=== PATIENT | male | born 1945 | race Two or more races ===

== ENCOUNTER 2025-04-23 00:31 | Inpatient (IN) | payer MEDICAID ==
[~2025-04-23] VITALS: Ht 160 cm; Wt 56.4 kg
[2025-04-23] VITALS (38 sets, daily range): BP systolic 63–147; BP diastolic 12–105; PULSE 129–146; RESP 14–31; TEMP 97.4–97.8; O2SAT 89–100
--- NOTE | 2025-04-23 01:09 | ECG ---
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
[2025-04-23] MEDS: LABETALOL HCL 20 MG/4 ML VL IV ONE ×2 (01:34→05:01)
--- NOTE | 2025-04-23 01:47 | ED.PDOC ---
History of Present Illness HPI Comments 79 y /o M presents with c/c bilateral leg swelling. Patient reports on history of chronic leg swelling and taking a medication, that he is unable to recollect the name of, from [place] to manage symptoms. Patient is a poor historian. He reports a history of DM, HTN, and unspecified 'heart issue.' He endorses on not taking said medication for awhile. Upon triage assessment, patient has a blood pressure of 180/116 and a pulse of 140. Patient denies having any chest pain, shortness of breath, and dizziness. Chief Complaint: Extremity Swelling Time Seen by MD: 01:00 Reviewed Notes: Nurses Notes, Medications, Allergies Allergies: Coded Allergies: NO KNOWN ALLERGIES (Unverified , 04/23/25) Information Source: Patient Mode of Arrival: Ambulatory Severity: Moderate Timing: Days Duration: Since onset Prehospital treatment: None Past Medical History PAST MEDICAL HISTORY: DM, HTN Past Medical History (Other): unspecified 'heart issue' Surgical History: Denies all surgeries Family History Family History: Unknown Social History Smoker: Non-Smoker Alcohol: Denies ETOH Use Drugs: Denies Drug Use Lives In: Home All Other Systems: Reviewed and Negative (Comprehensive review of systems are negative unless otherwise stated above or in HPI) Physical Exam General Appearance: No Apparent Distress, Normal HEENT: Normal ENT Inspection, Pharynx Normal, TMs Normal Neck: Full Range of Motion, Non-Tender, Normal, Normal Inspection Respiratory: Chest Non-Tender, Lungs Clear, No Accessory Muscle Use, No Respiratory Distress, Normal Breath Sounds Cardiovascular: No Edema, No JVD, No Murmur, No Gallop, Normal Peripheral Pulses, Regular Rate/Rhythm Breast Exam: Deferred Gastrointestinal: No Organomegaly, Non Tender, No Pulsatile Mass, Normal Bowel Sounds, Soft Genitalia: Deferred Pelvic: Deferred Rectal: Deferred Extremities: Leg edema (bilateral pitting edema to mid edgar ), No calf tenderness, Normal capillary refill, Normal range of motion, Non-tender, No pedal edema Musculoskeletal : Apperance: Normal Neurologic: Alert, lawyer II-XII nml as Tested, No Motor Deficits, Normal Affect, Normal Mood, No Sensory Deficits Cerebellar Function: Normal Reflexes: Normal Skin: Dry, Normal Color, Warm Lymphatic: No Adenopathy Was a procedure done? Was a procedure done?: Yes Sedation Sedation?: Yes Informed consent obtained: No Sedation start time: 00:00 Sedation end time: 00:00 Sedation total time: Patient was on going prior to and after the procedure was performed. Patient was intubated in ICU and on continuous sedation prior to my performing the procedure. Central Line Recorder of insertion practice: Thrill Performer Occupation of separator inserter: Attending Physician Indication: Hypotension, Relpace: line malfunction Room prepared for procedure: Yes Thrill Performer performed hand hygien: Yes Maximal sterile barrier precau: Mask/Eye shield, Sterile gown, Sterlie gloves, Large sterlie drape Skin Preparation: Chlorhexidine gluconate Skin preparation completely dr: Yes Insertion site: Right, Femoral Central line catheter type: [id number] dialysis Number of lumens: 3 Central line exchanged over a: Yes Antiseptic ointment applied to: No Post Assessment: Proper placement Informed consent obtained: No Risks/benefits/alt described: No UTO Consent Procedure was emergent, patient had already been intubated and sedated, no family was available at the time of the procedure to provide consent. Note: This procedure was performed by me after the patient had already been admitted and was in ICU. EKG EKG : Pulse Rate (adult): 145 [place]: Normal Cardiac Rhythm: Afib Block: None Hypertrophy: None ST: Normal Differential Dx Considerations may include: fluid retention, medication noncompliance, electrolyte imbalance, renal insufficiency, among others X-Ray, Labs, Meds, VS Vital Signs Date Time Temp Pulse Resp B/P (MAP) Pulse Ox O2 Delivery O2 Flow Rate FiO2 04/23/25 04:32 134 04/23/25 04:00 134 17 131/94 (106) 94 04/23/25 03:00 136 23 131/97 (108) 97 04/23/25 02:34 137 131/94 04/23/25 01:47 145 04/23/25 01:40 138 27 121/83 (96) 97 04/23/25 01:34 144 202/121 04/23/25 01:11 98.0 147 18 177/125 (142) 83 98.0 04/23/25 01:10 98.4 146 15 202/121 (148) 97 98.4 04/23/25 01:10 146 15 91 Room Air* 0 21 04/23/25 00:59 145 Lab Test 04/23/25 04:28 04/23/25 02:46 04/23/25 02:26 04/23/25 02:00 Range/Units Troponin I High Sensitivity 36 36 </=54 ng/L Lactic Acid Level 1.3 0.4-2.0 mmol/L Urine Color Light-yellow Yellow Urine Clarity Clear Clear Urine pH 6.0 5.0-9.0 Urine Specific [place] 1.011 1.001-1.035 Urine Protein 1+ H Negative Urine Ketones Negative Negative Urine Blood Negative Negative /uL Urine Nitrite Negative Negative Urine Bilirubin Negative Negative Urine Urobilinogen Normal Negative mg/dL Urine Leukocyte Esterase Negative Negative /uL Urine RBC <1 0 - 3 /hpf Urine Microscopic WBC < 1 0-3 /HPF Urine Squamous Epithelial Cells None seen <5 /hpf Urine Bacteria None seen None Seen /hpf Urine Glucose Normal Normal mg/dL Test 04/23/25 01:57 04/23/25 01:29 04/23/25 01:26 Range/Units POC Glucose 109 H 70-106 mg/dl Hemoglobin A1c 6.7 H <5.7 % A1C White Blood Count 6.9 4.4-10.8 10^3/uL Red Blood Count 5.68 4.5-5.90 10^6/uL Hemoglobin 17.2 13.5-17.5 g/dL Hematocrit 52.2 41.0-53.0 % Mean Corpuscular Volume 91.8 80.0-100.0 fL Mean Corpuscular Hemoglobin 30.3 28.0-32.0 pg Mean Corpuscular Hemoglobin Concent 33.0 32.0-36.0 g/dL Red Cell Distribution Width 14.6 H 11.8-14.3 % Platelet Count 213 140-450 10^3/uL Mean Platelet Volume 8.4 6.9-10.8 fL Neutrophils (%) (Auto) 69.6 37.0-80.0 % Lymphocytes (%) (Auto) 16.2 10.0-50.0 % Monocytes (%) (Auto) 11.9 0.0-12.0 % Eosinophils (%) (Auto) 1.3 0.0-7.0 % Basophils (%) (Auto) 1.0 0.0-2.0 % Neutrophils # (Auto) 4.8 1.6-8.6 10 ^3/uL Lymphocytes # (Auto) 1.1 0.4-5.4 10 ^3/uL Monocytes # (Auto) 0.8 0-1.3 10 ^3/uL Eosinophils # (Auto) 0.1 0-0.8 10 ^3/uL Basophils # (Auto) 0.1 0-0.2 10 ^3/uL Nucleated Red Blood Cells 0.0 % Sodium Level 135 L 136-145 mmol/L Potassium Level 4.3 3.5-5.1 mmol/L Chloride Level 95 L 98-107 mmol/L Carbon Dioxide Level 34 H 20-31 mmol/L Anion Gap 6 5-15 Blood Urea Nitrogen 16 9-23 mg/dL Creatinine 0.93 0.700-1.30 mg/dL Glomerular Filtration Rate Calc 84 >90 mL/min BUN/Creatinine Ratio 17.2 10.0-20.0 Serum Glucose 106 74-106 mg/dL Calcium Level 8.6 L 8.7-10.4 mg/dL Troponin I High Sensitivity 33 </=54 ng/L B-Type Natriuretic Peptide 276.13 0-100 pg/mL Time of 1ST Reevaluation: 01:30 Reevaluation 1ST: Unchanged Patient Education/Counseling: Diagnosis, Treatment Family Education/Counseling: No Family Present Assigned to Dr. Parsons Change of Shift?: Yes Additional Information Previous encounters reviewed: N/A Labs and imaging studies ordered: troponin, CXR, UA, BNP, BMP, CBC, EKG Additional historians interviewed: N/A SEPSIS Sepsis Screen Date sepsis recognized/suspect: Apr 23, 2025 Time Sepsis recognized/suspect: 004 Recent Procedure: No On Antibiotic Therapy: No Respiratory Rate >20: No Heart Rate >90: No Temp<36 C (96.8 F) or >38.3 C: No SBP <90 or MAP <65 mmHG: No New Acute Mental Status Change: No Is the patient on CPAP, BIPAP,: No Physician Orders Electrocardigram (04/23/25 01:07) Chest Xray 1 View (04/23/25 01:14) Solutions Specialist (04/23/25 ) Vital Signs Date Time Temp Pulse Resp B/P (MAP) Pulse Ox O2 Delivery O2 Flow Rate FiO2 04/23/25 04:32 134 04/23/25 04:00 134 17 131/94 (106) 94 04/23/25 03:00 136 23 131/97 (108) 97 04/23/25 02:34 137 131/94 04/23/25 01:47 145 04/23/25 01:40 138 27 121/83 (96) 97 04/23/25 01:34 144 202/121 04/23/25 01:11 98.0 147 18 177/125 (142) 83 98.0 04/23/25 01:10 98.4 146 15 202/121 (148) 97 98.4 04/23/25 01:10 146 15 91 Room Air* 0 21 04/23/25 00:59 145 Laboratory Tests Test 04/23/25 01:26 04/23/25 02:46 White Blood Count 6.9 10^3/uL (4.4-10.8) Lactic Acid Level 1.3 mmol/L (0.4-2.0) Departure 1 Departure Time of Disposition: 06:00 Disposition: 09 ADMITTED INPATIENT Condition: Guarded Critical Care Note Critical Care Time?: No Stability Stability form required: No Heart Score Heart Score: Heart Score Response (Comments) Value History N/A 0 EKG N/A 0 Age N/A 0 Risk Factors N/A 0 Troponin N/A 0 Total 0 I personally scribed for DARIUS CASTAÑEDA ([email or web address]) on 04/23/25 at 01:47. Electronically submitted by Pedro Maza ([email or web address]). DARIUS CASTAÑEDA Apr 23, 2025 01:47 DANG FINK MD Apr 27, 2025 05:36
--- NOTE | 2025-04-23 02:00 | DVH ---
CHEST RADIOGRAPH Indication: sob Technique: Single frontal view of the chest was obtained COMPARISON: None FINDINGS: Lines and Tubes: None Lungs: Moderate left and small right pleural effusions. Moderate left basilar pulmonary airspace dise ase and right basilar atelectasis. No pneumothorax. Cardiomediastinal contours: Cardiomegaly. Bones: Unremarkable IMPRESSION: 1. Moderate left and small right pleural effusions and left basilar pulmonary airspace disease. 2. Cardiomegaly.
[2025-04-23 02:08] LABS: Hematocrit 52.2 % (41.0-53.0); Hemoglobin 17.2 g/dL (13.5-17.5); Mean Corpuscular Hemoglobin 30.3 pg (28.0-32.0); Mean Corpuscular Volume 91.8 fL (80.0-100.0); Nucleated Red Blood Cells % 0.0 %
[2025-04-23 02:16] LABS: Potassium 4.3 mmol/L (3.5-5.1)
[2025-04-23 02:17] LABS: Anion Gap 6 (5-15)
[2025-04-23 02:19] LABS: Calcium 8.6 mg/dL (8.7-10.4); Carbon Dioxide 34 mmol/L (20-31); Chloride 95 mmol/L (98-107); Sodium 135 mmol/L (136-145)
[2025-04-23 02:22] LABS: BUN/Creatinine Ratio 17.2 (10.0-20.0); Blood Urea Nitrogen 16 mg/dL (9-23); Glucose 106 mg/dL (74-106)
[2025-04-23 03:04] LABS: Urine Protein, UAD 1+ (Negative)
[2025-04-23] MEDS ORDERED: ONDANSETRON HCL 4 MG/2 ML VIAL IV PRN (05:00)
[2025-04-23] MEDS ORDERED: DOCUSATE SOD 100 MG CAP PO PRN (05:00)
[2025-04-23] MEDS ORDERED: NITROGLYCERIN 0.4 MG SL TAB SL PRN (05:00)
[2025-04-23] MEDS ORDERED: MORPHINE SULFATE INJ 2 MG/ml SYRG IV PRN ×2 (05:00)
[2025-04-23] MEDS ORDERED: IPRATROPIUM BROM 0.5 MG/2.5ML INH SOL NEB PRN (05:15)
[2025-04-23] MEDS ORDERED: LEVALBUTEROL HCL 1.25 MG/3 ML NEB NEB PRN (05:15)
[2025-04-23] MEDS: FUROSEMIDE 40 MG/4 ML VIAL IV ONE ×2 (05:49→18:45)
--- NOTE | 2025-04-23 05:51 | DVHHPRES ---
History of Present Illness Resident Creating Document: MICHAEL GOMEZ RESIDENT History of Present Illness Mr. Farley is a 79-year-old male who presents with a chief complaint of bilateral leg swelling. He reports a chronic history of leg swelling, previously managed with a medication obtained from [place], the name of which he cannot recall. He admits to not taking this medication for some time. The patient is a poor historian but endorses a past medical history of diabetes mellitus (DM), hypertension (HTN), and an unspecified "heart issue." He denies any recent chest pain, shortness of breath, or dizziness. On triage, his blood pressure was markedly elevated at 180/116 mmHg with a pulse of 140 bpm. Given his history and current presentation, differential diagnoses include fluid retention possibly due to cardiac or renal insufficiency, medication noncompliance, electrolyte imbalance, and other systemic causes. Past Medical History diabetes mellitus (DM), hypertension (HTN), and an unspecified "heart issue." Past Surgical History none Family History: None (Noncontributory) Smoke: No ALCOHOL: none Drugs: None Lives: with Family Domestic Violence: Neg Review of Systems Constitutional: No: Fever, Chills, Sweats, Weakness, Malaise, Other Eyes: No: Pain, Vision change, Conjunctivae inflammation, Eyelid inflammation, Other, Redness ENT: No: Ear pain, Ear discharge, Nose pain, Nose discharge, Nose congestion, Mouth pain, Mouth swelling, Throat pain, Throat swelling, Other Respiratory: Cough, Dry, Shortness of breath, SOB with excertion Cardiovascular: Palpitations, Paroxysmal Noc. Dyspnea, Edema; No: Chest Pain, Lt Headedness, Other Gastrointestinal: No: Nausea, Vomiting, Abdominal Pain, Diarrhea, Constipation, Melena, Hematochezia, Other Genitourinary: No Dysuria, No Frequency, No Incontinence, No Hematuria, No Retention, No Other Musculoskeletal: other (Bilateral leg swelling); No: neck pain, shoulder pain, arm pain, back pain, hand pain, leg pain, foot pain Skin: No: Rash, Lesions, Jaundice, Bruising, Other Neurological: No: Weakness, Numbness, Incoordination, Change in speech, Confusion, Seizures, Other Allergies: Coded Allergies: NO KNOWN ALLERGIES (Unverified , 04/23/25) Medications Current Medications Medications Dose Ordered Sig/Jose Alfredo Route Start Time Stop Time Status Last Admin Dose Admin Docusate Sodium 100 mg BIDPRN PRN PO 04/23/25 05:00 Acetaminophen 650 mg Q6HP PRN PO 04/23/25 05:00 Morphine Sulfate 2 mg Q4HPRN PRN IV 04/23/25 05:00 Nitroglycerin 0.4 mg Q5MINP PRN SL 04/23/25 05:00 Morphine Sulfate 2 mg Q30M PRN IV 04/23/25 05:00 Exam Vital Signs Vital Signs Date Time Temp Pulse Resp B/P (MAP) Pulse Ox O2 Delivery O2 Flow Rate FiO2 04/23/25 05:01 133 138/96 04/23/25 04:00 17 94 04/23/25 01:11 98.0 98.0 General Appearance: Alert, Oriented X3, Cooperative, No acute distress HEENT: Atraumatic, PERRLA, EOMI, Mucous membr. moist/pink, Other (On N/C ) Respiratory: Clear to auscultation, Normal air movement, Other (Bilateral basal crackles, 4 L of nasal cannula oxygen,) Cardiovascular: Regular rate, Normal S1, Normal S2, No murmurs, Other (Tachycardic, no adventitious sounds.) Abdominal: Normal bowel sounds, Soft, No tenderness, No hepatospenomegaly, No masses Extremities: Other (Edema, painless, we will ruled out DVT.) Skin: No rashes, No breakdown, No significant lesion Neuro: Normal gait, Normal speech, Strength at 5/5 X4 ext, Normal tone, Sensation intact, Cranial nerves 3-12 NL, Reflexes 2+ Psych/Mental Status: Mental status NL, Mood NL Labs/Xrays Labs Test 04/23/25 02:46 04/23/25 02:26 04/23/25 02:00 04/23/25 01:57 Range/Units Lactic Acid Level 1.3 0.4-2.0 mmol/L Troponin I High Sensitivity 36 </=54 ng/L Urine Color Light-yellow Yellow Urine Clarity Clear Clear Urine pH 6.0 5.0-9.0 Urine Specific [place] 1.011 1.001-1.035 Urine Protein 1+ H Negative Urine Ketones Negative Negative Urine Blood Negative Negative /uL Urine Nitrite Negative Negative Urine Bilirubin Negative Negative Urine Urobilinogen Normal Negative mg/dL Urine Leukocyte Esterase Negative Negative /uL Urine RBC <1 0 - 3 /hpf Urine Microscopic WBC < 1 0-3 /HPF Urine Squamous Epithelial Cells None seen <5 /hpf Urine Bacteria None seen None Seen /hpf Urine Glucose Normal Normal mg/dL POC Glucose 109 H 70-106 mg/dl Test 04/23/25 01:26 Range/Units White Blood Count 6.9 4.4-10.8 10^3/uL Red Blood Count 5.68 4.5-5.90 10^6/uL Hemoglobin 17.2 13.5-17.5 g/dL Hematocrit 52.2 41.0-53.0 % Mean Corpuscular Volume 91.8 80.0-100.0 fL Mean Corpuscular Hemoglobin 30.3 28.0-32.0 pg Mean Corpuscular Hemoglobin Concent 33.0 32.0-36.0 g/dL Red Cell Distribution Width 14.6 H 11.8-14.3 % Platelet Count 213 140-450 10^3/uL Mean Platelet Volume 8.4 6.9-10.8 fL Neutrophils (%) (Auto) 69.6 37.0-80.0 % Lymphocytes (%) (Auto) 16.2 10.0-50.0 % Monocytes (%) (Auto) 11.9 0.0-12.0 % Eosinophils (%) (Auto) 1.3 0.0-7.0 % Basophils (%) (Auto) 1.0 0.0-2.0 % Neutrophils # (Auto) 4.8 1.6-8.6 10 ^3/uL Lymphocytes # (Auto) 1.1 0.4-5.4 10 ^3/uL Monocytes # (Auto) 0.8 0-1.3 10 ^3/uL Eosinophils # (Auto) 0.1 0-0.8 10 ^3/uL Basophils # (Auto) 0.1 0-0.2 10 ^3/uL Nucleated Red Blood Cells 0.0 % Sodium Level 135 L 136-145 mmol/L Potassium Level 4.3 3.5-5.1 mmol/L Chloride Level 95 L 98-107 mmol/L Carbon Dioxide Level 34 H 20-31 mmol/L Anion Gap 6 5-15 Blood Urea Nitrogen 16 9-23 mg/dL Creatinine 0.93 0.700-1.30 mg/dL Glomerular Filtration Rate Calc 84 >90 mL/min BUN/Creatinine Ratio 17.2 10.0-20.0 Serum Glucose 106 74-106 mg/dL Calcium Level 8.6 L 8.7-10.4 mg/dL B-Type Natriuretic Peptide 276.13 0-100 pg/mL Assessment/Plan Assessment/Plan #hypertensive emergency/urgency: Elevated BNP might be pointing towards end- organ injury , troponin unremarkable, repeat EKG to be done, if needed we will consider slowing down the heart. Slow titration of blood pressure over 24-48 hours. Avoid sudden drop of blood pressure. #essential hypertension, likely uncontrolled: No known baseline ideally should be 130/80 or below, as per AHA/ACC guidelines for adult diabetic, we will Check for TSH, ESR CRP, orthostatic vitals and bilateral differential blood pressure in the arms. #cardiomegaly dt possible underlying cardiomyopathy: Possible LVH, no known LVEF check TTE , Initial workup for structural disease/ ruled out possible pericardial effusion/ tamponade. #likely CHF exacerbation: IV Lasix to continue check for magnesium and potassium corrected electrolytes as needed. #Acute hypoxic respiratory failure: likely due to CHF exacerbation. on 4 L of nasal cannula oxygen, wean as tolerated. 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 0 weight loss. #Prolonged QTC 539: we will do bazette correction, avoid medications affecting QTC and correct Mg. #supraventricular tachycardia: Check telemetry, hemodynamically stable, if hemodynamically unstable we will consider ACLS protocol. One time IV labetalol given. Tachycardia heart rate in 145 / check for EKG, keep the patient on telemetry. Differentials include decompensated heart failure, beta-patricia withdrawal, PE/ DVT, were checking D-dimer and bilateral lower leg ultrasound. AFib versus flutter, limited data, with labs back we will check for CHADSVasc score we will more than 5, ideal for anticoagulation, after checking DVT we will consider therapeutic versus prophylactic anticoagulation. #diaphragmatic flattening, inflated lung possible underlying COPD: As needed levalbuterol and ipratropium, close monitoring, we will keep SpO2 acceptable and titrate down oxygen as possible. #bilateral pleural effusion: Left-sided pleural effusion> Left-sided, could be due to CHF exacerbation original fluid, with IV Lasix, interval chest x-ray can be done, increased broncho vascular marking likely underlying viral disease/ CHF related #Possible underlying left lower lobe pneumonia: Gram-positive/Gram-negative Based on CXR and physical exam not entirely ruled out: We will keep the patient on antibiotic coverage as an older patient might not be able to mount appropriate immune response. will avoid fluids as overloaded state. #Poor medical adherence: Can not recall medications , does not have a establish PCP or coconut jelly roller. #history of diabetes mellitus: BG on the lower side 109, at this point we will not start SSI but we will check HbA1c, lenient BG control gentleman high-risk of hypoglycemia with in-hospital BG 140-180, with target HbA1c between 7-8. #Mild bilateral atelectasis: Out of bed, IV diuresis, if not improved incentive spirometry can be tried later. #medication reconciliation to be done carefully #IV PPI for GI prophylaxis, and SCD for DVT prophylaxis, ruled out DVT, if needed we will consider anticoagulation. PCP: Specialist Relevant To Admission: Cardiology, advanced age, close follow up for GDM T up titration, rule out underlying cardiomyopathy and check for LVEF percentage. No previous record, poor historian. Case discussed with Dr. Toro. Code Status: Full code. Goals of care and care planning discussion needed total 35 minutes bedside. patient is agreeable to the plan and hospital admission. Plan discussed with: Patient My Orders Orders - MICHAEL GOMEZ RESIDENT Procedure Category Date Status Time Admit ADMIT 04/23/25 Transmitted 04:58 Code Status CODE 04/23/25 Transmitted 04:58 Oxygen Per Hour RT 04/23/25 Transmitted 04:58 Docusate Sodium PHA 04/23/25 In Process Capsule (Colace 05:00 Fall Risk Precautions AV 04/23/[address] 04:58 Complete Blood Count LAB 04/24/25 Verified 04:00 Comprehensive LAB 04/24/25 Verified Metabolic Panel 04:00 Cardiac DIET 04/23/25 Transmitted Diet-2gna,Lofat,Lochol Breakfast Pt Request For Service PT 04/23/25 Logged 04:58 Echo 2d Mode Cardiac US 04/23/25 Logged DOP 04:58 Condition: Serious AV 04/23/25 In Process 04:58 Acetaminophen Tablet PHA 04/23/25 In Process (Tylenol Tablet) 05:00 Morphine Sulfate PHA 04/23/25 In Process Injection 05:00 Sequential AV 04/23/25 In Process Compression Device Nitroglycerin PHA 04/23/25 In Process Sublingual (Ntrostat 05:00 Morphine Sulfate PHA 04/23/25 In Process Injection 05:00 Oxygen By Nasal RT 04/23/25 Transmitted Cannula 04:58 Stat Ekg For Chest AV 04/23/25 In Process Pain 04:58 Notify Of Changes AV 04/23/25 In Process From Base 04:58 Farm Implement Engine Mechanic For [facility] 04/23/25 In Process 24 Hours 04:58 Emergency Dysrhythmia AV 04/23/25 In Process Protocol 04:58 Rhythm Strips Once AV 04/23/25 In Process Every Shift 04:58 Hepatic Panel LAB 04/23/25 Logged 05:04 Thyroid Stimulating LAB 04/23/25 Logged Hormone 05:04 Erythrocyte LAB 04/23/25 Logged Sedimentation Rate 05:04 C-Reactive Protein LAB 04/23/25 Logged 05:04 Orthostatic Vital ORDERS 04/23/25 Verified Signs 05:11 Communication Order ORDERS 04/23/25 Verified 05:11 Get List Of Home ORDERS 04/23/25 Verified Medications 05:11 Magnesium LAB 04/23/25 Verified 05:11 Levalbuterol Hcl PHA 04/23/25 Verified (Xopenex Medneb) 05:15 Ipratropium Medneb PHA 04/23/25 Verified (Atrovent Medneb) 05:15 Med Neb Initial RT 04/23/25 Verified Treatment 05:11 Med Vic Sub Treatment RT 04/23/25 Verified 05:11 Obtain Daily Weight [facility] 04/23/25 Verified 05:11 Covid19 Antigen [place] [facility] 04/23/25 Verified Rapid Influenza A&B LAB 04/23/25 Verified 05:11 Date of Service: Apr 23, 2025 Billing Provider: NIEVES TORO MD Common Visit Codes: 86295-TFBRSFI INP/OBS CARE (HIGH) Secondary Visit Codes: [id number] CARE PLAN 30 MINUTES MICHAEL GOMEZ RESIDENT Apr 23, 2025 05:51
--- NOTE | 2025-04-23 07:06 | DVH ---
Bilateral lower extremity venous duplex Clinical History: Leg swelling with persistant tachycardia and hypoxia. Comparison: None Findings: Duplex Doppler evaluation of the deep venous systems of both lower extremities from the common femora l veins to the popliteal veins including color Doppler and spectral/pulsed waveform analysis was perf ormed. RIGHT SIDE: The common femoral vein demonstrates appropriate compressibility and waveform variability. There is compressibility/patency of the great saphenous vein at the proximal thigh. The femoral vein demonstrates appropriate compressibility and waveform variability. The deep femoral vein demonstrates appropriate compressibility and waveform variability. The popliteal vein demonstrates appropriate compressibility and waveform variability. There is normal compressibility at the tibioperoneal trunk. LEFT SIDE: The common femoral vein demonstrates appropriate compressibility and waveform variability. There is compressibility/patency of the great saphenous vein at the proximal thigh. The femoral vein demonstrates appropriate compressibility and waveform variability. The deep femoral vein demonstrates appropriate compressibility and waveform variability. The popliteal vein demonstrates appropriate compressibility and waveform variability. There is normal compressibility at the tibioperoneal trunk. IMPRESSION: 1. No right or left femoropopliteal venous thrombosis. 2. If clinical concern/symptoms persist or worsen, short-interval follow-up study is suggested. 3. END IMPRESSION:
[2025-04-23 07:56] LABS: Alanine Aminotransferase 13.0 U/L (7-40); Albumin 4.1 g/dL (3.2-4.8); Alkaline Phosphatase 70.0 U/L (46-116); Bilirubin, Direct 0.4 mg/dL (<0.3); Bilirubin, Total 0.9 mg/dL (0.2-1.0); Total Protein 7.1 g/dL (5.7-8.2)
[2025-04-23 08:19] LABS: COVID19 ANTIGEN SOFIA FIA NEGATIVE (NEGATIVE)
[2025-04-23 08:26] LABS: Hemoglobin 17.5 g/dL (13.5-17.5)
[2025-04-23 08:28] LABS: Hematocrit 54.2 % (41.0-53.0); Mean Corpuscular Hemoglobin 29.9 pg (28.0-32.0); Mean Corpuscular Volume 92.4 fL (80.0-100.0); Nucleated Red Blood Cells % 0.3 %
[2025-04-23 08:36] LABS: Alanine Aminotransferase 15 U/L (7-40); Albumin 4.2 g/dL (3.2-4.8); Alkaline Phosphatase 72 U/L (46-116); Anion Gap 10 (5-15); BUN/Creatinine Ratio 20.6 (10.0-20.0); Bilirubin, Total 0.9 mg/dL (0.2-1.0); Blood Urea Nitrogen 20 mg/dL (9-23); Calcium 9.1 mg/dL (8.7-10.4); Carbon Dioxide 28 mmol/L (20-31); Chloride 97 mmol/L (98-107); Glucose 146 mg/dL (74-106); Potassium 5.4 mmol/L (3.5-5.1); Sodium 135 mmol/L (136-145); Total Protein 7.0 g/dL (5.7-8.2)
[2025-04-23 10:07] LABS: Base Excess 1.9 mmol/L (-2.0-3.0)
--- NOTE | 2025-04-23 10:39 | DVHINCON2 ---
Date Seen: Apr 23, 2025 Referring Physician MD Erica resident Reason for Consultation CHF exacerbation History of Present Illness This is a pleasant Yi-speaking 79-year-old male who presents to emergency room with chief complaint of bilateral lower extremity edema for approximately 1 5 days. The patient and his , who was at bedside, report that they are visiting their daughter from [place]. The patient's states that she noticed that the patient's legs have been progressively worsening so they decided to come to the emergency room for further evaluation. He denies any chest pain at time of assessment. Initial twelve lead electrocardiogram reveals sup raventricular tachycardia. The patient was given labetalol 20 mg IV x1 in the emergency room by attending physician. At the time of assessment, the patient remains in sinus tachycardia. Initial troponin level of 33ng/L with flat trend thereafter. Initial BNP level of 276.13pg/mL. Significant past medical history includes congestive heart failure, hypertension, dyslipidemia, type 2 diabetes mellitus, and history of tobacco use. The patient and his confirmed that he sees a wash tank tender in [place]. Past Medical History Past medical history reviewed. No other significant than mentioned above. Past Surgical History Denies any previous surgeries Family History Family history reviewed. Social History Patient has a 80 pack-year history, quit smoking approximately 20 years ago Denies illicit drug use Denies any alcohol use Allergies: Coded Allergies: NO KNOWN ALLERGIES (Unverified , 04/23/25) Home Meds Home medications reviewed. Current Medications Current Medications Medications (Trade) Dose Ordered Sig/Jose Alfredo Route PRN Reason Start Time Stop Time Status Last Admin Ondansetron HCl (Zofran) 4 mg Q4HP PRN IV NAUSEA / VOMITING 04/23/25 05:00 04/23/25 05:14 DC Docusate Sodium (Colace Capsule) 100 mg BIDPRN PRN PO FOR CONSTIPATION 04/23/25 05:00 Acetaminophen (Tylenol Tablet) 650 mg Q6HP PRN PO PAIN SCALE 1-3 OR TEMP>100.4 04/23/25 05:00 Morphine Sulfate 2 mg Q4HPRN PRN IV SEVERE PAIN (7-10 PAIN SCALE) 04/23/25 05:00 04/23/25 09:49 DC Nitroglycerin (Ntrostat Sublingual) 0.4 mg Q5MINP PRN SL FOR CHEST PAIN 04/23/25 05:00 Morphine Sulfate 2 mg Q30M PRN IV FOR CHEST PAIN 04/23/25 05:00 04/23/25 09:49 DC Levalbuterol HCl (Xopenex Medneb) 0.625 mg Q6HR PRN NEB SHORTNESS OF BREATH 04/23/25 05:15 04/23/25 09:49 DC Ipratropium [place] (Atrovent Medneb) 0.5 mg Q6HP PRN NEB SHORTNESS OF BREATH 04/23/25 05:15 04/23/25 09:49 DC Furosemide (Lasix Injection) 40 mg DAILY IV 04/23/25 10:00 UNV Carvedilol (Coreg Tablet) 3.125 mg Q12HR PO 04/23/25 10:00 Review of Systems Constitutional: No symptom reported Ears, Nose, & Throat: No symptom reported Eyes: No symptom reported Neurological: No symptoms reported Pulmonary/Respiratory: No symptoms reported Cardiovascular: Bilateral lower extremity edema Gastrointestinal: No symptom reported Genitourinary: No symptom reported Musculoskeletal: No symptom reported Skin: No symptom reported Psychiatric: No symptom reported Endocrine: No symptom reported Hematologic/Lymphatic: No symptom reported Vital Signs Vital Signs Date Time Temp Pulse Resp B/P (MAP) Pulse Ox O2 Delivery O2 Flow Rate FiO2 04/23/25 09:30 138 20 147/99 (115) 97 04/23/25 08:00 Nasal Cannula* 2 28 04/23/25 07:30 98.7 98.7 Physical Exam General Appearance: Cooperative. Well-developed. Well-nourished. No acute distress. Pulmonary/Respiratory: Diminished throughout Cardiovascular/Chest: Regular rate and rhythm. Peripheral Pulses: 2+ Radial (R). 2+ Radial (L). 1+ Pedal (R). 1+ Pedal (L) Abdominal Exam: Normal bowel sounds. Ankle Exam: 3+ pitting edema Lower extremities: 3+ pitting edema Neuro/Mental Status: A/OX4, coherent. Thoughts/Psych: Normal thought pattern. Appropriate mood and affect. Good judgment and insight. Appearance: No acute distress. Skin Exam: Normal inspection. Normal color. Warm and dry. Labs/Diagnostic Data Labs Test 04/23/25 10:02 04/23/25 07:20 04/23/25 07:04 04/23/25 04:28 Range/Units Blood Gas Specimen Type Arterial Blood Gas Sample Site Right radial Blood Gas Patient Temperature 37.0 Arterial Blood Date Drawn [id number] Arterial Blood pH 7.170 *L 7.350-7.450 Arterial Blood Partial Pressure CO2 99.3 *H 35.0-48.0 mmHg Arterial Blood Partial Pressure O2 104.2 83.0-108.0 mmHg Arterial Blood HCO3 35.4 H 21.0-28.0 mmol/L Arterial Blood Oxygen Saturation 96.8 94.0-98.0 % Arterial Blood Base Excess 1.9 -2.0-3.0 mmol/L Arterial Blood Oxyhemoglobin 95.3 94.0-98.0 % Arterial Blood Carboxyhemoglobin 0.9 0.5-1.5 % Arterial Blood Methemoglobin 0.7 0.0-1.5 % Darrius Test Yes Blood Gas Total Hemoglobin 18.90 *H 13.5-17.5 g/dL Blood Gas Modality Nasal cannula FiO2 % 32.0 Blood Gas Critical Value Read Back Yes Blood Gas Notified Whom Leila fung md Blood Gas Notified Time [id number] Blood Gas Notified By Rogelio cabrera Influenza Type A Antigen Negative Negative Influenza Type B Antigen Negative Negative SARS-CoV-2 Antigen (Rapid) Negative NEGATIVE White Blood Count 5.8 4.4-10.8 10^3/uL Red Blood Count 5.87 4.5-5.90 10^6/uL Hemoglobin 17.5 13.5-17.5 g/dL Hematocrit 54.2 H 41.0-53.0 % Mean Corpuscular Volume 92.4 80.0-100.0 fL Mean Corpuscular Hemoglobin 29.9 28.0-32.0 pg Mean Corpuscular Hemoglobin Concent 32.4 32.0-36.0 g/dL Red Cell Distribution Width 14.6 H 11.8-14.3 % Platelet Count 212 140-450 10^3/uL Mean Platelet Volume 8.8 6.9-10.8 fL Neutrophils (%) (Auto) 74.9 37.0-80.0 % Lymphocytes (%) (Auto) 12.8 10.0-50.0 % Monocytes (%) (Auto) 10.3 0.0-12.0 % Eosinophils (%) (Auto) 1.1 0.0-7.0 % Basophils (%) (Auto) 0.9 0.0-2.0 % Neutrophils # (Auto) 4.3 1.6-8.6 10 ^3/uL Lymphocytes # (Auto) 0.7 0.4-5.4 10 ^3/uL Monocytes # (Auto) 0.6 0-1.3 10 ^3/uL Eosinophils # (Auto) 0.1 0-0.8 10 ^3/uL Basophils # (Auto) 0.1 0-0.2 10 ^3/uL Nucleated Red Blood Cells 0.3 % Erythrocyte Sedimentation Rate 1 0-20 mm/hr D-Dimer, Quantitative 1.97 H 0.0-0.49 mg/L FEU Sodium Level 135 L 136-145 mmol/L Potassium Level 5.4 H 3.5-5.1 mmol/L Chloride Level 97 L 98-107 mmol/L Carbon Dioxide Level 28 20-31 mmol/L Anion Gap 10 5-15 Blood Urea Nitrogen 20 9-23 mg/dL Creatinine 0.97 0.700-1.30 mg/dL Glomerular Filtration Rate Calc 80 >90 mL/min BUN/Creatinine Ratio 20.6 H 10.0-20.0 Serum Glucose 146 H 74-106 mg/dL Calcium Level 9.1 8.7-10.4 mg/dL Magnesium Level 1.7 1.6-2.6 mg/dL Total Bilirubin 0.9 0.2-1.0 mg/dL Direct Bilirubin 0.4 H <0.3 mg/dL Aspartate Amino Transferase (AST) 31 <34 U/L Alanine Aminotransferase (ALT) 15 7-40 U/L Alkaline Phosphatase 72 46-116 U/L C-Reactive Protein High Sensitivity 0.38 <1.0 mg/dL Total Protein 7.0 5.7-8.2 g/dL Albumin 4.2 3.2-4.8 g/dL Thyroid Stimulating Hormone (TSH) 0.85 0.55-4.78 uIU/mL Troponin I High Sensitivity 36 </=54 ng/L Test 04/23/25 02:46 04/23/25 02:00 04/23/25 01:57 04/23/25 01:29 Range/Units Lactic Acid Level 1.3 0.4-2.0 mmol/L Urine Color Light-yellow Yellow Urine Clarity Clear Clear Urine pH 6.0 5.0-9.0 Urine Specific [place] 1.011 1.001-1.035 Urine Protein 1+ H Negative Urine Ketones Negative Negative Urine Blood Negative Negative /uL Urine Nitrite Negative Negative Urine Bilirubin Negative Negative Urine Urobilinogen Normal Negative mg/dL Urine Leukocyte Esterase Negative Negative /uL Urine RBC <1 0 - 3 /hpf Urine Microscopic WBC < 1 0-3 /HPF Urine Squamous Epithelial Cells None seen <5 /hpf Urine Bacteria None seen None Seen /hpf Urine Glucose Normal Normal mg/dL POC Glucose 109 H 70-106 mg/dl Hemoglobin A1c 6.7 H <5.7 % A1C Test 04/23/25 01:26 Range/Units B-Type Natriuretic Peptide 276.13 0-100 pg/mL Assessment Rule out structural heart disease Hypertensive urgency Supraventricular tachycardia, now sinus tachycardia Prolonged QTc interval Acute hypoxic respiratory failure Bilateral pleural effusions Type 2 diabetes mellitus Hyperkalemia Obesity Plan/Recommendation We will continue with the following plan/recommendations (Dr. Mercado): * Transthoracic echocardiogram to evaluate cardiac function * Initiate guideline directed medical therapy for CHF as tolerated * Avoid ACEi/ARB/ARNI, and MRA (spironolactone) at this time given borderline hyperkalemia * Strict intake and output, daily weights, maintain fluid restriction * Diuresis as tolerated * Avoid medications that prolong QTc interval * Cardiac surveillance Thank you for allowing us to care for this patient. Please call with any questions or concerns. Critical care time spent: 44 minutes This medical document was created using an electronic medical record system with voice recognition software and computerized dictation system. Although this document has been carefully reviewed, there might still be some phonetic and typographical errors. Occasional wrong-word or ``sound-alike substitutions may have occurred due to the inherent limitations of voice recognition software. These areas are purely typographical due to imperfections of the software programs and do not reflect any compromise in the patient's medical care. Please read the chart carefully and recognize, using context, where these substitutions have occurred. Plan discussed with: Patient NYHA Physical activity limitations: NA Date of Service: Apr 23, 2025 Billing Provider: BREE DEVLIN Cardiology Common Codes: 17527-[id number] INP/OBS CARE (High) Cardiology Consultation Codes: 30611-[id number] CONSULT <45MIN BREE DEVLIN Apr 23, 2025 10:39
[2025-04-23] MEDS: CARVEDILOL 3.125 MG TAB PO SCH (11:30)
[2025-04-23] MEDS: methylPREDNISolone SOD SUCC 40 MG/ML VL IV SCH (11:42)
[2025-04-23] MEDS: cefTRIAXone 1GM/50ML D5W 50 ML IV SCH (11:44)
[2025-04-23] MEDS: FUROSEMIDE 40 MG/4 ML VIAL IV SCH (11:44)
[2025-04-23] MEDS: ENOXAPARIN SOD 40 MG/0.4 ML SYRINGE SC SCH (11:45)
[2025-04-23] MEDS: DOXYCYCLINE 100MG/100ML 100 ML IV SCH (12:09)
[2025-04-23] MEDS: DEXTROSE (50%) 50ML SYRG IV ONE (12:37)
[2025-04-23] MEDS: InsuLIN REG 1unit/0.01ml Soln (100units/ml) IV ONE (12:37)
[2025-04-23 12:42] LABS: Base Excess 5.3 mmol/L (-2.0-3.0)
--- NOTE | 2025-04-23 15:28 | DVHPNRES ---
Progress Note Date Seen: Apr 23, 2025 Resident Creating Document: MIS REYEZ RESIDENT Has the PT tested + for MRSA If YES, has PT been informed?: No Medical Necessity Reason Pt with a Central, PICC or Fol: No Subjective Review of Systems Mr. Farley is a 79-year-old male who presents with a chief complaint of bilateral leg swelling. He reports a chronic history of leg swelling, previously managed with a medication obtained from [place], the name of which he cannot recall. He admits to not taking this medication for some time. The patient is a poor historian but endorses a past medical history of diabetes mellitus (DM), hypertension (HTN), and an unspecified "heart issue." He denies any recent chest pain, shortness of breath, or dizziness. On triage, his blood pressure was markedly elevated at 180/116 mmHg with a pulse of 140 bpm. Given his history and current presentation, differential diagnoses include fluid retention possibly due to cardiac or renal insufficiency, medication noncompliance, electrolyte imbalance, and other systemic causes. Past Medical History diabetes mellitus (DM), hypertension (HTN), and an unspecified "heart issue." Past Surgical History none Family History: None (Noncontributory) Smoke: No ALCOHOL: none Drugs: None Lives: with Family Domestic Violence: Neg 04/23/25: patient was found with high oxygen requirements, respiratory acidosis, BIPAP was placed, POCUS at bedside possible reduced ejection fraction and hypokinesis, patient is having acute respiratory failure due to acute exacerbation of heart failure and COPD, antibiotics and solumedrol were started, mild hypokalemia was resolved with IV insulin 10 ui and furosemide, patient still has HR above 130, carvedilol is added, patient is MARIELENA status Objective vital signs Vital Sign Date Time Temp Pulse Resp B/P (MAP) Pulse Ox O2 Delivery O2 Flow Rate FiO2 04/23/25 15:00 135 17 104/71 (82) 92 04/23/25 12:44 Facial BiPAP Mask 30 04/23/25 12:00 98.8 98.8 04/23/25 08:00 2 medications Current Medications Medications Dose Ordered Sig/Jose Alfredo Route Start Time Stop Time Status Last Admin Dose Admin Acetaminophen 650 mg Q6HP PRN PO 04/23/25 05:00 Nitroglycerin 0.4 mg Q5MINP PRN SL 04/23/25 05:00 Furosemide 40 mg DAILY IV 04/23/25 10:00 04/23/25 11:44 40 MG Carvedilol 3.125 mg Q12HR PO 04/23/25 10:00 04/23/25 11:30 3.125 MG Methylprednisolone Sodium Succinate 40 mg BID IV 04/23/25 11:00 04/23/25 11:42 40 MG Ceftriaxone Sodium 50 ml @ 100 mls/hr DAILY@09 IV 04/23/25 11:00 04/23/25 11:44 100 MLS/HR Doxycycline Hyclate 100 ml @ 50 mls/hr Q12H IV 04/23/25 11:00 04/23/25 12:09 50 MLS/HR Enoxaparin Sodium 40 mg DAILY SC 04/23/25 11:00 04/23/25 11:45 40 MG Examination General Appearance: Alert, Oriented X3, Cooperative,acute respiratory distress HEENT: Atraumatic, PERRLA, EOMI, Mucous membr. moist/pink, jugular ingurgitation Respiratory: Bilateral basal crackles, 4 L of nasal cannula oxygen Cardiovascular: Regular rate, Normal S1, Normal S2, No murmurs, Tachycardic Abdominal: Normal bowel sounds, Soft, No tenderness, No hepatospenomegaly, No masses Extremities: Edema 2+ Skin: No rashes, No breakdown, No significant lesion Neuro: Normal gait, Normal speech, Strength at 5/5 X4 ext, Normal tone, Sensation intact, Cranial nerves 3-12 NL, Reflexes 2+ Psych/Mental Status: Mental status NL, Mood NL laboratory and microbiology Laboratory Tests 04/23/25 14:12 04/23/25 07:04 Test 04/23/25 07:04 Range/Units Serum Glucose 146 H 74-106 mg/dL Problem List/Assessment/Plan Problem List/Assessment/Plan Neurologic #Acute metabolic encephalopathy due to sever acidosis due to hypercapnia Patient is on BIPAP Drowsy No need on ETT Cardiology #Acute exacerbation of heart failure with possible reduced ejection fraction BIPAP Furosemide iv 40 mg daily Pending ECHO Hold on GDMT due to hyperkalemia: will be started after stabilization #Sinus tachycardia #QT prolongation Carvedilol #Hypertensive emergency resolved Carvedilol, BPs are now normal Labetalol IV given at admission Respiratory #Sepsis? #Acute respiratory failure due to COPD exacerbation and heart failure #Bilateral pleural effusions #Possible pneumonia gram+/ gram - #Severe respiratory acidosis BIPAP stared at 11 am: control ABG, showed improvement in ph and CO2, next ABG at 5 pm, continue on BIPAP Doxycycline Ceftriaxone Solumedrol BID xray: Moderate left and small right pleural effusions and left basilar pulmonary airspace disease Endocrinology #DM type 2, hba1c 6.7 ISS, mild Renal #Hyperkalemia, resolved IV insulin and furosemide given DVT prophylaxis: Enoxaparin SC Case discussed with Dr Jones Plan discussed with: Patient, Other (rn) My Orders My Orders Orders - MIS REYEZ RESIDENT Procedure Category Date Status Time Furosemide Injection PHA 04/23/25 In Process (Lasix Injection) 10:00 Abg W/ Co-Ox RT 04/23/25 Logged 09:52 Carvedilol Tablet PHA 04/23/25 In Process (Coreg Tablet) 10:00 BIPAP RT 04/23/25 Logged 10:17 Methylprednisolone PHA 04/23/25 In Process Sod Succ (Solu Medrol 11:00 Ceftriaxone 1gm/50ml PHA 04/23/25 In Process D5w (Rocephin) 11:00 Doxycycline PHA 04/23/25 In Process 100mg/100ml 11:00 Transfer Orders XFER 04/23/25 Transmitted 10:56 * [facility] CONS 04/23/25 Transmitted Consult Abg W/ Co-Ox RT 04/23/25 Logged 13:00 Enoxaparin Sodium PHA 04/23/25 In Process (Lovenox) 11:00 Abg W/ Co-Ox RT 04/23/25 Logged 17:00 Npo (Nothing By DIET 04/23/25 Verified Mouth) Diet Dinner Glucose Blood PHA 04/23/25 Verified (Accu-Chek Comfort 18:00 Mild Sliding Scale PHA 04/23/25 Verified Npo - Q6hr 18:00 Dextrose 50% Syringe PHA 04/23/25 Verified 15:30 Date of Service: Apr 23, 2025 Billing Provider: BELLA JONES MD Common Visit Codes: [id number] INP/OBS CARE(HIGH) MIS REYEZ RESIDENT Apr 23, 2025 15:28 BELLA JONES MD Apr 27, 2025 22:02
[2025-04-23] MEDS ORDERED: DEXTROSE (50%) 50ML SYRG IV PRN (15:30)
[2025-04-23 16:50] LABS: Base Excess 3.7 mmol/L (-2.0-3.0)
[2025-04-23] MEDS: ACCU-CHEK COMFORT CURVE STRIP VI SCH (17:34)
[2025-04-23] MEDS: InsuLIN REG 1unit/0.01ml Soln (100units/ml) SC SCH (17:34)
[2025-04-23] MEDS: NOREPINEPHRINE 8 MG/250ML KIT 250 ML IV ONE (19:24)
[2025-04-23] MEDS: NOREPINEPHRINE 8 MG/250ML KIT 250 ML IV SCH (19:27)
[2025-04-23] MEDS: VASOPRESSIN 20 UNITS in SODIUM CHL 0.9% 99 ML IV SCH (19:30)
[2025-04-23 19:36] LABS: Base Excess 4.2 mmol/L (-2.0-3.0)
[2025-04-23 19:46] LABS: INR 1.39 (0.9-1.15); Partial Thromboplastin Time 35.8 SEC (24.5-34.5); Prothrombin Time 14.3 sec (9.3-11.8)
[2025-04-23 20:01] LABS: Urine Protein, UAD Negative (Negative)
[2025-04-23 20:15] LABS: Base Excess 3.4 mmol/L (-2.0-3.0)
[2025-04-23] MEDS: ROCURONIUM 10MG/ML 10ML VIAL IV ONE ×3 (20:26→20:57)
[2025-04-23] MEDS: ETOMIDATE (2MG/ML) 20ML VIAL IV ONE ×3 (20:27→20:57)
[2025-04-23] MEDS: PROPOFOL 100 ML IV ONE (20:38)
--- NOTE | 2025-04-23 20:50 | DVH ---
EXAM: XY CHEST XRAY 1 VIEW TECHNIQUE: Single frontal chest radiograph CLINICAL HISTORY: CENTRAL LINE PLACEMENT COMPARISON: XY CHEST XRAY 1 VIEW on DOS: 04/23/25 Findings/Impression: Frontal chest radiograph demonstrates no acute osseous or superficial soft tissue abnormalities. Right-sided IJ catheter terminates to the left of the midthoracic spine. Correlate with ultrasound to assess for proper venous placement versus CT chest for more accurate localization. The trachea is midline. The cardiac silhouette and mediastinum are within normal limits. [id number] left pleural effusion with compressive atelectasis, slightly worse from prior. A moore perimposed infectious process is not excluded. No pneumothorax.
[2025-04-23] MEDS: fentaNYL Drip 2500mCg/250mlNS 250 ML IV ONE (21:00)
[2025-04-23] MEDS: PROPOFOL 100 ML IV SCH (21:00)
[2025-04-23] MEDS: fentaNYL Drip 2500mCg/250mlNS 250 ML IV SCH (21:00)
--- NOTE | 2025-04-23 21:32 | DVH ---
CHEST RADIOGRAPH Indication: INTUBATION Technique: Single frontal view of the chest was obtained Comparison: XY CHEST XRAY 1 VIEW on DOS: 04/23/25, XY CHEST XRAY 1 VIEW on DOS: 04/23/25 FINDINGS: Lines and Tubes: Endotracheal tube is in satisfactory position. Unchanged right IJ approach central v ascular catheter extending across the midline to the left of the mid mediastinum Lungs: Opacification of the left lower lung zone with obscuration of the left hemidiaphragm. Mild int erstitial prominence. Right medial lower lung zone opacity. No pneumothorax. Cardiomediastinal contours: Mild cardiomegaly Bones: No acute osseous abnormality. IMPRESSION: Unchanged right IJ approach central venous catheter extending across the midline to the left of the m id mediastinum. Recommend CT for further evaluation of tip position. Endotracheal tube is in satisfactory position. Pulmonary vascular congestion with small to moderate left-sided pleural effusion with associated atel ectasis /pneumonia; slightly improved from prior imaging. Right medial lower lung zone pneumonia/atelectasis.
[2025-04-23] MEDS: IOHEXOL 350 MG/ML 100ML IJ ONE (21:37)
--- NOTE | 2025-04-23 22:41 | DVH ---
Procedure: CT CT ANGIO CHEST CONTRAST Reason for study/Clinical History: position of the cvc Comparison Study: None Exam Date: 04/23/2025 09:56 PM Radiation Dose Information: CT Dose: CTDI volume is 21.46 mGy. Dose-length product is 820.67 mGy*cm Contrast: Type of contrast: Omnipaque 350 Contrast inject: 75 mL Contrast wasted:0 TECHNIQUE: After the uneventful administration of intravenous contrast intravenously, CT imaging was performed through the chest. Coronal and sagittal reformations were performed by the technologist. FINDINGS: Lower Neck: Visualized portions of the thyroid gland are unremarkable. Endotracheal tube in place Aorta and Vasculature: Normal caliber of thoracic aorta. There is no enlargement of the pulmonary art bonnie to suggest pulmonary artery hypertension. There are no filling defects in the right or left pulmo nary arteries or findings of a saddle embolus. Lymph Nodes: No enlarged intrathoracic lymph nodes. Mediastinum: Heart size is normal. There is no pericardial effusion. The esophagus is unremarkable. Lungs: No focal consolidation, or significant pneumothorax. Moderately large left pleural effusion w ith atelectasis in the left lung. Small right pleural effusion with atelectasis in the right base No suspicious pulmonary nodule or mass. Musculoskeletal: No acute osseous abnormality. Upper abdomen: Limited portions of the upper abdomen are unremarkable. IMPRESSION: 1. No pulmonary emboli or pulmonary artery hypertension. 2. Small right pleural effusion with atelectasis in the right lung moderately large left pleural effu harinder with atelectasis in the left mid and lower lung field. 3. Endotracheal tube in place 1.1 cm above the kate. All CT scans at this medical facility are performed using dose modulation techniques as appropriate t o a performed exam including the following: Automated exposure control was utilized; adjustment of th e MA and/or KV according to patient size; and use of iterative reconstruction technique.
[2025-04-23 22:44] LABS: Base Excess 3.9 mmol/L (-2.0-3.0)
--- NOTE | 2025-04-23 22:56 | DVH ---
EXAM: CT CT ANGIO NECK CONTRAST CLINICAL HISTORY: Position cvc TECHNIQUE: CT angiogram of the neck was performed without and with intravenous contrast. 3D MIP rec onstructed images were created and archived on the PACS system. This exam was performed according to our departmental dose optimization program. Up-to-date CT equipment and radiation dose reduction tech niques are utilized as appropriate. COMPARISON: None FINDINGS: CTA neck: Right-sided central venous catheter coursing through the right neck and enters into the right brachio cephalic artery and courses into the aortic arch. There is moderate soft tissue edema and intermediat e density soft tissue in the deep right supraclavicular neck The aortic arch vessel origins are widely patent. Mild calcified plaque in the aortic arch. Mild mixe d atherosclerotic plaque in the bilateral carotid bifurcations. and The common carotid and cervical p ortions of the internal carotid and vertebral arteries are patent without focal narrowing according t o NASCET criteria. Dominant left vertebral artery. No aneurysm, AVM, or dissection is identified. The mastoid air cells are well-aerated. There is moderate paranasal sinus mucosal thickening. There is fluid layering in the nasopharynx likely due to the presence of endotracheal tube.. Mild parasepta l emphysema. There is a large left pleural effusion. There is an endotracheal tube in place. There is multilevel cervical spondylosis. The patient is edentulous. There is moderate multilevel degenerativ e neural foraminal stenosis. IMPRESSION: 1. Mild positioned Right-sided central venous catheter coursing through the right neck entering into the right brachiocephalic artery and coursing into the aortic arch. Vascular surgery consult recommen ded. 2. Moderate soft tissue edema and intermediate density soft tissue in the deep right supraclavicular neck which could reflect blood products likely related to the malpositioned right central venous cath eter. 3. Widely patent and normal caliber carotid and vertebral arteries in the neck.
[2025-04-23] MEDS: MIDAZOLAM DRIP 50 mg/50mL 50 ML IV SCH (23:54)
[2025-04-23] MEDS: MIDAZOLAM DRIP 50 mg/50mL 50 ML IV ONE (23:55)
[2025-04-24] VITALS (113 sets, daily range): BP systolic 69–175; BP diastolic 7–128; PULSE 131–139; RESP 14–27; TEMP 96.6–98.2; O2SAT 91–100
[2025-04-24 00:20] LABS: Lactic Acid w/Reflex 2.7 mmol/L (0.4-2.0)
[2025-04-24] MEDS ORDERED: VANCOMYCIN PER PHARMACY 0 MG IV SCH (00:45)
[2025-04-24 00:56] LABS: Hemoglobin 17.9 g/dL (13.5-17.5)
[2025-04-24 00:57] LABS: Hematocrit 54.2 % (41.0-53.0); Mean Corpuscular Hemoglobin 30.2 pg (28.0-32.0); Mean Corpuscular Volume 91.4 fL (80.0-100.0); Nucleated Red Blood Cells % 0.3 %
[2025-04-24] MEDS: VANCOMYCIN 1.5GM/300ML 300 ML IV ONE ×2 (01:51→03:07)
[2025-04-24] MEDS: PIPERACILLIN-TAZO 4.5GM 100 ML IV ONE ×2 (01:53→01:56)
[2025-04-24] MEDS: NOREPINEPHRINE 8 MG/250ML KIT 250 ML IV SCH (03:53)
[2025-04-24 04:36] LABS: Hematocrit 53.2 % (41.0-53.0); Hemoglobin 17.3 g/dL (13.5-17.5); Mean Corpuscular Hemoglobin 29.8 pg (28.0-32.0); Mean Corpuscular Volume 91.8 fL (80.0-100.0); Nucleated Red Blood Cells % 0.2 %
[2025-04-24 04:56] LABS: Alkaline Phosphatase 57 U/L (46-116); Anion Gap 13 (5-15); BUN/Creatinine Ratio 17.5 (10.0-20.0); Blood Urea Nitrogen 22 mg/dL (9-23); Carbon Dioxide 28 mmol/L (20-31); Potassium 4.4 mmol/L (3.5-5.1)
[2025-04-24] MEDS: PIPERACILLIN-TAZOB 3.375GM 100 ML IV SCH (05:12)
[2025-04-24 05:14] LABS: Alanine Aminotransferase < 9 U/L (7-40); Albumin 3.1 g/dL (3.2-4.8); Bilirubin, Total 1.7 mg/dL (0.2-1.0); Calcium 8.5 mg/dL (8.7-10.4); Chloride 94 mmol/L (98-107); Glucose 171 mg/dL (74-106); Sodium 135 mmol/L (136-145); Total Protein 5.5 g/dL (5.7-8.2)
[2025-04-24 06:43] LABS: Base Excess 5.8 mmol/L (-2.0-3.0)
--- NOTE | 2025-04-24 08:14 | DVHINCON2 ---
Date of service: Apr 24, 2025 Allergies: Coded Allergies: NO KNOWN ALLERGIES (Unverified , 04/23/25) Current Medications Current Medications Medications (Trade) Dose Ordered Sig/Jose Alfredo Route PRN Reason Start Time Stop Time Status Last Admin Furosemide (Lasix Injection) 40 mg DAILY IV 04/23/25 10:00 04/23/25 11:44 Carvedilol (Coreg Tablet) 3.125 mg Q12HR PO 04/23/25 10:00 Hold 04/23/25 11:30 Methylprednisolone Sodium Succinate (Solu Medrol) 40 mg BID IV 04/23/25 11:00 04/23/25 23:19 Ceftriaxone Sodium 50 ml @ 100 mls/hr DAILY@09 IV 04/23/25 11:00 04/24/25 00:45 DC 04/23/25 11:44 Doxycycline Hyclate 100 ml @ 50 mls/hr Q12H IV 04/23/25 11:00 04/24/25 00:45 DC 04/23/25 23:19 Enoxaparin Sodium (Lovenox) 40 mg DAILY SC 04/23/25 11:00 04/23/25 11:45 Diagnostic Test (Pha) (Accu-Chek Comfort Curve T) 1 strip Q6HR 04/23/25 18:00 04/24/25 05:22 Insulin Human Regular (InsuLIN R) Q6HR SC 04/23/25 18:00 04/24/25 05:21 Dextrose 50 ml UD PRN IV Blood Sugar LESS THAN 60 04/23/25 15:30 Vasopressin 20 units/Sodium Chloride 100 ml @ 9 mls/hr Q11H7M IV 04/23/25 18:30 Norepinephrine Bitartrate 250 ml @ 3.75 mls/hr Q24H IV 04/23/25 18:30 04/24/25 03:36 DC 04/23/25 19:27 Propofol 100 ml @ 2.268 mls/ hr Q24H IV 04/23/25 20:45 04/23/25 21:00 Fentanyl Citrate 250 ml @ 2.5 mls/hr Q24H IV 04/23/25 20:45 04/23/25 21:00 Midazolam HCl 50 ml @ 1 mls/hr Q24H IV 04/23/25 23:15 04/24/25 05:15 Piperacillin Sod/ Tazobactam Sod 100 ml @ 25 mls/hr Q8HR IV 04/24/25 06:00 04/24/25 05:12 Vancomycin HCl 0 ml @ 0 mls/hr UD IV 04/24/25 00:45 UNV Norepinephrine Bitartrate 250 ml @ 1.875 mls/ hr Q24H IV 04/24/25 03:45 04/24/25 03:53 Vital Signs Vital Signs Date Time Temp Pulse Resp B/P (MAP) Pulse Ox O2 Delivery O2 Flow Rate FiO2 04/24/25 07:12 136 20 95/67 (76) 98 40 04/24/25 06:45 97.7 207.9 04/24/25 05:37 Mechanical Ventilator+ 0 Labs/Diagnostic Data Labs Test 04/24/25 06:36 04/24/25 05:18 04/24/25 03:45 04/24/25 01:45 Range/Units Blood Gas Specimen Type Arterial Blood Gas Sample Site Left radial Blood Gas Patient Temperature 37.0 Arterial Blood Date Drawn [id number] Arterial Blood pH 7.554 *H 7.350-7.450 Arterial Blood Partial Pressure CO2 31.7 L 35.0-48.0 mmHg Arterial Blood Partial Pressure O2 55.8 L 83.0-108.0 mmHg Arterial Blood HCO3 27.4 21.0-28.0 mmol/L Arterial Blood Oxygen Saturation 91.6 L 94.0-98.0 % Arterial Blood Base Excess 5.8 H -2.0-3.0 mmol/L Arterial Blood Oxyhemoglobin 90.8 L 94.0-98.0 % Arterial Blood Carboxyhemoglobin 0.7 0.5-1.5 % Arterial Blood Methemoglobin 0.2 0.0-1.5 % Darrius Test Modified Blood Gas Total Hemoglobin 18.30 *H 13.5-17.5 g/dL Blood Gas Set Respiration Rate 24.0 Blood Gas Modality Vent - ac FiO2 % 30.0 Blood Gas Tidal Volume 500.0 Blood Gas PEEP or CPAP 8.0 Blood Gas Critical Value Read Back yes Blood Gas Notified Whom junior reid md Blood Gas Notified Time [id number] Blood Gas Notified By soniya cabrera POC Glucose 202 H 70-106 mg/dl White Blood Count 10.6 4.4-10.8 10^3/uL Red Blood Count 5.80 4.5-5.90 10^6/uL Hemoglobin 17.3 13.5-17.5 g/dL Hematocrit 53.2 H 41.0-53.0 % Mean Corpuscular Volume 91.8 80.0-100.0 fL Mean Corpuscular Hemoglobin 29.8 28.0-32.0 pg Mean Corpuscular Hemoglobin Concent 32.4 32.0-36.0 g/dL Red Cell Distribution Width 14.4 H 11.8-14.3 % Platelet Count 200 140-450 10^3/uL Mean Platelet Volume 8.7 6.9-10.8 fL Neutrophils (%) (Auto) 89.8 H 37.0-80.0 % Lymphocytes (%) (Auto) 5.2 L 10.0-50.0 % Monocytes (%) (Auto) 4.9 0.0-12.0 % Eosinophils (%) (Auto) 0.0 0.0-7.0 % Basophils (%) (Auto) 0.1 0.0-2.0 % Neutrophils # (Auto) 9.5 H 1.6-8.6 10 ^3/uL Lymphocytes # (Auto) 0.5 0.4-5.4 10 ^3/uL Monocytes # (Auto) 0.5 0-1.3 10 ^3/uL Eosinophils # (Auto) 0 0-0.8 10 ^3/uL Basophils # (Auto) 0 0-0.2 10 ^3/uL Nucleated Red Blood Cells 0.2 % Sodium Level 135 L 136-145 mmol/L Potassium Level 4.4 3.5-5.1 mmol/L Chloride Level 94 L 98-107 mmol/L Carbon Dioxide Level 28 20-31 mmol/L Anion Gap 13 5-15 Blood Urea Nitrogen 22 9-23 mg/dL Creatinine 1.26 0.700-1.30 mg/dL Glomerular Filtration Rate Calc 58 >90 mL/min BUN/Creatinine Ratio 17.5 10.0-20.0 Serum Glucose 171 H 74-106 mg/dL Calcium Level 8.5 L 8.7-10.4 mg/dL Total Bilirubin 1.7 H 0.2-1.0 mg/dL Aspartate Amino Transferase (AST) 20 <34 U/L Alanine Aminotransferase (ALT) < 9 7-40 U/L Alkaline Phosphatase 57 46-116 U/L Total Protein 5.5 L 5.7-8.2 g/dL Albumin 3.1 L 3.2-4.8 g/dL Lactic Acid Level 3.8 *H 0.4-2.0 mmol/L Test 04/23/25 19:49 04/23/25 19:00 04/23/25 18:49 04/23/25 18:42 Range/Units Blood Gas EPAP 7 Blood Gas IPAP 22 Urine Color Light-yellow Yellow Urine Clarity Turbid H Clear Urine pH 5.0 5.0-9.0 Urine Specific [place] 1.006 1.001-1.035 Urine Protein Negative Negative Urine Ketones Negative Negative Urine Blood 2+ H Negative /uL Urine Nitrite Negative Negative Urine Bilirubin Negative Negative Urine Urobilinogen Normal Negative mg/dL Urine Leukocyte Esterase Negative Negative /uL Urine RBC 10 0 - 3 /hpf Urine Microscopic WBC 1 0-3 /HPF Urine Squamous Epithelial Cells Few <5 /hpf Urine Bacteria Few H None Seen /hpf Urine Mucus Few None Seen Urine Glucose Normal Normal mg/dL Prothrombin Time 14.3 H 9.3-11.8 sec Prothrombin Time INR 1.39 H 0.9-1.15 Activated Partial Thromboplast Time 35.8 H 24.5-34.5 SEC Blood Gas Spontaneous Rate 13 Test 04/23/25 07:20 04/23/25 07:04 04/23/25 04:28 04/23/25 01:29 Range/Units Influenza Type A Antigen Negative Negative Influenza Type B Antigen Negative Negative SARS-CoV-2 Antigen (Rapid) Negative NEGATIVE Erythrocyte Sedimentation Rate 1 0-20 mm/hr D-Dimer, Quantitative 1.97 H 0.0-0.49 mg/L FEU Magnesium Level 1.7 1.6-2.6 mg/dL Direct Bilirubin 0.4 H <0.3 mg/dL C-Reactive Protein High Sensitivity 0.38 <1.0 mg/dL Thyroid Stimulating Hormone (TSH) 0.85 0.55-4.78 uIU/mL Troponin I High Sensitivity 36 </=54 ng/L Hemoglobin A1c 6.7 H <5.7 % A1C Test 04/23/25 01:26 Range/Units B-Type Natriuretic Peptide 276.13 0-100 pg/mL Assessment 79 year old male intubated and sedated, last night had a central venous pressure catheter inserted at bedside, the catheter is found to be entering through the brachiocephalic (innominate) artery with its tip residing in the Aortic arch. There is mediastinal hematoma associated with this iatrogenic injury , The surgical intervention to correct this problem can not safely be accomplished through a cervical incision as distal control of the innominate artery wound be out of reach. As such there are two options for repair. One is an endovascular stent placement to span the defect in the artery by means of transfemoral arteriography done by Interventional Radiologist, the other, if IR is not available or not successful would require a median sternotomy which is not done by a vascular surgeon and usually requires a cardiac surgeon with occasional (rarely) use of cardiopulmonary bypass. The patient is currently hemodynamically stable but intervention should not be needlessly postponed as thrombosis around the tip of the catheter could result in ischemic CVA and pressure of the catheter against the wall of the Aorta could cause a dissection or erosion of the wall with catastrophic result. Plan discussed with: VANESA Womack MD Apr 24, 2025 08:14
--- NOTE | 2025-04-24 08:18 | ECG ---
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
[2025-04-24 09:09] LABS: Base Excess 7.1 mmol/L (-2.0-3.0)
[2025-04-24] MEDS: IODIXANOL 320MG/ML 100ML BTL IV ONE ×4 (10:10→11:05)
[2025-04-24] MEDS: LIDOCAINE 2%HCL (LOCAL ANESTH.) INJ 20ML MDV ONE (10:14)
--- NOTE | 2025-04-24 11:09 | DVH ---
CHEST RADIOGRAPH Indication: copd exacrebation Technique: Single frontal view of the chest was obtained Comparison: XY CHEST PORTABLE on DOS: 04/23/25, XY CHEST XRAY 1 VIEW on DOS: 04/23/25, XY CHEST XRAY 1 VIEW on DOS: 04/23/25, XY CHEST PORTABLE on DOS: 04/23/25 FINDINGS: Lines and Tubes: Endotracheal tube is in satisfactory position. Unchanged right IJ approach central v ascular catheter extending across the midline to the left of the mid mediastinum Lungs: Opacification of the left lower lung zone with obscuration of the left hemidiaphragm. Mild int erstitial prominence. Right medial lower lung zone opacity. No pneumothorax. Cardiomediastinal contours: Mild cardiomegaly Bones: No acute osseous abnormality. IMPRESSION: No interval change.
[2025-04-24 13:13] LABS: Base Excess 4.1 mmol/L (-2.0-3.0)
--- NOTE | 2025-04-24 15:43 | DVHPNRES ---
Progress Note Date Seen: Apr 24, 2025 Resident Creating Document: MIS REYEZ RESIDENT Has the PT tested + for MRSA If YES, has PT been informed?: No Medical Necessity Reason Pt with a Central, PICC or Fol: No Subjective Review of Systems Mr. Farley is a 79-year-old male who presents with a chief complaint of bilateral leg swelling. He reports a chronic history of leg swelling, previously managed with a medication obtained from [facility], the name of which he cannot recall. He admits to not taking this medication for some time. The patient is a poor historian but endorses a past medical history of diabetes mellitus (DM), hypertension (HTN), and an unspecified "heart issue." He denies any recent chest pain, shortness of breath, or dizziness. On triage, his blood pressure was markedly elevated at 180/116 mmHg with a pulse of 140 bpm. Given his history and current presentation, differential diagnoses include fluid retention possibly due to cardiac or renal insufficiency, medication noncompliance, electrolyte imbalance, and other systemic causes. Past Medical History diabetes mellitus (DM), hypertension (HTN), and an unspecified "heart issue." Past Surgical History none Family History: None (Noncontributory) Smoke: No ALCOHOL: none Drugs: None Lives: with Family Domestic Violence: Neg 04/23/25: patient was found with high oxygen requirements, respiratory acidosis, BIPAP was placed, POCUS at bedside possible reduced ejection fraction and hypokinesis, patient is having acute respiratory failure due to acute exacerbation of heart failure and COPD, antibiotics and solumedrol were started, mild hypokalemia was resolved with IV insulin 10 ui and furosemide, patient still has HR above 130, carvedilol is added, patient is MARIELENA status 04/24/25: during the night of 04/23/25, patient started to be more hypercapnic and drowsy, not responding to BIPAP, so talking with bhavani family the decision was to intubate, also patient started to be hypotensive with the need of vasopressors, central line was attempted to be placed on right yugular vein but the catheter is found to be entering through the brachiocephalic (innominate) artery with its tip residing in the Aortic arch, AngioCT scan STAT confirmed the findings, general surgery was consulted who advice endovascular stent placement to span the defect in the artery by means of transfemoral arteriography done by Interventional Radiologist, the removal of the catheter was done successfully by Dr José ARZOLA (formal radiological report pending) , right now we are going to f/u hb and bed rest, family was informed about the interventions, consent forms were signed, at the moment on fentanyl and versed drip, levophed 7 mcg, ABG after procedure ph 7.47 pco2 38 po2 69.6 hco3 27.8 ,continue monitor Objective vital signs Vital Sign Date Time Temp Pulse Resp B/P (MAP) Pulse Ox O2 Delivery O2 Flow Rate FiO2 04/24/25 14:17 134 20 104/78 (87) 100 40 04/24/25 09:45 97.7 207.9 04/24/25 08:00 Mechanical Ventilator+ 0 Total Intake and Output 04/23/25 04/23/25 04/24/25 15:00 23:00 07:00 Intake Total 100 ml 77.216 ml 800.983 ml Output Total 1900 ml 550 ml Balance -1800 ml 77.216 ml 250.983 ml medications Current Medications Medications Dose Ordered Sig/Jose Alfredo Route Start Time Stop Time Status Last Admin Dose Admin Acetaminophen 650 mg Q6HP PRN PO 04/23/25 05:00 Nitroglycerin 0.4 mg Q5MINP PRN SL 04/23/25 05:00 Furosemide 40 mg DAILY IV 04/23/25 10:00 04/24/25 12:53 40 MG Carvedilol 3.125 mg Q12HR PO 04/23/25 10:00 Hold 04/23/25 11:30 3.125 MG Methylprednisolone Sodium Succinate 40 mg BID IV 04/23/25 11:00 04/24/25 12:54 40 MG Enoxaparin Sodium 40 mg DAILY SC 04/23/25 11:00 04/23/25 11:45 40 MG Diagnostic Test (Pha) 1 strip Q6HR 04/23/25 18:00 04/24/25 12:40 1 STRIP Insulin Human Regular Q6HR SC 04/23/25 18:00 04/24/25 12:51 3 UNITS Dextrose 50 ml UD PRN IV 04/23/25 15:30 Vasopressin 20 units/Sodium Chloride 100 ml @ 9 mls/hr Q11H7M IV 04/23/25 18:30 Propofol 100 ml @ 2.268 mls/ hr Q24H IV 04/23/25 20:45 6/26/25 21:00 2.268 MLS/HR Fentanyl Citrate 250 ml @ 2.5 mls/hr Q24H IV 04/23/25 20:45 04/23/25 21:00 2.5 MLS/HR Midazolam HCl 50 ml @ 1 mls/hr Q24H IV 04/23/25 23:15 04/24/25 12:44 6 MLS/HR Piperacillin Sod/ Tazobactam Sod 100 ml @ 25 mls/hr Q8HR IV 04/24/25 06:00 04/24/25 14:18 25 MLS/HR Vancomycin HCl 0 ml @ 0 mls/hr UD IV 04/24/25 00:45 Norepinephrine Bitartrate 250 ml @ 1.875 mls/ hr Q24H IV 04/24/25 03:45 04/24/25 09:29 13.125 MLS/HR Examination General Appearance: intubated, RR 20 TV 464 PEEP 8 FIO2 40 HEENT: Atraumatic, PERRLA, EOMI, Mucous membr. moist/pink, jugular ingurgitation, AM, right catheter on the neck, mild subcutaneous edema, no pulstile hematoma, after procedure, no hematoma no bleeding Respiratory: Bilateral basal crackles Cardiovascular: Tachycardic Abdominal: Normal bowel sounds, Soft, No tenderness, No hepatospenomegaly, No masses Extremities: Edema 2+, femoral catheter with no bleeding Skin: No rashes, No breakdown, No significant lesion laboratory and microbiology Laboratory Tests 04/24/25 03:45 Test 04/24/25 03:45 Range/Units Serum Glucose 171 H 74-106 mg/dL Microbiology Date/Time Source Procedure Growth Status 04/23/25 19:00 Voided Urine Urine Culture - Preliminary Resulted Problem List/Assessment/Plan Problem List/Assessment/Plan Neurologic #Acute metabolic encephalopathy due to severe acidosis due to hypercapnia Patient is on the ventilator Cardiovascular #sp CVC removal (formal radiological report pending) Dr José ARZOLA did procedure, stated: strict bed rest, fu hb For now no aggregation or anticoagulation #Acute exacerbation of heart failure with possible reduced ejection fraction #Septic shock Furosemide iv 40 mg daily Pending ECHO Hold on GDMT due to shock will be started after stabilization #Atrial flutter? Due to recent procedure and shock, we are going to hold on amiodarone, it will started with HR more than 150 #QT prolongation #Hypertensive emergency resolved Respiratory #Septic shock #Acute respiratory failure due to COPD exacerbation and heart failure #s/p mechanical ventilation intubated, RR 20 TV 464 PEEP 8 FIO2 40 ph 7.47 pco2 38 po2 69.6 hco3 27.8 #Bilateral pleural effusions L>R at admission #Possible pneumonia gram+/ gram - #Severe respiratory acidosis Vancomycin + Zosyn Solumedrol BID xray: Moderate left and small right pleural effusions and left basilar pulmonary airspace disease Endocrinology #DM type 2, hba1c 6.7 ISS, mild Renal #Hyperkalemia, resolved IV insulin and furosemide given GI Hold on feedings for now Mild Hyperbillirubinemia Case discussed with Dr Grimm Full code Plan discussed with: Spouse, Daughter (rn), Other My Orders My Orders Orders - MIS REYEZ Procedure Category Date Status Time Npo (Nothing By DIET 04/23/25 Transmitted Mouth) Diet Dinner Glucose Blood PHA 04/23/25 In Process (Accu-Chek Comfort 18:00 Insulin R (Human) PHA 04/23/25 In Process (Insulin R) 18:00 Dextrose 50% Syringe PHA 04/23/25 In Process 15:30 * Picc Line Consult CONS 04/23/25 Transmitted 18:14 Insert Roman Catheter AV 04/23/25 In Process 18:16 Sodium Chl 0.9% PHA 04/23/25 In Process (So... W/Vasopressin 18:30 Abg W/ Co-Ox RT 04/23/25 Logged 18:40 Urine Bacterial BETSY 04/23/25 In Process Culture 19:24 Respiratory Culture BETSY 04/24/25 In Process W/ Gs 00:46 Abg W/ Co-Ox RT 04/23/25 Logged 20:00 Mrsa Screen BETSY 04/23/25 In Process 17:00 Central Line Insertion BD 04/23/25 Transmitted 19:53 Chest Xray 1 View XY 04/23/25 Resulted 20:[address] 04/23/25 Transmitted Contrast 21:15 [address] Neck Contrast CT 04/23/25 Transmitted 21:[address] 04/23/25 Resulted Contrast 21:16 Ct Angio Neck Contrast CT 04/23/25 Resulted 21:16 Respiratory Misc. RT 04/23/25 Transmitted Order 21:17 Transfer Orders XFER 04/23/25 Transmitted 22:40 Complete Blood Count LAB 04/25/25 Verified 04:00 Comprehensive LAB 04/25/25 Verified Metabolic Panel 04:00 Lactic Acid W/ Reflex LAB 04/25/25 Verified Order 04:00 Abg W/ Co-Ox RT 04/25/25 Logged 04:00 Abg W/ Co-Ox RT 04/24/25 Logged 06:00 Chest Xray 1 View XY 04/24/25 Resulted 09:40 C Arm Fluoroscopy Up XY 04/24/25 Taken To 60min 12:12 Abg W/ Co-Ox RT 04/24/25 Logged 12:56 Date of Service: Apr 24, 2025 Billing Provider: BELLA GRIMM MD Common Visit Codes: [id number] INP/OBS CARE(HIGH) MIS REYEZ RESIDENT Apr 24, 2025 15:43 BELLA GRIMM MD Apr 27, 2025 22:15
--- NOTE | 2025-04-24 15:48 | DVHPN2 ---
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 Objective vital signs Vital Sign Date Time Temp Pulse Resp B/P (MAP) Pulse Ox O2 Delivery O2 Flow Rate FiO2 04/24/25 15:35 134 20 104/7 (39) 100 40 04/24/25 09:45 97.7 207.9 04/24/25 08:00 Mechanical Ventilator+ 0 Total Intake and Output 04/23/25 04/23/25 04/24/25 15:00 23:00 07:00 Intake Total 100 ml 77.216 ml 800.983 ml Output Total 1900 ml 550 ml Balance -1800 ml 77.216 ml 250.983 ml medications Current Medications Medications Dose Ordered Sig/Jose Alfredo Route Start Time Stop Time Status Last Admin Dose Admin Acetaminophen 650 mg Q6HP PRN PO 04/23/25 05:00 Nitroglycerin 0.4 mg Q5MINP PRN SL 04/23/25 05:00 Furosemide 40 mg DAILY IV 04/23/25 10:00 04/24/25 12:53 40 MG Carvedilol 3.125 mg Q12HR PO 04/23/25 10:00 Hold 04/23/25 11:30 3.125 MG Methylprednisolone Sodium Succinate 40 mg BID IV 04/23/25 11:00 04/24/25 12:54 40 MG Diagnostic Test (Pha) 1 strip Q6HR 04/23/25 18:00 04/24/25 12:40 1 STRIP Insulin Human Regular Q6HR SC 04/23/25 18:00 04/24/25 12:51 3 UNITS Dextrose 50 ml UD PRN IV 04/23/25 15:30 Vasopressin 20 units/Sodium Chloride 100 ml @ 9 mls/hr Q11H7M IV 04/23/25 18:30 Propofol 100 ml @ 2.268 mls/ hr Q24H IV 04/23/25 20:45 04/23/25 21:00 2.268 MLS/HR Fentanyl Citrate 250 ml @ 2.5 mls/hr Q24H IV 04/23/25 20:45 04/23/25 21:00 2.5 MLS/HR Midazolam HCl 50 ml @ 1 mls/hr Q24H IV 04/23/25 23:15 04/24/25 12:44 6 MLS/HR Piperacillin Sod/ Tazobactam Sod 100 ml @ 25 mls/hr Q8HR IV 04/24/25 06:00 04/24/25 14:18 25 MLS/HR Vancomycin HCl 0 ml @ 0 mls/hr UD IV 04/24/25 00:45 Norepinephrine Bitartrate 250 ml @ 1.875 mls/ hr Q24H IV 04/24/25 03:45 04/24/25 09:29 13.125 MLS/HR Examination: GENERAL:Abnormal, LUNGS:Abnormal (Mechanically ventilated, Fio2 40%, PEEP 8.0), CVS:Abnormal (Sinus tachycardia), NEURO:Abnormal (Chemically sedated) laboratory and microbiology Laboratory Tests 04/24/25 03:45 Test 04/24/25 03:45 Range/Units Serum Glucose 171 H 74-106 mg/dL Problem List/Assessment/Plan Problem List/Assessment/Plan Rule out structural heart disease Hypertensive urgency Supraventricular tachycardia, now sinus tachycardia Prolonged QTc interval Acute hypoxic respiratory failure Bilateral pleural effusions Malpositioned central line, status post balloon angioplasty with assisted removal of right subclavian artery catheter Type 2 diabetes mellitus Hyperkalemia Obesity Plan/Recommendation (Dr. Mercado): * Transthoracic echocardiogram to evaluate cardiac function * Vasopressors for hemodynamic support * Unable to continue guideline directed medical therapy for CHF given vasopressor support * Strict intake and output, daily weights, maintain fluid restriction * Diuresis as tolerated * Avoid medications that prolong QTc interval * Cardiac surveillance * Repeat EKG in AM 04/25/25 Thank you for allowing us to care for this patient. Please call with any questions or concerns. Critical care time spent: 35 minutes. This medical document was created using an electronic medical record system with voice recognition software and computerized dictation system. Although this document has been carefully reviewed, there might still be some phonetic and typographical errors. Occasional wrong-word or ``sound-alike substitutions may have occurred due to the inherent limitations of voice recognition software. These areas are purely typographical due to imperfections of the software programs and do not reflect any compromise in the patient's medical care. Please read the chart carefully and recognize, using context, where these substitutions have occurred. Plan discussed with: Spouse, Other (Bedside RN) Date of Service: Apr 24, 2025 Billing Provider: BREE DEVLIN Common Visit Codes: [id number] CARE 30-74 MIN BREE DEVLIN [facility] Apr 24, 2025 15:48
[2025-04-24 16:59] LABS: Hematocrit 52.8 % (41.0-53.0); Hemoglobin 17.5 g/dL (13.5-17.5)
[2025-04-24] MEDS: MAGNESIUM SULFATE 1GM/100ML 100 ML IV SCH (18:34)
--- NOTE | 2025-04-24 19:31 | DVHSR ---
APPROVED REPORT EXAM: Two-dimensional and M-mode echocardiogram with Doppler and color Doppler. Blood Pressure: 124/85 mmHg INDICATION Structural heart disease, LVEF DIMENSIONS LVDd3.9 (3.8-5.7cm)LA (2D)3.7 (1.9-4.0cm)Aortic Root3.1 (2.0-3.7cm) LVDs3.5 (2.5-4.0cm)LA (MM) (1.9-4.0cm)Aortic Cusp Exc1.6 (1.5-2.0cm) EF (%) 25.0 (55-70%)Rt. Atrium4.2 (1.9-4.0cm)Asc. Aorta cm IVSd1.2 (0.7-1.1cm)RV (D) (1.8-2.4cm) PWd1.3 (0.7-1.1cm) Mitral Valve MitralMitral Stenosis E wave0.92m/sMV Mean GR.mmHg E/A ratio0.02D MVAcm2 Aortic Valve Aortic ValveAortic Stenosis V10.46m/Puneet Mean GR.mmHg V20.75m/Puneet Peak GR.2mmHg LVOT Diameter2.0 (1.8-2.4cm)Doppler AVA1.93cm2 Other Information Quality : Technically LimitedRhythm : Technically limited study due to body habitus and on vent Conclusion DILATED ALL CARDIAC CHAMBERS LV EF IS 25% SEVERE LV AND RV GLOBAL HYPOKINESIS NORMAL VALVES NO EFFUSION
--- NOTE | 2025-04-24 19:52 | DVHNC2 ---
TATO SIMEON RESIDENT 04/24/251951: Procedure - Endotracheal Intubation Procedure Note INDICATION: ACUTE HYPERCAPNIC RESPIRATORY FAILURE DATE: 04/23/2025 PROCEDURE POCKET AND PULLEY MACHINE OPERATOR: BLANCO HERRMANN ATTENDING PHYSICIAN: DANG FINK MD CONSENT: During the informed consent discussion regarding the procedure, I explained the following to the patients : Nature of the procedure and who will perform the procedure Necessity for procedure and the possible benefits. Risks and complications (most common and serious). Problems that might occur during the recuperation. PROCEDURE SUMMARY: A time out was performed. My hands were washed immediately prior to the procedure. I wore a surgical cap, mask with protective eyewear, gown and gloves throughout the procedure. The patient was placed on a teletypesetter monitor including continuous pulse oximetry. Rapid Sequence Intubation was conducted. The patient received 25 mg mg of etomidate for induction and 75 mg of rocuronium for adequate paralysis. Cricoid pressure was maintained from time induction agent was given to time of cuff balloon inflation. Using a GlideScope and a size 8 endotracheal tube with stylet, the patient was intubated on the first attempt. The stylet was removed and cuff balloon was inflated. Appropriate endotracheal tube position was confirmed by direct visualization of vocal cord passage, fogging of the tube, CO2 colormetric indicator and symmetric breath sounds. The tube was secured at 24 cm at the lips. Post intubation chest x-ray shows proper position of ETT and no obvious complication. DANG FINK MD 04/27/2531: Procedure - Addendum by Dr. Anahi Haines: I was present in a supervisory role for this procedure. TATO SIMEON Apr 24, 2025 19:52 DANG FINK MD Apr 27, 2025 05:31
--- NOTE | 2025-04-24 20:02 | DVHNC2 ---
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 Indication: Hypotension Room prepared for procedure: Yes [employer] performed hand hygien: Yes Maximal sterile barrier precau: Mask/Eye shield, Sterile gown, Cap, Sterlie gloves, Large sterlie drape Skin Preparation: Chlorhexidine gluconate Skin preparation completely dr: Yes Insertion site: Right, Internal jugular Central line catheter type: Dyx-[id number] dialysis Number of lumens: 3 Central line exchanged over a: Yes Antiseptic ointment applied to: Yes Post Assessment: Chest X-Ray Informed consent obtained: Yes Risks/benefits/alt described: Yes Notes Procedure done 7: 30 pm 04/23/25 My hands were washed immediately prior to the procedure. I wore a surgical cap, mask with protective eyewear, full gown and sterile gloves throughout the procedure. The patient was placed in Trendelenburg position. The Right neck was prepped using chlorhexidine scrub and draped in sterile fashion using a three quarter sheet drape and sterile towels. Skin preparation was allowed to dry prior to skin puncture. Anatomic landmarks were identified. Anesthesia was achieved over the vein using 1% lidocaine. Using real-time ultrasound, with sterile probe cover and sterile gel, the introducer needle was inserted into the vein under direct ultrasound visualization. Venous blood was withdrawn. The syringe was removed and a guidewire was advanced into the introducer needle. A small incision was made at the skin surface with a scalpel and the introducer needle was exchanged for a dilator over the guidewire. After appropriate dilation was obtained, the dilator was exchanged over the wire for a central venous catheter. The wire was removed and the catheter was sutured in place. A biopatch was placed at the insertion site. A sterile op-site was placed over the catheter and biopatch. The patient tolerated the procedure without any hemodynamic compromise. At time of procedure completion, all ports aspirated and flushed properly. Post-procedure chest x-ray : Right-sided IJ catheter terminates to the left of the midthoracic spine, ABG from the port was withdrawn, showing po2 84, Angio CT scan neck and chest was ordered STAT: showing malpositioned Right-sided central venous catheter coursing through the right neck entering into the right brachiocephalic artery and coursing into the aortic arch. Moderate soft tissue edema and intermediate density soft tissue in the deep right supraclavicular neck which could reflect blood products likely related to the malpositioned right central venous catheter. Findings were discussed with the surgeon inspector precision. Addendum by Gail Haines MD, ED attending: I was present in a supervisory role for this procedure. Dr. Serra advised me of the post procedure Xray and ABG results, which I reviewed. I requested STAT CTA neck and chest, which Dr. Serra ordered. We reviewed the images and radiology report. Dr. Serra discussed the findings with the radiologist. Vascular surgery was not available inspector precision at that time. I contacted Dr. Coronel, who recommended we keep the malpositioned line in place until he was able to personally evaluate the patient. I re-evaluated the patient who appeared stable with regard to the malpositioned line, but would require another central venous catheter, which I inserted. Please see my procedure note for details. Date of Service: Apr 23, 2025 Billing Provider: DANG FINK MD Common Visit Codes: PROCEDURE ONLY Procedure Codes: [id number] NON-TUNNEL CV CATH MIS REYEZ RESIDENT Apr 24, 2025 20:02 DANG FINK MD Apr 25, 2025 18:54
[2025-04-24 22:50] LABS: Hematocrit 52.4 % (41.0-53.0); Hemoglobin 17.3 g/dL (13.5-17.5)
[2025-04-25] VITALS (157 sets, daily range): BP systolic 70–188; BP diastolic 41–141; PULSE 65–139; RESP 17–21; TEMP 97–98.6; O2SAT 98–100
[2025-04-25 04:37] LABS: Hematocrit 52.0 % (41.0-53.0); Hemoglobin 17.4 g/dL (13.5-17.5); Mean Corpuscular Hemoglobin 30.2 pg (28.0-32.0); Mean Corpuscular Volume 90.2 fL (80.0-100.0); Nucleated Red Blood Cells % 0.2 %
[2025-04-25 04:44] LABS: INR 1.44 (0.9-1.15); Partial Thromboplastin Time 32.0 SEC (24.5-34.5); Prothrombin Time 14.7 sec (9.3-11.8)
[2025-04-25 04:51] LABS: Alkaline Phosphatase 54 U/L (46-116); Anion Gap 11 (5-15); BUN/Creatinine Ratio 20.0 (10.0-20.0); Bilirubin, Total 1.1 mg/dL (0.2-1.0); Carbon Dioxide 30 mmol/L (20-31); Magnesium 2.5 mg/dL (1.6-2.6); Potassium 4.2 mmol/L (3.5-5.1); Sodium 138 mmol/L (136-145); Total Protein 5.7 g/dL (5.7-8.2)
[2025-04-25 04:52] LABS: Alanine Aminotransferase < 9 U/L (7-40); Albumin 3.2 g/dL (3.2-4.8); Blood Urea Nitrogen 29 mg/dL (9-23); Calcium 8.5 mg/dL (8.7-10.4); Chloride 97 mmol/L (98-107); Glucose 157 mg/dL (74-106)
[2025-04-25 04:59] LABS: Lactic Acid w/Reflex 2.6 mmol/L (0.4-2.0)
--- NOTE | 2025-04-25 05:50 | DVH ---
C-ARM FLUOROSCOPY: PROCEDURE: Angiogram FLUOROSCOPY TIME: 1 DAP: 1 mgy FINDINGS: Spot intraoperative C arm radiographs demonstrating angiogram , catheter removal and stent placement. IMPRESSION: Please refer to surgical report for detailed findings.
--- NOTE | 2025-04-25 05:52 | DVH ---
CHEST RADIOGRAPH Indication: EVALUATION POST CVC REMOVAL INNOMINATE ARTERY Technique: Single frontal view of the chest was obtained COMPARISON: XY CHEST XRAY 1 VIEW on DOS: 04/24/25, XY CHEST PORTABLE on DOS: 04/23/25, XY CHEST XRAY 1 VIEW on DOS: 04/23/25, XY CHEST XRAY 1 VIEW on DOS: 04/23/25 FINDINGS: Lines and Tubes: Endotracheal tube in satisfactory position. Lungs: Bilateral airspace disease. Pleura: No effusion. No pneumothorax. Cardiomediastinal contours: Unremarkable Bones: Unremarkable IMPRESSION: Endotracheal tube in satisfactory position. Mild pulmonary vascular congestion Interval removal of right sided catheter.
[2025-04-25 06:25] LABS: Base Excess 4.2 mmol/L (-2.0-3.0)
--- NOTE | 2025-04-25 07:24 | DVHPNRES ---
Progress Note Has the PT tested + for MRSA If YES, has PT been informed?: No Medical Necessity Reason Pt with a Central, PICC or Fol: No Objective vital signs Vital Sign Date Time Temp Pulse Resp B/P (MAP) Pulse Ox O2 Delivery O2 Flow Rate FiO2 04/25/25 07:00 98.1 137 20 106/72 (83) 100 208.6 04/25/25 05:35 40 04/25/25 05:35 Mechanical Ventilator+ 0 Total Intake and Output 04/24/25 04/24/25 04/25/25 15:00 23:00 07:00 Intake Total 236.73 ml 294.75 ml 269.00 ml Output Total 900 ml 400 ml Balance 236.73 ml -605.25 ml -131.00 ml medications Current Medications Medications Dose Ordered Sig/Jose Alfredo Route Start Time Stop Time Status Last Admin Dose Admin Acetaminophen 650 mg Q6HP PRN PO 04/23/25 05:00 Nitroglycerin 0.4 mg Q5MINP PRN SL 04/23/25 05:00 Furosemide 40 mg DAILY IV 04/23/25 10:00 04/24/25 12:53 40 MG Carvedilol 3.125 mg Q12HR PO 04/23/25 10:00 Hold 04/23/25 11:30 3.125 MG Methylprednisolone Sodium Succinate 40 mg BID IV 04/23/25 11:00 04/24/25 21:21 40 MG Diagnostic Test (Pha) 1 strip Q6HR 04/23/25 18:00 04/25/25 06:00 1 STRIP Insulin Human Regular Q6HR SC 04/23/25 18:00 04/25/25 06:00 2 UNITS Dextrose 50 ml UD PRN IV 04/23/25 15:30 Vasopressin 20 units/Sodium Chloride 100 ml @ 9 mls/hr Q11H7M IV 04/23/25 18:30 Propofol 100 ml @ 2.268 mls/ hr Q24H IV 04/23/25 20:45 04/23/25 21:00 2.268 MLS/HR Fentanyl Citrate 250 ml @ 2.5 mls/hr Q24H IV 04/23/25 20:45 04/24/25 18:21 10 MLS/HR Midazolam HCl 50 ml @ 1 mls/hr Q24H IV 04/23/25 23:15 04/25/25 03:20 7 MLS/HR Piperacillin Sod/ Tazobactam Sod 100 ml @ 25 mls/hr Q8HR IV 04/24/25 06:00 04/25/25 05:09 25 MLS/HR Vancomycin HCl 0 ml @ 0 mls/hr UD IV 04/24/25 00:45 Norepinephrine Bitartrate 250 ml @ 1.875 mls/ hr Q24H IV 04/24/25 03:45 04/25/25 05:14 9.375 MLS/HR laboratory and microbiology Laboratory Tests 04/25/25 03:15 Test 04/25/25 03:15 Range/Units Serum Glucose 157 H 74-106 mg/dL Microbiology Date/Time Source Procedure Growth Status 04/24/25 01:45 Blood Blood Culture - Preliminary NO GROWTH AFTER 24 HOURS OF INCUBATION. Resulted 04/23/25 19:00 Voided Urine Urine Culture - Preliminary Resulted 04/23/25 17:00 Nose MRSA Screen - Final Complete Problem List/Assessment/Plan Problem List/Assessment/Plan Neurologic #Acute metabolic encephalopathy due to severe acidosis due to hypercapnia Patient is on the ventilator Cardiovascular #sp CVC removal and braquicephalic stent Dr Kumar IR did procedure, stated: strict bed rest, fu hb For now no aggregation or anticoagulation #Acute exacerbation of heart failure with possible reduced ejection fraction #Septic shock Furosemide iv 40 mg daily Pending ECHO Hold on GDMT due to shock will be started after stabilization #Atrial flutter? Due to recent procedure and shock, we are going to hold on amiodarone, it will started with HR more than 150 #QT prolongation #Hypertensive emergency resolved Respiratory #Septic shock #Acute respiratory failure due to COPD exacerbation and heart failure #s/p mechanical ventilation intubated, RR 20 TV 464 PEEP 8 FIO2 40 ph 7.47 pco2 38 po2 69.6 hco3 27.8 #Bilateral pleural effusions L>R at admission #Possible pneumonia gram+/ gram - #Severe respiratory acidosis Vancomycin + Zosyn Solumedrol BID xray: Moderate left and small right pleural effusions and left basilar pulmonary airspace disease Endocrinology #DM type 2, hba1c 6.7 ISS, mild Renal #Hyperkalemia, resolved IV insulin and furosemide given GI Hold on feedings for now Mild Hyperbillirubinemia Case discussed with Dr Grimm Full code My Orders My Orders Orders - MARTINEZ R,MIS RESIDENT Procedure Category Date Status Time C Arm Fluoroscopy Up XY 04/24/25 Resulted To 60min 12:12 Abg W/ Co-Ox RT 04/24/25 Logged 12:56 MIS REYEZ RESIDENT Apr 25, 2025 07:24
[2025-04-25] MEDS: DIGOXIN (250MCG/ML) 2 ML AMPULE IV ONE (10:22)
[2025-04-25] MEDS: PHENYLEPHRINE IV 250 ML IV SCH ×2 (10:30→19:30)
--- NOTE | 2025-04-25 11:07 | ECG ---
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
--- NOTE | 2025-04-25 11:44 | DVHPN2 ---
Consult Progress Note Subjective Patient reports: Other (Intubated and sedated) Objective vital signs Vital Sign Date Time Temp Pulse Resp B/P (MAP) Pulse Ox O2 Delivery O2 Flow Rate FiO2 04/25/25 11:13 132 20 148/124 (132) 100 30 04/25/25 07:00 98.1 208.6 04/25/25 05:35 Mechanical Ventilator+ 0 Total Intake and Output 04/24/25 04/24/25 04/25/25 15:00 23:00 07:00 Intake Total 236.73 ml 294.75 ml 318.50 ml Output Total 900 ml 400 ml Balance 236.73 ml -605.25 ml -81.50 ml medications Current Medications Medications Dose Ordered Sig/Jose Alfredo Route Start Time Stop Time Status Last Admin Dose Admin Acetaminophen 650 mg Q6HP PRN PO 04/23/25 05:00 Nitroglycerin 0.4 mg Q5MINP PRN SL 04/23/25 05:00 Furosemide 40 mg DAILY IV 04/23/25 10:00 04/25/25 09:45 40 MG Carvedilol 3.125 mg Q12HR PO 04/23/25 10:00 Hold 04/23/25 11:30 3.125 MG Methylprednisolone Sodium Succinate 40 mg BID IV 04/23/25 11:00 04/25/25 09:44 40 MG Diagnostic Test (Pha) 1 strip Q6HR 04/23/25 18:00 04/25/25 06:00 1 STRIP Insulin Human Regular Q6HR SC 04/23/25 18:00 04/25/25 06:00 2 UNITS Dextrose 50 ml UD PRN IV 04/23/25 15:30 Vasopressin 20 units/Sodium Chloride 100 ml @ 9 mls/hr Q11H7M IV 04/23/25 18:30 Propofol 100 ml @ 2.268 mls/ hr Q24H IV 04/23/25 20:45 04/23/25 21:00 2.268 MLS/HR Fentanyl Citrate 250 ml @ 2.5 mls/hr Q24H IV 04/23/25 20:45 04/24/25 18:21 10 MLS/HR Midazolam HCl 50 ml @ 1 mls/hr Q24H IV 04/23/25 23:15 04/25/25 10:58 7 MLS/HR Piperacillin Sod/ Tazobactam Sod 100 ml @ 25 mls/hr Q8HR IV 04/24/25 06:00 04/25/25 05:09 25 MLS/HR Vancomycin HCl 0 ml @ 0 mls/hr UD IV 04/24/25 00:45 Norepinephrine Bitartrate 250 ml @ 1.875 mls/ hr Q24H IV 04/24/25 03:45 04/25/25 05:14 9.375 MLS/HR Phenylephrine HCl 250 ml @ 30 mls/hr Q8H20M IV 04/25/25 09:45 04/25/25 10:40 30 MLS/HR Digoxin 0.125 mg DAILY PO 04/26/25 10:00 Examination: LUNGS:Abnormal (Intubated, FiO2 30%.), CVS:Abnormal (Telemetry reviewed consistent with two-to-one atrial flutter with RVR at 136 beats per minute.), NEURO:Abnormal (sedated) laboratory and microbiology Laboratory Tests 04/25/25 03:15 Test 04/25/25 03:15 Range/Units Serum Glucose 157 H 74-106 mg/dL Problem List/Assessment/Plan Problem List/Assessment/Plan Problem List/Assessment/Plan Rule out structural heart disease Hypertensive urgency Supraventricular tachycardia, now sinus tachycardia Prolonged QTc interval Acute hypoxic respiratory failure Bilateral pleural effusions Malpositioned central line, status post balloon angioplasty with assisted removal of right subclavian artery catheter Type 2 diabetes mellitus Hyperkalemia Obesity. New onset atrial flutter 2-1 AV conduction with RVR Dilated cardiomyopathy (EF 25%) Shock, cardiogenic versus septic Plan/Recommendation (Dr. Mercado): * Transthoracic echocardiogram with EF 25%, dilated cardiomyopathy * Vasopressors for hemodynamic support * Unable to continue guideline directed medical therapy for CHF given vasopressor support * Strict intake and output, daily weights, maintain fluid restriction * Diuresis as tolerated * Avoid medications that prolong QTc interval * Cardiac surveillance * Repeat EKG in AM 04/25/25 * Digoxin 500 mcg IV x1 repeat in 1 hour. Continue daily. * Sinus switch norepinephrine to Claude-Synephrine due to elevated heart rate. * Plan to initiate on anticoagulation therapy with heparin per low-dose protocol for stroke prophylaxis, CHADS2 Vasc score 5. Currently intubated in ICU, echo reviewed showing dilated cardiomyopathy EF 25%. Bedside telemetry and EKG reviewed showing patient to be in two-to-one atrial flutter with RVR. Initiated on digoxin. Spoke with Interventional radiology due to recent line removal with arterial angioplasty, low risk for bleeding, greater than 24 hours , Hemoglobin stable, okay to initiate on anticoagulation therapy. Continue close monitoring for bleeding. Thank you for allowing us to care for this patient. Please call with any questions or concerns. Critical care time spent: 39 minutes. This medical document was created using an electronic medical record system with voice recognition software and computerized dictation system. Although this document has been carefully reviewed, there might still be some phonetic and typographical errors. Occasional wrong-word or ``sound-alike substitutions may have occurred due to the inherent limitations of voice recognition software. These areas are purely typographical due to imperfections of the software programs and do not reflect any compromise in the patient's medical care. Please read the chart carefully and recognize, using context, where these substitutions have occurred. Plan discussed with: Other (Bedside RN Vicenta) Dietary Evaluation Review Comments: Nutrition Recommendation: 1. TF Vital AF 1.2 Luis Enrique @ 60 ml/hr. start @ 20ml/hr, increase 10ml/hr Q4H until goal is reached. TF at goal volume provides 100% energy & protein needs - 1728 kcal, 108 gm protein, 1168 ml free water 2. Water flush 140ml Q6H if allowed 3. TPN if NPO> 7 days Expected Outcomes/Goals: To meet >75% estimated needs Fu 2-3 days Date of Service: Apr 25, 2025 Billing Provider: DINORAH CHU Common Visit Codes: [id number] INP/OBS CARE(HIGH), [id number] CARE 30-74 MIN DINORAH CHU Apr 25, 2025 11:44
[2025-04-25] MEDS: VANCOMYCIN 500mg/100mL 100 ML IV ONE (12:28)
--- NOTE | 2025-04-25 12:41 | CONS ---
Pharmacy Clinical Information: NEW HEPARIN DRIP BASELINE aPTT OBTAINED. NO BOLUS. START RATE 9 ML/HR NEXT aPTT SCHEDULED FOR 04/25 @1900 COMMUNICATED WITH JOHNNY GATICA PHARMACIST Apr 25, 2025 12:41
[2025-04-25] MEDS: HEPARIN DRIP/D5W 100UNITS/ML 250 ML IV SCH ×2 (13:01→21:00)
[2025-04-25 19:52] LABS: INR 1.47 (0.9-1.15); Prothrombin Time 15.0 sec (9.3-11.8)
[2025-04-25 19:57] LABS: Partial Thromboplastin Time 114.8 SEC (24.5-34.5)
--- NOTE | 2025-04-25 23:53 | DVHINCON2 ---
Date of service: Apr 25, [address] Fung Reason for Consultation Acute hypoxic respiratory failure, COPD exacerbation and pleural effusions History of Present Illness A 79-year-old man with past medical history of diabetes mellitus, hypertension, and an unspecified "heart issue" who presented to ED on 04/23/25 with a chief complaint of bilateral leg swelling. He reported chronic history of leg swelling, previously managed with a medication obtained from [place] - admitted to not taking this medication for some time. Patient denied any recent chest pain, shortness of breath, or dizziness. On triage, his blood pressure was markedly elevated at 180/116 mmHg with a pulse of 140 bpm. Patient was admitted for further care, and pulmonary consultation is requested for evaluation and management of acute hypoxic respiratory failure, COPD exacerbation and pleural effusions. Review of Systems: Unable to obtain d/t intubated status. Past Medical History: Diabetes mellitus, hypertension, and an unspecified "heart issue." Past Surgical History: None Medications: Reviewed. Allergies: No known drug allergies. Family History: No family history of premature CAD. No family history of lung disorders. Social History: Nonsmoker. No alcohol or illicit drug use. Allergies: Coded Allergies: NO KNOWN ALLERGIES (Unverified , 04/23/25) Current Medications Current Medications Medications (Trade) Dose Ordered Sig/Jose Alfredo Route PRN Reason Start Time Stop Time Status Last Admin Phenylephrine HCl 250 ml @ 30 mls/hr Q8H20M IV 04/25/25 09:45 04/25/25 19:19 DC 04/25/25 10:40 Digoxin (Lanoxin Tablet) 0.125 mg DAILY PO 04/26/25 10:00 Heparin Sodium/ Dextrose 250 ml @ 9 mls/hr Q24H IV 04/25/25 13:00 04/25/25 20:03 DC 04/25/25 13:01 Phenylephrine HCl 250 ml @ 30 mls/hr Q8H20M IV 04/25/25 19:30 04/25/25 23:35 Heparin Sodium/ Dextrose 250 ml @ 6 mls/hr Q24H IV 04/25/25 21:00 Vital Signs Vital Signs Date Time Temp Pulse Resp B/P (MAP) Pulse Ox O2 Delivery O2 Flow Rate FiO2 04/25/25 23:35 142/77 04/25/25 22:00 30 04/25/25 22:00 82 20 100 04/25/25 22:00 Mechanical Ventilator+ 0 04/25/25 21:15 97.5 207.5 Physical Exam Gen.: Patient lying in bed in medical ICU. Sedated, intubated on mechanical ventilator. Head: Normocephalic, atraumatic. Eyes: PERRLA. Ears: Normal external anatomy. Throat: Endotracheal tube and orogastric tube in place. Neck: Supple, trachea midline. Chest: Transmitted breath sounds bilaterally. Decreased air entry bilaterally. No wheezing. Bibasilar crackles. Cardiovascular: Positive S1, positive S2. Regular rate and rhythm. Abdomen: Positive bowel sounds in all 4 quadrants. Soft, nontender, nondistended. : Roman in place. Normal external genitalia. Rectal: Deferred. Skin: Warm, dry. Intact. Extremities: 2+ radial pulses bilaterally. No lower extremity edema. Neuro: Sedated. Labs/Diagnostic Data Labs Test 04/25/25 23:39 04/25/25 19:00 04/25/25 08:15 04/25/25 06:05 Range/Units POC Glucose 156 H 70-106 mg/dl Prothrombin Time 15.0 H 9.3-11.8 sec Prothrombin Time INR 1.47 H 0.9-1.15 Activated Partial Thromboplast Time 114.8 *H 24.5-34.5 SEC Lactic Acid Level 3.0 *H 0.4-2.0 mmol/L Blood Gas Specimen Type Arterial Blood Gas Sample Site Left radial Blood Gas Patient Temperature 37.0 Arterial Blood Date Drawn [id number] Arterial Blood pH 7.491 H 7.350-7.450 Arterial Blood Partial Pressure CO2 36.7 35.0-48.0 mmHg Arterial Blood Partial Pressure O2 72.9 L 83.0-108.0 mmHg Arterial Blood HCO3 27.4 21.0-28.0 mmol/L Arterial Blood Oxygen Saturation 94.2 94.0-98.0 % Arterial Blood Base Excess 4.2 H -2.0-3.0 mmol/L Arterial Blood Oxyhemoglobin 93.7 L 94.0-98.0 % Arterial Blood Carboxyhemoglobin 0.3 L 0.5-1.5 % Arterial Blood Methemoglobin 0.2 0.0-1.5 % Darrius Test Modified Blood Gas Total Hemoglobin 18.20 *H 13.5-17.5 g/dL Blood Gas Set Respiration Rate 20.0 Blood Gas Modality Vent - ac FiO2 % 30.0 Blood Gas Tidal Volume 450.0 Blood Gas PEEP or CPAP 8.0 Blood Gas Critical Value Read Back yes Blood Gas Notified Whom kb fung md Blood Gas Notified Time [id number] Blood Gas Notified By director medicaid t deborah Test 04/25/25 03:15 04/23/25 19:49 04/23/25 19:00 04/23/25 18:42 Range/Units White Blood Count 10.9 H 4.4-10.8 10^3/uL Red Blood Count 5.77 4.5-5.90 10^6/uL Hemoglobin 17.4 13.5-17.5 g/dL Hematocrit 52.0 41.0-53.0 % Mean Corpuscular Volume 90.2 80.0-100.0 fL Mean Corpuscular Hemoglobin 30.2 28.0-32.0 pg Mean Corpuscular Hemoglobin Concent 33.5 32.0-36.0 g/dL Red Cell Distribution Width 14.5 H 11.8-14.3 % Platelet Count 188 140-450 10^3/uL Mean Platelet Volume 8.7 6.9-10.8 fL Neutrophils (%) (Auto) 89.0 H 37.0-80.0 % Lymphocytes (%) (Auto) 5.3 L 10.0-50.0 % Monocytes (%) (Auto) 5.7 0.0-12.0 % Eosinophils (%) (Auto) 0.0 0.0-7.0 % Basophils (%) (Auto) 0.0 0.0-2.0 % Neutrophils # (Auto) 9.7 H 1.6-8.6 10 ^3/uL Lymphocytes # (Auto) 0.6 0.4-5.4 10 ^3/uL Monocytes # (Auto) 0.6 0-1.3 10 ^3/uL Eosinophils # (Auto) 0 0-0.8 10 ^3/uL Basophils # (Auto) 0 0-0.2 10 ^3/uL Nucleated Red Blood Cells 0.2 % Sodium Level 138 136-145 mmol/L Potassium Level 4.2 3.5-5.1 mmol/L Chloride Level 97 L 98-107 mmol/L Carbon Dioxide Level 30 20-31 mmol/L Anion Gap 11 5-15 Blood Urea Nitrogen 29 H 9-23 mg/dL Creatinine 1.45 H 0.700-1.30 mg/dL Glomerular Filtration Rate Calc 49 >90 mL/min BUN/Creatinine Ratio 20.0 10.0-20.0 Serum Glucose 157 H 74-106 mg/dL Calcium Level 8.5 L 8.7-10.4 mg/dL Magnesium Level 2.5 1.6-2.6 mg/dL Total Bilirubin 1.1 H 0.2-1.0 mg/dL Aspartate Amino Transferase (AST) 19 <34 U/L Alanine Aminotransferase (ALT) < 9 7-40 U/L Alkaline Phosphatase 54 46-116 U/L Total Protein 5.7 5.7-8.2 g/dL Albumin 3.2 3.2-4.8 g/dL Random Vancomycin Level 10.8 H 5-10 ug/mL Blood Gas EPAP 7 Blood Gas IPAP 22 Urine Color Light-yellow Yellow Urine Clarity Turbid H Clear Urine pH 5.0 5.0-9.0 Urine Specific [place] 1.006 1.001-1.035 Urine Protein Negative Negative Urine Ketones Negative Negative Urine Blood 2+ H Negative /uL Urine Nitrite Negative Negative Urine Bilirubin Negative Negative Urine Urobilinogen Normal Negative mg/dL Urine Leukocyte Esterase Negative Negative /uL Urine RBC 10 0 - 3 /hpf Urine Microscopic WBC 1 0-3 /HPF Urine Squamous Epithelial Cells Few <5 /hpf Urine Bacteria Few H None Seen /hpf Urine Mucus Few None Seen Urine Glucose Normal Normal mg/dL Blood Gas Spontaneous Rate 13 Test 04/23/25 07:20 04/23/25 07:04 04/23/25 04:28 04/23/25 01:29 Range/Units Influenza Type A Antigen Negative Negative Influenza Type B Antigen Negative Negative SARS-CoV-2 Antigen (Rapid) Negative NEGATIVE Erythrocyte Sedimentation Rate 1 0-20 mm/hr D-Dimer, Quantitative 1.97 H 0.0-0.49 mg/L FEU Direct Bilirubin 0.4 H <0.3 mg/dL C-Reactive Protein High Sensitivity 0.38 <1.0 mg/dL Thyroid Stimulating Hormone (TSH) 0.85 0.55-4.78 uIU/mL Troponin I High Sensitivity 36 </=54 ng/L Hemoglobin A1c 6.7 H <5.7 % A1C Test 04/23/25 01:26 Range/Units B-Type Natriuretic Peptide 276.13 0-100 pg/mL Microbiology Date/Time Source Procedure Growth Status 04/24/25 01:45 Blood Blood Culture - Preliminary NO GROWTH AFTER 24 HOURS OF INCUBATION. Resulted 04/23/25 21:00 Sputum Expectorated Sputum Gram Stain Pending Resulted 04/23/25 21:00 Sputum Expectorated Sputum Respiratory Culture - Preliminary Resulted 04/23/25 19:00 Voided Urine Urine Culture - Preliminary Resulted 04/23/25 17:00 Nose MRSA Screen - Final Complete Assessment Impression: Acute hypoxic respiratory failure 2/2 COPD exacerbation On mechanical ventilator Acute COPD exacerbation Acute CHF exacerbation Acute metabolic encephalopathy Septic shock Lactic acidosis Pleural effusions Atelectasis Obesity Plan: s/p intubation on mechanical ventilator. CXR image and report reviewed. Devices in place. Mild pulmonary vascular congestion. ABG reviewed, notable for alkalemia d/t metabolic alkalosis. On AC mode; RR 20, VT 450, PEEP 8, FiO2 30% Titrate FIO2 to keep O2 saturation above 90%. VAP bundle. Daily ABG and CXR while intubated Sedate for ventilator synchrony - On Versed/Fentanyl Continue bronchodilators. Continue antibiotics. IV steroids On heparin drip Elevated lactic acid - monitor On pressors for hemodynamic support On Claude-Synephrine 20 mcg/min Titrate to keep mean arterial pressure greater than 65 mmHg. Diurese with Lasix Monitor renal function Monitor electrolytes. Supplement as necessary. Monitor ins and outs. Maintain euvolemia. Obesity complicates all care. GI prophylaxis. DVT prophylaxis - Lovenox. Prognosis: Poor given patient's multiple co-morbidities. Condition: Critical Rest of plan per hospitalist and other consultants. A total of 35 minutes of critical care time was spent reviewing the patient record, examining the patient, making a diagnostic and therapeutic plan, discussing this plan with the medical personnel, following up on diagnostic studies and following the patient for clinical stability excluding any and all procedures. At least 50% of this time was spent in direct, [id number] contact. Thank you, Dr. Fung, for allowing me to participate in this patient's care. Further recommendations will depend on the patient's clinical course. Please do not hesitate to contact me if you have any questions or concerns. This medical document was created using an electronic medical record system with [employer]ation system. Although these documentations are being carefully reviewed, there may still be some phonetic and typographical changes. The errors are purely typographical, due to imperfection on the software program, and do not reflect any compromise in the patient's medical care. Plan discussed with: Other (RN/Dr. Fung) VITO REDMOND MD Apr 25, 2025 23:53
[2025-04-26] VITALS (97 sets, daily range): BP systolic 81–147; BP diastolic 45–93; PULSE 70–102; RESP 19–36; TEMP 97.2–99.5; O2SAT 96–100
[2025-04-26 03:47] LABS: Hematocrit 49.1 % (41.0-53.0); Hemoglobin 16.4 g/dL (13.5-17.5); Mean Corpuscular Hemoglobin 29.9 pg (28.0-32.0); Mean Corpuscular Volume 89.8 fL (80.0-100.0); Nucleated Red Blood Cells % 0.1 %
[2025-04-26 04:05] LABS: INR 1.39 (0.9-1.15); Partial Thromboplastin Time 65.9 SEC (24.5-34.5); Prothrombin Time 14.3 sec (9.3-11.8)
[2025-04-26 04:14] LABS: Alanine Aminotransferase 10 U/L (7-40); Alkaline Phosphatase 47 U/L (46-116); Anion Gap 10 (5-15); BUN/Creatinine Ratio 22.5 (10.0-20.0); Carbon Dioxide 31 mmol/L (20-31); Chloride 100 mmol/L (98-107); Potassium 3.7 mmol/L (3.5-5.1); Sodium 141 mmol/L (136-145)
[2025-04-26 04:15] LABS: Bilirubin, Total 1.0 mg/dL (0.2-1.0)
[2025-04-26 04:20] LABS: Albumin 2.8 g/dL (3.2-4.8); Blood Urea Nitrogen 29 mg/dL (9-23); Calcium 8.1 mg/dL (8.7-10.4); Glucose 138 mg/dL (74-106); Total Protein 5.1 g/dL (5.7-8.2)
--- NOTE | 2025-04-26 04:51 | CONS ---
Pharmacy Clinical Information: PTT=65.9, THERAPEUTIC X 1, CONTINUE WITH NO CHANGES AT 600 UNITS/HR= 6 ML/HR. NEXT PTT @ 0339. BOBO ELIZONDO Apr 26, 2025 04:51
--- NOTE | 2025-04-26 06:39 | DVH ---
CHEST RADIOGRAPH Indication: Respiratory failure Technique: Single frontal view of the chest was obtained Comparison: XY CHEST PORTABLE on DOS: 04/25/25, XY CHEST XRAY 1 VIEW on DOS: 04/24/25, XY CHEST PORTABL E on DOS: 04/23/25, XY CHEST XRAY 1 VIEW on DOS: 04/23/25, XY CHEST XRAY 1 VIEW on DOS: 04/23/25, XY RANDEE ST PORTABLE on DOS: 04/25/25 FINDINGS: Lines and Tubes: Endotracheal tube in satisfactory position. Lungs: Bilateral airspace disease. Pleura: No effusion. No pneumothorax. Cardiomediastinal contours: Unremarkable Bones: Unremarkable IMPRESSION: 1. Endotracheal tube in satisfactory position. 2. Mild pulmonary vascular congestion 3. Interval removal of right sided catheter.
[2025-04-26 06:43] LABS: Base Excess 6.0 mmol/L (-2.0-3.0)
[2025-04-26] MEDS: DIGOXIN 0.125 MG TAB PO SCH (10:00)
--- NOTE | 2025-04-26 10:25 | DVHPN2 ---
Consult Progress Note Subjective Review of Systems: Deferred (Intubated and sedated) Objective vital signs Vital Sign Date Time Temp Pulse Resp B/P (MAP) Pulse Ox O2 Delivery O2 Flow Rate FiO2 04/26/25 09:30 97.7 74 20 102/61 (75) 99 207.9 04/26/25 09:16 30 04/26/25 06:00 Mechanical Ventilator+ 0 Total Intake and Output 04/25/25 04/25/25 04/26/25 15:00 23:00 07:00 Intake Total 515.99 ml 469.75 ml 543.50 ml Output Total 1600 ml 550 ml Balance 515.99 ml -1130.25 ml -6.50 ml medications Current Medications Medications Dose Ordered Sig/Jose Alfredo Route Start Time Stop Time Status Last Admin Dose Admin Acetaminophen 650 mg Q6HP PRN PO 04/23/25 05:00 Nitroglycerin 0.4 mg Q5MINP PRN SL 04/23/25 05:00 Furosemide 40 mg DAILY IV 04/23/25 10:00 04/25/25 09:45 40 MG Carvedilol 3.125 mg Q12HR PO 04/23/25 10:00 Hold 04/23/25 11:30 3.125 MG Methylprednisolone Sodium Succinate 40 mg BID IV 04/23/25 11:00 04/25/25 21:36 40 MG Diagnostic Test (Pha) 1 strip Q6HR 04/23/25 18:00 04/26/25 05:44 1 STRIP Insulin Human Regular Q6HR SC 04/23/25 18:00 04/26/25 05:55 2 UNITS Dextrose 50 ml UD PRN IV 04/23/25 15:30 Vasopressin 20 units/Sodium Chloride 100 ml @ 9 mls/hr Q11H7M IV 04/23/25 18:30 Propofol 100 ml @ 2.268 mls/ hr Q24H IV 04/23/25 20:45 04/23/25 21:00 2.268 MLS/HR Fentanyl Citrate 250 ml @ 2.5 mls/hr Q24H IV 04/23/25 20:45 04/25/25 18:18 10 MLS/HR Midazolam HCl 50 ml @ 1 mls/hr Q24H IV 04/23/25 23:15 04/26/25 06:34 7 MLS/HR Piperacillin Sod/ Tazobactam Sod 100 ml @ 25 mls/hr Q8HR IV 04/24/25 06:00 04/26/25 05:44 25 MLS/HR Vancomycin HCl 0 ml @ 0 mls/hr UD IV 04/24/25 00:45 Norepinephrine Bitartrate 250 ml @ 1.875 mls/ hr Q24H IV 04/24/25 03:45 04/25/25 05:14 9.375 MLS/HR Digoxin 0.125 mg DAILY PO 04/26/25 10:00 Phenylephrine HCl 250 ml @ 30 mls/hr Q8H20M IV 04/25/25 19:30 04/25/25 23:35 11.25 MLS/HR Heparin Sodium/ Dextrose 250 ml @ 6 mls/hr Q24H IV 04/25/25 21:00 Examination: LUNGS:Abnormal (Vent, FiO2 30%), CVS:Abnormal (Telemetry consistent with atrial fibrillation controlled rate at 84 beats per minute), NEURO:Abnormal (Sedated) laboratory and microbiology Laboratory Tests 04/26/25 03:21 Test 04/26/25 03:21 Range/Units Serum Glucose 138 H 74-106 mg/dL Problem List/Assessment/Plan Problem List/Assessment/Plan Problem List/Assessment/Plan Rule out structural heart disease Hypertensive urgency Supraventricular tachycardia, now sinus tachycardia Prolonged QTc interval Acute hypoxic respiratory failure Bilateral pleural effusions Malpositioned central line, status post balloon angioplasty with assisted removal of right subclavian artery catheter Type 2 diabetes mellitus Hyperkalemia Obesity. New onset atrial flutter 2-1 AV conduction with RVR Dilated cardiomyopathy (EF 25%) Shock, septic Plan/Recommendation (Dr. Mercado): * Transthoracic echocardiogram with EF 25%, dilated cardiomyopathy * Vasopressors for hemodynamic support * Unable to continue guideline directed medical therapy for CHF given vasopressor support * Strict intake and output, daily weights, maintain fluid restriction * Diuresis as tolerated * Avoid medications that prolong QTc interval * Cardiac surveillance * Repeat EKG in AM 04/25/25 * Continue digoxin 0.125 mg daily. * Sinus switch norepinephrine to Claude-Synephrine due to elevated heart rate. Titrate to keep mean greater than 65 mmHg * Plan to initiate on anticoagulation therapy with heparin per low-dose protocol for stroke prophylaxis, CHADS2 Vasc score 5. Currently intubated in ICU, echo reviewed showing dilated cardiomyopathy EF 25%. Bedside telemetry and EKG reviewed showing patient to be in two-to-one atrial flutter with RVR. Initiated on digoxin. Converted to atrial fibrillation controlled rate in the 70s. Continue digoxin. Spoke with Interventional radiology due to recent line removal with arterial angioplasty, low risk for bleeding, greater than 24 hours , Hemoglobin stable, okay to initiate on anticoagulation therapy. Continue anticoagulation therapy for stroke prophylaxis. Continue close monitoring for bleeding. Thank you for allowing us to care for this patient. Please call with any questions or concerns. Critical care time spent: 40 minutes. This medical document was created using an electronic medical record system with voice recognition software and computerized dictation system. Although this document has been carefully reviewed, there might still be some phonetic and typographical errors. Occasional wrong-word or ``sound-alike substitutions may have occurred due to the inherent limitations of voice recognition software. These areas are purely typographical due to imperfections of the software programs and do not reflect any compromise in the patient's medical care. Please read the chart carefully and recognize, using context, where these substitutions have occurred. Plan discussed with: Other (Bedside RN) Dietary Evaluation Review Comments: Nutrition Recommendation: 1. TF Vital AF 1.2 Luis Enrique @ 60 ml/hr. start @ 20ml/hr, increase 10ml/hr Q4H until goal is reached. TF at goal volume provides 100% energy & protein needs - 1728 kcal, 108 gm protein, 1168 ml free water 2. Water flush 140ml Q6H if allowed 3. TPN if NPO> 7 days Expected Outcomes/Goals: To meet >75% estimated needs Fu 2-3 days Date of Service: Apr 26, 2025 Billing Provider: DINORAH CHU Common Visit Codes: [id number] INP/OBS CARE(HIGH), [id number] CARE 30-74 MIN DINORAH CHU Apr 26, 2025 10:25
[2025-04-26] MEDS: DIGOXIN 0.125 MG TAB PO ONE (10:30)
[2025-04-26 15:35] LABS: INR 1.34 (0.9-1.15); Prothrombin Time 13.8 sec (9.3-11.8)
[2025-04-26 15:40] LABS: Partial Thromboplastin Time 78.0 SEC (24.5-34.5)
--- NOTE | 2025-04-26 16:45 | CONS ---
Pharmacy Clinical Information: HEPARIN DRIP aPTT 79 OLD RATE 600 UNITS/HR (6 ML/HR) NEW RATE 400 UNITS/HR (4 ML/HR) NEXT aPTT 04/26 @2300 COMMUNICATED WITH RN JOHNNY LOTT PHARMACIST Apr 26, 2025 16:45
--- NOTE | 2025-04-26 16:47 | DVH ---
CHEST RADIOGRAPH Indication: OGT PLACEMENT Technique: Single frontal view of the chest was obtained Comparison: XY CHEST PORTABLE on DOS: 04/26/25, XY CHEST PORTABLE on DOS: 04/25/25, XY CHEST XRAY 1 VIE W on DOS: 04/24/25 FINDINGS: Lines and Tubes: Endotracheal tube 2.7 cm above the kate. Orogastric tube below the left diaphragm tip not visualized. Orogastric tube below the left diaphragm tip not visualized. Lungs: No focal consolidation. Pleura: No effusion. No pneumothorax. Cardiomediastinal contours: Unremarkable Bones: No acute osseous abnormality. IMPRESSION: Endotracheal tube 2.7 cm above the kate. Orogastric tube below the left diaphragm tip not visualized. No significant change from 04/26/2025 5:13 a.m.
[2025-04-26] MEDS ORDERED: VANCOMYCIN 1GM/200ML PM 200 ML IV SCH (18:00)
[2025-04-26] MEDS: HEPARIN DRIP/D5W 100UNITS/ML 250 ML IV SCH (18:50)
[2025-04-26] MEDS: VANCOMYCIN 1GM/200ML PM 200 ML IV ONE (20:04)
[2025-04-26] MEDS: VANCOMYCIN 1GM/250ML KIT 250 ML IV SCH (20:06)
[2025-04-26 23:15] LABS: INR 1.3 (0.9-1.15); Partial Thromboplastin Time 44.4 SEC (24.5-34.5); Prothrombin Time 13.4 sec (9.3-11.8)
--- NOTE | 2025-04-26 23:50 | DVHPN2 ---
Progress Note - Dictate Date Seen: Apr 26, 2025 Has the PT tested + for MRSA If YES, has PT been informed?: No Medical Necessity Reason Pt with a Central, PICC or Fol: Yes The following are medically ne: Kenney Catheter Reason for kenney catheter: Strict I&O Subjective Patient seen and examined at bedside. Sedated, intubated on mechanical ventilator. Overnight events reviewed. vital signs Vital Sign Date Time Temp Pulse Resp B/P (MAP) Pulse Ox O2 Delivery O2 Flow Rate FiO2 04/26/25 23:00 98.6 87 20 137/83 (101) 100 209.5 04/26/25 22:14 30 04/26/25 22:00 Mechanical Ventilator+ 0 Total Intake and Output 04/25/25 04/25/25 04/26/25 15:00 23:00 07:00 Intake Total 515.99 ml 469.75 ml 543.50 ml Output Total 1600 ml 550 ml Balance 515.99 ml -1130.25 ml -6.50 ml medications Current Medications Medications Dose Ordered Sig/Jose Alfredo Route Start Time Stop Time Status Last Admin Dose Admin Acetaminophen 650 mg Q6HP PRN PO 04/23/25 05:00 Nitroglycerin 0.4 mg Q5MINP PRN SL 04/23/25 05:00 Furosemide 40 mg DAILY IV 04/23/25 10:00 04/26/25 10:43 40 MG Carvedilol 3.125 mg Q12HR PO 04/23/25 10:00 Hold 04/23/25 11:30 3.125 MG Methylprednisolone Sodium Succinate 40 mg BID IV 04/23/25 11:00 04/26/25 21:30 40 MG Diagnostic Test (Pha) 1 strip Q6HR 04/23/25 18:00 04/26/25 23:46 1 STRIP Insulin Human Regular Q6HR SC 04/23/25 18:00 04/26/25 18:30 3 UNITS Dextrose 50 ml UD PRN IV 04/23/25 15:30 Vasopressin 20 units/Sodium Chloride 100 ml @ 9 mls/hr Q11H7M IV 04/23/25 18:30 Propofol 100 ml @ 2.268 mls/ hr Q24H IV 04/23/25 20:45 04/23/25 21:00 2.268 MLS/HR Fentanyl Citrate 250 ml @ 2.5 mls/hr Q24H IV 04/23/25 20:45 04/26/25 18:52 12.5 MLS/HR Midazolam HCl 50 ml @ 1 mls/hr Q24H IV 04/23/25 23:15 04/26/25 06:34 7 MLS/HR Piperacillin Sod/ Tazobactam Sod 100 ml @ 25 mls/hr Q8HR IV 04/24/25 06:00 04/26/25 21:30 25 MLS/HR Vancomycin HCl 0 ml @ 0 mls/hr UD IV 04/24/25 00:45 Norepinephrine Bitartrate 250 ml @ 1.875 mls/ hr Q24H IV 04/24/25 03:45 04/25/25 05:14 9.375 MLS/HR Digoxin 0.125 mg DAILY PO 04/26/25 10:00 Phenylephrine HCl 250 ml @ 30 mls/hr Q8H20M IV 04/25/25 19:30 04/25/25 23:35 11.25 MLS/HR Digoxin 0.125 mg DAILY PO 04/27/25 10:00 Heparin Sodium/ Dextrose 250 ml @ 4 mls/hr Q24H IV 04/26/25 16:45 04/26/25 18:50 4 MLS/HR Vancomycin HCl 250 ml @ 250 mls/hr DAILY@1800 IV 04/26/25 18:15 04/26/25 20:06 250 MLS/HR objective Gen.: Patient lying in bed in medical ICU. Sedated, intubated on mechanical ventilator. Head: Normocephalic, atraumatic. Eyes: PERRLA. Ears: Normal external anatomy. Throat: Endotracheal tube and orogastric tube in place. Neck: Supple, trachea midline. Chest: Transmitted breath sounds bilaterally. Decreased air entry bilaterally. No wheezing. Bibasilar crackles. Cardiovascular: Positive S1, positive S2. Regular rate and rhythm. Abdomen: Positive bowel sounds in all 4 quadrants. Soft, nontender, nondistended. : Kenney in place. Normal external genitalia. Rectal: Deferred. Skin: Warm, dry. Intact. Extremities: 2+ radial pulses bilaterally. No lower extremity edema. Neuro: Sedated. laboratory and microbiology Laboratory Tests 04/26/25 03:21 Test 04/26/25 03:21 Range/Units Serum Glucose 138 H 74-106 mg/dL Assessment/Plan Impression: Acute hypoxic respiratory failure 2/2 COPD exacerbation On mechanical ventilator Acute COPD exacerbation Acute CHF exacerbation Acute metabolic encephalopathy Septic shock Lactic acidosis Pleural effusions Atelectasis Obesity Events: Remains on vent support On AC mode; RR 20, VT 450, PEEP 8, FiO2 30% Sedated on Versed, Fentanyl ABG reviewed, notable for alkalemia d/t metabolic alkalosis. CXR reviewed, demonstrates mild pulmonary vascular congestion. Devices in place. Remains on Claude-Synephrine for hemodynamic support Titrate to keep mean arterial pressure greater than 65 mmHg. Continue antibiotics On heparin drip Taper PEEP to 5 cm H2O. Labs and imaging reviewed. Rest of plan as noted below. Plan: s/p intubation on mechanical ventilator. Vent settings: AC mode; RR 20, VT 450, PEEP 5, FiO2 30% Titrate FIO2 to keep O2 saturation above 90%. VAP bundle. Daily ABG and CXR while intubated Sedate for ventilator synchrony - On Versed/Fentanyl Continue bronchodilators. Continue antibiotics. IV steroids On heparin drip Elevated lactic acid - monitor On pressors for hemodynamic support Titrate to keep mean arterial pressure greater than 65 mmHg. Diurese with Lasix Monitor renal function Monitor electrolytes. Supplement as necessary. Monitor ins and outs. Maintain euvolemia. Obesity complicates all care. GI prophylaxis. DVT prophylaxis - Lovenox. Prognosis: Poor given patient's multiple co-morbidities. Condition: Critical Rest of plan per hospitalist and other consultants. A total of 35 minutes of critical care time was spent reviewing the patient record, examining the patient, making a diagnostic and therapeutic plan, discussing this plan with the medical personnel, following up on diagnostic studies and following the patient for clinical stability excluding any and all procedures. At least 50% of this time was spent in direct, [id number] contact. Thank you, Dr. Serra, for allowing me to participate in this patient's care. Further recommendations will depend on the patient's clinical course. Please do not hesitate to contact me if you have any questions or concerns. This medical document was created using an electronic medical record system with [employer] system. Although these documentations are being carefully reviewed, there may still be some phonetic and typographical changes. The errors are purely typographical, due to imperfection on the software program, and do not reflect any compromise in the patient's medical care. Dietary Evaluation Review Comments: Nutrition Recommendation: 1. TF Vital AF 1.2 Luis Enrique @ 60 ml/hr. start @ 20ml/hr, increase 10ml/hr Q4H until goal is reached. TF at goal volume provides 100% energy & protein needs - 1728 kcal, 108 gm protein, 1168 ml free water 2. Water flush 140ml Q6H if allowed 3. TPN if NPO> 7 days Expected Outcomes/Goals: To meet >75% estimated needs Fu 2-3 days Plan discussed with: Other (DUDLEY Ch) Critical Care Time(min): 35 VITO REDMOND MD Apr 26, 2025 23:50
[2025-04-27] VITALS (107 sets, daily range): BP systolic 82–170; BP diastolic 49–101; PULSE 44–100; RESP 19–26; TEMP 97.7–99; O2SAT 97–100
[2025-04-27] MEDS: HEPARIN DRIP/D5W 100UNITS/ML 250 ML IV SCH
[2025-04-27 04:11] LABS: Anion Gap 11 (5-15); Carbon Dioxide 31 mmol/L (20-31); Chloride 101 mmol/L (98-107); Sodium 143 mmol/L (136-145)
[2025-04-27 04:18] LABS: BUN/Creatinine Ratio 25.9 (10.0-20.0)
[2025-04-27 04:20] LABS: Hematocrit 48.0 % (41.0-53.0); Hemoglobin 16.1 g/dL (13.5-17.5); Mean Corpuscular Hemoglobin 30.3 pg (28.0-32.0); Mean Corpuscular Volume 90.4 fL (80.0-100.0); Nucleated Red Blood Cells % 0.1 %
[2025-04-27 04:36] LABS: Blood Urea Nitrogen 29 mg/dL (9-23); Calcium 7.3 mg/dL (8.7-10.4); Glucose 157 mg/dL (74-106); Potassium 3.5 mmol/L (3.5-5.1)
--- NOTE | 2025-04-27 05:10 | DVH ---
EXAM: XR Chest, 1 View CLINICAL INDICATION: Pain TECHNIQUE: Frontal view of the chest. COMPARISON: XR Chest dated 04/26/2025 FINDINGS: LUNGS AND PLEURAL SPACES: Pulmonary congestion and edema. Pneumonia cannot be excluded. Left pleura l effusion. No pneumothorax. HEART: Unremarkable. No cardiomegaly. MEDIASTINUM: Unremarkable. Normal mediastinal contour. BONES/JOINTS: Unremarkable. No acute fracture. TUBES, LINES AND DEVICES: The endotracheal tube (ETT) is in satisfactory position. Enteric tube tip cannot be seen but is below the diaphragm. IMPRESSION: 1. Pulmonary congestion and edema. Pneumonia cannot be excluded. 2. Left pleural effusion.
[2025-04-27 07:07] LABS: Base Excess 5.8 mmol/L (-2.0-3.0)
[2025-04-27 08:03] LABS: INR 1.31 (0.9-1.15); Partial Thromboplastin Time 69.2 SEC (24.5-34.5); Prothrombin Time 13.5 sec (9.3-11.8)
[2025-04-27] MEDS ORDERED: DIGOXIN 0.125 MG TAB PO SCH (10:00)
--- NOTE | 2025-04-27 10:25 | DVHPNRES ---
Progress Note Date Seen: Apr 27, 2025 Resident Creating Document: MIS REYEZ RESIDENT Has the PT tested + for MRSA If YES, has PT been informed?: No Medical Necessity Reason Pt with a Central, PICC or Fol: Yes The following are medically ne: Kenney Catheter Reason for kenney catheter: Strict I&O Subjective Review of Systems Mr. Farley is a 79-year-old male who presents with a chief complaint of bilateral leg swelling. He reports a chronic history of leg swelling, previously managed with a medication obtained from [place], the name of which he cannot recall. He admits to not taking this medication for some time. The patient is a poor historian but endorses a past medical history of diabetes mellitus (DM), hypertension (HTN), and an unspecified "heart issue." He denies any recent chest pain, shortness of breath, or dizziness. On triage, his blood pressure was markedly elevated at 180/116 mmHg with a pulse of 140 bpm. Given his history and current presentation, differential diagnoses include fluid retention possibly due to cardiac or renal insufficiency, medication noncompliance, electrolyte imbalance, and other systemic causes. Past Medical History diabetes mellitus (DM), hypertension (HTN), and an unspecified "heart issue." Past Surgical History none Family History: None (Noncontributory) Smoke: No ALCOHOL: none Drugs: None Lives: with Family Domestic Violence: Neg 04/23/25: patient was found with high oxygen requirements, respiratory acidosis, BIPAP was placed, POCUS at bedside possible reduced ejection fraction and hypokinesis, patient is having acute respiratory failure due to acute exacerbation of heart failure and COPD, antibiotics and solumedrol were started, mild hypokalemia was resolved with IV insulin 10 ui and furosemide, patient still has HR above 130, carvedilol is added, patient is MARIELENA status 04/24/25: during the night of 04/23/25, patient started to be more hypercapnic and drowsy, not responding to BIPAP, so talking with bhavani family the decision was to intubate, also patient started to be hypotensive with the need of vasopressors, central line was attempted to be placed on right yugular vein but the catheter is found to be entering through the brachiocephalic (innominate) artery with its tip residing in the Aortic arch, AngioCT scan STAT confirmed the findings, general surgery was consulted who advice endovascular stent placement to span the defect in the artery by means of transfemoral arteriography done by Interventional Radiologist, the removal of the catheter was done successfully by Dr José ARZOLA (formal radiological report pending) , right now we are going to f/u hb and bed rest, family was informed about the interventions, consent forms were signed, at the moment on fentanyl and versed drip, levophed 7 mcg, ABG after procedure ph 7.47 pco2 38 po2 69.6 hco3 27.8 ,continue monitor 04/27/25: During the weekend, no bleeding from the puncture site, patient is being on afib, levophed was wean off and phenylephrine was started, also digoxin was on, low dose heparin was started due to high chadvasc. Also sedation vacation was done, but today at 4 am patient started to be agitated. His platelets are 129. Cardiology today, they changed digoxin to amiodarone. Anticoagulation was DC, he will benefit for cath due to EF 25% , possible on sunday, Lipid panel normal. Objective vital signs Vital Sign Date Time Temp Pulse Resp B/P (MAP) Pulse Ox O2 Delivery O2 Flow Rate FiO2 04/27/25 09:08 89 20 109/66 (80) 100 30 04/27/25 08:15 99.0 210.2 04/27/25 08:00 Mechanical Ventilator+ 0 Total Intake and Output 04/26/25 04/26/25 04/27/25 15:00 23:00 07:00 Intake Total 208.00 ml 451.25 ml 287.00 ml Output Total 1650 ml 650 ml Balance 208.00 ml -1198.75 ml -363.00 ml medications Current Medications Medications Dose Ordered Sig/Jose Alfredo Route Start Time Stop Time Status Last Admin Dose Admin Acetaminophen 650 mg Q6HP PRN PO 04/23/25 05:00 Nitroglycerin 0.4 mg Q5MINP PRN SL 04/23/25 05:00 Furosemide 40 mg DAILY IV 04/23/25 10:00 04/27/25 10:10 40 MG Carvedilol 3.125 mg Q12HR PO 04/23/25 10:00 Hold 04/23/25 11:30 3.125 MG Methylprednisolone Sodium Succinate 40 mg BID IV 04/23/25 11:00 04/27/25 10:10 40 MG Diagnostic Test (Pha) 1 strip Q6HR 04/23/25 18:00 04/27/25 05:33 1 STRIP Insulin Human Regular Q6HR SC 04/23/25 18:00 04/27/25 05:54 2 UNITS Dextrose 50 ml UD PRN IV 04/23/25 15:30 Vasopressin 20 units/Sodium Chloride 100 ml @ 9 mls/hr Q11H7M IV 04/23/25 18:30 Propofol 100 ml @ 2.268 mls/ hr Q24H IV 04/23/25 20:45 04/23/25 21:00 2.268 MLS/HR Fentanyl Citrate 250 ml @ 2.5 mls/hr Q24H IV 04/23/25 20:45 04/26/25 18:52 12.5 MLS/HR Midazolam HCl 50 ml @ 1 mls/hr Q24H IV 04/23/25 23:15 04/26/25 06:34 7 MLS/HR Piperacillin Sod/ Tazobactam Sod 100 ml @ 25 mls/hr Q8HR IV 04/24/25 06:00 04/27/25 05:32 25 MLS/HR Vancomycin HCl 0 ml @ 0 mls/hr UD IV 04/24/25 00:45 Norepinephrine Bitartrate 250 ml @ 1.875 mls/ hr Q24H IV 04/24/25 03:45 04/25/25 05:14 9.375 MLS/HR Phenylephrine HCl 250 ml @ 30 mls/hr Q8H20M IV 04/25/25 19:30 04/27/25 05:14 15 MLS/HR Vancomycin HCl 250 ml @ 250 mls/hr DAILY@1800 IV 04/26/25 18:15 04/26/25 20:06 250 MLS/HR Heparin Sodium/ Dextrose 250 ml @ 6 mls/hr Q24H IV 04/27/25 00:00 Potassium Chloride 100 ml @ 50 mls/hr Q2H IV 04/27/25 10:15 04/27/25 14:14 UNV Examination General Appearance: intubated, RR 20 TV 400 PEEP 5 FIO2 30 HEENT: Atraumatic, PERRLA, EOMI, Mucous membr. moist/pink, jugular distention, bruise, no hematoma no bleeding Respiratory: Bilateral basal crackles Cardiovascular: Tachycardic Abdominal: Normal bowel sounds, Soft, No tenderness, No hepatospenomegaly, No masses Extremities: Edema 2+, femoral catheter with no bleeding Skin: No rashes, No breakdown, No significant lesion laboratory and microbiology Laboratory Tests 04/27/25 03:00 Test 04/27/25 03:00 Range/Units Serum Glucose 157 H 74-106 mg/dL Microbiology Date/Time Source Procedure Growth Status 04/24/25 01:45 Blood Blood Culture - Preliminary NO GROWTH AFTER 72 HOURS OF INCUBATION. Resulted 04/23/25 21:00 Sputum Expectorated Sputum Gram Stain Pending Resulted 04/23/25 21:00 Sputum Expectorated Sputum Respiratory Culture - Preliminary Resulted 04/23/25 19:00 Voided Urine Urine Culture - Final Complete 04/23/25 17:00 Nose MRSA Screen - Final Complete Problem List/Assessment/Plan Problem List/Assessment/Plan Neurologic #Acute metabolic encephalopathy due to hypercapnic resp failure Patient is on the ventilator RASS -3 Fentanyl and versed infusion on Cardiovascular #Acute exacerbation of heart failure with possible reduced ejection fraction #Septic shock Furosemide iv 40 mg daily ECHO EF 25%: severe dilated cavities, patient will benefit from cath Cardiology on board Hold on GDMT due to shock will be started after stabilization Levophed 1.5 mcg #New onset atrial flutter 2-1 AV conduction with RVR Previously on digoxin, transition to amiodarone per cardiology: loading dose 150, then 1 mg infusion and then 0.5 mg DC anticoagulation #Hypertensive emergency resolved #sp CVC removal from right brachiocephalic/subclavian artery hb stable, patient is having a bruise, no hematoma Respiratory #Septic shock #Acute respiratory failure due to COPD exacerbation and heart failure #s/p mechanical ventilation #Respiratory alkalosis #Bilateral pleural effusions L>R at admission #pneumonia gram+/ gram - due to klebsiella pneumoniae #Severe respiratory acidosis resolved intubated, RR 20 TV 400 PEEP 5 FIO2 30 ph 7.52 pco2 35 po2 64 hco3 28.5 no cpap trial for now Vancomycin + Zosyn Solumedrol BID xray: left pleural effusion, thoracentesis ordered Endocrinology #DM type 2, hba1c 6.7 ISS, mild Renal #Hyperkalemia, resolved IV insulin and furosemide given # harish ?vasomotor nephropathy: resolved GI tube feedings Mild Hyperbillirubinemia- resolved Hem/onc thrombocytopenia: monitor, dc heparin Case discussed with Dr Corrales Full code Time spent on critical care 82 min excluding procedures and including dw family No DVT prophylaxis for now PUD prophylaxis: protonix IV Plan discussed with: Spouse, Daughter, Other (rn) Dietary Evaluation Review Comments: Nutrition Recommendation: 1. TF Vital AF 1.2 Luis Enrique @ 60 ml/hr. start @ 20ml/hr, increase 10ml/hr Q4H until goal is reached. TF at goal volume provides 100% energy & protein needs - 1728 kcal, 108 gm protein, 1168 ml free water 2. Water flush 140ml Q6H if allowed 3. TPN if NPO> 7 days Expected Outcomes/Goals: To meet >75% estimated needs Fu 2-3 days Date of Service: Apr 27, 2025 Billing Provider: PAMELA CORRALES MD Common Visit Codes: 61150-[id number] CARE 30-74 MIN, 65107-[id number] CARE-EACH +30MIN MIS REYEZ RESIDENT Apr 27, 2025 10:25 PAMELA CORRALES MD Apr 28, 2025 14:59
[2025-04-27 10:38] LABS: Triglycerides 92 mg/dL (< 150)
[2025-04-27 10:40] LABS: Cholesterol 135 mg/dL (< 200)
[2025-04-27 10:42] LABS: HDL Cholesterol 33 mg/dL (40-59)
--- NOTE | 2025-04-27 10:47 | DVG ---
CL CENTRAL VENOUS CATH, CVAD, HISTORY: Central line placed into the right brachiocephalic/subclavian artery here for removal PROCEDURE: Informed consent was obtained. The patient was placed on the fluoroscopic table in supine position. The right groin was prepped with chlorhexidine which was allowed to dry and draped in the usual sterile fashion. Time out was performed. Contrast was injected into the right central line for an aortogram. Following administration of 1% local lidocaine, the common femoral artery was accessed with a micropuncture set under ultrasound guidance, and an image documenting patency sent to PACS. An angiogram was performed of the groin. A 7 English sheath was placed into the left iliac artery. A diagnostic catheter was placed into the right brachiocephalic artery and an angiogram was done in multiple projections. A wire was placed into the right subclavian artery. A 8 mm x 4 cm balloon was used to place at the entrance site of the right central line. The central line was removed, balloon inflated, and manual pressure held to 8 minutes. The balloon was deflated. Manual compression released. A diagnostic catheter placed into the right brachiocephalic artery and an angiogram was performed. No contrast extravasation was seen. The wire and catheter and sheath removed, and angioseal deployed for groin hemostasis. Manual pressure held. No immediate complication was identified. DAP 1781 FLUOROSCOPY TIME: 12.2 minutes. CONTRAST USED: 85 mL. SEDATION: Dr. Chikis Kumar was personally responsible for the administration of moderate sedation during the procedure performed, including the use of an independent trained observer who had no other duties during the procedure. The drugs utilized were IV fentanyl and versed (see nursing log for details). The total time of supervision by the attending physician was approximately 75 minutes. FINDINGS: Central line tip visualized in the aortic arch. Entrance site of the right central line is at the proximal subclavian artery adjacent to the vertebral artery. Removal of right central catheter from the artery shows no extravasation after balloon angioplasty and manual pressure. Completion angiogram shows patency of the right brachiocephalic, carotid, subclavian, and vertebral artery. IMPRESSION: Entrance site of the right central line is at the proximal subclavian artery adjacent to the vertebral artery. Removal of right central catheter from the artery shows no extravasation after 8 mm balloon angioplasty and manual pressure. Completion angiogram shows patency of the right brachiocephalic, carotid, subclavian, and vertebral artery. PLAN: Right leg straight for 2 hours. Obtain chest x ray. GENCY MEDICINE MEDICAL DIRECTOR RUPAL
--- NOTE | 2025-04-27 11:43 | DVHPN2 ---
Consult Progress Note Date Seen: Apr 27, 2025 Subjective Other Systems: No overnight events reported Objective vital signs Vital Sign Date Time Temp Pulse Resp B/P (MAP) Pulse Ox O2 Delivery O2 Flow Rate FiO2 04/27/25 11:04 92 20 109/60 (76) 98 30 04/27/25 10:45 98.2 208.8 04/27/25 10:00 Mechanical Ventilator+ 0 Total Intake and Output 04/26/25 04/26/25 04/27/25 14:59 22:59 06:59 Intake Total 347.50 ml 412.00 ml 288.25 ml Output Total 1650 ml 650 ml Balance 347.50 ml -1238.00 ml -361.75 ml medications Current Medications Medications Dose Ordered Sig/Jose Alfredo Route Start Time Stop Time Status Last Admin Dose Admin Acetaminophen 650 mg Q6HP PRN PO 04/23/25 05:00 Furosemide 40 mg DAILY IV 04/23/25 10:00 04/27/25 10:10 40 MG Carvedilol 3.125 mg Q12HR PO 04/23/25 10:00 Hold 04/23/25 11:30 3.125 MG Methylprednisolone Sodium Succinate 40 mg BID IV 04/23/25 11:00 04/27/25 10:10 40 MG Diagnostic Test (Pha) 1 strip Q6HR 04/23/25 18:00 04/27/25 05:33 1 STRIP Insulin Human Regular Q6HR SC 04/23/25 18:00 04/27/25 05:54 2 UNITS Dextrose 50 ml UD PRN IV 04/23/25 15:30 Vasopressin 20 units/Sodium Chloride 100 ml @ 9 mls/hr Q11H7M IV 04/23/25 18:30 Propofol 100 ml @ 2.268 mls/ hr Q24H IV 04/23/25 20:45 04/23/25 21:00 2.268 MLS/HR Fentanyl Citrate 250 ml @ 2.5 mls/hr Q24H IV 04/23/25 20:45 04/26/25 18:52 12.5 MLS/HR Midazolam HCl 50 ml @ 1 mls/hr Q24H IV 04/23/25 23:15 04/26/25 06:34 7 MLS/HR Piperacillin Sod/ Tazobactam Sod 100 ml @ 25 mls/hr Q8HR IV 04/24/25 06:00 04/27/25 05:32 25 MLS/HR Vancomycin HCl 0 ml @ 0 mls/hr UD IV 04/24/25 00:45 Norepinephrine Bitartrate 250 ml @ 1.875 mls/ hr Q24H IV 04/24/25 03:45 04/25/25 05:14 9.375 MLS/HR Phenylephrine HCl 250 ml @ 30 mls/hr Q8H20M IV 04/25/25 19:30 04/27/25 05:14 15 MLS/HR Vancomycin HCl 250 ml @ 250 mls/hr DAILY@1800 IV 04/26/25 18:15 04/26/25 20:06 250 MLS/HR Heparin Sodium/ Dextrose 250 ml @ 6 mls/hr Q24H IV 04/27/25 00:00 Potassium Chloride 100 ml @ 50 mls/hr Q2H IV 04/27/25 10:15 04/27/25 14:14 UNV Examination: GENERAL:Abnormal, LUNGS:Abnormal (Endotracheally intubated with 30% FiO2), CVS:Abnormal (A-fib controlled rate. Off vasopressors), NEURO:Abnormal (On light sedation, responds to stimuli) laboratory and microbiology Laboratory Tests 04/27/25 03:00 Test 04/27/25 03:00 Range/Units Serum Glucose 157 H 74-106 mg/dL Problem List/Assessment/Plan Problem List/Assessment/Plan Acute on chronic decompensated HFrEF LVEF of 25%, ?ischemic Atrial fibrillation/atrial flutter with intermittent RVR, newly diagnosed, now controlled rate Transient supraventricular tachycardia Acute hypoxic respiratory failure Bilateral pleural effusions, L>R Borderline thrombocytopenia, ?HIT Type 2 diabetes mellitus Obesity Plan/Recommendation (Dr. Mercado) * Transthoracic echocardiogram with EF 25%, dilated cardiomyopathy * Preload reduction * Strict intake and output, daily weights, maintain fluid restriction * Initiate antiarrhythmic therapy, amiodarone drip per pharmacy protocol * QTc interval WNL * Therapeutic Lovenox BID. Transition to DOAC when appropriate * [id number]-Vpes Score 5 points. HAS-BLED Score 1 point * Rate control, discontinue digoxin therapy * Monitor ECG changes closely and notify * Replete electrolytes as necessary The patient may be a candidate for a cardiac catheterization and coronary angiogram. We will continue to follow up closely. Thank you for allowing us to care for this patient. Please call with any questions or concerns. Critical care time spent: 40 minutes. This medical document was created using an electronic medical record system with voice recognition software and computerized dictation system. Although this document has been carefully reviewed, there might still be some phonetic and typographical errors. Occasional wrong-word or ``sound-alike substitutions may have occurred due to the inherent limitations of voice recognition software. These areas are purely typographical due to imperfections of the software programs and do not reflect any compromise in the patient's medical care. Please read the chart carefully and recognize, using context, where these substitutions have occurred. Plan discussed with: Other Dietary Evaluation Review Comments: Nutrition Recommendation: 1. TF Vital AF 1.2 Luis Enrique @ 60 ml/hr. start @ 20ml/hr, increase 10ml/hr Q4H until goal is reached. TF at goal volume provides 100% energy & protein needs - 1728 kcal, 108 gm protein, 1168 ml free water 2. Water flush 140ml Q6H if allowed 3. TPN if NPO> 7 days Expected Outcomes/Goals: To meet >75% estimated needs Fu 2-3 days Date of Service: Apr 27, 2025 Billing Provider: FRANCOIS NOLASCO Cardiology Common Codes: 20416-[id number] CARE 30-74 MIN FRANCOIS NOLASCO Apr 27, 2025 11:43
[2025-04-27] MEDS: POTASSIUM CHL 20MEQ/100ML 100 ML IV SCH (11:50)
[2025-04-27] MEDS: ENOXAPARIN SOD 100 MG/1 ML SYRINGE SC ONE (11:50)
[2025-04-27] MEDS: AMIODARONE BOLUS KIT 100 ML IV ONE (11:50)
[2025-04-27] MEDS: AMIODARONE 360mg/200mL PREMIX 200 ML IV ONE (11:59)
[2025-04-27] MEDS: NOREPINEPHRINE BITARTRATE 32 MG in SODIUM CHL 0.9% 218 ML IV SCH ×2 (13:09→15:00)
[2025-04-27] MEDS: Vital AF 1.2 Cal 1 liter bottle GT SCH (14:34)
[2025-04-27] MEDS: PANTOPRAZOLE 40 MG/10 ML VIAL INJ IV ONE (18:01)
[2025-04-27] MEDS: AMIODARONE 360mg/200mL PREMIX 200 ML IV SCH (18:04)
--- NOTE | 2025-04-27 19:36 | DVH ---
Bilateral Chest Sonogram Date: 04/27/2025 04:01 PM Clinical history: LT SIDED PLEURAL EFFUSION Images submitted: 2 Technique: Grayscale images obtained of the bilateral chest. Comparison: Chest radiograph from 04/27/2025 Findings/IMPRESSION: Moderate left and small right pleural effusions.
[2025-04-27] MEDS ORDERED: ENOXAPARIN SOD 100 MG/1 ML SYRINGE SC SCH (22:00)
[2025-04-28] VITALS (103 sets, daily range): BP systolic 70–162; BP diastolic 32–95; PULSE 51–111; RESP 19–23; TEMP 62.4–99; O2SAT 95–100
[2025-04-28 04:04] LABS: Hematocrit 49.2 % (41.0-53.0); Hemoglobin 16.3 g/dL (13.5-17.5); Mean Corpuscular Hemoglobin 29.9 pg (28.0-32.0); Mean Corpuscular Volume 90.3 fL (80.0-100.0); Nucleated Red Blood Cells % 0.0 %
[2025-04-28 04:20] LABS: Alanine Aminotransferase 15 U/L (7-40); Alkaline Phosphatase 47 U/L (46-116); Anion Gap 8 (5-15); BUN/Creatinine Ratio 26.6 (10.0-20.0); Carbon Dioxide 31 mmol/L (20-31); Chloride 103 mmol/L (98-107); Potassium 3.6 mmol/L (3.5-5.1); Sodium 142 mmol/L (136-145)
[2025-04-28 04:21] LABS: Bilirubin, Total 0.9 mg/dL (0.2-1.0)
[2025-04-28 04:36] LABS: Albumin 2.9 g/dL (3.2-4.8); Blood Urea Nitrogen 29 mg/dL (9-23); Calcium 7.5 mg/dL (8.7-10.4); Glucose 205 mg/dL (74-106); Total Protein 5.3 g/dL (5.7-8.2)
--- NOTE | 2025-04-28 05:10 | DVH ---
CHEST RADIOGRAPH Indication: mechanical intubation Technique: Frontal view of the chest. Comparison: XY CHEST PORTABLE on DOS: 04/27/25, XY CHEST PORTABLE on DOS: 04/26/25, XY CHEST PORTABLE o n DOS: 04/26/25, XY CHEST PORTABLE on DOS: 04/25/25, XY CHEST XRAY 1 VIEW on DOS: 04/24/25, XY CHEST POR TABLE on DOS: 04/27/25 FINDINGS: LUNGS AND PLEURAL SPACES: Pulmonary congestion and edema. Pneumonia cannot be excluded. Left pleura l effusion. No pneumothorax. HEART: Unremarkable. No cardiomegaly. MEDIASTINUM: Unremarkable. Normal mediastinal contour. BONES/JOINTS: Unremarkable. No acute fracture. TUBES, LINES AND DEVICES: The endotracheal tube (ETT) is in satisfactory position. Enteric tube tip cannot be seen but is below the diaphragm. IMPRESSION: 1. Pulmonary congestion and edema. Pneumonia cannot be excluded. 2. Left pleural effusion.
[2025-04-28 06:51] LABS: Base Excess 4.2 mmol/L (-2.0-3.0)
--- NOTE | 2025-04-28 07:29 | ECG ---
[facility] Test Date: 2025-04-25 Test Time: 11:35:21 Pat Name: PAMELA NAIDU Department: ICU Room: [address] [place] [address] A Gender: M Ese Teacher: SHANI : 1945 Requested By: MOHIT HENDERSON Order Number: [id number] Reading MD: Armin Mercado Measurements Intervals [place] Rate: 79 P: 0 CA: 0 QRS: 95 QRSD: 100 T: 260 QT: 411 QTc: 472 Interpretive Statements Atrial fibrillation Right axis deviation Abnormal lateral Q waves Abnormal T, consider ischemia, diffuse leads Electronically Signed On 05-01-2025 9:30:51 PDT by Armin Mercado Please click the below link to view image of tracing.
[2025-04-28] MEDS: PANTOPRAZOLE 40 MG/10 ML VIAL INJ IV SCH (09:39)
[2025-04-28] MEDS: LACTULOSE 20Gm/30ML SOLN PO SCH (09:40)
--- NOTE | 2025-04-28 10:57 | DVHPN2 ---
Consult Progress Note Date Seen: Apr 28, 2025 Subjective Other Systems: Reported slow ventrciular rate with pauses < 3 sec on cardiac rehab nurse, underlined a-fib rhythm Objective vital signs Vital Sign Date Time Temp Pulse Resp B/P (MAP) Pulse Ox O2 Delivery O2 Flow Rate FiO2 04/28/25 09:57 70 20 111/69 (83) 100 30 04/28/25 08:15 97.9 208.2 04/28/25 08:00 Mechanical Ventilator+ 0 Total Intake and Output 04/27/25 04/27/25 04/28/25 15:00 23:00 07:00 Intake Total 531.178 ml 734.739 ml 735.686 ml Output Total 1325 ml 1100 ml Balance 531.178 ml -590.261 ml -364.314 ml medications Current Medications Medications Dose Ordered Sig/Jose Alfredo Route Start Time Stop Time Status Last Admin Dose Admin Acetaminophen 650 mg Q6HP PRN PO 04/23/25 05:00 Furosemide 40 mg DAILY IV 04/23/25 10:00 04/27/25 10:10 40 MG Carvedilol 3.125 mg Q12HR PO 04/23/25 10:00 Hold 04/23/25 11:30 3.125 MG Methylprednisolone Sodium Succinate 40 mg BID IV 04/23/25 11:00 04/27/25 21:55 40 MG Diagnostic Test (Pha) 1 strip Q6HR 04/23/25 18:00 04/28/25 05:34 1 STRIP Insulin Human Regular Q6HR SC 04/23/25 18:00 04/28/25 05:43 4 UNITS Dextrose 50 ml UD PRN IV 04/23/25 15:30 Propofol 100 ml @ 2.268 mls/ hr Q24H IV 04/23/25 20:45 04/23/25 21:00 2.268 MLS/HR Fentanyl Citrate 250 ml @ 2.5 mls/hr Q24H IV 04/23/25 20:45 04/28/25 02:02 17.5 MLS/HR Midazolam HCl 50 ml @ 1 mls/hr Q24H IV 04/23/25 23:15 04/27/25 22:06 2 MLS/HR Piperacillin Sod/ Tazobactam Sod 100 ml @ 25 mls/hr Q8HR IV 04/24/25 06:00 04/28/25 05:33 25 MLS/HR Vancomycin HCl 0 ml @ 0 mls/hr UD IV 04/24/25 00:45 Vancomycin HCl 250 ml @ 250 mls/hr DAILY@1800 IV 04/26/25 18:15 04/27/25 18:03 250 MLS/HR Enteral Nutritional Formula 1,000 ml 60ML/HR GT 04/27/25 13:00 04/27/25 14:34 1,000 ML Norepinephrine Bitartrate 32 mg/ Sodium Chloride 250 ml @ 0.938 mls/ hr Q24H IV 04/27/25 15:15 04/27/25 15:00 0.938 MLS/HR Pantoprazole Sodium 40 mg DAILY IV 04/28/25 10:00 Lactulose 30 ml BID PO 04/28/25 10:00 Examination: GENERAL:Abnormal, LUNGS:Abnormal (Endotrecheally intubated 30% FiO2), CVS:Abnormal (A-fib controlled rate), NEURO:Abnormal (On chemical sedation) laboratory and microbiology Laboratory Tests 04/28/25 03:19 Test 04/28/25 03:19 Range/Units Serum Glucose 205 H 74-106 mg/dL Problem List/Assessment/Plan Problem List/Assessment/Plan Acute on chronic decompensated HFrEF LVEF of 25%, ?ischemic Atrial fibrillation/atrial flutter with intermittent RVR, newly diagnosed, now controlled rate Transient supraventricular tachycardia Acute hypoxic respiratory failure Bilateral pleural effusions, L>R Borderline thrombocytopenia, ?HIT Type 2 diabetes mellitus Obesity Plan/Recommendation (Dr. Mercado) * Transthoracic echocardiogram with EF 25%, dilated cardiomyopathy * Preload reduction. Initiate GDMT for HFrEF with stable BP * Strict intake and output, daily weights, maintain fluid restriction * Hold antiarrhythmic therapy, amiodarone drip. Slow ventricular rate/pauses * Therapeutic Lovenox held. Transition to DOAC therapy when appropriate * [id number] Score 5 points. HAS-BLED Score 1 point * Replete electrolytes as necessary, K>4 and Mg>2 * Monitor ECG changes closely and notify Scheduled for a cardiac catheterization and coronary angiogram with Dr. Mercado on 04/29/2025. We will continue to follow up closely. Thank you for allowing us to care for this patient. Please call with any questions or concerns. Critical care time spent: 30 minutes. This medical document was created using an electronic medical record system with voice recognition software and computerized dictation system. Although this document has been carefully reviewed, there might still be some phonetic and typographical errors. Occasional wrong-word or ``sound-alike substitutions may have occurred due to the inherent limitations of voice recognition software. These areas are purely typographical due to imperfections of the software programs and do not reflect any compromise in the patient's medical care. Please read the chart carefully and recognize, using context, where these substitutions have occurred. Plan discussed with: Other Dietary Evaluation Review Comments: Nutrition Recommendation: 1. TF Vital AF 1.2 Luis Enrique @ 60 ml/hr. start @ 20ml/hr, increase 10ml/hr Q4H until goal is reached. TF at goal volume provides 100% energy & protein needs - 1728 kcal, 108 gm protein, 1168 ml free water 2. Water flush 140ml Q6H if allowed 3. TPN if NPO> 7 days Expected Outcomes/Goals: To meet >75% estimated needs Fu 2-3 days Date of Service: Apr 28, 2025 Billing Provider: FRANCOIS NOLASCO Cardiology Common Codes: [id number] CARE 30-74 MIN FRANCOIS NOLASCO Apr 28, 2025 10:57
[2025-04-28] MEDS: POTASSIUM CHL 20MEQ/100ML 100 ML IV SCH (12:44)
--- NOTE | 2025-04-28 13:42 | DVH ---
EXAM: XY CHEST XRAY 1 VIEW Indication: post thoracentesis Technique: Single frontal view of the chest was obtained Comparison: XY CHEST XRAY 1 VIEW on DOS: 04/28/25, XY CHEST PORTABLE on DOS: 04/27/25, XY CHEST PORTABLE on DOS: 04/26/25, XY CHEST PORTABLE on DOS: 04/26/25, XY CHEST PORTABLE on DOS: 04/25/25 FINDINGS: Lines and Tubes: Endotracheal tube projects 4 cm above the kate. Enteric tube tip projects over the expected region of the stomach. Lungs: Right basilar opacity. Small right pleural effusion. Pleura: No effusion. No pneumothorax. Cardiomediastinal contours: Unremarkable Bones: No acute osseous abnormality. IMPRESSION: Right basilar opacity. Small right pleural effusion.
--- NOTE | 2025-04-28 14:11 | MEDREC ---
[facility] Intervention Section I [facility] Intervention: Deescalate AB based on CS (NARES SCREENING FOR MRSA HAS A HIGH SPECIFICITY AND NEGATIVE PREDICTIVE VALUE FOR RULING OUT MRSA PNEUMONIA, PARTICULARLY IN CASES OF CAP/HCAP. BASED ON THE NEGATIVE PREDICITVE VALUE, THE MRSA NARES NEGATIVE, THE SPUTUM CULTURE RESULTS GROWING KLEBSIELLA PNUMONIAE PLEASE CONSIDER D/C VANCOMYCIN AND DE-ESCALATION OF ZOSYN) MINH AVILA PHARMACIST Apr 28, 2025 14:11
--- NOTE | 2025-04-28 15:09 | DVH ---
PROCEDURE: ULTRASOUND GUIDED THORACENTESIS USING TEMPORARY CATHETER HISTORY: 79 Male with requiring thoracentesis. DOCUMENTATION: Informed consent was obtained and a procedural time out was performed. TECHNIQUE: Ultrasound was used to locate the left pleural fluid collection with an image archived in the PACS. The skin over the left posterior hemithorax was sterilely prepped, draped, and infiltrated with 1% lidocaine. Under real time ultrasound guidance, the left pleural space was accessed with a 19 -gauge Yueh needle and connected to Vacutainers. The Yueh catheter was advanced, the needle was remov ed and the temporary catheter was advanced and connected to the Vacutainer. Approximately 1.35 liters of serous fluid was removed. The temporary catheter was removed and sterile dressings were applied. FINDINGS: Ultrasound demonstrates a left pleural effusion. Imaging confirms the needle tip within the fluid. IMPRESSION: SUCCESSFUL ULTRASOUND GUIDED THORACENTESIS. Performed by Dr. Kumar.
--- NOTE | 2025-04-28 18:13 | DVHPNRES ---
Progress Note Date Seen: Apr 28, 2025 Resident Creating Document: MIS REYEZ RESIDENT Has the PT tested + for MRSA If YES, has PT been informed?: No Medical Necessity Reason Pt with a Central, PICC or Fol: Yes The following are medically ne: Kenney Catheter Reason for kenney catheter: Strict I&O Subjective Review of Systems Mr. Farley is a 79-year-old male who presents with a chief complaint of bilateral leg swelling. He reports a chronic history of leg swelling, previously managed with a medication obtained from [place], the name of which he cannot recall. He admits to not taking this medication for some time. The patient is a poor historian but endorses a past medical history of diabetes mellitus (DM), hypertension (HTN), and an unspecified "heart issue." He denies any recent chest pain, shortness of breath, or dizziness. On triage, his blood pressure was markedly elevated at 180/116 mmHg with a pulse of 140 bpm. Given his history and current presentation, differential diagnoses include fluid retention possibly due to cardiac or renal insufficiency, medication noncompliance, electrolyte imbalance, and other systemic causes. Past Medical History diabetes mellitus (DM), hypertension (HTN), and an unspecified "heart issue." Past Surgical History none Family History: None (Noncontributory) Smoke: No ALCOHOL: none Drugs: None Lives: with Family Domestic Violence: Neg 04/23/25: patient was found with high oxygen requirements, respiratory acidosis, BIPAP was placed, POCUS at bedside possible reduced ejection fraction and hypokinesis, patient is having acute respiratory failure due to acute exacerbation of heart failure and COPD, antibiotics and solumedrol were started, mild hypokalemia was resolved with IV insulin 10 ui and furosemide, patient still has HR above 130, carvedilol is added, patient is MARIELENA status 04/24/25: during the night of 04/23/25, patient started to be more hypercapnic and drowsy, not responding to BIPAP, so talking with bhavani family the decision was to intubate, also patient started to be hypotensive with the need of vasopressors, central line was attempted to be placed on right yugular vein but the catheter is found to be entering through the brachiocephalic (innominate) artery with its tip residing in the Aortic arch, AngioCT scan STAT confirmed the findings, general surgery was consulted who advice endovascular stent placement to span the defect in the artery by means of transfemoral arteriography done by Interventional Radiologist, the removal of the catheter was done successfully by Dr José ARZOLA (formal radiological report pending) , right now we are going to f/u hb and bed rest, family was informed about the interventions, consent forms were signed, at the moment on fentanyl and versed drip, levophed 7 mcg, ABG after procedure ph 7.47 pco2 38 po2 69.6 hco3 27.8 ,continue monitor 04/27/25: During the weekend, no bleeding from the puncture site, patient is being on afib, levophed was wean off and phenylephrine was started, also digoxin was on, low dose heparin was started due to high chadvasc. Also sedation vacation was done, but today at 4 am patient started to be agitated. His platelets are 129. Cardiology today, they changed digoxin to amiodarone. Anticoagulation was DC, he will benefit for cath due to EF 25% , possible on sunday, Lipid panel normal. 04/28/25: amiodarone dc by cardiology, off pressors, thoracentesis done, 1.3 LT drained, klebsiella positive in sputum, C tomorrow Objective vital signs Vital Sign Date Time Temp Pulse Resp B/P (MAP) Pulse Ox O2 Delivery O2 Flow Rate FiO2 04/28/25 16:30 97.9 69 20 99/58 (72) 100 97.9 04/28/25 16:00 Mechanical Ventilator+ 0 30 30 Total Intake and Output 04/27/25 04/27/25 04/28/25 15:00 23:00 07:00 Intake Total 531.178 ml 734.739 ml 735.686 ml Output Total 1325 ml 1100 ml Balance 531.178 ml -590.261 ml -364.314 ml medications Current Medications Medications Dose Ordered Sig/Jose Alfredo Route Start Time Stop Time Status Last Admin Dose Admin Acetaminophen 650 mg Q6HP PRN PO 04/23/25 05:00 Furosemide 40 mg DAILY IV 04/23/25 10:00 04/28/25 09:39 40 MG Carvedilol 3.125 mg Q12HR PO 04/23/25 10:00 Hold 04/23/25 11:30 3.125 MG Methylprednisolone Sodium Succinate 40 mg BID IV 04/23/25 11:00 04/28/25 09:39 40 MG Diagnostic Test (Pha) 1 strip Q6HR 04/23/25 18:00 04/28/25 11:52 1 STRIP Insulin Human Regular Q6HR SC 04/23/25 18:00 04/28/25 11:57 6 UNITS Dextrose 50 ml UD PRN IV 04/23/25 15:30 Propofol 100 ml @ 2.268 mls/ hr Q24H IV 04/23/25 20:45 04/23/25 21:00 2.268 MLS/HR Fentanyl Citrate 250 ml @ 2.5 mls/hr Q24H IV 04/23/25 20:45 04/28/25 14:15 20 MLS/HR Midazolam HCl 50 ml @ 1 mls/hr Q24H IV 04/23/25 23:15 04/27/25 22:06 2 MLS/HR Piperacillin Sod/ Tazobactam Sod 100 ml @ 25 mls/hr Q8HR IV 04/24/25 06:00 04/28/25 14:10 25 MLS/HR Vancomycin HCl 0 ml @ 0 mls/hr UD IV 04/24/25 00:45 Vancomycin HCl 250 ml @ 250 mls/hr DAILY@1800 IV 04/26/25 18:15 04/27/25 18:03 250 MLS/HR Enteral Nutritional Formula 1,000 ml 60ML/HR GT 04/27/25 13:00 04/27/25 14:34 1,000 ML Norepinephrine Bitartrate 32 mg/ Sodium Chloride 250 ml @ 0.938 mls/ hr Q24H IV 04/27/25 15:15 04/27/25 15:00 0.938 MLS/HR Pantoprazole Sodium 40 mg DAILY IV 04/28/25 10:00 04/28/25 09:39 40 MG Lactulose 30 ml BID PO 04/28/25 10:00 04/28/25 09:40 30 ML Examination General Appearance: intubated, RR 20 TV 400 PEEP 5 FIO2 30 HEENT: Atraumatic, PERRLA, EOMI, Mucous membr. moist/pink, jugular distention, bruise, no hematoma no bleeding Respiratory: Bilateral basal crackles Cardiovascular: Tachycardic Abdominal: Normal bowel sounds, Soft, No tenderness, No hepatospenomegaly, No masses Extremities: Edema 2+, femoral catheter with no bleeding Skin: No rashes, No breakdown, No significant lesion laboratory and microbiology Laboratory Tests 04/28/25 03:19 Test 04/28/25 03:19 Range/Units Serum Glucose 205 H 74-106 mg/dL Microbiology Date/Time Source Procedure Growth Status 04/24/25 01:45 Blood Blood Culture - Preliminary NO GROWTH AFTER 72 HOURS OF INCUBATION. Resulted 04/23/25 21:00 Sputum Expectorated Sputum Gram Stain - Final Complete 04/23/25 21:00 Respiratory Culture - Final Klebsiella pneumoniae Complete 04/23/25 19:00 Voided Urine Urine Culture - Final Complete 04/23/25 17:00 Nose MRSA Screen - Final Complete Problem List/Assessment/Plan Problem List/Assessment/Plan Neurologic #Acute metabolic encephalopathy due to hypercapnic respiratory failure Patient is on the ventilator RASS -3 Fentanyl and versed infusion on Cardiovascular #Acute exacerbation of heart failure with possible reduced ejection fraction #Septic shock Furosemide iv 40 mg daily ECHO EF 25%: severe dilated cavities, patient will have C tomorrow Cardiology on board Hold on GDMT due to shock will be started after stabilization off presors #New onset atrial flutter 2-1 AV conduction with RVR resolved Previously on digoxin, dc by cardiology due to low HR DC anticoagulation #Hypertensive emergency resolved #sp CVC removal from right brachiocephalic/subclavian artery hb stable, patient is having a bruise, no hematoma Respiratory #Septic shock #Acute respiratory failure due to COPD exacerbation and heart failure #s/p mechanical ventilation #Respiratory alkalosis #Bilateral pleural effusions L>R at admission Thoracentesis done 1.3 LT drained #pneumonia gram+/ gram - due to klebsiella pneumoniae #Severe respiratory acidosis resolved intubated, RR 20 TV 400 PEEP 5 FIO2 30 ph 7.52 pco2 35 po2 64 hco3 28.5 no cpap trial for now Vancomycin + Zosyn Solumedrol BID xray: left pleural effusion, thoracentesis ordered Endocrinology #DM type 2, hba1c 6.7 ISS, mild Renal #Hyperkalemia, resolved #BAO due to VMN resolved IV insulin and furosemide given GI tube feedings: NPO after midnight #Mild Hyperbillirubinemia, resolved #Constipation resolved lactulose due to constipation Hem/onc #Thrombocytopenia: monitor, dc heparin yesterday Lines: right femoral placed 04/23/25 intubation 04/23/25 kenney catheter 04/23/[address] Corrales Full code Time spent on critical care 66 min excluding procedures and including discussion with family No DVT prophylaxis for now PUD prophylaxis: protonix IV Plan discussed with: Spouse, Other (rn) My Orders My Orders Orders - MIS REYEZ RESIDENT Procedure Category Date Status Time Chest Xray 1 View XY 04/28/25 Resulted 04:00 Abg W/ Co-Ox RT 04/28/25 Logged 04:00 Lactulose Oral PHA 04/28/25 In Process 10:00 Chest Xray 1 View XY 04/28/25 Resulted 12:45 Abg W/ Co-Ox RT 04/29/25 Logged 04:00 Chest Xray 1 View XY 04/29/25 Logged 04:00 Comprehensive LAB 04/29/25 Verified Metabolic Panel 04:00 Npo After Midnight AV 04/28/25 Verified 18:03 Npo (Nothing By DIET 04/29/25 Verified Mouth) Diet Breakfast Dietary Evaluation Review Comments: Nutrition Recommendation: 1. TF Vital AF 1.2 Luis Enrique @ 60 ml/hr. start @ 20ml/hr, increase 10ml/hr Q4H until goal is reached. TF at goal volume provides 100% energy & protein needs - 1728 kcal, 108 gm protein, 1168 ml free water 2. Water flush 140ml Q6H if allowed 3. TPN if NPO> 7 days Expected Outcomes/Goals: To meet >75% estimated needs Fu 2-3 days Date of Service: Apr 28, 2025 Billing Provider: PAMELA CORRALES MD Common Visit Codes: [id number] CARE 30-74 MIN MIS REYEZ RESIDENT Apr 28, 2025 18:13 PAMELA CORRALES MD Apr 29, 2025 15:25
[2025-04-29] VITALS (103 sets, daily range): BP systolic 95–143; BP diastolic 57–93; PULSE 61–94; RESP 18–25; TEMP 96.5–98.8; O2SAT 100
[2025-04-29 04:24] LABS: Hematocrit 50.3 % (41.0-53.0); Hemoglobin 16.4 g/dL (13.5-17.5); Mean Corpuscular Hemoglobin 29.6 pg (28.0-32.0); Mean Corpuscular Volume 90.7 fL (80.0-100.0); Nucleated Red Blood Cells % 0.1 %
--- NOTE | 2025-04-29 04:24 | DVH ---
CHEST RADIOGRAPH Indication: mechanical vent Technique: Single frontal view of the chest was obtained COMPARISON: XY CHEST XRAY 1 VIEW on DOS: 04/28/25, XY CHEST XRAY 1 VIEW on DOS: 04/28/25, XY CHEST PORTAB LE on DOS: 04/27/25, XY CHEST PORTABLE on DOS: 04/26/25, XY CHEST PORTABLE on DOS: 04/26/25 FINDINGS: Lines and Tubes: Unchanged. Lungs: Interval decrease in right basilar pulmonary airspace disease with small residual right pleura l effusion. No pneumothorax. Cardiomediastinal contours: Unremarkable Bones: Unremarkable IMPRESSION: 1. Interval decrease in right basilar pulmonary airspace disease. Small residual right pleural effus ion. 2. Lines and tubes unchanged.
[2025-04-29 04:33] LABS: Alanine Aminotransferase 30 U/L (7-40); Alkaline Phosphatase 47 U/L (46-116); Anion Gap 10 (5-15); BUN/Creatinine Ratio 27.2 (10.0-20.0); Carbon Dioxide 30 mmol/L (20-31); Chloride 104 mmol/L (98-107); Magnesium 2.4 mg/dL (1.6-2.6); Potassium 3.9 mmol/L (3.5-5.1); Sodium 144 mmol/L (136-145)
[2025-04-29 04:34] LABS: Bilirubin, Total 1.1 mg/dL (0.2-1.0)
[2025-04-29 04:42] LABS: Albumin 3.0 g/dL (3.2-4.8); Blood Urea Nitrogen 28 mg/dL (9-23); Calcium 7.6 mg/dL (8.7-10.4); Glucose 162 mg/dL (74-106); Total Protein 5.3 g/dL (5.7-8.2)
[2025-04-29 04:47] LABS: INR 1.25 (0.9-1.15); Partial Thromboplastin Time 32.2 SEC (24.5-34.5); Prothrombin Time 13.0 sec (9.3-11.8)
[2025-04-29 08:05] LABS: Base Excess 3.6 mmol/L (-2.0-3.0)
[2025-04-29 13:07] LABS: Glucose, Body Fluid 213.0 mg/dL (.); LD, Body Fluid 179.0 IU/L (.)
[2025-04-29] MEDS: IODIXANOL 320MG/ML 100ML BTL IV ONE ×2 (14:14→15:19)
[2025-04-29] MEDS: HEPARIN IN NS 1000Units/500mL 0 ML ONE (14:15)
[2025-04-29] MEDS: VERAPAMIL 2.5MG/ML INJ 2ML VIAL IV ONE (15:37)
[2025-04-29] MEDS: HEPARIN SODIUM (PORCINE) 5000 UNITS/ML 1ML VIAL ONE (15:37)
[2025-04-29] MEDS: LIDOCAINE 2%HCL (LOCAL ANESTH.) INJ 20ML MDV ONE (16:07)
--- NOTE | 2025-04-29 16:18 | DVHOP2 ---
Operative Report - 2 Report Details Date: 04/29/25 Preop Diagnosis: Coronary artery disease Postop Diagnosis: Cardiomyopathy Surgeon: Holly Mercado MD Anesthesiologist: Conscious sedation Anesthesia: Mac, Local Consent: The patient was informed of the risks and benefits of the procedure. These include but are not limited to complications of anesthesia, postoperative infection, incomplete relief of symptoms, recurrence of symptoms, damage to blood vessels, nerves and tendons, deep venous thrombosis, pulmonary embolism and possible need for repeat surgery in the future. Complications: No complications Findings: Cardiomyopathy Indications for Surgery: Cardiomyopathy Name of Procedure Performed Bilateral cine coronary angiography. Procedure Details Procedure Details: Prior local anesthesia with 2% lidocaine to the left groin and full informed consent obtained the patient was prepped and draped in usual fashion followed by placement of a six Omani sheath. Six O[place]i [place] catheter was used to cannulate both right and left coronary ostia. A pigtail catheter evaluation of the left ventricle was not performed. Hemodynamics aortic blood pressure was 130/70. End-diastolic pressure was not measured. Coronary anatomy: The RCA is a large vessel it is normal in its proximal mid and distal segments. The PDA and posterolateral branches are normal. Left main is large and normal. Left anterior descending is large and normal. Two diagonals free of significant disease. The circumflex is large with two marginals free of significant disease. Ventriculography not performed. Impression: Normal coronary arteries. No significant CAD. Recommendations: Continue risk factor modifications. Initiate therapy for CHF and guideline medical therapy for cardiomyopathy. Condition Guarded Disposition Still a Patient Date of Service: Apr 29, 2025 Billing Provider: HOLLY MERCADO Sr., MD Cardiology Common Codes: [id number] INP/OBS CARE (High) Cardiology Procedure Codes: 44329-[id number] ADD COR ART/BRNCH/GRFT HOLLY MERCADO Sr., MD Apr 29, 2025 16:18
--- NOTE | 2025-04-29 23:55 | DVHPNRES ---
Progress Note Date Seen: Apr 29, 2025 Resident Creating Document: MIS REYEZ RESIDENT Has the PT tested + for MRSA If YES, has PT been informed?: No Medical Necessity Reason Pt with a Central, PICC or Fol: Yes The following are medically ne: Kenney Catheter Reason for kenney catheter: Strict I&O Subjective Review of Systems Mr. Farley is a 79-year-old male who presents with a chief complaint of bilateral leg swelling. He reports a chronic history of leg swelling, previously managed with a medication obtained from [place], the name of which he cannot recall. He admits to not taking this medication for some time. The patient is a poor historian but endorses a past medical history of diabetes mellitus (DM), hypertension (HTN), and an unspecified "heart issue." He denies any recent chest pain, shortness of breath, or dizziness. On triage, his blood pressure was markedly elevated at 180/116 mmHg with a pulse of 140 bpm. Given his history and current presentation, differential diagnoses include fluid retention possibly due to cardiac or renal insufficiency, medication noncompliance, electrolyte imbalance, and other systemic causes. Past Medical History diabetes mellitus (DM), hypertension (HTN), and an unspecified "heart issue." Past Surgical History none Family History: None (Noncontributory) Smoke: No ALCOHOL: none Drugs: None Lives: with Family Domestic Violence: Neg 04/23/25: patient was found with high oxygen requirements, respiratory acidosis, BIPAP was placed, POCUS at bedside possible reduced ejection fraction and hypokinesis, patient is having acute respiratory failure due to acute exacerbation of heart failure and COPD, antibiotics and solumedrol were started, mild hypokalemia was resolved with IV insulin 10 ui and furosemide, patient still has HR above 130, carvedilol is added, patient is MARIELENA status 04/24/25: during the night of 04/23/25, patient started to be more hypercapnic and drowsy, not responding to BIPAP, so talking with bhavani family the decision was to intubate, also patient started to be hypotensive with the need of vasopressors, central line was attempted to be placed on right yugular vein but the catheter is found to be entering through the brachiocephalic (innominate) artery with its tip residing in the Aortic arch, AngioCT scan STAT confirmed the findings, general surgery was consulted who advice endovascular stent placement to span the defect in the artery by means of transfemoral arteriography done by Interventional Radiologist, the removal of the catheter was done successfully by Dr José ARZOLA (formal radiological report pending) , right now we are going to f/u hb and bed rest, family was informed about the interventions, consent forms were signed, at the moment on fentanyl and versed drip, levophed 7 mcg, ABG after procedure ph 7.47 pco2 38 po2 69.6 hco3 27.8 ,continue monitor 04/27/25: During the weekend, no bleeding from the puncture site, patient is being on afib, levophed was wean off and phenylephrine was started, also digoxin was on, low dose heparin was started due to high chadvasc. Also sedation vacation was done, but today at 4 am patient started to be agitated. His platelets are 129. Cardiology today, they changed digoxin to amiodarone. Anticoagulation was DC, he will benefit for cath due to EF 25% , possible on sunday, Lipid panel normal. 04/28/25: amiodarone dc by cardiology, off pressors, thoracentesis done, 1.3 LT drained, klebsiella positive in sputum, LHC tomorrow 04/29/25: off pressors, HR in the 70s, patient was slightly agitated, sedation was increased, vanco dc, [facility] with normal coronaries Objective vital signs Vital Sign Date Time Temp Pulse Resp B/P (MAP) Pulse Ox O2 Delivery O2 Flow Rate FiO2 04/29/25 23:49 73 20 111/66 (81) 100 30 04/29/25 22:00 Mechanical Ventilator+ 0 04/29/25 20:00 97.5 97.5 Total Intake and Output 04/28/25 04/28/25 04/29/25 15:00 23:00 07:00 Intake Total 300.98 ml 770 ml 334 ml Output Total 450 ml 550 ml Balance 300.98 ml 320 ml -216 ml medications Current Medications Medications Dose Ordered Sig/Jose Alfredo Route Start Time Stop Time Status Last Admin Dose Admin Acetaminophen 650 mg Q6HP PRN PO 04/23/25 05:00 Furosemide 40 mg DAILY IV 04/23/25 10:00 04/29/25 09:53 40 MG Methylprednisolone Sodium Succinate 40 mg BID IV 04/23/25 11:00 04/29/25 21:42 40 MG Diagnostic Test (Pha) 1 strip Q6HR 04/23/25 18:00 04/29/25 18:19 1 STRIP Insulin Human Regular Q6HR SC 04/23/25 18:00 04/29/25 18:20 3 UNITS Dextrose 50 ml UD PRN IV 04/23/25 15:30 Propofol 100 ml @ 2.268 mls/ hr Q24H IV 04/23/25 20:45 04/23/25 21:00 2.268 MLS/HR Fentanyl Citrate 250 ml @ 2.5 mls/hr Q24H IV 04/23/25 20:45 04/29/25 15:00 20 MLS/HR Midazolam HCl 50 ml @ 1 mls/hr Q24H IV 04/23/25 23:15 04/29/25 18:29 5 MLS/HR Piperacillin Sod/ Tazobactam Sod 100 ml @ 25 mls/hr Q8HR IV 04/24/25 06:00 04/29/25 21:42 25 MLS/HR Enteral Nutritional Formula 1,000 ml 60ML/HR GT 04/27/25 13:00 04/27/25 14:34 1,000 ML Norepinephrine Bitartrate 32 mg/ Sodium Chloride 250 ml @ 0.938 mls/ hr Q24H IV 04/27/25 15:15 04/27/25 15:00 0.938 MLS/HR Pantoprazole Sodium 40 mg DAILY IV 04/28/25 10:00 04/29/25 09:52 40 MG Lactulose 30 ml BID PO 04/28/25 10:00 04/28/25 21:44 30 ML Examination General Appearance: intubated, RR 20 TV 450 PEEP 5 FIO2 30 HEENT: Atraumatic, PERRLA, EOMI, Mucous membr. moist/pink, improving jugular distention, bruise, no hematoma no bleeding Respiratory: Bilateral basal crackles Cardiovascular: arrhythmic Abdominal: Normal bowel sounds, Soft, No tenderness, No hepatospenomegaly, No masses Extremities: Edema 2+, femoral catheter with no bleeding Skin: No rashes, No breakdown, No significant lesion laboratory and microbiology Laboratory Tests 04/29/25 17:08 04/29/25 03:38 Test 04/29/25 03:38 Range/Units Serum Glucose 162 H 74-106 mg/dL Microbiology Date/Time Source Procedure Growth Status 04/28/25 12:55 Pleural Fluid Gram Stain - Final Resulted 04/28/25 12:55 Pleural Fluid Aerobic Culture - Preliminary Resulted 04/24/25 01:45 Blood Blood Culture - Final NO GROWTH AFTER 5 DAYS OF INCUBATION. Complete 04/23/25 21:00 Sputum Expectorated Sputum Gram Stain - Final Complete 04/23/25 21:00 Respiratory Culture - Final Klebsiella pneumoniae Complete 04/23/25 19:00 Voided Urine Urine Culture - Final Complete 04/23/25 17:00 Nose MRSA Screen - Final Complete Problem List/Assessment/Plan Problem List/Assessment/Plan Neurologic #Acute metabolic encephalopathy due to hypercapnic respiratory failure Patient is on the ventilator RASS -3 Fentanyl and versed infusion on, mild agitation in the morning Cardiovascular #Acute exacerbation of heart failure with possible reduced ejection fraction #Septic shock Furosemide iv 40 mg daily ECHO EF 25%: severe dilated cavities, LHC no significant CAD Cardiology on board Hold on GDMT due to shock will be started after stabilization off presors #New onset atrial flutter 2-1 AV conduction with RVR resolved Previously on digoxin, dc by cardiology due to low HR DC anticoagulation #Hypertensive emergency resolved #sp CVC removal from right brachiocephalic/subclavian artery hb stable, patient is having a bruise, no hematoma Respiratory #Septic shock #Acute respiratory failure due to COPD exacerbation and heart failure #s/p mechanical ventilation #Respiratory alkalosis #Bilateral pleural effusions L>R at admission: likely parapneumonic Thoracentesis done 1.3 LT drained: exudate #pneumonia gram+/ gram - due to klebsiella pneumoniae #Severe respiratory acidosis resolved intubated, RR 20 TV 460 PEEP 5 FIO2 30 ph 7.47 pco2 38 po2 79 hco3 27.2 no cpap trial for now Zosyn Solumedrol BID xray: left pleural effusion, thoracentesis ordered Endocrinology #DM type 2, hba1c 6.7 ISS, mild Renal #Hyperkalemia, resolved #BAO due to VMN resolved IV insulin and furosemide given GI tube feedings: resume feedings #Mild Hyperbillirubinemia, resolved #Constipation resolved lactulose due to constipation Hem/onc #Thrombocytopenia: monitor, 129 --> 102 Lines: right femoral placed 04/23/25 intubation 04/23/25 kenney catheter 04/23/[address] Corrales Full code Time spent on critical care 81 min excluding procedures and including discussion with family No DVT prophylaxis for now PUD prophylaxis: protonix IV Plan discussed with: Spouse, Daughter, Other (rn) My Orders My Orders Orders - MIS REYEZ RESIDENT Procedure Category Date Status Time Lactate Dehydrogenase LAB 04/29/25 In Process 08:59 Complete Blood Count LAB 04/30/25 Verified 04:00 Chest Xray 1 View XY 04/29/25 Logged 23:46 Abg W/ Co-Ox RT 04/30/25 Logged 04:00 Dietary Evaluation Review Comments: Nutrition Recommendation: 1. TF Vital AF 1.2 Luis Enrique @ 60 ml/hr. start @ 20ml/hr, increase 10ml/hr Q4H until goal is reached. TF at goal volume provides 100% energy & protein needs - 1728 kcal, 108 gm protein, 1168 ml free water 2. Water flush 140ml Q6H if allowed 3. TPN if NPO> 7 days Expected Outcomes/Goals: To meet >75% estimated needs Fu 2-3 days Date of Service: Apr 29, 2025 Billing Provider: PAMELA CORRALES MD Common Visit Codes: [id number] CARE 30-74 MIN, [id number] CARE-EACH +30MIN MIS REYEZ Apr 29, 2025 23:55 PAMELA CORRALES MD May 04, 2025 16:22
[2025-04-30] VITALS (104 sets, daily range): BP systolic 89–136; BP diastolic 56–88; PULSE 64–95; RESP 8–21; TEMP 97.5–98.2; O2SAT 96–100
[2025-04-30 04:00] LABS: Hematocrit 50.4 % (41.0-53.0); Hemoglobin 16.7 g/dL (13.5-17.5); Mean Corpuscular Hemoglobin 29.8 pg (28.0-32.0); Mean Corpuscular Volume 90.1 fL (80.0-100.0); Nucleated Red Blood Cells % 0.3 %
[2025-04-30 04:12] LABS: Alanine Aminotransferase 28 U/L (7-40); Alkaline Phosphatase 48 U/L (46-116); Anion Gap 10 (5-15); BUN/Creatinine Ratio 28.9 (10.0-20.0); Carbon Dioxide 30 mmol/L (20-31); Chloride 103 mmol/L (98-107); Potassium 3.9 mmol/L (3.5-5.1); Sodium 143 mmol/L (136-145)
[2025-04-30 04:26] LABS: Albumin 3.0 g/dL (3.2-4.8); Bilirubin, Total 1.8 mg/dL (0.2-1.0); Blood Urea Nitrogen 28 mg/dL (9-23); Calcium 7.5 mg/dL (8.7-10.4); Glucose 160 mg/dL (74-106); Total Protein 5.2 g/dL (5.7-8.2)
--- NOTE | 2025-04-30 05:33 | DVH ---
CHEST RADIOGRAPH Indication: pneumonia Technique: Single frontal view of the chest was obtained COMPARISON: XY CHEST XRAY 1 VIEW on DOS: 04/29/25, XY CHEST XRAY 1 VIEW on DOS: 04/28/25, XY CHEST XRAY 1 VIEW on DOS: 04/28/25, XY CHEST PORTABLE on DOS: 04/27/25, XY CHEST PORTABLE on DOS: 04/26/25 FINDINGS: Lines and Tubes: Endotracheal tube and enteric catheter in satisfactory position. Lungs: Right lower lobe airspace disease Pleura: No effusion. No pneumothorax. Cardiomediastinal contours: Unremarkable Bones: Unremarkable IMPRESSION: Lines and tubes in satisfactory position. No significant interval change.
[2025-04-30 09:23] LABS: Base Excess 3.8 mmol/L (-2.0-3.0)
--- NOTE | 2025-04-30 17:46 | DVHPN2 ---
Consult Progress Note Subjective Other Systems: Patient in atrial fibrillation with controlled rate at time of assessment Episodes of A-flutter seen on cardiac event monitor Objective vital signs Vital Sign Date Time Temp Pulse Resp B/P (MAP) Pulse Ox O2 Delivery O2 Flow Rate FiO2 04/30/25 16:20 80 20 130/81 (97) 100 04/30/25 16:00 97.5 97.5 04/30/25 16:00 30 04/30/25 16:00 Mechanical Ventilator+ 0 Total Intake and Output 04/29/25 04/29/25 04/30/25 15:00 23:00 07:00 Intake Total 321 ml 218.0 ml 351.0 ml Output Total 2650 ml 450 ml Balance 321 ml -2432.0 ml -99.0 ml medications Current Medications Medications Dose Ordered Sig/Jose Alfredo Route Start Time Stop Time Status Last Admin Dose Admin Acetaminophen 650 mg Q6HP PRN PO 04/23/25 05:00 Furosemide 40 mg DAILY IV 04/23/25 10:00 04/30/25 09:35 40 MG Methylprednisolone Sodium Succinate 40 mg BID IV 04/23/25 11:00 04/30/25 09:35 40 MG Diagnostic Test (Pha) 1 strip Q6HR 04/23/25 18:00 04/30/25 11:52 1 STRIP Insulin Human Regular Q6HR SC 04/23/25 18:00 04/30/25 11:53 2 UNITS Dextrose 50 ml UD PRN IV 04/23/25 15:30 Propofol 100 ml @ 2.268 mls/ hr Q24H IV 04/23/25 20:45 04/23/25 21:00 2.268 MLS/HR Fentanyl Citrate 250 ml @ 2.5 mls/hr Q24H IV 04/23/25 20:45 04/30/25 16:33 17.5 MLS/HR Midazolam HCl 50 ml @ 1 mls/hr Q24H IV 04/23/25 23:15 04/30/25 07:23 4 MLS/HR Piperacillin Sod/ Tazobactam Sod 100 ml @ 25 mls/hr Q8HR IV 04/24/25 06:00 04/30/25 13:52 25 MLS/HR Enteral Nutritional Formula 1,000 ml 60ML/HR GT 04/27/25 13:00 04/30/25 16:17 1,000 ML Norepinephrine Bitartrate 32 mg/ Sodium Chloride 250 ml @ 0.938 mls/ hr Q24H IV 04/27/25 15:15 04/27/25 15:00 0.938 MLS/HR Pantoprazole Sodium 40 mg DAILY IV 04/28/25 10:00 04/30/25 09:35 40 MG Lactulose 30 ml BID PO 04/28/25 10:00 04/30/25 09:35 30 ML Examination: GENERAL:Abnormal, LUNGS:Abnormal (Mechanically ventilated), CVS:Normal, NEURO:Abnormal (Chemically sedated) laboratory and microbiology Laboratory Tests 04/30/25 03:26 Test 04/30/25 03:26 Range/Units Serum Glucose 160 H 74-106 mg/dL Problem List/Assessment/Plan Problem List/Assessment/Plan 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 Mercado) * Transthoracic echocardiogram with EF 25%, dilated cardiomyopathy * Preload reduction. Initiate GDMT for HFrEF with stable BP * Strict intake and output, daily weights, maintain fluid restriction * Therapeutic Lovenox held due to borderline thrombocytopenia. SCDs in the meantime. Transition to DOAC therapy when appropriate * [id number] Score 5 points. HAS-BLED Score 1 point * Replete electrolytes as necessary, K>4 and Mg>2 * Monitor ECG changes closely and notify The patient underwent a cardiac catheterization and coronary angiogram with Dr. Mercado on 04/29/2025 which revealed no significant coronary artery disease. The patient is now off of vasopressor therapy. We will recommend to slowly initiate guideline directed medical therapy for CHF as tolerated. The patient may qualify for ICD implantation if no improvement in EF within 3-6 months on full (uninterrupted) guideline directed medical therapy for CHF. There is no further inpatient cardiac workup indicated at this time. Please feel free to reconsult if needed. Thank you for allowing us to care for this patient. Please call with any questions or concerns. Critical care time spent: 30 minutes. This medical document was created using an electronic medical record system with voice recognition software and computerized dictation system. Although this document has been carefully reviewed, there might still be some phonetic and typographical errors. Occasional wrong-word or ``sound-alike substitutions may have occurred due to the inherent limitations of voice recognition software. These areas are purely typographical due to imperfections of the software programs and do not reflect any compromise in the patient's medical care. Please read the chart carefully and recognize, using context, where these substitutions have occurred. Plan discussed with: Other Dietary Evaluation Review Comments: Nutrition Recommendation: 1. TF Vital AF 1.2 Luis Enrique @ 60 ml/hr. start @ 20ml/hr, increase 10ml/hr Q4H until goal is reached. TF at goal volume provides 100% energy & protein needs - 1728 kcal, 108 gm protein, 1168 ml free water 2. Water flush 140ml Q6H if allowed 3. TPN if NPO> 7 days Expected Outcomes/Goals: To meet >75% estimated needs Fu 2-3 days Date of Service: Apr 30, 2025 Billing Provider: HOLLY MERCADO Sr., MD Common Visit Codes: [id number] CARE 30-74 MIN BREE DEVLIN Apr 30, 2025 17:46
[2025-04-30] MEDS: DEXMEDETOMIDINE HCL IN D5W 100 ML IV SCH (18:15)
--- NOTE | 2025-04-30 18:30 | DVHPNRES ---
Progress Note Date Seen: Apr 30, 2025 Resident Creating Document: MIS REYEZ RESIDENT Has the PT tested + for MRSA If YES, has PT been informed?: No Medical Necessity Reason Pt with a Central, PICC or Fol: Yes The following are medically ne: Kenney Catheter Reason for kenney catheter: Strict I&O Subjective Review of Systems Mr. Farley is a 79-year-old male who presents with a chief complaint of bilateral leg swelling. He reports a chronic history of leg swelling, previously managed with a medication obtained from [place], the name of which he cannot recall. He admits to not taking this medication for some time. The patient is a poor historian but endorses a past medical history of diabetes mellitus (DM), hypertension (HTN), and an unspecified "heart issue." He denies any recent chest pain, shortness of breath, or dizziness. On triage, his blood pressure was markedly elevated at 180/116 mmHg with a pulse of 140 bpm. Given his history and current presentation, differential diagnoses include fluid retention possibly due to cardiac or renal insufficiency, medication noncompliance, electrolyte imbalance, and other systemic causes. Past Medical History diabetes mellitus (DM), hypertension (HTN), and an unspecified "heart issue." Past Surgical History none Family History: None (Noncontributory) Smoke: No ALCOHOL: none Drugs: None Lives: with Family Domestic Violence: Neg 04/23/25: patient was found with high oxygen requirements, respiratory acidosis, BIPAP was placed, POCUS at bedside possible reduced ejection fraction and hypokinesis, patient is having acute respiratory failure due to acute exacerbation of heart failure and COPD, antibiotics and solumedrol were started, mild hypokalemia was resolved with IV insulin 10 ui and furosemide, patient still has HR above 130, carvedilol is added, patient is MARIELENA status 04/24/25: during the night of 04/23/25, patient started to be more hypercapnic and drowsy, not responding to BIPAP, so talking with bhavani family the decision was to intubate, also patient started to be hypotensive with the need of vasopressors, central line was attempted to be placed on right yugular vein but the catheter is found to be entering through the brachiocephalic (innominate) artery with its tip residing in the Aortic arch, AngioCT scan STAT confirmed the findings, general surgery was consulted who advice endovascular stent placement to span the defect in the artery by means of transfemoral arteriography done by Interventional Radiologist, the removal of the catheter was done successfully by Dr José ARZOLA (formal radiological report pending) , right now we are going to f/u hb and bed rest, family was informed about the interventions, consent forms were signed, at the moment on fentanyl and versed drip, levophed 7 mcg, ABG after procedure ph 7.47 pco2 38 po2 69.6 hco3 27.8 ,continue monitor 04/27/25: During the weekend, no bleeding from the puncture site, patient is being on afib, levophed was wean off and phenylephrine was started, also digoxin was on, low dose heparin was started due to high chadvasc. Also sedation vacation was done, but today at 4 am patient started to be agitated. His platelets are 129. Cardiology today, they changed digoxin to amiodarone. Anticoagulation was DC, he will benefit for cath due to EF 25% , possible on sunday, Lipid panel normal. 04/28/25: amiodarone dc by cardiology, off pressors, thoracentesis done, 1.3 LT drained, klebsiella positive in sputum, [facility] tomorrow 04/29/25: off pressors, HR in the 70s, patient was slightly agitated, sedation was increased, vanco dc, [facility] with normal coronaries 04/30/25: off pressors, patient will benefit from cpap trial, precedex am, dc TLC, PICC line consult, cardiology started jardiance and metoprolol Objective vital signs Vital Sign Date Time Temp Pulse Resp B/P (MAP) Pulse Ox O2 Delivery O2 Flow Rate FiO2 04/30/25 18:20 84 20 120/74 (89) 100 30 04/30/25 18:00 Mechanical Ventilator+ 0 04/30/25 16:00 97.5 97.5 Total Intake and Output 04/29/25 04/29/25 04/30/25 15:00 23:00 07:00 Intake Total 321 ml 218.0 ml 351.0 ml Output Total 2650 ml 450 ml Balance 321 ml -2432.0 ml -99.0 ml medications Current Medications Medications Dose Ordered Sig/Jose Alfredo Route Start Time Stop Time Status Last Admin Dose Admin Acetaminophen 650 mg Q6HP PRN PO 04/23/25 05:00 Furosemide 40 mg DAILY IV 04/23/25 10:00 04/30/25 09:35 40 MG Methylprednisolone Sodium Succinate 40 mg BID IV 04/23/25 11:00 04/30/25 09:35 40 MG Diagnostic Test (Pha) 1 strip Q6HR 04/23/25 18:00 04/30/25 18:20 1 STRIP Insulin Human Regular Q6HR SC 04/23/25 18:00 04/30/25 18:19 3 UNITS Dextrose 50 ml UD PRN IV 04/23/25 15:30 Propofol 100 ml @ 2.268 mls/ hr Q24H IV 04/23/25 20:45 04/23/25 21:00 2.268 MLS/HR Fentanyl Citrate 250 ml @ 2.5 mls/hr Q24H IV 04/23/25 20:45 04/30/25 16:33 17.5 MLS/HR Midazolam HCl 50 ml @ 1 mls/hr Q24H IV 04/23/25 23:15 04/30/25 18:01 4 MLS/HR Piperacillin Sod/ Tazobactam Sod 100 ml @ 25 mls/hr Q8HR IV 04/24/25 06:00 04/30/25 13:52 25 MLS/HR Enteral Nutritional Formula 1,000 ml 60ML/HR GT 04/27/25 13:00 04/30/25 16:17 1,000 ML Norepinephrine Bitartrate 32 mg/ Sodium Chloride 250 ml @ 0.938 mls/ hr Q24H IV 04/27/25 15:15 04/27/25 15:00 0.938 MLS/HR Pantoprazole Sodium 40 mg DAILY IV 04/28/25 10:00 04/30/25 09:35 40 MG Lactulose 30 ml BID PO 04/28/25 10:00 04/30/25 09:35 30 ML Empaglifozin 10 mg DAILY PO 05/01/25 10:00 Metoprolol Succinate 25 mg DAILY PO 05/01/25 10:00 Examination General Appearance: intubated, RR 20 TV 450 PEEP 5 FIO2 30 HEENT: Atraumatic, PERRLA, EOMI, Mucous membr. moist/pink, improving jugular distention, bruise, no hematoma no bleeding Respiratory: Bilateral basal crackles Cardiovascular: arrhythmic Abdominal: Normal bowel sounds, Soft, No tenderness, No hepatospenomegaly, No masses Extremities: Edema 2+, femoral catheter with no bleeding Skin: No rashes, No breakdown, No significant lesion laboratory and microbiology Laboratory Tests 04/30/25 03:26 Test 04/30/25 03:26 Range/Units Serum Glucose 160 H 74-106 mg/dL Microbiology Date/Time Source Procedure Growth Status 04/28/25 12:55 Pleural Fluid Gram Stain - Final Resulted 04/28/25 12:55 Pleural Fluid Aerobic Culture - Preliminary Resulted 04/24/25 01:45 Blood Blood Culture - Final NO GROWTH AFTER 5 DAYS OF INCUBATION. Complete 04/23/25 21:00 Sputum Expectorated Sputum Gram Stain - Final Complete 04/23/25 21:00 Respiratory Culture - Final Klebsiella pneumoniae Complete 04/23/25 19:00 Voided Urine Urine Culture - Final Complete 04/23/25 17:00 Nose MRSA Screen - Final Complete Problem List/Assessment/Plan Problem List/Assessment/Plan Neurologic #Acute metabolic encephalopathy due to hypercapnic respiratory failure Patient is on the ventilator RASS -3 Fentanyl and versed infusion on, titrate down, start precedex am Cardiovascular #Acute exacerbation of heart failure with possible reduced ejection fraction #Septic shock Furosemide iv 40 mg daily ECHO EF 25%: severe dilated cavities, LHC no significant CAD Cardiology on board GDMT: jardiance 10 mg metoprolol 25 mg PO off presors #New onset atrial flutter 2-1 AV conduction with RVR resolved Previously on digoxin, dc by cardiology due to low HR DC anticoagulation #Hypertensive emergency resolved #sp CVC removal from right brachiocephalic/subclavian artery hb stable, patient is having a bruise, no hematoma Respiratory #Septic shock #Acute respiratory failure due to COPD exacerbation and heart failure #s/p mechanical ventilation #Respiratory alkalosis #Bilateral pleural effusions L>R at admission: likely parapneumonic Thoracentesis done 1.3 LT drained: exudate #pneumonia gram+/ gram - due to klebsiella pneumoniae #Severe respiratory acidosis resolved intubated, RR 20 TV 460 PEEP 5 FIO2 30 ph 7.47 pco2 38 po2 79 hco3 27.2 cpap trial tomorrow Zosyn Solumedrol daily xray: right basal opacities Endocrinology #DM type 2, hba1c 6.7 ISS, mild Renal #Hyperkalemia, resolved #BAO due to VMN resolved IV insulin and furosemide given GI tube feedings: resume feedings #Mild Hyperbillirubinemia, resolved #Constipation resolved lactulose due to constipation Hem/onc #Thrombocytopenia: monitor, 129 --> 102 --> 107 improving Lines: right femoral placed 04/23/25, dc intubation 04/23/25 kenney catheter 04/23/[address] Corrales Full code Time spent on critical care 66 min excluding procedures and including discussion with family No DVT prophylaxis for now PUD prophylaxis: protonix IV Plan discussed with: Spouse, Daughter, Other (rn) My Orders My Orders Orders - MIS REYEZ RESIDENT Procedure Category Date Status Time Chest Xray 1 View XY 04/29/25 Resulted 23:46 Abg W/ Co-Ox RT 04/30/25 Logged 04:00 Communication Order ORDERS 04/30/25 Transmitted 08:58 Communication Order ORDERS 04/30/25 Transmitted 18:07 Dexmedetomidine Hcl PHA 04/30/25 In Process In D5w (Precedex) 18:15 D/C Tlc AV 04/30/25 In Process 18:07 Complete Blood Count LAB 05/01/25 Verified 04:00 Comprehensive LAB 05/01/25 Verified Metabolic Panel 04:00 Chest Xray 1 View XY 05/01/25 Logged 04:00 Abg W/ Co-Ox RT 05/01/25 Logged 04:00 Dietary Evaluation Review Comments: Nutrition Recommendation: 1. TF Vital AF 1.2 Luis Enrique @ 60 ml/hr. start @ 20ml/hr, increase 10ml/hr Q4H until goal is reached. TF at goal volume provides 100% energy & protein needs - 1728 kcal, 108 gm protein, 1168 ml free water 2. Water flush 140ml Q6H if allowed 3. TPN if NPO> 7 days Expected Outcomes/Goals: To meet >75% estimated needs Fu 2-3 days Date of Service: Apr 30, 2025 Billing Provider: PAMELA CORRALES MD Common Visit Codes: [id number] CARE 30-74 MIN MIS REYEZ RESIDENT Apr 30, 2025 18:30 PAMELA CORRALES MD May 04, 2025 16:26
[2025-05-01] VITALS (86 sets, daily range): BP systolic 84–172; BP diastolic 45–123; PULSE 56–186; RESP 9–40; TEMP 98.2–99.5; O2SAT 82–100
[2025-05-01 03:35] LABS: Hematocrit 49.1 % (41.0-53.0); Hemoglobin 16.2 g/dL (13.5-17.5); Mean Corpuscular Hemoglobin 29.8 pg (28.0-32.0); Mean Corpuscular Volume 90.4 fL (80.0-100.0); Nucleated Red Blood Cells % 0.1 %
[2025-05-01 03:55] LABS: Alanine Aminotransferase 26 U/L (7-40); Alkaline Phosphatase 47 U/L (46-116); Anion Gap 10 (5-15); BUN/Creatinine Ratio 31.7 (10.0-20.0); Carbon Dioxide 29 mmol/L (20-31); Chloride 105 mmol/L (98-107); Potassium 3.6 mmol/L (3.5-5.1); Sodium 144 mmol/L (136-145)
[2025-05-01 04:07] LABS: Albumin 2.7 g/dL (3.2-4.8); Bilirubin, Total 1.6 mg/dL (0.2-1.0); Blood Urea Nitrogen 33 mg/dL (9-23); Calcium 7.5 mg/dL (8.7-10.4); Glucose 192 mg/dL (74-106); Total Protein 4.9 g/dL (5.7-8.2)
--- NOTE | 2025-05-01 05:01 | DVH ---
CHEST RADIOGRAPH Indication: pneumonia Technique: Single frontal view of the chest was obtained Comparison: XY CHEST XRAY 1 VIEW on DOS: 04/30/25, XY CHEST XRAY 1 VIEW on DOS: 04/29/25, XY CHEST XRAY 1 VIEW on DOS: 04/28/25, XY CHEST XRAY 1 VIEW on DOS: 04/28/25, XY CHEST PORTABLE on DOS: 04/27/25, XY CHES T XRAY 1 VIEW on DOS: 04/30/25 FINDINGS: Lines and Tubes: Endotracheal tube and enteric catheter in satisfactory position. Lungs: Right lower lobe airspace disease Pleura: No effusion. No pneumothorax. Cardiomediastinal contours: Unremarkable Bones: Unremarkable IMPRESSION: Lines and tubes in satisfactory position. No significant interval change.
--- NOTE | 2025-05-01 05:33 | DVH ---
CHEST RADIOGRAPH Indication: ADVANCED THE ET TUBE FROM 24 TO 26CM AT THE LIP BY RT Technique: Single frontal view of the chest was obtained Comparison: XY CHEST XRAY 1 VIEW on DOS: 04/30/25, XY CHEST XRAY 1 VIEW on DOS: 04/30/25, XY CHEST XRAY 1 VIEW on DOS: 04/29/25, XY CHEST XRAY 1 VIEW on DOS: 04/28/25, XY CHEST XRAY 1 VIEW on DOS: 04/28/25, XY CH EST XRAY 1 VIEW on DOS: 04/30/25 FINDINGS: Lines and Tubes: Endotracheal tube and enteric catheter in satisfactory position. Lungs: Right lower lobe airspace disease Pleura: No effusion. No pneumothorax. Cardiomediastinal contours: Unremarkable Bones: Unremarkable IMPRESSION: Lines and tubes in satisfactory position. No significant interval change.
[2025-05-01 06:19] LABS: Base Excess 2.6 mmol/L (-2.0-3.0)
[2025-05-01] MEDS: LIDOCAINE 1% (LOCAL ANESTH.) PF 5ml SDV ID ONE (07:30)
--- NOTE | 2025-05-01 08:03 | DVH ---
EXAM: XY CHEST PORTABLE HISTORY: S/P PICC LINE PLACEMENT. COMPARISON: XY CHEST PORTABLE on DOS: 05/01/25, XY CHEST XRAY 1 VIEW on DOS: 04/30/25, XY CHEST XRAY 1 EW on DOS: 04/30/25, XY CHEST XRAY 1 VIEW on DOS: 04/29/25, XY CHEST XRAY 1 VIEW on DOS: 04/28/25, CT scan of the chest dated 04/23/2025 TECHNIQUE: Portable upright AP view of the chest was performed. FINDINGS: Endotracheal tube is re-identified with its tip 4.3 cm above the kate. OG tube is re-identified wit h its tip at least 8 cm distal to the GE junction. There is a new right upper extremity PICC line wi th its tip in the lower SVC. Emphysematous changes are better characterized on prior CT scan. No pneu mothorax or pulmonary edema. Right basilar infiltrate and small pleural effusion re-identified. There is minimal residual left basilar infiltrate. The heart is enlarged. IMPRESSION: 1. Mechanical ventilation with tubes and lines as above. PICC line in good position. 2. Right basilar infiltrate and effusion, stable. 3. Minimal residual left basilar infiltrate. 4. Emphysema. 5. Cardiomegaly.
[2025-05-01] MEDS: SACUBITRIL-VALSARTAN 24mg/26mg TAB PO SCH (09:24)
[2025-05-01] MEDS: ENOXAPARIN SOD 80 MG/0.8ML SYRINGE SC SCH (09:25)
[2025-05-01] MEDS: methylPREDNISolone SOD SUCC 40 MG/ML VL IV SCH (09:25)
[2025-05-01] MEDS: METOPROLOL SUCCINATE XL 50 MG TAB PO SCH (09:26)
[2025-05-01] MEDS: EMPAGLIFLOZIN 10 MG TAB PO SCH (09:26)
[2025-05-01] MEDS: SODIUM CHLOR 0.9% PF (SALINE LOCK) 10ML VIAL/SYR IV SCH (09:27)
[2025-05-01 13:40] LABS: Base Excess 2.9 mmol/L (-2.0-3.0)
--- NOTE | 2025-05-01 14:06 | DVHPNRES ---
Progress Note Date Seen: May 01, 2025 Resident Creating Document: MIS REYEZ RESIDENT Has the PT tested + for MRSA If YES, has PT been informed?: No Medical Necessity Reason Pt with a Central, PICC or Fol: Yes The following are medically ne: Kenney Catheter Reason for kenney catheter: Strict I&O Subjective Review of Systems Mr. Farley is a 79-year-old male who presents with a chief complaint of bilateral leg swelling. He reports a chronic history of leg swelling, previously managed with a medication obtained from [facility], the name of which he cannot recall. He admits to not taking this medication for some time. The patient is a poor historian but endorses a past medical history of diabetes mellitus (DM), hypertension (HTN), and an unspecified "heart issue." He denies any recent chest pain, shortness of breath, or dizziness. On triage, his blood pressure was markedly elevated at 180/116 mmHg with a pulse of 140 bpm. Given his history and current presentation, differential diagnoses include fluid retention possibly due to cardiac or renal insufficiency, medication noncompliance, electrolyte imbalance, and other systemic causes. Past Medical History diabetes mellitus (DM), hypertension (HTN), and an unspecified "heart issue." Past Surgical History none Family History: None (Noncontributory) Smoke: No ALCOHOL: none Drugs: None Lives: with Family Domestic Violence: Neg 04/23/25: patient was found with high oxygen requirements, respiratory acidosis, BIPAP was placed, POCUS at bedside possible reduced ejection fraction and hypokinesis, patient is having acute respiratory failure due to acute exacerbation of heart failure and COPD, antibiotics and solumedrol were started, mild hypokalemia was resolved with IV insulin 10 ui and furosemide, patient still has HR above 130, carvedilol is added, patient is MARIELENA status 04/24/25: during the night of 04/23/25, patient started to be more hypercapnic and drowsy, not responding to BIPAP, so talking with bhavani family the decision was to intubate, also patient started to be hypotensive with the need of vasopressors, central line was attempted to be placed on right yugular vein but the catheter is found to be entering through the brachiocephalic (innominate) artery with its tip residing in the Aortic arch, AngioCT scan STAT confirmed the findings, general surgery was consulted who advice endovascular stent placement to span the defect in the artery by means of transfemoral arteriography done by Interventional Radiologist, the removal of the catheter was done successfully by Dr José ARZOLA (formal radiological report pending) , right now we are going to f/u hb and bed rest, family was informed about the interventions, consent forms were signed, at the moment on fentanyl and versed drip, levophed 7 mcg, ABG after procedure ph 7.47 pco2 38 po2 69.6 hco3 27.8 ,continue monitor 04/27/25: During the weekend, no bleeding from the puncture site, patient is being on afib, levophed was wean off and phenylephrine was started, also digoxin was on, low dose heparin was started due to high chadvasc. Also sedation vacation was done, but today at 4 am patient started to be agitated. His platelets are 129. Cardiology today, they changed digoxin to amiodarone. Anticoagulation was DC, he will benefit for cath due to EF 25% , possible on sunday, Lipid panel normal. 04/28/25: amiodarone dc by cardiology, off pressors, thoracentesis done, 1.3 LT drained, klebsiella positive in sputum, [facility] tomorrow 04/29/25: off pressors, HR in the 70s, patient was slightly agitated, sedation was increased, vanco dc, [facility] with normal coronaries 04/30/25: off pressors, patient will benefit from cpap trial, precedex am, dc TLC, PICC line consult, cardiology started jardiance and metoprolol 05/01/25: PICC line placed at 7 am, on precedex infusion cpap started at 12: 30 pm ABG: PaFiO2 271, patient had an episode of agitation HR went up to 170s, afib with RVR, amiodarone drip was ordered, but after the agitation episode resolves, HR went down, right now patient is calm, extubated at 2 pm. Objective vital signs Vital Sign Date Time Temp Pulse Resp B/P (MAP) Pulse Ox O2 Delivery O2 Flow Rate FiO2 05/01/25 12:30 110 20 158/92 (114) 100 30 05/01/25 11:15 98.6 98.6 05/01/25 10:00 Mechanical Ventilator+ 0 Total Intake and Output 04/30/25 04/30/2525 15:00 23:00 07:00 Intake Total 228.0 ml 278.0 ml 582.197 ml Output Total 950 ml 450 ml Balance 228.0 ml -672.0 ml 132.197 ml medications Current Medications Medications Dose Ordered Sig/Jose Alfredo Route Start Time Stop Time Status Last Admin Dose Admin Acetaminophen 650 mg Q6HP PRN PO 04/23/25 05:00 Furosemide 40 mg DAILY IV 04/23/25 10:00 05/01/25 09:25 40 MG Diagnostic Test (Pha) 1 strip Q6HR 04/23/25 18:00 05/01/25 05:09 1 STRIP Insulin Human Regular Q6HR SC 04/23/25 18:00 05/01/25 05:13 3 UNITS Dextrose 50 ml UD PRN IV 04/23/25 15:30 Propofol 100 ml @ 2.268 mls/ hr Q24H IV 04/23/25 20:45 05/01/25 04:51 2.268 MLS/HR Fentanyl Citrate 250 ml @ 2.5 mls/hr Q24H IV 04/23/25 20:45 04/30/25 16:33 17.5 MLS/HR Midazolam HCl 50 ml @ 1 mls/hr Q24H IV 04/23/25 23:15 04/30/25 18:01 4 MLS/HR Piperacillin Sod/ Tazobactam Sod 100 ml @ 25 mls/hr Q8HR IV 04/24/25 06:00 05/01/25 04:32 25 MLS/HR Enteral Nutritional Formula 1,000 ml 60ML/HR GT 04/27/25 13:00 04/30/25 16:17 1,000 ML Norepinephrine Bitartrate 32 mg/ Sodium Chloride 250 ml @ 0.938 mls/ hr Q24H IV 04/27/25 15:15 04/27/25 15:00 0.938 MLS/HR Pantoprazole Sodium 40 mg DAILY IV 04/28/25 10:00 05/01/25 09:25 40 MG Lactulose 30 ml BID PO 04/28/25 10:00 05/01/25 09:26 30 ML Empaglifozin 10 mg DAILY PO 05/01/25 10:00 05/01/25 09:26 10 MG Metoprolol Succinate 25 mg DAILY PO 05/01/25 10:00 05/01/25 09:26 25 MG Methylprednisolone Sodium Succinate 40 mg DAILY IV 05/01/25 10:00 05/01/25 09:25 40 MG Sodium Chloride 10 ml QSHIFT@10,22 IV 05/01/25 10:00 05/01/25 09:27 10 ML Sacubitril/ Valsartan 1 tab BID PO 05/01/25 08:00 05/01/25 09:24 1 TAB Enoxaparin Sodium 70 mg Q12HR SC 05/01/25 10:00 05/01/25 09:25 70 MG Examination General Appearance: cpap trial, pressure support 8, peep 5, TV 380 RR 12 RSBI 40 HEENT: Atraumatic, PERRLA, EOMI, Mucous membr. moist/pink, improving jugular distention, bruise, no hematoma no bleeding Respiratory: Bilateral basal crackles Cardiovascular: arrhythmic Abdominal: Normal bowel sounds, Soft, No tenderness, No hepatospenomegaly, No masses Extremities: Edema 2+, PICC line right arm Skin: No rashes, No breakdown, No significant lesion laboratory and microbiology Laboratory Tests 05/01/25 03:00 Test 05/01/25 03:00 Range/Units Serum Glucose 192 H 74-106 mg/dL Microbiology Date/Time Source Procedure Growth Status 04/28/25 12:55 Pleural Fluid Gram Stain - Final Resulted 04/28/25 12:55 Pleural Fluid Aerobic Culture - Preliminary Resulted 04/24/25 01:45 Blood Blood Culture - Final NO GROWTH AFTER 5 DAYS OF INCUBATION. Complete 04/23/25 21:00 Sputum Expectorated Sputum Gram Stain - Final Complete 04/23/25 21:00 Respiratory Culture - Final Klebsiella pneumoniae Complete 04/23/25 19:00 Voided Urine Urine Culture - Final Complete 04/23/25 17:00 Nose MRSA Screen - Final Complete Problem List/Assessment/Plan Problem List/Assessment/Plan Neurologic #Acute metabolic encephalopathy due to hypercapnic respiratory failure Patient is on the ventilator, cpap trial started episode of agitation Cardiovascular #Acute exacerbation of heart failure with possible reduced ejection fraction #Septic shock Furosemide iv 40 mg daily ECHO EF 25%: severe dilated cavities, LHC no significant CAD Cardiology on board GDMT: jardiance 10 mg metoprolol 25 mg PO, entresto 50 BID off presors #New onset atrial flutter 2-1 AV conduction with RVR resolved Previously on digoxin, dc by cardiology due to low HR Enoxaparin #Hypertensive emergency resolved #Hypertensive heart disease with systolic dysfunction entresto 50 BID #sp CVC removal from right brachiocephalic/subclavian artery hb stable, patient is having a bruise, no hematoma Respiratory #Septic shock #Acute respiratory failure due to COPD exacerbation and heart failure #s/p mechanical ventilation #Respiratory alkalosis #Bilateral pleural effusions L>R at admission: likely parapneumonic Thoracentesis done 1.3 LT drained: exudate #pneumonia gram+/ gram - due to klebsiella pneumoniae #Severe respiratory acidosis resolved cpap trial successful, extubated 2 pm ph 7.42 pco2 41.9 po2 81 hco3 27.5 Zosyn Solumedrol daily xray: right basal opacities Endocrinology #DM type 2, hba1c 6.7 ISS, mild Renal #Hyperkalemia, resolved #BAO due to VMN resolved IV insulin and furosemide given GI tube feedings: resume feedings #Mild Hyperbillirubinemia #Constipation resolved lactulose due to constipation Hem/onc #Thrombocytopenia: monitor, 129 --> 102 --> 107 --> 110 improving Lines: PICC line right upper arm 05/01/25 intubation 04/23/25 extubated 05/01/25 kenney catheter 04/23/[address] Tenorio Full code Time spent on critical care 76 min excluding procedures and including discussion with family Enoxaparin 70 mg BID PUD prophylaxis: protonix IV Plan discussed with: Spouse, Daughter, Other My Orders My Orders Orders - MIS REYEZ RESIDENT Procedure Category Date Status Time Communication Order ORDERS 04/30/25 Transmitted 18:07 Dexmedetomidine Hcl PHA 04/30/25 In Process In D5w (Precedex) 18:15 D/C Tlc AV 04/30/25 In Process 18:07 Chest Xray 1 View XY 05/01/25 Resulted 04:00 Abg W/ Co-Ox RT 05/01/25 Logged 04:00 Methylprednisolone PHA 05/01/25 In Process Sod Succ (Solu Medrol 10:00 Chest Portable XY 04/30/25 Resulted 22:08 Nursing Protocol Picc AV 05/01/25 In Process 07:23 Change Dressing Prn AV 05/01/25 In Process 07:23 PICC BD 05/01/25 Transmitted 07:23 Sodium Chloride Lock PHA 05/01/25 In Process (Saline Lock Ns) 10:00 Do Not Use Picc For AV 05/01/25 In Process Blood Cult 07:23 May Draw Blood From AV 05/01/25 In Process Picc 07:23 Chest Portable XY 05/01/25 Resulted 07:23 Ok To Use Picc AV 05/01/25 In Process 07:23 Change Picc Dressing AV 05/01/25 In Process Q7 Days 07:23 Us Guided Vascular US 05/01/25 Logged Access 07:23 Sacubitril-Valsartan PHA 05/01/25 In Process (Entresto 24-26 Mg 08:00 Enoxaparin Sodium PHA 05/01/25 In Process (Lovenox) 10:00 Amiodarone PHA 05/01/25 In Process 360mg/200ml Premix 13:23 Abg W/ Co-Ox RT 05/01/25 Logged 13:35 Dietary Evaluation Review Comments: Nutrition Recommendation: 1. TF Vital AF 1.2 Luis Enrique @ 60 ml/hr. start @ 20ml/hr, increase 10ml/hr Q4H until goal is reached. TF at goal volume provides 100% energy & protein needs - 1728 kcal, 108 gm protein, 1168 ml free water 2. Water flush 140ml Q6H if allowed 3. TPN if NPO> 7 days Expected Outcomes/Goals: To meet >75% estimated needs Fu 2-3 days MIS REYEZ RESIDENT May 01, 2025 14:06
[2025-05-01] MEDS: AMIODARONE 360mg/200mL PREMIX 200 ML IV SCH ×2 (14:24→17:40)
[2025-05-01] MEDS: AMIODARONE 360mg/200mL PREMIX 200 ML IV ONE (15:01)
[2025-05-01] MEDS: AMIODARONE BOLUS KIT 100 ML IV ONE (15:05)
[2025-05-02] VITALS (67 sets, daily range): BP systolic 94–217; BP diastolic 33–99; PULSE 64–131; RESP 12–41; TEMP 98–100.2; O2SAT 89–100
[2025-05-02] MEDS: AMIODARONE HCL 200 MG TAB PO SCH (01:48)
[2025-05-02] MEDS: hydrOXYzine HCL 10 MG TAB PO ONE (02:01)
[2025-05-02 04:17] LABS: Alkaline Phosphatase 64 U/L (46-116); Anion Gap 10 (5-15); BUN/Creatinine Ratio 33.7 (10.0-20.0); Carbon Dioxide 30 mmol/L (20-31); Chloride 105 mmol/L (98-107)
[2025-05-02 04:30] LABS: Alanine Aminotransferase 80 U/L (7-40); Bilirubin, Total 1.7 mg/dL (0.2-1.0); Blood Urea Nitrogen 34 mg/dL (9-23); Calcium 7.8 mg/dL (8.7-10.4); Glucose 150 mg/dL (74-106); Potassium 3.3 mmol/L (3.5-5.1); Sodium 145 mmol/L (136-145); Total Protein 5.5 g/dL (5.7-8.2)
[2025-05-02 04:31] LABS: Albumin 3.1 g/dL (3.2-4.8)
[2025-05-02 04:35] LABS: Hematocrit 48.3 % (41.0-53.0); Hemoglobin 15.6 g/dL (13.5-17.5); Mean Corpuscular Hemoglobin 29.4 pg (28.0-32.0); Mean Corpuscular Volume 91.4 fL (80.0-100.0); Nucleated Red Blood Cells % 0.1 %
[2025-05-02] MEDS: HALOPERIDOL LACTATE 5 MG/ML INJ VIAL IM ONE (05:19)
[2025-05-02] MEDS: HALOPERIDOL LACTATE 5 MG/ML INJ VIAL ONE (05:20)
[2025-05-02] MEDS: ACETAMINOPHEN 325 MG TAB PO PRN (05:49)
--- NOTE | 2025-05-02 06:06 | DVH ---
Exam: US US GUIDED VASCULAR ACCESS Date: 05/01/2025 06:36 AM Clinical History: PICC LINE PLACEMENT Comparison: None Findings: Targeted sonographic evaluation of the basilic vein was obtained utilizing grayscale and color Dopple r imaging. IMPRESSION: Sonographic assistance for central line placement. Please refer to procedural report for detailed fin dings.
--- NOTE | 2025-05-02 06:11 | DVH ---
CHEST RADIOGRAPH Indication: extubation Technique: Single frontal view of the chest was obtained Comparison: XY CHEST PORTABLE on DOS: 05/01/25, XY CHEST PORTABLE on DOS: 05/01/25, XY CHEST XRAY 1 VIEW on DOS: 04/30/25, XY CHEST XRAY 1 VIEW on DOS: 04/30/25, XY CHEST XRAY 1 VIEW on DOS: 04/29/25 FINDINGS: Lines and Tubes: Endotracheal tube removed. Right PICC is unchanged. Nasogastric tube tip in the st omach. Lungs: No focal consolidation. Pleura: No effusion. No pneumothorax. Cardiomediastinal contours: Cardiomegaly. Bones: Unremarkable. IMPRESSION: Cardiomegaly with CHF.
--- NOTE | 2025-05-02 10:30 | DVHPN2 ---
Assessment/Plan Assessment/Plan ICU note 79 M with DM HTN admitted for COPD and HF exacerbation, intubated and placed on mechanical vent, started on pressors, empiric abx and diuretics. now off pressors and extubated. seen today, replete K, agitated, adding Seroquel. pending bedside swallow. physical exam aox2 PERLLA MMM clear breath sounds, however gargling on occasion s1 s2 rrr no murmur abdomen soft no le edema labs ekg imaging reviewed assessment and plan acute metabolic encephalopathy acute systolic heart failure septic shock acute hypoxic hypercapnic RF req mechanical ventilator aflutter HTN emergency s/p CVC removal from r brachiocephalic artery COPD group E with exacerbation HFrEF 25% with exacerbation b/l PLEF klebsiella pneumonia NIDDM BAO resolved slow transit constipation thrombocytopenic c/w NC maintain spo2 90-94% c/w GDMT c/w amio c/w diuresis, goal net neg c/w Zosyn and solumedrol c/w bowel reg c/w lovenox for AC switch IV to po protonix diet cardiac dvt ppx AC full code condition critical prognosis poor 35 minutes critical care time rendered Plan discussed with: Patient My Orders Orders - BLELA JONES MD Procedure Category Date Status Time Potassium Chl Kyle PHA 05/02/25 Transmitted KCL 10:30 Quetiapine Fumarate PHA 05/02/25 Transmitted Tablet (Seroquel Tab 22:00 Basic Metabolic Panel LAB 05/03/25 Verified 04:00 Complete Blood Count LAB 05/03/25 Verified 04:00 Date of Service: May 02, 2025 Billing Provider: BELLA JONES MD Common Visit Codes: [id number] CARE 30-74 MIN BELLA JONES MD May 02, 2025 10:30
[2025-05-02] MEDS: POTASSIUM CHL 20MEQ/100ML 100 ML IV SCH (10:44)
--- NOTE | 2025-05-02 22:40 | DVHPN2 ---
Progress Note - Dictate Date Seen: May 02, 2025 Has the PT tested + for MRSA If YES, has PT been informed?: No Medical Necessity Reason Pt with a Central, PICC or Fol: Yes The following are medically ne: Kenney Catheter Reason for kenney catheter: Strict I&O Subjective Patient seen and examined at bedside. S/p extubation, on supplemental oxygen Overnight events reviewed. vital signs Vital Sign Date Time Temp Pulse Resp B/P (MAP) Pulse Ox O2 Delivery O2 Flow Rate FiO2 05/02/25 21:33 100.2 05/02/25 18:00 83 28 157/69 (98) 93 05/02/25 17:40 Nasal Cannula* 2 28 Total Intake and Output 05/01/25 05/01/25 05/02/25 15:00 23:00 07:00 Intake Total 92.961 ml 2041.606 ml 750 ml Output Total 2500 ml 1102 ml Balance 92.961 ml -458.394 ml -352 ml medications Current Medications Medications Dose Ordered Sig/Jose Alfredo Route Start Time Stop Time Status Last Admin Dose Admin Acetaminophen 650 mg Q6HP PRN PO 04/23/25 05:00 05/02/25 21:33 650 MG Furosemide 40 mg DAILY IV 04/23/25 10:00 05/02/25 07:38 40 MG Diagnostic Test (Pha) 1 strip Q6HR 04/23/25 18:00 05/02/25 17:27 1 STRIP Insulin Human Regular Q6HR SC 04/23/25 18:00 05/02/25 17:33 2 UNITS Dextrose 50 ml UD PRN IV 04/23/25 15:30 Propofol 100 ml @ 2.268 mls/ hr Q24H IV 04/23/25 20:45 05/01/25 04:51 2.268 MLS/HR Fentanyl Citrate 250 ml @ 2.5 mls/hr Q24H IV 04/23/25 20:45 04/30/25 16:33 17.5 MLS/HR Midazolam HCl 50 ml @ 1 mls/hr Q24H IV 04/23/25 23:15 04/30/25 18:01 4 MLS/HR Piperacillin Sod/ Tazobactam Sod 100 ml @ 25 mls/hr Q8HR IV 04/24/25 06:00 05/02/25 21:01 25 MLS/HR Enteral Nutritional Formula 1,000 ml 60ML/HR GT 04/27/25 13:00 04/30/25 16:17 1,000 ML Norepinephrine Bitartrate 32 mg/ Sodium Chloride 250 ml @ 0.938 mls/ hr Q24H IV 04/27/25 15:15 04/27/25 15:00 0.938 MLS/HR Pantoprazole Sodium 40 mg DAILY IV 04/28/25 10:00 05/02/25 07:38 40 MG Lactulose 30 ml BID PO 04/28/25 10:00 05/02/25 21:01 30 ML Empaglifozin 10 mg DAILY PO 05/01/25 10:00 05/02/25 07:36 10 MG Metoprolol Succinate 25 mg DAILY PO 05/01/25 10:00 05/02/25 07:35 25 MG Methylprednisolone Sodium Succinate 40 mg DAILY IV 05/01/25 10:00 05/02/25 07:38 40 MG Sodium Chloride 10 ml QSHIFT@10,22 IV 05/01/25 10:00 05/02/25 21:33 10 ML Sacubitril/ Valsartan 1 tab BID PO 05/01/25 08:00 05/02/25 21:00 1 TAB Enoxaparin Sodium 70 mg Q12HR SC 05/01/25 10:00 05/02/25 21:31 70 MG Amiodarone HCl 200 mg Q12HR PO 05/02/25 02:00 05/02/25 21:01 200 MG Quetiapine Fumarate 50 mg BID PO 05/02/25 22:00 05/02/25 21:01 50 MG objective Gen.: Patient lying in bed in no apparent distress. On supplemental oxygen. Head: Normocephalic, atraumatic. Eyes: EOMI/PERRLA. Ears: Normal hearing. Normal anatomy. Neck/trachea: Trachea midline, supple. Nose: Normal external anatomy. Mouth: Moist mucous membranes. Chest: Decreased air entry bilaterally. No wheezing or rhonchi. Cardiovascular: Positive S1, positive S2. Regular rate and rhythm. Abdomen: Positive bowel sounds in all 4 quadrants. Soft, non-tender, non- distended. : Deferred. Rectal: Deferred. Skin: Warm, dry. Intact. Extremities: 2+ radial pulses bilaterally. No lower extremity edema. Neuro: Awake, alert, altered. No gross motor or sensory deficits. Cranial nerves II through XII intact. Gait not assessed. laboratory and microbiology Laboratory Tests 05/02/25 03:00 Test 05/02/25 03:00 Range/Units Serum Glucose 150 H 74-106 mg/dL Assessment/Plan Impression: Acute hypoxic respiratory failure 2/2 COPD exacerbation Mechanical ventilator, s/p extubation Acute COPD exacerbation Acute CHF exacerbation Acute metabolic encephalopathy Septic shock Lactic acidosis Pleural effusions Atelectasis Obesity Events: Patient tolerated CPAP and was extubated uneventfully yesterday Currently on supplemental oxygen On 2 LPM NC Taper O2 as tolerated CXR reviewed, demonstrates cardiomegaly with CHF. Patient is altered, started Seroquel. Head of bed elevation Aspiration precautions Pending swallow Accu-Cheks, ISS Lovenox SC for DT ppx Diurese with Lasix Monitor renal function Monitor electrolytes. Supplement as necessary. Potassium supplementation Labs and imaging reviewed. Rest of plan as noted below. Plan: S/p extubation on 05/01/25 Supplemental oxygen Titrate to keep O2 sats above 92%. Continue antibiotics. IV steroids Pressors as necessary for hemodynamic support Titrate to keep mean arterial pressure greater than 65 mmHg. Diurese with Lasix Monitor renal function Monitor electrolytes. Supplement as necessary. Monitor ins and outs. Maintain euvolemia. Obesity complicates all care. GI prophylaxis - Protonix DVT prophylaxis - Lovenox SC. Prognosis: Poor given patient's multiple co-morbidities. Rest of plan per hospitalist and other consultants. Thank you, Dr. Serra, for allowing me to participate in this patient's care. Further recommendations will depend on the patient's clinical course. Please do not hesitate to contact me if you have any questions or concerns. This medical document was created using an electronic medical record system with [employer] dictation system. Although these documentations are being carefully reviewed, there may still be some phonetic and typographical changes. The errors are purely typographical, due to imperfection on the software program, and do not reflect any compromise in the patient's medical care. Dietary Evaluation Review Comments: Nutrition Recommendation: 1. TF Vital AF 1.2 Luis Enrique @ 60 ml/hr. start @ 20ml/hr, increase 10ml/hr Q4H until goal is reached. TF at goal volume provides 100% energy & protein needs - 1728 kcal, 108 gm protein, 1168 ml free water 2. Water flush 140ml Q6H if allowed 3. TPN if NPO> 7 days Expected Outcomes/Goals: To meet >75% estimated needs Fu 2-3 days Plan discussed with: Patient, Other (DUDLEY Sena) VITO REDMOND MD May 02, 2025 22:40
[2025-05-03] VITALS (53 sets, daily range): BP systolic 79–161; BP diastolic 18–88; PULSE 57–101; RESP 12–35; TEMP 95.4–100.2; O2SAT 92–100
[2025-05-03] MEDS: CARVEDILOL 12.5 MG TAB PO SCH (00:03)
[2025-05-03 03:34] LABS: Hematocrit 37.9 % (41.0-53.0); Hemoglobin 12.2 g/dL (13.5-17.5); Mean Corpuscular Hemoglobin 29.1 pg (28.0-32.0); Mean Corpuscular Volume 90.4 fL (80.0-100.0); Nucleated Red Blood Cells % 0.0 %
[2025-05-03 03:36] LABS: Potassium 3.7 mmol/L (3.5-5.1)
[2025-05-03 03:37] LABS: Anion Gap 9 (5-15)
[2025-05-03 03:42] LABS: BUN/Creatinine Ratio 34.0 (10.0-20.0)
[2025-05-03 03:45] LABS: Blood Urea Nitrogen 32 mg/dL (9-23); Calcium 7.7 mg/dL (8.7-10.4); Carbon Dioxide 33 mmol/L (20-31); Chloride 109 mmol/L (98-107); Glucose 117 mg/dL (74-106); Sodium 151 mmol/L (136-145)
--- NOTE | 2025-05-03 10:28 | DVHPN2 ---
Assessment/Plan Assessment/Plan ICU note 79 M with DM HTN admitted for COPD and HF exacerbation, intubated and placed on mechanical vent, started on pressors, empiric abx and diuretics. now off pressors and extubated. seen today, bruise on neck expanding, hb drop. sending for CT, start oral feeding, holding lasix for now, increasing GDMT. avoid CCB. CT showed active bleeding, decision to transfer HL for CT/vasc. ss consult placed. trend HH. repeat CT in 48 hr if not yet transfered physical exam aox2 PERLLA MMM clear breath sounds, however gargling on occasion s1 s2 rrr no murmur abdomen soft no le edema labs ekg imaging reviewed assessment and plan acute metabolic encephalopathy acute systolic heart failure septic shock acute hypoxic hypercapnic RF req mechanical ventilator aflutter HTN emergency s/p CVC removal from r brachiocephalic artery COPD group E with exacerbation HFrEF 25% with exacerbation b/l PLEF klebsiella pneumonia NIDDM BAO resolved slow transit constipation thrombocytopenic c/w NC maintain spo2 90-94% c/w GDMT c/w amio c/w diuresis, goal net neg c/w Zosyn and solumedrol c/w bowel reg c/w lovenox for AC switch IV to po protonix diet cardiac dvt ppx AC full code condition critical prognosis poor 90 minutes critical care time rendered Plan discussed with: Patient, Spouse My Orders Orders - BELLA JONES MD Procedure Category Date Status Time Quetiapine Fumarate PHA 05/02/25 In Process Tablet (Seroquel Tab 22:00 Date of Service: May 03, 2025 Billing Provider: BELLA JONES MD Common Visit Codes: [id number] CARE 30-74 MIN, [id number] CARE-EACH +30MIN BELLA JONES MD May 03, 2025 10:28
[2025-05-03] MEDS: IOHEXOL 300 MG/ML 100ML BOTTLE IJ ONE (12:25)
[2025-05-03 13:41] LABS: Base Excess 7.7 mmol/L (-2.0-3.0)
--- NOTE | 2025-05-03 13:52 | DVH ---
CLINICAL INFORMATION: 79 years old, Male; change in mental status. TECHNIQUE: Axial imaging was obtained through the brain without contrast. Coronal and sagittal reform atted images were obtained, reviewed, and stored. Images were reviewed in brain and bone windows. Al l CT scans at this medical facility are performed using dose modulation techniques as appropriate to a performed exam including the following: Automated exposure control was utilized; adjustment of the MA and/or KV according to patient size; and use of iterative reconstruction technique. CTDIvol = 52.9 6 mGy DLP = 849.04 mGy-cm COMPARISON: None FINDINGS: Motion artifact limits evaluation. Given this limitation, no acute intracranial hemorrhage visualized. Scattered areas of hypoattenuation are seen in the periventricular and subcortical white matter, which are nonspecific but most likely sequelae of small vessel ischemic disease. Atrophic dereje nges with dilation of the ventricles and widening of the sulci. Basal cisterns are patent. Mucosal th ickening of the paranasal sinuses with fluid levels in the maxillary sinuses. Paranasal sinuses and m astoid air cells are clear. IMPRESSION: 1. Motion limited study. 2. No acute intracranial hemorrhage visualized given the limitations of the examination.
--- NOTE | 2025-05-03 14:57 | DVH ---
EXAM: CT NECK WITH CONTRAST SOFT INDICATION: large bruise on R neck, s/p tlc removal from r brachioceph a Exam Date: 05/03/2025 12:31 PM COMPARISON: None TECHNIQUE: CT of the neck with intravenous contrast. RADIATION DOSE: CTDIvol: 19.7 mGy, DLP: 602.84 mGy*cm FINDINGS: There is no evidence of cervical mass lesion, pathologically enlarged lymph nodes or fluid collection . The fat planes of the neck appear intact. The airway and larynx are unremarkable. The parotid, submandibular and thyroid glands are unremarkable. There is a large hematoma in the right neck and upper chest. Active extravasation is present in the r ight supraclavicular soft-tissue which may be related to a small branch from the right common carotid artery. The visualized lung apices are clear. The limited visualized portions of the brain are unremarkable. The osseous structures are unremarkable. IMPRESSION: Large hematoma in the right neck and upper chest. Active extravasation is present in the right supra clavicular soft-tissue possibly related to a small arterial branch from the right common carotid jonh ry. Area of injury appears to correspond to course of prior arterial catheter which was removed on . Critical Result: Active Bleeding Findings discussed with Brandi BUCKNER ICU at 05/03/2025 02:54 PM, and acknowledged receipt and understa nding of the findings.
[2025-05-03 15:32] LABS: Hematocrit 37.3 % (41.0-53.0); Hemoglobin 12.3 g/dL (13.5-17.5)
[2025-05-03] MEDS: phytonadione 5 MG in SODIUM CHL 0.9% 50 ML IV ONE (16:00)
[2025-05-03] MEDS: NOREPINEPHRINE 8 MG/250ML KIT 250 ML IV SCH (18:30)
[2025-05-03] MEDS: ETOMIDATE (2MG/ML) 20ML VIAL IV ONE ×2 (20:12→20:18)
[2025-05-03] MEDS: SUCCINYLCHOLINE CHLORIDE 20 MG/ML 10ML VIAL IV ONE ×2 (20:12→20:18)
--- NOTE | 2025-05-03 21:22 | DVH ---
INDICATION: intubation TECHNIQUE: Frontal view of the chest. COMPARISON: XY CHEST XRAY 1 VIEW on DOS: 05/02/25, XY CHEST PORTABLE on DOS: 05/01/25, XY CHEST PORTABLE on DOS: 05/01/25, XY CHEST XRAY 1 VIEW on DOS: 04/30/25, XY CHEST XRAY 1 VIEW on DOS: 04/30/25 FINDINGS: The endotracheal tube terminates 3 cm from the kate. Right PICC terminates at the distal superior v home cava. Enteric 2 courses below the diaphragm. Small bilateral pleural effusions with bibasilar atelectasis. IMPRESSION: Interval placement of an endotracheal tube which terminates 3 cm from the kate Small bilateral pleural effusions with bilateral lower lobe atelectasis versus aspiration
[2025-05-03 21:40] LABS: Base Excess 3.7 mmol/L (-2.0-3.0)
--- NOTE | 2025-05-03 23:57 | DVHPN2 ---
Progress Note - Dictate Date Seen: May 03, 2025 Has the PT tested + for MRSA If YES, has PT been informed?: No Medical Necessity Reason Pt with a Central, PICC or Fol: Yes The following are medically ne: Kenney Catheter Reason for kenney catheter: Strict I&O Subjective Patient seen and examined at bedside. Remains on supplemental oxygen Overnight events reviewed. vital signs Vital Sign Date Time Temp Pulse Resp B/P (MAP) Pulse Ox O2 Delivery O2 Flow Rate FiO2 05/03/25 23:45 98.6 57 20 96/46 (63) 100 209.5 05/03/25 22:31 60 05/03/25 22:00 Mechanical Ventilator+ 05/03/25 20:00 4 Total Intake and Output 05/02/25 05/02/25 05/03/25 15:00 23:00 07:00 Intake Total 200 ml 790 ml Output Total 1475 ml 1000 ml Balance -1275 ml -210 ml medications Current Medications Medications Dose Ordered Sig/Jose Alfredo Route Start Time Stop Time Status Last Admin Dose Admin Acetaminophen 650 mg Q6HP PRN PO 04/23/25 05:00 05/02/25 21:33 650 MG Diagnostic Test (Pha) 1 strip Q6HR 04/23/25 18:00 05/03/25 17:54 1 STRIP Insulin Human Regular Q6HR SC 04/23/25 18:00 05/03/25 17:54 2 UNITS Dextrose 50 ml UD PRN IV 04/23/25 15:30 Propofol 100 ml @ 2.268 mls/ hr Q24H IV 04/23/25 20:45 05/01/25 04:51 2.268 MLS/HR Fentanyl Citrate 250 ml @ 2.5 mls/hr Q24H IV 04/23/25 20:45 05/03/25 20:25 2.5 MLS/HR Midazolam HCl 50 ml @ 1 mls/hr Q24H IV 04/23/25 23:15 05/03/25 20:25 1 MLS/HR Piperacillin Sod/ Tazobactam Sod 100 ml @ 25 mls/hr Q8HR IV 04/24/25 06:00 05/03/25 22:16 25 MLS/HR Enteral Nutritional Formula 1,000 ml 60ML/HR GT 04/27/25 13:00 04/30/25 16:17 1,000 ML Pantoprazole Sodium 40 mg DAILY IV 04/28/25 10:00 05/03/25 08:18 40 MG Lactulose 30 ml BID PO 04/28/25 10:00 05/03/25 08:18 30 ML Empaglifozin 10 mg DAILY PO 05/01/25 10:00 05/03/25 08:19 10 MG Methylprednisolone Sodium Succinate 40 mg DAILY IV 05/01/25 10:00 05/03/25 08:18 40 MG Sodium Chloride 10 ml QSHIFT@10,22 IV 05/01/25 10:00 05/03/25 22:17 10 ML Sacubitril/ Valsartan 1 tab BID PO 05/01/25 08:00 05/03/25 08:19 1 TAB Amiodarone HCl 200 mg Q12HR PO 05/02/25 02:00 05/03/25 22:17 200 MG Quetiapine Fumarate 50 mg BID PO 05/02/25 22:00 05/03/25 08:20 50 MG Metoprolol Succinate 50 mg DAILY PO 05/04/25 10:00 Norepinephrine Bitartrate 250 ml @ 3.75 mls/hr Q24H IV 05/03/25 18:30 05/03/25 22:11 3.75 MLS/HR objective Gen.: Patient lying in bed in no apparent distress. On supplemental oxygen. Head: Normocephalic, atraumatic. Eyes: EOMI/PERRLA. Ears: Normal hearing. Normal anatomy. Neck/trachea: Trachea midline, supple. Nose: Normal external anatomy. Mouth: Moist mucous membranes. Chest: Decreased air entry bilaterally. No wheezing or rhonchi. Cardiovascular: Positive S1, positive S2. Regular rate and rhythm. Abdomen: Positive bowel sounds in all 4 quadrants. Soft, non-tender, non- distended. : Deferred. Rectal: Deferred. Skin: Warm, dry. Intact. Extremities: 2+ radial pulses bilaterally. No lower extremity edema. Neuro: Awake, alert, altered. No gross motor or sensory deficits. Cranial nerves II through XII intact. Gait not assessed. laboratory and microbiology Laboratory Tests 05/03/25 15:15 05/03/25 03:00 Test 05/03/25 03:00 Range/Units Serum Glucose 117 H 74-106 mg/dL Assessment/Plan Impression: Acute hypoxic respiratory failure 2/2 COPD exacerbation Acute COPD exacerbation Acute CHF exacerbation Acute metabolic encephalopathy Septic shock Lactic acidosis Pleural effusions Atelectasis Obesity Events: Remains on supplemental oxygen On 2 LPM NC Obtain STAT ABG. Awaiting report of head CT. Swallow eval passed - recommended mechanical soft diet. Head of bed elevation Aspiration precautions Continue antibiotics - Zosyn Follow up with IR for re-evaluation Accu-Cheks, ISS Held Lovenox for DVT ppx Pt with acute drop in hemoglobin Monitor hemoglobin closely Bruising growing around puncture site. Diurese with Lasix Monitor renal function Monitor electrolytes. Supplement as necessary. Labs and imaging reviewed. Rest of plan as noted below. Plan: S/p extubation on 05/01/25 Supplemental oxygen Titrate to keep O2 sats above 92%. Continue antibiotics. IV steroids Amiodarone PO Accu-Cheks, ISS Monitor hemoglobin Diurese with Lasix Monitor renal function Monitor electrolytes. Supplement as necessary. Monitor ins and outs. Maintain euvolemia. Obesity complicates all care. GI prophylaxis - Protonix DVT prophylaxis - Lovenox SC (on hold) Prognosis: Poor given patient's multiple co-morbidities. Rest of plan per hospitalist and other consultants. Thank you, Dr. Serra, for allowing me to participate in this patient's care. Further recommendations will depend on the patient's clinical course. Please do not hesitate to contact me if you have any questions or concerns. This medical document was created using an electronic medical record system with [employer] dictation system. Although these documentations are being carefully reviewed, there may still be some phonetic and typographical changes. The errors are purely typographical, due to imperfection on the software program, and do not reflect any compromise in the patient's medical care. Dietary Evaluation Review Comments: Nutrition Recommendation: 1. TF Vital AF 1.2 Luis Enrique @ 60 ml/hr. start @ 20ml/hr, increase 10ml/hr Q4H until goal is reached. TF at goal volume provides 100% energy & protein needs - 1728 kcal, 108 gm protein, 1168 ml free water 2. Water flush 140ml Q6H if allowed 3. TPN if NPO> 7 days Expected Outcomes/Goals: To meet >75% estimated needs Fu 2-3 days Plan discussed with: Patient, Other (DUDLEY Sena) VITO REDMOND MD May 03, 2025 23:57
[2025-05-04] VITALS (103 sets, daily range): BP systolic 75–156; BP diastolic 36–58; PULSE 48–63; RESP 15–20; TEMP 84.4–99.9; O2SAT 100
[2025-05-04 04:05] LABS: Hematocrit 35.6 % (41.0-53.0); Hemoglobin 11.5 g/dL (13.5-17.5); Mean Corpuscular Hemoglobin 29.2 pg (28.0-32.0); Mean Corpuscular Volume 90.5 fL (80.0-100.0); Nucleated Red Blood Cells % 0.1 %
[2025-05-04 04:11] LABS: Anion Gap 9 (5-15); Chloride 106 mmol/L (98-107)
[2025-05-04 04:17] LABS: BUN/Creatinine Ratio 45.2 (10.0-20.0); Magnesium 2.5 mg/dL (1.6-2.6)
[2025-05-04 04:27] LABS: INR 1.17 (0.9-1.15); Partial Thromboplastin Time 33.1 SEC (24.5-34.5); Prothrombin Time 12.2 sec (9.3-11.8)
--- NOTE | 2025-05-04 04:37 | DVHNC2 ---
Intubation Indication: Airway Protection Pretreated with: Analgesia, Sedation Medicated with: Succinylcholine Intubation size: cm (7.5) Informed consent obtained: Yes Risks/benefits/alt described: Yes Notes A time out was performed. My hands were washed immediately prior to the procedure. mask with protective eyewear, gown and gloves throughout the procedure. The patient was placed on a radiographer cardiac catheterization including continuous pulse oximetry. Rapid Sequence Intubation was conducted. The patient received 15 mg of etomidate for induction and 60mg of succinylcholine for adequate paralysis. Cricoid pressure was maintained from time induction agent was given to time of cuff balloon inflation. Using a MAC four laryngoscope and a size 7.5 endotracheal tube with stylet, the patient was intubated on the 1st attempt. The stylet was removed and cuff balloon was inflated. Appropriate endotracheal tube position was confirmed by direct visualization of vocal cord passage, fogging of the tube, CO2 colormetric indicator and symmetric breath sounds. The tube was secured at 22 cm at the lips. Post intubation chest x-ray is pending at this time. Date of Service: May 03, 2025 Billing Provider: PAMELA TREVIZO Common Visit Codes: PROCEDURE ONLY Procedure Codes: [id number] PAMELA TREVIZO May 04, 2025 04:37
[2025-05-04 04:40] LABS: Blood Urea Nitrogen 33 mg/dL (9-23); Calcium 7.6 mg/dL (8.7-10.4); Carbon Dioxide 33 mmol/L (20-31); Glucose 134 mg/dL (74-106); Potassium 3.3 mmol/L (3.5-5.1); Sodium 148 mmol/L (136-145)
--- NOTE | 2025-05-04 04:57 | DVH ---
CHEST RADIOGRAPH Indication: intvl Technique: Single frontal view of the chest was obtained Comparison: XY CHEST PORTABLE on DOS: 05/03/25 FINDINGS: Lines and Tubes: The endotracheal tube terminates 3.3 cm above the kate. Right PICC terminates in t he superior vena cava. The enteric tube courses below the left hemidiaphragm and the tip extends outs dari the field of view. Endotracheal tube terminates 3.2 cm above the kate. Lungs: Bibasilar airspace disease. Pleura: Small bilateral pleural effusions. No pneumothorax. Cardiomediastinal contours: Unremarkable Bones: No acute osseous abnormality. IMPRESSION: 1. Stable position of the support lines and tubes. 2. Small bilateral pleural effusions and bibasilar airspace disease.
[2025-05-04] MEDS: POTASSIUM CHL 20MEQ/100ML 100 ML IV SCH (06:42)
[2025-05-04 06:43] LABS: Base Excess 5.4 mmol/L (-2.0-3.0)
[2025-05-04] MEDS: METOPROLOL SUCCINATE XL 50 MG TAB PO SCH (07:03)
[2025-05-04] MEDS: IODIXANOL 320MG/ML 100ML BTL IV ONE (08:51)
[2025-05-04] MEDS: LIDOCAINE 2%HCL (LOCAL ANESTH.) INJ 20ML MDV ONE (09:05)
[2025-05-04 11:28] LABS: Hematocrit 34.7 % (41.0-53.0); Hemoglobin 11.2 g/dL (13.5-17.5)
[2025-05-04 14:55] LABS: Hematocrit 32.1 % (41.0-53.0); Hemoglobin 10.4 g/dL (13.5-17.5)
--- NOTE | 2025-05-04 15:58 | DVHPN2 ---
Assessment/Plan Assessment/Plan ICU note 79 M with DM HTN admitted for COPD and HF exacerbation, intubated and placed on mechanical vent, started on pressors, empiric abx and diuretics. now off pressors and extubated. rebleeding from prior insertion site, patient was ellectively intubated for airway protection. seen today, patient was seen by IR, neck angiogram done with active bleeding stopped. patient was intubated for airway protection yesterday. pressor low dose likely sedation related. c/w to trend h/h. plt >100, given vit k. physical exam intubated sedated on mechanical vent R neck bruise mechanical breath sounds s1 s2 rrr abdomen soft no le edema labs ekg imaging reviewed assessment and plan acute metabolic encephalopathy acute systolic heart failure septic shock acute hypoxic hypercapnic RF req mechanical ventilator aflutter HTN emergency s/p CVC removal from r brachiocephalic artery COPD group E with exacerbation HFrEF 25% with exacerbation b/l PLEF klebsiella pneumonia NIDDM BAO resolved slow transit constipation thrombocytopenic c/w NC maintain spo2 90-94% c/w GDMT c/w amio c/w diuresis, goal net neg c/w Zosyn and solumedrol c/w bowel reg hold all AC and antiplatelets trend h/h diet cardiac dvt ppx AC gi ppx protonix full code condition critical prognosis poor 40 minutes critical care time rendered Plan discussed with: Spouse, Daughter My Orders Orders - BELLA JONES MD Procedure Category Date Status Time * Radiologist Consult CONS 05/03/25 Transmitted 18:26 Hemoglobin & LAB 05/04/25 Logged Hematocrit 22:00 Norepinephrine 8 PHA 05/03/25 In Process Mg/250ml Kit 18:30 Chest Portable XY 05/04/25 Resulted 04:00 Date of Service: May 04, 2025 Billing Provider: BELLA JONES MD Common Visit Codes: 94503-[id number] CARE 30-74 MIN BELLA JONES MD May 04, 2025 15:58
[2025-05-04] MEDS: POTASSIUM CHL 20MEQ/100ML 100 ML IV ONE (16:12)
[2025-05-04 22:22] LABS: Hematocrit 34.4 % (41.0-53.0); Hemoglobin 11.4 g/dL (13.5-17.5)
--- NOTE | 2025-05-04 23:37 | DVHPN2 ---
Progress Note - Dictate Date Seen: May 04, 2025 Has the PT tested + for MRSA If YES, has PT been informed?: No Medical Necessity Reason Pt with a Central, PICC or Fol: Yes The following are medically ne: Kenney Catheter Reason for kenney catheter: Strict I&O Subjective Patient seen and examined at bedside. Sedated, intubated on mechanical ventilator. Overnight events reviewed. vital signs Vital Sign Date Time Temp Pulse Resp B/P (MAP) Pulse Ox O2 Delivery O2 Flow Rate FiO2 05/04/25 23:00 99.7 63 16 105/46 (65) 100 211.5 05/04/25 22:14 30 05/04/25 22:00 Mechanical Ventilator+ 05/03/25 20:00 4 Total Intake and Output 05/03/25 05/03/25 05/04/25 15:00 23:00 07:00 Intake Total 525.50 ml 246.25 ml Output Total 1850 ml 575 ml Balance -1324.50 ml -328.75 ml medications Current Medications Medications Dose Ordered Sig/Jose Alfredo Route Start Time Stop Time Status Last Admin Dose Admin Acetaminophen 650 mg Q6HP PRN PO 04/23/25 05:00 05/02/25 21:33 650 MG Diagnostic Test (Pha) 1 strip Q6HR 04/23/25 18:00 05/04/25 17:14 1 STRIP Insulin Human Regular Q6HR SC 04/23/25 18:00 05/04/25 00:59 2 UNITS Dextrose 50 ml UD PRN IV 04/23/25 15:30 Propofol 100 ml @ 2.268 mls/ hr Q24H IV 04/23/25 20:45 05/01/25 04:51 2.268 MLS/HR Fentanyl Citrate 250 ml @ 2.5 mls/hr Q24H IV 04/23/25 20:45 05/04/25 15:34 10 MLS/HR Midazolam HCl 50 ml @ 1 mls/hr Q24H IV 04/23/25 23:15 05/04/25 02:11 5 MLS/HR Piperacillin Sod/ Tazobactam Sod 100 ml @ 25 mls/hr Q8HR IV 04/24/25 06:00 05/04/25 22:40 25 MLS/HR Enteral Nutritional Formula 1,000 ml 60ML/HR GT 04/27/25 13:00 04/30/25 16:17 1,000 ML Pantoprazole Sodium 40 mg DAILY IV 04/28/25 10:00 05/03/25 08:18 40 MG Lactulose 30 ml BID PO 04/28/25 10:00 05/03/25 08:18 30 ML Empaglifozin 10 mg DAILY PO 05/01/25 10:00 05/03/25 08:19 10 MG Methylprednisolone Sodium Succinate 40 mg DAILY IV 05/01/25 10:00 05/03/25 08:18 40 MG Sodium Chloride 10 ml QSHIFT@10,22 IV 05/01/25 10:00 05/04/25 22:42 10 ML Amiodarone HCl 200 mg Q12HR PO 05/02/25 02:00 05/03/25 22:17 200 MG Norepinephrine Bitartrate 250 ml @ 3.75 mls/hr Q24H IV 05/03/25 18:30 05/03/25 22:11 3.75 MLS/HR objective Gen.: Patient lying in bed in medical ICU. Sedated, intubated on mechanical ventilator. Head: Normocephalic, atraumatic. Eyes: PERRLA. Ears: Normal external anatomy. Throat: Endotracheal tube and orogastric tube in place. Neck: Supple, trachea midline. Chest: Transmitted breath sounds bilaterally. Decreased air entry bilaterally. No wheezing. Bibasilar crackles. Cardiovascular: Positive S1, positive S2. Regular rate and rhythm. Abdomen: Positive bowel sounds in all 4 quadrants. Soft, nontender, nondistended. : Kenney in place. Normal external genitalia. Rectal: Deferred. Skin: Warm, dry. Intact. Extremities: 2+ radial pulses bilaterally. No lower extremity edema. Neuro: Sedated. laboratory and microbiology Laboratory Tests 05/04/25 21:49 05/04/25 03:00 Test 05/04/25 03:00 Range/Units Serum Glucose 134 H 74-106 mg/dL Assessment/Plan Impression: Acute hypoxic respiratory failure 2/2 COPD exacerbation Acute COPD exacerbation Acute CHF exacerbation Acute metabolic encephalopathy Septic shock Lactic acidosis Pleural effusions Atelectasis Obesity Events: Note, patient was reintubated yesterday. Currently on vent support On AC mode with RR 16, VT 450, PEEP 5, FiO2 30% Sedated on Versed, Fentanyl. On pressors for hemodynamic support Levophed 2 mcg/min Titrate to keep mean arterial pressure greater than 65 mmHg IR recommendations appreciated. Monitor hemoglobin Monitor platelet count Head CT revealed no ICH. CXR reviewed, demonstrates small bilateral pleural effusions and bibasilar airspace disease. Head of bed elevation Aspiration precautions Continue antibiotics Accu-Cheks, ISS Lovenox for DVT ppx - on hold Monitor hemoglobin closely Patient was seen by IR, neck angiogram done with active bleeding stopped. Labs and imaging reviewed. Rest of plan as noted below. Plan: S/p extubation on 05/01/25 - reintubated Patient is intubated, on mechanical ventilator. On AC mode with RR 16, VT 450, PEEP 5, FiO2 30% Titrate FIO2 to keep O2 saturation above 90%. VAP bundle. Daily ABG and CXR while intubated Sedate for ventilator synchrony Pressors as necessary for hemodynamic support. Titrate to keep MAP greater than 65 mmHg. Continue antibiotics. IV steroids Amiodarone PO Accu-Cheks, ISS Monitor hemoglobin Monitor renal function Monitor electrolytes. Supplement as necessary. Monitor ins and outs. Maintain euvolemia. Obesity complicates all care. GI prophylaxis - Protonix DVT prophylaxis - Lovenox SC (on hold) Prognosis: Poor given patient's multiple co-morbidities. Rest of plan per hospitalist and other consultants. Thank you, Dr. Serra, for allowing me to participate in this patient's care. Further recommendations will depend on the patient's clinical course. Please do not hesitate to contact me if you have any questions or concerns. This medical document was created using an electronic medical record system with [employer] dictation system. Although these documentations are being carefully reviewed, there may still be some phonetic and typographical changes. The errors are purely typographical, due to imperfection on the software program, and do not reflect any compromise in the patient's medical care. Dietary Evaluation Review Comments: Nutrition Recommendation: 1. TF Vital AF 1.2 Luis Enrique @ 60 ml/hr. start @ 20ml/hr, increase 10ml/hr Q4H until goal is reached. TF at goal volume provides 100% energy & protein needs - 1728 kcal, 108 gm protein, 1168 ml free water 2. Water flush 140ml Q6H if allowed 3. TPN if NPO> 7 days Expected Outcomes/Goals: To meet >75% estimated needs Fu 2-3 days Plan discussed with: Other (DUDLEY Sena) Critical Care Time(min): 35 VITO REDMOND MD May 04, 2025 23:37
[2025-05-05] VITALS (104 sets, daily range): BP systolic 81–156; BP diastolic 35–118; PULSE 47–67; RESP 11–18; TEMP 44.8; O2SAT 97–100
[2025-05-05 03:35] LABS: Hematocrit 33.5 % (41.0-53.0); Hemoglobin 10.9 g/dL (13.5-17.5); Mean Corpuscular Hemoglobin 29.7 pg (28.0-32.0); Mean Corpuscular Volume 90.9 fL (80.0-100.0); Nucleated Red Blood Cells % 0.2 %
[2025-05-05 03:45] LABS: Potassium 3.6 mmol/L (3.5-5.1)
[2025-05-05 03:46] LABS: Anion Gap 9 (5-15)
[2025-05-05 03:52] LABS: BUN/Creatinine Ratio 38.7 (10.0-20.0)
[2025-05-05 04:15] LABS: Blood Urea Nitrogen 41 mg/dL (9-23); Calcium 7.6 mg/dL (8.7-10.4); Carbon Dioxide 32 mmol/L (20-31); Chloride 108 mmol/L (98-107); Glucose 132 mg/dL (74-106); Sodium 149 mmol/L (136-145)
--- NOTE | 2025-05-05 04:34 | DVH ---
CHEST RADIOGRAPH Indication: Intubated Technique: Single frontal view of the chest was obtained COMPARISON: XY CHEST PORTABLE on DOS: 05/04/25, XY CHEST PORTABLE on DOS: 05/03/25, XY CHEST XRAY 1 VIEW on DOS: 05/02/25, XY CHEST PORTABLE on DOS: 05/01/25, XY CHEST PORTABLE on DOS: 05/01/25 FINDINGS: Lines and Tubes: Slight interval retraction of endotracheal tube such that the tip now projects appro ximately 4.4 cm above the level of the kate. Right PICC and enteric catheter are stable in position with the tip of the enteric catheter projecting over the expected location of the gastric lumen. Lungs: Slight interval decrease in small left pleural effusion with persistent small right pleural ef fusion and right basilar pulmonary airspace disease. No pneumothorax. Cardiomediastinal contours: Unremarkable Bones: Unremarkable IMPRESSION: 1. Slight interval decrease in small left pleural effusion. Persistent small right pleural effusion and basilar pulmonary airspace disease noted. 2. Slight interval retraction of endotracheal tube such that the tip now projects approximately 4.4 c m above the level of the kate. Remaining lines and tubes unchanged.
[2025-05-05 07:11] LABS: Base Excess 5.2 mmol/L (-2.0-3.0)
--- NOTE | 2025-05-05 09:09 | DI ---
CL ANGIO BRACHIAL RETRO S I, HISTORY: Central line placed into the right brachiocephalic/subclavian artery previously removed, active extravasation seen on yesterday CTA neck. PROCEDURE: Informed consent was obtained. the patient was placed on the fluoroscopic table in supine position. The right groin was prepped with chlorhexadine which was allowed to dry and draped in sterile fashion. Time out was performed. IV sedation and 1% Lidocaine were administered. the right common femoral artery was accessed using a micropuncture set and over a guide wire, a 7 Fr vascular sheath was placed into the iliac artery. A 6 Fr diagnostic catheter was positioned into the right brachiocephalic artery. An angiogram of the right brachiocephalic artery was performed. The catheter was repositioned over a wire into the right subclavian artery. Diagnostic angiogram was then performed in multiple projections of the subclavian artery. the catheter was removed and Angioseal device was used for hemostasis. No immediate complication was identified. Air Kerma 75 mGy FLUOROSCOPY TIME: 6.7 minutes. CONTRAST USED: 50 mL SEDATION: Dr. Chikis Kumar was personally responsible for the administration of moderate sedation during the procedure performed, including the use of an independent trained observer who had no other duties during the procedure. the drugs utilized were IV (see nursing log for details). the total time of supervision by the attending physician was approximately 45 minutes. FINDINGS: The right brachiocephalic, subclavian, and carotid arteries are patent and unremarkable. The right vertebral artery, internal mammary, thyrocervical arteries appear patent. No contrast extravasation was visualized. No clear abnormality / contrast extravasation seen at the location of the prior central venous catheter insertion site on the proximal right subclavian artery. IMPRESSION: No clear abnormality / contrast extravasation seen at the location of the prior central venous catheter insertion site on the proximal right subclavian artery. A covered stent was not placed at this time. Possibly, discontinuation of anticoagulation stopped the bleeding as no active contrast extravasation was seen. Plan: Discontinue anticoagulation. Follow up hgb and hematoma. Follow up CTA neck if there is growth of hematoma or drop in hgb and can then consider a definitive treatment with a covered stent at the proximal right subclavian artery. [employer]
--- NOTE | 2025-05-05 19:15 | DVHPNRES ---
Progress Note Date Seen: May 05, 2025 Resident Creating Document: MIS REYEZ RESIDENT Has the PT tested + for MRSA If YES, has PT been informed?: No Medical Necessity Reason Pt with a Central, PICC or Fol: Yes The following are medically ne: Kenney Catheter Reason for kenney catheter: Strict I&O Subjective Review of Systems Mr. Farley is a 79-year-old male who presents with a chief complaint of bilateral leg swelling. He reports a chronic history of leg swelling, previously managed with a medication obtained from [place], the name of which he cannot recall. He admits to not taking this medication for some time. The patient is a poor historian but endorses a past medical history of diabetes mellitus (DM), hypertension (HTN), and an unspecified "heart issue." He denies any recent chest pain, shortness of breath, or dizziness. On triage, his blood pressure was markedly elevated at 180/116 mmHg with a pulse of 140 bpm. Given his history and current presentation, differential diagnoses include fluid retention possibly due to cardiac or renal insufficiency, medication noncompliance, electrolyte imbalance, and other systemic causes. Past Medical History diabetes mellitus (DM), hypertension (HTN), and an unspecified "heart issue." Past Surgical History none Family History: None (Noncontributory) Smoke: No ALCOHOL: none Drugs: None Lives: with Family Domestic Violence: Neg 04/23/25: patient was found with high oxygen requirements, respiratory acidosis, BIPAP was placed, POCUS at bedside possible reduced ejection fraction and hypokinesis, patient is having acute respiratory failure due to acute exacerbation of heart failure and COPD, antibiotics and solumedrol were started, mild hypokalemia was resolved with IV insulin 10 ui and furosemide, patient still has HR above 130, carvedilol is added, patient is MARIELENA status 04/24/25: during the night of 04/23/25, patient started to be more hypercapnic and drowsy, not responding to BIPAP, so talking with bhavani family the decision was to intubate, also patient started to be hypotensive with the need of vasopressors, central line was attempted to be placed on right yugular vein but the catheter is found to be entering through the brachiocephalic (innominate) artery with its tip residing in the Aortic arch, AngioCT scan STAT confirmed the findings, general surgery was consulted who advice endovascular stent placement to span the defect in the artery by means of transfemoral arteriography done by Interventional Radiologist, the removal of the catheter was done successfully by Dr José ARZOLA (formal radiological report pending) , right now we are going to f/u hb and bed rest, family was informed about the interventions, consent forms were signed, at the moment on fentanyl and versed drip, levophed 7 mcg, ABG after procedure ph 7.47 pco2 38 po2 69.6 hco3 27.8 ,continue monitor 04/27/25: During the weekend, no bleeding from the puncture site, patient is being on afib, levophed was wean off and phenylephrine was started, also digoxin was on, low dose heparin was started due to high chadvasc. Also sedation vacation was done, but today at 4 am patient started to be agitated. His platelets are 129. Cardiology today, they changed digoxin to amiodarone. Anticoagulation was DC, he will benefit for cath due to EF 25% , possible on sunday, Lipid panel normal. 04/28/25: amiodarone dc by cardiology, off pressors, thoracentesis done, 1.3 LT drained, klebsiella positive in sputum, [facility] tomorrow 04/29/25: off pressors, HR in the 70s, patient was slightly agitated, sedation was increased, vanco dc, [facility] with normal coronaries 04/30/25: off pressors, patient will benefit from cpap trial, precedex am, dc TLC, PICC line consult, cardiology started jardiance and metoprolol 05/01/25: PICC line placed at 7 am, on precedex infusion cpap started at 12: 30 pm ABG: PaFiO2 271, patient had an episode of agitation HR went up to 170s, afib with RVR, amiodarone drip was ordered, but after the agitation episode resolves, HR went down, right now patient is calm, extubated at 2 pm. 05/02/25: extubated, repleted K, agitated, adding Seroquel. pending bedside swallow, off pressors 05/03/25: bruise on neck expanding, hb drop. sending for CT, start oral feeding, holding lasix for now, increasing GDMT. avoid CCB. CT showed active bleeding, decision to transfer [facility] for CT/vasc. ss consult placed. trend HH. patient was intubated for airway protection 05/04/25: patient was seen by IR, neck angiogram done with active bleeding stopped. pressor low dose likely sedation related. c/w to trend h/h. plt >100, given vit k. 05/05/25: extend discussion with the family today and Dr Kumar IR: positive pressure of the ventilator is helping to control the bleeding, we are going to wait until hematoma is decreasing to do another intervention, possibility of tracheostomy and stent placement were discussed with the family, risk of stroke were discussed, if hb and platelets are stable and if is not activing bleeding expectant management will be done, there is not expansible hematoma, pseudomonas is growing in new sputum culture, still sensible to zosyn, we are going to restart the feedings, amiodarone once daily, no anticoagulation, levophed 2 mcg Objective vital signs Vital Sign Date Time Temp Pulse Resp B/P (MAP) Pulse Ox O2 Delivery O2 Flow Rate FiO2 05/05/25 18:00 52 16 131/55 (80) 100 30 05/05/25 18:00 Mechanical Ventilator+ 05/05/25 16:30 99.0 210.2 05/03/25 20:00 4 Total Intake and Output 05/04/25 05/04/25 05/05/25 15:00 23:00 07:00 Intake Total 284.25 ml 125.50 ml 144.75 ml Output Total 300 ml 325 ml Balance 284.25 ml -174.50 ml -180.25 ml medications Current Medications Medications Dose Ordered Sig/Jose Alfredo Route Start Time Stop Time Status Last Admin Dose Admin Acetaminophen 650 mg Q6HP PRN PO 04/23/25 05:00 05/02/25 21:33 650 MG Diagnostic Test (Pha) 1 strip Q6HR 04/23/25 18:00 05/05/25 12:14 1 STRIP Insulin Human Regular Q6HR SC 04/23/25 18:00 05/05/25 01:23 2 UNITS Dextrose 50 ml UD PRN IV 04/23/25 15:30 Propofol 100 ml @ 2.268 mls/ hr Q24H IV 04/23/25 20:45 05/01/25 04:51 2.268 MLS/HR Fentanyl Citrate 250 ml @ 2.5 mls/hr Q24H IV 04/23/25 20:45 05/05/25 10:58 15 MLS/HR Midazolam HCl 50 ml @ 1 mls/hr Q24H IV 04/23/25 23:15 05/05/25 06:24 1 MLS/HR Piperacillin Sod/ Tazobactam Sod 100 ml @ 25 mls/hr Q8HR IV 04/24/25 06:00 05/05/25 13:50 25 MLS/HR Pantoprazole Sodium 40 mg DAILY IV 04/28/25 10:00 05/05/25 10:45 40 MG Lactulose 30 ml BID PO 04/28/25 10:00 05/05/25 10:45 30 ML Empaglifozin 10 mg DAILY PO 05/01/25 10:00 05/05/25 10:44 10 MG Sodium Chloride 10 ml QSHIFT@10,22 IV 05/01/25 10:00 05/05/25 10:44 10 ML Norepinephrine Bitartrate 250 ml @ 3.75 mls/hr Q24H IV 05/03/25 18:30 05/03/25 22:11 3.75 MLS/HR Amiodarone HCl 200 mg DAILY PO 05/06/25 10:00 Enteral Nutritional Formula 1,000 ml 60ML/HR GT 05/05/25 16:45 Examination General Appearance: TV 450 RR 16 FIO2 30 PEEP 8 HEENT: Atraumatic, PERRLA, EOMI, Mucous membr. moist/pink, the hematoma is no longer expanding and apperas to be undergoing resorption, is migrated along the subcutaneous to the back Respiratory: Bilateral basal crackles Cardiovascular: rhythmic HR 50 Abdominal: Normal bowel sounds, Soft, No tenderness, No hepatospenomegaly, No masses Extremities: Edema 2+, PICC line right arm Skin: No rashes, No breakdown, No significant lesion laboratory and microbiology Laboratory Tests 05/05/25 02:35 Test 05/05/25 02:35 Range/Units Serum Glucose 132 H 74-106 mg/dL Microbiology Date/Time Source Procedure Growth Status 05/03/25 20:20 Trachea Gram Stain - Final Complete 05/03/25 20:20 Respiratory Culture - Final Pseudomonas aeruginosa Complete 04/28/25 12:55 Pleural Fluid Gram Stain - Final Complete 04/28/25 12:55 Pleural Fluid Aerobic Culture - Final Complete 04/24/25 01:45 Blood Blood Culture - Final NO GROWTH AFTER 5 DAYS OF INCUBATION. Complete 04/23/25 21:00 Sputum Expectorated Sputum Gram Stain - Final Complete 04/23/25 21:00 Respiratory Culture - Final Klebsiella pneumoniae Complete 04/23/25 19:00 Voided Urine Urine Culture - Final Complete Problem List/Assessment/Plan Problem List/Assessment/Plan Neurologic #Acute metabolic encephalopathy due to hypercapnic respiratory failure sedation: fentanyl and midazolam Cardiovascular #Acute exacerbation of heart failure with possible reduced ejection fraction #Septic shock ECHO EF 25%: severe dilated cavities, LHC no significant CAD Cardiology on board GDMT: jardiance 10 mg levoped 2 mcg #New onset atrial flutter 2-1 AV conduction with RVR resolved amiodarone once PO #Hypertensive emergency resolved #Hypertensive heart disease with systolic failure #sp CVC removal from right brachiocephalic/subclavian artery #neck hematoma hb stable, patient is having a bruise, migrating to the back, no expansive hematoma at the moment 05/05/25: extend discussion with the family today and Dr Kumar IR: positive pressure of the ventilator is helping to control the bleeding, we are going to wait until hematoma is decreasing to do another intervention, possibility of tracheostomy and stent placement were discussed with the family, risk of stroke were discussed, if hb and platelets are stable and if is not active bleeding, expectant management will be carried, there is not expansible hematoma, pseudomonas is growing in new sputum culture, still sensible to zosyn, we are going to restart the feedings, amiodarone once daily, no anticoagulation, levophed 2 mcg Respiratory #Septic shock #Acute respiratory failure due to COPD exacerbation and heart failure #s/p mechanical ventilation #Respiratory alkalosis #Bilateral pleural effusions L>R at admission: likely parapneumonic Thoracentesis done 1.3 LT drained: exudate #pneumonia gram+/ gram - due to klebsiella pneumoniae and pseudomona aeruginosa #Severe respiratory acidosis resolved TV 450 RR 16 FIO2 30 PEEP 8 ph 7.469 pco2 41.3 po2 80.9 hco3 29.3 Zosyn DC Solumedrol Endocrinology #DM type 2, hba1c 6.7 ISS, mild Renal #Hyperkalemia, resolved #BAO due to VMN resolved IV insulin and furosemide given GI tube feedings: resume feedings #Mild Hyperbillirubinemia #Constipation resolved lactulose due to constipation Hem/onc #Thrombocytopenia: 128 monitor, improving Lines: PICC line right upper arm 05/01/25 intubation 04/23/25 extubated 05/01/25 reintubated 05/04/25 kenney catheter 04/23/[address] Corrales Full code Time spent on critical care 88 min excluding procedures and including discussion with family No anticoagulation, high risk of bleeding PUD prophylaxis: protonix IV Plan discussed with: Spouse, Daughter My Orders My Orders Orders - MIS REYEZ RESIDENT Procedure Category Date Status Time Amiodarone Tablet PHA 05/06/25 In Process (Cordarone Tablet) 10:00 Nutritional PHA 05/05/25 In Process Supplements (Vital Af 16:45 Ventilator Orders RT 05/05/25 Transmitted 16:36 Tube Feeding DIET 05/05/25 Transmitted Dinner Complete Blood Count LAB 05/06/25 Verified 04:00 Comprehensive LAB 05/06/25 Verified Metabolic Panel 04:00 PTPTT LAB 05/06/25 Verified 04:00 Chest Xray 1 View XY 05/06/25 Logged 04:00 Abg W/ Co-Ox RT 05/06/25 Logged 04:00 Dietary Evaluation Review Comments: Nutrition Recommendation: 1. TF Vital AF 1.2 Luis Enrique @ 60 ml/hr. start @ 20ml/hr, increase 10ml/hr Q4H until goal is reached. TF at goal volume provides 100% energy & protein needs - 1728 kcal, 108 gm protein, 1168 ml free water 2. Water flush 140ml Q6H if allowed 3. TPN if NPO> 7 days Expected Outcomes/Goals: To meet >75% estimated needs Fu 2-3 days Date of Service: May 05, 2025 Billing Provider: PAMELA CORRALES MD Common Visit Codes: 32437-[id number] CARE 30-74 MIN, 56458-[id number] CARE-EACH +30MIN MIS REYEZ RESIDENT May 05, 2025 19:15 PAMELA CORRALES MD May 06, 2025 15:51
[2025-05-06] VITALS (122 sets, daily range): BP systolic 69–178; BP diastolic 32–63; PULSE 41–66; RESP 15–18; TEMP 94.1–100; O2SAT 99–100
[2025-05-06 03:33] LABS: Hematocrit 31.9 % (41.0-53.0); Hemoglobin 10.5 g/dL (13.5-17.5); Mean Corpuscular Hemoglobin 29.8 pg (28.0-32.0); Mean Corpuscular Volume 90.8 fL (80.0-100.0); Nucleated Red Blood Cells % 0.1 %
[2025-05-06 03:42] LABS: INR 1.11 (0.9-1.15); Partial Thromboplastin Time 28.5 SEC (24.5-34.5); Prothrombin Time 11.6 sec (9.3-11.8)
[2025-05-06 03:48] LABS: Alanine Aminotransferase 32 U/L (7-40); Alkaline Phosphatase 53 U/L (46-116); Anion Gap 8 (5-15); BUN/Creatinine Ratio 42.7 (10.0-20.0); Potassium 4.0 mmol/L (3.5-5.1)
[2025-05-06 03:54] LABS: Albumin 2.9 g/dL (3.2-4.8); Bilirubin, Total 1.3 mg/dL (0.2-1.0); Blood Urea Nitrogen 41 mg/dL (9-23); Calcium 7.9 mg/dL (8.7-10.4); Carbon Dioxide 32 mmol/L (20-31); Chloride 111 mmol/L (98-107); Glucose 152 mg/dL (74-106); Sodium 151 mmol/L (136-145); Total Protein 4.9 g/dL (5.7-8.2)
--- NOTE | 2025-05-06 04:12 | DVH ---
CHEST RADIOGRAPH Indication: intubated Technique: Single frontal view of the chest was obtained COMPARISON: XY CHEST PORTABLE on DOS: 05/05/25, XY CHEST PORTABLE on DOS: 05/04/25, XY CHEST PORTABLE on DOS: 05/03/25, XY CHEST XRAY 1 VIEW on DOS: 05/02/25, XY CHEST PORTABLE on DOS: 05/01/25 FINDINGS: Lines and Tubes: Moderate interval advancement of endotracheal tube such that the tip now projects ap proximately 2.6 cm above the level of the kate. Remaining lines and tubes unchanged. Lungs: Small bilateral pleural effusions are stable in appearance and there is mild persistent bibasi lar pulmonary airspace disease. No pneumothorax. Cardiomediastinal contours: Unremarkable Bones: Unremarkable IMPRESSION: 1. Stable appearing mild bibasilar pulmonary airspace disease and small bilateral pleural effusions. 2. Interval advancement of endotracheal tube and remaining lines and tubes unchanged.
[2025-05-06 07:14] LABS: Base Excess 0.2 mmol/L (-2.0-3.0)
--- NOTE | 2025-05-06 07:45 | ECG ---
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
[2025-05-06] MEDS ORDERED: AMIODARONE HCL 200 MG TAB PO SCH (10:00)
[2025-05-06] MEDS: FREE WATER GT SCH (11:10)
[2025-05-06] MEDS: NOREPINEPHRINE 8 MG/250ML KIT 250 ML IV SCH (14:45)
[2025-05-06] MEDS: DOPamine 1600MCG/ML D5W 250 ML IV SCH (16:00)
[2025-05-06] MEDS: DOPamine 1600MCG/ML D5W 250 ML IV ONE (16:26)
[2025-05-06] MEDS ORDERED: VANCOMYCIN PER PHARMACY 0 MG IV SCH (18:15)
[2025-05-06] MEDS: VANCOMYCIN 1.5GM/300ML 300 ML IV ONE (18:50)
--- NOTE | 2025-05-06 22:01 | DVHPNRES ---
Progress Note Date Seen: May 06, 2025 Resident Creating Document: MIS REYEZ RESIDENT Has the PT tested + for MRSA If YES, has PT been informed?: No Medical Necessity Reason Pt with a Central, PICC or Fol: Yes The following are medically ne: PICC Line, Kenney Catheter Reason for kenney catheter: Strict I&O Subjective Review of Systems Mr. Farley is a 79-year-old male who presents with a chief complaint of bilateral leg swelling. He reports a chronic history of leg swelling, previously managed with a medication obtained from [place], the name of which he cannot recall. He admits to not taking this medication for some time. The patient is a poor historian but endorses a past medical history of diabetes mellitus (DM), hypertension (HTN), and an unspecified "heart issue." He denies any recent chest pain, shortness of breath, or dizziness. On triage, his blood pressure was markedly elevated at 180/116 mmHg with a pulse of 140 bpm. Given his history and current presentation, differential diagnoses include fluid retention possibly due to cardiac or renal insufficiency, medication noncompliance, electrolyte imbalance, and other systemic causes. Past Medical History diabetes mellitus (DM), hypertension (HTN), and an unspecified "heart issue." Past Surgical History none Family History: None (Noncontributory) Smoke: No ALCOHOL: none Drugs: None Lives: with Family Domestic Violence: Neg 04/23/25: patient was found with high oxygen requirements, respiratory acidosis, BIPAP was placed, POCUS at bedside possible reduced ejection fraction and hypokinesis, patient is having acute respiratory failure due to acute exacerbation of heart failure and COPD, antibiotics and solumedrol were started, mild hypokalemia was resolved with IV insulin 10 ui and furosemide, patient still has HR above 130, carvedilol is added, patient is MARIELENA status 04/24/25: during the night of 04/23/25, patient started to be more hypercapnic and drowsy, not responding to BIPAP, so talking with bhavani family the decision was to intubate, also patient started to be hypotensive with the need of vasopressors, central line was attempted to be placed on right yugular vein but the catheter is found to be entering through the brachiocephalic (innominate) artery with its tip residing in the Aortic arch, AngioCT scan STAT confirmed the findings, general surgery was consulted who advice endovascular stent placement to span the defect in the artery by means of transfemoral arteriography done by Interventional Radiologist, the removal of the catheter was done successfully by Dr José ARZOLA (formal radiological report pending) , right now we are going to f/u hb and bed rest, family was informed about the interventions, consent forms were signed, at the moment on fentanyl and versed drip, levophed 7 mcg, ABG after procedure ph 7.47 pco2 38 po2 69.6 hco3 27.8 ,continue monitor 04/27/25: During the weekend, no bleeding from the puncture site, patient is being on afib, levophed was wean off and phenylephrine was started, also digoxin was on, low dose heparin was started due to high chadvasc. Also sedation vacation was done, but today at 4 am patient started to be agitated. His platelets are 129. Cardiology today, they changed digoxin to amiodarone. Anticoagulation was DC, he will benefit for cath due to EF 25% , possible on sunday, Lipid panel normal. 04/28/25: amiodarone dc by cardiology, off pressors, thoracentesis done, 1.3 LT drained, klebsiella positive in sputum, [facility] tomorrow 04/29/25: off pressors, HR in the 70s, patient was slightly agitated, sedation was increased, vanco dc, [facility] with normal coronaries 04/30/25: off pressors, patient will benefit from cpap trial, precedex am, dc TLC, PICC line consult, cardiology started jardiance and metoprolol 05/01/25: PICC line placed at 7 am, on precedex infusion cpap started at 12: 30 pm ABG: PaFiO2 271, patient had an episode of agitation HR went up to 170s, afib with RVR, amiodarone drip was ordered, but after the agitation episode resolves, HR went down, right now patient is calm, extubated at 2 pm. 05/02/25: extubated, repleted K, agitated, adding Seroquel. pending bedside swallow, off pressors 05/03/25: bruise on neck expanding, hb drop. sending for CT, start oral feeding, holding lasix for now, increasing GDMT. avoid CCB. CT showed active bleeding, decision to transfer [facility] for CT/vasc. ss consult placed. trend HH. patient was intubated for airway protection 05/04/25: patient was seen by IR, neck angiogram done with active bleeding stopped. pressor low dose likely sedation related. c/w to trend h/h. plt >100, given vit k. 05/05/25: extend discussion with the family today and Dr Kumar IR: positive pressure of the ventilator is helping to control the bleeding, we are going to wait until hematoma is decreasing to do another intervention, possibility of tracheostomy and stent placement were discussed with the family, risk of stroke were discussed, if hb and platelets are stable and if is not active bleeding expectant management will be done, there is not expansible hematoma, pseudomonas is growing in new sputum culture, still sensible to zosyn, we are going to restart the feedings, amiodarone once daily, no anticoagulation, levophed 2 mcg 05/06/25: his HR has been into the 40s, possible sick sinus syndrome, amiodarone DC, dopamine fixed dose started, levophed titrate down, T max 100, vancomycin will be started, free water started due to hypernatremia, the ecchymosis is migrating to the lower body, his hb is stable, extensive discussion with the family about the plan Objective vital signs Vital Sign Date Time Temp Pulse Resp B/P (MAP) Pulse Ox O2 Delivery O2 Flow Rate FiO2 05/06/25 20:35 118/46 05/06/25 20:00 43 16 100 30 05/06/25 18:45 98.8 209.8 05/06/25 18:00 Mechanical Ventilator+ Total Intake and Output 05/05/25 05/05/25 05/06/25 15:00 23:00 07:00 Intake Total 219.25 ml 285.00 ml 556.50 ml Output Total 525 ml 550 ml Balance 219.25 ml -240.00 ml 6.50 ml medications Current Medications Medications Dose Ordered Sig/Jose Alfredo Route Start Time Stop Time Status Last Admin Dose Admin Acetaminophen 650 mg Q6HP PRN PO 04/23/25 05:00 05/02/25 21:33 650 MG Diagnostic Test (Pha) 1 strip Q6HR 04/23/25 18:00 05/06/25 17:25 1 STRIP Insulin Human Regular Q6HR SC 04/23/25 18:00 05/06/25 17:27 3 UNITS Dextrose 50 ml UD PRN IV 04/23/25 15:30 Propofol 100 ml @ 2.268 mls/ hr Q24H IV 04/23/25 20:45 05/01/25 04:51 2.268 MLS/HR Fentanyl Citrate 250 ml @ 2.5 mls/hr Q24H IV 04/23/25 20:45 05/06/25 16:01 15 MLS/HR Midazolam HCl 50 ml @ 1 mls/hr Q24H IV 04/23/25 23:15 05/06/25 15:54 3 MLS/HR Piperacillin Sod/ Tazobactam Sod 100 ml @ 25 mls/hr Q8HR IV 04/24/25 06:00 05/06/25 13:47 25 MLS/HR Pantoprazole Sodium 40 mg DAILY IV 04/28/25 10:00 05/06/25 09:15 40 MG Lactulose 30 ml BID PO 04/28/25 10:00 05/06/25 09:15 30 ML Empaglifozin 10 mg DAILY PO 05/01/25 10:00 05/06/25 09:15 10 MG Sodium Chloride 10 ml QSHIFT@10,22 IV 05/01/25 10:00 05/06/25 09:15 10 ML Enteral Nutritional Formula 1,000 ml 60ML/HR GT 05/05/25 16:45 Purified Water 200 ml Q6HR GT 05/06/25 12:00 05/06/25 17:25 200 ML Norepinephrine Bitartrate 250 ml @ 3.75 mls/hr Q24H IV 05/06/25 14:45 Dopamine HCl/ Dextrose 250 ml @ 4.995 mls/ hr Q24H IV 05/06/25 16:00 05/06/25 16:00 4.995 MLS/HR Vancomycin HCl 0 ml @ 0 mls/hr UD IV 05/06/25 18:15 Examination General Appearance: TV 450 RR 16 FIO2 30 PEEP 8 HEENT: Atraumatic, PERRLA, EOMI, Mucous membr. moist/pink, the hematoma is no longer expanding and appears to be undergoing resorption, is migrated along the subcutaneous to the back and flanks Respiratory: Bilateral basal crackles Cardiovascular: rhythmic HR 40 Abdominal: Normal bowel sounds, Soft, No tenderness, No hepatospenomegaly, No masses Extremities: Edema, PICC line right arm Skin: No rashes, No breakdown, No significant lesion laboratory and microbiology Laboratory Tests 05/06/25 03:00 Test 05/06/25 03:00 Range/Units Serum Glucose 152 H 74-106 mg/dL Microbiology Date/Time Source Procedure Growth Status 05/03/25 20:20 Trachea Gram Stain - Final Complete 05/03/25 20:20 Respiratory Culture - Final Pseudomonas aeruginosa Complete 04/28/25 12:55 Pleural Fluid Gram Stain - Final Complete 04/28/25 12:55 Pleural Fluid Aerobic Culture - Final Complete 04/24/25 01:45 Blood Blood Culture - Final NO GROWTH AFTER 5 DAYS OF INCUBATION. Complete 04/23/25 21:00 Sputum Expectorated Sputum Gram Stain - Final Complete 04/23/25 21:00 Respiratory Culture - Final Klebsiella pneumoniae Complete 04/23/25 19:00 Voided Urine Urine Culture - Final Complete Problem List/Assessment/Plan Problem List/Assessment/Plan Neurologic #Acute metabolic encephalopathy due to hypercapnic respiratory failure sedation: fentanyl and midazolam Cardiovascular #Acute exacerbation of heart failure with possible reduced ejection fraction #Septic shock ECHO EF 25%: severe dilated cavities, LHC no significant CAD Cardiology on board GDMT: jardiance 10 mg levoped 0.5 mcg #New onset atrial flutter 2-1 AV conduction with RVR resolved #Possible sick sinus syndrome #Hypertensive emergency resolved #Hypertensive heart disease with systolic failure #sp CVC removal from right brachiocephalic/subclavian artery #neck hematoma hb stable, patient is having a bruise, migrating to the back, no expansive hematoma at the moment 05/05/25: extend discussion with the family today and Dr Kumar IR: positive pressure of the ventilator is helping to control the bleeding, we are going to wait until hematoma is decreasing to do another intervention, possibility of tracheostomy and stent placement were discussed with the family, risk of stroke were discussed, if hb and platelets are stable and if is not active bleeding, expectant management will be carried, there is not expansible hematoma, pseudomonas is growing in new sputum culture, still sensible to zosyn, we are going to restart the feedings, amiodarone once daily, no anticoagulation, levophed 2 mcg 05/06/25: his HR has been into the 40s, possible sick sinus syndrome, amiodarone DC, dopamine fixed dose started, levophed titrate down, T max 100, vancomycin will be started, free water started due to hypernatremia, the ecchymosis is migrating to the lower body, his hb is stable, extensive discussion with the family about the plan Respiratory #Septic shock #Acute respiratory failure due to COPD exacerbation and heart failure #s/p mechanical ventilation #Respiratory alkalosis #Bilateral pleural effusions L>R at admission: likely parapneumonic Thoracentesis done 1.3 LT drained: exudate #pneumonia gram+/ gram - due to klebsiella pneumoniae and pseudomona aeruginosa #Severe respiratory acidosis resolved TV 450 RR 16 FIO2 30 PEEP 8 ph 7.416 pco2 39.3 po2 85.4 hco3 24.7 Zosyn and vancomycin Endocrinology #DM type 2, hba1c 6.7 ISS, mild Renal #Hyperkalemia, resolved #BAO due to VMN resolved IV insulin and furosemide given GI tube feedings: resume feedings #Mild Hyperbillirubinemia #Constipation resolved lactulose due to constipation Hem/onc #Anemia, normochromic, normocytic: 10.5 #Thrombocytopenia: 114 monitor, trending down slowly no need of transfusion Lines: PICC line right upper arm 05/01/25 intubation 04/23/25 extubated 05/01/25 reintubated 05/04/25 kenney catheter 04/23/[address] Corraels Full code Time spent on critical care 88 min excluding procedures and including discussion with family No anticoagulation, high risk of bleeding PUD prophylaxis: protonix IV Plan discussed with: Spouse, Daughter My Orders My Orders Orders - MIS REYEZ RESIDENT Procedure Category Date Status Time Free Water PHA 05/06/25 In Process 12:00 Norepinephrine 8 PHA 05/06/25 In Process Mg/250ml Kit 14:45 Communication Order ORDERS 05/06/25 Transmitted 14:34 Vancomycin Per PHA 05/06/25 In Process Pharmacy 18:15 Complete Blood Count LAB 05/07/25 Verified 04:00 Creatinine LAB 05/07/25 Verified 04:00 Vancomycin,Random LAB 05/07/25 Verified 04:00 Dietary Evaluation Review Comments: Nutrition Recommendation: 1. TF Vital AF 1.2 Luis Enrique @ 60 ml/hr. start @ 20ml/hr, increase 10ml/hr Q4H until goal is reached. TF at goal volume provides 100% energy & protein needs - 1728 kcal, 108 gm protein, 1168 ml free water 2. Water flush 140ml Q6H if allowed 3. TPN if NPO> 7 days Expected Outcomes/Goals: To meet >75% estimated needs Fu 2-3 days Date of Service: May 06, 2025 Billing Provider: PAMELA CORRALES MD Common Visit Codes: 20618-OFJTBCAB CARE 30-74 MIN, 09532-[id number] CARE-EACH +30MIN MIS REYEZ RESIDENT May 06, 2025 22:00 PAMELA CORRALES MD May 07, 2025 11:47
[2025-05-06] MEDS: Vital AF 1.2 Cal 1 liter bottle GT SCH (22:26)
[2025-05-07] VITALS (120 sets, daily range): BP systolic 79–204; BP diastolic 36–84; PULSE 46–81; RESP 11–20; TEMP 97–100.4; O2SAT 98–100
[2025-05-07] MEDS ORDERED: ATROPINE SULF 1 MG/10ml SYR IV PRN (02:00)
[2025-05-07 04:10] LABS: Hematocrit 30.6 % (41.0-53.0); Hemoglobin 9.9 g/dL (13.5-17.5); Mean Corpuscular Hemoglobin 29.7 pg (28.0-32.0); Mean Corpuscular Volume 91.4 fL (80.0-100.0); Nucleated Red Blood Cells % 0.1 %
[2025-05-07 04:21] LABS: Alanine Aminotransferase 29 U/L (7-40); Alkaline Phosphatase 52 U/L (46-116); Anion Gap 9 (5-15); BUN/Creatinine Ratio 36.4 (10.0-20.0); Carbon Dioxide 29 mmol/L (20-31); Potassium 3.7 mmol/L (3.5-5.1)
[2025-05-07 04:22] LABS: Bilirubin, Total 0.9 mg/dL (0.2-1.0)
[2025-05-07 04:31] LABS: Albumin 2.7 g/dL (3.2-4.8); Blood Urea Nitrogen 36 mg/dL (9-23); Calcium 8.3 mg/dL (8.7-10.4); Chloride 113 mmol/L (98-107); Glucose 196 mg/dL (74-106); Sodium 151 mmol/L (136-145); Total Protein 4.7 g/dL (5.7-8.2)
[2025-05-07 04:34] LABS: INR 1.08 (0.9-1.15); Partial Thromboplastin Time 30.3 SEC (24.5-34.5); Prothrombin Time 11.4 sec (9.3-11.8)
--- NOTE | 2025-05-07 05:46 | DVH ---
CHEST RADIOGRAPH Indication: intubated Technique: Single frontal view of the chest was obtained COMPARISON: XY CHEST XRAY 1 VIEW on DOS: 05/06/25, XY CHEST PORTABLE on DOS: 05/05/25, XY CHEST PORTABLE on DOS: 05/04/25, XY CHEST PORTABLE on DOS: 05/03/25, XY CHEST XRAY 1 VIEW on DOS: 05/02/25 FINDINGS: Lines and Tubes: Slight interval retraction of endotracheal tube such that the tip now projects appro ximately 3.5 cm above the level of the kate. Remaining lines and tubes unchanged. Lungs: Stable moderate diffuse increased prominence of the pulmonary vasculature. Mild interval clear ing of right basilar pulmonary infiltrate and slight interval decrease in bilateral pleural effusions . No pneumothorax. Cardiomediastinal contours: Unremarkable Bones: Unremarkable IMPRESSION: 1. Mild interval clearing of right basilar pulmonary infiltrate and slight interval decrease in bilat eral pleural effusions. 2. Stable diffuse increased prominence of the pulmonary vasculature. 3. Slight interval retraction of endotracheal tube such that the tip now projects approximately 3.5 c m above the level of the kate. Remaining lines and tubes unchanged.
[2025-05-07 06:35] LABS: Base Excess 0.9 mmol/L (-2.0-3.0)
--- NOTE | 2025-05-07 07:57 | ECG ---
[facility] Test Date: 2025-05-05 Test Time: 12:50:05 Pat Name: PAMELA NAIDU Department: icu Room: [address] [place] [address] A Gender: M [employer]: DUDLEY : 1945 Requested By: BELLA JONES Order Number: [id number] Reading MD: Armin Mercado Measurements Intervals [place] Rate: 51 P: 75 DE: 117 QRS: 70 QRSD: 104 T: 54 QT: 520 QTc: 480 Interpretive Statements Sinus rhythm Borderline short DE interval Abnormal T, consider ischemia, anterior leads Electronically Signed On 05-07-2025 19:17:32 PDT by Armin Mercado Please click the below link to view image of tracing.
[2025-05-07] MEDS: IOHEXOL 350 MG/ML 100ML IJ ONE (10:30)
--- NOTE | 2025-05-07 11:12 | DVH ---
Exam: CT CT ANGIO NECK CONTRAST INDICATION: neck hematoma EXAM DATE: 05/07/2025 10:33 AM COMPARISON: CT CT ANGIO NECK CONTRAST on DOS: 04/23/25 TECHNIQUE: CTA neck with intravenous contrast. 3D image postprocessing was performed on a dedicated workstation and images were used for interpretation and reporting. RADIATION DOSE: Angio: CTDIvol: 26.17 mGy, DLP: 811.77 mGy*cm FINDINGS: CTA neck: Large heterogeneous hematoma is seen in the right lower neck which measures 9.9 x 5.9 cm. No evidence of acute arterial extravasation or injury Endotracheal tube is noted. Enteric tube is noted. The visualized thoracic aortic arch and proximal great vessels are unremarkable. The left common, in ternal and external carotid arteries are within normal limits. The right common, internal and fire [employer] al carotid arteries are within normal limits. The cervical segments of the right and left vertebral arteries are within normal limits. The limited visualized lung apices are clear. The surrounding so ft tissues and osseous structures are otherwise unremarkable. IMPRESSION: 1. Large heterogeneous hematoma is seen in the right lower neck which measures 9.9 x 5.9 cm. 2. No evidence of acute arterial extravasation or injury.
[2025-05-07] MEDS: VANCOMYCIN 750MG KIT 100 ML IV SCH (11:35)
[2025-05-07] MEDS: DOPamine 1600MCG/ML D5W 250 ML IV SCH ×2 (13:45→16:03)
[2025-05-07] MEDS: D5W 5% 1,000 ML IV SCH (17:05)
[2025-05-07] MEDS: ACCU-CHEK COMFORT CURVE STRIP VI SCH (17:37)
[2025-05-07] MEDS ORDERED: DEXTROSE (50%) 50ML SYRG IV PRN (18:00)
[2025-05-07] MEDS: InsuLIN REG 1unit/0.01ml Soln (100units/ml) SC SCH (18:00)
--- NOTE | 2025-05-07 21:42 | DVHPNRES ---
Progress Note Date Seen: May 07, 2025 Resident Creating Document: MIS REYEZ RESIDENT Has the PT tested + for MRSA If YES, has PT been informed?: No Medical Necessity Reason Pt with a Central, PICC or Fol: Yes The following are medically ne: PICC Line, Kenney Catheter Reason for kenney catheter: Strict I&O Subjective Review of Systems Mr. Farley is a 79-year-old male who presents with a chief complaint of bilateral leg swelling. He reports a chronic history of leg swelling, previously managed with a medication obtained from [facility], the name of which he cannot recall. He admits to not taking this medication for some time. The patient is a poor historian but endorses a past medical history of diabetes mellitus (DM), hypertension (HTN), and an unspecified "heart issue." He denies any recent chest pain, shortness of breath, or dizziness. On triage, his blood pressure was markedly elevated at 180/116 mmHg with a pulse of 140 bpm. Given his history and current presentation, differential diagnoses include fluid retention possibly due to cardiac or renal insufficiency, medication noncompliance, electrolyte imbalance, and other systemic causes. Past Medical History diabetes mellitus (DM), hypertension (HTN), and an unspecified "heart issue." Past Surgical History none Family History: None (Noncontributory) Smoke: No ALCOHOL: none Drugs: None Lives: with Family Domestic Violence: Neg 04/23/25: patient was found with high oxygen requirements, respiratory acidosis, BIPAP was placed, POCUS at bedside possible reduced ejection fraction and hypokinesis, patient is having acute respiratory failure due to acute exacerbation of heart failure and COPD, antibiotics and solumedrol were started, mild hypokalemia was resolved with IV insulin 10 ui and furosemide, patient still has HR above 130, carvedilol is added, patient is MARIELENA status 04/24/25: during the night of 04/23/25, patient started to be more hypercapnic and drowsy, not responding to BIPAP, so talking with bhavani family the decision was to intubate, also patient started to be hypotensive with the need of vasopressors, central line was attempted to be placed on right yugular vein but the catheter is found to be entering through the brachiocephalic (innominate) artery with its tip residing in the Aortic arch, AngioCT scan STAT confirmed the findings, general surgery was consulted who advice endovascular stent placement to span the defect in the artery by means of transfemoral arteriography done by Interventional Radiologist, the removal of the catheter was done successfully by Dr José ARZOLA (formal radiological report pending) , right now we are going to f/u hb and bed rest, family was informed about the interventions, consent forms were signed, at the moment on fentanyl and versed drip, levophed 7 mcg, ABG after procedure ph 7.47 pco2 38 po2 69.6 hco3 27.8 ,continue monitor 04/27/25: During the weekend, no bleeding from the puncture site, patient is being on afib, levophed was wean off and phenylephrine was started, also digoxin was on, low dose heparin was started due to high chadvasc. Also sedation vacation was done, but today at 4 am patient started to be agitated. His platelets are 129. Cardiology today, they changed digoxin to amiodarone. Anticoagulation was DC, he will benefit for cath due to EF 25% , possible on sunday, Lipid panel normal. 04/28/25: amiodarone dc by cardiology, off pressors, thoracentesis done, 1.3 LT drained, klebsiella positive in sputum, [facility] tomorrow 04/29/25: off pressors, HR in the 70s, patient was slightly agitated, sedation was increased, vanco dc, [facility] with normal coronaries 04/30/25: off pressors, patient will benefit from cpap trial, precedex am, dc TLC, PICC line consult, cardiology started jardiance and metoprolol 05/01/25: PICC line placed at 7 am, on precedex infusion cpap started at 12: 30 pm ABG: PaFiO2 271, patient had an episode of agitation HR went up to 170s, afib with RVR, amiodarone drip was ordered, but after the agitation episode resolves, HR went down, right now patient is calm, extubated at 2 pm. 05/02/25: extubated, repleted K, agitated, adding Seroquel. pending bedside swallow, off pressors 05/03/25: bruise on neck expanding, hb drop. sending for CT, start oral feeding, holding lasix for now, increasing GDMT. avoid CCB. CT showed active bleeding, decision to transfer [facility] for CT/vasc. ss consult placed. trend HH. patient was intubated for airway protection 05/04/25: patient was seen by IR, neck angiogram done with active bleeding stopped. pressor low dose likely sedation related. c/w to trend h/h. plt >100, given vit k. 05/05/25: extend discussion with the family today and Dr Kumar IR: positive pressure of the ventilator is helping to control the bleeding, we are going to wait until hematoma is decreasing to do another intervention, possibility of tracheostomy and stent placement were discussed with the family, risk of stroke were discussed, if hb and platelets are stable and if is not active bleeding expectant management will be done, there is not expansible hematoma, pseudomonas is growing in new sputum culture, still sensible to zosyn, we are going to restart the feedings, amiodarone once daily, no anticoagulation, levophed 2 mcg 05/06/25: his HR has been into the 40s, possible sick sinus syndrome, amiodarone DC, dopamine fixed dose started, levophed titrate down, T max 100, vancomycin will be started, free water started due to hypernatremia, the ecchymosis is migrating to the lower body, his hb is stable, extensive discussion with the family about the plan, 05/07/25: HB 9,.9 plt 98, hematoma at the neck looks bigger, STAT angioct scan was done: showing Large heterogeneous hematoma is seen in the right lower neck which measures 9.9 x 5.9 cm and No evidence of acute arterial extravasation or injury. platelets were given. Case discussed with Dr Fernandez, who stated no need of stent at the moment Na 151 d5w 50cc/h, vancomycin was added Objective vital signs Vital Sign Date Time Temp Pulse Resp B/P (MAP) Pulse Ox O2 Delivery O2 Flow Rate FiO2 05/07/25 21:00 99.0 49 16 119/50 (73) 100 210.2 05/07/25 20:12 30 05/07/25 20:00 Mechanical Ventilator+ Total Intake and Output 05/06/25 05/06/25 05/07/25 15:00 23:00 07:00 Intake Total 338.438 ml 1076.781 ml 645.930 ml Output Total 700 ml 1050 ml Balance 338.438 ml 376.781 ml -404.070 ml medications Current Medications Medications Dose Ordered Sig/Jose Alfredo Route Start Time Stop Time Status Last Admin Dose Admin Acetaminophen 650 mg Q6HP PRN PO 04/23/25 05:00 05/02/25 21:33 650 MG Propofol 100 ml @ 2.268 mls/ hr Q24H IV 04/23/25 20:45 05/01/25 04:51 2.268 MLS/HR Fentanyl Citrate 250 ml @ 2.5 mls/hr Q24H IV 04/23/25 20:45 05/07/25 18:27 17.5 MLS/HR Midazolam HCl 50 ml @ 1 mls/hr Q24H IV 04/23/25 23:15 05/07/25 16:35 5 MLS/HR Piperacillin Sod/ Tazobactam Sod 100 ml @ 25 mls/hr Q8HR IV 04/24/25 06:00 05/07/25 13:58 25 MLS/HR Pantoprazole Sodium 40 mg DAILY IV 04/28/25 10:00 05/07/25 09:11 40 MG Lactulose 30 ml BID PO 04/28/25 10:00 05/07/25 09:11 30 ML Empaglifozin 10 mg DAILY PO 05/01/25 10:00 05/07/25 09:11 10 MG Sodium Chloride 10 ml QSHIFT@ IV 05/01/25 10:00 05/07/25 09:12 10 ML Enteral Nutritional Formula 1,000 ml 60ML/HR GT 05/05/25 16:45 05/06/25 22:26 1,000 ML Purified Water 200 ml Q6HR GT 05/06/25 12:00 05/07/25 17:38 200 ML Norepinephrine Bitartrate 250 ml @ 3.75 mls/hr Q24H IV 05/06/25 14:45 05/06/25 22:08 0.938 MLS/HR Vancomycin HCl 0 ml @ 0 mls/hr UD IV 05/06/25 18:15 Atropine Sulfate 1 mg UD PRN IV 05/07/25 02:00 Dextrose 1,000 ml @ 50 mls/hr Q20H IV 05/07/25 13:00 05/07/25 17:05 50 MLS/HR Vancomycin HCl 150 ml @ 100 mls/hr Q12H IV 05/07/25 22:00 Dopamine HCl/ Dextrose 250 ml @ 4.59 mls/hr Q24H IV 05/07/25 16:15 05/07/25 16:03 4.59 MLS/HR Diagnostic Test (Pha) 1 strip Q6HR 05/07/25 18:00 Insulin Human Regular Q6HR SC 05/07/25 18:00 Dextrose 50 ml UD PRN IV 05/07/25 18:00 Examination General Appearance: TV 450 RR 16 FIO2 30 PEEP 8 HEENT: Atraumatic, PERRLA, EOMI, Mucous membr. moist/pink, the hematoma looks bigger but appears to be undergoing resorption, is migrated along the subcutaneous to the back and flanks Respiratory: Bilateral basal crackles Cardiovascular: rhythmic HR 50 Abdominal: Normal bowel sounds, Soft, No tenderness, No hepatospenomegaly, No masses Extremities: Edema, PICC line right arm Skin: No rashes, No breakdown, No significant lesion laboratory and microbiology Laboratory Tests 05/07/25 19:12 05/07/25 03:00 Test 05/07/25 03:00 Range/Units Serum Glucose 196 H 74-106 mg/dL Microbiology Date/Time Source Procedure Growth Status 05/03/25 20:20 Trachea Gram Stain - Final Complete 05/03/25 20:20 Respiratory Culture - Final Pseudomonas aeruginosa Complete 04/28/25 12:55 Pleural Fluid Gram Stain - Final Complete 04/28/25 12:55 Pleural Fluid Aerobic Culture - Final Complete 04/24/25 01:45 Blood Blood Culture - Final NO GROWTH AFTER 5 DAYS OF INCUBATION. Complete 04/23/25 21:00 Sputum Expectorated Sputum Gram Stain - Final Complete 04/23/25 21:00 Respiratory Culture - Final Klebsiella pneumoniae Complete 04/23/25 19:00 Voided Urine Urine Culture - Final Complete Problem List/Assessment/Plan Problem List/Assessment/Plan Neurologic #Acute metabolic encephalopathy due to hypercapnic respiratory failure sedation: fentanyl and midazolam Cardiovascular #Acute exacerbation of heart failure with possible reduced ejection fraction #Septic shock ECHO EF 25%: severe dilated cavities, LHC no significant CAD Cardiology on board GDMT: jardiance 10 mg levoped 0.5 mcg #New onset atrial flutter 2-1 AV conduction with RVR resolved #Possible sick sinus syndrome #Hypertensive emergency resolved #Hypertensive heart disease with systolic failure #sp CVC removal from right brachiocephalic/subclavian artery #neck hematoma hb stable, patient is having a bruise, migrating to the back, no expansive hematoma at the moment 05/05/25: extend discussion with the family today and Dr Kumar IR: positive pressure of the ventilator is helping to control the bleeding, we are going to wait until hematoma is decreasing to do another intervention, possibility of tracheostomy and stent placement were discussed with the family, risk of stroke were discussed, if hb and platelets are stable and if is not active bleeding, expectant management will be carried, there is not expansible hematoma, pseudomonas is growing in new sputum culture, still sensible to zosyn, we are going to restart the feedings, amiodarone once daily, no anticoagulation, levophed 2 mcg 05/06/25: his HR has been into the 40s, possible sick sinus syndrome, amiodarone DC, dopamine fixed dose started, levophed titrate down, T max 100, vancomycin will be started, free water started due to hypernatremia, the ecchymosis is migrating to the lower body, his hb is stable, extensive discussion with the family about the plan 05/07/25: HB 9,.9 plt 98, hematoma at the neck looks bigger, STAT angioct scan was done: showing Large heterogeneous hematoma is seen in the right lower neck which measures 9.9 x 5.9 cm and No evidence of acute arterial extravasation or injury. platelets were given. Case discussed with Dr Fernandez, who stated no need of stent at the moment Na 151 d5w 50cc/h, vancomycin was added Respiratory #Septic shock #Acute respiratory failure due to COPD exacerbation and heart failure #s/p mechanical ventilation #Respiratory alkalosis #Bilateral pleural effusions L>R at admission: likely parapneumonic Thoracentesis done 1.3 LT drained: exudate #pneumonia gram+/ gram - due to klebsiella pneumoniae and pseudomona aeruginosa #Severe respiratory acidosis resolved TV 450 RR 16 FIO2 30 PEEP 8 ph 7.400 pco2 42 po2 89.6 hco3 28.6 Zosyn and vancomycin Endocrinology #DM type 2, hba1c 6.7 ISS, moderate #Hypernatremia d5w% 50 cc/h Renal #Hyperkalemia, resolved #BAO due to VMN resolved IV insulin and furosemide given GI tube feedings: resume feedings #Mild Hyperbillirubinemia #Constipation resolved lactulose due to constipation Hem/onc #Anemia, normochromic, normocytic: 9.9 #Thrombocytopenia: 98 monitor, transfusion of 1 apheresis of platelets Lines: PICC line right upper arm 05/01/25 intubation 04/23/25 extubated 05/01/25 reintubated 05/04/25 kenney catheter 04/23/[address] Corrales Full code Time spent on critical care 114 min excluding procedures and including discussion with family and radiology No anticoagulation, high risk of bleeding PUD prophylaxis: protonix IV Plan discussed with: Spouse, Daughter, Other (rn) My Orders My Orders Orders - MIS REYEZ RESIDENT Procedure Category Date Status Time Chest Xray 1 View XY 05/06/25 Resulted 22:01 Abg W/ Co-Ox RT 05/07/25 Logged 04:00 Frozen Plasma BBK 05/07/25 Logged 09:00 Communication Order ORDERS 05/07/25 Transmitted 09:00 Vancomycin Per AV 05/08/25 In Process Pharmacy Protoc 21:00 Vancomycin,Trough LAB 05/08/25 Verified 21:00 Complete Blood Count LAB 05/08/25 Verified 04:00 Creatinine LAB 05/08/25 Verified 04:00 Communication Order ORDERS 05/07/25 Transmitted 09:25 [address] Ang[address]ck [address] 05/07/25 Resulted 09:28 D5w 5% (Dextrose 5%) PHA 05/07/25 In Process 13:00 Vancomycin PHA 05/07/25 In Process 750mg/150ml 22:00 Glucose Blood PHA 05/07/25 In Process (Accu-Chek Comfort 18:00 Insulin R (Human) PHA 05/07/25 In Process (Insulin R) 18:00 Dextrose 50% Syringe PHA 05/07/25 In Process 18:00 Comprehensive LAB 05/08/25 Verified Metabolic Panel 04:00 PTPTT LAB 05/08/25 Verified 04:00 Chest Xray 1 View XY 05/08/25 Logged 04:00 Abg W/ Co-Ox RT 05/08/25 Logged 04:00 Dietary Evaluation Review Comments: Nutrition Recommendation: 1. TF Vital AF 1.2 Luis Enrique @ 60 ml/hr. start @ 20ml/hr, increase 10ml/hr Q4H until goal is reached. TF at goal volume provides 100% energy & protein needs - 1728 kcal, 108 gm protein, 1168 ml free water 2. Water flush 140ml Q6H if allowed 3. TPN if NPO> 7 days Expected Outcomes/Goals: To meet >75% estimated needs Fu 2-3 days Date of Service: May 07, 2025 Billing Provider: PAMELA CORRALES MD Common Visit Codes: [id number] CARE 30-74 MIN, [id number] CARE-EACH +30MIN (x2) MIS REYEZ RESIDENT May 07, 2025 21:42 PAMELA CORRALES MD May 10, 2025 11:16
[2025-05-07] MEDS: VANCOMYCIN 750mg/150ml 150 ML IV SCH (22:21)
[2025-05-08] VITALS (109 sets, daily range): BP systolic 89–146; BP diastolic 37–60; PULSE 48–86; RESP 16–17; TEMP 98.4–99.5; O2SAT 99–100
[2025-05-08 03:01] LABS: Hematocrit 31.3 % (41.0-53.0); Hemoglobin 10.0 g/dL (13.5-17.5); Mean Corpuscular Hemoglobin 29.5 pg (28.0-32.0); Mean Corpuscular Volume 92.2 fL (80.0-100.0); Nucleated Red Blood Cells % 0.1 %
[2025-05-08 03:05] LABS: Alanine Aminotransferase 26 U/L (7-40); Alkaline Phosphatase 53 U/L (46-116); Anion Gap 8 (5-15); BUN/Creatinine Ratio 38.0 (10.0-20.0); Carbon Dioxide 30 mmol/L (20-31); INR 1.06 (0.9-1.15); Partial Thromboplastin Time 30.0 SEC (24.5-34.5); Prothrombin Time 11.2 sec (9.3-11.8)
[2025-05-08 03:06] LABS: Bilirubin, Total 0.8 mg/dL (0.2-1.0)
[2025-05-08 03:22] LABS: Albumin 2.8 g/dL (3.2-4.8); Blood Urea Nitrogen 30 mg/dL (9-23); Calcium 7.7 mg/dL (8.7-10.4); Chloride 111 mmol/L (98-107); Glucose 153 mg/dL (74-106); Potassium 3.4 mmol/L (3.5-5.1); Sodium 149 mmol/L (136-145); Total Protein 4.8 g/dL (5.7-8.2)
--- NOTE | 2025-05-08 05:50 | DVH ---
CHEST RADIOGRAPH Indication: intubated Technique: Single frontal view of the chest was obtained Comparison: XY CHEST XRAY 1 VIEW on DOS: 05/07/25 FINDINGS: Lines and Tubes: Right PICC terminates in the superior vena cava. Enteric tube terminates below the left hemidiaphragm and outside the field of view. The endotracheal tube terminates 2.3 cm above the c akil. Lungs: No focal consolidation. Pleura: Bilateral pleural effusions. No pneumothorax. Cardiomediastinal contours: Unremarkable Bones: No acute osseous abnormality. IMPRESSION: 1. Stable position of the support lines and tubes. 2. Bilateral pleural effusions.
[2025-05-08 06:24] LABS: Base Excess 3.4 mmol/L (-2.0-3.0)
[2025-05-08] MEDS: POTASSIUM EFFERVESENT TAB 25 MEQ GT ONE (08:04)
[2025-05-08] MEDS: MAGNESIUM SULFATE 1GM/100ML 100 ML IV ONE (08:04)
[2025-05-08 12:13] LABS: Potassium 3.7 mmol/L (3.5-5.1)
[2025-05-08 12:14] LABS: Anion Gap 6 (5-15); Carbon Dioxide 27 mmol/L (20-31)
[2025-05-08 12:19] LABS: BUN/Creatinine Ratio 30.1 (10.0-20.0)
[2025-05-08 12:20] LABS: Blood Urea Nitrogen 25 mg/dL (9-23); Calcium 8.1 mg/dL (8.7-10.4); Chloride 112 mmol/L (98-107); Glucose 220 mg/dL (74-106); Sodium 145 mmol/L (136-145)
--- NOTE | 2025-05-08 14:44 | DVHPNRES ---
Progress Note Date Seen: May 08, 2025 Resident Creating Document: MIS REYEZ RESIDENT Has the PT tested + for MRSA If YES, has PT been informed?: No Medical Necessity Reason Pt with a Central, PICC or Fol: Yes The following are medically ne: PICC Line, Kenney Catheter Reason for kenney catheter: Strict I&O Subjective Review of Systems Mr. Farley is a 79-year-old male who presents with a chief complaint of bilateral leg swelling. He reports a chronic history of leg swelling, previously managed with a medication obtained from [place], the name of which he cannot recall. He admits to not taking this medication for some time. The patient is a poor historian but endorses a past medical history of diabetes mellitus (DM), hypertension (HTN), and an unspecified "heart issue." He denies any recent chest pain, shortness of breath, or dizziness. On triage, his blood pressure was markedly elevated at 180/116 mmHg with a pulse of 140 bpm. Given his history and current presentation, differential diagnoses include fluid retention possibly due to cardiac or renal insufficiency, medication noncompliance, electrolyte imbalance, and other systemic causes. Past Medical History diabetes mellitus (DM), hypertension (HTN), and an unspecified "heart issue." Past Surgical History none Family History: None (Noncontributory) Smoke: No ALCOHOL: none Drugs: None Lives: with Family Domestic Violence: Neg 04/23/25: patient was found with high oxygen requirements, respiratory acidosis, BIPAP was placed, POCUS at bedside possible reduced ejection fraction and hypokinesis, patient is having acute respiratory failure due to acute exacerbation of heart failure and COPD, antibiotics and solumedrol were started, mild hypokalemia was resolved with IV insulin 10 ui and furosemide, patient still has HR above 130, carvedilol is added, patient is MARIELENA status 04/24/25: during the night of 04/23/25, patient started to be more hypercapnic and drowsy, not responding to BIPAP, so talking with bhavani family the decision was to intubate, also patient started to be hypotensive with the need of vasopressors, central line was attempted to be placed on right yugular vein but the catheter is found to be entering through the brachiocephalic (innominate) artery with its tip residing in the Aortic arch, AngioCT scan STAT confirmed the findings, general surgery was consulted who advice endovascular stent placement to span the defect in the artery by means of transfemoral arteriography done by Interventional Radiologist, the removal of the catheter was done successfully by Dr José ARZOLA (formal radiological report pending) , right now we are going to f/u hb and bed rest, family was informed about the interventions, consent forms were signed, at the moment on fentanyl and versed drip, levophed 7 mcg, ABG after procedure ph 7.47 pco2 38 po2 69.6 hco3 27.8 ,continue monitor 04/27/25: During the weekend, no bleeding from the puncture site, patient is being on afib, levophed was wean off and phenylephrine was started, also digoxin was on, low dose heparin was started due to high chadvasc. Also sedation vacation was done, but today at 4 am patient started to be agitated. His platelets are 129. Cardiology today, they changed digoxin to amiodarone. Anticoagulation was DC, he will benefit for cath due to EF 25% , possible on sunday, Lipid panel normal. 04/28/25: amiodarone dc by cardiology, off pressors, thoracentesis done, 1.3 LT drained, klebsiella positive in sputum, [facility] tomorrow 04/29/25: off pressors, HR in the 70s, patient was slightly agitated, sedation was increased, vanco dc, [facility] with normal coronaries 04/30/25: off pressors, patient will benefit from cpap trial, precedex am, dc TLC, PICC line consult, cardiology started jardiance and metoprolol 05/01/25: PICC line placed at 7 am, on precedex infusion cpap started at 12: 30 pm ABG: PaFiO2 271, patient had an episode of agitation HR went up to 170s, afib with RVR, amiodarone drip was ordered, but after the agitation episode resolves, HR went down, right now patient is calm, extubated at 2 pm. 05/02/25: extubated, repleted K, agitated, adding Seroquel. pending bedside swallow, off pressors 05/03/25: bruise on neck expanding, hb drop. sending for CT, start oral feeding, holding lasix for now, increasing GDMT. avoid CCB. CT showed active bleeding, decision to transfer [facility] for CT/vasc. ss consult placed. trend HH. patient was intubated for airway protection 05/04/25: patient was seen by IR, neck angiogram done with active bleeding stopped. pressor low dose likely sedation related. c/w to trend h/h. plt >100, given vit k. 05/05/25: extend discussion with the family today and Dr Kumar IR: positive pressure of the ventilator is helping to control the bleeding, we are going to wait until hematoma is decreasing to do another intervention, possibility of tracheostomy and stent placement were discussed with the family, risk of stroke were discussed, if hb and platelets are stable and if is not active bleeding expectant management will be done, there is not expansible hematoma, pseudomonas is growing in new sputum culture, still sensible to zosyn, we are going to restart the feedings, amiodarone once daily, no anticoagulation, levophed 2 mcg 05/06/25: his HR has been into the 40s, possible sick sinus syndrome, amiodarone DC, dopamine fixed dose started, levophed titrate down, T max 100, vancomycin will be started, free water started due to hypernatremia, the ecchymosis is migrating to the lower body, his hb is stable, extensive discussion with the family about the plan, 05/07/25: HB 9,.9 plt 98, hematoma at the neck looks bigger, STAT angioct scan was done: showing Large heterogeneous hematoma is seen in the right lower neck which measures 9.9 x 5.9 cm and No evidence of acute arterial extravasation or injury. platelets were given. Case discussed with Dr Fernandez, who stated no need of stent at the moment Na 151 d5w 50cc/h, vancomycin was added 05/08/25: hb 10 plat 109 --> 98, new apheresis of platelets given, Na 145, dc d5w, HR is trending slowly higher, we are going to continue dopamine fixed dose, but the risk of going back to afib exist, levophed 1 mcg, IR, Dr Fernandez, came at bedside, explained to the family that in case of active bleeding stent will be placed and the risk of adverse events is about 15-20% (stroke, stent thrombosis), also the possibility of tracheostomy is on the table if hematoma is not subsiding. Bag of 5 pounds is on the hematoma to help with resorption Objective vital signs Vital Sign Date Time Temp Pulse Resp B/P (MAP) Pulse Ox O2 Delivery O2 Flow Rate FiO2 05/08/25 14:02 100/49 05/08/25 14:00 30 05/08/25 14:00 99.1 58 16 100 210.4 05/08/25 14:00 Mechanical Ventilator+ Total Intake and Output 05/07/25 05/07/25 05/08/25 15:00 23:00 07:00 Intake Total 490.100 ml 1831.009 ml 1902.720 ml Output Total 800 ml 1200 ml Balance 490.100 ml 1031.009 ml 702.720 ml medications Current Medications Medications Dose Ordered Sig/Jose Alfredo Route Start Time Stop Time Status Last Admin Dose Admin Acetaminophen 650 mg Q6HP PRN PO 04/23/25 05:00 05/02/25 21:33 650 MG Propofol 100 ml @ 2.268 mls/ hr Q24H IV 04/23/25 20:45 05/01/25 04:51 2.268 MLS/HR Fentanyl Citrate 250 ml @ 2.5 mls/hr Q24H IV 04/23/25 20:45 05/08/25 08:19 20 MLS/HR Midazolam HCl 50 ml @ 1 mls/hr Q24H IV 04/23/25 23:15 05/08/25 14:02 5 MLS/HR Piperacillin Sod/ Tazobactam Sod 100 ml @ 25 mls/hr Q8HR IV 04/24/25 06:00 05/08/25 13:13 25 MLS/HR Pantoprazole Sodium 40 mg DAILY IV 04/28/25 10:00 05/08/25 09:28 40 MG Lactulose 30 ml BID PO 04/28/25 10:00 05/08/25 09:28 30 ML Empaglifozin 10 mg DAILY PO 05/01/25 10:00 05/08/25 09:30 10 MG Sodium Chloride 10 ml QSHIFT@10,22 IV 05/01/25 10:00 05/08/25 09:30 10 ML Enteral Nutritional Formula 1,000 ml 60ML/HR GT 05/05/25 16:45 05/06/25 22:26 1,000 ML Purified Water 200 ml Q6HR GT 05/06/25 12:00 05/08/25 11:23 200 ML Norepinephrine Bitartrate 250 ml @ 3.75 mls/hr Q24H IV 05/06/25 14:45 05/08/25 08:05 1.875 MLS/HR Vancomycin HCl 0 ml @ 0 mls/hr UD IV 05/06/25 18:15 Atropine Sulfate 1 mg UD PRN IV 05/07/25 02:00 Vancomycin HCl 150 ml @ 100 mls/hr Q12H IV 05/07/25 22:00 05/08/25 10:56 100 MLS/HR Dopamine HCl/ Dextrose 250 ml @ 4.59 mls/hr Q24H IV 05/07/25 16:15 05/07/25 16:03 4.59 MLS/HR Diagnostic Test (Pha) 1 strip Q6HR 05/07/25 18:00 05/08/25 11:21 1 STRIP Insulin Human Regular Q6HR SC 05/07/25 18:00 05/08/25 11:27 6 UNITS Dextrose 50 ml UD PRN IV 05/07/25 18:00 Examination General Appearance: TV 450 RR 16 FIO2 30 PEEP 8 HEENT: Atraumatic, PERRLA, EOMI, Mucous membr. moist/pink, the hematoma is stable but appears to be undergoing resorption, is migrated along the subcutaneous to the back and flanks, weight of 5 pound is helping on the resorption Respiratory: Bilateral basal crackles Cardiovascular: rhythmic HR 50 Abdominal: Normal bowel sounds, Soft, No tenderness, No hepatospenomegaly, No masses Extremities: Edema, PICC line right arm Skin: No rashes, No breakdown, No significant lesion laboratory and microbiology Laboratory Tests 05/08/25 11:52 05/08/25 02:26 Test 05/08/25 11:52 Range/Units Serum Glucose 220 H 74-106 mg/dL Microbiology Date/Time Source Procedure Growth Status 05/03/25 20:20 Trachea Gram Stain - Final Complete 05/03/25 20:20 Respiratory Culture - Final Pseudomonas aeruginosa Complete 04/28/25 12:55 Pleural Fluid Gram Stain - Final Complete 04/28/25 12:55 Pleural Fluid Aerobic Culture - Final Complete 04/24/25 01:45 Blood Blood Culture - Final NO GROWTH AFTER 5 DAYS OF INCUBATION. Complete 04/23/25 21:00 Sputum Expectorated Sputum Gram Stain - Final Complete 04/23/25 21:00 Respiratory Culture - Final Klebsiella pneumoniae Complete 04/23/25 19:00 Voided Urine Urine Culture - Final Complete Problem List/Assessment/Plan Problem List/Assessment/Plan Neurologic #Acute metabolic encephalopathy due to hypercapnic respiratory failure sedation: fentanyl and midazolam Cardiovascular #Acute exacerbation of heart failure with possible reduced ejection fraction #Septic shock ECHO EF 25%: severe dilated cavities, LHC no significant CAD Cardiology on board GDMT: jardiance 10 mg levoped 0.5 mcg #New onset atrial flutter 2-1 AV conduction with RVR resolved #Possible sick sinus syndrome #Hypertensive emergency resolved #Hypertensive heart disease with systolic failure #sp CVC removal from right brachiocephalic/subclavian artery #neck hematoma hb stable, patient is having a bruise, migrating to the back, no expansive hematoma at the moment 05/05/25: extend discussion with the family today and Dr Kumar IR: positive pressure of the ventilator is helping to control the bleeding, we are going to wait until hematoma is decreasing to do another intervention, possibility of tracheostomy and stent placement were discussed with the family, risk of stroke were discussed, if hb and platelets are stable and if is not active bleeding, expectant management will be carried, there is not expansible hematoma, pseudomonas is growing in new sputum culture, still sensible to zosyn, we are going to restart the feedings, amiodarone once daily, no anticoagulation, levophed 2 mcg 05/06/25: his HR has been into the 40s, possible sick sinus syndrome, amiodarone DC, dopamine fixed dose started, levophed titrate down, T max 100, vancomycin will be started, free water started due to hypernatremia, the ecchymosis is migrating to the lower body, his hb is stable, extensive discussion with the family about the plan 05/07/25: HB 9,.9 plt 98, hematoma at the neck looks bigger, STAT angioct scan was done: showing Large heterogeneous hematoma is seen in the right lower neck which measures 9.9 x 5.9 cm and No evidence of acute arterial extravasation or injury. platelets were given. Case discussed with Dr Fernandez, who stated no need of stent at the moment Na 151 d5w 50cc/h, vancomycin was added 05/08/25: hb 10 plat 109 --> 98, new apheresis of platelets ordered, Na 145, dc d5w, HR is trending slowly higher, we are going to continue dopamine fixed dose, but the risk of going back to afib exist, levophed 1 mcg, IR, Dr Fernandez, came at bedside, explained to the family that in case of active bleeding stent will be placed and the risk of adverse events is about 15-20% (stroke, stent thrombosis), also the possibility of tracheostomy is on the table if hematoma is not subsiding. Bag of 5 pounds is on the hematoma to help with resorption Respiratory #Septic shock #Acute respiratory failure due to COPD exacerbation and heart failure #s/p mechanical ventilation #Respiratory alkalosis #Bilateral pleural effusions L>R at admission: likely parapneumonic Thoracentesis done 1.3 LT drained: exudate #pneumonia gram+/ gram - due to klebsiella pneumoniae and pseudomona aeruginosa #Severe respiratory acidosis resolved TV 450 RR 16 FIO2 30 PEEP 8 ph 7.407 pco2 46.5 po2 89.6 hco3 28.6 Zosyn and vancomycin Endocrinology #DM type 2, hba1c 6.7 ISS, mild #Hypernatremia resolved dc d5w% 50 cc/h Renal #Hyperkalemia, resolved #BAO due to VMN resolved IV insulin and furosemide given GI tube feedings: resume feedings #Mild Hyperbillirubinemia #Constipation resolved lactulose due to constipation Hem/onc #Anemia, normochromic, normocytic: 10 #Thrombocytopenia: 98 monitor, transfusion of 2 apheresis of platelets Lines: PICC line right upper arm 05/01/25 intubation 04/23/25 extubated 05/01/25 reintubated 05/04/25 kenney catheter 04/23/[address] Tenorio Full code Time spent on critical care 114 min excluding procedures and including discussion with family No anticoagulation, high risk of bleeding PUD prophylaxis: protonix IV Plan discussed with: Spouse, Daughter My Orders My Orders Orders - IMS REYEZ Procedure Category Date Status Time Glucose Blood PHA 05/07/25 In Process (Accu-Chek Comfort 18:00 Insulin R (Human) PHA 05/07/25 In Process (Insulin R) 18:00 Dextrose 50% Syringe PHA 05/07/25 In Process 18:00 Chest Xray 1 View XY 05/08/25 Resulted 04:00 Abg W/ Co-Ox RT 05/08/25 Logged 04:00 Pheresis Platelets BBK 05/08/25 Logged 12:53 Magnesium LAB 05/09/25 Verified 04:00 Potassium LAB 05/09/25 Verified 04:00 Dietary Evaluation Review Comments: Nutrition Recommendation: 1. TF Vital AF 1.2 Luis Enrique @ 60 ml/hr. start @ 20ml/hr, increase 10ml/hr Q4H until goal is reached. TF at goal volume provides 100% energy & protein needs - 1728 kcal, 108 gm protein, 1168 ml free water 2. Water flush 140ml Q6H if allowed 3. TPN if NPO> 7 days Expected Outcomes/Goals: To meet >75% estimated needs Fu 2-3 days MIS REYEZ RESIDENT May 08, 2025 14:44
[2025-05-08] MEDS: ACCU-CHEK COMFORT CURVE STRIP VI SCH (17:24)
[2025-05-08] MEDS: InsuLIN REG 1unit/0.01ml Soln (100units/ml) SC SCH (17:26)
[2025-05-09] VITALS (106 sets, daily range): BP systolic 79–142; BP diastolic 39–89; PULSE 55–168; RESP 12–30; TEMP 98.2–100.7; O2SAT 97–100
[2025-05-09 03:48] LABS: Hematocrit 29.2 % (41.0-53.0); Hemoglobin 9.6 g/dL (13.5-17.5); Mean Corpuscular Hemoglobin 30.0 pg (28.0-32.0); Mean Corpuscular Volume 91.4 fL (80.0-100.0); Nucleated Red Blood Cells % 0.2 %
[2025-05-09 04:04] LABS: Alanine Aminotransferase 21 U/L (7-40); Alkaline Phosphatase 51 U/L (46-116); Anion Gap 7 (5-15); BUN/Creatinine Ratio 36.1 (10.0-20.0); Bilirubin, Total 0.7 mg/dL (0.2-1.0); Carbon Dioxide 30 mmol/L (20-31); Magnesium 2.0 mg/dL (1.6-2.6); Potassium 3.9 mmol/L (3.5-5.1)
[2025-05-09 04:06] LABS: Albumin 2.6 g/dL (3.2-4.8); Blood Urea Nitrogen 30 mg/dL (9-23); Calcium 8.5 mg/dL (8.7-10.4); Chloride 110 mmol/L (98-107); Glucose 140 mg/dL (74-106); Sodium 147 mmol/L (136-145); Total Protein 4.6 g/dL (5.7-8.2)
[2025-05-09 04:14] LABS: INR 1.03 (0.9-1.15); Partial Thromboplastin Time 32.2 SEC (24.5-34.5); Prothrombin Time 10.9 sec (9.3-11.8)
--- NOTE | 2025-05-09 06:21 | DVH ---
CHEST RADIOGRAPH Indication: intubated Technique: Single frontal view of the chest was obtained COMPARISON: XY CHEST XRAY 1 VIEW on DOS: 05/08/25, XY CHEST XRAY 1 VIEW on DOS: 05/07/25, XY CHEST XRAY 1 VIEW on DOS: 05/06/25, XY CHEST PORTABLE on DOS: 05/05/25, XY CHEST PORTABLE on DOS: 05/04/25 FINDINGS: Lines and Tubes: Unchanged. Lungs: Stable appearing small bilateral pleural effusions. No evidence of focal consolidation. No pneumothorax. Cardiomediastinal contours: Unremarkable Bones: Unremarkable IMPRESSION: 1. Stable small bilateral pleural effusions. 2. Lines and tubes unchanged.
[2025-05-09 07:24] LABS: Base Excess -0.1 mmol/L (-2.0-3.0)
--- NOTE | 2025-05-09 09:36 | DVHPN2 ---
Subjective Review of Systems Mr. Farley is a 79-year-old male who presents with a chief complaint of bilateral leg swelling. He reports a chronic history of leg swelling, previously managed with a medication obtained from [place], the name of which he cannot recall. He admits to not taking this medication for some time. The patient is a poor historian but endorses a past medical history of diabetes mellitus (DM), hypertension (HTN), and an unspecified "heart issue." He denies any recent chest pain, shortness of breath, or dizziness. On triage, his blood pressure was markedly elevated at 180/116 mmHg with a pulse of 140 bpm. Given his history and current presentation, differential diagnoses include fluid retention possibly due to cardiac or renal insufficiency, medication noncompliance, electrolyte imbalance, and other systemic causes. Past Medical History diabetes mellitus (DM), hypertension (HTN), and an unspecified "heart issue." Past Surgical History none Family History: None (Noncontributory) Smoke: No ALCOHOL: none Drugs: None Lives: with Family Domestic Violence: Neg 04/23/25: patient was found with high oxygen requirements, respiratory acidosis, BIPAP was placed, POCUS at bedside possible reduced ejection fraction and hypokinesis, patient is having acute respiratory failure due to acute exacerbation of heart failure and COPD, antibiotics and solumedrol were started, mild hypokalemia was resolved with IV insulin 10 ui and furosemide, patient still has HR above 130, carvedilol is added, patient is MARIELENA status 04/24/25: during the night of 04/23/25, patient started to be more hypercapnic and drowsy, not responding to BIPAP, so talking with bhavani family the decision was to intubate, also patient started to be hypotensive with the need of vasopressors, central line was attempted to be placed on right yugular vein but the catheter is found to be entering through the brachiocephalic (innominate) artery with its tip residing in the Aortic arch, AngioCT scan STAT confirmed the findings, general surgery was consulted who advice endovascular stent placement to span the defect in the artery by means of transfemoral arteriography done by Interventional Radiologist, the removal of the catheter was done successfully by Dr José ARZOLA (formal radiological report pending) , right now we are going to f/u hb and bed rest, family was informed about the interventions, consent forms were signed, at the moment on fentanyl and versed drip, levophed 7 mcg, ABG after procedure ph 7.47 pco2 38 po2 69.6 hco3 27.8 ,continue monitor 04/27/25: During the weekend, no bleeding from the puncture site, patient is being on afib, levophed was wean off and phenylephrine was started, also digoxin was on, low dose heparin was started due to high chadvasc. Also sedation vacation was done, but today at 4 am patient started to be agitated. His platelets are 129. Cardiology today, they changed digoxin to amiodarone. Anticoagulation was DC, he will benefit for cath due to EF 25% , possible on sunday, Lipid panel normal. 04/28/25: amiodarone dc by cardiology, off pressors, thoracentesis done, 1.3 LT drained, klebsiella positive in sputum, [facility] tomorrow 04/29/25: off pressors, HR in the 70s, patient was slightly agitated, sedation was increased, vanco dc, [facility] with normal coronaries 04/30/25: off pressors, patient will benefit from cpap trial, precedex am, dc TLC, PICC line consult, cardiology started jardiance and metoprolol 05/01/25: PICC line placed at 7 am, on precedex infusion cpap started at 12: 30 pm ABG: PaFiO2 271, patient had an episode of agitation HR went up to 170s, afib with RVR, amiodarone drip was ordered, but after the agitation episode resolves, HR went down, right now patient is calm, extubated at 2 pm. 05/02/25: extubated, repleted K, agitated, adding Seroquel. pending bedside swallow, off pressors 05/03/25: bruise on neck expanding, hb drop. sending for CT, start oral feeding, holding lasix for now, increasing GDMT. avoid CCB. CT showed active bleeding, decision to transfer [facility] for CT/vasc. ss consult placed. trend HH. patient was intubated for airway protection 05/04/25: patient was seen by IR, neck angiogram done with active bleeding stopped. pressor low dose likely sedation related. c/w to trend h/h. plt >100, given vit k. 05/05/25: extend discussion with the family today and Dr Kumar IR: positive pressure of the ventilator is helping to control the bleeding, we are going to wait until hematoma is decreasing to do another intervention, possibility of tracheostomy and stent placement were discussed with the family, risk of stroke were discussed, if hb and platelets are stable and if is not active bleeding expectant management will be done, there is not expansible hematoma, pseudomonas is growing in new sputum culture, still sensible to zosyn, we are going to restart the feedings, amiodarone once daily, no anticoagulation, levophed 2 mcg 05/06/25: his HR has been into the 40s, possible sick sinus syndrome, amiodarone DC, dopamine fixed dose started, levophed titrate down, T max 100, vancomycin will be started, free water started due to hypernatremia, the ecchymosis is migrating to the lower body, his hb is stable, extensive discussion with the family about the plan, 05/07/25: HB 9,.9 plt 98, hematoma at the neck looks bigger, STAT angioct scan was done: showing Large heterogeneous hematoma is seen in the right lower neck which measures 9.9 x 5.9 cm and No evidence of acute arterial extravasation or injury. platelets were given. Case discussed with Dr Fernandez, who stated no need of stent at the moment Na 151 d5w 50cc/h, vancomycin was added 05/08/25: hb 10 plat 109 --> 98, new apheresis of platelets given, Na 145, dc d5w, HR is trending slowly higher, we are going to continue dopamine fixed dose, but the risk of going back to afib exist, levophed 1 mcg, IR, Dr Fernandez, came at bedside, explained to the family that in case of active bleeding stent will be placed and the risk of adverse events is about 15-20% (stroke, stent thrombosis), also the possibility of tracheostomy is on the table if hematoma is not subsiding. Bag of 5 pounds is on the hematoma to help with resorption 05/09-initially here for pneumonia. Central line was tried for Levophed which was inadvertently inserted into brachiocephalic CBC, which led to bleed evaluated by IR concluded as controlled bleed likely hematoma. Area is marked there is some mild increase in ecchymosis on right neck but not significant from marked area. Fecal not repeat imaging today. Also having thrombocytopenia stable today at 1:10 a.m.. We will transfuse if platelets below 100. We will continue primary team's plan no sedation vacations/CPAP trial over the weekend. Patient bradycardic currently on Levophed 0.5 dopamine drip to. Other drips include Versed, fentanyl, antibiotics Zosyn. Patient getting enteral feeds OG tube with free water flushes. Ventilated a.c. 16/450/30%/8.0. Breath sounds bilateral, bradycardic on exam, no edema, pulses present, hematoma right shoulder acknowledged. We will continue to monitor. Reviewed: H&P Changes from previous H/P or p: No Changes General: Per HPI Eyes: No Pain, No Vision change, No Conjunctivae inflammation, No Eyelid inflammation, No Other, No Redness ENT: No Ear pain, No Ear discharge, No Nose pain, No Nose discharge, No Nose congestion, No Mouth pain, No Mouth swelling, No Throat pain, No Throat swelling, No Other Cardiovascular: No Chest Pain; Palpitations, Paroxysmal Noc. Dyspnea, Edema; No Lt Headedness, No Other Respiratory: Cough, Dry, Shortness of breath, SOB with excertion Gastrointestinal: No Nausea, No Vomiting, No Abdominal Pain, No Diarrhea, No Constipation, No Melena, No Hematochezia, No Other Genitourinary: No Dysuria, No Frequency, No Incontinence, No Hematuria, No Retention, No Other Musculoskeletal: other (Bilateral leg swelling); No neck pain, No shoulder pain, No arm pain, No back pain, No hand pain, No leg pain, No foot pain Skin: No Rash, No Lesions, No Jaundice, No Bruising, No Other Objective Vitals Vital Signs Date Time Temp Pulse Resp B/P (MAP) Pulse Ox O2 Delivery O2 Flow Rate FiO2 05/09/25 09:15 99.1 60 13 109/47 (67) 100 210.4 05/09/25 07:30 Mechanical Ventilator+ 30 30 Intake/Output Intake and Output 05/09/25 07:00 Intake Total 3934.475 ml Output Total 1625 ml Balance 2309.475 ml Intake Oral 920 ml IV Total 1531.475 ml Tube Feeding 1225 ml Blood Product 258 ml Output Urine Total 1625 ml Exam General Appearance: sedated ventilated HEENT: Atraumatic, PERRLA, EOMI, Mucous membr. moist/pink, the hematoma is stable but appears to be undergoing resorption, is migrated along the subcutaneous to the back and flanks, weight of 5 pound is helping on the resorption Respiratory: Bilateral basal crackles Cardiovascular: rhythmic HR 50 Abdominal: Normal bowel sounds, Soft, No tenderness, No hepatospenomegaly, No masses Extremities: Edema, PICC line right arm Skin: No rashes, No breakdown, No significant lesion Medications Current Medications Medications Dose Ordered Sig/Jose Alfredo Route Start Time Stop Time Status Last Admin Dose Admin Acetaminophen 650 mg Q6HP PRN PO 04/23/25 05:00 05/02/25 21:33 650 MG Propofol 100 ml @ 2.268 mls/ hr Q24H IV 04/23/25 20:45 05/01/25 04:51 2.268 MLS/HR Fentanyl Citrate 250 ml @ 2.5 mls/hr Q24H IV 04/23/25 20:45 05/09/25 06:41 25 MLS/HR Midazolam HCl 50 ml @ 1 mls/hr Q24H IV 04/23/25 23:15 05/09/25 09:10 7 MLS/HR Piperacillin Sod/ Tazobactam Sod 100 ml @ 25 mls/hr Q8HR IV 04/24/25 06:00 05/09/25 05:41 25 MLS/HR Pantoprazole Sodium 40 mg DAILY IV 04/28/25 10:00 05/09/25 08:49 40 MG Lactulose 30 ml BID PO 04/28/25 10:00 05/09/25 08:49 30 ML Empaglifozin 10 mg DAILY PO 05/01/25 10:00 05/09/25 08:49 10 MG Sodium Chloride 10 ml QSHIFT@10,22 IV 05/01/25 10:00 05/09/25 08:49 10 ML Enteral Nutritional Formula 1,000 ml 60ML/HR GT 05/05/25 16:45 05/06/25 22:26 1,000 ML Purified Water 200 ml Q6HR GT 05/06/25 12:00 05/09/25 05:41 200 ML Norepinephrine Bitartrate 250 ml @ 3.75 mls/hr Q24H IV 05/06/25 14:45 05/08/25 08:05 1.875 MLS/HR Vancomycin HCl 0 ml @ 0 mls/hr UD IV 05/06/25 18:15 Atropine Sulfate 1 mg UD PRN IV 05/07/25 02:00 Vancomycin HCl 150 ml @ 100 mls/hr Q12H IV 05/07/25 22:00 05/09/25 08:49 100 MLS/HR Dopamine HCl/ Dextrose 250 ml @ 4.59 mls/hr Q24H IV 05/07/25 16:15 05/08/25 16:04 4.59 MLS/HR Dextrose 50 ml UD PRN IV 05/07/25 18:00 Insulin Human Regular ACHS SC 05/08/25 17:00 05/09/25 06:13 2 UNITS Diagnostic Test (Pha) 1 strip ACHS 05/08/25 17:00 05/09/25 06:12 1 STRIP Laboratory Results Laboratory Tests 05/09/25 03:29 Chemistry Test 05/08/25 11:52 05/09/25 03:29 Calcium Level 8.1 mg/dL (8.7-10.4) L 8.5 mg/dL (8.7-10.4) L Albumin 2.6 g/dL (3.2-4.8) L Magnesium Level 2.0 mg/dL (1.6-2.6) Total Protein 4.6 g/dL (5.7-8.2) L Coagulation Test 05/09/25 03:29 Prothrombin Time 10.9 sec (9.3-11.8) Prothrombin Time INR 1.03 (0.9-1.15) Activated Partial Thromboplast Time 32.2 SEC (24.5-34.5) LFT Test 05/09/25 03:29 Alanine Aminotransferase (ALT) 21 U/L (7-40) Alkaline Phosphatase 51 U/L (46-116) Aspartate Amino Transferase (AST) 27 U/L (13-40) Total Bilirubin 0.7 mg/dL (0.2-1.0) Urinalysis Test 04/23/25 19:00 Urine Color Light-yellow (Yellow) Urine Clarity Turbid (Clear) H Urine pH 5.0 (5.0-9.0) Urine Specific [place] 1.006 (1.001-1.035) Urine Protein Negative (Negative) Urine Ketones Negative (Negative) Urine Blood 2+ /uL (Negative) H Urine Nitrite Negative (Negative) Urine Bilirubin Negative (Negative) Urine Urobilinogen Normal mg/dL (Negative) Urine Leukocyte Esterase Negative /uL (Negative) Urine RBC 10 /hpf (0 - 3) Urine Microscopic WBC 1 /HPF (0-3) Urine Squamous Epithelial Cells Few /hpf (<5) Urine Bacteria Few /hpf (None Seen) H Urine Mucus Few (None Seen) Urine Glucose Normal mg/dL (Normal) Blood Gas Results Test 05/09/25 07:17 Arterial Blood pH 7.377 (7.350-7.450) FiO2 % 30.0 Microbiology Microbiology Date/Time Source Procedure Growth Status 05/03/25 20:20 Trachea Gram Stain - Final Complete 05/03/25 20:20 Respiratory Culture - Final Pseudomonas aeruginosa Complete 04/28/25 12:55 Pleural Fluid Gram Stain - Final Complete 04/28/25 12:55 Pleural Fluid Aerobic Culture - Final Complete 04/24/25 01:45 Blood Blood Culture - Final NO GROWTH AFTER 5 DAYS OF INCUBATION. Complete 04/23/25 21:00 Sputum Expectorated Sputum Gram Stain - Final Complete 04/23/25 21:00 Respiratory Culture - Final Klebsiella pneumoniae Complete 04/23/25 19:00 Voided Urine Urine Culture - Final Complete Labs and/or images reviewed: Labs reviewed by me, Image(s) reviewed by me Assessment/Plan Assessment/Plan Neurologic #Acute metabolic encephalopathy due to hypercapnic respiratory failure sedation: fentanyl and midazolam Cardiovascular #Acute exacerbation of heart failure with possible reduced ejection fraction #Septic shock ECHO EF 25%: severe dilated cavities, LHC no significant CAD Cardiology on board GDMT: jardiance 10 mg levoped 0.5 mcg #New onset atrial flutter 2-1 AV conduction with RVR resolved #Possible sick sinus syndrome #Hypertensive emergency resolved #Hypertensive heart disease with systolic failure #sp CVC removal from right brachiocephalic/subclavian artery #neck hematoma hb stable, patient is having a bruise, migrating to the back, no expansive hematoma at the moment 05/05/25: extend discussion with the family today and Dr Kumar IR: positive pressure of the ventilator is helping to control the bleeding, we are going to wait until hematoma is decreasing to do another intervention, possibility of tracheostomy and stent placement were discussed with the family, risk of stroke were discussed, if hb and platelets are stable and if is not active bleeding, expectant management will be carried, there is not expansible hematoma, pseudomonas is growing in new sputum culture, still sensible to zosyn, we are going to restart the feedings, amiodarone once daily, no anticoagulation, levophed 2 mcg 05/06/25: his HR has been into the 40s, possible sick sinus syndrome, amiodarone DC, dopamine fixed dose started, levophed titrate down, T max 100, vancomycin will be started, free water started due to hypernatremia, the ecchymosis is migrating to the lower body, his hb is stable, extensive discussion with the family about the plan 05/07/25: HB 9,.9 plt 98, hematoma at the neck looks bigger, STAT angioct scan was done: showing Large heterogeneous hematoma is seen in the right lower neck which measures 9.9 x 5.9 cm and No evidence of acute arterial extravasation or injury. platelets were given. Case discussed with Dr Fernandez, who stated no need of stent at the moment Na 151 d5w 50cc/h, vancomycin was added 05/08/25: hb 10 plat 109 --> 98, new apheresis of platelets ordered, Na 145, dc d5w, HR is trending slowly higher, we are going to continue dopamine fixed dose, but the risk of going back to afib exist, levophed 1 mcg, IR, Dr Fernandez, came at bedside, explained to the family that in case of active bleeding stent will be placed and the risk of adverse events is about 15-20% (stroke, stent thrombosis), also the possibility of tracheostomy is on the table if hematoma is not subsiding. Bag of 5 pounds is on the hematoma to help with resorption Respiratory #Septic shock #Acute respiratory failure due to COPD exacerbation and heart failure #s/p mechanical ventilation #Respiratory alkalosis #Bilateral pleural effusions L>R at admission: likely parapneumonic Thoracentesis done 1.3 LT drained: exudate #pneumonia gram+/ gram - due to klebsiella pneumoniae and pseudomona aeruginosa #Severe respiratory acidosis resolved TV 450 RR 16 FIO2 30 PEEP 8 ph 7.407 pco2 46.5 po2 89.6 hco3 28.6 Zosyn and vancomycin Endocrinology #DM type 2, hba1c 6.7 ISS, mild #Hypernatremia resolved dc d5w% 50 cc/h Renal #Hyperkalemia, resolved #BAO due to VMN resolved IV insulin and furosemide given GI tube feedings: resume feedings #Mild Hyperbillirubinemia #Constipation resolved lactulose due to constipation Hem/onc #Anemia, normochromic, normocytic: 10 #Thrombocytopenia: 98 monitor, transfusion of 2 apheresis of platelets Lines: PICC line right upper arm 05/01/25 intubation 04/23/25 extubated 05/01/25 reintubated 05/04/25 kenney catheter 04/23/25 Plan discussed with: Patient Date of Service: May 09, 2025 Billing Provider: MATI DAUGHERTY MD Common Visit Codes: [id number] CARE 30-74 MIN MATI DAUGHERTY MD May 09, 2025 09:36
[2025-05-09] MEDS: DEXMEDETOMIDINE HCL IN D5W 100 ML IV SCH (11:00)
--- NOTE | 2025-05-09 12:24 | DVHPN2 ---
Progress Note - Dictate Date Seen: May 09, 2025 Has the PT tested + for MRSA If YES, has PT been informed?: No Medical Necessity Reason Pt with a Central, PICC or Fol: Yes The following are medically ne: PICC Line, Kenney Catheter Reason for kenney catheter: Strict I&O vital signs Vital Sign Date Time Temp Pulse Resp B/P (MAP) Pulse Ox O2 Delivery O2 Flow Rate FiO2 05/09/25 12:05 57 18 128/54 (78) 100 30 05/09/25 11:15 99.3 210.7 05/09/25 10:30 Mechanical Ventilator+ Total Intake and Output 05/08/25 05/08/25 05/09/25 15:00 23:00 07:00 Intake Total 776.720 ml 1568.783 ml 1588.972 ml Output Total 550 ml 1075 ml Balance 776.720 ml 1018.783 ml 513.972 ml medications Current Medications Medications Dose Ordered Sig/Jose Alfredo Route Start Time Stop Time Status Last Admin Dose Admin Acetaminophen 650 mg Q6HP PRN PO 04/23/25 05:00 05/02/25 21:33 650 MG Propofol 100 ml @ 2.268 mls/ hr Q24H IV 04/23/25 20:45 05/01/25 04:51 2.268 MLS/HR Fentanyl Citrate 250 ml @ 2.5 mls/hr Q24H IV 04/23/25 20:45 05/09/25 06:41 25 MLS/HR Midazolam HCl 50 ml @ 1 mls/hr Q24H IV 04/23/25 23:15 05/09/25 09:10 7 MLS/HR Piperacillin Sod/ Tazobactam Sod 100 ml @ 25 mls/hr Q8HR IV 04/24/25 06:00 05/09/25 05:41 25 MLS/HR Pantoprazole Sodium 40 mg DAILY IV 04/28/25 10:00 05/09/25 08:49 40 MG Lactulose 30 ml BID PO 04/28/25 10:00 05/09/25 08:49 30 ML Empaglifozin 10 mg DAILY PO 05/01/25 10:00 05/09/25 08:49 10 MG Sodium Chloride 10 ml QSHIFT@10,22 IV 05/01/25 10:00 05/09/25 08:49 10 ML Enteral Nutritional Formula 1,000 ml 60ML/HR GT 05/05/25 16:45 05/06/25 22:26 1,000 ML Purified Water 200 ml Q6HR GT 05/06/25 12:00 05/09/25 11:45 200 ML Norepinephrine Bitartrate 250 ml @ 3.75 mls/hr Q24H IV 05/06/25 14:45 05/08/25 08:05 1.875 MLS/HR Vancomycin HCl 0 ml @ 0 mls/hr UD IV 05/06/25 18:15 Atropine Sulfate 1 mg UD PRN IV 05/07/25 02:00 Vancomycin HCl 150 ml @ 100 mls/hr Q12H IV 05/07/25 22:00 05/09/25 08:49 100 MLS/HR Dopamine HCl/ Dextrose 250 ml @ 4.59 mls/hr Q24H IV 05/07/25 16:15 05/08/25 16:04 4.59 MLS/HR Dextrose 50 ml UD PRN IV 05/07/25 18:00 Insulin Human Regular ACHS SC 05/08/25 17:00 05/09/25 06:13 2 UNITS Diagnostic Test (Pha) 1 strip ACHS 05/08/25 17:00 05/09/25 11:28 1 STRIP laboratory and microbiology Laboratory Tests 05/09/25 03:29 Test 05/09/25 03:29 Range/Units Serum Glucose 140 H 74-106 mg/dL 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 Acute hypoxemic respiratory failure Large neck hematoma Pleural effusions Septic shock Patient seen and examined in ICU Events On mechanical ventilation S/p intubation PEEP 8, FiO2 30% Patient delirious, not following commands Labs and imaging reviewed CT of the neck shows persistent hematoma Chest x-ray shows moderate right pleural effusions ABG reviewed- compensated Management Vent support Titrate to maintain sats 90% or above Sedation holiday to evaluate neurological status If patient follows commands, proceed to weaning trial Pressure support 05/02, extubate when ready Okay to use Precedex drip Continue antibiotics F/u cultures Bronchodilators Monitor renal function Monitor electrolytes Supplement as needed Diurese Lasix 20mg IV daily Pressors as needed for hemodynamic support To maintain a mean arterial pressure of 65 mmHg Avoid anticoagulants Mechanical DVT prophylaxis Critical care time 35 minutes Dietary Evaluation Review Comments: Nutrition Recommendation: 1. TF Vital AF 1.2 Luis Enrique @ 60 ml/hr. start @ 20ml/hr, increase 10ml/hr Q4H until goal is reached. TF at goal volume provides 100% energy & protein needs - 1728 kcal, 108 gm protein, 1168 ml free water 2. Water flush 140ml Q6H if allowed 3. TPN if NPO> 7 days Expected Outcomes/Goals: To meet >75% estimated needs Fu 2-3 days Plan discussed with: Other (Rn) VIRGINIA CREWS MD May 09, 2025 12:23
[2025-05-10] VITALS (106 sets, daily range): BP systolic 86–136; BP diastolic 35–105; PULSE 65–80; RESP 8–22; TEMP 96.6–100.4; O2SAT 95–100
[2025-05-10 04:06] LABS: Hematocrit 30.2 % (41.0-53.0); Hemoglobin 9.8 g/dL (13.5-17.5); Mean Corpuscular Hemoglobin 29.6 pg (28.0-32.0); Mean Corpuscular Volume 91.2 fL (80.0-100.0); Nucleated Red Blood Cells % 0.1 %
[2025-05-10 04:20] LABS: Alanine Aminotransferase 22 U/L (7-40); Alkaline Phosphatase 58 U/L (46-116); Anion Gap 6 (5-15); BUN/Creatinine Ratio 36.2 (10.0-20.0); Bilirubin, Total 0.9 mg/dL (0.2-1.0); Carbon Dioxide 30 mmol/L (20-31); Potassium 4.2 mmol/L (3.5-5.1)
[2025-05-10 04:25] LABS: Albumin 2.8 g/dL (3.2-4.8); Blood Urea Nitrogen 25 mg/dL (9-23); Calcium 8.5 mg/dL (8.7-10.4); Chloride 110 mmol/L (98-107); Glucose 108 mg/dL (74-106); Sodium 146 mmol/L (136-145); Total Protein 5.1 g/dL (5.7-8.2)
[2025-05-10 07:42] LABS: Base Excess 0.1 mmol/L (-2.0-3.0)
--- NOTE | 2025-05-10 09:06 | DVHPN2 ---
Subjective Review of Systems Mr. Farley is a 79-year-old male who presents with a chief complaint of bilateral leg swelling. He reports a chronic history of leg swelling, previously managed with a medication obtained from [place], the name of which he cannot recall. He admits to not taking this medication for some time. The patient is a poor historian but endorses a past medical history of diabetes mellitus (DM), hypertension (HTN), and an unspecified "heart issue." He denies any recent chest pain, shortness of breath, or dizziness. On triage, his blood pressure was markedly elevated at 180/116 mmHg with a pulse of 140 bpm. Given his history and current presentation, differential diagnoses include fluid retention possibly due to cardiac or renal insufficiency, medication noncompliance, electrolyte imbalance, and other systemic causes. Past Medical History diabetes mellitus (DM), hypertension (HTN), and an unspecified "heart issue." Past Surgical History none Family History: None (Noncontributory) Smoke: No ALCOHOL: none Drugs: None Lives: with Family Domestic Violence: Neg 04/23/25: patient was found with high oxygen requirements, respiratory acidosis, BIPAP was placed, POCUS at bedside possible reduced ejection fraction and hypokinesis, patient is having acute respiratory failure due to acute exacerbation of heart failure and COPD, antibiotics and solumedrol were started, mild hypokalemia was resolved with IV insulin 10 ui and furosemide, patient still has HR above 130, carvedilol is added, patient is MARIELENA status 04/24/25: during the night of 04/23/25, patient started to be more hypercapnic and drowsy, not responding to BIPAP, so talking with bhavani family the decision was to intubate, also patient started to be hypotensive with the need of vasopressors, central line was attempted to be placed on right yugular vein but the catheter is found to be entering through the brachiocephalic (innominate) artery with its tip residing in the Aortic arch, AngioCT scan STAT confirmed the findings, general surgery was consulted who advice endovascular stent placement to span the defect in the artery by means of transfemoral arteriography done by Interventional Radiologist, the removal of the catheter was done successfully by Dr José ARZOLA (formal radiological report pending) , right now we are going to f/u hb and bed rest, family was informed about the interventions, consent forms were signed, at the moment on fentanyl and versed drip, levophed 7 mcg, ABG after procedure ph 7.47 pco2 38 po2 69.6 hco3 27.8 ,continue monitor 04/27/25: During the weekend, no bleeding from the puncture site, patient is being on afib, levophed was wean off and phenylephrine was started, also digoxin was on, low dose heparin was started due to high chadvasc. Also sedation vacation was done, but today at 4 am patient started to be agitated. His platelets are 129. Cardiology today, they changed digoxin to amiodarone. Anticoagulation was DC, he will benefit for cath due to EF 25% , possible on sunday, Lipid panel normal. 04/28/25: amiodarone dc by cardiology, off pressors, thoracentesis done, 1.3 LT drained, klebsiella positive in sputum, [facility] tomorrow 04/29/25: off pressors, HR in the 70s, patient was slightly agitated, sedation was increased, vanco dc, [facility] with normal coronaries 04/30/25: off pressors, patient will benefit from cpap trial, precedex am, dc TLC, PICC line consult, cardiology started jardiance and metoprolol 05/01/25: PICC line placed at 7 am, on precedex infusion cpap started at 12: 30 pm ABG: PaFiO2 271, patient had an episode of agitation HR went up to 170s, afib with RVR, amiodarone drip was ordered, but after the agitation episode resolves, HR went down, right now patient is calm, extubated at 2 pm. 05/02/25: extubated, repleted K, agitated, adding Seroquel. pending bedside swallow, off pressors 05/03/25: bruise on neck expanding, hb drop. sending for CT, start oral feeding, holding lasix for now, increasing GDMT. avoid CCB. CT showed active bleeding, decision to transfer [facility] for CT/vasc. ss consult placed. trend HH. patient was intubated for airway protection 05/04/25: patient was seen by IR, neck angiogram done with active bleeding stopped. pressor low dose likely sedation related. c/w to trend h/h. plt >100, given vit k. 05/05/25: extend discussion with the family today and Dr Kumar IR: positive pressure of the ventilator is helping to control the bleeding, we are going to wait until hematoma is decreasing to do another intervention, possibility of tracheostomy and stent placement were discussed with the family, risk of stroke were discussed, if hb and platelets are stable and if is not active bleeding expectant management will be done, there is not expansible hematoma, pseudomonas is growing in new sputum culture, still sensible to zosyn, we are going to restart the feedings, amiodarone once daily, no anticoagulation, levophed 2 mcg 05/06/25: his HR has been into the 40s, possible sick sinus syndrome, amiodarone DC, dopamine fixed dose started, levophed titrate down, T max 100, vancomycin will be started, free water started due to hypernatremia, the ecchymosis is migrating to the lower body, his hb is stable, extensive discussion with the family about the plan, 05/07/25: HB 9,.9 plt 98, hematoma at the neck looks bigger, STAT angioct scan was done: showing Large heterogeneous hematoma is seen in the right lower neck which measures 9.9 x 5.9 cm and No evidence of acute arterial extravasation or injury. platelets were given. Case discussed with Dr Fernandez, who stated no need of stent at the moment Na 151 d5w 50cc/h, vancomycin was added 05/08/25: hb 10 plat 109 --> 98, new apheresis of platelets given, Na 145, dc d5w, HR is trending slowly higher, we are going to continue dopamine fixed dose, but the risk of going back to afib exist, levophed 1 mcg, IR, Dr Fernandez, came at bedside, explained to the family that in case of active bleeding stent will be placed and the risk of adverse events is about 15-20% (stroke, stent thrombosis), also the possibility of tracheostomy is on the table if hematoma is not subsiding. Bag of 5 pounds is on the hematoma to help with resorption 05/09-initially here for pneumonia. Central line was tried for Levophed which was inadvertently inserted into brachiocephalic CBC, which led to bleed evaluated by IR concluded as controlled bleed likely hematoma. Area is marked there is some mild increase in ecchymosis on right neck but not significant from marked area. Fecal not repeat imaging today. Also having thrombocytopenia stable today at 1:10 a.m.. We will transfuse if platelets below 100. We will continue primary team's plan no sedation vacations/CPAP trial over the weekend. Patient bradycardic currently on Levophed 0.5 dopamine drip to. Other drips include Versed, fentanyl, antibiotics Zosyn. Patient getting enteral feeds OG tube with free water flushes. Ventilated a.c. 16/450/30%/8.0. Breath sounds bilateral, bradycardic on exam, no edema, pulses present, hematoma right shoulder acknowledged. We will continue to monitor. 05/10/25---right shoulder hematoma/ecchymosis again a little increased in size but hemoglobin stable, platelets stable hemodynamics stable. We will defer imaging to tomorrow to primary. Vitals stable heart rate over 60. Labs more than 70,. Pulmonology wanted to try to wean, we will communicate to nurse to inform pulmonology primary team advised against weaning trials over the weekend. Drips include Versed 5, fentanyl 175, dopa to.. Vent a.c. 16/4 50/30%/8.0. Bowel movements 3 overnight, urine output adequate. We will continue primary team's management. Reviewed: H&P Changes from previous H/P or p: No Changes General: Per HPI Eyes: No Pain, No Vision change, No Conjunctivae inflammation, No Eyelid inflammation, No Other, No Redness ENT: No Ear pain, No Ear discharge, No Nose pain, No Nose discharge, No Nose congestion, No Mouth pain, No Mouth swelling, No Throat pain, No Throat swelling, No Other Cardiovascular: No Chest Pain; Palpitations, Paroxysmal Noc. Dyspnea, Edema; No Lt Headedness, No Other Respiratory: Cough, Dry, Shortness of breath, SOB with excertion Gastrointestinal: No Nausea, No Vomiting, No Abdominal Pain, No Diarrhea, No Constipation, No Melena, No Hematochezia, No Other Genitourinary: No Dysuria, No Frequency, No Incontinence, No Hematuria, No Retention, No Other Musculoskeletal: other (Bilateral leg swelling); No neck pain, No shoulder pain, No arm pain, No back pain, No hand pain, No leg pain, No foot pain Skin: No Rash, No Lesions, No Jaundice, No Bruising, No Other Objective Vitals Vital Signs Date Time Temp Pulse Resp B/P (MAP) Pulse Ox O2 Delivery O2 Flow Rate FiO2 05/10/25 08:45 99.3 71 12 123/49 (73) 100 210.7 05/10/25 07:56 30 05/10/25 07:30 Mechanical Ventilator+ Intake/Output Intake and Output 05/10/25 07:00 Intake Total 3306.164 ml Output Total 2000 ml Balance 1306.164 ml Intake Oral 400 ml IV Total 1478.164 ml Tube Feeding 928 ml Other 500 ml Output Urine Total 2000 ml # Bowel Movements 4 Exam General Appearance: sedated ventilated HEENT: Atraumatic, PERRLA, EOMI, Mucous membr. moist/pink, the hematoma is stable but appears to be undergoing resorption, is migrated along the subcutaneous to the back and flanks, weight of 5 pound is helping on the resorption Respiratory: Bilateral basal crackles Cardiovascular: rhythmic HR 50 Abdominal: Normal bowel sounds, Soft, No tenderness, No hepatospenomegaly, No masses Extremities: Edema, PICC line right arm Skin: No rashes, No breakdown, No significant lesion Medications Current Medications Medications Dose Ordered Sig/Jose Alfredo Route Start Time Stop Time Status Last Admin Dose Admin Acetaminophen 650 mg Q6HP PRN PO 04/23/25 05:00 05/02/25 21:33 650 MG Propofol 100 ml @ 2.268 mls/ hr Q24H IV 04/23/25 20:45 05/01/25 04:51 2.268 MLS/HR Fentanyl Citrate 250 ml @ 2.5 mls/hr Q24H IV 04/23/25 20:45 05/09/25 23:33 27.5 MLS/HR Midazolam HCl 50 ml @ 1 mls/hr Q24H IV 04/23/25 23:15 05/10/25 06:16 7 MLS/HR Piperacillin Sod/ Tazobactam Sod 100 ml @ 25 mls/hr Q8HR IV 04/24/25 06:00 05/10/25 05:10 25 MLS/HR Pantoprazole Sodium 40 mg DAILY IV 04/28/25 10:00 05/09/25 08:49 40 MG Lactulose 30 ml BID PO 04/28/25 10:00 05/09/25 08:49 30 ML Empaglifozin 10 mg DAILY PO 05/01/25 10:00 05/09/25 08:49 10 MG Sodium Chloride 10 ml QSHIFT@10,22 IV 05/01/25 10:00 05/09/25 22:03 10 ML Enteral Nutritional Formula 1,000 ml 60ML/HR GT 05/05/25 16:45 05/09/25 18:21 1,000 ML Purified Water 200 ml Q6HR GT 05/06/25 12:00 05/10/25 05:10 200 ML Norepinephrine Bitartrate 250 ml @ 3.75 mls/hr Q24H IV 05/06/25 14:45 05/08/25 08:05 1.875 MLS/HR Vancomycin HCl 0 ml @ 0 mls/hr UD IV 05/06/25 18:15 Atropine Sulfate 1 mg UD PRN IV 05/07/25 02:00 Vancomycin HCl 150 ml @ 100 mls/hr Q12H IV 05/07/25 22:00 05/09/25 22:37 100 MLS/HR Dopamine HCl/ Dextrose 250 ml @ 4.59 mls/hr Q24H IV 05/07/25 16:15 05/10/25 06:24 4.59 MLS/HR Dextrose 50 ml UD PRN IV 05/07/25 18:00 Insulin Human Regular ACHS SC 05/08/25 17:00 05/10/25 06:16 2 UNITS Diagnostic Test (Pha) 1 strip ACHS 05/08/25 17:00 05/10/25 06:12 1 STRIP Furosemide 20 mg DAILY IV 05/10/25 10:00 Laboratory Results Laboratory Tests 05/10/25 03:37 Chemistry Test 05/10/25 03:37 Albumin 2.8 g/dL (3.2-4.8) L Calcium Level 8.5 mg/dL (8.7-10.4) L Total Protein 5.1 g/dL (5.7-8.2) L LFT Test 05/10/25 03:37 Alanine Aminotransferase (ALT) 22 U/L (7-40) Alkaline Phosphatase 58 U/L (46-116) Aspartate Amino Transferase (AST) 34 U/L (13-40) Total Bilirubin 0.9 mg/dL (0.2-1.0) Urinalysis Test 04/23/25 19:00 Urine Color Light-yellow (Yellow) Urine Clarity Turbid (Clear) H Urine pH 5.0 (5.0-9.0) Urine Specific [place] 1.006 (1.001-1.035) Urine Protein Negative (Negative) Urine Ketones Negative (Negative) Urine Blood 2+ /uL (Negative) H Urine Nitrite Negative (Negative) Urine Bilirubin Negative (Negative) Urine Urobilinogen Normal mg/dL (Negative) Urine Leukocyte Esterase Negative /uL (Negative) Urine RBC 10 /hpf (0 - 3) Urine Microscopic WBC 1 /HPF (0-3) Urine Squamous Epithelial Cells Few /hpf (<5) Urine Bacteria Few /hpf (None Seen) H Urine Mucus Few (None Seen) Urine Glucose Normal mg/dL (Normal) Blood Gas Results Test 05/10/25 07:30 Arterial Blood pH 7.334 (7.350-7.450) FiO2 % 30.0 Microbiology Microbiology Date/Time Source Procedure Growth Status 05/03/25 20:20 Trachea Gram Stain - Final Complete 05/03/25 20:20 Respiratory Culture - Final Pseudomonas aeruginosa Complete 04/28/25 12:55 Pleural Fluid Gram Stain - Final Complete 04/28/25 12:55 Pleural Fluid Aerobic Culture - Final Complete 04/24/25 01:45 Blood Blood Culture - Final NO GROWTH AFTER 5 DAYS OF INCUBATION. Complete 04/23/25 21:00 Sputum Expectorated Sputum Gram Stain - Final Complete 04/23/25 21:00 Respiratory Culture - Final Klebsiella pneumoniae Complete 04/23/25 19:00 Voided Urine Urine Culture - Final Complete Labs and/or images reviewed: Labs reviewed by me, Image(s) reviewed by me Assessment/Plan Assessment/Plan Neurologic #Acute metabolic encephalopathy due to hypercapnic respiratory failure sedation: fentanyl and midazolam Cardiovascular #Acute exacerbation of heart failure with possible reduced ejection fraction #Septic shock ECHO EF 25%: severe dilated cavities, LHC no significant CAD Cardiology on board GDMT: jardiance 10 mg levoped 0.5 mcg #New onset atrial flutter 2-1 AV conduction with RVR resolved #Possible sick sinus syndrome #Hypertensive emergency resolved #Hypertensive heart disease with systolic failure #sp CVC removal from right brachiocephalic/subclavian artery #neck hematoma hb stable, patient is having a bruise, migrating to the back, no expansive hematoma at the moment 05/05/25: extend discussion with the family today and Dr Kumar IR: positive pressure of the ventilator is helping to control the bleeding, we are going to wait until hematoma is decreasing to do another intervention, possibility of tracheostomy and stent placement were discussed with the family, risk of stroke were discussed, if hb and platelets are stable and if is not active bleeding, expectant management will be carried, there is not expansible hematoma, pseudomonas is growing in new sputum culture, still sensible to zosyn, we are going to restart the feedings, amiodarone once daily, no anticoagulation, levophed 2 mcg 05/06/25: his HR has been into the 40s, possible sick sinus syndrome, amiodarone DC, dopamine fixed dose started, levophed titrate down, T max 100, vancomycin will be started, free water started due to hypernatremia, the ecchymosis is migrating to the lower body, his hb is stable, extensive discussion with the family about the plan 05/07/25: HB 9,.9 plt 98, hematoma at the neck looks bigger, STAT angioct scan was done: showing Large heterogeneous hematoma is seen in the right lower neck which measures 9.9 x 5.9 cm and No evidence of acute arterial extravasation or injury. platelets were given. Case discussed with Dr Fernandez, who stated no need of stent at the moment Na 151 d5w 50cc/h, vancomycin was added 05/08/25: hb 10 plat 109 --> 98, new apheresis of platelets ordered, Na 145, dc d5w, HR is trending slowly higher, we are going to continue dopamine fixed dose, but the risk of going back to afib exist, levophed 1 mcg, IR, Dr Fernandez, came at bedside, explained to the family that in case of active bleeding stent will be placed and the risk of adverse events is about 15-20% (stroke, stent thrombosis), also the possibility of tracheostomy is on the table if hematoma is not subsiding. Bag of 5 pounds is on the hematoma to help with resorption Respiratory #Septic shock #Acute respiratory failure due to COPD exacerbation and heart failure #s/p mechanical ventilation #Respiratory alkalosis #Bilateral pleural effusions L>R at admission: likely parapneumonic Thoracentesis done 1.3 LT drained: exudate #pneumonia gram+/ gram - due to klebsiella pneumoniae and pseudomona aeruginosa #Severe respiratory acidosis resolved TV 450 RR 16 FIO2 30 PEEP 8 ph 7.407 pco2 46.5 po2 89.6 hco3 28.6 Zosyn and vancomycin Endocrinology #DM type 2, hba1c 6.7 ISS, mild #Hypernatremia resolved dc d5w% 50 cc/h Renal #Hyperkalemia, resolved #BAO due to VMN resolved IV insulin and furosemide given GI tube feedings: resume feedings #Mild Hyperbillirubinemia #Constipation resolved lactulose due to constipation Hem/onc #Anemia, normochromic, normocytic: 10 #Thrombocytopenia: 98 monitor, transfusion of 2 apheresis of platelets Lines: PICC line right upper arm 05/01/25 intubation 04/23/25 extubated 05/01/25 reintubated 05/04/25 kenney catheter 04/23/25 Plan discussed with: Patient Date of Service: May 10, 2025 Billing Provider: MATI DAUGHERTY MD Common Visit Codes: [id number] CARE 30-74 MIN MATI DAUGHERTY MD May 10, 2025 09:06
--- NOTE | 2025-05-10 09:17 | DVH ---
XY CHEST PORTABLE, HISTORY: CHF EXACERBATION COMPARISON: XY CHEST XRAY 1 VIEW on DOS: 05/09/25, XY CHEST XRAY 1 VIEW on DOS: 05/08/25, XY CHEST XRAY 1 VIEW on DOS: 05/07/25 XY CHEST XRAY 1 VIEW on DOS: 05/09/25, XY CHEST XRAY 1 VIEW on DOS: 05/08/25, XY CHEST XRAY 1 VIEW on D OS: 05/07/25 TECHNICAL DATA: 1 view of the chest was obtained. FINDINGS: Lines and tubes: Similar position of the lines and tubes. Cardiomediastinal silhouette: Prominent Pulmonary vasculature: Prominent Lung expansion: normal Lung airspace: Patchy bibasalar opacities. Lung interstitium: normal Pleura: Small left pleural effusion. Pneumothorax: no Bones: Unremarkable Other: no IMPRESSION: Stable lines and tubes. Similar lung aeration. Small left pleural fusion.
[2025-05-10] MEDS: FUROSEMIDE 20 MG/2 ML VIAL IV SCH (09:53)
--- NOTE | 2025-05-10 13:15 | DVHPN2 ---
Progress Note - Dictate Date Seen: May 10, 2025 Has the PT tested + for MRSA If YES, has PT been informed?: No Medical Necessity Reason Pt with a Central, PICC or Fol: Yes The following are medically ne: PICC Line, Kenney Catheter Reason for kneney catheter: Strict I&O vital signs Vital Sign Date Time Temp Pulse Resp B/P (MAP) Pulse Ox O2 Delivery O2 Flow Rate FiO2 05/10/25 12:00 30 05/10/25 12:00 16 100 Mechanical Ventilator+ 05/10/25 12:00 99.1 77 103/35 (57) 210.4 Total Intake and Output 05/09/25 05/09/25 05/10/25 15:00 23:00 07:00 Intake Total 537.724 ml 1388.72 ml 1379.72 ml Output Total 1050 ml 950 ml Balance 537.724 ml 338.72 ml 429.72 ml medications Current Medications Medications Dose Ordered Sig/Jose Alfredo Route Start Time Stop Time Status Last Admin Dose Admin Acetaminophen 650 mg Q6HP PRN PO 04/23/25 05:00 05/02/25 21:33 650 MG Propofol 100 ml @ 2.268 mls/ hr Q24H IV 04/23/25 20:45 05/01/25 04:51 2.268 MLS/HR Fentanyl Citrate 250 ml @ 2.5 mls/hr Q24H IV 04/23/25 20:45 05/10/25 10:10 17.5 MLS/HR Midazolam HCl 50 ml @ 1 mls/hr Q24H IV 04/23/25 23:15 05/10/25 06:16 7 MLS/HR Piperacillin Sod/ Tazobactam Sod 100 ml @ 25 mls/hr Q8HR IV 04/24/25 06:00 05/10/25 05:10 25 MLS/HR Pantoprazole Sodium 40 mg DAILY IV 04/28/25 10:00 05/10/25 09:53 40 MG Lactulose 30 ml BID PO 04/28/25 10:00 05/09/25 08:49 30 ML Empaglifozin 10 mg DAILY PO 05/01/25 10:00 05/10/25 09:53 10 MG Sodium Chloride 10 ml QSHIFT@10,22 IV 05/01/25 10:00 05/10/25 09:53 10 ML Enteral Nutritional Formula 1,000 ml 60ML/HR GT 05/05/25 16:45 05/09/25 18:21 1,000 ML Purified Water 200 ml Q6HR GT 05/06/25 12:00 05/10/25 11:18 200 ML Norepinephrine Bitartrate 250 ml @ 3.75 mls/hr Q24H IV 05/06/25 14:45 05/08/25 08:05 1.875 MLS/HR Vancomycin HCl 0 ml @ 0 mls/hr UD IV 05/06/25 18:15 Atropine Sulfate 1 mg UD PRN IV 05/07/25 02:00 Vancomycin HCl 150 ml @ 100 mls/hr Q12H IV 05/07/25 22:00 05/10/25 09:53 100 MLS/HR Dopamine HCl/ Dextrose 250 ml @ 4.59 mls/hr Q24H IV 05/07/25 16:15 05/10/25 06:24 4.59 MLS/HR Dextrose 50 ml UD PRN IV 05/07/25 18:00 Insulin Human Regular ACHS SC 05/08/25 17:00 05/10/25 06:16 2 UNITS Diagnostic Test (Pha) 1 strip ACHS 05/08/25 17:00 05/10/25 11:18 1 STRIP Furosemide 20 mg DAILY IV 05/10/25 10:00 05/10/25 09:53 20 MG laboratory and microbiology Laboratory Tests 05/10/25 03:37 Test 05/10/25 03:37 Range/Units Serum Glucose 108 H 74-106 mg/dL Assessment/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 Acute hypoxemic respiratory failure Large neck hematoma Pleural effusions Septic shock Patient seen and examined in ICU Events On mechanical ventilation S/p intubation PEEP 8, FiO2 30% Requires sedation On Dopamine drip Fever of 101.2 reported yesterday Cultures obtained Labs and imaging reviewed CT of the neck shows persistent hematoma Chest x-ray shows moderate right pleural effusions ABG reviewed Management Vent support Titrate to maintain sats 90% or above Continue sedation Continue antibiotics F/u cultures Bronchodilators Monitor renal function Monitor electrolytes Supplement as needed Continue diuresis Pressors as needed for hemodynamic support To maintain a mean arterial pressure of 65 mmHg Avoid anticoagulants Mechanical DVT prophylaxis Critical care time 35 minutes Dietary Evaluation Review Comments: Nutrition Recommendation: 1. TF Vital AF 1.2 Luis Enrique @ 60 ml/hr. start @ 20ml/hr, increase 10ml/hr Q4H until goal is reached. TF at goal volume provides 100% energy & protein needs - 1728 kcal, 108 gm protein, 1168 ml free water 2. Water flush 140ml Q6H if allowed 3. TPN if NPO> 7 days Expected Outcomes/Goals: To meet >75% estimated needs Fu 2-3 days Plan discussed with: Other (Rn) VIRGINIA CREWS MD May 10, 2025 13:15
[2025-05-11] VITALS (106 sets, daily range): BP systolic 87–146; BP diastolic 44–64; PULSE 67–84; RESP 6–28; TEMP 98.4–100; O2SAT 97–100
[2025-05-11 04:23] LABS: Hematocrit 28.5 % (41.0-53.0); Hemoglobin 9.3 g/dL (13.5-17.5); Mean Corpuscular Hemoglobin 29.9 pg (28.0-32.0); Mean Corpuscular Volume 91.3 fL (80.0-100.0); Nucleated Red Blood Cells % 0.0 %
[2025-05-11 04:33] LABS: Alanine Aminotransferase 19 U/L (7-40); Alkaline Phosphatase 57 U/L (46-116); Anion Gap 5 (5-15); BUN/Creatinine Ratio 38.9 (10.0-20.0); Bilirubin, Total 0.7 mg/dL (0.2-1.0); Blood Urea Nitrogen 21 mg/dL (9-23); Carbon Dioxide 30 mmol/L (20-31); Potassium 3.9 mmol/L (3.5-5.1); Sodium 144 mmol/L (136-145)
--- NOTE | 2025-05-11 04:33 | DVH ---
CHEST RADIOGRAPH Indication: CHF EXACERBATION/ARF Technique: Single frontal view of the chest was obtained Comparison: XY CHEST PORTABLE on DOS: 05/10/25 FINDINGS: Lines and Tubes: The endotracheal tube terminates 2.8 cm above the kate. Right PICC terminates in t he superior vena cava. The enteric tube courses below the left hemidiaphragm and the tip extends outs dari the field of view. Lungs: Hazy bilateral airspace disease. Pleura: No effusion. No pneumothorax. Cardiomediastinal contours: Unremarkable Bones: No acute osseous abnormality. IMPRESSION: 1. Support lines and tubes in appropriate position. 2. Hazy bilateral airspace disease which may reflect pulmonary edema or pneumonia
[2025-05-11 04:40] LABS: Albumin 2.7 g/dL (3.2-4.8); Calcium 7.8 mg/dL (8.7-10.4); Chloride 109 mmol/L (98-107); Glucose 136 mg/dL (74-106); Total Protein 4.8 g/dL (5.7-8.2)
[2025-05-11 07:18] LABS: Base Excess 2.6 mmol/L (-2.0-3.0)
--- NOTE | 2025-05-11 17:17 | DVHPNRES ---
Progress Note Date Seen: May 11, 2025 Resident Creating Document: MIS REYEZ RESIDENT Has the PT tested + for MRSA If YES, has PT been informed?: No Medical Necessity Reason Pt with a Central, PICC or Fol: Yes The following are medically ne: PICC Line, Kenney Catheter Reason for kenney catheter: Strict I&O Subjective Review of Systems Mr. Farley is a 79-year-old male who presents with a chief complaint of bilateral leg swelling. He reports a chronic history of leg swelling, previously managed with a medication obtained from [place], the name of which he cannot recall. He admits to not taking this medication for some time. The patient is a poor historian but endorses a past medical history of diabetes mellitus (DM), hypertension (HTN), and an unspecified "heart issue." He denies any recent chest pain, shortness of breath, or dizziness. On triage, his blood pressure was markedly elevated at 180/116 mmHg with a pulse of 140 bpm. Given his history and current presentation, differential diagnoses include fluid retention possibly due to cardiac or renal insufficiency, medication noncompliance, electrolyte imbalance, and other systemic causes. Past Medical History diabetes mellitus (DM), hypertension (HTN), and an unspecified "heart issue." Past Surgical History none Family History: None (Noncontributory) Smoke: No ALCOHOL: none Drugs: None Lives: with Family Domestic Violence: Neg 04/23/25: patient was found with high oxygen requirements, respiratory acidosis, BIPAP was placed, POCUS at bedside possible reduced ejection fraction and hypokinesis, patient is having acute respiratory failure due to acute exacerbation of heart failure and COPD, antibiotics and solumedrol were started, mild hypokalemia was resolved with IV insulin 10 ui and furosemide, patient still has HR above 130, carvedilol is added, patient is MARIELENA status 04/24/25: during the night of 04/23/25, patient started to be more hypercapnic and drowsy, not responding to BIPAP, so talking with bhavani family the decision was to intubate, also patient started to be hypotensive with the need of vasopressors, central line was attempted to be placed on right yugular vein but the catheter is found to be entering through the brachiocephalic (innominate) artery with its tip residing in the Aortic arch, AngioCT scan STAT confirmed the findings, general surgery was consulted who advice endovascular stent placement to span the defect in the artery by means of transfemoral arteriography done by Interventional Radiologist, the removal of the catheter was done successfully by Dr José ARZOLA (formal radiological report pending) , right now we are going to f/u hb and bed rest, family was informed about the interventions, consent forms were signed, at the moment on fentanyl and versed drip, levophed 7 mcg, ABG after procedure ph 7.47 pco2 38 po2 69.6 hco3 27.8 ,continue monitor 04/27/25: During the weekend, no bleeding from the puncture site, patient is being on afib, levophed was wean off and phenylephrine was started, also digoxin was on, low dose heparin was started due to high chadvasc. Also sedation vacation was done, but today at 4 am patient started to be agitated. His platelets are 129. Cardiology today, they changed digoxin to amiodarone. Anticoagulation was DC, he will benefit for cath due to EF 25% , possible on sunday, Lipid panel normal. 04/28/25: amiodarone dc by cardiology, off pressors, thoracentesis done, 1.3 LT drained, klebsiella positive in sputum, [facility] tomorrow 04/29/25: off pressors, HR in the 70s, patient was slightly agitated, sedation was increased, vanco dc, [facility] with normal coronaries 04/30/25: off pressors, patient will benefit from cpap trial, precedex am, dc TLC, PICC line consult, cardiology started jardiance and metoprolol 05/01/25: PICC line placed at 7 am, on precedex infusion cpap started at 12: 30 pm ABG: PaFiO2 271, patient had an episode of agitation HR went up to 170s, afib with RVR, amiodarone drip was ordered, but after the agitation episode resolves, HR went down, right now patient is calm, extubated at 2 pm. 05/02/25: extubated, repleted K, agitated, adding Seroquel. pending bedside swallow, off pressors 05/03/25: bruise on neck expanding, hb drop. sending for CT, start oral feeding, holding lasix for now, increasing GDMT. avoid CCB. CT showed active bleeding, decision to transfer [facility] for CT/vasc. ss consult placed. trend HH. patient was intubated for airway protection 05/04/25: patient was seen by IR, neck angiogram done with active bleeding stopped. pressor low dose likely sedation related. c/w to trend h/h. plt >100, given vit k. 05/05/25: extend discussion with the family today and Dr Kumar IR: positive pressure of the ventilator is helping to control the bleeding, we are going to wait until hematoma is decreasing to do another intervention, possibility of tracheostomy and stent placement were discussed with the family, risk of stroke were discussed, if hb and platelets are stable and if is not active bleeding expectant management will be done, there is not expansible hematoma, pseudomonas is growing in new sputum culture, still sensible to zosyn, we are going to restart the feedings, amiodarone once daily, no anticoagulation, levophed 2 mcg 05/06/25: his HR has been into the 40s, possible sick sinus syndrome, amiodarone DC, dopamine fixed dose started, levophed titrate down, T max 100, vancomycin will be started, free water started due to hypernatremia, the ecchymosis is migrating to the lower body, his hb is stable, extensive discussion with the family about the plan, 05/07/25: HB 9,.9 plt 98, hematoma at the neck looks bigger, STAT angioct scan was done: showing Large heterogeneous hematoma is seen in the right lower neck which measures 9.9 x 5.9 cm and No evidence of acute arterial extravasation or injury. platelets were given. Case discussed with Dr Fernandez, who stated no need of stent at the moment Na 151 d5w 50cc/h, vancomycin was added 05/08/25: hb 10 plat 109 --> 98, new apheresis of platelets given, Na 145, dc d5w, HR is trending slowly higher, we are going to continue dopamine fixed dose, but the risk of going back to afib exist, levophed 1 mcg, IR, Dr Fernandez, came at bedside, explained to the family that in case of active bleeding stent will be placed and the risk of adverse events is about 15-20% (stroke, stent thrombosis), also the possibility of tracheostomy is on the table if hematoma is not subsiding. Bag of 5 pounds is on the hematoma to help with resorption 05/09-initially here for pneumonia. Central line was tried for Levophed which was inadvertently inserted into brachiocephalic CBC, which led to bleed evaluated by IR concluded as controlled bleed likely hematoma. Area is marked there is some mild increase in ecchymosis on right neck but not significant from marked area. Fecal not repeat imaging today. Also having thrombocytopenia stable today at 1:10 a.m.. We will transfuse if platelets below 100. We will continue primary team's plan no sedation vacations/CPAP trial over the weekend. Patient bradycardic currently on Levophed 0.5 dopamine drip to. Other drips include Versed, fentanyl, antibiotics Zosyn. Patient getting enteral feeds OG tube with free water flushes. Ventilated a.c. 16/450/30%/8.0. Breath sounds bilateral, bradycardic on exam, no edema, pulses present, hematoma right shoulder acknowledged. We will continue to monitor. 05/10/25---right shoulder hematoma/ecchymosis again a little increased in size but hemoglobin stable, platelets stable hemodynamics stable. We will defer imaging to tomorrow to primary. Vitals stable heart rate over 60. Labs more than 70,. Pulmonology wanted to try to wean, we will communicate to nurse to inform pulmonology primary team advised against weaning trials over the weekend. Drips include Versed 5, fentanyl 175, dopa to.. Vent a.c. 16/4 50/30%/8.0. Bowel movements 3 overnight, urine output adequate. We will continue primary team's management. 05/11/25: off dopamine, HR 70s, BPs elevated, hb is trending down, platelets normal, extensive discussion with the family held about the need of tracheostomy, surgery consult placed for tracheostomy, stop jardiance, free water, continue furosemide 20 mg daily Objective vital signs Vital Sign Date Time Temp Pulse Resp B/P (MAP) Pulse Ox O2 Delivery O2 Flow Rate FiO2 05/11/25 17:06 129/56 05/11/25 16:45 99.3 75 16 100 210.7 05/11/25 16:07 30 05/11/25 16:07 Mechanical Ventilator+ Total Intake and Output 05/10/25 05/10/25 05/11/25 14:59 22:59 06:59 Intake Total 481.72 ml 1172.72 ml 1492.72 ml Output Total 1700 ml 1450 ml Balance 481.72 ml -527.28 ml 42.72 ml medications Current Medications Medications Dose Ordered Sig/Jose Alfredo Route Start Time Stop Time Status Last Admin Dose Admin Acetaminophen 650 mg Q6HP PRN PO 04/23/25 05:00 05/02/25 21:33 650 MG Propofol 100 ml @ 2.268 mls/ hr Q24H IV 04/23/25 20:45 05/01/25 04:51 2.268 MLS/HR Fentanyl Citrate 250 ml @ 2.5 mls/hr Q24H IV 04/23/25 20:45 05/11/25 17:06 10 MLS/HR Midazolam HCl 50 ml @ 1 mls/hr Q24H IV 04/23/25 23:15 05/11/25 17:02 5 MLS/HR Piperacillin Sod/ Tazobactam Sod 100 ml @ 25 mls/hr Q8HR IV 04/24/25 06:00 05/11/25 14:39 25 MLS/HR Pantoprazole Sodium 40 mg DAILY IV 04/28/25 10:00 05/11/25 09:37 40 MG Lactulose 30 ml BID PO 04/28/25 10:00 05/11/25 09:37 30 ML Empaglifozin 10 mg DAILY PO 05/01/25 10:00 05/11/25 10:03 10 MG Sodium Chloride 10 ml QSHIFT@10,22 IV 05/01/25 10:00 05/11/25 09:37 10 ML Enteral Nutritional Formula 1,000 ml 60ML/HR GT 05/05/25 16:45 05/09/25 18:21 1,000 ML Purified Water 200 ml Q6HR GT 05/06/25 12:00 05/11/25 12:03 200 ML Norepinephrine Bitartrate 250 ml @ 3.75 mls/hr Q24H IV 05/06/25 14:45 05/08/25 08:05 1.875 MLS/HR Vancomycin HCl 0 ml @ 0 mls/hr UD IV 05/06/25 18:15 Atropine Sulfate 1 mg UD PRN IV 05/07/25 02:00 Vancomycin HCl 150 ml @ 100 mls/hr Q12H IV 05/07/25 22:00 05/11/25 09:37 100 MLS/HR Dopamine HCl/ Dextrose 250 ml @ 4.59 mls/hr Q24H IV 05/07/25 16:15 05/10/25 06:24 4.59 MLS/HR Dextrose 50 ml UD PRN IV 05/07/25 18:00 Insulin Human Regular ACHS SC 05/08/25 17:00 05/11/25 12:03 3 UNITS Diagnostic Test (Pha) 1 strip ACHS 05/08/25 17:00 05/11/25 17:02 1 STRIP Furosemide 20 mg DAILY IV 05/10/25 10:00 05/11/25 09:37 20 MG Examination General Appearance: TV 450 RR 16 FIO2 30 PEEP 5 HEENT: Atraumatic, PERRLA, EOMI, Mucous membr. moist/pink, the hematoma is stable but appears to be undergoing resorption, is migrated along the subcutaneous to the back and flanks, weight of 5 pound is helping on the resorption Respiratory: Bilateral basal crackles Cardiovascular: rhythmic HR 50 Abdominal: Normal bowel sounds, Soft, No tenderness, No hepatospenomegaly, No masses Extremities: Edema, PICC line right arm Skin: No rashes, No breakdown, No significant lesion laboratory and microbiology Laboratory Tests 05/11/25 03:00 Test 05/11/25 03:00 Range/Units Serum Glucose 136 H 74-106 mg/dL Microbiology Date/Time Source Procedure Growth Status 05/03/25 20:20 Trachea Gram Stain - Final Complete 05/03/25 20:20 Respiratory Culture - Final Pseudomonas aeruginosa Complete 04/28/25 12:55 Pleural Fluid Gram Stain - Final Complete 04/28/25 12:55 Pleural Fluid Aerobic Culture - Final Complete 04/24/25 01:45 Blood Blood Culture - Final NO GROWTH AFTER 5 DAYS OF INCUBATION. Complete 04/23/25 21:00 Sputum Expectorated Sputum Gram Stain - Final Complete 04/23/25 21:00 Respiratory Culture - Final Klebsiella pneumoniae Complete 04/23/25 19:00 Voided Urine Urine Culture - Final Complete Problem List/Assessment/Plan Problem List/Assessment/Plan Neurologic #Acute metabolic encephalopathy due to hypercapnic respiratory failure sedation: fentanyl and midazolam Cardiovascular #Acute exacerbation of heart failure with possible reduced ejection fraction #Septic shock ECHO EF 25%: severe dilated cavities, LHC no significant CAD Cardiology on board GDMT: jardiance 10 mg off levophed off dopamine #New onset atrial flutter 2-1 AV conduction with RVR resolved #Possible sick sinus syndrome #Hypertensive emergency resolved #Hypertensive heart disease with systolic failure #sp CVC removal from right brachiocephalic/subclavian artery #neck hematoma hb stable, patient is having a bruise, migrating to the back, no expansive hematoma at the moment 05/05/25: extend discussion with the family today and Dr Kumar IR: positive pressure of the ventilator is helping to control the bleeding, we are going to wait until hematoma is decreasing to do another intervention, possibility of tracheostomy and stent placement were discussed with the family, risk of stroke were discussed, if hb and platelets are stable and if is not active bleeding, expectant management will be carried, there is not expansible hematoma, pseudomonas is growing in new sputum culture, still sensible to zosyn, we are going to restart the feedings, amiodarone once daily, no anticoagulation, levophed 2 mcg 05/06/25: his HR has been into the 40s, possible sick sinus syndrome, amiodarone DC, dopamine fixed dose started, levophed titrate down, T max 100, vancomycin will be started, free water started due to hypernatremia, the ecchymosis is migrating to the lower body, his hb is stable, extensive discussion with the family about the plan 05/07/25: HB 9,.9 plt 98, hematoma at the neck looks bigger, STAT angioct scan was done: showing Large heterogeneous hematoma is seen in the right lower neck which measures 9.9 x 5.9 cm and No evidence of acute arterial extravasation or injury. platelets were given. Case discussed with Dr Fernandez, who stated no need of stent at the moment Na 151 d5w 50cc/h, vancomycin was added 05/11/25: off dopamine, HR 70s, BPs elevated, hb is trending down, platelets normal, extensive discussion with the family held about the need of tracheostomy, surgery consult placed for tracheostomy, stop jardiance, free water, continue furosemide 20 mg daily Respiratory #Septic shock #Acute respiratory failure due to COPD exacerbation and heart failure #s/p mechanical ventilation #Respiratory alkalosis #Bilateral pleural effusions L>R at admission: likely parapneumonic Thoracentesis done 1.3 LT drained: exudate #pneumonia gram+/ gram - due to klebsiella pneumoniae and pseudomona aeruginosa #Severe respiratory acidosis resolved TV 450 RR 16 FIO2 30 PEEP 5 Zosyn and vancomycin Endocrinology #DM type 2, hba1c 6.7 ISS, moderate #Hypernatremia resolved Renal #Hyperkalemia, resolved #BAO due to VMN resolved IV insulin and furosemide given GI tube feedings: resume feedings #Mild Hyperbillirubinemia #Constipation resolved lactulose due to constipation Hem/onc #Anemia, normochromic, normocytic: 9.3 #Thrombocytopenia: 137 monitor, transfusion of 2 apheresis of platelets previously Lines: PICC line right upper arm 05/01/25 intubation 04/23/25 extubated 05/01/25 reintubated 05/04/25 kenney catheter 04/23/[address] Corrales Full code Time spent on critical care 86 min excluding procedures and including discussion with family No anticoagulation, high risk of bleeding PUD prophylaxis: protonix IV Plan discussed with: Spouse, Daughter (rn), Other My Orders My Orders Orders - MIS REYEZ RESIDENT Procedure Category Date Status Time Abg W/ Co-Ox RT 05/11/25 Logged 04:00 Chest Portable XY 05/11/25 Resulted 04:00 Creatinine LAB 05/12/25 Verified 04:00 Dietary Evaluation Review Comments: Nutrition Recommendation: 1. TF Vital AF 1.2 Luis Enrique @ 60 ml/hr. start @ 20ml/hr, increase 10ml/hr Q4H until goal is reached. TF at goal volume provides 100% energy & protein needs - 1728 kcal, 108 gm protein, 1168 ml free water 2. Water flush 140ml Q6H if allowed 3. TPN if NPO> 7 days Expected Outcomes/Goals: To meet >75% estimated needs Fu 2-3 days Date of Service: May 11, 2025 Billing Provider: PAMELA CORRALES MD Common Visit Codes: 03257-SIXHBUYR CARE 30-74 MIN, 40497-[id number] CARE-EACH +30MIN MIS REYEZ RESIDENT May 11, 2025 17:16 PAMELA CORRALES MD May 12, 2025 15:15
[2025-05-11 19:15] LABS: INR 1.04 (0.9-1.15); Partial Thromboplastin Time 31.3 SEC (24.5-34.5); Prothrombin Time 11.0 sec (9.3-11.8)
[2025-05-12] VITALS (108 sets, daily range): BP systolic 89–123; BP diastolic 37–93; PULSE 63–79; RESP 8–30; TEMP 99–99.9; O2SAT 97–100
[2025-05-12 03:39] LABS: Alanine Aminotransferase 21 U/L (7-40); Alkaline Phosphatase 59 U/L (46-116); Anion Gap 5 (5-15); BUN/Creatinine Ratio 38.9 (10.0-20.0); Bilirubin, Total 0.7 mg/dL (0.2-1.0); Blood Urea Nitrogen 21 mg/dL (9-23); Carbon Dioxide 31 mmol/L (20-31); Potassium 3.8 mmol/L (3.5-5.1); Sodium 144 mmol/L (136-145)
[2025-05-12 03:42] LABS: Albumin 2.6 g/dL (3.2-4.8); Calcium 7.7 mg/dL (8.7-10.4); Chloride 108 mmol/L (98-107); Glucose 153 mg/dL (74-106); Total Protein 4.8 g/dL (5.7-8.2)
[2025-05-12 03:45] LABS: Hematocrit 26.8 % (41.0-53.0); Hemoglobin 8.8 g/dL (13.5-17.5); Mean Corpuscular Hemoglobin 30.2 pg (28.0-32.0); Mean Corpuscular Volume 91.4 fL (80.0-100.0); Nucleated Red Blood Cells % 0.0 %
[2025-05-12 03:54] LABS: INR 1.04 (0.9-1.15); Partial Thromboplastin Time 32.5 SEC (24.5-34.5); Prothrombin Time 11.0 sec (9.3-11.8)
[2025-05-12 06:32] LABS: Base Excess 2.5 mmol/L (-2.0-3.0)
--- NOTE | 2025-05-12 06:52 | DVH ---
CHEST RADIOGRAPH Indication: intubated Technique: Single frontal view of the chest was obtained COMPARISON: XY CHEST PORTABLE on DOS: 05/11/25, XY CHEST PORTABLE on DOS: 05/10/25, XY CHEST XRAY 1 VIE W on DOS: 05/09/25, XY CHEST XRAY 1 VIEW on DOS: 05/08/25, XY CHEST XRAY 1 VIEW on DOS: 05/07/25 FINDINGS: Lines and Tubes: Unchanged. Lungs: Overall stable appearing hazy bibasilar pulmonary airspace disease likely representing a compo nent of pulmonary edema with or without pneumonia. No pneumothorax. Cardiomediastinal contours: Unremarkable Bones: Unremarkable IMPRESSION: 1. Stable appearing bibasilar pulmonary airspace disease consistent with pulmonary edema with or with out pneumonia. 2. Lines and tubes unchanged.
[2025-05-12] MEDS: InsuLIN REG 1unit/0.01ml Soln (100units/ml) ONE (09:48)
--- NOTE | 2025-05-12 16:46 | DVHPNRES ---
Progress Note Date Seen: May 12, 2025 Resident Creating Document: MIS REYEZ RESIDENT Has the PT tested + for MRSA If YES, has PT been informed?: No Medical Necessity Reason Pt with a Central, PICC or Fol: Yes The following are medically ne: PICC Line, Kenney Catheter Reason for kenney catheter: Strict I&O Subjective Review of Systems Mr. Farley is a 79-year-old male who presents with a chief complaint of bilateral leg swelling. He reports a chronic history of leg swelling, previously managed with a medication obtained from [place], the name of which he cannot recall. He admits to not taking this medication for some time. The patient is a poor historian but endorses a past medical history of diabetes mellitus (DM), hypertension (HTN), and an unspecified "heart issue." He denies any recent chest pain, shortness of breath, or dizziness. On triage, his blood pressure was markedly elevated at 180/116 mmHg with a pulse of 140 bpm. Given his history and current presentation, differential diagnoses include fluid retention possibly due to cardiac or renal insufficiency, medication noncompliance, electrolyte imbalance, and other systemic causes. Past Medical History diabetes mellitus (DM), hypertension (HTN), and an unspecified "heart issue." Past Surgical History none Family History: None (Noncontributory) Smoke: No ALCOHOL: none Drugs: None Lives: with Family Domestic Violence: Neg 04/23/25: patient was found with high oxygen requirements, respiratory acidosis, BIPAP was placed, POCUS at bedside possible reduced ejection fraction and hypokinesis, patient is having acute respiratory failure due to acute exacerbation of heart failure and COPD, antibiotics and solumedrol were started, mild hypokalemia was resolved with IV insulin 10 ui and furosemide, patient still has HR above 130, carvedilol is added, patient is MARIELENA status 04/24/25: during the night of 04/23/25, patient started to be more hypercapnic and drowsy, not responding to BIPAP, so talking with bhavani family the decision was to intubate, also patient started to be hypotensive with the need of vasopressors, central line was attempted to be placed on right yugular vein but the catheter is found to be entering through the brachiocephalic (innominate) artery with its tip residing in the Aortic arch, AngioCT scan STAT confirmed the findings, general surgery was consulted who advice endovascular stent placement to span the defect in the artery by means of transfemoral arteriography done by Interventional Radiologist, the removal of the catheter was done successfully by Dr José ARZOLA (formal radiological report pending) , right now we are going to f/u hb and bed rest, family was informed about the interventions, consent forms were signed, at the moment on fentanyl and versed drip, levophed 7 mcg, ABG after procedure ph 7.47 pco2 38 po2 69.6 hco3 27.8 ,continue monitor 04/27/25: During the weekend, no bleeding from the puncture site, patient is being on afib, levophed was wean off and phenylephrine was started, also digoxin was on, low dose heparin was started due to high chadvasc. Also sedation vacation was done, but today at 4 am patient started to be agitated. His platelets are 129. Cardiology today, they changed digoxin to amiodarone. Anticoagulation was DC, he will benefit for cath due to EF 25% , possible on sunday, Lipid panel normal. 04/28/25: amiodarone dc by cardiology, off pressors, thoracentesis done, 1.3 LT drained, klebsiella positive in sputum, [facility] tomorrow 04/29/25: off pressors, HR in the 70s, patient was slightly agitated, sedation was increased, vanco dc, [facility] with normal coronaries 04/30/25: off pressors, patient will benefit from cpap trial, precedex am, dc TLC, PICC line consult, cardiology started jardiance and metoprolol 05/01/25: PICC line placed at 7 am, on precedex infusion cpap started at 12: 30 pm ABG: PaFiO2 271, patient had an episode of agitation HR went up to 170s, afib with RVR, amiodarone drip was ordered, but after the agitation episode resolves, HR went down, right now patient is calm, extubated at 2 pm. 05/02/25: extubated, repleted K, agitated, adding Seroquel. pending bedside swallow, off pressors 05/03/25: bruise on neck expanding, hb drop. sending for CT, start oral feeding, holding lasix for now, increasing GDMT. avoid CCB. CT showed active bleeding, decision to transfer [facility] for CT/vasc. ss consult placed. trend HH. patient was intubated for airway protection 05/04/25: patient was seen by IR, neck angiogram done with active bleeding stopped. pressor low dose likely sedation related. c/w to trend h/h. plt >100, given vit k. 05/05/25: extend discussion with the family today and Dr Kumar IR: positive pressure of the ventilator is helping to control the bleeding, we are going to wait until hematoma is decreasing to do another intervention, possibility of tracheostomy and stent placement were discussed with the family, risk of stroke were discussed, if hb and platelets are stable and if is not active bleeding expectant management will be done, there is not expansible hematoma, pseudomonas is growing in new sputum culture, still sensible to zosyn, we are going to restart the feedings, amiodarone once daily, no anticoagulation, levophed 2 mcg 05/06/25: his HR has been into the 40s, possible sick sinus syndrome, amiodarone DC, dopamine fixed dose started, levophed titrate down, T max 100, vancomycin will be started, free water started due to hypernatremia, the ecchymosis is migrating to the lower body, his hb is stable, extensive discussion with the family about the plan, 05/07/25: HB 9,.9 plt 98, hematoma at the neck looks bigger, STAT angioct scan was done: showing Large heterogeneous hematoma is seen in the right lower neck which measures 9.9 x 5.9 cm and No evidence of acute arterial extravasation or injury. platelets were given. Case discussed with Dr Fernandez, who stated no need of stent at the moment Na 151 d5w 50cc/h, vancomycin was added 05/08/25: hb 10 plat 109 --> 98, new apheresis of platelets given, Na 145, dc d5w, HR is trending slowly higher, we are going to continue dopamine fixed dose, but the risk of going back to afib exist, levophed 1 mcg, IR, Dr Fernandez, came at bedside, explained to the family that in case of active bleeding stent will be placed and the risk of adverse events is about 15-20% (stroke, stent thrombosis), also the possibility of tracheostomy is on the table if hematoma is not subsiding. Bag of 5 pounds is on the hematoma to help with resorption 05/09-initially here for pneumonia. Central line was tried for Levophed which was inadvertently inserted into brachiocephalic CBC, which led to bleed evaluated by IR concluded as controlled bleed likely hematoma. Area is marked there is some mild increase in ecchymosis on right neck but not significant from marked area. Fecal not repeat imaging today. Also having thrombocytopenia stable today at 1:10 a.m.. We will transfuse if platelets below 100. We will continue primary team's plan no sedation vacations/CPAP trial over the weekend. Patient bradycardic currently on Levophed 0.5 dopamine drip to. Other drips include Versed, fentanyl, antibiotics Zosyn. Patient getting enteral feeds OG tube with free water flushes. Ventilated a.c. 16/450/30%/8.0. Breath sounds bilateral, bradycardic on exam, no edema, pulses present, hematoma right shoulder acknowledged. We will continue to monitor. 05/10/25---right shoulder hematoma/ecchymosis again a little increased in size but hemoglobin stable, platelets stable hemodynamics stable. We will defer imaging to tomorrow to primary. Vitals stable heart rate over 60. Labs more than 70,. Pulmonology wanted to try to wean, we will communicate to nurse to inform pulmonology primary team advised against weaning trials over the weekend. Drips include Versed 5, fentanyl 175, dopa to.. Vent a.c. 16/4 50/30%/8.0. Bowel movements 3 overnight, urine output adequate. We will continue primary team's management. 05/11/25: off dopamine, HR 70s, BPs elevated, hb is trending down, platelets normal, extensive discussion with the family held about the need of tracheostomy, surgery consult placed for tracheostomy, stop jardiance, free water, continue furosemide 20 mg daily 05/12/25: off pressors, HR control, hb is trending down, platelets trending high, dr Dorsey stated tracheostomy tomorrow, due to persistent fevers, dc zosyn, add meropenem, new cultures ordered, extensive discussion with family about the need of tracheostomy Objective vital signs Vital Sign Date Time Temp Pulse Resp B/P (MAP) Pulse Ox O2 Delivery O2 Flow Rate FiO2 05/12/25 16:15 99.5 64 16 106/46 (25) 100 211.1 05/12/25 16:00 30 05/12/25 16:00 Mechanical Ventilator+ Total Intake and Output 05/11/25 05/11/25 05/12/25 15:00 23:00 07:00 Intake Total 367.5 ml 995.5 ml 800.5 ml Output Total 2000 ml 120 ml Balance 367.5 ml -1004.5 ml 680.5 ml medications Current Medications Medications Dose Ordered Sig/Jose Alfredo Route Start Time Stop Time Status Last Admin Dose Admin Acetaminophen 650 mg Q6HP PRN PO 04/23/25 05:00 05/02/25 21:33 650 MG Propofol 100 ml @ 2.268 mls/ hr Q24H IV 04/23/25 20:45 05/01/25 04:51 2.268 MLS/HR Fentanyl Citrate 250 ml @ 2.5 mls/hr Q24H IV 04/23/25 20:45 05/12/25 09:05 17.5 MLS/HR Midazolam HCl 50 ml @ 1 mls/hr Q24H IV 04/23/25 23:15 05/12/25 09:01 6 MLS/HR Piperacillin Sod/ Tazobactam Sod 100 ml @ 25 mls/hr Q8HR IV 04/24/25 06:00 05/12/25 14:32 25 MLS/HR Pantoprazole Sodium 40 mg DAILY IV 04/28/25 10:00 05/12/25 08:59 40 MG Lactulose 30 ml BID PO 04/28/25 10:00 05/11/25 22:06 30 ML Sodium Chloride 10 ml QSHIFT@10,22 IV 05/01/25 10:00 05/12/25 08:59 10 ML Enteral Nutritional Formula 1,000 ml 60ML/HR GT 05/05/25 16:45 05/09/25 18:21 1,000 ML Norepinephrine Bitartrate 250 ml @ 3.75 mls/hr Q24H IV 05/06/25 14:45 05/08/25 08:05 1.875 MLS/HR Vancomycin HCl 0 ml @ 0 mls/hr UD IV 05/06/25 18:15 Atropine Sulfate 1 mg UD PRN IV 05/07/25 02:00 Vancomycin HCl 150 ml @ 100 mls/hr Q12H IV 05/07/25 22:00 05/12/25 08:59 100 MLS/HR Dopamine HCl/ Dextrose 250 ml @ 4.59 mls/hr Q24H IV 05/07/25 16:15 05/10/25 06:24 4.59 MLS/HR Dextrose 50 ml UD PRN IV 05/07/25 18:00 Insulin Human Regular ACHS SC 05/08/25 17:00 05/12/25 16:00 2 UNITS Diagnostic Test (Pha) 1 strip ACHS 05/08/25 17:00 05/12/25 16:00 1 STRIP Furosemide 20 mg DAILY IV 05/10/25 10:00 05/12/25 08:59 20 MG Examination General Appearance: TV 450 RR 16 FIO2 30 PEEP 5 HEENT: Atraumatic, PERRLA, EOMI, Mucous membr. moist/pink, the hematoma is stable but appears to be undergoing resorption, is migrated along the subcutaneous to the back and flanks, weight of 5 pound is helping on the resorption Respiratory: Bilateral basal crackles Cardiovascular: rhythmic HR 50 Abdominal: Normal bowel sounds, Soft, No tenderness, No hepatospenomegaly, No masses Extremities: Edema, PICC line right arm Skin: No rashes, No breakdown, No significant lesion laboratory and microbiology Laboratory Tests 05/12/25 02:55 Test 05/12/25 02:55 Range/Units Serum Glucose 153 H 74-106 mg/dL Microbiology Date/Time Source Procedure Growth Status 05/03/25 20:20 Trachea Gram Stain - Final Complete 05/03/25 20:20 Respiratory Culture - Final Pseudomonas aeruginosa Complete 04/28/25 12:55 Pleural Fluid Gram Stain - Final Complete 04/28/25 12:55 Pleural Fluid Aerobic Culture - Final Complete 04/24/25 01:45 Blood Blood Culture - Final NO GROWTH AFTER 5 DAYS OF INCUBATION. Complete 04/23/25 21:00 Sputum Expectorated Sputum Gram Stain - Final Complete 04/23/25 21:00 Respiratory Culture - Final Klebsiella pneumoniae Complete 04/23/25 19:00 Voided Urine Urine Culture - Final Complete Problem List/Assessment/Plan Problem List/Assessment/Plan Neurologic #Acute metabolic encephalopathy due to hypercapnic respiratory failure sedation: fentanyl and midazolam Cardiovascular #Acute exacerbation of heart failure with possible reduced ejection fraction #Septic shock ECHO EF 25%: severe dilated cavities, LHC no significant CAD Cardiology on board dc jardiance 10 mg off levophed off dopamine #New onset atrial flutter 2-1 AV conduction with RVR resolved #Possible sick sinus syndrome #Hypertensive emergency resolved #Hypertensive heart disease with systolic failure #sp CVC removal from right brachiocephalic/subclavian artery #neck hematoma hb stable, patient is having a bruise, migrating to the back, no expansive hematoma at the moment 05/05/25: extend discussion with the family today and Dr Kumar IR: positive pressure of the ventilator is helping to control the bleeding, we are going to wait until hematoma is decreasing to do another intervention, possibility of tracheostomy and stent placement were discussed with the family, risk of stroke were discussed, if hb and platelets are stable and if is not active bleeding, expectant management will be carried, there is not expansible hematoma, pseudomonas is growing in new sputum culture, still sensible to zosyn, we are going to restart the feedings, amiodarone once daily, no anticoagulation, levophed 2 mcg 05/06/25: his HR has been into the 40s, possible sick sinus syndrome, amiodarone DC, dopamine fixed dose started, levophed titrate down, T max 100, vancomycin will be started, free water started due to hypernatremia, the ecchymosis is migrating to the lower body, his hb is stable, extensive discussion with the family about the plan 05/07/25: HB 9,.9 plt 98, hematoma at the neck looks bigger, STAT angioct scan was done: showing Large heterogeneous hematoma is seen in the right lower neck which measures 9.9 x 5.9 cm and No evidence of acute arterial extravasation or injury. platelets were given. Case discussed with Dr Fernandez, who stated no need of stent at the moment Na 151 d5w 50cc/h, vancomycin was added 05/11/25: off dopamine, HR 70s, BPs elevated, hb is trending down, platelets normal, extensive discussion with the family held about the need of tracheostomy, surgery consult placed for tracheostomy, stop jardiance, free water, continue furosemide 20 mg daily 05/12/25: off pressors, HR control, hb is trending down, platelets trending high, dr Dorsey stated tracheostomy tomorrow, due to persistent fevers, dc zosyn, add meropenem, new cultures ordered, extensive discussion with family about the need of tracheostomy Respiratory #Septic shock #Acute respiratory failure due to COPD exacerbation and heart failure #s/p mechanical ventilation #Respiratory alkalosis #Bilateral pleural effusions L>R at admission: likely parapneumonic Thoracentesis done 1.3 LT drained: exudate #pneumonia gram+/ gram - due to klebsiella pneumoniae and pseudomona aeruginosa #Severe respiratory acidosis resolved TV 450 RR 16 FIO2 30 PEEP 5 meropenem and vancomycin Endocrinology #DM type 2, hba1c 6.7 ISS, moderate #Hypernatremia resolved Renal #Hyperkalemia, resolved #BAO due to VMN resolved IV insulin and furosemide given GI tube feedings: resume feedings #Mild Hyperbillirubinemia #Constipation resolved lactulose due to constipation Hem/onc #Anemia, normochromic, normocytic: 8.8 #Thrombocytopenia: 137 monitor, transfusion of 2 apheresis of platelets previously Lines: PICC line right upper arm 05/01/25 intubation 04/23/25 extubated 05/01/25 reintubated 05/04/25 kenney catheter 04/23/[address] Corrales Full code Time spent on critical care 88 min excluding procedures and including discussion with family No anticoagulation, high risk of bleeding PUD prophylaxis: protonix IV Plan discussed with: Spouse, Daughter My Orders My Orders Orders - MIS REYEZ RESIDENT Procedure Category Date Status Time Chest Xray 1 View XY 05/12/25 Resulted 04:00 Abg W/ Co-Ox RT 05/12/25 Logged 04:00 Blood Culture BETSY 05/12/25 In Process 10:15 Respiratory Culture BETSY 05/12/25 Logged W/ Gs 10:15 Urine Bacterial BETSY 05/12/25 In Process Culture 10:15 Meropenem 1gm Ivpb X PHA 05/12/25 Transmitted ONE 16:45 Meropenem 1gm PHA 05/12/25 Transmitted Q8h(Gfr>50) 22:00 Dietary Evaluation Review Comments: Nutrition Recommendation: 1. TF Vital AF 1.2 Luis Enrique @ 60 ml/hr. start @ 20ml/hr, increase 10ml/hr Q4H until goal is reached. TF at goal volume provides 100% energy & protein needs - 1728 kcal, 108 gm protein, 1168 ml free water 2. Water flush 140ml Q6H if allowed 3. TPN if NPO> 7 days Expected Outcomes/Goals: To meet >75% estimated needs Fu 2-3 days Date of Service: May 12, 2025 Billing Provider: PAMELA CORRALES MD Common Visit Codes: 12245-IDUVMMRD CARE 30-74 MIN, 10520-XMURDCRZ CARE-EACH +30MIN MIS REYEZ RESIDENT May 12, 2025 16:46 PAMELA CORRALES MD May 13, 2025 14:20
[2025-05-12] MEDS: MEROPENEM 1GM IVPB 50 ML IV ONE (17:27)
[2025-05-12] MEDS ORDERED: MEROPENEM 1GM IVPB 50 ML IV SCH (22:00)
[2025-05-12] MEDS: MEROPENEM 1GM IVPB 50 ML IV SCH (23:32)
[2025-05-13] VITALS (96 sets, daily range): BP systolic 98–171; BP diastolic 38–77; PULSE 59–83; RESP 11–26; TEMP 96.4–100.6; O2SAT 99–100
--- NOTE | 2025-05-13 02:48 | DVH ---
CHEST RADIOGRAPH Indication: intubated Technique: Single frontal view of the chest was obtained COMPARISON: XY CHEST XRAY 1 VIEW on DOS: 05/12/25, XY CHEST PORTABLE on DOS: 05/11/25, XY CHEST PORTABL E on DOS: 05/10/25, XY CHEST XRAY 1 VIEW on DOS: 05/09/25, XY CHEST XRAY 1 VIEW on DOS: 05/08/25 FINDINGS: Lines and Tubes: Slight interval advancement of endotracheal tube such that the tip now projects appr oximately 2.2 cm above the level of the kate. Remaining lines and tubes unchanged. Lungs: Bibasilar pulmonary airspace disease is stable in appearance. The left costophrenic angle is e xcluded from the image. No pneumothorax. Cardiomediastinal contours: Unremarkable Bones: Unremarkable IMPRESSION: 1. Stable bibasilar pulmonary airspace disease. Left costophrenic angle excluded. 2. Interval advancement of endotracheal tube as above. Remaining lines and tubes unchanged.
[2025-05-13 04:04] LABS: Hematocrit 27.6 % (41.0-53.0); Hemoglobin 9.0 g/dL (13.5-17.5); Mean Corpuscular Hemoglobin 30.0 pg (28.0-32.0); Mean Corpuscular Volume 91.8 fL (80.0-100.0); Nucleated Red Blood Cells % 0.1 %
[2025-05-13 04:18] LABS: Alanine Aminotransferase 24 U/L (7-40); Alkaline Phosphatase 61 U/L (46-116); Anion Gap 4 (5-15); BUN/Creatinine Ratio 28.8 (10.0-20.0); Blood Urea Nitrogen 19 mg/dL (9-23); Potassium 3.8 mmol/L (3.5-5.1)
[2025-05-13 04:20] LABS: Albumin 2.8 g/dL (3.2-4.8); Bilirubin, Total 0.6 mg/dL (0.2-1.0); Calcium 7.8 mg/dL (8.7-10.4); Carbon Dioxide 32 mmol/L (20-31); Chloride 110 mmol/L (98-107); Glucose 152 mg/dL (74-106); Sodium 146 mmol/L (136-145); Total Protein 5.0 g/dL (5.7-8.2)
[2025-05-13 06:32] LABS: Base Excess 5.1 mmol/L (-2.0-3.0)
[2025-05-13] MEDS ORDERED: HYDROmorphone HCL 2 MG/ML VL/or syr ONE (12:53)
[2025-05-13] MEDS ORDERED: fentaNYL CITRATE 100 MCG/2 ML VL ONE (12:53)
[2025-05-13] MEDS ORDERED: MIDAZOLAM HCL 2MG/2ML 2ml VIAL (1mg/ml) ONE (12:53)
[2025-05-13] MEDS: BUPIVACAINE HCL 0.25% P/F 10 ML VIAL ONE (13:25)
[2025-05-13] MEDS: LIDOCAINE W/ EPINEPHRINE 1% 20ML VIAL ONE (13:25)
--- NOTE | 2025-05-13 14:24 | DVHOP ---
DATE OF SURGERY: 05/13/2025 PREOPERATIVE DIAGNOSIS: Ventilator-dependent respiratory failure. POSTOPERATIVE DIAGNOSES: Ventilator-dependent respiratory failure plus right cervical hematoma. HOSPITAL COURSE: The patient was admitted with worsening pulmonary condition and underwent an intubation following which he is remaining ventilator dependent. He had a catheter placed into the right jugular vein, which was misplaced into the innominate artery. The patient required an endovascular intervention to correct this problem and subsequently developed a hematoma in the right neck extending into the mediastinum. He is now referred for tracheostomy to facilitate extubation eventually. The patient is under general anesthesia administered by Dr. Layton. The neck and chest prepped and draped. An incision was made into the lower neck ____ the patient's soft tissues divided with electrocautery. The hematoma was entered and retracted laterally. There was some aspiration of old blood with no evidence of ongoing hemorrhage. The patient's thyroid had to be displaced inferiorly facilitating access to the trachea. The second space between the cartilaginous portion of the trachea was then incised with the patient on room air to facilitate the exchange of tubes without a fire danger. A size 8 cuffed non-fenestrated tracheostomy tube was then advanced into the tracheotomy as the anesthesiologist withdrew the endotracheal tube. Reaching the final position, the tracheostomy revealed immediate capture of CO2 and return of normal ventilation. The tube was secured with insufflation of the cuff with 7 mL of air, further secured with two interrupted Prolene sutures and a circumferential umbilical tape provided in the kit. The patient remained in unchanged condition at the termination of the procedure. Chest x-ray was ordered and is pending at the time of this dictation. The patient's daughter, Joslyn, was thoroughly informed at [phone]. MD SANTOSH Luna/SHAWANDA/HIEU TID: [id number] RECEIPT: [id number]
--- NOTE | 2025-05-13 14:53 | DVH ---
CHEST RADIOGRAPH Indication: s/p tracheostomy Technique: Single frontal view of the chest was obtained COMPARISON: XY CHEST XRAY 1 VIEW on DOS: 05/13/25, XY CHEST XRAY 1 VIEW on DOS: 05/12/25, XY CHEST PORT ABLE on DOS: 05/11/25, XY CHEST PORTABLE on DOS: 05/10/25, XY CHEST XRAY 1 VIEW on DOS: 05/09/25 FINDINGS: Lines and Tubes: Tracheostomy tube, enteric catheter and right PICC in satisfactory position Lungs: Multifocal airspace disease Pleura: No effusion. No pneumothorax. Cardiomediastinal contours: Unremarkable Bones: Unremarkable IMPRESSION: Lines and tubes in satisfactory position. No significant interval change.
--- NOTE | 2025-05-13 17:25 | DVHPNRES ---
Progress Note Date Seen: May 13, 2025 Resident Creating Document: MIS REYEZ RESIDENT Has the PT tested + for MRSA If YES, has PT been informed?: No Medical Necessity Reason Pt with a Central, PICC or Fol: Yes The following are medically ne: PICC Line, Kenney Catheter Reason for kenney catheter: Strict I&O Subjective Review of Systems Mr. Farley is a 79-year-old male who presents with a chief complaint of bilateral leg swelling. He reports a chronic history of leg swelling, previously managed with a medication obtained from [facility], the name of which he cannot recall. He admits to not taking this medication for some time. The patient is a poor historian but endorses a past medical history of diabetes mellitus (DM), hypertension (HTN), and an unspecified "heart issue." He denies any recent chest pain, shortness of breath, or dizziness. On triage, his blood pressure was markedly elevated at 180/116 mmHg with a pulse of 140 bpm. Given his history and current presentation, differential diagnoses include fluid retention possibly due to cardiac or renal insufficiency, medication noncompliance, electrolyte imbalance, and other systemic causes. Past Medical History diabetes mellitus (DM), hypertension (HTN), and an unspecified "heart issue." Past Surgical History none Family History: None (Noncontributory) Smoke: No ALCOHOL: none Drugs: None Lives: with Family Domestic Violence: Neg 04/23/25: patient was found with high oxygen requirements, respiratory acidosis, BIPAP was placed, POCUS at bedside possible reduced ejection fraction and hypokinesis, patient is having acute respiratory failure due to acute exacerbation of heart failure and COPD, antibiotics and solumedrol were started, mild hypokalemia was resolved with IV insulin 10 ui and furosemide, patient still has HR above 130, carvedilol is added, patient is MARIELENA status 04/24/25: during the night of 04/23/25, patient started to be more hypercapnic and drowsy, not responding to BIPAP, so talking with bhavani family the decision was to intubate, also patient started to be hypotensive with the need of vasopressors, central line was attempted to be placed on right yugular vein but the catheter is found to be entering through the brachiocephalic (innominate) artery with its tip residing in the Aortic arch, AngioCT scan STAT confirmed the findings, general surgery was consulted who advice endovascular stent placement to span the defect in the artery by means of transfemoral arteriography done by Interventional Radiologist, the removal of the catheter was done successfully by Dr José ARZOLA (formal radiological report pending) , right now we are going to f/u hb and bed rest, family was informed about the interventions, consent forms were signed, at the moment on fentanyl and versed drip, levophed 7 mcg, ABG after procedure ph 7.47 pco2 38 po2 69.6 hco3 27.8 ,continue monitor 04/27/25: During the weekend, no bleeding from the puncture site, patient is being on afib, levophed was wean off and phenylephrine was started, also digoxin was on, low dose heparin was started due to high chadvasc. Also sedation vacation was done, but today at 4 am patient started to be agitated. His platelets are 129. Cardiology today, they changed digoxin to amiodarone. Anticoagulation was DC, he will benefit for cath due to EF 25% , possible on sunday, Lipid panel normal. 04/28/25: amiodarone dc by cardiology, off pressors, thoracentesis done, 1.3 LT drained, klebsiella positive in sputum, [facility] tomorrow 04/29/25: off pressors, HR in the 70s, patient was slightly agitated, sedation was increased, vanco dc, [facility] with normal coronaries 04/30/25: off pressors, patient will benefit from cpap trial, precedex am, dc TLC, PICC line consult, cardiology started jardiance and metoprolol 05/01/25: PICC line placed at 7 am, on precedex infusion cpap started at 12: 30 pm ABG: PaFiO2 271, patient had an episode of agitation HR went up to 170s, afib with RVR, amiodarone drip was ordered, but after the agitation episode resolves, HR went down, right now patient is calm, extubated at 2 pm. 05/02/25: extubated, repleted K, agitated, adding Seroquel. pending bedside swallow, off pressors 05/03/25: bruise on neck expanding, hb drop. sending for CT, start oral feeding, holding lasix for now, increasing GDMT. avoid CCB. CT showed active bleeding, decision to transfer [facility] for CT/vasc. ss consult placed. trend HH. patient was intubated for airway protection 05/04/25: patient was seen by IR, neck angiogram done with active bleeding stopped. pressor low dose likely sedation related. c/w to trend h/h. plt >100, given vit k. 05/05/25: extend discussion with the family today and Dr Kumar IR: positive pressure of the ventilator is helping to control the bleeding, we are going to wait until hematoma is decreasing to do another intervention, possibility of tracheostomy and stent placement were discussed with the family, risk of stroke were discussed, if hb and platelets are stable and if is not active bleeding expectant management will be done, there is not expansible hematoma, pseudomonas is growing in new sputum culture, still sensible to zosyn, we are going to restart the feedings, amiodarone once daily, no anticoagulation, levophed 2 mcg 05/06/25: his HR has been into the 40s, possible sick sinus syndrome, amiodarone DC, dopamine fixed dose started, levophed titrate down, T max 100, vancomycin will be started, free water started due to hypernatremia, the ecchymosis is migrating to the lower body, his hb is stable, extensive discussion with the family about the plan, 05/07/25: HB 9,.9 plt 98, hematoma at the neck looks bigger, STAT angioct scan was done: showing Large heterogeneous hematoma is seen in the right lower neck which measures 9.9 x 5.9 cm and No evidence of acute arterial extravasation or injury. platelets were given. Case discussed with Dr Fernandez, who stated no need of stent at the moment Na 151 d5w 50cc/h, vancomycin was added 05/08/25: hb 10 plat 109 --> 98, new apheresis of platelets given, Na 145, dc d5w, HR is trending slowly higher, we are going to continue dopamine fixed dose, but the risk of going back to afib exist, levophed 1 mcg, IR, Dr Fernandez, came at bedside, explained to the family that in case of active bleeding stent will be placed and the risk of adverse events is about 15-20% (stroke, stent thrombosis), also the possibility of tracheostomy is on the table if hematoma is not subsiding. Bag of 5 pounds is on the hematoma to help with resorption 05/09-initially here for pneumonia. Central line was tried for Levophed which was inadvertently inserted into brachiocephalic CBC, which led to bleed evaluated by IR concluded as controlled bleed likely hematoma. Area is marked there is some mild increase in ecchymosis on right neck but not significant from marked area. Fecal not repeat imaging today. Also having thrombocytopenia stable today at 1:10 a.m.. We will transfuse if platelets below 100. We will continue primary team's plan no sedation vacations/CPAP trial over the weekend. Patient bradycardic currently on Levophed 0.5 dopamine drip to. Other drips include Versed, fentanyl, antibiotics Zosyn. Patient getting enteral feeds OG tube with free water flushes. Ventilated a.c. 16/450/30%/8.0. Breath sounds bilateral, bradycardic on exam, no edema, pulses present, hematoma right shoulder acknowledged. We will continue to monitor. 05/10/25---right shoulder hematoma/ecchymosis again a little increased in size but hemoglobin stable, platelets stable hemodynamics stable. We will defer imaging to tomorrow to primary. Vitals stable heart rate over 60. Labs more than 70,. Pulmonology wanted to try to wean, we will communicate to nurse to inform pulmonology primary team advised against weaning trials over the weekend. Drips include Versed 5, fentanyl 175, dopa to.. Vent a.c. 16/4 50/30%/8.0. Bowel movements 3 overnight, urine output adequate. We will continue primary team's management. 05/11/25: off dopamine, HR 70s, BPs elevated, hb is trending down, platelets normal, extensive discussion with the family held about the need of tracheostomy, surgery consult placed for tracheostomy, stop jardiance, free water, continue furosemide 20 mg daily 05/12/25: off pressors, HR control, hb is trending down, platelets trending high, dr Dorsey stated tracheostomy tomorrow, due to persistent fevers, dc zosyn, add meropenem, new cultures ordered, extensive discussion with family about the need of tracheostomy 05/13/25: tracheostomy was done: The hematoma was entered and retracted laterally. There was some aspiration of old blood with no evidence of ongoing hemorrhage. A size 8 cuffed non-fenestrated tracheostomy tube was placed, patient came back to the unit stable Objective vital signs Vital Sign Date Time Temp Pulse Resp B/P (MAP) Pulse Ox O2 Delivery O2 Flow Rate FiO2 05/13/25 17:00 97.7 72 16 133/59 (83) 100 207.9 05/13/25 16:21 70 05/13/25 16:00 Mechanical Ventilator+ Total Intake and Output 05/12/25 05/12/25 05/13/25 15:00 23:00 07:00 Intake Total 363.0 ml 763.0 ml 811.501 ml Output Total 1200 ml 800 ml Balance 363.0 ml -437.0 ml 11.501 ml medications Current Medications Medications Dose Ordered Sig/Jose Alfredo Route Start Time Stop Time Status Last Admin Dose Admin Acetaminophen 650 mg Q6HP PRN PO 04/23/25 05:00 05/13/25 01:12 650 MG Propofol 100 ml @ 2.268 mls/ hr Q24H IV 04/23/25 20:45 05/01/25 04:51 2.268 MLS/HR Fentanyl Citrate 250 ml @ 2.5 mls/hr Q24H IV 04/23/25 20:45 05/13/25 11:21 17.5 MLS/HR Midazolam HCl 50 ml @ 1 mls/hr Q24H IV 04/23/25 23:15 05/13/25 11:17 6 MLS/HR Pantoprazole Sodium 40 mg DAILY IV 04/28/25 10:00 05/13/25 09:02 40 MG Lactulose 30 ml BID PO 04/28/25 10:00 05/12/25 21:07 30 ML Sodium Chloride 10 ml QSHIFT@10,22 IV 05/01/25 10:00 05/13/25 09:02 10 ML Enteral Nutritional Formula 1,000 ml 60ML/HR GT 05/05/25 16:45 05/12/25 20:38 1,000 ML Norepinephrine Bitartrate 250 ml @ 3.75 mls/hr Q24H IV 05/06/25 14:45 05/13/25 04:08 3.75 MLS/HR Vancomycin HCl 0 ml @ 0 mls/hr UD IV 05/06/25 18:15 Atropine Sulfate 1 mg UD PRN IV 05/07/25 02:00 Dopamine HCl/ Dextrose 250 ml @ 4.59 mls/hr Q24H IV 05/07/25 16:15 05/10/25 06:24 4.59 MLS/HR Dextrose 50 ml UD PRN IV 05/07/25 18:00 Insulin Human Regular ACHS SC 05/08/25 17:00 05/13/25 06:09 3 UNITS Diagnostic Test (Pha) 1 strip ACHS 05/08/25 17:00 05/13/25 16:37 1 STRIP Furosemide 20 mg DAILY IV 05/10/25 10:00 05/13/25 09:02 20 MG Meropenem 50 ml @ 17 mls/hr Q8H IV 05/12/25 23:00 05/13/25 15:11 17 MLS/HR Vancomycin HCl 150 ml @ 100 mls/hr Q12H IV 05/13/25 21:00 Examination General Appearance: TV 450 RR 16 FIO2 30 PEEP 5 HEENT: Atraumatic, PERRLA, EOMI, Mucous membr. moist/pink, the hematoma looks stable but appears to be undergoing resorption, is migrated along the subcutaneous to the back and flanks, weight of 5 pound is helping on the resorption, tracheostomy functioning Respiratory: Bilateral basal crackles Cardiovascular: rhythmic HR 60-70 Abdominal: Normal bowel sounds, Soft, No tenderness, No hepatospenomegaly, No masses Extremities: PICC line right arm Skin: No rashes, No breakdown, No significant lesion laboratory and microbiology Laboratory Tests 05/13/25 03:35 Test 05/13/25 03:35 Range/Units Serum Glucose 152 H 74-106 mg/dL Microbiology Date/Time Source Procedure Growth Status 05/12/25 18:10 Sputum Gram Stain - Final Resulted 05/12/25 18:10 Sputum Respiratory Culture - Preliminary Resulted 05/12/25 12:44 Voided Urine Urine Culture - Preliminary Resulted 05/12/25 11:12 Blood Blood Culture - Preliminary NO GROWTH AFTER 24 HOURS OF INCUBATION. Resulted 05/03/25 20:20 Trachea Gram Stain - Final Complete 05/03/25 20:20 Respiratory Culture - Final Pseudomonas aeruginosa Complete 04/28/25 12:55 Pleural Fluid Gram Stain - Final Complete 04/28/25 12:55 Pleural Fluid Aerobic Culture - Final Complete Problem List/Assessment/Plan Problem List/Assessment/Plan Neurologic #Acute metabolic encephalopathy due to hypercapnic respiratory failure sedation: fentanyl and midazolam Cardiovascular #Acute exacerbation of heart failure with possible reduced ejection fraction #Septic shock ECHO EF 25%: severe dilated cavities, LHC no significant CAD Cardiology on board dc jardiance 10 mg levophed low dose off dopamine #New onset atrial flutter 2-1 AV conduction with RVR resolved #Possible sick sinus syndrome #Hypertensive emergency resolved #Hypertensive heart disease with systolic failure #sp CVC removal from right brachiocephalic/subclavian artery #neck hematoma hb stable, patient is having a bruise, migrating to the back, no expansive hematoma at the moment 05/05/25: extend discussion with the family today and Dr Kumar IR: positive pressure of the ventilator is helping to control the bleeding, we are going to wait until hematoma is decreasing to do another intervention, possibility of tracheostomy and stent placement were discussed with the family, risk of stroke were discussed, if hb and platelets are stable and if is not active bleeding, expectant management will be carried, there is not expansible hematoma, pseudomonas is growing in new sputum culture, still sensible to zosyn, we are going to restart the feedings, amiodarone once daily, no anticoagulation, levophed 2 mcg 05/06/25: his HR has been into the 40s, possible sick sinus syndrome, amiodarone DC, dopamine fixed dose started, levophed titrate down, T max 100, vancomycin will be started, free water started due to hypernatremia, the ecchymosis is migrating to the lower body, his hb is stable, extensive discussion with the family about the plan 05/07/25: HB 9,.9 plt 98, hematoma at the neck looks bigger, STAT angioct scan was done: showing Large heterogeneous hematoma is seen in the right lower neck which measures 9.9 x 5.9 cm and No evidence of acute arterial extravasation or injury. platelets were given. Case discussed with Dr Fernandez, who stated no need of stent at the moment Na 151 d5w 50cc/h, vancomycin was added 05/11/25: off dopamine, HR 70s, BPs elevated, hb is trending down, platelets normal, extensive discussion with the family held about the need of tracheostomy, surgery consult placed for tracheostomy, stop jardiance, free water, continue furosemide 20 mg daily 05/12/25: off pressors, HR control, hb is trending down, platelets trending high, dr Dorsey stated tracheostomy tomorrow, due to persistent fevers, dc zosyn, add meropenem, new cultures ordered, extensive discussion with family about the need of tracheostomy 05/13/25: tracheostomy was done: The hematoma was entered and retracted laterally. There was some aspiration of old blood with no evidence of ongoing hemorrhage. A size 8 cuffed non-fenestrated tracheostomy tube was placed, patient came back to the unit stable, low dose levophed Respiratory #Septic shock #Acute respiratory failure due to COPD exacerbation and heart failure #s/p mechanical ventilation #Respiratory alkalosis #Bilateral pleural effusions L>R at admission: likely parapneumonic Thoracentesis done 1.3 LT drained: exudate #pneumonia gram+/ gram - due to klebsiella pneumoniae and pseudomonas aeruginosa #Severe respiratory acidosis resolved TV 450 RR 16 FIO2 30 PEEP 5 meropenem and vancomycin #SP tracheostomy 05/13/25 Endocrinology #DM type 2, hba1c 6.7 ISS, moderate #Hypernatremia mild monitor Renal #Hyperkalemia, resolved #BAO due to VMN resolved IV insulin and furosemide given GI tube feedings: resume feedings #Mild Hyperbillirubinemia #Constipation resolved lactulose due to constipation Hem/onc #Anemia, normochromic, normocytic: 9.3 #Thrombocytopenia: 252 monitor, transfusion of 2 apheresis of platelets previously Lines: PICC line right upper arm 05/01/25 intubation 04/23/25 extubated 05/01/25 reintubated 05/04/25 removed 05/13/25 kenney catheter 04/23/25 tracheostomy tube 05/13/[address] Corrales Full code Time spent on critical care 82 min excluding procedures and including discussion with family No anticoagulation, high risk of bleeding PUD prophylaxis: protonix IV Plan discussed with: Spouse, Daughter My Orders My Orders Orders - MIS REYEZ RESIDENT Procedure Category Date Status Time Vancomycin,Trough LAB 05/14/25 Verified 08:00 Abg W/ Co-Ox RT 05/13/25 Logged 07:00 Vancomycin Per AV 05/14/25 In Process Pharmacy Protoc 09:00 Creatinine LAB 05/14/25 Verified 04:00 Vancomycin PHA 05/13/25 In Process 750mg/150ml 21:00 Complete Blood Count LAB 05/14/25 Verified 04:00 Comprehensive LAB 05/14/25 Verified Metabolic Panel 04:00 Chest Xray 1 View XY 05/14/25 Logged 04:00 Abg W/ Co-Ox RT 05/14/25 Logged 04:00 PTPTT LAB 05/14/25 Verified 04:00 Dietary Evaluation Review Comments: Nutrition Recommendation: 1. TF Vital AF 1.2 Luis Enrique @ 60 ml/hr. start @ 20ml/hr, increase 10ml/hr Q4H until goal is reached. TF at goal volume provides 100% energy & protein needs - 1728 kcal, 108 gm protein, 1168 ml free water 2. Water flush 140ml Q6H if allowed 3. TPN if NPO> 7 days Expected Outcomes/Goals: To meet >75% estimated needs Fu 2-3 days Date of Service: May 13, 2025 Billing Provider: PAMELA CORRALES MD Common Visit Codes: 22431-SCQBSUCJ CARE 30-74 MIN, 60222-[id number] CARE-EACH +30MIN MIS REYEZ RESIDENT May 13, 2025 17:25 PAMELA CORRALES MD May 14, 2025 10:35
[2025-05-13] MEDS: VANCOMYCIN 750mg/150ml 150 ML IV SCH (20:33)
[2025-05-14] VITALS (101 sets, daily range): BP systolic 91–161; BP diastolic 31–62; PULSE 58–95; RESP 12–70; TEMP 98.6–100.9; O2SAT 98–100
[2025-05-14] MEDS: NOREPINEPHRINE 8 MG/250ML KIT 250 ML IV SCH (03:54)
[2025-05-14 04:08] LABS: Hematocrit 28.7 % (41.0-53.0); Hemoglobin 9.3 g/dL (13.5-17.5); Mean Corpuscular Hemoglobin 29.6 pg (28.0-32.0); Mean Corpuscular Volume 91.6 fL (80.0-100.0); Nucleated Red Blood Cells % 0.1 %
[2025-05-14 04:16] LABS: Alanine Aminotransferase 26 U/L (7-40); Alkaline Phosphatase 65 U/L (46-116); Anion Gap 6 (5-15); BUN/Creatinine Ratio 30.4 (10.0-20.0); Bilirubin, Total 0.7 mg/dL (0.2-1.0); Blood Urea Nitrogen 17 mg/dL (9-23); Carbon Dioxide 29 mmol/L (20-31); INR 1.04 (0.9-1.15); Partial Thromboplastin Time 29.9 SEC (24.5-34.5); Potassium 3.9 mmol/L (3.5-5.1); Prothrombin Time 11.0 sec (9.3-11.8)
[2025-05-14 04:23] LABS: Albumin 2.8 g/dL (3.2-4.8); Calcium 8.2 mg/dL (8.7-10.4); Chloride 111 mmol/L (98-107); Glucose 129 mg/dL (74-106); Sodium 146 mmol/L (136-145); Total Protein 5.1 g/dL (5.7-8.2)
--- NOTE | 2025-05-14 05:39 | DVH ---
CHEST RADIOGRAPH Indication: on vent Technique: Single frontal view of the chest was obtained Comparison: XY CHEST PORTABLE on DOS: 05/13/25 FINDINGS: Lines and Tubes: Right PICC terminates in the superior vena cava. Enteric tube terminates in the sto mach. Tracheostomy tube is unchanged. Lungs: Hazy bilateral opacities. Pleura: No effusion. No pneumothorax. Cardiomediastinal contours: Unremarkable Bones: No acute osseous abnormality. IMPRESSION: 1. Hazy bilateral opacities reflecting edema or pneumonia.
[2025-05-14 06:21] LABS: Base Excess -0.3 mmol/L (-2.0-3.0)
--- NOTE | 2025-05-14 09:25 | DVHPN2 ---
Progress Note Date Seen: May 14, 2025 Has the PT tested + for MRSA If YES, has PT been informed?: No Medical Necessity Reason Pt with a Central, PICC or Fol: Yes The following are medically ne: PICC Line, Kenney Catheter Reason for kenney catheter: Strict I&O Objective vital signs Vital Sign Date Time Temp Pulse Resp B/P (MAP) Pulse Ox O2 Delivery O2 Flow Rate FiO2 05/14/25 09:00 98.6 59 15 115/43 (67) 100 209.5 05/14/25 08:00 30 05/14/25 08:00 Mechanical Ventilator+ Total Intake and Output 05/13/25 05/13/25 05/14/25 15:00 23:00 07:00 Intake Total 379.503 ml 552.0 ml 869.689 ml Output Total 900 ml 1000 ml Balance 379.503 ml -348.0 ml -130.311 ml medications Current Medications Medications Dose Ordered Sig/Jose Alfredo Route Start Time Stop Time Status Last Admin Dose Admin Acetaminophen 650 mg Q6HP PRN PO 04/23/25 05:00 05/14/25 03:38 650 MG Propofol 100 ml @ 2.268 mls/ hr Q24H IV 04/23/25 20:45 05/01/25 04:51 2.268 MLS/HR Fentanyl Citrate 250 ml @ 2.5 mls/hr Q24H IV 04/23/25 20:45 05/14/25 00:52 17.5 MLS/HR Midazolam HCl 50 ml @ 1 mls/hr Q24H IV 04/23/25 23:15 05/14/25 04:41 6 MLS/HR Pantoprazole Sodium 40 mg DAILY IV 04/28/25 10:00 05/13/25 09:02 40 MG Lactulose 30 ml BID PO 04/28/25 10:00 05/13/25 20:19 30 ML Sodium Chloride 10 ml QSHIFT@10,22 IV 05/01/25 10:00 05/13/25 20:18 10 ML Enteral Nutritional Formula 1,000 ml 60ML/HR GT 05/05/25 16:45 05/12/25 20:38 1,000 ML Vancomycin HCl 0 ml @ 0 mls/hr UD IV 05/06/25 18:15 Atropine Sulfate 1 mg UD PRN IV 05/07/25 02:00 Dopamine HCl/ Dextrose 250 ml @ 4.59 mls/hr Q24H IV 05/07/25 16:15 05/10/25 06:24 4.59 MLS/HR Dextrose 50 ml UD PRN IV 05/07/25 18:00 Insulin Human Regular ACHS SC 05/08/25 17:00 05/14/25 05:23 2 UNITS Diagnostic Test (Pha) 1 strip ACHS 05/08/25 17:00 05/14/25 05:15 1 STRIP Furosemide 20 mg DAILY IV 05/10/25 10:00 05/13/25 09:02 20 MG Meropenem 50 ml @ 17 mls/hr Q8H IV 05/12/25 23:00 05/14/25 05:15 17 MLS/HR Vancomycin HCl 150 ml @ 100 mls/hr Q12H IV 05/13/25 21:00 05/13/25 20:33 100 MLS/HR Norepinephrine Bitartrate 250 ml @ 0.938 mls/ hr Q24H IV 05/14/25 03:45 05/14/25 03:54 0.938 MLS/HR laboratory and microbiology Laboratory Tests 05/14/25 03:40 Test 05/14/25 03:40 Range/Units Serum Glucose 129 H 74-106 mg/dL Problem List/Assessment/Plan Problem List/Assessment/Plan 05/14/25 tracheostomy site clean and without bleeding, no problems reported with tracheostomy, cxr reviewed, tracheostomy above kate, no pneumothorax, will sign off, please recall if needed Plan discussed with: Spouse, Other Dietary Evaluation Review Comments: Nutrition Recommendation: 1. TF Vital AF 1.2 Luis Enrique @ 60 ml/hr. start @ 20ml/hr, increase 10ml/hr Q4H until goal is reached. TF at goal volume provides 100% energy & protein needs - 1728 kcal, 108 gm protein, 1168 ml free water 2. Water flush 140ml Q6H if allowed 3. TPN if NPO> 7 days Expected Outcomes/Goals: To meet >75% estimated needs Fu 2-3 days VANESA LEONARD MD May 14, 2025 09:25
--- NOTE | 2025-05-14 13:53 | DVHPNRES ---
Progress Note Date Seen: May 14, 2025 Resident Creating Document: MIS REYEZ RESIDENT Has the PT tested + for MRSA If YES, has PT been informed?: No Medical Necessity Reason Pt with a Central, PICC or Fol: Yes The following are medically ne: PICC Line, Kenney Catheter Reason for kenney catheter: Strict I&O Subjective Review of Systems Mr. Farley is a 79-year-old male who presents with a chief complaint of bilateral leg swelling. He reports a chronic history of leg swelling, previously managed with a medication obtained from [place], the name of which he cannot recall. He admits to not taking this medication for some time. The patient is a poor historian but endorses a past medical history of diabetes mellitus (DM), hypertension (HTN), and an unspecified "heart issue." He denies any recent chest pain, shortness of breath, or dizziness. On triage, his blood pressure was markedly elevated at 180/116 mmHg with a pulse of 140 bpm. Given his history and current presentation, differential diagnoses include fluid retention possibly due to cardiac or renal insufficiency, medication noncompliance, electrolyte imbalance, and other systemic causes. Past Medical History diabetes mellitus (DM), hypertension (HTN), and an unspecified "heart issue." Past Surgical History none Family History: None (Noncontributory) Smoke: No ALCOHOL: none Drugs: None Lives: with Family Domestic Violence: Neg 04/23/25: patient was found with high oxygen requirements, respiratory acidosis, BIPAP was placed, POCUS at bedside possible reduced ejection fraction and hypokinesis, patient is having acute respiratory failure due to acute exacerbation of heart failure and COPD, antibiotics and solumedrol were started, mild hypokalemia was resolved with IV insulin 10 ui and furosemide, patient still has HR above 130, carvedilol is added, patient is MARIELENA status 04/24/25: during the night of 04/23/25, patient started to be more hypercapnic and drowsy, not responding to BIPAP, so talking with bhavani family the decision was to intubate, also patient started to be hypotensive with the need of vasopressors, central line was attempted to be placed on right yugular vein but the catheter is found to be entering through the brachiocephalic (innominate) artery with its tip residing in the Aortic arch, AngioCT scan STAT confirmed the findings, general surgery was consulted who advice endovascular stent placement to span the defect in the artery by means of transfemoral arteriography done by Interventional Radiologist, the removal of the catheter was done successfully by Dr José ARZOLA (formal radiological report pending) , right now we are going to f/u hb and bed rest, family was informed about the interventions, consent forms were signed, at the moment on fentanyl and versed drip, levophed 7 mcg, ABG after procedure ph 7.47 pco2 38 po2 69.6 hco3 27.8 ,continue monitor 04/27/25: During the weekend, no bleeding from the puncture site, patient is being on afib, levophed was wean off and phenylephrine was started, also digoxin was on, low dose heparin was started due to high chadvasc. Also sedation vacation was done, but today at 4 am patient started to be agitated. His platelets are 129. Cardiology today, they changed digoxin to amiodarone. Anticoagulation was DC, he will benefit for cath due to EF 25% , possible on sunday, Lipid panel normal. 04/28/25: amiodarone dc by cardiology, off pressors, thoracentesis done, 1.3 LT drained, klebsiella positive in sputum, [facility] tomorrow 04/29/25: off pressors, HR in the 70s, patient was slightly agitated, sedation was increased, vanco dc, [facility] with normal coronaries 04/30/25: off pressors, patient will benefit from cpap trial, precedex am, dc TLC, PICC line consult, cardiology started jardiance and metoprolol 05/01/25: PICC line placed at 7 am, on precedex infusion cpap started at 12: 30 pm ABG: PaFiO2 271, patient had an episode of agitation HR went up to 170s, afib with RVR, amiodarone drip was ordered, but after the agitation episode resolves, HR went down, right now patient is calm, extubated at 2 pm. 05/02/25: extubated, repleted K, agitated, adding Seroquel. pending bedside swallow, off pressors 05/03/25: bruise on neck expanding, hb drop. sending for CT, start oral feeding, holding lasix for now, increasing GDMT. avoid CCB. CT showed active bleeding, decision to transfer [facility] for CT/vasc. ss consult placed. trend HH. patient was intubated for airway protection 05/04/25: patient was seen by IR, neck angiogram done with active bleeding stopped. pressor low dose likely sedation related. c/w to trend h/h. plt >100, given vit k. 05/05/25: extend discussion with the family today and Dr Kumar IR: positive pressure of the ventilator is helping to control the bleeding, we are going to wait until hematoma is decreasing to do another intervention, possibility of tracheostomy and stent placement were discussed with the family, risk of stroke were discussed, if hb and platelets are stable and if is not active bleeding expectant management will be done, there is not expansible hematoma, pseudomonas is growing in new sputum culture, still sensible to zosyn, we are going to restart the feedings, amiodarone once daily, no anticoagulation, levophed 2 mcg 05/06/25: his HR has been into the 40s, possible sick sinus syndrome, amiodarone DC, dopamine fixed dose started, levophed titrate down, T max 100, vancomycin will be started, free water started due to hypernatremia, the ecchymosis is migrating to the lower body, his hb is stable, extensive discussion with the family about the plan, 05/07/25: HB 9,.9 plt 98, hematoma at the neck looks bigger, STAT angioct scan was done: showing Large heterogeneous hematoma is seen in the right lower neck which measures 9.9 x 5.9 cm and No evidence of acute arterial extravasation or injury. platelets were given. Case discussed with Dr Fernandez, who stated no need of stent at the moment Na 151 d5w 50cc/h, vancomycin was added 05/08/25: hb 10 plat 109 --> 98, new apheresis of platelets given, Na 145, dc d5w, HR is trending slowly higher, we are going to continue dopamine fixed dose, but the risk of going back to afib exist, levophed 1 mcg, IR, Dr Fernandez, came at bedside, explained to the family that in case of active bleeding stent will be placed and the risk of adverse events is about 15-20% (stroke, stent thrombosis), also the possibility of tracheostomy is on the table if hematoma is not subsiding. Bag of 5 pounds is on the hematoma to help with resorption 05/09-initially here for pneumonia. Central line was tried for Levophed which was inadvertently inserted into brachiocephalic CBC, which led to bleed evaluated by IR concluded as controlled bleed likely hematoma. Area is marked there is some mild increase in ecchymosis on right neck but not significant from marked area. Fecal not repeat imaging today. Also having thrombocytopenia stable today at 1:10 a.m.. We will transfuse if platelets below 100. We will continue primary team's plan no sedation vacations/CPAP trial over the weekend. Patient bradycardic currently on Levophed 0.5 dopamine drip to. Other drips include Versed, fentanyl, antibiotics Zosyn. Patient getting enteral feeds OG tube with free water flushes. Ventilated a.c. 16/450/30%/8.0. Breath sounds bilateral, bradycardic on exam, no edema, pulses present, hematoma right shoulder acknowledged. We will continue to monitor. 05/10/25---right shoulder hematoma/ecchymosis again a little increased in size but hemoglobin stable, platelets stable hemodynamics stable. We will defer imaging to tomorrow to primary. Vitals stable heart rate over 60. Labs more than 70,. Pulmonology wanted to try to wean, we will communicate to nurse to inform pulmonology primary team advised against weaning trials over the weekend. Drips include Versed 5, fentanyl 175, dopa to.. Vent a.c. 16/4 50/30%/8.0. Bowel movements 3 overnight, urine output adequate. We will continue primary team's management. 05/11/25: off dopamine, HR 70s, BPs elevated, hb is trending down, platelets normal, extensive discussion with the family held about the need of tracheostomy, surgery consult placed for tracheostomy, stop jardiance, free water, continue furosemide 20 mg daily 05/12/25: off pressors, HR control, hb is trending down, platelets trending high, dr Dorsey stated tracheostomy tomorrow, due to persistent fevers, dc zosyn, add meropenem, new cultures ordered, extensive discussion with family about the need of tracheostomy 05/13/25: tracheostomy was done: The hematoma was entered and retracted laterally. There was some aspiration of old blood with no evidence of ongoing hemorrhage. A size 8 cuffed non-fenestrated tracheostomy tube was placed, patient came back to the unit stable 05/14/25: we are going to start reduce sedation, ct scan of neck and chest showed Right neck/scapular region hyperdense collection / lesion measuring 10.5 x 5.6 cm, similar to previous examination, likely corresponding to the provided history of hematoma. No definitive arterial extravasation seen. Moderate left and small right pleural effusions with compressive atelectasis, hb and platelets are trending high, patient is having fevers, we are going to continue high spectrum antibiotics, tracheostomy on place functioning properly Objective vital signs Vital Sign Date Time Temp Pulse Resp B/P (MAP) Pulse Ox O2 Delivery O2 Flow Rate FiO2 05/14/25 13:15 98.8 62 16 115/45 (68) 100 209.8 05/14/25 12:00 Mechanical Ventilator+ 30 30 Total Intake and Output 05/13/25 05/13/25 05/14/25 15:00 23:00 07:00 Intake Total 379.503 ml 552.0 ml 869.689 ml Output Total 900 ml 1000 ml Balance 379.503 ml -348.0 ml -130.311 ml medications Current Medications Medications Dose Ordered Sig/Jose Alfredo Route Start Time Stop Time Status Last Admin Dose Admin Acetaminophen 650 mg Q6HP PRN PO 04/23/25 05:00 05/14/25 03:38 650 MG Propofol 100 ml @ 2.268 mls/ hr Q24H IV 04/23/25 20:45 05/01/25 04:51 2.268 MLS/HR Fentanyl Citrate 250 ml @ 2.5 mls/hr Q24H IV 04/23/25 20:45 05/14/25 00:52 17.5 MLS/HR Midazolam HCl 50 ml @ 1 mls/hr Q24H IV 04/23/25 23:15 05/14/25 04:41 6 MLS/HR Pantoprazole Sodium 40 mg DAILY IV 04/28/25 10:00 05/14/25 09:44 40 MG Lactulose 30 ml BID PO 04/28/25 10:00 05/14/25 09:46 30 ML Sodium Chloride 10 ml QSHIFT@10,22 IV 05/01/25 10:00 05/14/25 09:45 10 ML Enteral Nutritional Formula 1,000 ml 60ML/HR GT 05/05/25 16:45 05/12/25 20:38 1,000 ML Vancomycin HCl 0 ml @ 0 mls/hr UD IV 05/06/25 18:15 Atropine Sulfate 1 mg UD PRN IV 05/07/25 02:00 Dopamine HCl/ Dextrose 250 ml @ 4.59 mls/hr Q24H IV 05/07/25 16:15 05/10/25 06:24 4.59 MLS/HR Dextrose 50 ml UD PRN IV 05/07/25 18:00 Insulin Human Regular ACHS SC 05/08/25 17:00 05/14/25 11:38 2 UNITS Diagnostic Test (Pha) 1 strip ACHS 05/08/25 17:00 05/14/25 11:37 1 STRIP Furosemide 20 mg DAILY IV 05/10/25 10:00 05/14/25 09:45 20 MG Meropenem 50 ml @ 17 mls/hr Q8H IV 05/12/25 23:00 05/14/25 05:15 17 MLS/HR Norepinephrine Bitartrate 250 ml @ 0.938 mls/ hr Q24H IV 05/14/25 03:45 05/14/25 03:54 0.938 MLS/HR Vancomycin HCl 150 ml @ 100 mls/hr Q12H IV 05/14/25 21:00 UNV Examination General Appearance: TV 450 RR 16 FIO2 30 PEEP 5 HEENT: Atraumatic, PERRLA, EOMI, Mucous membr. moist/pink, the hematoma looks stable but appears to be undergoing resorption, is migrated along the subcutaneous to the back and flanks, tracheostomy functioning Respiratory: Bilateral basal crackles Cardiovascular: rhythmic HR 60-70 Abdominal: Normal bowel sounds, Soft, No tenderness, No hepatospenomegaly, No masses Extremities: PICC line right arm Skin: No rashes, No breakdown, No significant lesion laboratory and microbiology Laboratory Tests 05/14/25 03:40 Test 05/14/25 03:40 Range/Units Serum Glucose 129 H 74-106 mg/dL Microbiology Date/Time Source Procedure Growth Status 05/12/25 18:10 Sputum Gram Stain - Final Resulted 05/12/25 18:10 Sputum Respiratory Culture - Preliminary Resulted 05/12/25 12:44 Voided Urine Urine Culture - Final Complete 05/12/25 11:12 Blood Blood Culture - Preliminary NO GROWTH AFTER 48 HOURS OF INCUBATION. Resulted 05/03/25 20:20 Trachea Gram Stain - Final Complete 05/03/25 20:20 Respiratory Culture - Final Pseudomonas aeruginosa Complete 04/28/25 12:55 Pleural Fluid Gram Stain - Final Complete 04/28/25 12:55 Pleural Fluid Aerobic Culture - Final Complete Problem List/Assessment/Plan Problem List/Assessment/Plan Neurologic #Acute metabolic encephalopathy due to hypercapnic respiratory failure sedation: fentanyl and midazolam: reduce versed Cardiovascular #Acute exacerbation of heart failure with possible reduced ejection fraction #Septic shock ECHO EF 25%: severe dilated cavities, LHC no significant CAD Cardiology on board dc jardiance 10 mg levophed low dose off dopamine #New onset atrial flutter 2-1 AV conduction with RVR resolved #Possible sick sinus syndrome #Hypertensive emergency resolved #Hypertensive heart disease with systolic failure #sp CVC removal from right brachiocephalic/subclavian artery #neck hematoma #Moderate left and small right pleural effusions with compressive atelectasis hb stable, patient is having a bruise, migrating to the back, no expansive hematoma at the moment 05/05/25: extend discussion with the family today and Dr Kumar IR: positive pressure of the ventilator is helping to control the bleeding, we are going to wait until hematoma is decreasing to do another intervention, possibility of tracheostomy and stent placement were discussed with the family, risk of stroke were discussed, if hb and platelets are stable and if is not active bleeding, expectant management will be carried, there is not expansible hematoma, pseudomonas is growing in new sputum culture, still sensible to zosyn, we are going to restart the feedings, amiodarone once daily, no anticoagulation, levophed 2 mcg 05/06/25: his HR has been into the 40s, possible sick sinus syndrome, amiodarone DC, dopamine fixed dose started, levophed titrate down, T max 100, vancomycin will be started, free water started due to hypernatremia, the ecchymosis is migrating to the lower body, his hb is stable, extensive discussion with the family about the plan 05/07/25: HB 9,.9 plt 98, hematoma at the neck looks bigger, STAT angioct scan was done: showing Large heterogeneous hematoma is seen in the right lower neck which measures 9.9 x 5.9 cm and No evidence of acute arterial extravasation or injury. platelets were given. Case discussed with Dr Fernandez, who stated no need of stent at the moment Na 151 d5w 50cc/h, vancomycin was added 05/11/25: off dopamine, HR 70s, BPs elevated, hb is trending down, platelets normal, extensive discussion with the family held about the need of tracheostomy, surgery consult placed for tracheostomy, stop jardiance, free water, continue furosemide 20 mg daily 05/12/25: off pressors, HR control, hb is trending down, platelets trending high, dr Dorsey stated tracheostomy tomorrow, due to persistent fevers, dc zosyn, add meropenem, new cultures ordered, extensive discussion with family about the need of tracheostomy 05/13/25: tracheostomy was done: The hematoma was entered and retracted laterally. There was some aspiration of old blood with no evidence of ongoing hemorrhage. A size 8 cuffed non-fenestrated tracheostomy tube was placed, patient came back to the unit stable, low dose levophed 05/14/25: we are going to start reduce sedation, ct scan of neck and chest showed Right neck/scapular region hyperdense collection / lesion measuring 10.5 x 5.6 cm, similar to previous examination, likely corresponding to the provided history of hematoma. No definitive arterial extravasation seen. Respiratory #Septic shock #Acute respiratory failure due to COPD exacerbation and heart failure #s/p mechanical ventilation #Respiratory alkalosis #Bilateral pleural effusions L>R at admission: likely parapneumonic Thoracentesis done 1.3 LT drained: exudate #pneumonia gram+/ gram - due to klebsiella pneumoniae and pseudomonas aeruginosa #Severe respiratory acidosis resolved TV 450 RR 16 FIO2 30 PEEP 5 meropenem and vancomycin #SP tracheostomy 05/13/25 05/14/25 Moderate left and small right pleural effusions with compressive atelectasis, hb and platelets are trending high, patient is having fevers, we are going to continue high spectrum antibiotics, tracheostomy on place functioning properly Endocrinology #DM type 2, hba1c 6.7 ISS, moderate #Hypernatremia mild monitor Renal #Hyperkalemia, resolved #BAO due to VMN resolved IV insulin and furosemide given GI tube feedings: resume feedings #Mild Hyperbillirubinemia #Constipation resolved lactulose due to constipation Hem/onc #Anemia, normochromic, normocytic: 9.5 #Thrombocytopenia: 308 monitor, transfusion of 2 apheresis of platelets previously Lines: PICC line right upper arm 05/01/25 intubation 04/23/25 extubated 05/01/25 reintubated 05/04/25 removed 05/13/25 kenney catheter 04/23/25 tracheostomy tube 05/13/[address] Corrales Full code Time spent on critical care 83 min excluding procedures and including discussion with family No anticoagulation, high risk of bleeding PUD prophylaxis: protonix IV Plan discussed with: Spouse, Daughter My Orders My Orders Orders - MIS REYEZ RESIDENT Procedure Category Date Status Time Chest Xray 1 View XY 05/14/25 Resulted 04:00 Abg W/ Co-Ox RT 05/14/25 Logged 04:00 Norepinephrine 8 PHA 05/14/25 In Process Mg/250ml Kit 03:45 Vancomycin PHA 05/14/25 Logged 750mg/150ml 21:00 Creatinine LAB 05/15/25 Verified 04:00 Vancomycin,Trough LAB 05/15/25 Verified 20:00 Vancomycin Per AV 05/14/25 In Process Pharmacy Protoc 21:00 Dietary Evaluation Review Comments: Nutrition Recommendation: 1. TF Vital AF 1.2 Luis Enrique @ 60 ml/hr. start @ 20ml/hr, increase 10ml/hr Q4H until goal is reached. TF at goal volume provides 100% energy & protein needs - 1728 kcal, 108 gm protein, 1168 ml free water 2. Water flush 140ml Q6H if allowed 3. TPN if NPO> 7 days Expected Outcomes/Goals: To meet >75% estimated needs Fu 2-3 days Date of Service: May 14, 2025 Billing Provider: PAMELA CORRALES MD Common Visit Codes: 95073-AAGILZEC CARE 30-74 MIN, 44270-ARBJHANQ CARE-EACH +30MIN MIS REYEZ RESIDENT May 14, 2025 13:53 PAMELA CORRALES MD May 16, 2025 10:59
[2025-05-14] MEDS: IOHEXOL 350 MG/ML 100ML IJ ONE (16:05)
--- NOTE | 2025-05-14 18:15 | DVH ---
EXAM: CT CHEST WITH CONTRAST History: PNEUMONIA Comparison Study: US CHEST ULTRASOUND on DOS: 04/27/25 TECHNIQUE: A digital finishing tunnel operator image was obtained. During the uneventful, intravenous administration of c ontrast material, multislice data acquisition was obtained through the chest. The data set was subseq uently reconstructed into axial, coronal, and sagittal images. Radiation Dose : CTDI vol 22.88 mGy, DLP 1477.34 mGy*cm. Findings: Lungs: The lungs are clear. Pleura: Moderate left and small right pleural effusions with compressive atelectasis. Heart/Great vessels: No cardiomegaly or pericardial effusion. Mediastinum: Slightly prominent mediastinal nodes. Soft tissues/Bones: Mild to moderate multilevel degenerative changes of the thoracic spine. Partially visualized 10.4 x 4.9 cm right supraclavicular soft tissue hematoma. Extends posteriorly to the leve l of the trapezius. Enteric tube terminates in the stomach. The partially visualized upper abdomen is within normal limit s. Impression: 1. Moderate left and small right pleural effusions with compressive atelectasis. 2. Partially visualized 10.4 x 4.9 cm right supraclavicular soft tissue hematoma.
--- NOTE | 2025-05-14 18:38 | DVH ---
EXAM: CT CT ANGIO NECK CONTRAST DATE OF SERVICE: 05/14/2025 04:11 PM ORDERING PHYSICIAN: MIS MERLOS REASON FOR EXAM: RIGHT NECK HEMATOMA TECHNIQUE: CTA of the neck was performed after the administration of contrast . Axial images of the neck are obtained. Coronal and sagittal images were then reformatted for review. MIP reformats were o btained and reviewed. COMPARISON: CT CT ANGIO NECK CONTRAST on DOS: 05/07/25, FINDINGS: FINDINGS: The right common carotid artery demonstrates no high-grade stenosis. Mild calcification of the right carotid bulb. Right internal carotid artery demonstrates no high-grade stenosis. The left common carotid artery demonstrates no high-grade stenosis. [id number] calcification of the left carotid bulb. Left internal carotid artery demonstrates mild, less than 50% stenosis of the left internal carotid a rtery proximally. The right vertebral artery demonstrates no high-grade stenosis. The left vertebral artery demonstrates no high-grade stenosis. Bilateral pleural effusions. Right paratracheal lymph nodes measuring up to 1.5 cm. There is right neck /scapular region hyperdense collection/ lesion measuring 10.5 x 5.6 cm grossly un changed from the previous examination. No definitive evidence for arterial extravasation seen. Bilateral maxillary sinus disease. Tracheostomy tube. Nasogastric tube. Extensive mucous / heterogene ous density within the pharyngeal, laryngeal region limiting evaluation. Moderate cervical degenerati ve disc disease. IMPRESSION: No large vessel high-grade stenosis. Right neck/scapular region hyperdense collection / lesion measuring 10.5 x 5.6 cm, similar to previou s examination, likely corresponding to the provided history of hematoma. No definitive arterial extra vasation seen.12
[2025-05-14] MEDS ORDERED: VANCOMYCIN 750mg/150ml 150 ML IV SCH (21:00)
[2025-05-14] MEDS: MEROPENEM 1GM IVPB 50 ML IV SCH (21:55)
[2025-05-15] VITALS (107 sets, daily range): BP systolic 81–181; BP diastolic 38–97; PULSE 56–94; RESP 10–31; TEMP 98.1–100; O2SAT 92–100
[2025-05-15 03:24] LABS: Hematocrit 29.0 % (41.0-53.0); Hemoglobin 9.5 g/dL (13.5-17.5); Mean Corpuscular Hemoglobin 29.8 pg (28.0-32.0); Mean Corpuscular Volume 91.6 fL (80.0-100.0); Nucleated Red Blood Cells % 0.2 %
[2025-05-15 03:34] LABS: Alanine Aminotransferase 23 U/L (7-40); Alkaline Phosphatase 67 U/L (46-116); Anion Gap 6 (5-15); BUN/Creatinine Ratio 29.1 (10.0-20.0); Blood Urea Nitrogen 16 mg/dL (9-23); Carbon Dioxide 28 mmol/L (20-31); Magnesium 1.9 mg/dL (1.6-2.6); Potassium 3.9 mmol/L (3.5-5.1)
[2025-05-15 03:35] LABS: Bilirubin, Total 0.7 mg/dL (0.2-1.0)
[2025-05-15 04:07] LABS: Albumin 2.7 g/dL (3.2-4.8); Calcium 7.6 mg/dL (8.7-10.4); Chloride 111 mmol/L (98-107); Glucose 155 mg/dL (74-106); Sodium 145 mmol/L (136-145); Total Protein 5.0 g/dL (5.7-8.2)
--- NOTE | 2025-05-15 05:27 | DVH ---
CHEST RADIOGRAPH Indication: pneumonia Technique: Single frontal view of the chest was obtained COMPARISON: XY CHEST XRAY 1 VIEW on DOS: 05/14/25, XY CHEST PORTABLE on DOS: 05/13/25, XY CHEST XRAY 1 VIEW on DOS: 05/13/25, XY CHEST XRAY 1 VIEW on DOS: 05/12/25, XY CHEST PORTABLE on DOS: 05/11/25 FINDINGS: Lines and Tubes: Tracheostomy and enteric catheter in satisfactory position. Right PICC in satisfact ory position. Lungs: Increased interstitial prominence Pleura: Small bilateral pleural effusions. No pneumothorax. Cardiomediastinal contours: Unremarkable Bones: Unremarkable IMPRESSION: Lines and tubes in satisfactory position. No significant interval change.
[2025-05-15 06:34] LABS: Base Excess -1.2 mmol/L (-2.0-3.0)
[2025-05-15] MEDS: VANCOMYCIN 750mg/150ml 150 ML IV SCH (08:46)
--- NOTE | 2025-05-15 09:27 | DVH ---
US CHEST ULTRASOUND, HISTORY: left pleural effusion, probable need of thoracentesis COMPARISON(S): None TECHNICAL DATA: Transverse and longitudinal images are obtained of the chest. FINDING: IMPRESSION(S): Trace right, moderate left pleural effusion.
[2025-05-15] MEDS: fentaNYL 25MCG/HR 25 MCG/HR PAT TD SCH (15:00)
[2025-05-15] MEDS ORDERED: ACETAMINOPHEN IV 1000 MG/100ML (10MG/ML) IV PRN (15:00)
--- NOTE | 2025-05-15 15:09 | DVHPNRES ---
Progress Note Date Seen: May 15, 2025 Resident Creating Document: MIS REYEZ RESIDENT Has the PT tested + for MRSA If YES, has PT been informed?: No Medical Necessity Reason Pt with a Central, PICC or Fol: Yes The following are medically ne: PICC Line, Kenney Catheter Reason for kenney catheter: Strict I&O Subjective Review of Systems Mr. Farley is a 79-year-old male who presents with a chief complaint of bilateral leg swelling. He reports a chronic history of leg swelling, previously managed with a medication obtained from [facility], the name of which he cannot recall. He admits to not taking this medication for some time. The patient is a poor historian but endorses a past medical history of diabetes mellitus (DM), hypertension (HTN), and an unspecified "heart issue." He denies any recent chest pain, shortness of breath, or dizziness. On triage, his blood pressure was markedly elevated at 180/116 mmHg with a pulse of 140 bpm. Given his history and current presentation, differential diagnoses include fluid retention possibly due to cardiac or renal insufficiency, medication noncompliance, electrolyte imbalance, and other systemic causes. Past Medical History diabetes mellitus (DM), hypertension (HTN), and an unspecified "heart issue." Past Surgical History none Family History: None (Noncontributory) Smoke: No ALCOHOL: none Drugs: None Lives: with Family Domestic Violence: Neg 04/23/25: patient was found with high oxygen requirements, respiratory acidosis, BIPAP was placed, POCUS at bedside possible reduced ejection fraction and hypokinesis, patient is having acute respiratory failure due to acute exacerbation of heart failure and COPD, antibiotics and solumedrol were started, mild hypokalemia was resolved with IV insulin 10 ui and furosemide, patient still has HR above 130, carvedilol is added, patient is MARIELENA status 04/24/25: during the night of 04/23/25, patient started to be more hypercapnic and drowsy, not responding to BIPAP, so talking with bhavani family the decision was to intubate, also patient started to be hypotensive with the need of vasopressors, central line was attempted to be placed on right yugular vein but the catheter is found to be entering through the brachiocephalic (innominate) artery with its tip residing in the Aortic arch, AngioCT scan STAT confirmed the findings, general surgery was consulted who advice endovascular stent placement to span the defect in the artery by means of transfemoral arteriography done by Interventional Radiologist, the removal of the catheter was done successfully by Dr José ARZOLA (formal radiological report pending) , right now we are going to f/u hb and bed rest, family was informed about the interventions, consent forms were signed, at the moment on fentanyl and versed drip, levophed 7 mcg, ABG after procedure ph 7.47 pco2 38 po2 69.6 hco3 27.8 ,continue monitor 04/27/25: During the weekend, no bleeding from the puncture site, patient is being on afib, levophed was wean off and phenylephrine was started, also digoxin was on, low dose heparin was started due to high chadvasc. Also sedation vacation was done, but today at 4 am patient started to be agitated. His platelets are 129. Cardiology today, they changed digoxin to amiodarone. Anticoagulation was DC, he will benefit for cath due to EF 25% , possible on sunday, Lipid panel normal. 04/28/25: amiodarone dc by cardiology, off pressors, thoracentesis done, 1.3 LT drained, klebsiella positive in sputum, [facility] tomorrow 04/29/25: off pressors, HR in the 70s, patient was slightly agitated, sedation was increased, vanco dc, [facility] with normal coronaries 04/30/25: off pressors, patient will benefit from cpap trial, precedex am, dc TLC, PICC line consult, cardiology started jardiance and metoprolol 05/01/25: PICC line placed at 7 am, on precedex infusion cpap started at 12: 30 pm ABG: PaFiO2 271, patient had an episode of agitation HR went up to 170s, afib with RVR, amiodarone drip was ordered, but after the agitation episode resolves, HR went down, right now patient is calm, extubated at 2 pm. 05/02/25: extubated, repleted K, agitated, adding Seroquel. pending bedside swallow, off pressors 05/03/25: bruise on neck expanding, hb drop. sending for CT, start oral feeding, holding lasix for now, increasing GDMT. avoid CCB. CT showed active bleeding, decision to transfer [facility] for CT/vasc. ss consult placed. trend HH. patient was intubated for airway protection 05/04/25: patient was seen by IR, neck angiogram done with active bleeding stopped. pressor low dose likely sedation related. c/w to trend h/h. plt >100, given vit k. 05/05/25: extend discussion with the family today and Dr Kumar IR: positive pressure of the ventilator is helping to control the bleeding, we are going to wait until hematoma is decreasing to do another intervention, possibility of tracheostomy and stent placement were discussed with the family, risk of stroke were discussed, if hb and platelets are stable and if is not active bleeding expectant management will be done, there is not expansible hematoma, pseudomonas is growing in new sputum culture, still sensible to zosyn, we are going to restart the feedings, amiodarone once daily, no anticoagulation, levophed 2 mcg 05/06/25: his HR has been into the 40s, possible sick sinus syndrome, amiodarone DC, dopamine fixed dose started, levophed titrate down, T max 100, vancomycin will be started, free water started due to hypernatremia, the ecchymosis is migrating to the lower body, his hb is stable, extensive discussion with the family about the plan, 05/07/25: HB 9,.9 plt 98, hematoma at the neck looks bigger, STAT angioct scan was done: showing Large heterogeneous hematoma is seen in the right lower neck which measures 9.9 x 5.9 cm and No evidence of acute arterial extravasation or injury. platelets were given. Case discussed with Dr Fernandez, who stated no need of stent at the moment Na 151 d5w 50cc/h, vancomycin was added 05/08/25: hb 10 plat 109 --> 98, new apheresis of platelets given, Na 145, dc d5w, HR is trending slowly higher, we are going to continue dopamine fixed dose, but the risk of going back to afib exist, levophed 1 mcg, IR, Dr Fernandez, came at bedside, explained to the family that in case of active bleeding stent will be placed and the risk of adverse events is about 15-20% (stroke, stent thrombosis), also the possibility of tracheostomy is on the table if hematoma is not subsiding. Bag of 5 pounds is on the hematoma to help with resorption 05/09-initially here for pneumonia. Central line was tried for Levophed which was inadvertently inserted into brachiocephalic CBC, which led to bleed evaluated by IR concluded as controlled bleed likely hematoma. Area is marked there is some mild increase in ecchymosis on right neck but not significant from marked area. Fecal not repeat imaging today. Also having thrombocytopenia stable today at 1:10 a.m.. We will transfuse if platelets below 100. We will continue primary team's plan no sedation vacations/CPAP trial over the weekend. Patient bradycardic currently on Levophed 0.5 dopamine drip to. Other drips include Versed, fentanyl, antibiotics Zosyn. Patient getting enteral feeds OG tube with free water flushes. Ventilated a.c. 16/450/30%/8.0. Breath sounds bilateral, bradycardic on exam, no edema, pulses present, hematoma right shoulder acknowledged. We will continue to monitor. 05/10/25---right shoulder hematoma/ecchymosis again a little increased in size but hemoglobin stable, platelets stable hemodynamics stable. We will defer imaging to tomorrow to primary. Vitals stable heart rate over 60. Labs more than 70,. Pulmonology wanted to try to wean, we will communicate to nurse to inform pulmonology primary team advised against weaning trials over the weekend. Drips include Versed 5, fentanyl 175, dopa to.. Vent a.c. 16/4 50/30%/8.0. Bowel movements 3 overnight, urine output adequate. We will continue primary team's management. 05/11/25: off dopamine, HR 70s, BPs elevated, hb is trending down, platelets normal, extensive discussion with the family held about the need of tracheostomy, surgery consult placed for tracheostomy, stop jardiance, free water, continue furosemide 20 mg daily 05/12/25: off pressors, HR control, hb is trending down, platelets trending high, dr Dorsey stated tracheostomy tomorrow, due to persistent fevers, dc zosyn, add meropenem, new cultures ordered, extensive discussion with family about the need of tracheostomy 05/13/25: tracheostomy was done: The hematoma was entered and retracted laterally. There was some aspiration of old blood with no evidence of ongoing hemorrhage. A size 8 cuffed non-fenestrated tracheostomy tube was placed, patient came back to the unit stable 05/14/25: we are going to start reduce sedation, ct scan of neck and chest showed Right neck/scapular region hyperdense collection / lesion measuring 10.5 x 5.6 cm, similar to previous examination, likely corresponding to the provided history of hematoma. No definitive arterial extravasation seen. Moderate left and small right pleural effusions with compressive atelectasis, hb and platelets are trending high, patient is having fevers, we are going to continue high spectrum antibiotics, tracheostomy on place functioning properly 05/15/25: patient is off versed, now on precedex, the idea is to continue decrease sedation, we are going to titrate down precedex drip, start fentanyl patch, tylenol IV and xanax, no need of thoracentesis for now, we are going to increase diuresis, klebsiella and pseudomona in sputum, sensible to meropenem, hb and platelets trending high Objective vital signs Vital Sign Date Time Temp Pulse Resp B/P (MAP) Pulse Ox O2 Delivery O2 Flow Rate FiO2 05/15/25 13:52 64 16 108/48 (68) 100 30 05/15/25 12:00 Mechanical Ventilator+ 05/15/25 12:00 99.1 210.4 Total Intake and Output 05/14/25 05/14/25 05/15/25 15:00 23:00 07:00 Intake Total 195.752 ml 777.5 ml 614.5 ml Output Total 1100 ml 800 ml Balance 195.752 ml -322.5 ml -185.5 ml medications Current Medications Medications Dose Ordered Sig/Jose Alfredo Route Start Time Stop Time Status Last Admin Dose Admin Propofol 100 ml @ 2.268 mls/ hr Q24H IV 04/23/25 20:45 05/01/25 04:51 2.268 MLS/HR Fentanyl Citrate 250 ml @ 2.5 mls/hr Q24H IV 04/23/25 20:45 05/15/25 12:27 15 MLS/HR Midazolam HCl 50 ml @ 1 mls/hr Q24H IV 04/23/25 23:15 05/14/25 23:18 1 MLS/HR Pantoprazole Sodium 40 mg DAILY IV 04/28/25 10:00 05/15/25 09:32 40 MG Lactulose 30 ml BID PO 04/28/25 10:00 05/14/25 21:55 30 ML Sodium Chloride 10 ml QSHIFT@10,22 IV 05/01/25 10:00 05/15/25 10:00 10 ML Enteral Nutritional Formula 1,000 ml 60ML/HR GT 05/05/25 16:45 05/12/25 20:38 1,000 ML Vancomycin HCl 0 ml @ 0 mls/hr UD IV 05/06/25 18:15 Atropine Sulfate 1 mg UD PRN IV 05/07/25 02:00 Dopamine HCl/ Dextrose 250 ml @ 4.59 mls/hr Q24H IV 05/07/25 16:15 05/10/25 06:24 4.59 MLS/HR Dextrose 50 ml UD PRN IV 05/07/25 18:00 Insulin Human Regular ACHS SC 05/08/25 17:00 05/15/25 11:18 3 UNITS Diagnostic Test (Pha) 1 strip ACHS 05/08/25 17:00 05/15/25 11:19 1 STRIP Norepinephrine Bitartrate 250 ml @ 0.938 mls/ hr Q24H IV 05/14/25 03:45 05/14/25 03:54 0.938 MLS/HR Vancomycin HCl 150 ml @ 100 mls/hr Q12H IV 05/14/25 21:00 UNV Meropenem 50 ml @ 17 mls/hr Q8HR IV 05/14/25 22:00 05/15/25 13:52 17 MLS/HR Vancomycin HCl 150 ml @ 100 mls/hr Q12H IV 05/15/25 09:00 05/15/25 08:46 100 MLS/HR Furosemide 40 mg DAILY IV 05/16/25 10:00 UNV Alprazolam 0.25 mg Q8HP PRN NG 05/15/25 14:45 UNV Fentanyl 25 mcg Q72H TD 05/15/25 15:00 UNV Acetaminophen 1,000 mg [id number] PRN IV 05/15/25 15:00 05/15/25 15:01 UNV Examination General Appearance: TV 450 RR 16 decrease to 14 FIO2 30 PEEP 5 HEENT: Atraumatic, PERRLA, EOMI, Mucous membr. moist/pink, the hematoma looks stable but appears to be undergoing resorption, is migrated along the subcutaneous to the back and flanks, tracheostomy functioning Respiratory: Bilateral basal crackles Cardiovascular: rhythmic HR 60-70 Abdominal: Normal bowel sounds, Soft, No tenderness, No hepatospenomegaly, No masses Extremities: PICC line right arm Skin: No rashes, No breakdown, No significant lesion laboratory and microbiology Laboratory Tests 05/15/25 02:30 Test 05/15/25 02:30 Range/Units Serum Glucose 155 H 74-106 mg/dL Microbiology Date/Time Source Procedure Growth Status 05/12/25 18:10 Sputum Gram Stain - Final Complete 05/12/25 18:10 Respiratory Culture - Final Klebsiella pneumoniae Pseudomonas aeruginosa Complete 05/12/25 12:44 Voided Urine Urine Culture - Final Complete 05/12/25 11:12 Blood Blood Culture - Preliminary NO GROWTH AFTER 72 HOURS OF INCUBATION. Resulted 05/03/25 20:20 Trachea Gram Stain - Final Complete 05/03/25 20:20 Respiratory Culture - Final Pseudomonas aeruginosa Complete 04/28/25 12:55 Pleural Fluid Gram Stain - Final Complete 04/28/25 12:55 Pleural Fluid Aerobic Culture - Final Complete Problem List/Assessment/Plan Problem List/Assessment/Plan Neurologic #Acute metabolic encephalopathy due to hypercapnic respiratory failure sedation: fentanyl and precedex, please titrate down precedex xanax po tylenol iv fentanyl patch Cardiovascular #Acute exacerbation of heart failure with possible reduced ejection fraction #Septic shock ECHO EF 25%: severe dilated cavities, LHC no significant CAD Cardiology on board dc jardiance 10 mg levophed off off dopamine furosemide 40 mg IV #New onset atrial flutter 2-1 AV conduction with RVR resolved #Possible sick sinus syndrome #Hypertensive emergency resolved #Hypertensive heart disease with systolic failure #sp CVC removal from right brachiocephalic/subclavian artery #neck hematoma #Moderate left and small right pleural effusions with compressive atelectasis hb stable, patient is having a bruise, migrating to the back, no expansive hematoma at the moment 05/05/25: extend discussion with the family today and Dr Kumar IR: positive pressure of the ventilator is helping to control the bleeding, we are going to wait until hematoma is decreasing to do another intervention, possibility of tracheostomy and stent placement were discussed with the family, risk of stroke were discussed, if hb and platelets are stable and if is not active bleeding, expectant management will be carried, there is not expansible hematoma, pseudomonas is growing in new sputum culture, still sensible to zosyn, we are going to restart the feedings, amiodarone once daily, no anticoagulation, levophed 2 mcg 05/06/25: his HR has been into the 40s, possible sick sinus syndrome, amiodarone DC, dopamine fixed dose started, levophed titrate down, T max 100, vancomycin will be started, free water started due to hypernatremia, the ecchymosis is migrating to the lower body, his hb is stable, extensive discussion with the family about the plan 05/07/25: HB 9,.9 plt 98, hematoma at the neck looks bigger, STAT angioct scan was done: showing Large heterogeneous hematoma is seen in the right lower neck which measures 9.9 x 5.9 cm and No evidence of acute arterial extravasation or injury. platelets were given. Case discussed with Dr Fernandez, who stated no need of stent at the moment Na 151 d5w 50cc/h, vancomycin was added 05/11/25: off dopamine, HR 70s, BPs elevated, hb is trending down, platelets normal, extensive discussion with the family held about the need of tracheostomy, surgery consult placed for tracheostomy, stop jardiance, free water, continue furosemide 20 mg daily 05/12/25: off pressors, HR control, hb is trending down, platelets trending high, dr Dorsey stated tracheostomy tomorrow, due to persistent fevers, dc zosyn, add meropenem, new cultures ordered, extensive discussion with family about the need of tracheostomy 05/13/25: tracheostomy was done: The hematoma was entered and retracted laterally. There was some aspiration of old blood with no evidence of ongoing hemorrhage. A size 8 cuffed non-fenestrated tracheostomy tube was placed, patient came back to the unit stable, low dose levophed 05/14/25: we are going to start reduce sedation, ct scan of neck and chest showed Right neck/scapular region hyperdense collection / lesion measuring 10.5 x 5.6 cm, similar to previous examination, likely corresponding to the provided history of hematoma. No definitive arterial extravasation seen. Respiratory #Septic shock #Acute respiratory failure due to COPD exacerbation and heart failure #s/p mechanical ventilation #Respiratory alkalosis #Bilateral pleural effusions L>R at admission: likely parapneumonic Thoracentesis done 1.3 LT drained: exudate #pneumonia gram+/ gram - due to klebsiella pneumoniae and pseudomonas aeruginosa #Severe respiratory acidosis resolved TV 450 RR 16 FIO2 30 PEEP 5 meropenem and vancomycin #SP tracheostomy 05/13/25 05/14/25 Moderate left and small right pleural effusions with compressive atelectasis, hb and platelets are trending high, patient is having fevers, we are going to continue high spectrum antibiotics, tracheostomy on place functioning properly 05/15/25: patient is off versed, now on precedex, the idea is to continue decrease sedation, we are going to titrate down precedex drip, start fentanyl patch, tylenol IV and xanax, no need of thoracentesis for now, we are going to increase diuresis, klebsiella and pseudomonas in sputum, sensible to meropenem, hb and platelets trending high Endocrinology #DM type 2, hba1c 6.7 ISS, moderate #Hypernatremia mild monitor Renal #Hyperkalemia, resolved #BAO due to VMN resolved IV insulin and furosemide given GI tube feedings: continue feedings #Mild Hyperbillirubinemia #Constipation resolved lactulose due to constipation Hem/onc #Anemia, normochromic, normocytic: 9.9 #Thrombocytopenia: 308 monitor, transfusion of 2 apheresis of platelets previously Lines: PICC line right upper arm 05/01/25 intubation 04/23/25 extubated 05/01/25 reintubated 05/04/25 removed 05/13/25 kenney catheter 04/23/25 tracheostomy tube 05/13/[address] Tenorio Full code Time spent on critical care 83 min excluding procedures and including discussion with family No anticoagulation, high risk of bleeding PUD prophylaxis: protonix IV Plan discussed with: Spouse, Daughter My Orders My Orders Orders - MIS REYEZ RESIDENT Procedure Category Date Status Time Meropenem 1gm Ivpb PHA 05/14/25 In Process (Merrem 1gm/ Ns) 22:00 Chest Xray 1 View XY 05/15/25 Resulted 04:00 Abg W/ Co-Ox RT 05/15/25 Logged 04:00 Vancomycin PHA 05/15/25 In Process 750mg/150ml 09:00 Chest Ultrasound US 05/15/25 Resulted 08:43 Furosemide Injection PHA 05/16/25 Logged (Lasix Injection) 10:00 Alprazolam Tablet PHA 05/15/25 Logged (Xanax Tablet) 14:45 Communication Order ORDERS 05/15/25 Transmitted 14:38 Fentanyl 25mcg/Hr PHA 05/15/25 Logged (Duragesic 25mcg/Hr) 15:00 Communication Order ORDERS 05/15/25 Transmitted 14:53 Acetaminophen Iv PHA 05/15/25 Logged (Ofirmev) 15:00 Ventilator Orders RT 05/15/25 Transmitted 14:57 Dietary Evaluation Review Comments: Nutrition Recommendation: 1. TF Vital AF 1.2 Luis Enrique @ 60 ml/hr. start @ 20ml/hr, increase 10ml/hr Q4H until goal is reached. TF at goal volume provides 100% energy & protein needs - 1728 kcal, 108 gm protein, 1168 ml free water 2. Water flush 140ml Q6H if allowed 3. TPN if NPO> 7 days Expected Outcomes/Goals: To meet >75% estimated needs Fu 2-3 days MIS REYEZ RESIDENT May 15, 2025 15:09
[2025-05-15] MEDS: ALPRAZolam 0.25 MG TAB NG PRN (15:58)
[2025-05-16] VITALS (116 sets, daily range): BP systolic 45–180; BP diastolic 36–93; PULSE 55–118; RESP 10–25; TEMP 98.4–99.5; O2SAT 97–100
[2025-05-16 03:34] LABS: Hematocrit 27.1 % (41.0-53.0); Hemoglobin 9.0 g/dL (13.5-17.5); Mean Corpuscular Hemoglobin 30.5 pg (28.0-32.0); Mean Corpuscular Volume 92.0 fL (80.0-100.0); Nucleated Red Blood Cells % 0.1 %
[2025-05-16 03:47] LABS: Alanine Aminotransferase 27 U/L (7-40); Alkaline Phosphatase 71 U/L (46-116); Anion Gap 8 (5-15); BUN/Creatinine Ratio 33.9 (10.0-20.0); Blood Urea Nitrogen 20 mg/dL (9-23); Carbon Dioxide 27 mmol/L (20-31); Magnesium 2.0 mg/dL (1.6-2.6)
[2025-05-16 03:49] LABS: Bilirubin, Total 0.9 mg/dL (0.2-1.0)
[2025-05-16 03:54] LABS: Albumin 2.9 g/dL (3.2-4.8); Calcium 8.4 mg/dL (8.7-10.4); Chloride 110 mmol/L (98-107); Glucose 138 mg/dL (74-106); Potassium 3.4 mmol/L (3.5-5.1); Sodium 145 mmol/L (136-145); Total Protein 5.4 g/dL (5.7-8.2)
[2025-05-16] MEDS: POTASSIUM CHL 20MEQ/100ML 100 ML IV ONE (04:45)
[2025-05-16 06:13] LABS: Base Excess 0.4 mmol/L (-2.0-3.0)
--- NOTE | 2025-05-16 06:22 | DVH ---
CHEST RADIOGRAPH Indication: pneumonia Technique: Single frontal view of the chest was obtained COMPARISON: XY CHEST XRAY 1 VIEW on DOS: 05/15/25, XY CHEST XRAY 1 VIEW on DOS: 05/14/25, XY CHEST PORT ABLE on DOS: 05/13/25, XY CHEST XRAY 1 VIEW on DOS: 05/13/25, XY CHEST XRAY 1 VIEW on DOS: 05/12/25 FINDINGS: The patient's arm and hand are obscuring the lower lung linares and inferior margin of the cardiac mayra houette. Lines and Tubes: Lines and tubes unchanged. Lungs: Grossly stable appearing bibasilar pulmonary airspace disease and bilateral pleural effusions. No pneumothorax. Cardiomediastinal contours: Unremarkable Bones: Unremarkable IMPRESSION: 1. Limited exams secondary to the patient's arm obscuring the lower lung zones and inferior cardiac m argin. 2. Grossly stable appearing bibasilar pulmonary airspace disease and bilateral pleural effusions. 3. Lines and tubes unchanged.
[2025-05-16] MEDS: FUROSEMIDE 20 MG/2 ML VIAL IV SCH (09:45)
--- NOTE | 2025-05-16 13:10 | DVHPN2 ---
Progress Note - Dictate Date Seen: May 16, 2025 Has the PT tested + for MRSA If YES, has PT been informed?: No Medical Necessity Reason Pt with a Central, PICC or Fol: Yes The following are medically ne: PICC Line, Kenney Catheter Reason for kenney catheter: Strict I&O vital signs Vital Sign Date Time Temp Pulse Resp B/P (MAP) Pulse Ox O2 Delivery O2 Flow Rate FiO2 05/16/25 13:01 99.0 76 15 126/51 (76) 99 210.2 05/16/25 12:00 30 05/16/25 12:00 Mechanical Ventilator+ Total Intake and Output 05/15/25 05/15/25 05/16/25 15:00 23:00 07:00 Intake Total 333.140 ml 671.690 ml 608.5 ml Output Total 1000 ml 500 ml Balance 333.140 ml -328.310 ml 108.5 ml medications Current Medications Medications Dose Ordered Sig/Jose Alfredo Route Start Time Stop Time Status Last Admin Dose Admin Propofol 100 ml @ 2.268 mls/ hr Q24H IV 04/23/25 20:45 05/01/25 04:51 2.268 MLS/HR Fentanyl Citrate 250 ml @ 2.5 mls/hr Q24H IV 04/23/25 20:45 05/16/25 03:33 17.5 MLS/HR Midazolam HCl 50 ml @ 1 mls/hr Q24H IV 04/23/25 23:15 05/16/25 09:46 7 MLS/HR Pantoprazole Sodium 40 mg DAILY IV 04/28/25 10:00 05/16/25 09:44 40 MG Lactulose 30 ml BID PO 04/28/25 10:00 05/16/25 09:45 30 ML Sodium Chloride 10 ml QSHIFT@10,22 IV 05/01/25 10:00 05/16/25 09:45 10 ML Enteral Nutritional Formula 1,000 ml 60ML/HR GT 05/05/25 16:45 05/12/25 20:38 1,000 ML Vancomycin HCl 0 ml @ 0 mls/hr UD IV 05/06/25 18:15 Atropine Sulfate 1 mg UD PRN IV 05/07/25 02:00 Dopamine HCl/ Dextrose 250 ml @ 4.59 mls/hr Q24H IV 05/07/25 16:15 05/10/25 06:24 4.59 MLS/HR Dextrose 50 ml UD PRN IV 05/07/25 18:00 Insulin Human Regular ACHS SC 05/08/25 17:00 05/15/25 22:35 2 UNITS Diagnostic Test (Pha) 1 strip ACHS 05/08/25 17:00 05/16/25 11:31 1 STRIP Norepinephrine Bitartrate 250 ml @ 0.938 mls/ hr Q24H IV 05/14/25 03:45 05/16/25 00:20 0.938 MLS/HR Vancomycin HCl 150 ml @ 100 mls/hr Q12H IV 05/14/25 21:00 UNV Meropenem 50 ml @ 17 mls/hr Q8HR IV 05/14/25 22:00 05/16/25 05:45 17 MLS/HR Vancomycin HCl 150 ml @ 100 mls/hr Q12H IV 05/15/25 09:00 05/15/25 21:03 100 MLS/HR Furosemide 40 mg DAILY IV 05/16/25 10:00 05/16/25 09:45 40 MG Alprazolam 0.25 mg Q8HP PRN NG 05/15/25 14:45 05/15/25 15:58 0.25 MG Fentanyl 25 mcg Q72H TD 05/15/25 15:00 Quetiapine Fumarate 25 mg BID PO 05/16/25 10:00 05/16/25 09:45 25 MG laboratory and microbiology Laboratory Tests 05/16/25 02:40 Test 05/16/25 02:40 Range/Units Serum Glucose 138 H 74-106 mg/dL Assessment/Plan Treatment Supervisor rounds Impression Acute hypoxemic respiratory failure Large neck hematoma Pleural effusions Septic shock Patient seen and examined in ICU Events On mechanical ventilation S/p tracheostomy PEEP 5, FiO2 30% Labs and imaging reviewed ABG reviewed Management Vent support Titrate to maintain sats 90% or above Trache care per RT protocols Continue antibiotics F/u cultures Bronchodilators Monitor renal function Monitor electrolytes Supplement as needed Continue diuresis Pressors as needed for hemodynamic support To maintain a mean arterial pressure of 65 mmHg Will proceed to bronchoscopy for airway management Mechanical DVT prophylaxis Critical care time 35 minutes Dietary Evaluation Review Comments: Nutrition Recommendation: 1. TF Vital AF 1.2 Luis Enrique @ 60 ml/hr. start @ 20ml/hr, increase 10ml/hr Q4H until goal is reached. TF at goal volume provides 100% energy & protein needs - 1728 kcal, 108 gm protein, 1168 ml free water 2. Water flush 140ml Q6H if allowed 3. TPN if NPO> 7 days Expected Outcomes/Goals: To meet >75% estimated needs Fu 2-3 days Plan discussed with: Other (Rn) VIRGINIA CREWS MD May 16, 2025 13:10
--- NOTE | 2025-05-16 13:40 | DVHPN2 ---
Subjective The patient is seen and examined at bedside. Remained intubated. Blood pressure still low today. On vasopressor. Reviewed: H&P Changes from previous H/P or p: No Changes General: Per HPI Eyes: No Pain, No Vision change, No Conjunctivae inflammation, No Eyelid inflammation, No Other, No Redness ENT: No Ear pain, No Ear discharge, No Nose pain, No Nose discharge, No Nose congestion, No Mouth pain, No Mouth swelling, No Throat pain, No Throat swelling, No Other Cardiovascular: No Chest Pain; Palpitations, Paroxysmal Noc. Dyspnea, Edema; No Lt Headedness, No Other Respiratory: Cough, Dry, Shortness of breath, SOB with excertion Gastrointestinal: No Nausea, No Vomiting, No Abdominal Pain, No Diarrhea, No Constipation, No Melena, No Hematochezia, No Other Genitourinary: No Dysuria, No Frequency, No Incontinence, No Hematuria, No Retention, No Other Musculoskeletal: other (Bilateral leg swelling); No neck pain, No shoulder pain, No arm pain, No back pain, No hand pain, No leg pain, No foot pain Skin: No Rash, No Lesions, No Jaundice, No Bruising, No Other Objective Vitals Vital Signs Date Time Temp Pulse Resp B/P (MAP) Pulse Ox O2 Delivery O2 Flow Rate FiO2 05/16/25 13:15 99.1 76 14 121/54 (76) 100 210.4 05/16/25 12:00 30 05/16/25 12:00 Mechanical Ventilator+ Intake/Output Intake and Output 05/16/25 07:00 Intake Total 1613.330 ml Output Total 1500 ml Balance 113.330 ml Intake Oral 70 ml IV Total 548.330 ml Tube Feeding 995 ml Output Urine Total 1500 ml General Appearance: Other (Intubated, on vent, unable to exam) HEENT: Atraumatic, Mucous membr. moist/pink, Other (ETT tube intact) Neck: Supple Lungs: Clear to auscultation, Normal air movement Cardiovascular: Regular rate, Normal S1, Normal S2, No murmurs, Gallops, Rubs Abdomen: Normal bowel sounds, Soft Extremities: Normal pulses Medications Current Medications Medications Dose Ordered Sig/Jose Alfredo Route Start Time Stop Time Status Last Admin Dose Admin Propofol 100 ml @ 2.268 mls/ hr Q24H IV 04/23/25 20:45 05/01/25 04:51 2.268 MLS/HR Fentanyl Citrate 250 ml @ 2.5 mls/hr Q24H IV 04/23/25 20:45 05/16/25 03:33 17.5 MLS/HR Midazolam HCl 50 ml @ 1 mls/hr Q24H IV 04/23/25 23:15 05/16/25 09:46 7 MLS/HR Pantoprazole Sodium 40 mg DAILY IV 04/28/25 10:00 05/16/25 09:44 40 MG Lactulose 30 ml BID PO 04/28/25 10:00 05/16/25 09:45 30 ML Sodium Chloride 10 ml QSHIFT@10,22 IV 05/01/25 10:00 05/16/25 09:45 10 ML Enteral Nutritional Formula 1,000 ml 60ML/HR GT 05/05/25 16:45 05/12/25 20:38 1,000 ML Vancomycin HCl 0 ml @ 0 mls/hr UD IV 05/06/25 18:15 Atropine Sulfate 1 mg UD PRN IV 05/07/25 02:00 Dopamine HCl/ Dextrose 250 ml @ 4.59 mls/hr Q24H IV 05/07/25 16:15 05/10/25 06:24 4.59 MLS/HR Dextrose 50 ml UD PRN IV 05/07/25 18:00 Insulin Human Regular ACHS SC 05/08/25 17:00 05/15/25 22:35 2 UNITS Diagnostic Test (Pha) 1 strip ACHS 05/08/25 17:00 05/16/25 11:31 1 STRIP Norepinephrine Bitartrate 250 ml @ 0.938 mls/ hr Q24H IV 05/14/25 03:45 05/16/25 00:20 0.938 MLS/HR Vancomycin HCl 150 ml @ 100 mls/hr Q12H IV 05/14/25 21:00 UNV Meropenem 50 ml @ 17 mls/hr Q8HR IV 05/14/25 22:00 05/16/25 05:45 17 MLS/HR Vancomycin HCl 150 ml @ 100 mls/hr Q12H IV 05/15/25 09:00 05/15/25 21:03 100 MLS/HR Furosemide 40 mg DAILY IV 05/16/25 10:00 05/16/25 09:45 40 MG Alprazolam 0.25 mg Q8HP PRN NG 05/15/25 14:45 05/15/25 15:58 0.25 MG Fentanyl 25 mcg Q72H TD 05/15/25 15:00 Quetiapine Fumarate 25 mg BID PO 05/16/25 10:00 05/16/25 09:45 25 MG Laboratory Results Laboratory Tests 05/16/25 02:40 Chemistry Test 05/16/25 02:40 Albumin 2.9 g/dL (3.2-4.8) L Calcium Level 8.4 mg/dL (8.7-10.4) L Magnesium Level 2.0 mg/dL (1.6-2.6) Total Protein 5.4 g/dL (5.7-8.2) L LFT Test 05/16/25 02:40 Alanine Aminotransferase (ALT) 27 U/L (7-40) Alkaline Phosphatase 71 U/L (46-116) Aspartate Amino Transferase (AST) 43 U/L (13-40) H Total Bilirubin 0.9 mg/dL (0.2-1.0) Urinalysis Test 04/23/25 19:00 Urine Color Light-yellow (Yellow) Urine Clarity Turbid (Clear) H Urine pH 5.0 (5.0-9.0) Urine Specific [place] 1.006 (1.001-1.035) Urine Protein Negative (Negative) Urine Ketones Negative (Negative) Urine Blood 2+ /uL (Negative) H Urine Nitrite Negative (Negative) Urine Bilirubin Negative (Negative) Urine Urobilinogen Normal mg/dL (Negative) Urine Leukocyte Esterase Negative /uL (Negative) Urine RBC 10 /hpf (0 - 3) Urine Microscopic WBC 1 /HPF (0-3) Urine Squamous Epithelial Cells Few /hpf (<5) Urine Bacteria Few /hpf (None Seen) H Urine Mucus Few (None Seen) Urine Glucose Normal mg/dL (Normal) Blood Gas Results Test 05/16/25 05:58 Arterial Blood pH 7.408 (7.350-7.450) FiO2 % 30.0 Microbiology Microbiology Date/Time Source Procedure Growth Status 05/12/25 18:10 Sputum Gram Stain - Final Complete 05/12/25 18:10 Respiratory Culture - Final Klebsiella pneumoniae Pseudomonas aeruginosa Complete 05/12/25 12:44 Voided Urine Urine Culture - Final Complete 05/12/25 11:12 Blood Blood Culture - Preliminary NO GROWTH AFTER 72 HOURS OF INCUBATION. Resulted 05/03/25 20:20 Trachea Gram Stain - Final Complete 05/03/25 20:20 Respiratory Culture - Final Pseudomonas aeruginosa Complete 04/28/25 12:55 Pleural Fluid Gram Stain - Final Complete 04/28/25 12:55 Pleural Fluid Aerobic Culture - Final Complete Labs and/or images reviewed: Labs reviewed by me Assessment/Plan Assessment/Plan Neurologic #Acute metabolic encephalopathy due to hypercapnic respiratory failure sedation: fentanyl and precedex, please titrate down precedex xanax po tylenol iv fentanyl patch Cardiovascular #Acute exacerbation of heart failure with possible reduced ejection fraction #Septic shock ECHO EF 25%: severe dilated cavities, LHC no significant CAD Cardiology on board dc jardiance 10 mg levophed off off dopamine furosemide 40 mg IV #New onset atrial flutter 2-1 AV conduction with RVR resolved #Possible sick sinus syndrome #Hypertensive emergency resolved #Hypertensive heart disease with systolic failure #sp CVC removal from right brachiocephalic/subclavian artery #neck hematoma #Moderate left and small right pleural effusions with compressive atelectasis hb stable, patient is having a bruise, migrating to the back, no expansive hematoma at the moment 05/05/25: extend discussion with the family today and Dr Kumar IR: positive pressure of the ventilator is helping to control the bleeding, we are going to wait until hematoma is decreasing to do another intervention, possibility of tracheostomy and stent placement were discussed with the family, risk of stroke were discussed, if hb and platelets are stable and if is not active bleeding, expectant management will be carried, there is not expansible hematoma, pseudomonas is growing in new sputum culture, still sensible to zosyn, we are going to restart the feedings, amiodarone once daily, no anticoagulation, levophed 2 mcg 05/06/25: his HR has been into the 40s, possible sick sinus syndrome, amiodarone DC, dopamine fixed dose started, levophed titrate down, T max 100, vancomycin will be started, free water started due to hypernatremia, the ecchymosis is migrating to the lower body, his hb is stable, extensive discussion with the family about the plan 05/07/25: HB 9,.9 plt 98, hematoma at the neck looks bigger, STAT angioct scan was done: showing Large heterogeneous hematoma is seen in the right lower neck which measures 9.9 x 5.9 cm and No evidence of acute arterial extravasation or injury. platelets were given. Case discussed with Dr Fernandez, who stated no need of stent at the moment Na 151 d5w 50cc/h, vancomycin was added 05/11/25: off dopamine, HR 70s, BPs elevated, hb is trending down, platelets normal, extensive discussion with the family held about the need of tracheostomy, surgery consult placed for tracheostomy, stop jardiance, free water, continue furosemide 20 mg daily 05/12/25: off pressors, HR control, hb is trending down, platelets trending high, dr Dorsey stated tracheostomy tomorrow, due to persistent fevers, dc zosyn, add meropenem, new cultures ordered, extensive discussion with family about the need of tracheostomy 05/13/25: tracheostomy was done: The hematoma was entered and retracted laterally. There was some aspiration of old blood with no evidence of ongoing hemorrhage. A size 8 cuffed non-fenestrated tracheostomy tube was placed, patient came back to the unit stable, low dose levophed 05/14/25: we are going to start reduce sedation, ct scan of neck and chest showed Right neck/scapular region hyperdense collection / lesion measuring 10.5 x 5.6 cm, similar to previous examination, likely corresponding to the provided history of hematoma. No definitive arterial extravasation seen. Respiratory #Septic shock #Acute respiratory failure due to COPD exacerbation and heart failure #s/p mechanical ventilation #Respiratory alkalosis #Bilateral pleural effusions L>R at admission: likely parapneumonic Thoracentesis done 1.3 LT drained: exudate #pneumonia gram+/ gram - due to klebsiella pneumoniae and pseudomonas aeruginosa #Severe respiratory acidosis resolved TV 450 RR 16 FIO2 30 PEEP 5 meropenem and vancomycin #SP tracheostomy 05/13/25 05/14/25 Moderate left and small right pleural effusions with compressive atelectasis, hb and platelets are trending high, patient is having fevers, we are going to continue high spectrum antibiotics, tracheostomy on place functioning properly 05/15/25: patient is off versed, now on precedex, the idea is to continue decrease sedation, we are going to titrate down precedex drip, start fentanyl patch, tylenol IV and xanax, no need of thoracentesis for now, we are going to increase diuresis, klebsiella and pseudomonas in sputum, sensible to meropenem, hb and platelets trending high 05/16/25: Continuing Precedex Endocrinology #DM type 2, hba1c 6.7 ISS, moderate #Hypernatremia mild monitor Renal #Hyperkalemia, resolved #BAO due to VMN resolved IV insulin and furosemide given GI tube feedings: continue feedings #Mild Hyperbillirubinemia #Constipation resolved lactulose due to constipation Hem/onc #Anemia, normochromic, normocytic: 9.9 #Thrombocytopenia: 308 monitor, transfusion of 2 apheresis of platelets previously Lines: PICC line right upper arm 05/01/25 intubation 04/23/25 extubated 05/01/25 reintubated 05/04/25 removed 05/13/25 kenney catheter 04/23/25 tracheostomy tube 05/13/25 Critical care spent for this case today is 38 minutes This medical document was created using an electronic medical record system with [employer] direct computerized dictation system. Although this document has been carefully reviewed, there may still be some phonetic and typographical errors. These areas are purely typographical due to imperfections of the software programs, and do not reflect any compromise in the patient's medical care. Plan discussed with: Spouse, Daughter, Other (Rn) Date of Service: May 16, 2025 Billing Provider: EL DUBOIS MD Common Visit Codes: [id number] CARE 30-74 MIN EL DUBOIS MD May 16, 2025 13:40
--- NOTE | 2025-05-16 14:29 | DVHNC2 ---
Procedure - Procedure- Bronchoscopy and bronchial washings Indication- Secretions Procedure in detail Consent was obtained and timeout performed per protocol. The patient was placed on 100% FiO2. Olympus bronchoscope was used and passed through the tracheostomy tube, tracheobronchial tree was examined. There were copious semipurulent secretions in the airways bilaterally that were loosened up with approximately 50 cc of normal saline and thoroughly suctioned into a separate specimen container. There were no endobronchial lesions however, mucosa appeared inflamed and easily friable. After the procedure, the scope was removed. Patient tolerated the procedure well. VIRGINIA CREWS MD May 16, 2025 14:29
[2025-05-17] VITALS (110 sets, daily range): BP systolic 67–170; BP diastolic 37–75; PULSE 57–101; RESP 8–18; TEMP 97.9–100.4; O2SAT 97–100
[2025-05-17 03:18] LABS: Hematocrit 28.5 % (41.0-53.0); Hemoglobin 9.3 g/dL (13.5-17.5); Mean Corpuscular Hemoglobin 29.9 pg (28.0-32.0); Mean Corpuscular Volume 91.9 fL (80.0-100.0); Nucleated Red Blood Cells % 0.2 %
[2025-05-17 03:35] LABS: Alanine Aminotransferase 28 U/L (7-40); Alkaline Phosphatase 74 U/L (46-116); Anion Gap 8 (5-15); BUN/Creatinine Ratio 35.2 (10.0-20.0); Blood Urea Nitrogen 19 mg/dL (9-23); Carbon Dioxide 29 mmol/L (20-31)
[2025-05-17 03:37] LABS: Bilirubin, Total 0.7 mg/dL (0.2-1.0)
[2025-05-17 03:39] LABS: Albumin 2.8 g/dL (3.2-4.8); Calcium 7.8 mg/dL (8.7-10.4); Chloride 110 mmol/L (98-107); Glucose 144 mg/dL (74-106); Potassium 3.4 mmol/L (3.5-5.1); Sodium 147 mmol/L (136-145); Total Protein 5.2 g/dL (5.7-8.2)
--- NOTE | 2025-05-17 05:55 | DVH ---
EXAM: XY CHEST PORTABLE Indication: Pain; PNA Technique: Single frontal view of the chest was obtained Comparison: XY CHEST XRAY 1 VIEW on DOS: 05/16/25, XY CHEST XRAY 1 VIEW on DOS: 05/15/25, XY CHEST XRAY 1 VIEW on DOS: 05/14/25, XY CHEST PORTABLE on DOS: 05/13/25, XY CHEST XRAY 1 VIEW on DOS: 05/13/25, XY CHEST XRAY 1 VIEW on DOS: 05/16/25 FINDINGS: Lines and Tubes: Lines and tubes unchanged. Lungs: Grossly stable appearing bibasilar pulmonary airspace disease and bilateral pleural effusions. No pneumothorax. Cardiomediastinal contours: Unremarkable Bones: Unremarkable IMPRESSION: No significant change compared to prior exam.
[2025-05-17] MEDS: POTASSIUM CHL 20MEQ/100ML 100 ML IV ONE (06:17)
[2025-05-17 06:28] LABS: Base Excess 2.4 mmol/L (-2.0-3.0)
[2025-05-17] MEDS: ACETAMINOPHEN 325 MG TAB PO PRN (09:07)
--- NOTE | 2025-05-17 13:33 | DVHPN2 ---
Progress Note - Dictate Date Seen: May 17, 2025 Has the PT tested + for MRSA If YES, has PT been informed?: No Medical Necessity Reason Pt with a Central, PICC or Fol: Yes The following are medically ne: PICC Line, Kenney Catheter Reason for kenney catheter: Strict I&O vital signs Vital Sign Date Time Temp Pulse Resp B/P (MAP) Pulse Ox O2 Delivery O2 Flow Rate FiO2 05/17/25 12:14 81 14 133/49 (77) 99 30 05/17/25 10:27 99.7 05/17/25 10:00 Mechanical Ventilator+ Total Intake and Output 05/16/25 05/16/25 05/17/25 15:00 23:00 07:00 Intake Total 227.313 ml 674.875 ml 890.315 ml Output Total 1650 ml 625 ml Balance 227.313 ml -975.125 ml 265.315 ml medications Current Medications Medications Dose Ordered Sig/Jose Alfredo Route Start Time Stop Time Status Last Admin Dose Admin Propofol 100 ml @ 2.268 mls/ hr Q24H IV 04/23/25 20:45 05/01/25 04:51 2.268 MLS/HR Fentanyl Citrate 250 ml @ 2.5 mls/hr Q24H IV 04/23/25 20:45 05/17/25 12:09 20 MLS/HR Midazolam HCl 50 ml @ 1 mls/hr Q24H IV 04/23/25 23:15 05/16/25 23:03 4 MLS/HR Pantoprazole Sodium 40 mg DAILY IV 04/28/25 10:00 05/17/25 09:30 40 MG Lactulose 30 ml BID PO 04/28/25 10:00 05/16/25 20:23 30 ML Sodium Chloride 10 ml QSHIFT@10,22 IV 05/01/25 10:00 05/17/25 09:31 10 ML Enteral Nutritional Formula 1,000 ml 60ML/HR GT 05/05/25 16:45 05/12/25 20:38 1,000 ML Vancomycin HCl 0 ml @ 0 mls/hr UD IV 05/06/25 18:15 Atropine Sulfate 1 mg UD PRN IV 05/07/25 02:00 Dopamine HCl/ Dextrose 250 ml @ 4.59 mls/hr Q24H IV 05/07/25 16:15 05/10/25 06:24 4.59 MLS/HR Dextrose 50 ml UD PRN IV 05/07/25 18:00 Insulin Human Regular ACHS SC 05/08/25 17:00 05/17/25 11:13 2 UNITS Diagnostic Test (Pha) 1 strip ACHS 05/08/25 17:00 05/17/25 11:00 1 STRIP Norepinephrine Bitartrate 250 ml @ 0.938 mls/ hr Q24H IV 05/14/25 03:45 05/16/25 00:20 0.938 MLS/HR Vancomycin HCl 150 ml @ 100 mls/hr Q12H IV 05/14/25 21:00 UNV Meropenem 50 ml @ 17 mls/hr Q8HR IV 05/14/25 22:00 05/17/25 06:06 17 MLS/HR Vancomycin HCl 150 ml @ 100 mls/hr Q12H IV 05/15/25 09:00 05/17/25 09:06 100 MLS/HR Furosemide 40 mg DAILY IV 05/16/25 10:00 05/17/25 09:30 40 MG Alprazolam 0.25 mg Q8HP PRN NG 05/15/25 14:45 05/15/25 15:58 0.25 MG Fentanyl 25 mcg Q72H TD 05/15/25 15:00 Quetiapine Fumarate 25 mg BID PO 05/16/25 10:00 05/17/25 09:30 25 MG Acetaminophen 650 mg Q6HP PRN PO 05/16/25 19:15 05/17/25 09:07 650 MG laboratory and microbiology Laboratory Tests 05/17/25 02:36 Test 05/17/25 02:36 Range/Units Serum Glucose 144 H 74-106 mg/dL 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 Impression Acute hypoxemic respiratory failure Large neck hematoma Pleural effusions Septic shock Patient seen and examined in ICU Events On mechanical ventilation S/p tracheostomy PEEP 5, FiO2 30% S/p bronchoscopy yesterday Labs and imaging reviewed ABG reviewed Management Vent support Titrate to maintain sats 90% or above Sedation holiday daily Trache care per RT protocols Continue antibiotics F/u cultures Bronchodilators Monitor renal function Monitor electrolytes Supplement as needed Continue diuresis Pressors as needed for hemodynamic support To maintain a mean arterial pressure of 65 mmHg Mechanical DVT prophylaxis Critical care time 35 minutes Dietary Evaluation Review Comments: Nutrition Recommendation: 1. TF Vital AF 1.2 Luis Enrique @ 60 ml/hr. start @ 20ml/hr, increase 10ml/hr Q4H until goal is reached. TF at goal volume provides 100% energy & protein needs - 1728 kcal, 108 gm protein, 1168 ml free water 2. Water flush 140ml Q6H if allowed 3. TPN if NPO> 7 days Expected Outcomes/Goals: To meet >75% estimated needs Fu 2-3 days Plan discussed with: Other (Rn) VIRGINIA CREWS MD May 17, 2025 13:33
--- NOTE | 2025-05-17 14:52 | DVHPN2 ---
Subjective The patient is seen and examined at bedside. No change overnight. Remained intubated. Reviewed: Care Plan, H&P Changes from previous H/P or p: No Changes General: Per HPI Eyes: No Pain, No Vision change, No Conjunctivae inflammation, No Eyelid inflammation, No Other, No Redness ENT: No Ear pain, No Ear discharge, No Nose pain, No Nose discharge, No Nose congestion, No Mouth pain, No Mouth swelling, No Throat pain, No Throat swelling, No Other Cardiovascular: No Chest Pain; Palpitations, Paroxysmal Noc. Dyspnea, Edema; No Lt Headedness, No Other Respiratory: Cough, Dry, Shortness of breath, SOB with excertion Gastrointestinal: No Nausea, No Vomiting, No Abdominal Pain, No Diarrhea, No Constipation, No Melena, No Hematochezia, No Other Genitourinary: No Dysuria, No Frequency, No Incontinence, No Hematuria, No Retention, No Other Musculoskeletal: other (Bilateral leg swelling); No neck pain, No shoulder pain, No arm pain, No back pain, No hand pain, No leg pain, No foot pain Skin: No Rash, No Lesions, No Jaundice, No Bruising, No Other Objective Vitals Vital Signs Date Time Temp Pulse Resp B/P (MAP) Pulse Ox O2 Delivery O2 Flow Rate FiO2 05/17/25 14:33 64 14 109/50 (69) 100 30 05/17/25 14:15 98.2 208.8 05/17/25 14:00 Mechanical Ventilator+ Intake/Output Intake and Output 05/17/25 07:00 Intake Total 1792.503 ml Output Total 2275 ml Balance -482.497 ml Intake Oral 230 ml IV Total 976.503 ml Tube Feeding 586 ml Output Urine Total 2275 ml # Bowel Movements 1 General Appearance: Other (Intubated, on vent, unable to exam) HEENT: Atraumatic, Mucous membr. moist/pink Lungs: Clear to auscultation Cardiovascular: Regular rate, Normal S1, Normal S2, No murmurs, Gallops, Rubs Abdomen: Normal bowel sounds, Soft Extremities: Normal pulses Medications Current Medications Medications Dose Ordered Sig/Jose Alfredo Route Start Time Stop Time Status Last Admin Dose Admin Propofol 100 ml @ 2.268 mls/ hr Q24H IV 04/23/25 20:45 05/01/25 04:51 2.268 MLS/HR Fentanyl Citrate 250 ml @ 2.5 mls/hr Q24H IV 04/23/25 20:45 05/17/25 12:09 20 MLS/HR Midazolam HCl 50 ml @ 1 mls/hr Q24H IV 04/23/25 23:15 05/16/25 23:03 4 MLS/HR Pantoprazole Sodium 40 mg DAILY IV 04/28/25 10:00 05/17/25 09:30 40 MG Lactulose 30 ml BID PO 04/28/25 10:00 05/16/25 20:23 30 ML Sodium Chloride 10 ml QSHIFT@10,22 IV 05/01/25 10:00 05/17/25 09:31 10 ML Enteral Nutritional Formula 1,000 ml 60ML/HR GT 05/05/25 16:45 05/12/25 20:38 1,000 ML Vancomycin HCl 0 ml @ 0 mls/hr UD IV 05/06/25 18:15 Atropine Sulfate 1 mg UD PRN IV 05/07/25 02:00 Dopamine HCl/ Dextrose 250 ml @ 4.59 mls/hr Q24H IV 05/07/25 16:15 05/10/25 06:24 4.59 MLS/HR Dextrose 50 ml UD PRN IV 05/07/25 18:00 Insulin Human Regular ACHS SC 05/08/25 17:00 05/17/25 11:13 2 UNITS Diagnostic Test (Pha) 1 strip ACHS 05/08/25 17:00 05/17/25 11:00 1 STRIP Norepinephrine Bitartrate 250 ml @ 0.938 mls/ hr Q24H IV 05/14/25 03:45 05/16/25 00:20 0.938 MLS/HR Vancomycin HCl 150 ml @ 100 mls/hr Q12H IV 05/14/25 21:00 UNV Meropenem 50 ml @ 17 mls/hr Q8HR IV 05/14/25 22:00 05/17/25 06:06 17 MLS/HR Vancomycin HCl 150 ml @ 100 mls/hr Q12H IV 05/15/25 09:00 05/17/25 09:06 100 MLS/HR Furosemide 40 mg DAILY IV 05/16/25 10:00 05/17/25 09:30 40 MG Alprazolam 0.25 mg Q8HP PRN NG 05/15/25 14:45 05/15/25 15:58 0.25 MG Fentanyl 25 mcg Q72H TD 05/15/25 15:00 Quetiapine Fumarate 25 mg BID PO 05/16/25 10:00 05/17/25 09:30 25 MG Acetaminophen 650 mg Q6HP PRN PO 05/16/25 19:15 05/17/25 09:07 650 MG Laboratory Results Laboratory Tests 05/17/25 02:36 Chemistry Test 05/17/25 02:36 Albumin 2.8 g/dL (3.2-4.8) L Calcium Level 7.8 mg/dL (8.7-10.4) L Total Protein 5.2 g/dL (5.7-8.2) L LFT Test 05/17/25 02:36 Alanine Aminotransferase (ALT) 28 U/L (7-40) Alkaline Phosphatase 74 U/L (46-116) Aspartate Amino Transferase (AST) 42 U/L (13-40) H Total Bilirubin 0.7 mg/dL (0.2-1.0) Urinalysis Test 04/23/25 19:00 Urine Color Light-yellow (Yellow) Urine Clarity Turbid (Clear) H Urine pH 5.0 (5.0-9.0) Urine Specific Cassel 1.006 (1.001-1.035) Urine Protein Negative (Negative) Urine Ketones Negative (Negative) Urine Blood 2+ /uL (Negative) H Urine Nitrite Negative (Negative) Urine Bilirubin Negative (Negative) Urine Urobilinogen Normal mg/dL (Negative) Urine Leukocyte Esterase Negative /uL (Negative) Urine RBC 10 /hpf (0 - 3) Urine Microscopic WBC 1 /HPF (0-3) Urine Squamous Epithelial Cells Few /hpf (<5) Urine Bacteria Few /hpf (None Seen) H Urine Mucus Few (None Seen) Urine Glucose Normal mg/dL (Normal) Blood Gas Results Test 05/17/25 06:14 Arterial Blood pH 7.397 (7.350-7.450) FiO2 % 30.0 Microbiology Microbiology Date/Time Source Procedure Growth Status 05/16/25 10:50 Bronchial Washings Gram Stain - Final Resulted 05/16/25 10:50 Bronchial Washings Respiratory Culture - Preliminary Resulted 05/12/25 12:44 Voided Urine Urine Culture - Final Complete 05/12/25 11:12 Blood Blood Culture - Final NO GROWTH AFTER 5 DAYS OF INCUBATION. Complete 05/03/25 20:20 Trachea Gram Stain - Final Complete 05/03/25 20:20 Respiratory Culture - Final Pseudomonas aeruginosa Complete 04/28/25 12:55 Pleural Fluid Gram Stain - Final Complete 04/28/25 12:55 Pleural Fluid Aerobic Culture - Final Complete Labs and/or images reviewed: Labs reviewed by me Assessment/Plan Assessment/Plan Neurologic #Acute metabolic encephalopathy due to hypercapnic respiratory failure sedation: fentanyl and precedex, please titrate down precedex xanax po tylenol iv fentanyl patch Cardiovascular #Acute exacerbation of heart failure with possible reduced ejection fraction #Septic shock ECHO EF 25%: severe dilated cavities, LHC no significant CAD Cardiology on board dc jardiance 10 mg levophed off off dopamine furosemide 40 mg IV #New onset atrial flutter 2-1 AV conduction with RVR resolved #Possible sick sinus syndrome #Hypertensive emergency resolved #Hypertensive heart disease with systolic failure #sp CVC removal from right brachiocephalic/subclavian artery #neck hematoma #Moderate left and small right pleural effusions with compressive atelectasis hb stable, patient is having a bruise, migrating to the back, no expansive hematoma at the moment 05/05/25: extend discussion with the family today and Dr Kumar IR: positive pressure of the ventilator is helping to control the bleeding, we are going to wait until hematoma is decreasing to do another intervention, possibility of tracheostomy and stent placement were discussed with the family, risk of stroke were discussed, if hb and platelets are stable and if is not active bleeding, expectant management will be carried, there is not expansible hematoma, pseudomonas is growing in new sputum culture, still sensible to zosyn, we are going to restart the feedings, amiodarone once daily, no anticoagulation, levophed 2 mcg 05/06/25: his HR has been into the 40s, possible sick sinus syndrome, amiodarone DC, dopamine fixed dose started, levophed titrate down, T max 100, vancomycin will be started, free water started due to hypernatremia, the ecchymosis is migrating to the lower body, his hb is stable, extensive discussion with the family about the plan 05/07/25: HB 9,.9 plt 98, hematoma at the neck looks bigger, STAT angioct scan was done: showing Large heterogeneous hematoma is seen in the right lower neck which measures 9.9 x 5.9 cm and No evidence of acute arterial extravasation or injury. platelets were given. Case discussed with Dr Fernandez, who stated no need of stent at the moment Na 151 d5w 50cc/h, vancomycin was added 05/11/25: off dopamine, HR 70s, BPs elevated, hb is trending down, platelets normal, extensive discussion with the family held about the need of tracheostomy, surgery consult placed for tracheostomy, stop jardiance, free water, continue furosemide 20 mg daily 05/12/25: off pressors, HR control, hb is trending down, platelets trending high, dr Dorsey stated tracheostomy tomorrow, due to persistent fevers, dc zosyn, add meropenem, new cultures ordered, extensive discussion with family about the need of tracheostomy 05/13/25: tracheostomy was done: The hematoma was entered and retracted laterally. There was some aspiration of old blood with no evidence of ongoing hemorrhage. A size 8 cuffed non-fenestrated tracheostomy tube was placed, patient came back to the unit stable, low dose levophed 05/14/25: we are going to start reduce sedation, ct scan of neck and chest showed Right neck/scapular region hyperdense collection / lesion measuring 10.5 x 5.6 cm, similar to previous examination, likely corresponding to the provided history of hematoma. No definitive arterial extravasation seen. Respiratory #Septic shock #Acute respiratory failure due to COPD exacerbation and heart failure #s/p mechanical ventilation #Respiratory alkalosis #Bilateral pleural effusions L>R at admission: likely parapneumonic Thoracentesis done 1.3 LT drained: exudate #pneumonia gram+/ gram - due to klebsiella pneumoniae and pseudomonas aeruginosa #Severe respiratory acidosis resolved TV 450 RR 16 FIO2 30 PEEP 5 meropenem and vancomycin #SP tracheostomy 05/13/25 05/14/25 Moderate left and small right pleural effusions with compressive atelectasis, hb and platelets are trending high, patient is having fevers, we are going to continue high spectrum antibiotics, tracheostomy on place functioning properly 05/15/25: patient is off versed, now on precedex, the idea is to continue decrease sedation, we are going to titrate down precedex drip, start fentanyl patch, tylenol IV and xanax, no need of thoracentesis for now, we are going to increase diuresis, klebsiella and pseudomonas in sputum, sensible to meropenem, hb and platelets trending high Endocrinology #DM type 2, hba1c 6.7 ISS, moderate #Hypernatremia mild monitor Renal #Hyperkalemia, resolved #BAO due to VMN resolved IV insulin and furosemide given GI tube feedings: continue feedings #Mild Hyperbillirubinemia #Constipation resolved lactulose due to constipation Hem/onc #Anemia, normochromic, normocytic: 9.9 #Thrombocytopenia: 308 monitor, transfusion of 2 apheresis of platelets previously Lines: PICC line right upper arm 05/01/25 intubation 04/23/25 extubated 05/01/25 reintubated 05/04/25 removed 05/13/25 kenney catheter 04/23/25 tracheostomy tube 05/13/25 Critical care spent for this case is 39 minute This medical document was created using an electronic medical record system with [employer] direct computerized dictation system. Although this document has been carefully reviewed, there may still be some phonetic and typographical errors. These areas are purely typographical due to imperfections of the software programs, and do not reflect any compromise in the patient's medical care. Plan discussed with: Spouse, Daughter, Other (RN) Date of Service: May 17, 2025 Billing Provider: EL DUBOIS MD Common Visit Codes: [id number] CARE 30-74 MIN EL DUBOIS MD May 17, 2025 14:52
[2025-05-18] VITALS (106 sets, daily range): BP systolic 121–171; BP diastolic 11–99; PULSE 8–93; RESP 10–27; TEMP 98.2–100.8; O2SAT 80–100
[2025-05-18 03:45] LABS: Hematocrit 27.9 % (41.0-53.0); Hemoglobin 9.2 g/dL (13.5-17.5); Mean Corpuscular Hemoglobin 30.3 pg (28.0-32.0); Mean Corpuscular Volume 92.0 fL (80.0-100.0); Nucleated Red Blood Cells % 0.1 %; Potassium 3.7 mmol/L (3.5-5.1)
[2025-05-18 03:46] LABS: Anion Gap 6 (5-15); Carbon Dioxide 29 mmol/L (20-31)
[2025-05-18 03:50] LABS: Calcium 7.9 mg/dL (8.7-10.4); Chloride 110 mmol/L (98-107); Sodium 145 mmol/L (136-145)
[2025-05-18 03:51] LABS: BUN/Creatinine Ratio 36.0 (10.0-20.0); Blood Urea Nitrogen 18 mg/dL (9-23)
[2025-05-18 04:36] LABS: Glucose 169 mg/dL (74-106)
--- NOTE | 2025-05-18 05:35 | DVH ---
CHEST RADIOGRAPH Indication: ET Tube Placement Confirmation Technique: Single frontal view of the chest was obtained COMPARISON: XY CHEST PORTABLE on DOS: 05/17/25, XY CHEST XRAY 1 VIEW on DOS: 05/16/25, XY CHEST XRAY 1 VIEW on DOS: 05/15/25, XY CHEST XRAY 1 VIEW on DOS: 05/14/25, XY CHEST PORTABLE on DOS: 05/13/25 FINDINGS: Lines and Tubes: Unchanged. Lungs: Stable appearing bibasilar pulmonary airspace disease and bilateral pleural effusions. No pneumothorax. Cardiomediastinal contours: Cardiomegaly. Bones: Unremarkable IMPRESSION: 1. Stable bibasilar pulmonary airspace disease and bilateral pleural effusions. 2. Cardiomegaly. 3. Lines and tubes unchanged.
[2025-05-18 06:43] LABS: Base Excess 3.2 mmol/L (-2.0-3.0)
[2025-05-18 11:19] LABS: Base Excess 3.3 mmol/L (-2.0-3.0)
[2025-05-18] MEDS ORDERED: HYDROcodone-ACET 5/325MG TAB PO PRN (18:00)
--- NOTE | 2025-05-18 18:27 | DVHPNRES ---
Progress Note Date Seen: May 18, 2025 Resident Creating Document: MIS REYEZ RESIDENT Has the PT tested + for MRSA If YES, has PT been informed?: No Medical Necessity Reason Pt with a Central, PICC or Fol: Yes The following are medically ne: PICC Line, Kenney Catheter Reason for kenney catheter: Strict I&O Subjective Review of Systems Mr. Farley is a 79-year-old male who presents with a chief complaint of bilateral leg swelling. He reports a chronic history of leg swelling, previously managed with a medication obtained from [place], the name of which he cannot recall. He admits to not taking this medication for some time. The patient is a poor historian but endorses a past medical history of diabetes mellitus (DM), hypertension (HTN), and an unspecified "heart issue." He denies any recent chest pain, shortness of breath, or dizziness. On triage, his blood pressure was markedly elevated at 180/116 mmHg with a pulse of 140 bpm. Given his history and current presentation, differential diagnoses include fluid retention possibly due to cardiac or renal insufficiency, medication noncompliance, electrolyte imbalance, and other systemic causes. Past Medical History diabetes mellitus (DM), hypertension (HTN), and an unspecified "heart issue." Past Surgical History none Family History: None (Noncontributory) Smoke: No ALCOHOL: none Drugs: None Lives: with Family Domestic Violence: Neg 04/23/25: patient was found with high oxygen requirements, respiratory acidosis, BIPAP was placed, POCUS at bedside possible reduced ejection fraction and hypokinesis, patient is having acute respiratory failure due to acute exacerbation of heart failure and COPD, antibiotics and solumedrol were started, mild hypokalemia was resolved with IV insulin 10 ui and furosemide, patient still has HR above 130, carvedilol is added, patient is MARIELENA status 04/24/25: during the night of 04/23/25, patient started to be more hypercapnic and drowsy, not responding to BIPAP, so talking with bhavani family the decision was to intubate, also patient started to be hypotensive with the need of vasopressors, central line was attempted to be placed on right yugular vein but the catheter is found to be entering through the brachiocephalic (innominate) artery with its tip residing in the Aortic arch, AngioCT scan STAT confirmed the findings, general surgery was consulted who advice endovascular stent placement to span the defect in the artery by means of transfemoral arteriography done by Interventional Radiologist, the removal of the catheter was done successfully by Dr José ARZOLA (formal radiological report pending) , right now we are going to f/u hb and bed rest, family was informed about the interventions, consent forms were signed, at the moment on fentanyl and versed drip, levophed 7 mcg, ABG after procedure ph 7.47 pco2 38 po2 69.6 hco3 27.8 ,continue monitor 04/27/25: During the weekend, no bleeding from the puncture site, patient is being on afib, levophed was wean off and phenylephrine was started, also digoxin was on, low dose heparin was started due to high chadvasc. Also sedation vacation was done, but today at 4 am patient started to be agitated. His platelets are 129. Cardiology today, they changed digoxin to amiodarone. Anticoagulation was DC, he will benefit for cath due to EF 25% , possible on sunday, Lipid panel normal. 04/28/25: amiodarone dc by cardiology, off pressors, thoracentesis done, 1.3 LT drained, klebsiella positive in sputum, [facility] tomorrow 04/29/25: off pressors, HR in the 70s, patient was slightly agitated, sedation was increased, vanco dc, [facility] with normal coronaries 04/30/25: off pressors, patient will benefit from cpap trial, precedex am, dc TLC, PICC line consult, cardiology started jardiance and metoprolol 05/01/25: PICC line placed at 7 am, on precedex infusion cpap started at 12: 30 pm ABG: PaFiO2 271, patient had an episode of agitation HR went up to 170s, afib with RVR, amiodarone drip was ordered, but after the agitation episode resolves, HR went down, right now patient is calm, extubated at 2 pm. 05/02/25: extubated, repleted K, agitated, adding Seroquel. pending bedside swallow, off pressors 05/03/25: bruise on neck expanding, hb drop. sending for CT, start oral feeding, holding lasix for now, increasing GDMT. avoid CCB. CT showed active bleeding, decision to transfer [facility] for CT/vasc. ss consult placed. trend HH. patient was intubated for airway protection 05/04/25: patient was seen by IR, neck angiogram done with active bleeding stopped. pressor low dose likely sedation related. c/w to trend h/h. plt >100, given vit k. 05/05/25: extend discussion with the family today and Dr Kumar IR: positive pressure of the ventilator is helping to control the bleeding, we are going to wait until hematoma is decreasing to do another intervention, possibility of tracheostomy and stent placement were discussed with the family, risk of stroke were discussed, if hb and platelets are stable and if is not active bleeding expectant management will be done, there is not expansible hematoma, pseudomonas is growing in new sputum culture, still sensible to zosyn, we are going to restart the feedings, amiodarone once daily, no anticoagulation, levophed 2 mcg 05/06/25: his HR has been into the 40s, possible sick sinus syndrome, amiodarone DC, dopamine fixed dose started, levophed titrate down, T max 100, vancomycin will be started, free water started due to hypernatremia, the ecchymosis is migrating to the lower body, his hb is stable, extensive discussion with the family about the plan, 05/07/25: HB 9,.9 plt 98, hematoma at the neck looks bigger, STAT angioct scan was done: showing Large heterogeneous hematoma is seen in the right lower neck which measures 9.9 x 5.9 cm and No evidence of acute arterial extravasation or injury. platelets were given. Case discussed with Dr Fernandez, who stated no need of stent at the moment Na 151 d5w 50cc/h, vancomycin was added 05/08/25: hb 10 plat 109 --> 98, new apheresis of platelets given, Na 145, dc d5w, HR is trending slowly higher, we are going to continue dopamine fixed dose, but the risk of going back to afib exist, levophed 1 mcg, IR, Dr Fernandez, came at bedside, explained to the family that in case of active bleeding stent will be placed and the risk of adverse events is about 15-20% (stroke, stent thrombosis), also the possibility of tracheostomy is on the table if hematoma is not subsiding. Bag of 5 pounds is on the hematoma to help with resorption 05/09-initially here for pneumonia. Central line was tried for Levophed which was inadvertently inserted into brachiocephalic CBC, which led to bleed evaluated by IR concluded as controlled bleed likely hematoma. Area is marked there is some mild increase in ecchymosis on right neck but not significant from marked area. Fecal not repeat imaging today. Also having thrombocytopenia stable today at 1:10 a.m.. We will transfuse if platelets below 100. We will continue primary team's plan no sedation vacations/CPAP trial over the weekend. Patient bradycardic currently on Levophed 0.5 dopamine drip to. Other drips include Versed, fentanyl, antibiotics Zosyn. Patient getting enteral feeds OG tube with free water flushes. Ventilated a.c. 16/450/30%/8.0. Breath sounds bilateral, bradycardic on exam, no edema, pulses present, hematoma right shoulder acknowledged. We will continue to monitor. 05/10/25---right shoulder hematoma/ecchymosis again a little increased in size but hemoglobin stable, platelets stable hemodynamics stable. We will defer imaging to tomorrow to primary. Vitals stable heart rate over 60. Labs more than 70,. Pulmonology wanted to try to wean, we will communicate to nurse to inform pulmonology primary team advised against weaning trials over the weekend. Drips include Versed 5, fentanyl 175, dopa to.. Vent a.c. 16/4 50/30%/8.0. Bowel movements 3 overnight, urine output adequate. We will continue primary team's management. 05/11/25: off dopamine, HR 70s, BPs elevated, hb is trending down, platelets normal, extensive discussion with the family held about the need of tracheostomy, surgery consult placed for tracheostomy, stop jardiance, free water, continue furosemide 20 mg daily 05/12/25: off pressors, HR control, hb is trending down, platelets trending high, dr Dorsey stated tracheostomy tomorrow, due to persistent fevers, dc zosyn, add meropenem, new cultures ordered, extensive discussion with family about the need of tracheostomy 05/13/25: tracheostomy was done: The hematoma was entered and retracted laterally. There was some aspiration of old blood with no evidence of ongoing hemorrhage. A size 8 cuffed non-fenestrated tracheostomy tube was placed, patient came back to the unit stable 05/14/25: we are going to start reduce sedation, ct scan of neck and chest showed Right neck/scapular region hyperdense collection / lesion measuring 10.5 x 5.6 cm, similar to previous examination, likely corresponding to the provided history of hematoma. No definitive arterial extravasation seen. Moderate left and small right pleural effusions with compressive atelectasis, hb and platelets are trending high, patient is having fevers, we are going to continue high spectrum antibiotics, tracheostomy on place functioning properly 05/15/25: patient is off versed, now on precedex, the idea is to continue decrease sedation, we are going to titrate down precedex drip, start fentanyl patch, tylenol IV and xanax, no need of thoracentesis for now, we are going to increase diuresis, klebsiella and pseudomona in sputum, sensible to meropenem, hb and platelets trending high 05/18/25: during the weekend, patient had a bronchoscopy There were copious semipurulent secretions in the airways bilaterally that were loosened up with approximately 50 cc of normal saline and thoroughly suctioned into a separate specimen container. There were no endobronchial lesions however, mucosa appeared inflamed and easily friable, patient is on min sedation with precedex, cpap trial attempt and later trach collar for 6 min, later the patient was placed again on mechanical ventilation due to agitation and deconditioning, trach collar trial tomorrow again, hb and platelets stable Objective vital signs Vital Sign Date Time Temp Pulse Resp B/P (MAP) Pulse Ox O2 Delivery O2 Flow Rate FiO2 05/18/25 18:15 78 21 149/99 (116) 100 05/18/25 18:03 30 05/18/25 18:03 Mechanical Ventilator+ 05/18/25 17:15 100.6 213.1 Total Intake and Output 05/17/25 05/17/25 05/18/25 15:00 23:00 07:00 Intake Total 348.697 ml 821.653 ml 679.171 ml Output Total 1000 ml 650 ml Balance 348.697 ml -178.347 ml 29.171 ml medications Current Medications Medications Dose Ordered Sig/Jose Alfredo Route Start Time Stop Time Status Last Admin Dose Admin Propofol 100 ml @ 2.268 mls/ hr Q24H IV 04/23/25 20:45 05/01/25 04:51 2.268 MLS/HR Fentanyl Citrate 250 ml @ 2.5 mls/hr Q24H IV 04/23/25 20:45 05/17/25 12:09 20 MLS/HR Midazolam HCl 50 ml @ 1 mls/hr Q24H IV 04/23/25 23:15 05/16/25 23:03 4 MLS/HR Pantoprazole Sodium 40 mg DAILY IV 04/28/25 10:00 05/18/25 09:50 40 MG Lactulose 30 ml BID PO 04/28/25 10:00 05/16/25 20:23 30 ML Sodium Chloride 10 ml QSHIFT@ IV 05/01/25 10:00 05/18/25 09:53 10 ML Enteral Nutritional Formula 1,000 ml 60ML/HR GT 05/05/25 16:45 05/17/25 22:13 1,000 ML Vancomycin HCl 0 ml @ 0 mls/hr UD IV 05/06/25 18:15 Atropine Sulfate 1 mg UD PRN IV 05/07/25 02:00 Dopamine HCl/ Dextrose 250 ml @ 4.59 mls/hr Q24H IV 05/07/25 16:15 05/10/25 06:24 4.59 MLS/HR Dextrose 50 ml UD PRN IV 05/07/25 18:00 Insulin Human Regular ACHS SC 05/08/25 17:00 05/18/25 11:37 2 UNITS Diagnostic Test (Pha) 1 strip ACHS 05/08/25 17:00 05/18/25 17:35 1 STRIP Norepinephrine Bitartrate 250 ml @ 0.938 mls/ hr Q24H IV 05/14/25 03:45 05/16/25 00:20 0.938 MLS/HR Vancomycin HCl 150 ml @ 100 mls/hr Q12H IV 05/14/25 21:00 UNV Meropenem 50 ml @ 17 mls/hr Q8HR IV 05/14/25 22:00 05/18/25 14:00 17 MLS/HR Vancomycin HCl 150 ml @ 100 mls/hr Q12H IV 05/15/25 09:00 05/18/25 09:50 100 MLS/HR Furosemide 40 mg DAILY IV 05/16/25 10:00 05/18/25 09:51 40 MG Alprazolam 0.25 mg Q8HP PRN NG 05/15/25 14:45 05/15/25 15:58 0.25 MG Fentanyl 25 mcg Q72H TD 05/15/25 15:00 Acetaminophen 650 mg Q6HP PRN PO 05/16/25 19:15 05/18/25 16:01 650 MG Acetaminophen/ Hydrocodone Bitart 1 tab Q4HPRN PRN PO 05/18/25 18:00 Examination General Appearance: TV 450 RR 14 FIO2 30 PEEP 5 HEENT: Atraumatic, PERRLA, EOMI, Mucous membr. moist/pink, the hematoma looks stable but appears to be undergoing resorption, is migrated along the subcutaneous to the back and flanks, tracheostomy functioning Respiratory: Bilateral basal crackles Cardiovascular: rhythmic HR 60-70 Abdominal: Normal bowel sounds, Soft, No tenderness, No hepatospenomegaly, No masses Extremities: PICC line right arm Skin: No rashes, No breakdown, No significant lesion laboratory and microbiology Laboratory Tests 05/18/25 03:00 Test 05/18/25 03:00 Range/Units Serum Glucose 169 H 74-106 mg/dL Microbiology Date/Time Source Procedure Growth Status 05/16/25 10:50 Bronchial Washings Gram Stain - Final Resulted 05/16/25 10:50 Bronchial Washings Respiratory Culture - Preliminary Resulted 05/12/25 12:44 Voided Urine Urine Culture - Final Complete 05/12/25 11:12 Blood Blood Culture - Final NO GROWTH AFTER 5 DAYS OF INCUBATION. Complete 05/03/25 20:20 Trachea Gram Stain - Final Complete 05/03/25 20:20 Respiratory Culture - Final Pseudomonas aeruginosa Complete 04/28/25 12:55 Pleural Fluid Gram Stain - Final Complete 04/28/25 12:55 Pleural Fluid Aerobic Culture - Final Complete Problem List/Assessment/Plan Problem List/Assessment/Plan Neurologic #Acute metabolic encephalopathy due to hypercapnic respiratory failure sedation: fentanyl and precedex, please titrate down precedex xanax po tylenol iv fentanyl patch Cardiovascular #Acute exacerbation of heart failure with possible reduced ejection fraction #Septic shock ECHO EF 25%: severe dilated cavities, LHC no significant CAD Cardiology on board dc jardiance 10 mg levophed off off dopamine furosemide 40 mg IV #New onset atrial flutter 2-1 AV conduction with RVR resolved #Possible sick sinus syndrome #Hypertensive emergency resolved #Hypertensive heart disease with systolic failure #sp CVC removal from right brachiocephalic/subclavian artery #neck hematoma #Moderate left and small right pleural effusions with compressive atelectasis hb stable, patient is having a bruise, migrating to the back, no expansive hematoma at the moment 05/05/25: extend discussion with the family today and Dr Kumar IR: positive pressure of the ventilator is helping to control the bleeding, we are going to wait until hematoma is decreasing to do another intervention, possibility of tracheostomy and stent placement were discussed with the family, risk of stroke were discussed, if hb and platelets are stable and if is not active bleeding, expectant management will be carried, there is not expansible hematoma, pseudomonas is growing in new sputum culture, still sensible to zosyn, we are going to restart the feedings, amiodarone once daily, no anticoagulation, levophed 2 mcg 05/06/25: his HR has been into the 40s, possible sick sinus syndrome, amiodarone DC, dopamine fixed dose started, levophed titrate down, T max 100, vancomycin will be started, free water started due to hypernatremia, the ecchymosis is migrating to the lower body, his hb is stable, extensive discussion with the family about the plan 05/07/25: HB 9,.9 plt 98, hematoma at the neck looks bigger, STAT angioct scan was done: showing Large heterogeneous hematoma is seen in the right lower neck which measures 9.9 x 5.9 cm and No evidence of acute arterial extravasation or injury. platelets were given. Case discussed with Dr Fernandez, who stated no need of stent at the moment Na 151 d5w 50cc/h, vancomycin was added 05/11/25: off dopamine, HR 70s, BPs elevated, hb is trending down, platelets normal, extensive discussion with the family held about the need of tracheostomy, surgery consult placed for tracheostomy, stop jardiance, free water, continue furosemide 20 mg daily 05/12/25: off pressors, HR control, hb is trending down, platelets trending high, dr Dorsey stated tracheostomy tomorrow, due to persistent fevers, dc zosyn, add meropenem, new cultures ordered, extensive discussion with family about the need of tracheostomy 05/13/25: tracheostomy was done: The hematoma was entered and retracted laterally. There was some aspiration of old blood with no evidence of ongoing hemorrhage. A size 8 cuffed non-fenestrated tracheostomy tube was placed, patient came back to the unit stable, low dose levophed 05/14/25: we are going to start reduce sedation, ct scan of neck and chest showed Right neck/scapular region hyperdense collection / lesion measuring 10.5 x 5.6 cm, similar to previous examination, likely corresponding to the provided history of hematoma. No definitive arterial extravasation seen. Respiratory #Septic shock #Acute respiratory failure due to COPD exacerbation and heart failure #s/p mechanical ventilation #Respiratory alkalosis #Bilateral pleural effusions L>R at admission: likely parapneumonic Thoracentesis done 1.3 LT drained: exudate #pneumonia gram+/ gram - due to klebsiella pneumoniae and pseudomonas aeruginosa #Severe respiratory acidosis resolved TV 450 RR 16 FIO2 30 PEEP 5 meropenem and vancomycin #SP tracheostomy 05/13/25 #sp bronchoscopy 05/19/25 05/14/25 Moderate left and small right pleural effusions with compressive atelectasis, hb and platelets are trending high, patient is having fevers, we are going to continue high spectrum antibiotics, tracheostomy on place functioning properly 05/15/25: patient is off versed, now on precedex, the idea is to continue decrease sedation, we are going to titrate down precedex drip, start fentanyl patch, tylenol IV and xanax, no need of thoracentesis for now, we are going to increase diuresis, klebsiella and pseudomonas in sputum, sensible to meropenem, hb and platelets trending high 05/18/25: during the weekend, patient had a bronchoscopy There were copious semipurulent secretions in the airways bilaterally that were loosened up with approximately 50 cc of normal saline and thoroughly suctioned into a separate specimen container. There were no endobronchial lesions however, mucosa appeared inflamed and easily friable, patient is on min sedation with precedex, cpap trial attempt and later trach collar for 6 min, later the patient was placed again on mechanical ventilation due to agitation and deconditioning, trach collar trial tomorrow again, hb and platelets stable Endocrinology #DM type 2, hba1c 6.7 ISS, moderate #Hypernatremia mild monitor Renal #Hyperkalemia, resolved #BAO due to VMN resolved IV insulin and furosemide given GI tube feedings: continue feedings #Mild Hyperbillirubinemia #Constipation resolved lactulose due to constipation Hem/onc #Anemia, normochromic, normocytic: 9.9 #Thrombocytopenia: 308 monitor, transfusion of 2 apheresis of platelets previously Lines: PICC line right upper arm 05/01/25 intubation 04/23/25 extubated 05/01/25 reintubated 05/04/25 removed 05/13/25 kenney catheter 04/23/25 tracheostomy tube 05/13/[address] Corrales Full code Time spent on critical care 117 min, includin cpap trial, trach collar trial and discussion with family excluding procedures No anticoagulation, high risk of bleeding PUD prophylaxis: protonix IV Plan discussed with: Spouse, Daughter My Orders My Orders Orders - MIS REYEZ RESIDENT Procedure Category Date Status Time Chest Xray 1 View XY 05/18/25 Resulted 04:00 Abg W/ Co-Ox RT 05/18/25 Logged 06:00 Creatinine LAB 05/19/25 Verified 04:00 Vancomycin,Trough LAB 05/22/25 Verified 08:00 Vancomycin Per AV 05/18/25 In Process Pharmacy Protoc 10:06 Hydrocodone-Acet PHA 05/18/25 In Process 5/325mg Tab ([place] 18:00 Dietary Evaluation Review Comments: Nutrition Recommendation: 1. TF Vital AF 1.2 Luis Enrique @ 60 ml/hr. start @ 20ml/hr, increase 10ml/hr Q4H until goal is reached. TF at goal volume provides 100% energy & protein needs - 1728 kcal, 108 gm protein, 1168 ml free water 2. Water flush 140ml Q6H if allowed 3. TPN if NPO> 7 days Expected Outcomes/Goals: To meet >75% estimated needs Fu 2-3 days Date of Service: May 18, 2025 Billing Provider: PAMELA CORRALES MD Common Visit Codes: 09652-BJSMGLMC CARE 30-74 MIN, 26446-[id number] CARE-EACH +30MIN (X2) MIS REYEZ RESIDENT May 18, 2025 18:27 PAMELA CORRALES MD May 19, 2025 14:29
[2025-05-19] VITALS (103 sets, daily range): BP systolic 67–185; BP diastolic 52–129; PULSE 59–85; RESP 9–27; TEMP 98.4–100.6; O2SAT 94–100
[2025-05-19 03:35] LABS: Hematocrit 30.1 % (41.0-53.0); Hemoglobin 9.9 g/dL (13.5-17.5); Mean Corpuscular Hemoglobin 30.0 pg (28.0-32.0); Mean Corpuscular Volume 91.3 fL (80.0-100.0); Nucleated Red Blood Cells % 0.2 %
[2025-05-19 03:49] LABS: Alanine Aminotransferase 32 U/L (7-40); Alkaline Phosphatase 86 U/L (46-116); Anion Gap 9 (5-15); BUN/Creatinine Ratio 38.3 (10.0-20.0); Blood Urea Nitrogen 18 mg/dL (9-23); Carbon Dioxide 26 mmol/L (20-31); Potassium 3.7 mmol/L (3.5-5.1); Sodium 143 mmol/L (136-145); Total Protein 5.8 g/dL (5.7-8.2)
[2025-05-19 03:50] LABS: Bilirubin, Total 0.8 mg/dL (0.2-1.0)
[2025-05-19 03:54] LABS: Calcium 8.0 mg/dL (8.7-10.4); Chloride 108 mmol/L (98-107); Glucose 183 mg/dL (74-106)
[2025-05-19 03:56] LABS: Albumin 3.1 g/dL (3.2-4.8)
--- NOTE | 2025-05-19 04:29 | DVH ---
CHEST RADIOGRAPH Indication: pneumonia Technique: Single frontal view of the chest was obtained COMPARISON: XY CHEST XRAY 1 VIEW on DOS: 05/18/25, XY CHEST PORTABLE on DOS: 05/17/25, XY CHEST XRAY 1 VIEW on DOS: 05/16/25, XY CHEST XRAY 1 VIEW on DOS: 05/15/25, XY CHEST XRAY 1 VIEW on DOS: 05/14/25 FINDINGS: Lines and Tubes: Unchanged Lungs: Stable appearing small bilateral pleural effusions and bibasilar pulmonary airspace disease. No pneumothorax. Cardiomediastinal contours: Unremarkable Bones: Unremarkable IMPRESSION: 1. Stable bibasilar pulmonary airspace disease and small bilateral pleural effusions. 2. Lines and tubes unchanged.
[2025-05-19 07:00] LABS: Base Excess 2.4 mmol/L (-2.0-3.0)
[2025-05-19] MEDS: LOSARTAN POTASSIUM 50 MG TAB PO ONE (14:04)
[2025-05-19] MEDS: PSYLLIUM PWD 5.8GM PKG PO ONE (14:30)
[2025-05-19] MEDS: FUROSEMIDE 20 MG/2 ML VIAL IV ONE (15:00)
[2025-05-19 16:37] LABS: Urine Protein, UAD 1+ (Negative)
--- NOTE | 2025-05-19 17:49 | DVHPNRES ---
Progress Note Date Seen: May 19, 2025 Resident Creating Document: MIS REYEZ RESIDENT Has the PT tested + for MRSA If YES, has PT been informed?: No Medical Necessity Reason Pt with a Central, PICC or Fol: Yes The following are medically ne: PICC Line, Kenney Catheter Reason for kenney catheter: Strict I&O Subjective Review of Systems Mr. Farley is a 79-year-old male who presents with a chief complaint of bilateral leg swelling. He reports a chronic history of leg swelling, previously managed with a medication obtained from [place], the name of which he cannot recall. He admits to not taking this medication for some time. The patient is a poor historian but endorses a past medical history of diabetes mellitus (DM), hypertension (HTN), and an unspecified "heart issue." He denies any recent chest pain, shortness of breath, or dizziness. On triage, his blood pressure was markedly elevated at 180/116 mmHg with a pulse of 140 bpm. Given his history and current presentation, differential diagnoses include fluid retention possibly due to cardiac or renal insufficiency, medication noncompliance, electrolyte imbalance, and other systemic causes. Past Medical History diabetes mellitus (DM), hypertension (HTN), and an unspecified "heart issue." Past Surgical History none Family History: None (Noncontributory) Smoke: No ALCOHOL: none Drugs: None Lives: with Family Domestic Violence: Neg 04/23/25: patient was found with high oxygen requirements, respiratory acidosis, BIPAP was placed, POCUS at bedside possible reduced ejection fraction and hypokinesis, patient is having acute respiratory failure due to acute exacerbation of heart failure and COPD, antibiotics and solumedrol were started, mild hypokalemia was resolved with IV insulin 10 ui and furosemide, patient still has HR above 130, carvedilol is added, patient is MARIELENA status 04/24/25: during the night of 04/23/25, patient started to be more hypercapnic and drowsy, not responding to BIPAP, so talking with bhavani family the decision was to intubate, also patient started to be hypotensive with the need of vasopressors, central line was attempted to be placed on right yugular vein but the catheter is found to be entering through the brachiocephalic (innominate) artery with its tip residing in the Aortic arch, AngioCT scan STAT confirmed the findings, general surgery was consulted who advice endovascular stent placement to span the defect in the artery by means of transfemoral arteriography done by Interventional Radiologist, the removal of the catheter was done successfully by Dr José ARZOLA (formal radiological report pending) , right now we are going to f/u hb and bed rest, family was informed about the interventions, consent forms were signed, at the moment on fentanyl and versed drip, levophed 7 mcg, ABG after procedure ph 7.47 pco2 38 po2 69.6 hco3 27.8 ,continue monitor 04/27/25: During the weekend, no bleeding from the puncture site, patient is being on afib, levophed was wean off and phenylephrine was started, also digoxin was on, low dose heparin was started due to high chadvasc. Also sedation vacation was done, but today at 4 am patient started to be agitated. His platelets are 129. Cardiology today, they changed digoxin to amiodarone. Anticoagulation was DC, he will benefit for cath due to EF 25% , possible on sunday, Lipid panel normal. 04/28/25: amiodarone dc by cardiology, off pressors, thoracentesis done, 1.3 LT drained, klebsiella positive in sputum, [facility] tomorrow 04/29/25: off pressors, HR in the 70s, patient was slightly agitated, sedation was increased, vanco dc, [facility] with normal coronaries 04/30/25: off pressors, patient will benefit from cpap trial, precedex am, dc TLC, PICC line consult, cardiology started jardiance and metoprolol 05/01/25: PICC line placed at 7 am, on precedex infusion cpap started at 12: 30 pm ABG: PaFiO2 271, patient had an episode of agitation HR went up to 170s, afib with RVR, amiodarone drip was ordered, but after the agitation episode resolves, HR went down, right now patient is calm, extubated at 2 pm. 05/02/25: extubated, repleted K, agitated, adding Seroquel. pending bedside swallow, off pressors 05/03/25: bruise on neck expanding, hb drop. sending for CT, start oral feeding, holding lasix for now, increasing GDMT. avoid CCB. CT showed active bleeding, decision to transfer [facility] for CT/vasc. ss consult placed. trend HH. patient was intubated for airway protection 05/04/25: patient was seen by IR, neck angiogram done with active bleeding stopped. pressor low dose likely sedation related. c/w to trend h/h. plt >100, given vit k. 05/05/25: extend discussion with the family today and Dr Kumar IR: positive pressure of the ventilator is helping to control the bleeding, we are going to wait until hematoma is decreasing to do another intervention, possibility of tracheostomy and stent placement were discussed with the family, risk of stroke were discussed, if hb and platelets are stable and if is not active bleeding expectant management will be done, there is not expansible hematoma, pseudomonas is growing in new sputum culture, still sensible to zosyn, we are going to restart the feedings, amiodarone once daily, no anticoagulation, levophed 2 mcg 05/06/25: his HR has been into the 40s, possible sick sinus syndrome, amiodarone DC, dopamine fixed dose started, levophed titrate down, T max 100, vancomycin will be started, free water started due to hypernatremia, the ecchymosis is migrating to the lower body, his hb is stable, extensive discussion with the family about the plan, 05/07/25: HB 9,.9 plt 98, hematoma at the neck looks bigger, STAT angioct scan was done: showing Large heterogeneous hematoma is seen in the right lower neck which measures 9.9 x 5.9 cm and No evidence of acute arterial extravasation or injury. platelets were given. Case discussed with Dr Fernandez, who stated no need of stent at the moment Na 151 d5w 50cc/h, vancomycin was added 05/08/25: hb 10 plat 109 --> 98, new apheresis of platelets given, Na 145, dc d5w, HR is trending slowly higher, we are going to continue dopamine fixed dose, but the risk of going back to afib exist, levophed 1 mcg, IR, Dr Fernandez, came at bedside, explained to the family that in case of active bleeding stent will be placed and the risk of adverse events is about 15-20% (stroke, stent thrombosis), also the possibility of tracheostomy is on the table if hematoma is not subsiding. Bag of 5 pounds is on the hematoma to help with resorption 05/09-initially here for pneumonia. Central line was tried for Levophed which was inadvertently inserted into brachiocephalic CBC, which led to bleed evaluated by IR concluded as controlled bleed likely hematoma. Area is marked there is some mild increase in ecchymosis on right neck but not significant from marked area. Fecal not repeat imaging today. Also having thrombocytopenia stable today at 1:10 a.m.. We will transfuse if platelets below 100. We will continue primary team's plan no sedation vacations/CPAP trial over the weekend. Patient bradycardic currently on Levophed 0.5 dopamine drip to. Other drips include Versed, fentanyl, antibiotics Zosyn. Patient getting enteral feeds OG tube with free water flushes. Ventilated a.c. 16/450/30%/8.0. Breath sounds bilateral, bradycardic on exam, no edema, pulses present, hematoma right shoulder acknowledged. We will continue to monitor. 05/10/25---right shoulder hematoma/ecchymosis again a little increased in size but hemoglobin stable, platelets stable hemodynamics stable. We will defer imaging to tomorrow to primary. Vitals stable heart rate over 60. Labs more than 70,. Pulmonology wanted to try to wean, we will communicate to nurse to inform pulmonology primary team advised against weaning trials over the weekend. Drips include Versed 5, fentanyl 175, dopa to.. Vent a.c. 16/4 50/30%/8.0. Bowel movements 3 overnight, urine output adequate. We will continue primary team's management. 05/11/25: off dopamine, HR 70s, BPs elevated, hb is trending down, platelets normal, extensive discussion with the family held about the need of tracheostomy, surgery consult placed for tracheostomy, stop jardiance, free water, continue furosemide 20 mg daily 05/12/25: off pressors, HR control, hb is trending down, platelets trending high, dr Dorsey stated tracheostomy tomorrow, due to persistent fevers, dc zosyn, add meropenem, new cultures ordered, extensive discussion with family about the need of tracheostomy 05/13/25: tracheostomy was done: The hematoma was entered and retracted laterally. There was some aspiration of old blood with no evidence of ongoing hemorrhage. A size 8 cuffed non-fenestrated tracheostomy tube was placed, patient came back to the unit stable 05/14/25: we are going to start reduce sedation, ct scan of neck and chest showed Right neck/scapular region hyperdense collection / lesion measuring 10.5 x 5.6 cm, similar to previous examination, likely corresponding to the provided history of hematoma. No definitive arterial extravasation seen. Moderate left and small right pleural effusions with compressive atelectasis, hb and platelets are trending high, patient is having fevers, we are going to continue high spectrum antibiotics, tracheostomy on place functioning properly 05/15/25: patient is off versed, now on precedex, the idea is to continue decrease sedation, we are going to titrate down precedex drip, start fentanyl patch, tylenol IV and xanax, no need of thoracentesis for now, we are going to increase diuresis, klebsiella and pseudomona in sputum, sensible to meropenem, hb and platelets trending high 05/18/25: during the weekend, patient had a bronchoscopy There were copious semipurulent secretions in the airways bilaterally that were loosened up with approximately 50 cc of normal saline and thoroughly suctioned into a separate specimen container. There were no endobronchial lesions however, mucosa appeared inflamed and easily friable, patient is on min sedation with precedex, cpap trial attempt and later trach collar for 6 min, later the patient was placed again on mechanical ventilation due to agitation and deconditioning, trach collar trial tomorrow again, hb and platelets stable 05/19/25: trach collar trial pm 20 min, then trach collar trial am 6 min, patient was placed on SIMV for 5 min, started to have tachypnea, we will continue exercise, SIMV daily, change kenney, high BPs losartan daily, on extra dose of furosemide, loose stools, metamucil started Objective vital signs Vital Sign Date Time Temp Pulse Resp B/P (MAP) Pulse Ox O2 Delivery O2 Flow Rate FiO2 05/19/25 17:32 100.3 05/19/25 17:00 65 16 139/68 (91) 100 05/19/25 16:00 Mechanical Ventilator+ 30 30 Total Intake and Output 05/18/25 05/18/25 05/19/25 15:00 23:00 07:00 Intake Total 206.875 ml 262.33 ml 606.14 ml Output Total 1425 ml 625 ml Balance 206.875 ml -1162.67 ml -18.86 ml medications Current Medications Medications Dose Ordered Sig/Jose Alfredo Route Start Time Stop Time Status Last Admin Dose Admin Propofol 100 ml @ 2.268 mls/ hr Q24H IV 04/23/25 20:45 05/01/25 04:51 2.268 MLS/HR Fentanyl Citrate 250 ml @ 2.5 mls/hr Q24H IV 04/23/25 20:45 05/17/25 12:09 20 MLS/HR Midazolam HCl 50 ml @ 1 mls/hr Q24H IV 04/23/25 23:15 05/16/25 23:03 4 MLS/HR Pantoprazole Sodium 40 mg DAILY IV 04/28/25 10:00 05/19/25 10:39 40 MG Sodium Chloride 10 ml QSHIFT@10,22 IV 05/01/25 10:00 05/19/25 10:40 10 ML Enteral Nutritional Formula 1,000 ml 60ML/HR GT 05/05/25 16:45 05/17/25 22:13 1,000 ML Atropine Sulfate 1 mg UD PRN IV 05/07/25 02:00 Dextrose 50 ml UD PRN IV 05/07/25 18:00 Insulin Human Regular ACHS SC 05/08/25 17:00 05/19/25 12:24 2 UNITS Diagnostic Test (Pha) 1 strip ACHS 05/08/25 17:00 05/19/25 17:00 1 STRIP Norepinephrine Bitartrate 250 ml @ 0.938 mls/ hr Q24H IV 05/14/25 03:45 05/16/25 00:20 0.938 MLS/HR Vancomycin HCl 150 ml @ 100 mls/hr Q12H IV 05/14/25 21:00 UNV Meropenem 50 ml @ 17 mls/hr Q8HR IV 05/14/25 22:00 05/19/25 14:04 17 MLS/HR Furosemide 40 mg DAILY IV 05/16/25 10:00 05/19/25 10:39 40 MG Alprazolam 0.25 mg Q8HP PRN NG 05/15/25 14:45 05/15/25 15:58 0.25 MG Fentanyl 25 mcg Q72H TD 05/15/25 15:00 Acetaminophen 650 mg Q6HP PRN PO 05/16/25 19:15 05/19/25 15:46 650 MG Acetaminophen/ Hydrocodone Bitart 1 tab Q4HPRN PRN PO 05/18/25 18:00 Losartan Potassium 50 mg DAILY PO 05/20/25 10:00 Psyllium Hydrophilic Mucilloid 1 pkg DAILY PO 05/20/25 10:00 Examination General Appearance: TV 450 RR 14 FIO2 30 PEEP 5 HEENT: Atraumatic, PERRLA, EOMI, Mucous membr. moist/pink, the hematoma looks stable but appears to be undergoing resorption, is migrated along the subcutaneous to the back and flanks, tracheostomy functioning Respiratory: Bilateral basal crackles Cardiovascular: rhythmic HR 60-70 Abdominal: Normal bowel sounds, Soft, No tenderness, No hepatospenomegaly, No masses Extremities: PICC line right arm Skin: No rashes, No breakdown, No significant lesion Neurological: patient is alert, interacting with family no agitation laboratory and microbiology Laboratory Tests 05/19/25 02:52 Test 05/19/25 02:52 Range/Units Serum Glucose 183 H 74-106 mg/dL Microbiology Date/Time Source Procedure Growth Status 05/16/25 10:50 Bronchial Washings Gram Stain - Final Complete 05/16/25 10:50 Respiratory Culture - Final Yeast, not Reena albicans Complete 05/12/25 12:44 Voided Urine Urine Culture - Final Complete 05/12/25 11:12 Blood Blood Culture - Final NO GROWTH AFTER 5 DAYS OF INCUBATION. Complete 05/03/25 20:20 Trachea Gram Stain - Final Complete 05/03/25 20:20 Respiratory Culture - Final Pseudomonas aeruginosa Complete 04/28/25 12:55 Pleural Fluid Gram Stain - Final Complete 04/28/25 12:55 Pleural Fluid Aerobic Culture - Final Complete Problem List/Assessment/Plan Problem List/Assessment/Plan Neurologic #Acute metabolic encephalopathy due to hypercapnic respiratory failure sedation: low dose precedex xanax po Cardiovascular #Acute exacerbation of heart failure with possible reduced ejection fraction #Septic shock resolved? ECHO EF 25%: severe dilated cavities, LHC no significant CAD Cardiology on board levophed off off dopamine furosemide 40 mg IV + 1 extra dose #Hypertension Losartan 50 mg daily #New onset atrial flutter 2-1 AV conduction with RVR resolved #Possible sick sinus syndrome #Hypertensive emergency resolved #Hypertensive heart disease with systolic failure #sp CVC removal from right brachiocephalic/subclavian artery #neck hematoma #Moderate left and small right pleural effusions with compressive atelectasis hb stable, patient is having a bruise, migrating to the back, no expansive hematoma at the moment 05/05/25: extend discussion with the family today and Dr Kumar IR: positive pressure of the ventilator is helping to control the bleeding, we are going to wait until hematoma is decreasing to do another intervention, possibility of tracheostomy and stent placement were discussed with the family, risk of stroke were discussed, if hb and platelets are stable and if is not active bleeding, expectant management will be carried, there is not expansible hematoma, pseudomonas is growing in new sputum culture, still sensible to zosyn, we are going to restart the feedings, amiodarone once daily, no anticoagulation, levophed 2 mcg 05/06/25: his HR has been into the 40s, possible sick sinus syndrome, amiodarone DC, dopamine fixed dose started, levophed titrate down, T max 100, vancomycin will be started, free water started due to hypernatremia, the ecchymosis is migrating to the lower body, his hb is stable, extensive discussion with the family about the plan 05/07/25: HB 9,.9 plt 98, hematoma at the neck looks bigger, STAT angioct scan was done: showing Large heterogeneous hematoma is seen in the right lower neck which measures 9.9 x 5.9 cm and No evidence of acute arterial extravasation or injury. platelets were given. Case discussed with Dr Fernandez, who stated no need of stent at the moment Na 151 d5w 50cc/h, vancomycin was added 05/11/25: off dopamine, HR 70s, BPs elevated, hb is trending down, platelets normal, extensive discussion with the family held about the need of tracheostomy, surgery consult placed for tracheostomy, stop jardiance, free water, continue furosemide 20 mg daily 05/12/25: off pressors, HR control, hb is trending down, platelets trending high, dr Dorsey stated tracheostomy tomorrow, due to persistent fevers, dc zosyn, add meropenem, new cultures ordered, extensive discussion with family about the need of tracheostomy 05/13/25: tracheostomy was done: The hematoma was entered and retracted laterally. There was some aspiration of old blood with no evidence of ongoing hemorrhage. A size 8 cuffed non-fenestrated tracheostomy tube was placed, patient came back to the unit stable, low dose levophed 05/14/25: we are going to start reduce sedation, ct scan of neck and chest showed Right neck/scapular region hyperdense collection / lesion measuring 10.5 x 5.6 cm, similar to previous examination, likely corresponding to the provided history of hematoma. No definitive arterial extravasation seen. Respiratory #Septic shock #Acute respiratory failure due to COPD exacerbation and heart failure #s/p mechanical ventilation #Respiratory alkalosis #Bilateral pleural effusions L>R at admission: likely parapneumonic Thoracentesis done 1.3 LT drained: exudate #pneumonia gram+/ gram - due to klebsiella pneumoniae and pseudomonas aeruginosa #Severe respiratory acidosis resolved TV 450 RR 16 FIO2 30 PEEP 5 meropenem #SP tracheostomy 05/13/25 #sp bronchoscopy 05/19/25 05/14/25 Moderate left and small right pleural effusions with compressive atelectasis, hb and platelets are trending high, patient is having fevers, we are going to continue high spectrum antibiotics, tracheostomy on place functioning properly 05/15/25: patient is off versed, now on precedex, the idea is to continue decrease sedation, we are going to titrate down precedex drip, start fentanyl patch, tylenol IV and xanax, no need of thoracentesis for now, we are going to increase diuresis, klebsiella and pseudomonas in sputum, sensible to meropenem, hb and platelets trending high 05/18/25: during the weekend, patient had a bronchoscopy There were copious semipurulent secretions in the airways bilaterally that were loosened up with approximately 50 cc of normal saline and thoroughly suctioned into a separate specimen container. There were no endobronchial lesions however, mucosa appeared inflamed and easily friable, patient is on min sedation with precedex, cpap trial attempt and later trach collar for 6 min, later the patient was placed again on mechanical ventilation due to agitation and deconditioning, trach collar trial tomorrow again, hb and platelets stable 05/19/25: trach collar trial pm 20 min, then trach collar trial am 6 min, patient was placed on SIMV for 5 min, started to have tachypnea, we will continue exercise, SIMV daily, change kenney, high BPs losartan daily, on extra dose of furosemide, loose stools, metamucil started, dc vancomycin Endocrinology #DM type 2, hba1c 6.7 ISS, moderate #Hypernatremia mild monitor Renal #Hyperkalemia, resolved #BAO due to VMN resolved IV insulin and furosemide given GI tube feedings: continue feedings #Mild Hyperbillirubinemia resolved #Constipation resolved loose stools, metamucil started Hem/onc #Anemia, normochromic, normocytic: 10.4 #Thrombocytopenia resolved: 426 monitor, transfusion of 2 apheresis of platelets previously Lines: PICC line right upper arm 05/01/25 intubation 04/23/25 extubated 05/01/25 reintubated 05/04/25 removed 05/13/25 kenney catheter 04/23/25 tracheostomy tube 05/13/[address] Corrales Full code Time spent on critical care 96 min, including SIMV, trach collar trial and discussion with family excluding procedures No anticoagulation, high risk of bleeding PUD prophylaxis: protonix IV Plan discussed with: Spouse, Daughter My Orders My Orders Orders - MIS REYEZ RESIDENT Procedure Category Date Status Time Hydrocodone-Acet PHA 05/18/25 In Process 5/325mg Tab (Eph[facility] 18:00 Chest Xray 1 View XY 05/19/25 Resulted 04:00 Abg W/ Co-Ox RT 05/19/25 Logged 04:00 Stool Bacterial BETSY 05/19/25 Logged Culture 10:06 Stool Wbc LAB 05/19/25 Logged 10:06 Trach Collar Trial RT 05/19/25 Transmitted 14:39 Dietary Evaluation Review Comments: Nutrition Recommendation: 1. TF Vital AF 1.2 Luis Enrique @ 60 ml/hr. start @ 20ml/hr, increase 10ml/hr Q4H until goal is reached. TF at goal volume provides 100% energy & protein needs - 1728 kcal, 108 gm protein, 1168 ml free water 2. Water flush 140ml Q6H if allowed 3. TPN if NPO> 7 days Expected Outcomes/Goals: To meet >75% estimated needs Fu 2-3 days Date of Service: May 19, 2025 Billing Provider: PAMELA CORRALES MD Common Visit Codes: 16809-AMRMCUNP CARE 30-74 MIN, [id number] CARE-EACH +30MIN MIS REYEZ May 19, 2025 17:49 PAMELA CORRALES MD May 20, 2025 10:33
[2025-05-20] VITALS (98 sets, daily range): BP systolic 59–180; BP diastolic 39–137; PULSE 56–100; RESP 10–29; TEMP 99.1–100.7; O2SAT 82–100
[2025-05-20] MEDS: LABETALOL HCL 20 MG/4 ML VL IV ONE (01:37)
[2025-05-20 03:27] LABS: Hematocrit 30.7 % (41.0-53.0); Hemoglobin 10.4 g/dL (13.5-17.5); Mean Corpuscular Hemoglobin 30.8 pg (28.0-32.0); Mean Corpuscular Volume 91.3 fL (80.0-100.0); Nucleated Red Blood Cells % 0.1 %
[2025-05-20 03:52] LABS: Alanine Aminotransferase 31 U/L (7-40); Alkaline Phosphatase 85 U/L (46-116); Anion Gap 9 (5-15); BUN/Creatinine Ratio 35.6 (10.0-20.0); Blood Urea Nitrogen 16 mg/dL (9-23); Carbon Dioxide 28 mmol/L (20-31); Chloride 104 mmol/L (98-107); Sodium 141 mmol/L (136-145); Total Protein 5.9 g/dL (5.7-8.2)
[2025-05-20 03:53] LABS: Albumin 3.2 g/dL (3.2-4.8); Bilirubin, Total 1.0 mg/dL (0.2-1.0); Calcium 7.9 mg/dL (8.7-10.4); Glucose 112 mg/dL (74-106); Potassium 3.1 mmol/L (3.5-5.1)
--- NOTE | 2025-05-20 04:07 | DVH ---
CHEST RADIOGRAPH Indication: intubated Technique: Single frontal view of the chest was obtained COMPARISON: XY CHEST XRAY 1 VIEW on DOS: 05/19/25, XY CHEST XRAY 1 VIEW on DOS: 05/18/25, XY CHEST PORT ABLE on DOS: 05/17/25, XY CHEST XRAY 1 VIEW on DOS: 05/16/25, XY CHEST XRAY 1 VIEW on DOS: 05/15/25 FINDINGS: Lines and Tubes: Unchanged. Lungs: Stable appearing bibasilar pulmonary airspace disease and bilateral pleural effusions. No pneumothorax. Cardiomediastinal contours: Unremarkable Bones: Unremarkable IMPRESSION: 1. Stable bibasilar pulmonary airspace disease and bilateral pleural effusions. 2. Lines and tubes unchanged.
[2025-05-20] MEDS: POTASSIUM CHL 20MEQ/100ML 100 ML IV SCH (04:49)
[2025-05-20 06:48] LABS: Base Excess 1.0 mmol/L (-2.0-3.0)
[2025-05-20] MEDS ORDERED: LOSARTAN POTASSIUM 50 MG TAB PO SCH (10:00)
[2025-05-20] MEDS: MICAFUNGIN SODIUM 100 MG in SODIUM CHL 0.9% 100 ML IV ONE (10:30)
[2025-05-20] MEDS: SACUBITRIL-VALSARTAN 24mg/26mg TAB PO ONE ×2 (11:27→16:09)
--- NOTE | 2025-05-20 11:27 | DVH ---
EXAM: XY CHEST PORTABLE Indication: ng tube placement Technique: Single frontal view of the chest was obtained Comparison: XY CHEST XRAY 1 VIEW on DOS: 05/20/25, XY CHEST XRAY 1 VIEW on DOS: 05/19/25, XY CHEST XRAY 1 VIEW on DOS: 05/18/25, XY CHEST PORTABLE on DOS: 05/17/25, XY CHEST XRAY 1 VIEW on DOS: 05/16/25 FINDINGS: Lines and Tubes: Tracheostomy tube is visualized. Enteric tube tip projects over the expected region of the stomach. Right PICC tip projects over superior vena cava. Lungs: Multifocal interstitial opacities. Pleura: Small bilateral pleural effusions. No pneumothorax. Cardiomediastinal contours: Mild cardiomegaly. Bones: No acute osseous abnormality. IMPRESSION: No significant change compared to prior exam.
[2025-05-20] MEDS: PSYLLIUM PWD 5.8GM PKG PO SCH (11:31)
--- NOTE | 2025-05-20 12:05 | DVH ---
Bilateral Chest Sonogram Date: 05/20/2025 11:04 AM Clinical history: FLUID CHECK FOR POSSIBLE THORACENTESIS Findings: Limited sonographic evaluation of the right and left chest was performed to localize and megan fluid f or thoracentesis. Trace right pleural effusion. Moderate /large left pleural effusion IMPRESSION: Limited sonographic evaluation of the right and left chest was performed to localize and megan fluid f or thoracentesis. Trace right pleural effusion. Moderate /large left pleural effusion END IMPRESSION:
--- NOTE | 2025-05-20 12:23 | DVH ---
US THORACENTESIS, HISTORY: THORA PROCEDURE: Informed consent was obtained. The patient was decubitus on the bed. A limited localizatio n ultrasound of the left thorax was obtained, and the optimal approach was marked on the skin. The ar ea was prepped with chlorhexidine which was allowed to dry and draped in the usual sterile fashion. T neda out was performed. The skin and the soft tissues were infiltrated with 1% lidocaine. A 5.5 [place] centesis needle catheter was advanced into left pleural space. Following aspiration of fluid, the ca theter was advanced and the needle removed. About 950 cc of fluid was drained. Specimen/s was/were se nt for appropriate cultures/cytology/cultures and cytology. No immediate complication was identified. FINDINGS: Moderate left pleural effusion. Aspirated fluid is clear and serous. IMPRESSION: Left thoracentesis with 925 mL removed.
--- NOTE | 2025-05-20 12:56 | DVH ---
XY CHEST PORTABLE, HISTORY: POST THORACENTESIS COMPARISON: XY CHEST PORTABLE on DOS: 05/20/25, XY CHEST XRAY 1 VIEW on DOS: 05/20/25, XY CHEST XRAY 1 VIEW on DOS: 05/19/25 XY CHEST PORTABLE on DOS: 05/20/25, XY CHEST XRAY 1 VIEW on DOS: 05/20/25, XY CHEST XRAY 1 VIEW on DOS: 05/19/25 TECHNICAL DATA: 1 view of the chest was obtained. FINDINGS: Lines and tubes: Stable lines and tubes. Cardiomediastinal silhouette: normal Pulmonary vasculature: normal Lung expansion: normal Lung airspace: Bibasilar airspace opacities. Lung interstitium: normal Pleura: Small right pleural effusion. Pneumothorax: no Bones: Unremarkable Other: no IMPRESSION: Stable lines and tubes. No pneumothorax seen.
--- NOTE | 2025-05-20 15:11 | DVHPNRES ---
Progress Note Date Seen: May 20, 2025 Resident Creating Document: MIS REYEZ RESIDENT Has the PT tested + for MRSA If YES, has PT been informed?: No Medical Necessity Reason Pt with a Central, PICC or Fol: Yes The following are medically ne: PICC Line, Kenney Catheter Reason for kenney catheter: Strict I&O Subjective Review of Systems Mr. Farley is a 79-year-old male who presents with a chief complaint of bilateral leg swelling. He reports a chronic history of leg swelling, previously managed with a medication obtained from [facility], the name of which he cannot recall. He admits to not taking this medication for some time. The patient is a poor historian but endorses a past medical history of diabetes mellitus (DM), hypertension (HTN), and an unspecified "heart issue." He denies any recent chest pain, shortness of breath, or dizziness. On triage, his blood pressure was markedly elevated at 180/116 mmHg with a pulse of 140 bpm. Given his history and current presentation, differential diagnoses include fluid retention possibly due to cardiac or renal insufficiency, medication noncompliance, electrolyte imbalance, and other systemic causes. Past Medical History diabetes mellitus (DM), hypertension (HTN), and an unspecified "heart issue." Past Surgical History none Family History: None (Noncontributory) Smoke: No ALCOHOL: none Drugs: None Lives: with Family Domestic Violence: Neg 04/23/25: patient was found with high oxygen requirements, respiratory acidosis, BIPAP was placed, POCUS at bedside possible reduced ejection fraction and hypokinesis, patient is having acute respiratory failure due to acute exacerbation of heart failure and COPD, antibiotics and solumedrol were started, mild hypokalemia was resolved with IV insulin 10 ui and furosemide, patient still has HR above 130, carvedilol is added, patient is MARIELENA status 04/24/25: during the night of 04/23/25, patient started to be more hypercapnic and drowsy, not responding to BIPAP, so talking with bhavani family the decision was to intubate, also patient started to be hypotensive with the need of vasopressors, central line was attempted to be placed on right yugular vein but the catheter is found to be entering through the brachiocephalic (innominate) artery with its tip residing in the Aortic arch, AngioCT scan STAT confirmed the findings, general surgery was consulted who advice endovascular stent placement to span the defect in the artery by means of transfemoral arteriography done by Interventional Radiologist, the removal of the catheter was done successfully by Dr José ARZOLA (formal radiological report pending) , right now we are going to f/u hb and bed rest, family was informed about the interventions, consent forms were signed, at the moment on fentanyl and versed drip, levophed 7 mcg, ABG after procedure ph 7.47 pco2 38 po2 69.6 hco3 27.8 ,continue monitor 04/27/25: During the weekend, no bleeding from the puncture site, patient is being on afib, levophed was wean off and phenylephrine was started, also digoxin was on, low dose heparin was started due to high chadvasc. Also sedation vacation was done, but today at 4 am patient started to be agitated. His platelets are 129. Cardiology today, they changed digoxin to amiodarone. Anticoagulation was DC, he will benefit for cath due to EF 25% , possible on sunday, Lipid panel normal. 04/28/25: amiodarone dc by cardiology, off pressors, thoracentesis done, 1.3 LT drained, klebsiella positive in sputum, [facility] tomorrow 04/29/25: off pressors, HR in the 70s, patient was slightly agitated, sedation was increased, vanco dc, [facility] with normal coronaries 04/30/25: off pressors, patient will benefit from cpap trial, precedex am, dc TLC, PICC line consult, cardiology started jardiance and metoprolol 05/01/25: PICC line placed at 7 am, on precedex infusion cpap started at 12: 30 pm ABG: PaFiO2 271, patient had an episode of agitation HR went up to 170s, afib with RVR, amiodarone drip was ordered, but after the agitation episode resolves, HR went down, right now patient is calm, extubated at 2 pm. 05/02/25: extubated, repleted K, agitated, adding Seroquel. pending bedside swallow, off pressors 05/03/25: bruise on neck expanding, hb drop. sending for CT, start oral feeding, holding lasix for now, increasing GDMT. avoid CCB. CT showed active bleeding, decision to transfer [facility] for CT/vasc. ss consult placed. trend HH. patient was intubated for airway protection 05/04/25: patient was seen by IR, neck angiogram done with active bleeding stopped. pressor low dose likely sedation related. c/w to trend h/h. plt >100, given vit k. 05/05/25: extend discussion with the family today and Dr Kumar IR: positive pressure of the ventilator is helping to control the bleeding, we are going to wait until hematoma is decreasing to do another intervention, possibility of tracheostomy and stent placement were discussed with the family, risk of stroke were discussed, if hb and platelets are stable and if is not active bleeding expectant management will be done, there is not expansible hematoma, pseudomonas is growing in new sputum culture, still sensible to zosyn, we are going to restart the feedings, amiodarone once daily, no anticoagulation, levophed 2 mcg 05/06/25: his HR has been into the 40s, possible sick sinus syndrome, amiodarone DC, dopamine fixed dose started, levophed titrate down, T max 100, vancomycin will be started, free water started due to hypernatremia, the ecchymosis is migrating to the lower body, his hb is stable, extensive discussion with the family about the plan, 05/07/25: HB 9,.9 plt 98, hematoma at the neck looks bigger, STAT angioct scan was done: showing Large heterogeneous hematoma is seen in the right lower neck which measures 9.9 x 5.9 cm and No evidence of acute arterial extravasation or injury. platelets were given. Case discussed with Dr Fernandez, who stated no need of stent at the moment Na 151 d5w 50cc/h, vancomycin was added 05/08/25: hb 10 plat 109 --> 98, new apheresis of platelets given, Na 145, dc d5w, HR is trending slowly higher, we are going to continue dopamine fixed dose, but the risk of going back to afib exist, levophed 1 mcg, IR, Dr Fernandez, came at bedside, explained to the family that in case of active bleeding stent will be placed and the risk of adverse events is about 15-20% (stroke, stent thrombosis), also the possibility of tracheostomy is on the table if hematoma is not subsiding. Bag of 5 pounds is on the hematoma to help with resorption 05/09-initially here for pneumonia. Central line was tried for Levophed which was inadvertently inserted into brachiocephalic CBC, which led to bleed evaluated by IR concluded as controlled bleed likely hematoma. Area is marked there is some mild increase in ecchymosis on right neck but not significant from marked area. Fecal not repeat imaging today. Also having thrombocytopenia stable today at 1:10 a.m.. We will transfuse if platelets below 100. We will continue primary team's plan no sedation vacations/CPAP trial over the weekend. Patient bradycardic currently on Levophed 0.5 dopamine drip to. Other drips include Versed, fentanyl, antibiotics Zosyn. Patient getting enteral feeds OG tube with free water flushes. Ventilated a.c. 16/450/30%/8.0. Breath sounds bilateral, bradycardic on exam, no edema, pulses present, hematoma right shoulder acknowledged. We will continue to monitor. 05/10/25---right shoulder hematoma/ecchymosis again a little increased in size but hemoglobin stable, platelets stable hemodynamics stable. We will defer imaging to tomorrow to primary. Vitals stable heart rate over 60. Labs more than 70,. Pulmonology wanted to try to wean, we will communicate to nurse to inform pulmonology primary team advised against weaning trials over the weekend. Drips include Versed 5, fentanyl 175, dopa to.. Vent a.c. 16/4 50/30%/8.0. Bowel movements 3 overnight, urine output adequate. We will continue primary team's management. 05/11/25: off dopamine, HR 70s, BPs elevated, hb is trending down, platelets normal, extensive discussion with the family held about the need of tracheostomy, surgery consult placed for tracheostomy, stop jardiance, free water, continue furosemide 20 mg daily 05/12/25: off pressors, HR control, hb is trending down, platelets trending high, dr Dorsey stated tracheostomy tomorrow, due to persistent fevers, dc zosyn, add meropenem, new cultures ordered, extensive discussion with family about the need of tracheostomy 05/13/25: tracheostomy was done: The hematoma was entered and retracted laterally. There was some aspiration of old blood with no evidence of ongoing hemorrhage. A size 8 cuffed non-fenestrated tracheostomy tube was placed, patient came back to the unit stable 05/14/25: we are going to start reduce sedation, ct scan of neck and chest showed Right neck/scapular region hyperdense collection / lesion measuring 10.5 x 5.6 cm, similar to previous examination, likely corresponding to the provided history of hematoma. No definitive arterial extravasation seen. Moderate left and small right pleural effusions with compressive atelectasis, hb and platelets are trending high, patient is having fevers, we are going to continue high spectrum antibiotics, tracheostomy on place functioning properly 05/15/25: patient is off versed, now on precedex, the idea is to continue decrease sedation, we are going to titrate down precedex drip, start fentanyl patch, tylenol IV and xanax, no need of thoracentesis for now, we are going to increase diuresis, klebsiella and pseudomona in sputum, sensible to meropenem, hb and platelets trending high 05/18/25: during the weekend, patient had a bronchoscopy There were copious semipurulent secretions in the airways bilaterally that were loosened up with approximately 50 cc of normal saline and thoroughly suctioned into a separate specimen container. There were no endobronchial lesions however, mucosa appeared inflamed and easily friable, patient is on min sedation with precedex, cpap trial attempt and later trach collar for 6 min, later the patient was placed again on mechanical ventilation due to agitation and deconditioning, trach collar trial tomorrow again, hb and platelets stable 05/19/25: trach collar trial pm 20 min, then trach collar trial am 6 min, patient was placed on SIMV for 5 min, started to have tachypnea, we will continue exercise, SIMV daily, change kenney, high BPs losartan daily, on extra dose of furosemide, loose stools, metamucil started 05/20/25: patient is having high BPs, entresto and labetalol given, patient still having fevers, micafungin added, thoracentesis done in the left side 900 cc, large amount of respiratory secretions, no SIMV or trach collar trial today Objective vital signs Vital Sign Date Time Temp Pulse Resp B/P (MAP) Pulse Ox O2 Delivery O2 Flow Rate FiO2 05/20/25 15:00 78 18 160/63 (95) 98 05/20/25 14:00 30 05/20/25 14:00 Mechanical Ventilator+ 05/20/25 04:44 100.4 Total Intake and Output 05/19/25 05/19/25 05/20/25 15:00 23:00 07:00 Intake Total 223.925 ml 490 ml 252 ml Output Total 2150 ml 500 ml Balance 223.925 ml -1660 ml -248 ml medications Current Medications Medications Dose Ordered Sig/Jose Alfredo Route Start Time Stop Time Status Last Admin Dose Admin Fentanyl Citrate 250 ml @ 2.5 mls/hr Q24H IV 04/23/25 20:45 05/17/25 12:09 20 MLS/HR Midazolam HCl 50 ml @ 1 mls/hr Q24H IV 04/23/25 23:15 05/16/25 23:03 4 MLS/HR Pantoprazole Sodium 40 mg DAILY IV 04/28/25 10:00 05/20/25 11:26 40 MG Sodium Chloride 10 ml QSHIFT@10,22 IV 05/01/25 10:00 05/20/25 11:26 10 ML Enteral Nutritional Formula 1,000 ml 60ML/HR GT 05/05/25 16:45 05/17/25 22:13 1,000 ML Atropine Sulfate 1 mg UD PRN IV 05/07/25 02:00 Dextrose 50 ml UD PRN IV 05/07/25 18:00 Insulin Human Regular ACHS SC 05/08/25 17:00 05/20/25 06:35 2 UNITS Diagnostic Test (Pha) 1 strip ACHS 05/08/25 17:00 05/20/25 11:30 1 STRIP Norepinephrine Bitartrate 250 ml @ 0.938 mls/ hr Q24H IV 05/14/25 03:45 05/16/25 00:20 0.938 MLS/HR Vancomycin HCl 150 ml @ 100 mls/hr Q12H IV 05/14/25 21:00 UNV Meropenem 50 ml @ 17 mls/hr Q8HR IV 05/14/25 22:00 05/20/25 05:53 17 MLS/HR Furosemide 40 mg DAILY IV 05/16/25 10:00 05/20/25 11:29 40 MG Alprazolam 0.25 mg Q8HP PRN NG 05/15/25 14:45 05/15/25 15:58 0.25 MG Acetaminophen 650 mg Q6HP PRN PO 05/16/25 19:15 05/20/25 03:44 650 MG Psyllium Hydrophilic Mucilloid 1 pkg DAILY PO 05/20/25 10:00 05/20/25 11:31 1 PKG Micafungin Sodium 100 mg/Sodium Chloride 100 ml @ 100 mls/hr DAILY IV 05/21/25 10:00 Sacubitril/ Valsartan 0.5 tab BID PO 05/20/25 22:00 Empaglifozin 10 mg DAILY PO 05/21/25 10:00 Examination General Appearance: TV 450 RR 14 FIO2 30 PEEP 5 HEENT: Atraumatic, PERRLA, EOMI, Mucous membr. moist/pink, the hematoma looks stable but appears to be undergoing resorption, is migrated along the subcutaneous to the back and flanks, tracheostomy functioning Respiratory: Bilateral basal crackles Cardiovascular: rhythmic HR 60-70 Abdominal: Normal bowel sounds, Soft, No tenderness, No hepatospenomegaly, No masses Extremities: PICC line right arm Skin: No rashes, No breakdown, No significant lesion Neurological: patient is alert, interacting with family no agitation laboratory and microbiology Laboratory Tests 05/20/25 02:30 Test 05/20/25 02:30 Range/Units Serum Glucose 112 H 74-106 mg/dL Microbiology Date/Time Source Procedure Growth Status 05/19/25 09:00 Stool Stool Culture - Preliminary Resulted 05/19/25 09:00 Stool Shiga Toxin I & II Pending Resulted 05/16/25 10:50 Bronchial Washings Gram Stain - Final Complete 05/16/25 10:50 Respiratory Culture - Final Yeast, not Reena albicans Complete 05/12/25 12:44 Voided Urine Urine Culture - Final Complete 05/12/25 11:12 Blood Blood Culture - Final NO GROWTH AFTER 5 DAYS OF INCUBATION. Complete 05/03/25 20:20 Trachea Gram Stain - Final Complete 05/03/25 20:20 Respiratory Culture - Final Pseudomonas aeruginosa Complete 04/28/25 12:55 Pleural Fluid Gram Stain - Final Complete 04/28/25 12:55 Pleural Fluid Aerobic Culture - Final Complete Problem List/Assessment/Plan Problem List/Assessment/Plan Neurologic #Acute metabolic encephalopathy due to hypercapnic respiratory failure patient is alert, intercating with family and providers Cardiovascular #Acute exacerbation of heart failure with possible reduced ejection fraction #Septic shock resolved? ECHO EF 25%: severe dilated cavities, LHC no significant CAD Cardiology on board levophed off off dopamine furosemide 40 mg IV + 1 extra dose #Hypertension entresto 1 tab bid labetalol PRN #New onset atrial flutter 2-1 AV conduction with RVR resolved #Possible sick sinus syndrome #Hypertensive emergency resolved #Hypertensive heart disease with systolic failure #sp CVC removal from right brachiocephalic/subclavian artery #neck hematoma #Moderate left and small right pleural effusions with compressive atelectasis hb stable, patient is having a bruise, migrating to the back, no expansive hematoma at the moment 05/05/25: extend discussion with the family today and Dr Kumar IR: positive pressure of the ventilator is helping to control the bleeding, we are going to wait until hematoma is decreasing to do another intervention, possibility of tracheostomy and stent placement were discussed with the family, risk of stroke were discussed, if hb and platelets are stable and if is not active bleeding, expectant management will be carried, there is not expansible hematoma, pseudomonas is growing in new sputum culture, still sensible to zosyn, we are going to restart the feedings, amiodarone once daily, no anticoagulation, levophed 2 mcg 05/06/25: his HR has been into the 40s, possible sick sinus syndrome, amiodarone DC, dopamine fixed dose started, levophed titrate down, T max 100, vancomycin will be started, free water started due to hypernatremia, the ecchymosis is migrating to the lower body, his hb is stable, extensive discussion with the family about the plan 05/07/25: HB 9,.9 plt 98, hematoma at the neck looks bigger, STAT angioct scan was done: showing Large heterogeneous hematoma is seen in the right lower neck which measures 9.9 x 5.9 cm and No evidence of acute arterial extravasation or injury. platelets were given. Case discussed with Dr Fernandez, who stated no need of stent at the moment Na 151 d5w 50cc/h, vancomycin was added 05/11/25: off dopamine, HR 70s, BPs elevated, hb is trending down, platelets normal, extensive discussion with the family held about the need of tracheostomy, surgery consult placed for tracheostomy, stop jardiance, free water, continue furosemide 20 mg daily 05/12/25: off pressors, HR control, hb is trending down, platelets trending high, dr Dorsey stated tracheostomy tomorrow, due to persistent fevers, dc zosyn, add meropenem, new cultures ordered, extensive discussion with family about the need of tracheostomy 05/13/25: tracheostomy was done: The hematoma was entered and retracted laterally. There was some aspiration of old blood with no evidence of ongoing hemorrhage. A size 8 cuffed non-fenestrated tracheostomy tube was placed, patient came back to the unit stable, low dose levophed 05/14/25: we are going to start reduce sedation, ct scan of neck and chest showed Right neck/scapular region hyperdense collection / lesion measuring 10.5 x 5.6 cm, similar to previous examination, likely corresponding to the provided history of hematoma. No definitive arterial extravasation seen. Respiratory #Septic shock #Acute respiratory failure due to COPD exacerbation and heart failure #s/p mechanical ventilation #Respiratory alkalosis #Bilateral pleural effusions L>R at admission: likely parapneumonic Thoracentesis done 1.3 LT drained: exudate #pneumonia gram+/ gram - due to klebsiella pneumoniae and pseudomonas aeruginosa #Severe respiratory acidosis resolved TV 450 RR 16 FIO2 30 PEEP 5 meropenem #SP tracheostomy 05/13/25 #sp bronchoscopy 05/19/25 05/14/25 Moderate left and small right pleural effusions with compressive atelectasis, hb and platelets are trending high, patient is having fevers, we are going to continue high spectrum antibiotics, tracheostomy on place functioning properly 05/15/25: patient is off versed, now on precedex, the idea is to continue decrease sedation, we are going to titrate down precedex drip, start fentanyl patch, tylenol IV and xanax, no need of thoracentesis for now, we are going to increase diuresis, klebsiella and pseudomonas in sputum, sensible to meropenem, hb and platelets trending high 05/18/25: during the weekend, patient had a bronchoscopy There were copious semipurulent secretions in the airways bilaterally that were loosened up with approximately 50 cc of normal saline and thoroughly suctioned into a separate specimen container. There were no endobronchial lesions however, mucosa appeared inflamed and easily friable, patient is on min sedation with precedex, cpap trial attempt and later trach collar for 6 min, later the patient was placed again on mechanical ventilation due to agitation and deconditioning, trach collar trial tomorrow again, hb and platelets stable 05/19/25: trach collar trial pm 20 min, then trach collar trial am 6 min, patient was placed on SIMV for 5 min, started to have tachypnea, we will continue exercise, SIMV daily, change kenney, high BPs losartan daily, on extra dose of furosemide, loose stools, metamucil started, dc vancomycin 05/20/25: patient is having high BPs, entresto and labetalol given, patient still having fevers, micafungin added, thoracentesis done in the left side 900 cc, large amount of respiratory secretions, no SIMV or trach collar trial today Endocrinology #DM type 2, hba1c 6.7 ISS, moderate #Hypernatremia mild monitor Renal #Hyperkalemia, resolved #BAO due to VMN resolved GI tube feedings: continue feedings #Mild Hyperbillirubinemia resolved #Constipation resolved loose stools, metamucil started Hem/onc #Anemia, normochromic, normocytic: 10.4 #Thrombocytopenia resolved: 426 monitor, transfusion of 2 apheresis of platelets previously Lines: PICC line right upper arm 05/01/25 intubation 04/23/25 extubated 05/01/25 reintubated 05/04/25 removed 05/13/25 kenney catheter 04/23/25 tracheostomy tube 05/13/[address] Corrales Full code Time spent on critical care 87 min, including discussion with family excluding procedures No anticoagulation, high risk of bleeding PUD prophylaxis: protonix IV Plan discussed with: Spouse, Daughter My Orders My Orders Orders - MIS REYEZ RESIDENT Procedure Category Date Status Time Chest Xray 1 View XY 05/20/25 Resulted 04:00 Abg W/ Co-Ox RT 05/20/25 Logged 07:00 Chest Portable XY 05/20/25 Resulted 09:39 Thoracentesis US 05/20/25 Resulted Blood Culture BETSY 05/20/25 In Process 11:52 Routine Bacterial BETSY 05/20/25 Logged Culture 13:56 Dietary Evaluation Review Comments: Nutrition Recommendation: 1. TF Vital AF 1.2 Luis Enrique @ 60 ml/hr. start @ 20ml/hr, increase 10ml/hr Q4H until goal is reached. TF at goal volume provides 100% energy & protein needs - 1728 kcal, 108 gm protein, 1168 ml free water 2. Water flush 140ml Q6H if allowed 3. TPN if NPO> 7 days Expected Outcomes/Goals: To meet >75% estimated needs Fu 2-3 days Date of Service: May 20, 2025 Billing Provider: PAMELA CORRALES MD Common Visit Codes: 52394-[id number] CARE 30-74 MIN, [id number] CARE-EACH +30MIN MIS REYEZ May 20, 2025 15:11 PAMELA CORRALES MD May 21, 2025 11:22
[2025-05-20] MEDS: SACUBITRIL-VALSARTAN 24mg/26mg TAB PO SCH (21:14)
[2025-05-21] VITALS (62 sets, daily range): BP systolic 114–176; BP diastolic 50–78; PULSE 60–81; RESP 12–24; TEMP 97.8–99.4; O2SAT 95–100
[2025-05-21] MEDS: LABETALOL HCL 20 MG/4 ML VL IV PRN (00:11)
[2025-05-21 03:10] LABS: Hematocrit 33.8 % (41.0-53.0); Hemoglobin 11.2 g/dL (13.5-17.5); Mean Corpuscular Hemoglobin 30.1 pg (28.0-32.0); Mean Corpuscular Volume 90.9 fL (80.0-100.0); Nucleated Red Blood Cells % 0.0 %
[2025-05-21 03:31] LABS: Alanine Aminotransferase 30 U/L (7-40); Alkaline Phosphatase 87 U/L (46-116); Anion Gap 10 (5-15); BUN/Creatinine Ratio 35.9 (10.0-20.0); Bilirubin, Total 1.1 mg/dL (0.2-1.0); Blood Urea Nitrogen 14 mg/dL (9-23); Carbon Dioxide 27 mmol/L (20-31); Chloride 101 mmol/L (98-107); Magnesium 1.9 mg/dL (1.6-2.6); Sodium 138 mmol/L (136-145); Total Protein 5.8 g/dL (5.7-8.2)
[2025-05-21 03:32] LABS: Albumin 3.1 g/dL (3.2-4.8); Calcium 7.7 mg/dL (8.7-10.4); Glucose 115 mg/dL (74-106); Potassium 3.2 mmol/L (3.5-5.1)
--- NOTE | 2025-05-21 05:28 | DVH ---
CHEST RADIOGRAPH Indication: intubated Technique: Single frontal view of the chest was obtained COMPARISON: XY CHEST PORTABLE on DOS: 05/20/25, XY CHEST PORTABLE on DOS: 05/20/25, XY CHEST XRAY 1 VIE W on DOS: 05/20/25, XY CHEST XRAY 1 VIEW on DOS: 05/19/25, XY CHEST XRAY 1 VIEW on DOS: 05/18/25 FINDINGS: Lines and Tubes: Unchanged. Lungs: Stable appearing right basilar pulmonary airspace disease and small right pleural effusion. No pneumothorax. Cardiomediastinal contours: Unremarkable Bones: Unremarkable IMPRESSION: 1. Stable appearing right basilar pulmonary airspace disease and small right pleural effusion. 2. Lines and tubes unchanged.
[2025-05-21] MEDS: POTASSIUM CHL 20MEQ/100ML 100 ML IV SCH (06:14)
[2025-05-21 08:24] LABS: Base Excess 3.0 mmol/L (-2.0-3.0)
[2025-05-21] MEDS: EMPAGLIFLOZIN 10 MG TAB PO SCH (09:27)
[2025-05-21] MEDS: SACUBITRIL-VALSARTAN 24mg/26mg TAB PO SCH (09:28)
[2025-05-21] MEDS: MICAFUNGIN SODIUM 100 MG in SODIUM CHL 0.9% 100 ML IV SCH (09:30)
[2025-05-21] MEDS: CARVEDILOL 3.125 MG TAB PO ONE (12:01)
[2025-05-21 13:07] LABS: Glucose, Body Fluid 112.0 mg/dL (.); LD, Body Fluid 185.0 IU/L (.)
--- NOTE | 2025-05-21 18:14 | DVHPNRES ---
Progress Note Date Seen: May 21, 2025 Resident Creating Document: MIS REYEZ RESIDENT Has the PT tested + for MRSA If YES, has PT been informed?: No Medical Necessity Reason Pt with a Central, PICC or Fol: Yes The following are medically ne: PICC Line, Kenney Catheter Reason for kenney catheter: Strict I&O Subjective Review of Systems Mr. Farley is a 79-year-old male who presents with a chief complaint of bilateral leg swelling. He reports a chronic history of leg swelling, previously managed with a medication obtained from [place], the name of which he cannot recall. He admits to not taking this medication for some time. The patient is a poor historian but endorses a past medical history of diabetes mellitus (DM), hypertension (HTN), and an unspecified "heart issue." He denies any recent chest pain, shortness of breath, or dizziness. On triage, his blood pressure was markedly elevated at 180/116 mmHg with a pulse of 140 bpm. Given his history and current presentation, differential diagnoses include fluid retention possibly due to cardiac or renal insufficiency, medication noncompliance, electrolyte imbalance, and other systemic causes. Past Medical History diabetes mellitus (DM), hypertension (HTN), and an unspecified "heart issue." Past Surgical History none Family History: None (Noncontributory) Smoke: No ALCOHOL: none Drugs: None Lives: with Family Domestic Violence: Neg 04/23/25: patient was found with high oxygen requirements, respiratory acidosis, BIPAP was placed, POCUS at bedside possible reduced ejection fraction and hypokinesis, patient is having acute respiratory failure due to acute exacerbation of heart failure and COPD, antibiotics and solumedrol were started, mild hypokalemia was resolved with IV insulin 10 ui and furosemide, patient still has HR above 130, carvedilol is added, patient is MARIELENA status 04/24/25: during the night of 04/23/25, patient started to be more hypercapnic and drowsy, not responding to BIPAP, so talking with bhavani family the decision was to intubate, also patient started to be hypotensive with the need of vasopressors, central line was attempted to be placed on right yugular vein but the catheter is found to be entering through the brachiocephalic (innominate) artery with its tip residing in the Aortic arch, AngioCT scan STAT confirmed the findings, general surgery was consulted who advice endovascular stent placement to span the defect in the artery by means of transfemoral arteriography done by Interventional Radiologist, the removal of the catheter was done successfully by Dr José ARZOLA (formal radiological report pending) , right now we are going to f/u hb and bed rest, family was informed about the interventions, consent forms were signed, at the moment on fentanyl and versed drip, levophed 7 mcg, ABG after procedure ph 7.47 pco2 38 po2 69.6 hco3 27.8 ,continue monitor 04/27/25: During the weekend, no bleeding from the puncture site, patient is being on afib, levophed was wean off and phenylephrine was started, also digoxin was on, low dose heparin was started due to high chadvasc. Also sedation vacation was done, but today at 4 am patient started to be agitated. His platelets are 129. Cardiology today, they changed digoxin to amiodarone. Anticoagulation was DC, he will benefit for cath due to EF 25% , possible on sunday, Lipid panel normal. 04/28/25: amiodarone dc by cardiology, off pressors, thoracentesis done, 1.3 LT drained, klebsiella positive in sputum, [facility] tomorrow 04/29/25: off pressors, HR in the 70s, patient was slightly agitated, sedation was increased, vanco dc, [facility] with normal coronaries 04/30/25: off pressors, patient will benefit from cpap trial, precedex am, dc TLC, PICC line consult, cardiology started jardiance and metoprolol 05/01/25: PICC line placed at 7 am, on precedex infusion cpap started at 12: 30 pm ABG: PaFiO2 271, patient had an episode of agitation HR went up to 170s, afib with RVR, amiodarone drip was ordered, but after the agitation episode resolves, HR went down, right now patient is calm, extubated at 2 pm. 05/02/25: extubated, repleted K, agitated, adding Seroquel. pending bedside swallow, off pressors 05/03/25: bruise on neck expanding, hb drop. sending for CT, start oral feeding, holding lasix for now, increasing GDMT. avoid CCB. CT showed active bleeding, decision to transfer [facility] for CT/vasc. ss consult placed. trend HH. patient was intubated for airway protection 05/04/25: patient was seen by IR, neck angiogram done with active bleeding stopped. pressor low dose likely sedation related. c/w to trend h/h. plt >100, given vit k. 05/05/25: extend discussion with the family today and Dr Kumar IR: positive pressure of the ventilator is helping to control the bleeding, we are going to wait until hematoma is decreasing to do another intervention, possibility of tracheostomy and stent placement were discussed with the family, risk of stroke were discussed, if hb and platelets are stable and if is not active bleeding expectant management will be done, there is not expansible hematoma, pseudomonas is growing in new sputum culture, still sensible to zosyn, we are going to restart the feedings, amiodarone once daily, no anticoagulation, levophed 2 mcg 05/06/25: his HR has been into the 40s, possible sick sinus syndrome, amiodarone DC, dopamine fixed dose started, levophed titrate down, T max 100, vancomycin will be started, free water started due to hypernatremia, the ecchymosis is migrating to the lower body, his hb is stable, extensive discussion with the family about the plan, 05/07/25: HB 9,.9 plt 98, hematoma at the neck looks bigger, STAT angioct scan was done: showing Large heterogeneous hematoma is seen in the right lower neck which measures 9.9 x 5.9 cm and No evidence of acute arterial extravasation or injury. platelets were given. Case discussed with Dr Fernandez, who stated no need of stent at the moment Na 151 d5w 50cc/h, vancomycin was added 05/08/25: hb 10 plat 109 --> 98, new apheresis of platelets given, Na 145, dc d5w, HR is trending slowly higher, we are going to continue dopamine fixed dose, but the risk of going back to afib exist, levophed 1 mcg, IR, Dr Fernandez, came at bedside, explained to the family that in case of active bleeding stent will be placed and the risk of adverse events is about 15-20% (stroke, stent thrombosis), also the possibility of tracheostomy is on the table if hematoma is not subsiding. Bag of 5 pounds is on the hematoma to help with resorption 05/09-initially here for pneumonia. Central line was tried for Levophed which was inadvertently inserted into brachiocephalic CBC, which led to bleed evaluated by IR concluded as controlled bleed likely hematoma. Area is marked there is some mild increase in ecchymosis on right neck but not significant from marked area. Fecal not repeat imaging today. Also having thrombocytopenia stable today at 1:10 a.m.. We will transfuse if platelets below 100. We will continue primary team's plan no sedation vacations/CPAP trial over the weekend. Patient bradycardic currently on Levophed 0.5 dopamine drip to. Other drips include Versed, fentanyl, antibiotics Zosyn. Patient getting enteral feeds OG tube with free water flushes. Ventilated a.c. 16/450/30%/8.0. Breath sounds bilateral, bradycardic on exam, no edema, pulses present, hematoma right shoulder acknowledged. We will continue to monitor. 05/10/25---right shoulder hematoma/ecchymosis again a little increased in size but hemoglobin stable, platelets stable hemodynamics stable. We will defer imaging to tomorrow to primary. Vitals stable heart rate over 60. Labs more than 70,. Pulmonology wanted to try to wean, we will communicate to nurse to inform pulmonology primary team advised against weaning trials over the weekend. Drips include Versed 5, fentanyl 175, dopa to.. Vent a.c. 16/4 50/30%/8.0. Bowel movements 3 overnight, urine output adequate. We will continue primary team's management. 05/11/25: off dopamine, HR 70s, BPs elevated, hb is trending down, platelets normal, extensive discussion with the family held about the need of tracheostomy, surgery consult placed for tracheostomy, stop jardiance, free water, continue furosemide 20 mg daily 05/12/25: off pressors, HR control, hb is trending down, platelets trending high, dr Dorsey stated tracheostomy tomorrow, due to persistent fevers, dc zosyn, add meropenem, new cultures ordered, extensive discussion with family about the need of tracheostomy 05/13/25: tracheostomy was done: The hematoma was entered and retracted laterally. There was some aspiration of old blood with no evidence of ongoing hemorrhage. A size 8 cuffed non-fenestrated tracheostomy tube was placed, patient came back to the unit stable 05/14/25: we are going to start reduce sedation, ct scan of neck and chest showed Right neck/scapular region hyperdense collection / lesion measuring 10.5 x 5.6 cm, similar to previous examination, likely corresponding to the provided history of hematoma. No definitive arterial extravasation seen. Moderate left and small right pleural effusions with compressive atelectasis, hb and platelets are trending high, patient is having fevers, we are going to continue high spectrum antibiotics, tracheostomy on place functioning properly 05/15/25: patient is off versed, now on precedex, the idea is to continue decrease sedation, we are going to titrate down precedex drip, start fentanyl patch, tylenol IV and xanax, no need of thoracentesis for now, we are going to increase diuresis, klebsiella and pseudomona in sputum, sensible to meropenem, hb and platelets trending high 05/18/25: during the weekend, patient had a bronchoscopy There were copious semipurulent secretions in the airways bilaterally that were loosened up with approximately 50 cc of normal saline and thoroughly suctioned into a separate specimen container. There were no endobronchial lesions however, mucosa appeared inflamed and easily friable, patient is on min sedation with precedex, cpap trial attempt and later trach collar for 6 min, later the patient was placed again on mechanical ventilation due to agitation and deconditioning, trach collar trial tomorrow again, hb and platelets stable 05/19/25: trach collar trial pm 20 min, then trach collar trial am 6 min, patient was placed on SIMV for 5 min, started to have tachypnea, we will continue exercise, SIMV daily, change kenney, high BPs losartan daily, on extra dose of furosemide, loose stools, metamucil started 05/20/25: patient is having high BPs, entresto and labetalol given, patient still having fevers, micafungin added, thoracentesis done in the left side 900 cc, large amount of respiratory secretions, no SIMV or trach collar trial today 05/21/25: SIMV daily, patient tolerates sitting down for couple of minutes, no collar trial today, carvedilol low dose started, GDMT will be started slowly, no fevers Objective vital signs Vital Sign Date Time Temp Pulse Resp B/P (MAP) Pulse Ox O2 Delivery O2 Flow Rate FiO2 05/21/25 18:01 69 15 163/67 (99) 100 30 05/21/25 18:00 Mechanical Ventilator+ 05/21/25 16:00 97.8 97.8 Total Intake and Output 05/20/25 05/20/25 05/21/25 15:00 23:00 07:00 Intake Total 50 ml 161 ml 310 ml Output Total 1800 ml 400 ml Balance 50 ml -1639 ml -90 ml medications Current Medications Medications Dose Ordered Sig/Jose Alfredo Route Start Time Stop Time Status Last Admin Dose Admin Fentanyl Citrate 250 ml @ 2.5 mls/hr Q24H IV 04/23/25 20:45 05/17/25 12:09 20 MLS/HR Midazolam HCl 50 ml @ 1 mls/hr Q24H IV 04/23/25 23:15 05/16/25 23:03 4 MLS/HR Pantoprazole Sodium 40 mg DAILY IV 04/28/25 10:00 05/21/25 09:27 40 MG Sodium Chloride 10 ml QSHIFT@10,22 IV 05/01/25 10:00 05/21/25 09:27 10 ML Enteral Nutritional Formula 1,000 ml 60ML/HR GT 05/05/25 16:45 05/17/25 22:13 1,000 ML Atropine Sulfate 1 mg UD PRN IV 05/07/25 02:00 Dextrose 50 ml UD PRN IV 05/07/25 18:00 Insulin Human Regular ACHS SC 05/08/25 17:00 05/21/25 12:00 2 UNITS Diagnostic Test (Pha) 1 strip ACHS 05/08/25 17:00 05/21/25 16:31 1 STRIP Vancomycin HCl 150 ml @ 100 mls/hr Q12H IV 05/14/25 21:00 UNV Meropenem 50 ml @ 17 mls/hr Q8HR IV 05/14/25 22:00 05/21/25 13:36 17 MLS/HR Furosemide 40 mg DAILY IV 05/16/25 10:00 05/21/25 09:27 40 MG Alprazolam 0.25 mg Q8HP PRN NG 05/15/25 14:45 05/21/25 09:28 0.25 MG Acetaminophen 650 mg Q6HP PRN PO 05/16/25 19:15 05/21/25 17:52 650 MG Psyllium Hydrophilic Mucilloid 1 pkg DAILY PO 05/20/25 10:00 05/21/25 09:30 1 PKG Micafungin Sodium 100 mg/Sodium Chloride 100 ml @ 100 mls/hr DAILY IV 05/21/25 10:00 05/21/25 09:30 100 MLS/HR Empaglifozin 10 mg DAILY PO 05/21/25 10:00 05/21/25 09:27 10 MG Labetalol HCl 5 mg Q2HPRN PRN IV 05/20/25 16:45 05/21/25 16:25 5 MG Sacubitril/ Valsartan 1 tab BID PO 05/21/25 10:00 05/21/25 09:28 1 TAB Carvedilol 3.125 mg Q12HR PO 05/21/25 22:00 Examination General Appearance: TV 450 RR 14 FIO2 30 PEEP 5 - VC/AC HEENT: Atraumatic, PERRLA, EOMI, Mucous membr. moist/pink, the hematoma looks stable but appears to be undergoing resorption, is migrated along the subcutaneous to the back and flanks, tracheostomy functioning Respiratory: Bilateral basal crackles Cardiovascular: rhythmic HR 60-70 Abdominal: Normal bowel sounds, Soft, No tenderness, No hepatospenomegaly, No masses Extremities: PICC line right arm Skin: No rashes, No breakdown, No significant lesion Neurological: patient is alert, interacting with family no agitation laboratory and microbiology Laboratory Tests 05/21/25 02:30 Test 05/21/25 02:30 Range/Units Serum Glucose 115 H 74-106 mg/dL Microbiology Date/Time Source Procedure Growth Status 05/20/25 12:10 Blood Blood Culture - Preliminary NO GROWTH AFTER 24 HOURS OF INCUBATION. Resulted 05/20/25 12:05 Pleural Fluid Gram Stain - Final Resulted 05/20/25 12:05 Pleural Fluid Aerobic Culture - Preliminary Resulted 05/19/25 09:00 Stool Stool Culture - Preliminary Resulted 05/19/25 09:00 Stool Shiga Toxin I & II - Final Resulted 05/16/25 10:50 Bronchial Washings Gram Stain - Final Complete 05/16/25 10:50 Respiratory Culture - Final Yeast, not Reena albicans Complete 05/12/25 12:44 Voided Urine Urine Culture - Final Complete 05/03/25 20:20 Trachea Gram Stain - Final Complete 05/03/25 20:20 Respiratory Culture - Final Pseudomonas aeruginosa Complete Problem List/Assessment/Plan Problem List/Assessment/Plan Neurologic #Acute metabolic encephalopathy due to hypercapnic respiratory failure patient is alert, intercating with family and providers Cardiovascular #Acute exacerbation of heart failure with possible reduced ejection fraction #Septic shock resolved? #Hypertension ECHO EF 25%: severe dilated cavities, LHC no significant CAD Cardiology on board levophed off off dopamine furosemide 40 mg IV entresto 1 tab bid carvedilol 3.125 bid labetalol PRN #New onset atrial flutter 2-1 AV conduction with RVR resolved #Possible sick sinus syndrome #Hypertensive emergency resolved #Hypertensive heart disease with systolic failure #sp CVC removal from right brachiocephalic/subclavian artery #neck hematoma #Moderate left and small right pleural effusions with compressive atelectasis hb stable, patient is having a bruise, migrating to the back, no expansive hematoma at the moment 05/05/25: extend discussion with the family today and Dr Kumar IR: positive pressure of the ventilator is helping to control the bleeding, we are going to wait until hematoma is decreasing to do another intervention, possibility of tracheostomy and stent placement were discussed with the family, risk of stroke were discussed, if hb and platelets are stable and if is not active bleeding, expectant management will be carried, there is not expansible hematoma, pseudomonas is growing in new sputum culture, still sensible to zosyn, we are going to restart the feedings, amiodarone once daily, no anticoagulation, levophed 2 mcg 05/06/25: his HR has been into the 40s, possible sick sinus syndrome, amiodarone DC, dopamine fixed dose started, levophed titrate down, T max 100, vancomycin will be started, free water started due to hypernatremia, the ecchymosis is migrating to the lower body, his hb is stable, extensive discussion with the family about the plan 05/07/25: HB 9,.9 plt 98, hematoma at the neck looks bigger, STAT angioct scan was done: showing Large heterogeneous hematoma is seen in the right lower neck which measures 9.9 x 5.9 cm and No evidence of acute arterial extravasation or injury. platelets were given. Case discussed with Dr Fernandez, who stated no need of stent at the moment Na 151 d5w 50cc/h, vancomycin was added 05/11/25: off dopamine, HR 70s, BPs elevated, hb is trending down, platelets normal, extensive discussion with the family held about the need of tracheostomy, surgery consult placed for tracheostomy, stop jardiance, free water, continue furosemide 20 mg daily 05/12/25: off pressors, HR control, hb is trending down, platelets trending high, dr Dorsey stated tracheostomy tomorrow, due to persistent fevers, dc zosyn, add meropenem, new cultures ordered, extensive discussion with family about the need of tracheostomy 05/13/25: tracheostomy was done: The hematoma was entered and retracted laterally. There was some aspiration of old blood with no evidence of ongoing hemorrhage. A size 8 cuffed non-fenestrated tracheostomy tube was placed, patient came back to the unit stable, low dose levophed 05/14/25: we are going to start reduce sedation, ct scan of neck and chest showed Right neck/scapular region hyperdense collection / lesion measuring 10.5 x 5.6 cm, similar to previous examination, likely corresponding to the provided history of hematoma. No definitive arterial extravasation seen. Respiratory #Septic shock #Acute respiratory failure due to COPD exacerbation and heart failure #s/p mechanical ventilation #Respiratory alkalosis #Bilateral pleural effusions L>R at admission: likely parapneumonic Thoracentesis done 1.3 LT drained: exudate #pneumonia gram+/ gram - due to klebsiella pneumoniae and pseudomonas aeruginosa #Severe respiratory acidosis resolved TV 450 RR 16 FIO2 30 PEEP 5 meropenem #SP tracheostomy 05/13/25 #sp bronchoscopy 05/19/25 05/14/25 Moderate left and small right pleural effusions with compressive atelectasis, hb and platelets are trending high, patient is having fevers, we are going to continue high spectrum antibiotics, tracheostomy on place functioning properly 05/15/25: patient is off versed, now on precedex, the idea is to continue decrease sedation, we are going to titrate down precedex drip, start fentanyl patch, tylenol IV and xanax, no need of thoracentesis for now, we are going to increase diuresis, klebsiella and pseudomonas in sputum, sensible to meropenem, hb and platelets trending high 05/18/25: during the weekend, patient had a bronchoscopy There were copious semipurulent secretions in the airways bilaterally that were loosened up with approximately 50 cc of normal saline and thoroughly suctioned into a separate specimen container. There were no endobronchial lesions however, mucosa appeared inflamed and easily friable, patient is on min sedation with precedex, cpap trial attempt and later trach collar for 6 min, later the patient was placed again on mechanical ventilation due to agitation and deconditioning, trach collar trial tomorrow again, hb and platelets stable 05/19/25: trach collar trial pm 20 min, then trach collar trial am 6 min, patient was placed on SIMV for 5 min, started to have tachypnea, we will continue exercise, SIMV daily, change kenney, high BPs losartan daily, on extra dose of furosemide, loose stools, metamucil started, dc vancomycin 05/20/25: patient is having high BPs, entresto and labetalol given, patient still having fevers, micafungin added, thoracentesis done in the left side 900 cc, large amount of respiratory secretions, no SIMV or trach collar trial today 05/21/25: SIMV daily, patient tolerates sitting down for couple of minutes, no collar trial today, carvedilol low dose started, GDMT will be started slowly, no fevers Endocrinology #DM type 2, hba1c 6.7 ISS, moderate #Hypernatremia mild monitor Renal #Hyperkalemia, resolved #BAO due to VMN resolved GI tube feedings: continue feedings #Mild Hyperbillirubinemia resolved #Constipation resolved more solid stools Hem/onc #Anemia, normochromic, normocytic: 10.4 #Thrombocytopenia resolved: 426 monitor, transfusion of 2 apheresis of platelets previously Lines: PICC line right upper arm 05/01/25 intubation 04/23/25 extubated 05/01/25 reintubated 05/04/25 removed 05/13/25 kenney catheter 04/23/25 tracheostomy tube 05/13/[address] Corrales Full code Time spent on critical care 84 min, including discussion with family excluding procedures No anticoagulation, high risk of bleeding PUD prophylaxis: protonix IV Plan discussed with: Spouse, Daughter My Orders My Orders Orders - MIS REYEZ RESIDENT Procedure Category Date Status Time Sacubitril-Valsartan PHA 05/21/25 In Process (Entresto 24-26 Mg 10:00 Pt Request For Service PT 05/21/25 Logged 10:39 Complete Blood Count LAB 05/22/25 Verified 04:00 Comprehensive LAB 05/22/25 Verified Metabolic Panel 04:00 Chest Xray 1 View XY 05/22/25 Logged 04:00 Abg W/ Co-Ox RT 05/22/25 Logged 04:00 Dietary Evaluation Review Comments: Nutrition Recommendation: 1. TF Vital AF 1.2 Luis Enrique @ 60 ml/hr. start @ 20ml/hr, increase 10ml/hr Q4H until goal is reached. TF at goal volume provides 100% energy & protein needs - 1728 kcal, 108 gm protein, 1168 ml free water 2. Water flush 140ml Q6H if allowed 3. TPN if NPO> 7 days Expected Outcomes/Goals: To meet >75% estimated needs Fu 2-3 days Date of Service: May 21, 2025 Billing Provider: PAMELA CORRALES MD Common Visit Codes: 98404-[id number] CARE 30-74 MIN, 88262-[id number] CARE-EACH +30MIN MIS REYEZ RESIDENT May 21, 2025 18:14 PAMELA CORRALES MD May 23, 2025 12:51
[2025-05-21] MEDS: CARVEDILOL 3.125 MG TAB PO SCH (21:56)
[2025-05-22] VITALS (34 sets, daily range): BP systolic 96–169; BP diastolic 42–74; PULSE 60–79; RESP 10–24; TEMP 98.2–99.2; O2SAT 94–100
[2025-05-22 04:01] LABS: Hematocrit 33.1 % (41.0-53.0); Hemoglobin 11.1 g/dL (13.5-17.5); Mean Corpuscular Hemoglobin 30.6 pg (28.0-32.0); Mean Corpuscular Volume 91.4 fL (80.0-100.0); Nucleated Red Blood Cells % 0.2 %
[2025-05-22 04:13] LABS: Alanine Aminotransferase 28 U/L (7-40); Alkaline Phosphatase 83 U/L (46-116); Anion Gap 7 (5-15); BUN/Creatinine Ratio 43.5 (10.0-20.0); Bilirubin, Total 0.9 mg/dL (0.2-1.0); Blood Urea Nitrogen 20 mg/dL (9-23); Carbon Dioxide 29 mmol/L (20-31); Chloride 103 mmol/L (98-107); Potassium 3.6 mmol/L (3.5-5.1); Sodium 139 mmol/L (136-145); Total Protein 5.7 g/dL (5.7-8.2)
[2025-05-22 04:25] LABS: Albumin 3.1 g/dL (3.2-4.8); Calcium 7.8 mg/dL (8.7-10.4); Glucose 136 mg/dL (74-106)
--- NOTE | 2025-05-22 05:26 | DVH ---
CHEST RADIOGRAPH Indication: pneumonia Technique: Single frontal view of the chest was obtained COMPARISON: XY CHEST XRAY 1 VIEW on DOS: 05/21/25, XY CHEST PORTABLE on DOS: 05/20/25, XY CHEST PORTABL E on DOS: 05/20/25, XY CHEST XRAY 1 VIEW on DOS: 05/20/25, XY CHEST XRAY 1 VIEW on DOS: 05/19/25 FINDINGS: Lines and Tubes: Unchanged. Lungs: Stable mild right basilar pulmonary airspace disease and small right pleural effusion. No pneumothorax. Cardiomediastinal contours: Unremarkable Bones: Unremarkable IMPRESSION: 1. Stable appearing right basilar pulmonary airspace disease and small right pleural effusion. 2. Lines and tubes unchanged.
[2025-05-22 06:29] LABS: Base Excess 2.6 mmol/L (-2.0-3.0)
--- NOTE | 2025-05-22 12:54 | DVHPNRES ---
Progress Note Date Seen: May 22, 2025 Resident Creating Document: MIS REYEZ RESIDENT Has the PT tested + for MRSA If YES, has PT been informed?: No Medical Necessity Reason Pt with a Central, PICC or Fol: Yes The following are medically ne: PICC Line, Kenney Catheter Reason for kenney catheter: Strict I&O Subjective Review of Systems Mr. Farley is a 79-year-old male who presents with a chief complaint of bilateral leg swelling. He reports a chronic history of leg swelling, previously managed with a medication obtained from [facility], the name of which he cannot recall. He admits to not taking this medication for some time. The patient is a poor historian but endorses a past medical history of diabetes mellitus (DM), hypertension (HTN), and an unspecified "heart issue." He denies any recent chest pain, shortness of breath, or dizziness. On triage, his blood pressure was markedly elevated at 180/116 mmHg with a pulse of 140 bpm. Given his history and current presentation, differential diagnoses include fluid retention possibly due to cardiac or renal insufficiency, medication noncompliance, electrolyte imbalance, and other systemic causes. Past Medical History diabetes mellitus (DM), hypertension (HTN), and an unspecified "heart issue." Past Surgical History none Family History: None (Noncontributory) Smoke: No ALCOHOL: none Drugs: None Lives: with Family Domestic Violence: Neg 04/23/25: patient was found with high oxygen requirements, respiratory acidosis, BIPAP was placed, POCUS at bedside possible reduced ejection fraction and hypokinesis, patient is having acute respiratory failure due to acute exacerbation of heart failure and COPD, antibiotics and solumedrol were started, mild hypokalemia was resolved with IV insulin 10 ui and furosemide, patient still has HR above 130, carvedilol is added, patient is MARIELENA status 04/24/25: during the night of 04/23/25, patient started to be more hypercapnic and drowsy, not responding to BIPAP, so talking with bhavani family the decision was to intubate, also patient started to be hypotensive with the need of vasopressors, central line was attempted to be placed on right yugular vein but the catheter is found to be entering through the brachiocephalic (innominate) artery with its tip residing in the Aortic arch, AngioCT scan STAT confirmed the findings, general surgery was consulted who advice endovascular stent placement to span the defect in the artery by means of transfemoral arteriography done by Interventional Radiologist, the removal of the catheter was done successfully by Dr José ARZOLA (formal radiological report pending) , right now we are going to f/u hb and bed rest, family was informed about the interventions, consent forms were signed, at the moment on fentanyl and versed drip, levophed 7 mcg, ABG after procedure ph 7.47 pco2 38 po2 69.6 hco3 27.8 ,continue monitor 04/27/25: During the weekend, no bleeding from the puncture site, patient is being on afib, levophed was wean off and phenylephrine was started, also digoxin was on, low dose heparin was started due to high chadvasc. Also sedation vacation was done, but today at 4 am patient started to be agitated. His platelets are 129. Cardiology today, they changed digoxin to amiodarone. Anticoagulation was DC, he will benefit for cath due to EF 25% , possible on sunday, Lipid panel normal. 04/28/25: amiodarone dc by cardiology, off pressors, thoracentesis done, 1.3 LT drained, klebsiella positive in sputum, [facility] tomorrow 04/29/25: off pressors, HR in the 70s, patient was slightly agitated, sedation was increased, vanco dc, [facility] with normal coronaries 04/30/25: off pressors, patient will benefit from cpap trial, precedex am, dc TLC, PICC line consult, cardiology started jardiance and metoprolol 05/01/25: PICC line placed at 7 am, on precedex infusion cpap started at 12: 30 pm ABG: PaFiO2 271, patient had an episode of agitation HR went up to 170s, afib with RVR, amiodarone drip was ordered, but after the agitation episode resolves, HR went down, right now patient is calm, extubated at 2 pm. 05/02/25: extubated, repleted K, agitated, adding Seroquel. pending bedside swallow, off pressors 05/03/25: bruise on neck expanding, hb drop. sending for CT, start oral feeding, holding lasix for now, increasing GDMT. avoid CCB. CT showed active bleeding, decision to transfer [facility] for CT/vasc. ss consult placed. trend HH. patient was intubated for airway protection 05/04/25: patient was seen by IR, neck angiogram done with active bleeding stopped. pressor low dose likely sedation related. c/w to trend h/h. plt >100, given vit k. 05/05/25: extend discussion with the family today and Dr Kumar IR: positive pressure of the ventilator is helping to control the bleeding, we are going to wait until hematoma is decreasing to do another intervention, possibility of tracheostomy and stent placement were discussed with the family, risk of stroke were discussed, if hb and platelets are stable and if is not active bleeding expectant management will be done, there is not expansible hematoma, pseudomonas is growing in new sputum culture, still sensible to zosyn, we are going to restart the feedings, amiodarone once daily, no anticoagulation, levophed 2 mcg 05/06/25: his HR has been into the 40s, possible sick sinus syndrome, amiodarone DC, dopamine fixed dose started, levophed titrate down, T max 100, vancomycin will be started, free water started due to hypernatremia, the ecchymosis is migrating to the lower body, his hb is stable, extensive discussion with the family about the plan, 05/07/25: HB 9,.9 plt 98, hematoma at the neck looks bigger, STAT angioct scan was done: showing Large heterogeneous hematoma is seen in the right lower neck which measures 9.9 x 5.9 cm and No evidence of acute arterial extravasation or injury. platelets were given. Case discussed with Dr Fernandez, who stated no need of stent at the moment Na 151 d5w 50cc/h, vancomycin was added 05/08/25: hb 10 plat 109 --> 98, new apheresis of platelets given, Na 145, dc d5w, HR is trending slowly higher, we are going to continue dopamine fixed dose, but the risk of going back to afib exist, levophed 1 mcg, IR, Dr Fernandez, came at bedside, explained to the family that in case of active bleeding stent will be placed and the risk of adverse events is about 15-20% (stroke, stent thrombosis), also the possibility of tracheostomy is on the table if hematoma is not subsiding. Bag of 5 pounds is on the hematoma to help with resorption 05/09-initially here for pneumonia. Central line was tried for Levophed which was inadvertently inserted into brachiocephalic CBC, which led to bleed evaluated by IR concluded as controlled bleed likely hematoma. Area is marked there is some mild increase in ecchymosis on right neck but not significant from marked area. Fecal not repeat imaging today. Also having thrombocytopenia stable today at 1:10 a.m.. We will transfuse if platelets below 100. We will continue primary team's plan no sedation vacations/CPAP trial over the weekend. Patient bradycardic currently on Levophed 0.5 dopamine drip to. Other drips include Versed, fentanyl, antibiotics Zosyn. Patient getting enteral feeds OG tube with free water flushes. Ventilated a.c. 16/450/30%/8.0. Breath sounds bilateral, bradycardic on exam, no edema, pulses present, hematoma right shoulder acknowledged. We will continue to monitor. 05/10/25---right shoulder hematoma/ecchymosis again a little increased in size but hemoglobin stable, platelets stable hemodynamics stable. We will defer imaging to tomorrow to primary. Vitals stable heart rate over 60. Labs more than 70,. Pulmonology wanted to try to wean, we will communicate to nurse to inform pulmonology primary team advised against weaning trials over the weekend. Drips include Versed 5, fentanyl 175, dopa to.. Vent a.c. 16/4 50/30%/8.0. Bowel movements 3 overnight, urine output adequate. We will continue primary team's management. 05/11/25: off dopamine, HR 70s, BPs elevated, hb is trending down, platelets normal, extensive discussion with the family held about the need of tracheostomy, surgery consult placed for tracheostomy, stop jardiance, free water, continue furosemide 20 mg daily 05/12/25: off pressors, HR control, hb is trending down, platelets trending high, dr Dorsey stated tracheostomy tomorrow, due to persistent fevers, dc zosyn, add meropenem, new cultures ordered, extensive discussion with family about the need of tracheostomy 05/13/25: tracheostomy was done: The hematoma was entered and retracted laterally. There was some aspiration of old blood with no evidence of ongoing hemorrhage. A size 8 cuffed non-fenestrated tracheostomy tube was placed, patient came back to the unit stable 05/14/25: we are going to start reduce sedation, ct scan of neck and chest showed Right neck/scapular region hyperdense collection / lesion measuring 10.5 x 5.6 cm, similar to previous examination, likely corresponding to the provided history of hematoma. No definitive arterial extravasation seen. Moderate left and small right pleural effusions with compressive atelectasis, hb and platelets are trending high, patient is having fevers, we are going to continue high spectrum antibiotics, tracheostomy on place functioning properly 05/15/25: patient is off versed, now on precedex, the idea is to continue decrease sedation, we are going to titrate down precedex drip, start fentanyl patch, tylenol IV and xanax, no need of thoracentesis for now, we are going to increase diuresis, klebsiella and pseudomona in sputum, sensible to meropenem, hb and platelets trending high 05/18/25: during the weekend, patient had a bronchoscopy There were copious semipurulent secretions in the airways bilaterally that were loosened up with approximately 50 cc of normal saline and thoroughly suctioned into a separate specimen container. There were no endobronchial lesions however, mucosa appeared inflamed and easily friable, patient is on min sedation with precedex, cpap trial attempt and later trach collar for 6 min, later the patient was placed again on mechanical ventilation due to agitation and deconditioning, trach collar trial tomorrow again, hb and platelets stable 05/19/25: trach collar trial pm 20 min, then trach collar trial am 6 min, patient was placed on SIMV for 5 min, started to have tachypnea, we will continue exercise, SIMV daily, change kenney, high BPs losartan daily, on extra dose of furosemide, loose stools, metamucil started 05/20/25: patient is having high BPs, entresto and labetalol given, patient still having fevers, micafungin added, thoracentesis done in the left side 900 cc, large amount of respiratory secretions, no SIMV or trach collar trial today 05/21/25: SIMV daily, patient tolerates sitting down for couple of minutes, no collar trial today, carvedilol low dose started, GDMT will be started slowly, no fevers 05/22/25: SIMV mode, RR can be 8 tomorrow, PS 8 also, patient tolerate collar trial for 10 min, no fevers. Objective vital signs Vital Sign Date Time Temp Pulse Resp B/P (MAP) Pulse Ox O2 Delivery O2 Flow Rate FiO2 05/22/25 12:15 63 22 134/53 (80) 100 30 05/22/25 12:00 Mechanical Ventilator+ 05/22/25 10:50 12 05/22/25 09:00 98.2 98.2 Total Intake and Output 05/21/25 05/21/25 05/22/25 15:00 23:00 07:00 Intake Total 234 ml 306 ml 837 ml Output Total 1600 ml 850 ml Balance 234 ml -1294 ml -13 ml medications Current Medications Medications Dose Ordered Sig/Jose Alfredo Route Start Time Stop Time Status Last Admin Dose Admin Midazolam HCl 50 ml @ 1 mls/hr Q24H IV 04/23/25 23:15 05/16/25 23:03 4 MLS/HR Pantoprazole Sodium 40 mg DAILY IV 04/28/25 10:00 05/22/25 09:38 40 MG Sodium Chloride 10 ml QSHIFT@10,22 IV 05/01/25 10:00 05/22/25 09:39 10 ML Enteral Nutritional Formula 1,000 ml 60ML/HR GT 05/05/25 16:45 05/21/25 22:04 1,000 ML Atropine Sulfate 1 mg UD PRN IV 05/07/25 02:00 Dextrose 50 ml UD PRN IV 05/07/25 18:00 Insulin Human Regular ACHS SC 05/08/25 17:00 05/22/25 11:21 2 UNITS Diagnostic Test (Pha) 1 strip ACHS 05/08/25 17:00 05/22/25 11:16 1 STRIP Vancomycin HCl 150 ml @ 100 mls/hr Q12H IV 05/14/25 21:00 UNV Meropenem 50 ml @ 17 mls/hr Q8HR IV 05/14/25 22:00 05/22/25 06:11 17 MLS/HR Furosemide 40 mg DAILY IV 05/16/25 10:00 05/22/25 09:39 40 MG Alprazolam 0.25 mg Q8HP PRN NG 05/15/25 14:45 05/22/25 01:47 0.25 MG Acetaminophen 650 mg Q6HP PRN PO 05/16/25 19:15 05/21/25 17:52 650 MG Psyllium Hydrophilic Mucilloid 1 pkg DAILY PO 05/20/25 10:00 05/22/25 09:40 1 PKG Micafungin Sodium 100 mg/Sodium Chloride 100 ml @ 100 mls/hr DAILY IV 05/21/25 10:00 05/22/25 09:39 100 MLS/HR Empaglifozin 10 mg DAILY PO 05/21/25 10:00 05/22/25 09:39 10 MG Labetalol HCl 5 mg Q2HPRN PRN IV 05/20/25 16:45 05/21/25 16:25 5 MG Sacubitril/ Valsartan 1 tab BID PO 05/21/25 10:00 05/22/25 09:39 1 TAB Carvedilol 3.125 mg Q12HR PO 05/21/25 22:00 05/22/25 09:39 3.125 MG Examination General Appearance: HEENT: Atraumatic, PERRLA, EOMI, Mucous membr. moist/pink, the hematoma looks stable but appears to be undergoing resorption, is migrated along the subcutaneous to the back and flanks, tracheostomy functioning Respiratory: Bilateral basal crackles Cardiovascular: rhythmic HR 60-70 Abdominal: Normal bowel sounds, Soft, No tenderness, No hepatospenomegaly, No masses Extremities: PICC line right arm Skin: No rashes, No breakdown, No significant lesion Neurological: patient is alert, interacting with family no agitation laboratory and microbiology Laboratory Tests 05/22/25 03:00 Test 05/22/25 03:00 Range/Units Serum Glucose 136 H 74-106 mg/dL Microbiology Date/Time Source Procedure Growth Status 05/20/25 12:10 Blood Blood Culture - Preliminary NO GROWTH AFTER 48 HOURS OF INCUBATION. Resulted 05/20/25 12:05 Pleural Fluid Gram Stain - Final Resulted 05/20/25 12:05 Pleural Fluid Aerobic Culture - Preliminary Resulted 05/19/25 09:00 Stool Stool Culture - Preliminary Resulted 05/19/25 09:00 Stool Shiga Toxin I & II - Final Resulted 05/16/25 10:50 Bronchial Washings Gram Stain - Final Complete 05/16/25 10:50 Respiratory Culture - Final Yeast, not Reena albicans Complete 05/12/25 12:44 Voided Urine Urine Culture - Final Complete 05/03/25 20:20 Trachea Gram Stain - Final Complete 05/03/25 20:20 Respiratory Culture - Final Pseudomonas aeruginosa Complete Problem List/Assessment/Plan Problem List/Assessment/Plan Neurologic #Acute metabolic encephalopathy due to hypercapnic respiratory failure patient is alert, intercating with family and providers Cardiovascular #Acute exacerbation of heart failure with possible reduced ejection fraction #Septic shock resolved? #Hypertension ECHO EF 25%: severe dilated cavities, LHC no significant CAD Cardiology on board levophed off off dopamine furosemide 40 mg IV entresto 1 tab bid carvedilol 3.125 bid labetalol PRN #New onset atrial flutter 2-1 AV conduction with RVR resolved #Possible sick sinus syndrome #Hypertensive emergency resolved #Hypertensive heart disease with systolic failure #sp CVC removal from right brachiocephalic/subclavian artery #neck hematoma #Moderate left and small right pleural effusions with compressive atelectasis hb stable, patient is having a bruise, migrating to the back, no expansive hematoma at the moment 05/05/25: extend discussion with the family today and Dr Kumar IR: positive pressure of the ventilator is helping to control the bleeding, we are going to wait until hematoma is decreasing to do another intervention, possibility of tracheostomy and stent placement were discussed with the family, risk of stroke were discussed, if hb and platelets are stable and if is not active bleeding, expectant management will be carried, there is not expansible hematoma, pseudomonas is growing in new sputum culture, still sensible to zosyn, we are going to restart the feedings, amiodarone once daily, no anticoagulation, levophed 2 mcg 05/06/25: his HR has been into the 40s, possible sick sinus syndrome, amiodarone DC, dopamine fixed dose started, levophed titrate down, T max 100, vancomycin will be started, free water started due to hypernatremia, the ecchymosis is migrating to the lower body, his hb is stable, extensive discussion with the family about the plan 05/07/25: HB 9,.9 plt 98, hematoma at the neck looks bigger, STAT angioct scan was done: showing Large heterogeneous hematoma is seen in the right lower neck which measures 9.9 x 5.9 cm and No evidence of acute arterial extravasation or injury. platelets were given. Case discussed with Dr Fernandez, who stated no need of stent at the moment Na 151 d5w 50cc/h, vancomycin was added 05/11/25: off dopamine, HR 70s, BPs elevated, hb is trending down, platelets normal, extensive discussion with the family held about the need of tracheostomy, surgery consult placed for tracheostomy, stop jardiance, free water, continue furosemide 20 mg daily 05/12/25: off pressors, HR control, hb is trending down, platelets trending high, dr Dorsey stated tracheostomy tomorrow, due to persistent fevers, dc zosyn, add meropenem, new cultures ordered, extensive discussion with family about the need of tracheostomy 05/13/25: tracheostomy was done: The hematoma was entered and retracted laterally. There was some aspiration of old blood with no evidence of ongoing hemorrhage. A size 8 cuffed non-fenestrated tracheostomy tube was placed, patient came back to the unit stable, low dose levophed 05/14/25: we are going to start reduce sedation, ct scan of neck and chest showed Right neck/scapular region hyperdense collection / lesion measuring 10.5 x 5.6 cm, similar to previous examination, likely corresponding to the provided history of hematoma. No definitive arterial extravasation seen. Respiratory #Septic shock #Acute respiratory failure due to COPD exacerbation and heart failure #s/p mechanical ventilation #Respiratory alkalosis #Bilateral pleural effusions L>R at admission: likely parapneumonic Thoracentesis done 1.3 LT drained: exudate #pneumonia gram+/ gram - due to klebsiella pneumoniae and pseudomonas aeruginosa #Severe respiratory acidosis resolved TV 450 RR 16 FIO2 30 PEEP 5 meropenem #SP tracheostomy 05/13/25 #sp bronchoscopy 05/19/25 05/14/25 Moderate left and small right pleural effusions with compressive atelectasis, hb and platelets are trending high, patient is having fevers, we are going to continue high spectrum antibiotics, tracheostomy on place functioning properly 05/15/25: patient is off versed, now on precedex, the idea is to continue decrease sedation, we are going to titrate down precedex drip, start fentanyl patch, tylenol IV and xanax, no need of thoracentesis for now, we are going to increase diuresis, klebsiella and pseudomonas in sputum, sensible to meropenem, hb and platelets trending high 05/18/25: during the weekend, patient had a bronchoscopy There were copious semipurulent secretions in the airways bilaterally that were loosened up with approximately 50 cc of normal saline and thoroughly suctioned into a separate specimen container. There were no endobronchial lesions however, mucosa appeared inflamed and easily friable, patient is on min sedation with precedex, cpap trial attempt and later trach collar for 6 min, later the patient was placed again on mechanical ventilation due to agitation and deconditioning, trach collar trial tomorrow again, hb and platelets stable 05/19/25: trach collar trial pm 20 min, then trach collar trial am 6 min, patient was placed on SIMV for 5 min, started to have tachypnea, we will continue exercise, SIMV daily, change kenney, high BPs losartan daily, on extra dose of furosemide, loose stools, metamucil started, dc vancomycin 05/20/25: patient is having high BPs, entresto and labetalol given, patient still having fevers, micafungin added, thoracentesis done in the left side 900 cc, large amount of respiratory secretions, no SIMV or trach collar trial today 05/21/25: SIMV daily, patient tolerates sitting down for couple of minutes, no collar trial today, carvedilol low dose started, GDMT will be started slowly, no fevers 05/22/25: SIMV mode, RR can be 8 tomorrow, PS 8 also, patient tolerate collar trial for 10 min, no fevers. Endocrinology #DM type 2, hba1c 6.7 ISS, moderate #Hypernatremia mild monitor Renal #Hyperkalemia, resolved #BAO due to VMN resolved GI tube feedings: continue feedings #Mild Hyperbillirubinemia resolved #Constipation resolved more solid stools Hem/onc #Anemia, normochromic, normocytic: 10.4 #Thrombocytopenia resolved: 426 monitor, transfusion of 2 apheresis of platelets previously Lines: PICC line right upper arm 05/01/25 intubation 04/23/25 extubated 05/01/25 reintubated 05/04/25 removed 05/13/25 kenney catheter 04/23/25 tracheostomy tube 05/13/[address] Tenorio Full code Time spent on critical care 85 min, including discussion with family excluding procedures No anticoagulation, high risk of bleeding PUD prophylaxis: protonix IV Plan discussed with: Patient, Daughter, Other (rn) My Orders My Orders Orders - MIS REYEZ Procedure Category Date Status Time Chest Xray 1 View XY 05/22/25 Resulted 04:00 Abg W/ Co-Ox RT 05/22/25 Logged 04:00 Dietary Evaluation Review Comments: Nutrition Recommendation: 1. TF Vital AF 1.2 Luis Enrique @ 60 ml/hr. start @ 20ml/hr, increase 10ml/hr Q4H until goal is reached. TF at goal volume provides 100% energy & protein needs - 1728 kcal, 108 gm protein, 1168 ml free water 2. Water flush 140ml Q6H if allowed 3. TPN if NPO> 7 days Expected Outcomes/Goals: To meet >75% estimated needs Fu 2-3 days MIS REYEZ RESIDENT May 22, 2025 12:54
[2025-05-23] VITALS (38 sets, daily range): BP systolic 109–180; BP diastolic 44–78; PULSE 59–88; RESP 11–33; TEMP 97.5–99; O2SAT 92–100
[2025-05-23 03:45] LABS: Hematocrit 34.0 % (41.0-53.0); Hemoglobin 11.3 g/dL (13.5-17.5); Mean Corpuscular Hemoglobin 30.1 pg (28.0-32.0); Mean Corpuscular Volume 90.7 fL (80.0-100.0); Nucleated Red Blood Cells % 0.1 %
[2025-05-23 04:01] LABS: Alanine Aminotransferase 25 U/L (7-40); Alkaline Phosphatase 82 U/L (46-116); Anion Gap 9 (5-15); BUN/Creatinine Ratio 40.7 (10.0-20.0); Carbon Dioxide 30 mmol/L (20-31); Chloride 103 mmol/L (98-107); Sodium 142 mmol/L (136-145); Total Protein 5.9 g/dL (5.7-8.2)
[2025-05-23 04:02] LABS: Albumin 3.2 g/dL (3.2-4.8); Bilirubin, Total 0.9 mg/dL (0.2-1.0)
[2025-05-23 04:04] LABS: Blood Urea Nitrogen 24 mg/dL (9-23); Calcium 8.6 mg/dL (8.7-10.4); Glucose 140 mg/dL (74-106); Potassium 3.1 mmol/L (3.5-5.1)
--- NOTE | 2025-05-23 05:28 | DVH ---
CHEST RADIOGRAPH Indication: pneumonia Technique: Single frontal view of the chest was obtained COMPARISON: XY CHEST XRAY 1 VIEW on DOS: 05/22/25, XY CHEST XRAY 1 VIEW on DOS: 05/21/25, XY CHEST PORT ABLE on DOS: 05/20/25, XY CHEST PORTABLE on DOS: 05/20/25, XY CHEST XRAY 1 VIEW on DOS: 05/20/25 FINDINGS: Lines and Tubes: Tracheostomy in satisfactory position. Right PICC and enteric catheter in satisfacto ry position Lungs: Pulmonary vascular congestion Pleura: No effusion. No pneumothorax. Cardiomediastinal contours: Cardiomegaly Bones: Unremarkable IMPRESSION: Lines and tubes in satisfactory position. No significant interval change.
[2025-05-23] MEDS: POTASSIUM CHL 20MEQ/100ML 100 ML IV SCH (05:31)
[2025-05-23 06:55] LABS: Base Excess 4.8 mmol/L (-2.0-3.0)
--- NOTE | 2025-05-23 15:24 | DVHPN2 ---
Subjective The patient is seen and examined at bedside. No change overnight. Remained intubated. Reviewed: Care Plan, H&P Changes from previous H/P or p: No Changes General: Per HPI Eyes: No Pain, No Vision change, No Conjunctivae inflammation, No Eyelid inflammation, No Other, No Redness ENT: No Ear pain, No Ear discharge, No Nose pain, No Nose discharge, No Nose congestion, No Mouth pain, No Mouth swelling, No Throat pain, No Throat swelling, No Other Cardiovascular: No Chest Pain; Palpitations, Paroxysmal Noc. Dyspnea, Edema; No Lt Headedness, No Other Respiratory: Cough, Dry, Shortness of breath, SOB with excertion Gastrointestinal: No Nausea, No Vomiting, No Abdominal Pain, No Diarrhea, No Constipation, No Melena, No Hematochezia, No Other Genitourinary: No Dysuria, No Frequency, No Incontinence, No Hematuria, No Retention, No Other Musculoskeletal: other (Bilateral leg swelling); No neck pain, No shoulder pain, No arm pain, No back pain, No hand pain, No leg pain, No foot pain Skin: No Rash, No Lesions, No Jaundice, No Bruising, No Other Objective Vitals Vital Signs Date Time Temp Pulse Resp B/P (MAP) Pulse Ox O2 Delivery O2 Flow Rate FiO2 05/23/25 14:00 30 05/23/25 14:00 15 99 Mechanical Ventilator+ 05/23/25 14:00 69 127/60 (82) 05/23/25 12:00 98.9 98.9 05/22/25 18:07 12 Intake/Output Intake and Output 05/23/25 07:00 Intake Total 1690 ml Output Total 1750 ml Balance -60 ml Intake Oral 100 ml IV Total 350 ml Tube Feeding 1240 ml Output Urine Total 1750 ml # Bowel Movements 1 General Appearance: Other (Intubated, on vent, unable to exam) HEENT: Atraumatic, Mucous membr. moist/pink Neck: Supple Lungs: Clear to auscultation Cardiovascular: Regular rate, Normal S1, Normal S2, No murmurs, Gallops, Rubs Abdomen: Normal bowel sounds, Soft Extremities: Normal pulses Medications Current Medications Medications Dose Ordered Sig/Jose Alfredo Route Start Time Stop Time Status Last Admin Dose Admin Midazolam HCl 50 ml @ 1 mls/hr Q24H IV 04/23/25 23:15 05/16/25 23:03 4 MLS/HR Pantoprazole Sodium 40 mg DAILY IV 04/28/25 10:00 05/23/25 09:48 40 MG Sodium Chloride 10 ml QSHIFT@10,22 IV 05/01/25 10:00 05/23/25 11:19 10 ML Enteral Nutritional Formula 1,000 ml 60ML/HR GT 05/05/25 16:45 05/22/25 21:12 1,000 ML Atropine Sulfate 1 mg UD PRN IV 05/07/25 02:00 Dextrose 50 ml UD PRN IV 05/07/25 18:00 Insulin Human Regular ACHS SC 05/08/25 17:00 05/23/25 11:54 2 UNITS Diagnostic Test (Pha) 1 strip ACHS 05/08/25 17:00 05/23/25 11:42 1 STRIP Vancomycin HCl 150 ml @ 100 mls/hr Q12H IV 05/14/25 21:00 UNV Meropenem 50 ml @ 17 mls/hr Q8HR IV 05/14/25 22:00 05/23/25 14:28 17 MLS/HR Furosemide 40 mg DAILY IV 05/16/25 10:00 05/23/25 09:47 40 MG Alprazolam 0.25 mg Q8HP PRN NG 05/15/25 14:45 05/22/25 21:12 0.25 MG Acetaminophen 650 mg Q6HP PRN PO 05/16/25 19:15 05/22/25 21:12 650 MG Psyllium Hydrophilic Mucilloid 1 pkg DAILY PO 05/20/25 10:00 05/23/25 09:47 1 PKG Micafungin Sodium 100 mg/Sodium Chloride 100 ml @ 100 mls/hr DAILY IV 05/21/25 10:00 05/23/25 10:01 100 MLS/HR Empaglifozin 10 mg DAILY PO 05/21/25 10:00 05/23/25 09:48 10 MG Labetalol HCl 5 mg Q2HPRN PRN IV 05/20/25 16:45 05/21/25 16:25 5 MG Sacubitril/ Valsartan 1 tab BID PO 05/21/25 10:00 05/23/25 09:48 1 TAB Carvedilol 3.125 mg Q12HR PO 05/21/25 22:00 7/26/25 09:48 3.125 MG Laboratory Results Laboratory Tests 05/23/25 03:05 Chemistry Test 05/23/25 03:05 Albumin 3.2 g/dL (3.2-4.8) Calcium Level 8.6 mg/dL (8.7-10.4) L Magnesium Level 1.9 mg/dL (1.6-2.6) Total Protein 5.9 g/dL (5.7-8.2) LFT Test 05/23/25 03:05 Alanine Aminotransferase (ALT) 25 U/L (7-40) Alkaline Phosphatase 82 U/L (46-116) Aspartate Amino Transferase (AST) 29 U/L (13-40) Total Bilirubin 0.9 mg/dL (0.2-1.0) Urinalysis Test 05/19/25 15:00 Urine Color Colorless (Yellow) Urine Clarity Turbid (Clear) H Urine pH 6.0 (5.0-9.0) Urine Specific [place] 1.016 (1.001-1.035) Urine Protein 1+ (Negative) H Urine Ketones Negative (Negative) Urine Blood 3+ /uL (Negative) H Urine Nitrite Negative (Negative) Urine Bilirubin Negative (Negative) Urine Urobilinogen 2 mg/dL (Negative) H Urine Leukocyte Esterase 2+ /uL (Negative) Urine RBC 274 /hpf (0 - 3) Urine Microscopic WBC 16 /HPF (0-3) H Urine Squamous Epithelial Cells None seen /hpf (<5) Urine Bacteria None seen /hpf (None Seen) Urine Mucus Few (None Seen) Urine Glucose Normal mg/dL (Normal) Blood Gas Results Test 05/23/25 06:46 Arterial Blood pH 7.494 (7.350-7.450) FiO2 % 30.0 Microbiology Microbiology Date/Time Source Procedure Growth Status 05/20/25 12:10 Blood Blood Culture - Preliminary NO GROWTH AFTER 72 HOURS OF INCUBATION. Resulted 05/20/25 12:05 Pleural Fluid Gram Stain - Final Resulted 05/20/25 12:05 Pleural Fluid Aerobic Culture - Preliminary Resulted 05/19/25 09:00 Stool Stool Culture - Final Complete 05/19/25 09:00 Stool Shiga Toxin I & II - Final Complete 05/16/25 10:50 Bronchial Washings Gram Stain - Final Complete 05/16/25 10:50 Respiratory Culture - Final Yeast, not Reena albicans Complete 05/12/25 12:44 Voided Urine Urine Culture - Final Complete 05/03/25 20:20 Trachea Gram Stain - Final Complete 05/03/25 20:20 Respiratory Culture - Final Pseudomonas aeruginosa Complete Assessment/Plan Assessment/Plan Neurologic #Acute metabolic encephalopathy due to hypercapnic respiratory failure sedation: fentanyl and precedex, please titrate down precedex xanax po tylenol iv fentanyl patch Cardiovascular #Acute exacerbation of heart failure with possible reduced ejection fraction #Septic shock ECHO EF 25%: severe dilated cavities, LHC no significant CAD Cardiology on board dc jardiance 10 mg levophed off off dopamine furosemide 40 mg IV #New onset atrial flutter 2-1 AV conduction with RVR resolved #Possible sick sinus syndrome #Hypertensive emergency resolved #Hypertensive heart disease with systolic failure #sp CVC removal from right brachiocephalic/subclavian artery #neck hematoma #Moderate left and small right pleural effusions with compressive atelectasis hb stable, patient is having a bruise, migrating to the back, no expansive hematoma at the moment 05/05/25: extend discussion with the family today and Dr Kumar IR: positive pressure of the ventilator is helping to control the bleeding, we are going to wait until hematoma is decreasing to do another intervention, possibility of tracheostomy and stent placement were discussed with the family, risk of stroke were discussed, if hb and platelets are stable and if is not active bleeding, expectant management will be carried, there is not expansible hematoma, pseudomonas is growing in new sputum culture, still sensible to zosyn, we are going to restart the feedings, amiodarone once daily, no anticoagulation, levophed 2 mcg 05/06/25: his HR has been into the 40s, possible sick sinus syndrome, amiodarone DC, dopamine fixed dose started, levophed titrate down, T max 100, vancomycin will be started, free water started due to hypernatremia, the ecchymosis is migrating to the lower body, his hb is stable, extensive discussion with the family about the plan 05/07/25: HB 9,.9 plt 98, hematoma at the neck looks bigger, STAT angioct scan was done: showing Large heterogeneous hematoma is seen in the right lower neck which measures 9.9 x 5.9 cm and No evidence of acute arterial extravasation or injury. platelets were given. Case discussed with Dr Fernandez, who stated no need of stent at the moment Na 151 d5w 50cc/h, vancomycin was added 05/11/25: off dopamine, HR 70s, BPs elevated, hb is trending down, platelets normal, extensive discussion with the family held about the need of tracheostomy, surgery consult placed for tracheostomy, stop jardiance, free water, continue furosemide 20 mg daily 05/12/25: off pressors, HR control, hb is trending down, platelets trending high, dr Dorsey stated tracheostomy tomorrow, due to persistent fevers, dc zosyn, add meropenem, new cultures ordered, extensive discussion with family about the need of tracheostomy 05/13/25: tracheostomy was done: The hematoma was entered and retracted laterally. There was some aspiration of old blood with no evidence of ongoing hemorrhage. A size 8 cuffed non-fenestrated tracheostomy tube was placed, patient came back to the unit stable, low dose levophed 05/14/25: we are going to start reduce sedation, ct scan of neck and chest showed Right neck/scapular region hyperdense collection / lesion measuring 10.5 x 5.6 cm, similar to previous examination, likely corresponding to the provided history of hematoma. No definitive arterial extravasation seen. Respiratory #Septic shock #Acute respiratory failure due to COPD exacerbation and heart failure #s/p mechanical ventilation #Respiratory alkalosis #Bilateral pleural effusions L>R at admission: likely parapneumonic Thoracentesis done 1.3 LT drained: exudate #pneumonia gram+/ gram - due to klebsiella pneumoniae and pseudomonas aeruginosa #Severe respiratory acidosis resolved TV 450 RR 16 FIO2 30 PEEP 5 meropenem and vancomycin #SP tracheostomy 05/13/25 05/14/25 Moderate left and small right pleural effusions with compressive atelectasis, hb and platelets are trending high, patient is having fevers, we are going to continue high spectrum antibiotics, tracheostomy on place functioning properly 05/15/25: patient is off versed, now on precedex, the idea is to continue decrease sedation, we are going to titrate down precedex drip, start fentanyl patch, tylenol IV and xanax, no need of thoracentesis for now, we are going to increase diuresis, klebsiella and pseudomonas in sputum, sensible to meropenem, hb and platelets trending high Endocrinology #DM type 2, hba1c 6.7 ISS, moderate #Hypernatremia mild monitor Renal #Hyperkalemia, resolved #BAO due to VMN resolved IV insulin and furosemide given GI tube feedings: continue feedings #Mild Hyperbillirubinemia #Constipation resolved lactulose due to constipation Hem/onc #Anemia, normochromic, normocytic: 9.9 #Thrombocytopenia: 308 monitor, transfusion of 2 apheresis of platelets previously Lines: PICC line right upper arm 05/01/25 intubation 04/23/25 extubated 05/01/25 reintubated 05/04/25 removed 05/13/25 kenney catheter 04/23/25 tracheostomy tube 05/13/25 Critical care spent for this case is 39 minute This medical document was created using an electronic medical record system with [employer] direct computerized dictation system. Although this document has been carefully reviewed, there may still be some phonetic and typographical errors. These areas are purely typographical due to imperfections of the software programs, and do not reflect any compromise in the patient's medical care. Plan discussed with: Other (RN) Date of Service: May 23, 2025 Billing Provider: EL DUBOIS MD Common Visit Codes: [id number]-[id number] CARE 30-74 MIN EL DUBOIS MD May 23, 2025 15:24
--- NOTE | 2025-05-23 23:14 | DVHPN2 ---
Progress Note - Dictate Date Seen: May 23, 2025 Has the PT tested + for MRSA If YES, has PT been informed?: No Medical Necessity Reason Pt with a Central, PICC or Fol: Yes The following are medically ne: PICC Line, Kenney Catheter Reason for kenney catheter: Strict I&O Subjective Patient seen and examined at bedside. S/p trach, on mechanical ventilator. Overnight events reviewed. vital signs Vital Sign Date Time Temp Pulse Resp B/P (MAP) Pulse Ox O2 Delivery O2 Flow Rate FiO2 05/23/25 22:08 61 17 132/50 (77) 97 30 05/23/25 22:00 Mechanical Ventilator+ 05/23/25 20:00 98.0 98.0 05/22/25 18:07 12 Total Intake and Output 05/22/25 05/22/25 05/23/25 15:00 23:00 07:00 Intake Total 167 ml 406 ml 1117 ml Output Total 1250 ml 500 ml Balance 167 ml -844 ml 617 ml medications Current Medications Medications Dose Ordered Sig/Jose Alfredo Route Start Time Stop Time Status Last Admin Dose Admin Midazolam HCl 50 ml @ 1 mls/hr Q24H IV 04/23/25 23:15 05/16/25 23:03 4 MLS/HR Pantoprazole Sodium 40 mg DAILY IV 04/28/25 10:00 05/23/25 09:48 40 MG Sodium Chloride 10 ml QSHIFT@10,22 IV 05/01/25 10:00 05/23/25 20:59 10 ML Enteral Nutritional Formula 1,000 ml 60ML/HR GT 05/05/25 16:45 05/22/25 21:12 1,000 ML Atropine Sulfate 1 mg UD PRN IV 05/07/25 02:00 Dextrose 50 ml UD PRN IV 05/07/25 18:00 Insulin Human Regular ACHS SC 05/08/25 17:00 05/23/25 21:32 2 UNITS Diagnostic Test (Pha) 1 strip ACHS 05/08/25 17:00 05/23/25 21:32 1 STRIP Vancomycin HCl 150 ml @ 100 mls/hr Q12H IV 05/14/25 21:00 UNV Meropenem 50 ml @ 17 mls/hr Q8HR IV 05/14/25 22:00 05/23/25 20:59 17 MLS/HR Furosemide 40 mg DAILY IV 05/16/25 10:00 05/23/25 09:47 40 MG Alprazolam 0.25 mg Q8HP PRN NG 05/15/25 14:45 05/22/25 21:12 0.25 MG Acetaminophen 650 mg Q6HP PRN PO 05/16/25 19:15 05/22/25 21:12 650 MG Psyllium Hydrophilic Mucilloid 1 pkg DAILY PO 05/20/25 10:00 05/23/25 09:47 1 PKG Micafungin Sodium 100 mg/Sodium Chloride 100 ml @ 100 mls/hr DAILY IV 05/21/25 10:00 05/23/25 10:01 100 MLS/HR Empaglifozin 10 mg DAILY PO 05/21/25 10:00 05/23/25 09:48 10 MG Labetalol HCl 5 mg Q2HPRN PRN IV 05/20/25 16:45 05/21/25 16:25 5 MG Sacubitril/ Valsartan 1 tab BID PO 05/21/25 10:00 05/23/25 21:00 1 TAB Carvedilol 3.125 mg Q12HR PO 05/21/25 22:00 05/23/25 21:00 3.125 MG objective Gen.: Patient lying in bed in medical ICU. S/p trach, on mechanical ventilator. Head: Normocephalic, atraumatic. Eyes: PERRLA. Ears: Normal external anatomy. Throat: Endotracheal tube and orogastric tube in place. Neck: Trach in place. Chest: Transmitted breath sounds bilaterally. Decreased air entry bilaterally. No wheezing. Bibasilar crackles. Cardiovascular: Positive S1, positive S2. Regular rate and rhythm. Abdomen: Positive bowel sounds in all 4 quadrants. Soft, nontender, nondistended. : Kenney in place. Normal external genitalia. Rectal: Deferred. Skin: Warm, dry. Intact. Extremities: 2+ radial pulses bilaterally. No lower extremity edema. Neuro: Off sedation laboratory and microbiology Laboratory Tests 05/23/25 03:05 Test 05/23/25 03:05 Range/Units Serum Glucose 140 H 74-106 mg/dL Assessment/Plan Impression: Acute hypoxic respiratory failure 2/2 COPD exacerbation On mechanical ventilator S/p tracheostomy Acute COPD exacerbation Acute CHF exacerbation Acute metabolic encephalopathy Septic shock Lactic acidosis Pleural effusions Atelectasis Large neck hematoma Obesity Events: Remains on vent support S/p trach Tolerating trach collar 10 min daily Vent settings: SIMV mode with RR 14, VT 450, PS 10, PEEP 5, FiO2 50% Trach care per RT. Supportive care. Continue antibiotics/antifungal CXR reviewed, demonstrates pulmonary vascular congestion and cardiomegaly. Head of bed elevation Aspiration precautions Accu-Cheks, ISS Mechanical DVT prophylaxis Monitor hemoglobin closely Monitor platelet count Labs and imaging reviewed. Rest of plan as noted below. Plan: On mechanical ventilator. S/p tracheostomy Titrate FIO2 to keep O2 saturation above 90%. Trach care Pulmonary toileting Pressors as necessary for hemodynamic support. Titrate to keep MAP greater than 65 mmHg. Continue antibiotics. Accu-Cheks, ISS Monitor hemoglobin Protonix for GI ppx Diurese with Lasix Monitor renal function Monitor electrolytes. Supplement as necessary. Monitor ins and outs. Maintain euvolemia. Obesity complicates all care. GI prophylaxis - Protonix Mechanical DVT prophylaxis Prognosis: Poor given patient's multiple co-morbidities. Rest of plan per hospitalist and other consultants. Thank you, Dr. Serra, for allowing me to participate in this patient's care. Further recommendations will depend on the patient's clinical course. Please do not hesitate to contact me if you have any questions or concerns. This medical document was created using an electronic medical record system with [employer] dictation system. Although these documentations are being carefully reviewed, there may still be some phonetic and typographical changes. The errors are purely typographical, due to imperfection on the software program, and do not reflect any compromise in the patient's medical care. Dietary Evaluation Review Comments: Nutrition Recommendation: 1. TF Vital AF 1.2 Luis Enrique @ 60 ml/hr. start @ 20ml/hr, increase 10ml/hr Q4H until goal is reached. TF at goal volume provides 100% energy & protein needs - 1728 kcal, 108 gm protein, 1168 ml free water 2. Water flush 140ml Q6H if allowed 3. TPN if NPO> 7 days Expected Outcomes/Goals: To meet >75% estimated needs Fu 2-3 days Plan discussed with: Patient, Other (DUDLEY Moore) VITO REDMOND MD May 23, 2025 23:14
[2025-05-24] VITALS (41 sets, daily range): BP systolic 109–174; BP diastolic 54–123; PULSE 58–88; RESP 10–27; TEMP 97.8–99; O2SAT 94–99
[2025-05-24 03:36] LABS: Hematocrit 32.5 % (41.0-53.0); Hemoglobin 10.9 g/dL (13.5-17.5); Mean Corpuscular Hemoglobin 30.5 pg (28.0-32.0); Mean Corpuscular Volume 91.2 fL (80.0-100.0); Nucleated Red Blood Cells % 0.3 %
[2025-05-24 03:51] LABS: Anion Gap 9 (5-15); Carbon Dioxide 29 mmol/L (20-31); Chloride 103 mmol/L (98-107); Potassium 3.6 mmol/L (3.5-5.1); Sodium 141 mmol/L (136-145)
[2025-05-24 03:53] LABS: Calcium 8.8 mg/dL (8.7-10.4)
[2025-05-24 03:57] LABS: BUN/Creatinine Ratio 46.2 (10.0-20.0); Glucose 130 mg/dL (74-106)
[2025-05-24 03:58] LABS: Blood Urea Nitrogen 24 mg/dL (9-23)
--- NOTE | 2025-05-24 05:37 | DVH ---
CHEST RADIOGRAPH Indication: PATIENT ON TRACHEOSTOMY TO MECHANICAL VENTILATOR Technique: Single frontal view of the chest was obtained Comparison: XY CHEST XRAY 1 VIEW on DOS: 05/23/25, XY CHEST XRAY 1 VIEW on DOS: 05/22/25, XY CHEST XRAY 1 VIEW on DOS: 05/21/25 IMPRESSION: The heart is stable in size. Right PICC line tip in the region of the superior vena cava. Endotrache al tube tip unchanged,with tip likely in the gastric fundus, side hole at the gastroesophageal juncti on. Advancement of approximately 5-6 cm is recommended for ideal positioning. Patchy airspace opacity right lung base. Possible trace bilateral pleural effusions. No pneumothorax.
[2025-05-24 07:29] LABS: Base Excess 3.6 mmol/L (-2.0-3.0)
--- NOTE | 2025-05-24 12:33 | DVHPN2 ---
Subjective The patient is seen and examined at bedside. No change overnight. Remained intubated. Alert, awake. Reviewed: Care Plan, H&P Changes from previous H/P or p: No Changes General: Per HPI Eyes: No Pain, No Vision change, No Conjunctivae inflammation, No Eyelid inflammation, No Other, No Redness ENT: No Ear pain, No Ear discharge, No Nose pain, No Nose discharge, No Nose congestion, No Mouth pain, No Mouth swelling, No Throat pain, No Throat swelling, No Other Cardiovascular: No Chest Pain; Palpitations, Paroxysmal Noc. Dyspnea, Edema; No Lt Headedness, No Other Respiratory: Cough, Dry, Shortness of breath, SOB with excertion Gastrointestinal: No Nausea, No Vomiting, No Abdominal Pain, No Diarrhea, No Constipation, No Melena, No Hematochezia, No Other Genitourinary: No Dysuria, No Frequency, No Incontinence, No Hematuria, No Retention, No Other Musculoskeletal: other (Bilateral leg swelling); No neck pain, No shoulder pain, No arm pain, No back pain, No hand pain, No leg pain, No foot pain Skin: No Rash, No Lesions, No Jaundice, No Bruising, No Other Objective Vitals Vital Signs Date Time Temp Pulse Resp B/P (MAP) Pulse Ox O2 Delivery O2 Flow Rate FiO2 05/24/25 12:02 59 05/24/25 11:42 20 145/61 (89) 96 30 05/24/25 11:37 Mechanical Ventilator+ 05/24/25 08:00 97.8 97.8 05/22/25 18:07 12 Intake/Output Intake and Output 05/24/25 07:00 Intake Total 1437 ml Output Total 2100 ml Balance -663 ml Intake Oral 100 ml IV Total 217 ml Tube Feeding 920 ml Other 200 ml Output Urine Total 2100 ml General Appearance: Alert, Other (Intubate, on vent.) HEENT: Atraumatic, Mucous membr. moist/pink Neck: Supple Lungs: Clear to auscultation Cardiovascular: Regular rate, Normal S1, Normal S2, No murmurs, Gallops, Rubs Abdomen: Normal bowel sounds, Soft Extremities: Normal pulses Medications Current Medications Medications Dose Ordered Sig/Jose Alfredo Route Start Time Stop Time Status Last Admin Dose Admin Midazolam HCl 50 ml @ 1 mls/hr Q24H IV 04/23/25 23:15 05/16/25 23:03 4 MLS/HR Pantoprazole Sodium 40 mg DAILY IV 04/28/25 10:00 05/24/25 09:11 40 MG Sodium Chloride 10 ml QSHIFT@10,22 IV 05/01/25 10:00 05/24/25 09:12 10 ML Enteral Nutritional Formula 1,000 ml 60ML/HR GT 05/05/25 16:45 05/22/25 21:12 1,000 ML Atropine Sulfate 1 mg UD PRN IV 05/07/25 02:00 Dextrose 50 ml UD PRN IV 05/07/25 18:00 Insulin Human Regular ACHS SC 05/08/25 17:00 05/24/25 11:35 2 UNITS Diagnostic Test (Pha) 1 strip ACHS 05/08/25 17:00 05/24/25 11:35 1 STRIP Vancomycin HCl 150 ml @ 100 mls/hr Q12H IV 05/14/25 21:00 UNV Meropenem 50 ml @ 17 mls/hr Q8HR IV 05/14/25 22:00 05/24/25 06:14 17 MLS/HR Furosemide 40 mg DAILY IV 05/16/25 10:00 05/24/25 09:12 40 MG Alprazolam 0.25 mg Q8HP PRN NG 05/15/25 14:45 05/22/25 21:12 0.25 MG Acetaminophen 650 mg Q6HP PRN PO 05/16/25 19:15 05/22/25 21:12 650 MG Psyllium Hydrophilic Mucilloid 1 pkg DAILY PO 05/20/25 10:00 05/24/25 09:10 1 PKG Micafungin Sodium 100 mg/Sodium Chloride 100 ml @ 100 mls/hr DAILY IV 05/21/25 10:00 05/24/25 09:12 100 MLS/HR Empaglifozin 10 mg DAILY PO 05/21/25 10:00 05/24/25 09:11 10 MG Labetalol HCl 5 mg Q2HPRN PRN IV 05/20/25 16:45 05/21/25 16:25 5 MG Sacubitril/ Valsartan 1 tab BID PO 05/21/25 10:00 05/24/25 09:11 1 TAB Carvedilol 3.125 mg Q12HR PO 05/21/25 22:00 05/24/25 09:11 3.125 MG Laboratory Results Laboratory Tests 05/24/25 02:45 Chemistry Test 05/24/25 02:45 Calcium Level 8.8 mg/dL (8.7-10.4) Urinalysis Test 05/19/25 15:00 Urine Color Colorless (Yellow) Urine Clarity Turbid (Clear) H Urine pH 6.0 (5.0-9.0) Urine Specific Hermon 1.016 (1.001-1.035) Urine Protein 1+ (Negative) H Urine Ketones Negative (Negative) Urine Blood 3+ /uL (Negative) H Urine Nitrite Negative (Negative) Urine Bilirubin Negative (Negative) Urine Urobilinogen 2 mg/dL (Negative) H Urine Leukocyte Esterase 2+ /uL (Negative) Urine RBC 274 /hpf (0 - 3) Urine Microscopic WBC 16 /HPF (0-3) H Urine Squamous Epithelial Cells None seen /hpf (<5) Urine Bacteria None seen /hpf (None Seen) Urine Mucus Few (None Seen) Urine Glucose Normal mg/dL (Normal) Blood Gas Results Test 05/24/25 07:18 Arterial Blood pH 7.487 (7.350-7.450) FiO2 % 30.0 Microbiology Microbiology Date/Time Source Procedure Growth Status 05/20/25 12:10 Blood Blood Culture - Preliminary NO GROWTH AFTER 72 HOURS OF INCUBATION. Resulted 05/20/25 12:05 Pleural Fluid Gram Stain - Final Resulted 05/20/25 12:05 Pleural Fluid Aerobic Culture - Preliminary Resulted 05/19/25 09:00 Stool Stool Culture - Final Complete 05/19/25 09:00 Stool Shiga Toxin I & II - Final Complete 05/16/25 10:50 Bronchial Washings Gram Stain - Final Complete 05/16/25 10:50 Respiratory Culture - Final Yeast, not Reena albicans Complete 05/12/25 12:44 Voided Urine Urine Culture - Final Complete 05/03/25 20:20 Trachea Gram Stain - Final Complete 05/03/25 20:20 Respiratory Culture - Final Pseudomonas aeruginosa Complete Labs and/or images reviewed: Labs reviewed by me Assessment/Plan Assessment/Plan Neurologic #Acute metabolic encephalopathy due to hypercapnic respiratory failure sedation: fentanyl and precedex, please titrate down precedex xanax po tylenol iv fentanyl patch Cardiovascular #Acute exacerbation of heart failure with possible reduced ejection fraction #Septic shock ECHO EF 25%: severe dilated cavities, LHC no significant CAD Cardiology on board dc jardiance 10 mg levophed off off dopamine furosemide 40 mg IV #New onset atrial flutter 2-1 AV conduction with RVR resolved #Possible sick sinus syndrome #Hypertensive emergency resolved #Hypertensive heart disease with systolic failure #sp CVC removal from right brachiocephalic/subclavian artery #neck hematoma #Moderate left and small right pleural effusions with compressive atelectasis hb stable, patient is having a bruise, migrating to the back, no expansive hematoma at the moment 05/05/25: extend discussion with the family today and Dr Kumar IR: positive pressure of the ventilator is helping to control the bleeding, we are going to wait until hematoma is decreasing to do another intervention, possibility of tracheostomy and stent placement were discussed with the family, risk of stroke were discussed, if hb and platelets are stable and if is not active bleeding, expectant management will be carried, there is not expansible hematoma, pseudomonas is growing in new sputum culture, still sensible to zosyn, we are going to restart the feedings, amiodarone once daily, no anticoagulation, levophed 2 mcg 05/06/25: his HR has been into the 40s, possible sick sinus syndrome, amiodarone DC, dopamine fixed dose started, levophed titrate down, T max 100, vancomycin will be started, free water started due to hypernatremia, the ecchymosis is migrating to the lower body, his hb is stable, extensive discussion with the family about the plan 05/07/25: HB 9,.9 plt 98, hematoma at the neck looks bigger, STAT angioct scan was done: showing Large heterogeneous hematoma is seen in the right lower neck which measures 9.9 x 5.9 cm and No evidence of acute arterial extravasation or injury. platelets were given. Case discussed with Dr Fernanedz, who stated no need of stent at the moment Na 151 d5w 50cc/h, vancomycin was added 05/11/25: off dopamine, HR 70s, BPs elevated, hb is trending down, platelets normal, extensive discussion with the family held about the need of tracheostomy, surgery consult placed for tracheostomy, stop jardiance, free water, continue furosemide 20 mg daily 05/12/25: off pressors, HR control, hb is trending down, platelets trending high, dr Dorsey stated tracheostomy tomorrow, due to persistent fevers, dc zosyn, add meropenem, new cultures ordered, extensive discussion with family about the need of tracheostomy 05/13/25: tracheostomy was done: The hematoma was entered and retracted laterally. There was some aspiration of old blood with no evidence of ongoing hemorrhage. A size 8 cuffed non-fenestrated tracheostomy tube was placed, patient came back to the unit stable, low dose levophed 05/14/25: we are going to start reduce sedation, ct scan of neck and chest showed Right neck/scapular region hyperdense collection / lesion measuring 10.5 x 5.6 cm, similar to previous examination, likely corresponding to the provided history of hematoma. No definitive arterial extravasation seen. Respiratory #Septic shock #Acute respiratory failure due to COPD exacerbation and heart failure #s/p mechanical ventilation #Respiratory alkalosis #Bilateral pleural effusions L>R at admission: likely parapneumonic Thoracentesis done 1.3 LT drained: exudate #pneumonia gram+/ gram - due to klebsiella pneumoniae and pseudomonas aeruginosa #Severe respiratory acidosis resolved TV 450 RR 16 FIO2 30 PEEP 5 meropenem and vancomycin #SP tracheostomy 05/13/25 05/14/25 Moderate left and small right pleural effusions with compressive atelectasis, hb and platelets are trending high, patient is having fevers, we are going to continue high spectrum antibiotics, tracheostomy on place functioning properly 05/15/25: patient is off versed, now on precedex, the idea is to continue decrease sedation, we are going to titrate down precedex drip, start fentanyl patch, tylenol IV and xanax, no need of thoracentesis for now, we are going to increase diuresis, klebsiella and pseudomonas in sputum, sensible to meropenem, hb and platelets trending high Endocrinology #DM type 2, hba1c 6.7 ISS, moderate #Hypernatremia mild monitor Renal #Hyperkalemia, resolved #BAO due to VMN resolved IV insulin and furosemide given GI tube feedings: continue feedings #Mild Hyperbillirubinemia #Constipation resolved lactulose due to constipation Hem/onc #Anemia, normochromic, normocytic: 9.9 #Thrombocytopenia: 308 monitor, transfusion of 2 apheresis of platelets previously Lines: PICC line right upper arm 05/01/25 intubation 04/23/25 extubated 05/01/25 reintubated 05/04/25 removed 05/13/25 kenney catheter 04/23/25 tracheostomy tube 05/13/25 Critical care spent for this case is 39 minute This medical document was created using an electronic medical record system with [email or web address] direct computerized dictation system. Although this document has been carefully reviewed, there may still be some phonetic and typographical errors. These areas are purely typographical due to imperfections of the software programs, and do not reflect any compromise in the patient's medical care. Plan discussed with: Patient Date of Service: May 24, 2025 Billing Provider: EL DUBOIS MD Common Visit Codes: [id number] INP/OBS CARE(HIGH) EL DUBOIS MD May 24, 2025 12:33
--- NOTE | 2025-05-24 23:15 | DVHPN2 ---
Progress Note - Dictate Date Seen: May 24, 2025 Has the PT tested + for MRSA If YES, has PT been informed?: No Medical Necessity Reason Pt with a Central, PICC or Fol: Yes The following are medically ne: PICC Line, Kenney Catheter Reason for kenney catheter: Strict I&O Subjective Patient seen and examined at bedside. S/p trach, on mechanical ventilator. Overnight events reviewed. vital signs Vital Sign Date Time Temp Pulse Resp B/P (MAP) Pulse Ox O2 Delivery O2 Flow Rate FiO2 05/24/25 22:12 67 132/58 05/24/25 22:00 30 05/24/25 22:00 14 94 05/24/25 22:00 Mechanical Ventilator+ 05/24/25 20:00 99.0 99.0 05/22/25 18:07 12 Total Intake and Output 05/23/25 05/23/25 05/24/25 15:00 23:00 07:00 Intake Total 150 ml 517 ml 787 ml Output Total 1300 ml 800 ml Balance 150 ml -783 ml -13 ml medications Current Medications Medications Dose Ordered Sig/Jose Alfredo Route Start Time Stop Time Status Last Admin Dose Admin Midazolam HCl 50 ml @ 1 mls/hr Q24H IV 04/23/25 23:15 05/16/25 23:03 4 MLS/HR Pantoprazole Sodium 40 mg DAILY IV 04/28/25 10:00 05/24/25 09:11 40 MG Sodium Chloride 10 ml QSHIFT@10,22 IV 05/01/25 10:00 05/24/25 22:12 10 ML Enteral Nutritional Formula 1,000 ml 60ML/HR GT 05/05/25 16:45 05/22/25 21:12 1,000 ML Atropine Sulfate 1 mg UD PRN IV 05/07/25 02:00 Dextrose 50 ml UD PRN IV 05/07/25 18:00 Insulin Human Regular ACHS SC 05/08/25 17:00 05/24/25 22:19 2 UNITS Diagnostic Test (Pha) 1 strip ACHS 05/08/25 17:00 05/24/25 22:13 1 STRIP Vancomycin HCl 150 ml @ 100 mls/hr Q12H IV 05/14/25 21:00 UNV Meropenem 50 ml @ 17 mls/hr Q8HR IV 05/14/25 22:00 05/24/25 22:12 17 MLS/HR Furosemide 40 mg DAILY IV 05/16/25 10:00 05/24/25 09:12 40 MG Alprazolam 0.25 mg Q8HP PRN NG 05/15/25 14:45 05/22/25 21:12 0.25 MG Acetaminophen 650 mg Q6HP PRN PO 05/16/25 19:15 05/22/25 21:12 650 MG Psyllium Hydrophilic Mucilloid 1 pkg DAILY PO 05/20/25 10:00 05/24/25 09:10 1 PKG Micafungin Sodium 100 mg/Sodium Chloride 100 ml @ 100 mls/hr DAILY IV 05/21/25 10:00 05/24/25 09:12 100 MLS/HR Empaglifozin 10 mg DAILY PO 05/21/25 10:00 05/24/25 09:11 10 MG Labetalol HCl 5 mg Q2HPRN PRN IV 05/20/25 16:45 05/21/25 16:25 5 MG Sacubitril/ Valsartan 1 tab BID PO 05/21/25 10:00 05/24/25 22:12 1 TAB Carvedilol 3.125 mg Q12HR PO 05/21/25 22:00 05/24/25 22:12 3.125 MG objective Gen.: Patient lying in bed in medical ICU. S/p trach, on mechanical ventilator. Head: Normocephalic, atraumatic. Eyes: PERRLA. Ears: Normal external anatomy. Throat: Endotracheal tube and orogastric tube in place. Neck: Trach in place. Chest: Transmitted breath sounds bilaterally. Decreased air entry bilaterally. No wheezing. Bibasilar crackles. Cardiovascular: Positive S1, positive S2. Regular rate and rhythm. Abdomen: Positive bowel sounds in all 4 quadrants. Soft, nontender, nondistended. : Kenney in place. Normal external genitalia. Rectal: Deferred. Skin: Warm, dry. Intact. Extremities: 2+ radial pulses bilaterally. No lower extremity edema. Neuro: Off sedation laboratory and microbiology Laboratory Tests 05/24/25 02:45 Test 05/24/25 02:45 Range/Units Serum Glucose 130 H 74-106 mg/dL Assessment/Plan Impression: Acute hypoxic respiratory failure 2/2 COPD exacerbation On mechanical ventilator S/p tracheostomy Acute COPD exacerbation Acute CHF exacerbation Acute metabolic encephalopathy Septic shock Lactic acidosis Pleural effusions Atelectasis Large neck hematoma Obesity Events: Remains on vent support S/p trach Vent settings: SIMV mode with RR 10, VT 450, PS 10, PEEP 5, FiO2 30% Remained on AC overnight Only tolerated 30 minutes of trach collar yesterday, became tachypneic. Trach care per RT. Supportive care. Increased secretions via trach - continue pulmonary toileting. CXR reviewed, demonstrates patchy airspace opacity, right lung base. Possible trace bilateral pleural effusions. No pneumothorax. Continue antibiotics/antifungal Head of bed elevation Aspiration precautions Accu-Cheks, ISS Mechanical DVT prophylaxis Monitor hemoglobin closely Monitor platelet count Monitor renal function Monitor electrolytes. Supplement as necessary. Potassium supplementation Labs and imaging reviewed. Rest of plan as noted below. Plan: On mechanical ventilator. S/p tracheostomy Titrate FIO2 to keep O2 saturation above 90%. Trach care Pulmonary toileting Pressors as necessary for hemodynamic support. Titrate to keep MAP greater than 65 mmHg. Continue antibiotics. Accu-Cheks, ISS Monitor hemoglobin Protonix for GI ppx Diurese with Lasix Monitor renal function Monitor electrolytes. Supplement as necessary. Monitor ins and outs. Maintain euvolemia. Obesity complicates all care. GI prophylaxis - Protonix Mechanical DVT prophylaxis Prognosis: Poor given patient's multiple co-morbidities. Rest of plan per hospitalist and other consultants. Thank you, Dr. Serra, for allowing me to participate in this patient's care. Further recommendations will depend on the patient's clinical course. Please do not hesitate to contact me if you have any questions or concerns. This medical document was created using an electronic medical record system with [employer] dictation system. Although these documentations are being carefully reviewed, there may still be some phonetic and typographical changes. The errors are purely typographical, due to imperfection on the software program, and do not reflect any compromise in the patient's medical care. Dietary Evaluation Review Comments: Nutrition Recommendation: 1. TF Vital AF 1.2 Luis Enrique @ 60 ml/hr. start @ 20ml/hr, increase 10ml/hr Q4H until goal is reached. TF at goal volume provides 100% energy & protein needs - 1728 kcal, 108 gm protein, 1168 ml free water 2. Water flush 140ml Q6H if allowed 3. TPN if NPO> 7 days Expected Outcomes/Goals: To meet >75% estimated needs Fu 2-3 days Plan discussed with: Patient, Other (DUDLEY Moore) VITO REDMOND MD May 24, 2025 23:15
[2025-05-25] VITALS (38 sets, daily range): BP systolic 116–175; BP diastolic 54–98; PULSE 53–86; RESP 11–35; TEMP 98.5–99; O2SAT 94–100
[2025-05-25 04:03] LABS: Hematocrit 34.3 % (41.0-53.0); Hemoglobin 11.4 g/dL (13.5-17.5); Mean Corpuscular Hemoglobin 30.1 pg (28.0-32.0); Mean Corpuscular Volume 90.8 fL (80.0-100.0); Nucleated Red Blood Cells % 0.1 %
[2025-05-25 04:05] LABS: Chloride 104 mmol/L (98-107); Potassium 3.8 mmol/L (3.5-5.1); Sodium 143 mmol/L (136-145)
[2025-05-25 04:06] LABS: Anion Gap 10 (5-15); Carbon Dioxide 29 mmol/L (20-31)
[2025-05-25 04:11] LABS: BUN/Creatinine Ratio 55.6 (10.0-20.0); Glucose 96 mg/dL (74-106)
[2025-05-25 04:33] LABS: Blood Urea Nitrogen 25 mg/dL (9-23); Calcium 8.4 mg/dL (8.7-10.4)
--- NOTE | 2025-05-25 05:06 | DVH ---
CHEST RADIOGRAPH Indication: INTUBATED Technique: Single frontal view of the chest was obtained COMPARISON: XY CHEST PORTABLE on DOS: 05/24/25, XY CHEST XRAY 1 VIEW on DOS: 05/23/25, XY CHEST XRAY 1 VIEW on DOS: 05/22/25, XY CHEST XRAY 1 VIEW on DOS: 05/21/25, XY CHEST PORTABLE on DOS: 05/20/25 FINDINGS: Lines and Tubes: Tracheostomy, enteric catheter and right PICC in satisfactory position Lungs: Congestion Pleura: No effusion. No pneumothorax. Cardiomediastinal contours: Unremarkable Bones: Unremarkable IMPRESSION: Lines and tubes in satisfactory position. No significant interval change.
[2025-05-25 07:28] LABS: Base Excess 3.5 mmol/L (-2.0-3.0)
--- NOTE | 2025-05-25 13:49 | DVHPNRES ---
Progress Note Date Seen: May 25, 2025 Resident Creating Document: ANSHUL DAY RESIDENT Has the PT tested + for MRSA If YES, has PT been informed?: No Medical Necessity Reason Pt with a Central, PICC or Fol: Yes The following are medically ne: PICC Line, Kenney Catheter Reason for kenney catheter: Strict I&O Subjective Review of Systems Patient is a 79-year-old male who presents with a chief complaint of bilateral leg swelling. He reports a chronic history of leg swelling, previously managed with a medication obtained from [place], the name of which he cannot recall. He admits to not taking this medication for some time. The patient is a poor historian but endorses a past medical history of diabetes mellitus (DM), hypertension (HTN), and an unspecified "heart issue." On triage, his blood pressure was markedly elevated at 180/116 mmHg with a pulse of 140 bpm. Given his history and current presentation, differential diagnoses include fluid retention possibly due to cardiac or renal insufficiency, medication noncompliance, electrolyte imbalance, and other systemic causes. past medical history: diabetes mellitus (DM), hypertension (HTN), and an unspecified "heart issue., COPD surgical history: none social history: denied smoking, alcohol, drug use home medications: not known HPI Patient presented to the hospital with elevated blood pressure, had shortness of breath with ABG showing respiratory acidosis following which the patient was put on BiPAP with mild improvement in respiratory status but eventually as his PCO2 levels remained elevated above 85mmhg and continued to have respiratory distress following which he was intubated and put on mechanical ventilation on 04/23. A right IJV CVC was attempted to be placed but it was misplaced and on CT angio neck it was seen coursing through the right neck entering into the right brachiocephalic artery and coursing into the aortic arch and Moderate soft tissue edema and intermediate density soft tissue in the deep right supraclavicular neck which could reflect blood products likely related to the malpositioned right central venous catheter. IR were consulted to remove the CVC and they did an angiogram and found Central line tip visualized in the aortic arch. Entrance site of the right central line is at the proximal subclavian artery adjacent to the vertebral artery. Removal of right central catheter from the artery shows no extravasation after balloon angioplasty and manual pressure. Completion angiogram shows patency of the right brachiocephalic, carotid, subclavian, and vertebral artery. ECHO showed LVEF 25% with severe LV and RV global hypokinesis following which the patient underwent coronary angiography for ischemic workup but no obstructive coronary artery disease were found. Patient was noted to have new onset atrial fibrillation/atrial flutter with intermittant RVR following which the patient was started on amiodarone which was discontinued shortly after given slow ventricular rate/pauses and patient was started on therapeutic lovenox. Patient was extubated on 05/02. On 05/03, neck bruise was seen to be expanding following which neck CT angio was done which showed Large hematoma in the right neck and upper chest. Active extravasation is present in the right supraclavicular soft-tissue possibly related to a small arterial branch from the right common carotid artery. Area of injury appears to correspond to course of prior arterial catheter which was removed on 04/24/2025. Lovenox was stopped. Patient was intubated again for airway protection. Interventional Radiology were consulted and CL ANGIO BRACHIAL RETRO S I was done and they found right brachiocephalic, subclavian, and carotid arteries are patent and unremarkable. The right vertebral artery, internal mammary, thyrocervical arteries appear patent. No contrast extravasation was visualized. No clear abnormality / contrast extravasation seen at the location of the prior central venous catheter insertion site on the proximal right subclavian artery. Patient was seen to have heart rate going into the 40s likely due to sick sinus syndrome following which fixed dose dopamine started. On 05/07 patient's hematoma was looking bigger following which CT angio was done which showed large heterogeneous hematoma in the right lower neck which measures 9.9 into 5.9 cm without any evidence of acute arterial extravasation. On 05/10 right shoulder hematoma again look to be increase in size but the hemoglobin and platelets were stable and the patient was hemodynamically stable. Patient was eventually weaned off dopamine and vasopressors and after extensive discussion with the family patient underwent a tracheostomy on 05/13 with a size 8.5 coughed nonfenestrated tracheostomy tube was placed. We started due reduced sedation and repeat CT angio of the neck showed right neck/scapular region hypodense collection/lesion measuring 10.5-5.6 cm similar to previous examination, no definitive extravasation was seen. Sputum cultures from the patient's 0 growth of Klebsiella pneumoniae Pseudomonas aeruginosa and bronchial washings from bronchoscopy done on 05/16 showed growth of yeast. Patient has been on meropenem and micafungin. Since 05/19 patient was tried to put on trach collar but initially he tolerated only 26 minutes and was placed on SIMV for 5 minutes started to have tachypnea and continued on assist-control. 05/25 Patient is alert and oriented and is responding to voice commands. Working with physical therapy and is able to sit on the edge of the bed. Neck hematoma is decreasing in size. Patient is tolerating increasing time duration on trach collar. He tolerated trach collar for 2 hours yesterday on 05/24 and was on SIMV mode throughout the day and was put on assist-control for the night. Patient tolerated trach collar from the morning till the evening today and will be put on SIMV overnight. Since his blood pressure is stable we will increase the dose of Entresto and add spironolactone to the GDMT. Patient has good urine output, last bowel movement was 2 days ago, low gastric residual volume and continued on tube feedings. Increase physical therapy to twice daily Objective vital signs Vital Sign Date Time Temp Pulse Resp B/P (MAP) Pulse Ox O2 Delivery O2 Flow Rate FiO2 05/25/25 12:00 30 05/25/25 12:00 72 05/25/25 12:00 99 Mechanical Ventilator+ 05/25/25 11:00 28 157/68 (97) 05/25/25 09:30 9 05/25/25 08:00 98.9 98.9 Total Intake and Output 05/24/25 05/24/25 05/25/25 15:00 23:00 07:00 Intake Total 150 ml 633 ml 670 ml Output Total 1450 ml 550 ml Balance 150 ml -817 ml 120 ml medications Current Medications Medications Dose Ordered Sig/Jose Alfredo Route Start Time Stop Time Status Last Admin Dose Admin Midazolam HCl 50 ml @ 1 mls/hr Q24H IV 04/23/25 23:15 05/16/25 23:03 4 MLS/HR Pantoprazole Sodium 40 mg DAILY IV 04/28/25 10:00 05/25/25 09:00 40 MG Sodium Chloride 10 ml QSHIFT@10,22 IV 05/01/25 10:00 05/25/25 09:00 10 ML Enteral Nutritional Formula 1,000 ml 60ML/HR GT 05/05/25 16:45 05/22/25 21:12 1,000 ML Atropine Sulfate 1 mg UD PRN IV 05/07/25 02:00 Dextrose 50 ml UD PRN IV 05/07/25 18:00 Insulin Human Regular ACHS SC 05/08/25 17:00 05/25/25 11:42 3 UNITS Diagnostic Test (Pha) 1 strip ACHS 05/08/25 17:00 05/25/25 11:42 1 STRIP Vancomycin HCl 150 ml @ 100 mls/hr Q12H IV 05/14/25 21:00 UNV Meropenem 50 ml @ 17 mls/hr Q8HR IV 05/14/25 22:00 05/25/25 06:46 17 MLS/HR Furosemide 40 mg DAILY IV 05/16/25 10:00 05/25/25 09:00 40 MG Alprazolam 0.25 mg Q8HP PRN NG 05/15/25 14:45 05/22/25 21:12 0.25 MG Acetaminophen 650 mg Q6HP PRN PO 05/16/25 19:15 05/22/25 21:12 650 MG Psyllium Hydrophilic Mucilloid 1 pkg DAILY PO 05/20/25 10:00 05/25/25 09:00 1 PKG Micafungin Sodium 100 mg/Sodium Chloride 100 ml @ 100 mls/hr DAILY IV 05/21/25 10:00 05/25/25 11:09 100 MLS/HR Empaglifozin 10 mg DAILY PO 05/21/25 10:00 05/25/25 10:00 10 MG Labetalol HCl 5 mg Q2HPRN PRN IV 05/20/25 16:45 05/21/25 16:25 5 MG Sacubitril/ Valsartan 1 tab BID PO 05/21/25 10:00 05/25/25 09:00 1 TAB Carvedilol 3.125 mg Q12HR PO 05/21/25 22:00 05/25/25 09:04 3.125 MG Examination Constitutional: Patient is alert and oriented and follows voice commands, currently on tracheostomy and is not on sedation. Gen - no pallor, no icterus, no cyanosis, no clubbing, no LAD, no edema . Skin - Patients skin is warm and dry. HEENT - normocephalic, atraumatic, moist mucous membranes. Neck - full ROM, no LAD, no JVD Pulmonary - B/L equal breath sounds with coarse rales, minimal expiratory wheezing, no stridor. cardiovascular - regular S1,S2 heard, no added sounds, no murmurs heard. peripheral pulses normal radial 2+, pedal 2+. capillary refill normal <2 secs. GI - soft, nontender abdomen. no hepatospleenomegaly. Bowel sounds normoactive Neurological - Patient is A/O and is responding to voice commands. Bilateral upper extremity strength 3/5, bilateral lower extremity strength 3/5, no facial droop, nonverbal because of tracheostomy, no tremor, no sensory deficiets. laboratory and microbiology Laboratory Tests 05/25/25 02:54 Test 05/25/25 02:54 Range/Units Serum Glucose 96 74-106 mg/dL Microbiology Date/Time Source Procedure Growth Status 05/20/25 12:10 Blood Blood Culture - Final NO GROWTH AFTER 5 DAYS OF INCUBATION. Complete 05/20/25 12:05 Pleural Fluid Gram Stain - Final Complete 05/20/25 12:05 Pleural Fluid Aerobic Culture - Final Complete 05/19/25 09:00 Stool Stool Culture - Final Complete 05/19/25 09:00 Stool Shiga Toxin I & II - Final Complete 05/16/25 10:50 Bronchial Washings Gram Stain - Final Complete 05/16/25 10:50 Respiratory Culture - Final Yeast, not Reena albicans Complete 05/12/25 12:44 Voided Urine Urine Culture - Final Complete 05/03/25 20:20 Trachea Gram Stain - Final Complete 05/03/25 20:20 Respiratory Culture - Final Pseudomonas aeruginosa Complete Problem List/Assessment/Plan Problem List/Assessment/Plan Neurology acute metabolic encephalopathy likely due to hypercarbic respiratory failure, resolved - no sedation - patient is alert, interacting using a sign board and following voice commands Cardiovascular 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 Neck hematoma S/p CBC removal from right brachiocephalic/subclavian artery New onset atrial fibrillation/atrial flutter (2-1) with a RVR, resolved Possible sick sinus syndrome Hypertensive heart disease with systolic failure - echocardiogram showed LVEF 25% with severe LV and RV global hypokinesis - goal directed medical therapy with carvedilol, Jardiance, Entresto, spironolactone and Lasix - no arrhythmias noted - most recent CT angio neck showed hematoma of 10.5 X5.6 cm with no active arterial extravasation - chads Vasc 5, but anticoagulation held because of hematoma Respiratory Acute on chronic hypercapnic respiratory failure likely due to COPD exacerbation, resolved S/p mechanical ventilation Pneumonia likely due to Gram +/-bacteria/fungus Pleural effusion likely parapneumonic Mixed metabolic alkalosis with respiratory alkalosis S/p bronchoscopy S/p tracheostomy Status post thoracentesis X 2 - on SIMV at night collar tolerated for 7 hours in the day on 05/25 - decreased secretions - levalbuterol and acetylcysteine q.8 hours - micafungin and levofloxacin Hem/onc Anemia, normochromic, normocytic Thrombocytopenia, resolved - Hemoglobin improving, continue monitoring - transfusion of 2 apheresis of platelets previously Endocrinology/gastroenterology DM type 2, hba1c 6.7 - ISS, moderate - Tube feedings - lactulose b.i.d. Renal Hyperkalemia, resolved BAO due to VMN resolved Hypernatremia mild, resolved - continue monitoring electrolytes and kidney function - net-11 L balance since the patient has been in the hospital - about 1300 mL urine output every shift DVT prophylaxis: No anticoagulation as patient has high-risk of bleeding PUD prophylaxis: Protonix PICC line right upper arm 05/01/25 Tracheostomy 0 05/13 kenney catheter changed on 04/19/25 tracheostomy tube 05/13/25 Code status: full code Goals of care discussed with the patient's daughter at bedside for over 33 minutes. Critical care time spent excluding procedures: 81 minutes Plan discussed with Dr. Corrales Plan discussed with: Daughter, Other (DUDLEY Moore) Dietary Evaluation Review Comments: Nutrition Recommendation: 1. TF Vital AF 1.2 Luis Enrique @ 60 ml/hr. start @ 20ml/hr, increase 10ml/hr Q4H until goal is reached. TF at goal volume provides 100% energy & protein needs - 1728 kcal, 108 gm protein, 1168 ml free water 2. Water flush 140ml Q6H if allowed 3. TPN if NPO> 7 days Expected Outcomes/Goals: To meet >75% estimated needs Fu 2-3 days Date of Service: May 25, 2025 Billing Provider: PAMELA CORRALES MD Common Visit Codes: 89754-VLHAGPXJ CARE 30-74 MIN, 03293-BHEMMZIB CARE-EACH +30MIN ANSHUL DAY RESIDENT May 25, 2025 13:49 PAMELA CORRALES MD May 26, 2025 14:00
[2025-05-25] MEDS: SPIRONOLACTONE 25 MG TAB PO ONE (16:11)
[2025-05-25] MEDS: ACETYLCYSTEINE 20%(200MG/ML) SOL 4ML ONE (18:12)
[2025-05-25] MEDS: SACUBITRIL-VALSARTAN 24mg/26mg TAB PO SCH (22:02)
[2025-05-25] MEDS: ACETYLCYSTEINE 20%(200MG/ML) SOL 4ML NEB SCH (22:23)
[2025-05-25] MEDS: LEVALBUTEROL HCL 1.25 MG/3 ML NEB NEB SCH (22:23)
[2025-05-26] VITALS (41 sets, daily range): BP systolic 113–166; BP diastolic 45–114; PULSE 62–81; RESP 11–33; TEMP 97.8–99.9; O2SAT 93–100
[2025-05-26 03:49] LABS: Hematocrit 35.7 % (41.0-53.0); Hemoglobin 11.9 g/dL (13.5-17.5); Mean Corpuscular Hemoglobin 30.3 pg (28.0-32.0); Mean Corpuscular Volume 90.9 fL (80.0-100.0); Nucleated Red Blood Cells % 0.1 %
[2025-05-26 03:52] LABS: Chloride 104 mmol/L (98-107); Potassium 3.8 mmol/L (3.5-5.1); Sodium 142 mmol/L (136-145)
[2025-05-26 03:53] LABS: Anion Gap 7 (5-15); Calcium 8.8 mg/dL (8.7-10.4); Carbon Dioxide 31 mmol/L (20-31)
[2025-05-26 03:58] LABS: BUN/Creatinine Ratio 57.4 (10.0-20.0)
[2025-05-26 04:17] LABS: Blood Urea Nitrogen 27 mg/dL (9-23); Glucose 135 mg/dL (74-106)
--- NOTE | 2025-05-26 05:25 | DVH ---
CHEST RADIOGRAPH Indication: SOB Technique: Single frontal view of the chest was obtained COMPARISON: XY CHEST XRAY 1 VIEW on DOS: 05/25/25, XY CHEST PORTABLE on DOS: 05/24/25, XY CHEST XRAY 1 VIEW on DOS: 05/23/25, XY CHEST XRAY 1 VIEW on DOS: 05/22/25, XY CHEST XRAY 1 VIEW on DOS: 05/21/25 FINDINGS: Lines and Tubes: Tracheostomy and enteric catheter in satisfactory position. Right PICC in satisfact ory position. Lungs: Mild congestion Pleura: No effusion. No pneumothorax. Cardiomediastinal contours: Unremarkable Bones: Unremarkable IMPRESSION: Lines and tubes in satisfactory position. No significant interval change.
[2025-05-26 07:18] LABS: Base Excess 5.0 mmol/L (-2.0-3.0)
[2025-05-26] MEDS: SPIRONOLACTONE 25 MG TAB NG SCH (09:41)
[2025-05-26] MEDS ORDERED: SPIRONOLACTONE 25 MG TAB PO SCH (10:00)
--- NOTE | 2025-05-26 11:09 | DVHPNRES ---
Progress Note Date Seen: May 26, 2025 Resident Creating Document: ANSHUL DAY RESIDENT Has the PT tested + for MRSA If YES, has PT been informed?: No Medical Necessity Reason Pt with a Central, PICC or Fol: Yes The following are medically ne: PICC Line, Kenney Catheter Reason for kenney catheter: Strict I&O Subjective Review of Systems Patient is a 79-year-old male who presents with a chief complaint of bilateral leg swelling. He reports a chronic history of leg swelling, previously managed with a medication obtained from [place], the name of which he cannot recall. He admits to not taking this medication for some time. The patient is a poor historian but endorses a past medical history of diabetes mellitus (DM), hypertension (HTN), and an unspecified "heart issue." On triage, his blood pressure was markedly elevated at 180/116 mmHg with a pulse of 140 bpm. Given his history and current presentation, differential diagnoses include fluid retention possibly due to cardiac or renal insufficiency, medication noncompliance, electrolyte imbalance, and other systemic causes. past medical history: diabetes mellitus (DM), hypertension (HTN), and an unspecified "heart issue., COPD surgical history: none social history: denied smoking, alcohol, drug use home medications: not known Patient presented to the hospital with elevated blood pressure, had shortness of breath with ABG showing respiratory acidosis following which the patient was put on BiPAP with mild improvement in respiratory status but eventually as his PCO2 levels remained elevated above 85mmhg and continued to have respiratory distress following which he was intubated and put on mechanical ventilation on 04/23. A right IJV CVC was attempted to be placed but it was misplaced and on CT angio neck it was seen coursing through the right neck entering into the right brachiocephalic artery and coursing into the aortic arch and Moderate soft tissue edema and intermediate density soft tissue in the deep right supraclavicular neck which could reflect blood products likely related to the malpositioned right central venous catheter. IR were consulted to remove the CVC and they did an angiogram and found Central line tip visualized in the aortic arch. Entrance site of the right central line is at the proximal subclavian artery adjacent to the vertebral artery. Removal of right central catheter from the artery shows no extravasation after balloon angioplasty and manual pressure. Completion angiogram shows patency of the right brachiocephalic, carotid, subclavian, and vertebral artery. ECHO showed LVEF 25% with severe LV and RV global hypokinesis following which the patient underwent coronary angiography for ischemic workup but no obstructive coronary artery disease were found. Patient was noted to have new onset atrial fibrillation/atrial flutter with intermittant RVR following which the patient was started on amiodarone which was discontinued shortly after given slow ventricular rate/pauses and patient was started on therapeutic lovenox. Patient was extubated on 05/02. On 05/03, neck bruise was seen to be expanding following which neck CT angio was done which showed Large hematoma in the right neck and upper chest. Active extravasation is present in the right supraclavicular soft-tissue possibly related to a small arterial branch from the right common carotid artery. Area of injury appears to correspond to course of prior arterial catheter which was removed on 04/24/2025. Lovenox was stopped. Patient was intubated again for airway protection. Interventional Radiology were consulted and CL ANGIO BRACHIAL RETRO S I was done and they found right brachiocephalic, subclavian, and carotid arteries are patent and unremarkable. The right vertebral artery, internal mammary, thyrocervical arteries appear patent. No contrast extravasation was visualized. No clear abnormality / contrast extravasation seen at the location of the prior central venous catheter insertion site on the proximal right subclavian artery. Patient was seen to have heart rate going into the 40s likely due to sick sinus syndrome following which fixed dose dopamine started. On 05/07 patient's hematoma was looking bigger following which CT angio was done which showed large heterogeneous hematoma in the right lower neck which measures 9.9 into 5.9 cm without any evidence of acute arterial extravasation. On 05/10 right shoulder hematoma again look to be increase in size but the hemoglobin and platelets were stable and the patient was hemodynamically stable. Patient was eventually weaned off dopamine and vasopressors and after extensive discussion with the family patient underwent a tracheostomy on 05/13 with a size 8.5 coughed nonfenestrated tracheostomy tube was placed. We started due reduced sedation and repeat CT angio of the neck showed right neck/scapular region hypodense collection/lesion measuring 10.5-5.6 cm similar to previous examination, no definitive extravasation was seen. Sputum cultures from the patient's 0 growth of Klebsiella pneumoniae Pseudomonas aeruginosa and bronchial washings from bronchoscopy done on 05/16 showed growth of yeast. Patient has been on meropenem and micafungin. Since 05/19 patient was tried to put on trach collar but initially he tolerated only 26 minutes and was placed on SIMV for 5 minutes started to have tachypnea and continued on assist-control. Review of systems 05/26 Patient seen and examined at the bedside. Patient is alert and is responding to voice commands and does not report of any acute pain signals to be feeling better. Overnight patient had about 700 mL urine output, temperature noted to be at 99.6 F on 1 occasion and decreased secretions from the tracheostomy aspirated. Patient's BUN to creatinine ratio is elevated and on physical examination has decreased skin turgor. Physical therapy working with the patient twice daily and he is able to sit on the edge of the bed Lasix converted to p.o. and micafungin stopped Objective vital signs Vital Sign Date Time Temp Pulse Resp B/P (MAP) Pulse Ox O2 Delivery O2 Flow Rate FiO2 05/26/25 10:30 76 26 96 05/26/25 10:00 Mechanical Ventilator+ 30 30 05/26/25 08:28 8.0 05/26/25 08:00 98.8 98.8 Total Intake and Output 05/25/25 05/25/25 05/26/25 14:59 22:59 06:59 Intake Total 150 ml 700 ml 617 ml Output Total 1600 ml 675 ml Balance 150 ml -900 ml -58 ml medications Current Medications Medications Dose Ordered Sig/Jose Alfredo Route Start Time Stop Time Status Last Admin Dose Admin Midazolam HCl 50 ml @ 1 mls/hr Q24H IV 04/23/25 23:15 05/16/25 23:03 4 MLS/HR Pantoprazole Sodium 40 mg DAILY IV 04/28/25 10:00 05/26/25 09:31 40 MG Sodium Chloride 10 ml QSHIFT@10,22 IV 05/01/25 10:00 05/26/25 09:31 10 ML Enteral Nutritional Formula 1,000 ml 60ML/HR GT 05/05/25 16:45 05/22/25 21:12 1,000 ML Atropine Sulfate 1 mg UD PRN IV 05/07/25 02:00 Dextrose 50 ml UD PRN IV 05/07/25 18:00 Insulin Human Regular ACHS SC 05/08/25 17:00 05/26/25 05:57 3 UNITS Diagnostic Test (Pha) 1 strip ACHS 05/08/25 17:00 05/26/25 05:57 1 STRIP Vancomycin HCl 150 ml @ 100 mls/hr Q12H IV 05/14/25 21:00 UNV Furosemide 40 mg DAILY IV 05/16/25 10:00 05/25/25 09:00 40 MG Alprazolam 0.25 mg Q8HP PRN NG 05/15/25 14:45 05/22/25 21:12 0.25 MG Acetaminophen 650 mg Q6HP PRN PO 05/16/25 19:15 05/22/25 21:12 650 MG Psyllium Hydrophilic Mucilloid 1 pkg DAILY PO 05/20/25 10:00 05/25/25 09:00 1 PKG Micafungin Sodium 100 mg/Sodium Chloride 100 ml @ 100 mls/hr DAILY IV 05/21/25 10:00 05/26/25 09:34 100 MLS/HR Empaglifozin 10 mg DAILY PO 05/21/25 10:00 05/26/25 09:25 10 MG Labetalol HCl 5 mg Q2HPRN PRN IV 05/20/25 16:45 05/25/25 16:55 5 MG Carvedilol 3.125 mg Q12HR PO 05/21/25 22:00 05/26/25 09:24 3.125 MG Sacubitril/ Valsartan 1.5 tab BID PO 05/25/25 22:00 05/26/25 09:24 1.5 TAB Levofloxacin/ Dextrose 100 ml @ 100 mls/hr DAILY IV 05/26/25 10:00 05/26/25 09:31 100 MLS/HR Spironolactone 25 mg DAILY NG 05/26/25 10:00 05/26/25 09:41 25 MG Levalbuterol HCl 0.625 mg Q8HR NEB 05/25/25 22:00 05/26/25 06:07 0.625 MG Acetylcysteine 200 mg Q8HR NEB 05/25/25 22:00 05/26/25 06:07 200 MG Examination Constitutional: Patient is alert and oriented and follows voice commands, currently on tracheostomy and is not on sedation. Gen - no pallor, no icterus, no cyanosis, no clubbing, no LAD, no edema . Skin - Patients skin is warm and dry. HEENT - normocephalic, atraumatic, moist mucous membranes. Neck -right supraclavicular hematoma with a bluish discoloration, no LAD, no JVD Pulmonary - B/L equal breath sounds with coarse rales, minimal expiratory wheezing, no stridor. cardiovascular - regular S1,S2 heard, no added sounds, no murmurs heard. peripheral pulses normal radial 2+, pedal 2+. capillary refill normal <2 secs. GI - soft, nontender abdomen. no hepatospleenomegaly. Bowel sounds normoactive Neurological - Patient is A/O and is responding to voice commands. Bilateral upper extremity strength 3/5, bilateral lower extremity strength 3/5, no facial droop, nonverbal because of tracheostomy, no tremor, no sensory deficiets. laboratory and microbiology Laboratory Tests 05/26/25 02:54 Test 05/26/25 02:54 Range/Units Serum Glucose 135 H 74-106 mg/dL Microbiology Date/Time Source Procedure Growth Status 05/20/25 12:10 Blood Blood Culture - Final NO GROWTH AFTER 5 DAYS OF INCUBATION. Complete 05/20/25 12:05 Pleural Fluid Gram Stain - Final Complete 05/20/25 12:05 Pleural Fluid Aerobic Culture - Final Complete 05/19/25 09:00 Stool Stool Culture - Final Complete 05/19/25 09:00 Stool Shiga Toxin I & II - Final Complete 05/16/25 10:50 Bronchial Washings Gram Stain - Final Complete 05/16/25 10:50 Respiratory Culture - Final Yeast, not Reena albicans Complete 05/12/25 12:44 Voided Urine Urine Culture - Final Complete 05/03/25 20:20 Trachea Gram Stain - Final Complete 05/03/25 20:20 Respiratory Culture - Final Pseudomonas aeruginosa Complete Problem List/Assessment/Plan Problem List/Assessment/Plan Neurology acute metabolic encephalopathy likely due to hypercarbic respiratory failure, resolved - no sedation - patient is alert, interacting using a sign board and following voice commands Cardiovascular 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 Neck hematoma S/p CVC removal from right brachiocephalic/subclavian artery New onset atrial fibrillation/atrial flutter (2-1) with a RVR, resolved Possible sick sinus syndrome Hypertensive heart disease with systolic failure - echocardiogram showed LVEF 25% with severe LV and RV global hypokinesis - goal directed medical therapy with carvedilol, Jardiance, Entresto, spironolactone and Lasix - no arrhythmias noted - most recent CT angio neck showed hematoma of 10.5 X5.6 cm with no active arterial extravasation - chads Vasc 5, but anticoagulation held because of hematoma Respiratory Acute on chronic hypercapnic respiratory failure likely due to COPD exacerbation, resolved S/p mechanical ventilation Pneumonia likely due to Gram +/-bacteria/fungus Pleural effusion likely parapneumonic Mixed metabolic alkalosis with respiratory alkalosis S/p bronchoscopy S/p tracheostomy Status post thoracentesis X 2 - on SIMV at night, trach collar throughout the day on 05/26 - decreased secretions - levalbuterol and acetylcysteine q.8 hours - micafungin stopped and continued on levofloxacin Hem/onc Anemia, normochromic, normocytic Thrombocytopenia, resolved - Hemoglobin improving, continue monitoring - transfusion of 2 apheresis of platelets previously Endocrinology/gastroenterology DM type 2, hba1c 6.7 - ISS, moderate - Tube feedings - lactulose b.i.d. Renal Hyperkalemia, resolved BAO due to VMN resolved Hypernatremia mild, resolved - continue monitoring electrolytes and kidney function DVT prophylaxis: No anticoagulation as patient has high-risk of bleeding PUD prophylaxis: Protonix PICC line right upper arm 05/01/25 Tracheostomy 0 05/13 kenney catheter changed on 04/19/25 tracheostomy tube 05/13/25 Code status: full code Goals of care discussed with the patient's daughter at bedside Critical care time spent excluding procedures: 83 minutes Plan discussed with Dr. Corrales Plan discussed with: Daughter, Other (DUDLEY Abdullahi) My Orders My Orders Orders - ANSHUL DAY RESIDENT Procedure Category Date Status Time Sacubitril-Valsartan PHA 05/25/25 In Process (Entresto 24-26 Mg 22:00 Levofloxacin 500mg PHA 05/26/25 In Process (Levaquin 500mg/ 100m 10:00 Spironolactone PHA 05/26/25 In Process (Aldactone) 10:00 Levalbuterol Hcl PHA 05/25/25 In Process (Xopenex Medneb) 22:00 Acetylcysteine PHA 05/25/25 In Process Inhalation 20% 22:00 Chest Xray 1 View XY 05/26/25 Resulted 04:00 Abg W/ Co-Ox RT 05/26/25 Logged 04:00 Dietary Evaluation Review Comments: Nutrition Recommendation: 1. TF Vital AF 1.2 Luis Enrique @ 60 ml/hr. start @ 20ml/hr, increase 10ml/hr Q4H until goal is reached. TF at goal volume provides 100% energy & protein needs - 1728 kcal, 108 gm protein, 1168 ml free water 2. Water flush 140ml Q6H if allowed 3. TPN if NPO> 7 days Expected Outcomes/Goals: To meet >75% estimated needs Fu 2-3 days Date of Service: May 26, 2025 Billing Provider: PAMELA CORRALES MD Common Visit Codes: 17059-[id number] CARE 30-74 MIN, [id number] CARE-EACH +30MIN ANSHUL DAY RESIDENT May 26, 2025 11:09 PAMELA CORRALES MD May 27, 2025 14:27
[2025-05-26] MEDS: LACTULOSE 20Gm/30ML SOLN PO SCH (21:38)
[2025-05-26] MEDS: SACUBITRIL-VALSARTAN 24mg/26mg TAB PO SCH (21:39)
[2025-05-27] VITALS (34 sets, daily range): BP systolic 114–171; BP diastolic 50–104; PULSE 63–80; RESP 11–29; TEMP 98.2–99.4; O2SAT 92–99
[2025-05-27 04:11] LABS: Anion Gap 7 (5-15); Calcium 8.9 mg/dL (8.7-10.4); Carbon Dioxide 30 mmol/L (20-31); Chloride 106 mmol/L (98-107); Potassium 4.0 mmol/L (3.5-5.1); Sodium 143 mmol/L (136-145)
[2025-05-27 04:13] LABS: Hematocrit 35.0 % (41.0-53.0); Hemoglobin 11.7 g/dL (13.5-17.5); Mean Corpuscular Hemoglobin 30.8 pg (28.0-32.0); Mean Corpuscular Volume 91.7 fL (80.0-100.0); Nucleated Red Blood Cells % 0.0 %
[2025-05-27 04:17] LABS: BUN/Creatinine Ratio 54.0 (10.0-20.0)
[2025-05-27 04:32] LABS: Blood Urea Nitrogen 27 mg/dL (9-23); Glucose 163 mg/dL (74-106)
--- NOTE | 2025-05-27 04:48 | DVH ---
CHEST RADIOGRAPH Indication: On trach, hfref Technique: Single frontal view of the chest was obtained Comparison: XY CHEST XRAY 1 VIEW on DOS: 05/26/25 FINDINGS: Lines and Tubes: Right PICC, tracheostomy tube and enteric tube are unchanged. Lungs: Right basilar airspace disease, unchanged. Mild pulmonary venous congestion is unchanged. Pleura: No effusion. No pneumothorax. Cardiomediastinal contours: Unremarkable Bones: No acute osseous abnormality. IMPRESSION: 1. Stable lines and tubes. 2. Right basilar airspace disease, unchanged. Mild pulmonary venous congestion is unchanged.
[2025-05-27 07:39] LABS: Base Excess 2.6 mmol/L (-2.0-3.0)
[2025-05-27] MEDS: FUROSEMIDE 40 MG TAB PO SCH (10:01)
--- NOTE | 2025-05-27 10:25 | DVHPNRES ---
Progress Note Date Seen: May 27, 2025 Resident Creating Document: ANSHUL DAY RESIDENT Has the PT tested + for MRSA If YES, has PT been informed?: No Medical Necessity Reason Pt with a Central, PICC or Fol: Yes The following are medically ne: PICC Line, Kenney Catheter Reason for kenney catheter: Strict I&O Subjective Review of Systems Patient is a 79-year-old male who presents with a chief complaint of bilateral leg swelling. He reports a chronic history of leg swelling, previously managed with a medication obtained from [place], the name of which he cannot recall. He admits to not taking this medication for some time. The patient is a poor historian but endorses a past medical history of diabetes mellitus (DM), hypertension (HTN), and an unspecified "heart issue." On triage, his blood pressure was markedly elevated at 180/116 mmHg with a pulse of 140 bpm. Given his history and current presentation, differential diagnoses include fluid retention possibly due to cardiac or renal insufficiency, medication noncompliance, electrolyte imbalance, and other systemic causes. past medical history: diabetes mellitus (DM), hypertension (HTN), and an unspecified "heart issue., COPD surgical history: none social history: denied smoking, alcohol, drug use home medications: not known Patient presented to the hospital with elevated blood pressure, had shortness of breath with ABG showing respiratory acidosis following which the patient was put on BiPAP with mild improvement in respiratory status but eventually as his PCO2 levels remained elevated above 85mmhg and continued to have respiratory distress following which he was intubated and put on mechanical ventilation on 04/23. A right IJV CVC was attempted to be placed but it was misplaced and on CT angio neck it was seen coursing through the right neck entering into the right brachiocephalic artery and coursing into the aortic arch and Moderate soft tissue edema and intermediate density soft tissue in the deep right supraclavicular neck which could reflect blood products likely related to the malpositioned right central venous catheter. IR were consulted to remove the CVC and they did an angiogram and found Central line tip visualized in the aortic arch. Entrance site of the right central line is at the proximal subclavian artery adjacent to the vertebral artery. Removal of right central catheter from the artery shows no extravasation after balloon angioplasty and manual pressure. Completion angiogram shows patency of the right brachiocephalic, carotid, subclavian, and vertebral artery. ECHO showed LVEF 25% with severe LV and RV global hypokinesis following which the patient underwent coronary angiography for ischemic workup but no obstructive coronary artery disease were found. Patient was noted to have new onset atrial fibrillation/atrial flutter with intermittant RVR following which the patient was started on amiodarone which was discontinued shortly after given slow ventricular rate/pauses and patient was started on therapeutic lovenox. Patient was extubated on 05/02. On 05/03, neck bruise was seen to be expanding following which neck CT angio was done which showed Large hematoma in the right neck and upper chest. Active extravasation is present in the right supraclavicular soft-tissue possibly related to a small arterial branch from the right common carotid artery. Area of injury appears to correspond to course of prior arterial catheter which was removed on 04/24/2025. Lovenox was stopped. Patient was intubated again for airway protection. Interventional Radiology were consulted and CL ANGIO BRACHIAL RETRO S I was done and they found right brachiocephalic, subclavian, and carotid arteries are patent and unremarkable. The right vertebral artery, internal mammary, thyrocervical arteries appear patent. No contrast extravasation was visualized. No clear abnormality / contrast extravasation seen at the location of the prior central venous catheter insertion site on the proximal right subclavian artery. Patient was seen to have heart rate going into the 40s likely due to sick sinus syndrome following which fixed dose dopamine started. On 05/07 patient's hematoma was looking bigger following which CT angio was done which showed large heterogeneous hematoma in the right lower neck which measures 9.9 into 5.9 cm without any evidence of acute arterial extravasation. On 05/10 right shoulder hematoma again look to be increase in size but the hemoglobin and platelets were stable and the patient was hemodynamically stable. Patient was eventually weaned off dopamine and vasopressors and after extensive discussion with the family patient underwent a tracheostomy on 05/13 with a size 8.5 coughed nonfenestrated tracheostomy tube was placed. We started due reduced sedation and repeat CT angio of the neck showed right neck/scapular region hypodense collection/lesion measuring 10.5-5.6 cm similar to previous examination, no definitive extravasation was seen. Sputum cultures from the patient's 0 growth of Klebsiella pneumoniae Pseudomonas aeruginosa and bronchial washings from bronchoscopy done on 05/16 showed growth of yeast. Patient has been on meropenem and micafungin. Since 05/19 patient was tried to put on trach collar but initially he tolerated only 26 minutes and was placed on SIMV for 5 minutes started to have tachypnea and continued on assist-control. Review of systems 05/26 Patient seen and examined at the bedside. Patient is alert and is responding to voice commands and does not report of any acute pain signals to be feeling better. Overnight patient had about 750 mL urine output, temperature noted to be at 99.9 F on 1 occasion and decreased secretions from the tracheostomy aspirated. Physical therapy working with the patient twice daily and he is able to sit on the edge of the bed Patient tolerated trach collar followed the day yesterday and was on SIMV mode overnight. Today patient will be tried to put on the trach collar for 24 hours No bowel movement yet, normoactive bowel sounds Objective vital signs Vital Sign Date Time Temp Pulse Resp B/P (MAP) Pulse Ox O2 Delivery O2 Flow Rate FiO2 05/27/25 10:01 134/61 05/27/25 09:59 77 05/27/25 06:55 94 Trach Collar 8 30 05/27/25 06:00 11 05/27/25 04:00 99.2 99.2 Total Intake and Output 05/26/25 05/26/25 05/27/25 15:00 23:00 07:00 Intake Total 200 ml 670 ml 577 ml Output Total 800 ml 750 ml Balance 200 ml -130 ml -173 ml medications Current Medications Medications Dose Ordered Sig/Jose Alfredo Route Start Time Stop Time Status Last Admin Dose Admin Midazolam HCl 50 ml @ 1 mls/hr Q24H IV 04/23/25 23:15 05/16/25 23:03 4 MLS/HR Pantoprazole Sodium 40 mg DAILY IV 04/28/25 10:00 05/27/25 09:49 40 MG Sodium Chloride 10 ml QSHIFT@ IV 05/01/25 10:00 05/27/25 09:49 10 ML Enteral Nutritional Formula 1,000 ml 60ML/HR GT 05/05/25 16:45 05/26/25 21:40 1,000 ML Atropine Sulfate 1 mg UD PRN IV 05/07/25 02:00 Dextrose 50 ml UD PRN IV 05/07/25 18:00 Insulin Human Regular ACHS SC 05/08/25 17:00 05/27/25 06:30 3 UNITS Diagnostic Test (Pha) 1 strip ACHS 05/08/25 17:00 05/27/25 06:31 1 STRIP Vancomycin HCl 150 ml @ 100 mls/hr Q12H IV 05/14/25 21:00 UNV Alprazolam 0.25 mg Q8HP PRN NG 05/15/25 14:45 05/22/25 21:12 0.25 MG Acetaminophen 650 mg Q6HP PRN PO 05/16/25 19:15 05/22/25 21:12 650 MG Psyllium Hydrophilic Mucilloid 1 pkg DAILY PO 05/20/25 10:00 05/25/25 09:00 1 PKG Empaglifozin 10 mg DAILY PO 05/21/25 10:00 05/27/25 10:00 10 MG Labetalol HCl 5 mg Q2HPRN PRN IV 05/20/25 16:45 05/25/25 16:55 5 MG Carvedilol 3.125 mg Q12HR PO 05/21/25 22:00 05/27/25 09:59 3.125 MG Levofloxacin/ Dextrose 100 ml @ 100 mls/hr DAILY IV 05/26/25 10:00 05/27/25 09:48 100 MLS/HR Spironolactone 25 mg DAILY NG 05/26/25 10:00 05/26/25 09:41 25 MG Levalbuterol HCl 0.625 mg Q8HR NEB 05/25/25 22:00 05/27/25 06:35 0.625 MG Acetylcysteine 200 mg Q8HR NEB 05/25/25 22:00 05/27/25 06:35 200 MG Sacubitril/ Valsartan 2 tab BID PO 05/26/25 22:00 05/26/25 21:39 2 TAB Furosemide 40 mg DAILY PO 05/27/25 10:00 05/27/25 10:01 40 MG Lactulose 15 ml BID PO 05/26/25 22:00 05/27/25 09:59 15 ML Examination Constitutional: Patient is alert and oriented and follows voice commands, currently on tracheostomy and is not on sedation. Gen - no pallor, no icterus, no cyanosis, no clubbing, no LAD, no edema . Skin - Patients skin is warm and dry. HEENT - normocephalic, atraumatic, moist mucous membranes. Neck -right supraclavicular hematoma with a bluish discoloration decreasing in size, no LAD, no JVD Pulmonary - B/L equal breath sounds with coarse rales, minimal expiratory wheezing, no stridor. cardiovascular - regular S1,S2 heard, no added sounds, no murmurs heard. peripheral pulses normal radial 2+, pedal 2+. capillary refill normal <2 secs. GI - soft, nontender abdomen. no hepatospleenomegaly. Bowel sounds normoactive Neurological - Patient is A/O and is responding to voice commands. Bilateral upper extremity strength 4/5, bilateral lower extremity strength 4/5, no facial droop, nonverbal because of tracheostomy, no tremor, no sensory deficiets. laboratory and microbiology Laboratory Tests 05/27/25 03:20 Test 05/27/25 03:20 Range/Units Serum Glucose 163 H 74-106 mg/dL Microbiology Date/Time Source Procedure Growth Status 05/20/25 12:10 Blood Blood Culture - Final NO GROWTH AFTER 5 DAYS OF INCUBATION. Complete 05/20/25 12:05 Pleural Fluid Gram Stain - Final Complete 05/20/25 12:05 Pleural Fluid Aerobic Culture - Final Complete 05/19/25 09:00 Stool Stool Culture - Final Complete 05/19/25 09:00 Stool Shiga Toxin I & II - Final Complete 05/16/25 10:50 Bronchial Washings Gram Stain - Final Complete 05/16/25 10:50 Respiratory Culture - Final Yeast, not Reena albicans Complete 05/12/25 12:44 Voided Urine Urine Culture - Final Complete 05/03/25 20:20 Trachea Gram Stain - Final Complete 05/03/25 20:20 Respiratory Culture - Final Pseudomonas aeruginosa Complete Problem List/Assessment/Plan Problem List/Assessment/Plan Neurology acute metabolic encephalopathy likely due to hypercarbic respiratory failure, resolved - no sedation - patient is alert, interacting using a sign board and following voice commands Cardiovascular 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 Neck hematoma S/p CVC removal from right brachiocephalic/subclavian artery New onset atrial fibrillation/atrial flutter (2-1) with a RVR, resolved Possible sick sinus syndrome Hypertensive heart disease with systolic failure - echocardiogram showed LVEF 25% with severe LV and RV global hypokinesis - goal directed medical therapy with carvedilol, Jardiance, Entresto, spironolactone and Lasix - no arrhythmias noted - most recent CT angio neck showed hematoma of 10.5 X5.6 cm with no active arterial extravasation - chads Vasc 5, but anticoagulation held because of hematoma Respiratory Acute on chronic hypercapnic respiratory failure likely due to COPD exacerbation, resolved S/p mechanical ventilation Pneumonia likely due to Gram +/-bacteria/fungus Pleural effusion likely parapneumonic Mixed metabolic alkalosis with respiratory alkalosis S/p bronchoscopy S/p tracheostomy Status post thoracentesis X 2 - on SIMV at night, trach collar throughout the day on 05/27 - decreased secretions - levalbuterol and acetylcysteine q.8 hours - on levofloxacin - to be on trach collar throughout the night Hem/onc Anemia, normochromic, normocytic Thrombocytopenia, resolved - Hemoglobin improving, continue monitoring - transfusion of 2 apheresis of platelets previously Endocrinology/gastroenterology DM type 2, hba1c 6.7 - ISS, moderate - Tube feedings - lactulose b.i.d. - Bowel movement noted Renal Hyperkalemia, resolved BAO due to VMN resolved Hypernatremia mild, resolved - continue monitoring electrolytes and kidney function DVT prophylaxis: No anticoagulation as patient has high-risk of bleeding PUD prophylaxis: Protonix PICC line right upper arm 05/01/25 Tracheostomy 0 05/13 kenney catheter changed on 04/19/25 tracheostomy tube 05/13/25 Code status: full code Goals of care discussed with the patient's daughter at bedside Critical care time spent excluding procedures: 81 minutes Plan discussed with Dr. Corrales Plan discussed with: Daughter My Orders My Orders Orders - ANSHUL DAY RESIDENT Procedure Category Date Status Time Sacubitril-Valsartan PHA 05/26/25 In Process (Entresto 24-26 Mg 22:00 Chest Xray 1 View XY 05/27/25 Resulted 04:00 Abg W/ Co-Ox RT 05/27/25 Logged 04:00 Lactulose Oral PHA 05/26/25 In Process 22:00 Furosemide Tablet PHA 05/27/25 In Process (Lasix Tablet) 10:00 Dietary Evaluation Review Comments: Nutrition Recommendation: 1. TF Vital AF 1.2 Luis Enrique @ 60 ml/hr. start @ 20ml/hr, increase 10ml/hr Q4H until goal is reached. TF at goal volume provides 100% energy & protein needs - 1728 kcal, 108 gm protein, 1168 ml free water 2. Water flush 140ml Q6H if allowed 3. TPN if NPO> 7 days Expected Outcomes/Goals: To meet >75% estimated needs Fu 2-3 days Date of Service: May 27, 2025 Billing Provider: PAMELA CORRALES MD Common Visit Codes: 64240-QPBJXTMG CARE 30-74 MIN, 98015-[id number] CARE-EACH +30MIN ANSHUL DAY RESIDENT May 27, 2025 10:24 PAMELA CORRALES MD May 28, 2025 11:30
[2025-05-27] MEDS ORDERED: LACTULOSE 20Gm/30ML SOLN PO SCH (22:00)
[2025-05-28] VITALS (31 sets, daily range): BP systolic 118–172; BP diastolic 57–79; PULSE 63–84; RESP 12–30; TEMP 98.2–99.2; O2SAT 92–98
[2025-05-28 04:13] LABS: Hematocrit 40.4 % (41.0-53.0); Hemoglobin 12.7 g/dL (13.5-17.5); Mean Corpuscular Hemoglobin 30.3 pg (28.0-32.0); Mean Corpuscular Volume 96.6 fL (80.0-100.0); Nucleated Red Blood Cells % 0.2 %
[2025-05-28 04:23] LABS: Chloride 106 mmol/L (98-107); Potassium 4.3 mmol/L (3.5-5.1); Sodium 141 mmol/L (136-145)
[2025-05-28 04:24] LABS: Anion Gap 9 (5-15); Carbon Dioxide 26 mmol/L (20-31)
[2025-05-28 04:25] LABS: Calcium 8.8 mg/dL (8.7-10.4)
[2025-05-28 04:29] LABS: BUN/Creatinine Ratio 46.0 (10.0-20.0); Blood Urea Nitrogen 23 mg/dL (9-23)
[2025-05-28 04:30] LABS: Glucose 178 mg/dL (74-106)
--- NOTE | 2025-05-28 05:16 | DVH ---
CHEST RADIOGRAPH Indication: On trach, hfref Technique: Single frontal view of the chest was obtained. Comparison: XY CHEST XRAY 1 VIEW on DOS: 05/27/25 FINDINGS: Lines and Tubes: Right PICC terminates in the superior cavoatrial junction. Tracheostomy tube is unc hanged. Lungs: Right lower lobe consolidation. Mild pulmonary vascular congestion similar to prior study. Pleura: No effusion. No pneumothorax. Cardiomediastinal contours: Unremarkable Bones: No acute osseous abnormality. IMPRESSION: 1. No significant interval change since prior chest radiograph from 05/27/2025.
--- NOTE | 2025-05-28 09:01 | DVHPNRES ---
Progress Note Date Seen: May 28, 2025 Resident Creating Document: ANSHUL DAY RESIDENT Has the PT tested + for MRSA If YES, has PT been informed?: No Medical Necessity Reason Pt with a Central, PICC or Fol: Yes The following are medically ne: PICC Line, Kenney Catheter Reason for kenney catheter: Strict I&O Subjective Review of Systems HPI Patient is a 79-year-old male who presents with a chief complaint of bilateral leg swelling. He reports a chronic history of leg swelling, previously managed with a medication obtained from [place], the name of which he cannot recall. He admits to not taking this medication for some time. The patient is a poor historian but endorses a past medical history of diabetes mellitus (DM), hypertension (HTN), and an unspecified "heart issue." On triage, his blood pressure was markedly elevated at 180/116 mmHg with a pulse of 140 bpm. Given his history and current presentation, differential diagnoses include fluid retention possibly due to cardiac or renal insufficiency, medication noncompliance, electrolyte imbalance, and other systemic causes. past medical history: diabetes mellitus (DM), hypertension (HTN), and an unspecified "heart issue., COPD surgical history: none social history: denied smoking, alcohol, drug use home medications: not known Patient presented to the hospital with elevated blood pressure, had shortness of breath with ABG showing respiratory acidosis following which the patient was put on BiPAP with mild improvement in respiratory status but eventually as his PCO2 levels remained elevated above 85mmhg and continued to have respiratory distress following which he was intubated and put on mechanical ventilation on 04/23. A right IJV CVC was attempted to be placed but it was misplaced and on CT angio neck it was seen coursing through the right neck entering into the right brachiocephalic artery and coursing into the aortic arch and Moderate soft tissue edema and intermediate density soft tissue in the deep right supraclavicular neck which could reflect blood products likely related to the malpositioned right central venous catheter. IR were consulted to remove the CVC and they did an angiogram and found Central line tip visualized in the aortic arch. Entrance site of the right central line is at the proximal subclavian artery adjacent to the vertebral artery. Removal of right central catheter from the artery shows no extravasation after balloon angioplasty and manual pressure. Completion angiogram shows patency of the right brachiocephalic, carotid, subclavian, and vertebral artery. ECHO showed LVEF 25% with severe LV and RV global hypokinesis following which the patient underwent coronary angiography for ischemic workup but no obstructive coronary artery disease were found. Patient was noted to have new onset atrial fibrillation/atrial flutter with intermittant RVR following which the patient was started on amiodarone which was discontinued shortly after given slow ventricular rate/pauses and patient was started on therapeutic lovenox. Patient was extubated on 05/02. On 05/03, neck bruise was seen to be expanding following which neck CT angio was done which showed Large hematoma in the right neck and upper chest. Active extravasation is present in the right supraclavicular soft-tissue possibly related to a small arterial branch from the right common carotid artery. Area of injury appears to correspond to course of prior arterial catheter which was removed on 04/24/2025. Lovenox was stopped. Patient was intubated again for airway protection. Interventional Radiology were consulted and CL ANGIO BRACHIAL RETRO S I was done and they found right brachiocephalic, subclavian, and carotid arteries are patent and unremarkable. The right vertebral artery, internal mammary, thyrocervical arteries appear patent. No contrast extravasation was visualized. No clear abnormality / contrast extravasation seen at the location of the prior central venous catheter insertion site on the proximal right subclavian artery. Patient was seen to have heart rate going into the 40s likely due to sick sinus syndrome following which fixed dose dopamine started. On 05/07 patient's hematoma was looking bigger following which CT angio was done which showed large heterogeneous hematoma in the right lower neck which measures 9.9 into 5.9 cm without any evidence of acute arterial extravasation. On 05/10 right shoulder hematoma again look to be increase in size but the hemoglobin and platelets were stable and the patient was hemodynamically stable. Patient was eventually weaned off dopamine and vasopressors and after extensive discussion with the family patient underwent a tracheostomy on 05/13 with a size 8.5 coughed nonfenestrated tracheostomy tube was placed. We started due reduced sedation and repeat CT angio of the neck showed right neck/scapular region hypodense collection/lesion measuring 10.5-5.6 cm similar to previous examination, no definitive extravasation was seen. Sputum cultures from the patient's 0 growth of Klebsiella pneumoniae Pseudomonas aeruginosa and bronchial washings from bronchoscopy done on 05/16 showed growth of yeast. Patient has been on meropenem and micafungin. Since 05/19 patient was tried to put on trach collar but initially he tolerated only 26 minutes and was placed on SIMV for 5 minutes started to have tachypnea and continued on assist-control. Review of systems 05/28 Patient seen and examined at the bedside. Patient is alert and is responding to voice commands and does not report of any acute pain signals to be feeling better. Overnight patient had about 750 mL urine output, no fever was recorded overnight and mild to moderate thick creamy secretions aspirated from tracheostomy . Physical therapy working with the patient twice daily and he is able to sit on the chair for about a hour and a half each time Patient tolerated trach collar throughout the night and has been on the trach collar for the last 24 hours. Patient had a bowel movement yesterday Increase the frequency of Mucomyst, chest x-ray similar to yesterday, continue on Lasix to 40 mg daily for a net negative of-500 mL balance, the dose of carvedilol to 6.25 b.i.d. as blood pressure overnight was seen SBP in the 160s Objective vital signs Vital Sign Date Time Temp Pulse Resp B/P (MAP) Pulse Ox O2 Delivery O2 Flow Rate FiO2 05/28/25 06:00 78 28 165/76 (105) 97 05/28/25 06:00 T-piece 8 30 05/28/25 04:00 98.4 98.4 Total Intake and Output 05/27/25 05/27/25 05/28/25 14:59 22:59 06:59 Intake Total 100 ml 820 ml 555 ml Output Total 927 ml 900 ml Balance 100 ml -107 ml -345 ml medications Current Medications Medications Dose Ordered Sig/Jose Alfredo Route Start Time Stop Time Status Last Admin Dose Admin Midazolam HCl 50 ml @ 1 mls/hr Q24H IV 04/23/25 23:15 05/16/25 23:03 4 MLS/HR Pantoprazole Sodium 40 mg DAILY IV 04/28/25 10:00 05/27/25 09:49 40 MG Sodium Chloride 10 ml QSHIFT@10,22 IV 05/01/25 10:00 05/27/25 22:22 10 ML Enteral Nutritional Formula 1,000 ml 60ML/HR GT 05/05/25 16:45 05/27/25 20:45 1,000 ML Atropine Sulfate 1 mg UD PRN IV 05/07/25 02:00 Dextrose 50 ml UD PRN IV 05/07/25 18:00 Insulin Human Regular ACHS SC 05/08/25 17:00 05/28/25 06:29 2 UNITS Diagnostic Test (Pha) 1 strip ACHS 05/08/25 17:00 05/28/25 06:27 1 STRIP Vancomycin HCl 150 ml @ 100 mls/hr Q12H IV 05/14/25 21:00 UNV Alprazolam 0.25 mg Q8HP PRN NG 05/15/25 14:45 05/22/25 21:12 0.25 MG Acetaminophen 650 mg Q6HP PRN PO 05/16/25 19:15 05/22/25 21:12 650 MG Psyllium Hydrophilic Mucilloid 1 pkg DAILY PO 05/20/25 10:00 05/25/25 09:00 1 PKG Empaglifozin 10 mg DAILY PO 05/21/25 10:00 05/27/25 10:00 10 MG Levofloxacin/ Dextrose 100 ml @ 100 mls/hr DAILY IV 05/26/25 10:00 05/27/25 09:48 100 MLS/HR Spironolactone 25 mg DAILY NG 05/26/25 10:00 05/27/25 11:55 25 MG Levalbuterol HCl 0.625 mg Q8HR NEB 05/25/25 22:00 05/28/25 07:01 0.625 MG Acetylcysteine 200 mg Q8HR NEB 05/25/25 22:00 05/28/25 07:01 200 MG Sacubitril/ Valsartan 2 tab BID PO 05/26/25 22:00 05/27/25 22:19 2 TAB Lactulose 15 ml DAILY PO 05/28/25 10:00 Carvedilol 6.25 mg Q12HR PO 05/28/25 10:00 Furosemide 60 mg DAILY PO 05/28/25 10:00 Examination Constitutional: Patient is alert and oriented and follows voice commands, currently on tracheostomy and is not on sedation. Gen - no pallor, no icterus, no cyanosis, no clubbing, no LAD, no edema . Skin - Patients skin is warm and dry. HEENT - normocephalic, atraumatic, moist mucous membranes. Neck -right supraclavicular hematoma with a bluish discoloration decreasing in size, no LAD, no JVD Pulmonary - B/L equal breath sounds with inreased coarse gurgling, minimal expiratory wheezing, no stridor. cardiovascular - regular S1,S2 heard, no added sounds, no murmurs heard. peripheral pulses normal radial 2+, pedal 2+. capillary refill normal <2 secs. GI - soft, nontender abdomen. no hepatospleenomegaly. Bowel sounds normoactive Neurological - Patient is A/O and is responding to voice commands. Bilateral upper extremity strength 4/5, bilateral lower extremity strength 4/5, no facial droop, nonverbal because of tracheostomy, no tremor, no sensory deficiets. laboratory and microbiology Laboratory Tests 05/28/25 03:40 Test 05/28/25 03:40 Range/Units Serum Glucose 178 H 74-106 mg/dL Microbiology Date/Time Source Procedure Growth Status 05/20/25 12:10 Blood Blood Culture - Final NO GROWTH AFTER 5 DAYS OF INCUBATION. Complete 05/20/25 12:05 Pleural Fluid Gram Stain - Final Complete 05/20/25 12:05 Pleural Fluid Aerobic Culture - Final Complete 05/19/25 09:00 Stool Stool Culture - Final Complete 05/19/25 09:00 Stool Shiga Toxin I & II - Final Complete 05/16/25 10:50 Bronchial Washings Gram Stain - Final Complete 05/16/25 10:50 Respiratory Culture - Final Yeast, not Reena albicans Complete 05/12/25 12:44 Voided Urine Urine Culture - Final Complete 05/03/25 20:20 Trachea Gram Stain - Final Complete 05/03/25 20:20 Respiratory Culture - Final Pseudomonas aeruginosa Complete Problem List/Assessment/Plan Problem List/Assessment/Plan Neurology acute metabolic encephalopathy likely due to hypercarbic respiratory failure, resolved - no sedation - patient is alert, interacting using a sign board and following voice commands Cardiovascular 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 Neck hematoma S/p CVC removal from right brachiocephalic/subclavian artery New onset atrial fibrillation/atrial flutter (2-1) with a RVR, resolved Possible sick sinus syndrome Hypertensive heart disease with systolic failure - echocardiogram showed LVEF 25% with severe LV and RV global hypokinesis - goal directed medical therapy with carvedilol, Jardiance, Entresto, spironolactone and Lasix - no arrhythmias noted - most recent CT angio neck showed hematoma of 10.5 X5.6 cm with no active arterial extravasation - chads Vasc 5, but anticoagulation held because of hematoma Respiratory Acute on chronic hypercapnic respiratory failure likely due to COPD exacerbation, resolved S/p mechanical ventilation Pneumonia likely due to Gram +/-bacteria/fungus Pleural effusion likely parapneumonic Mixed metabolic alkalosis with respiratory alkalosis S/p bronchoscopy S/p tracheostomy Status post thoracentesis X 2 - on SIMV at night, trach collar throughout the day on 05/27 - levalbuterol and acetylcysteine q.6hours - on levofloxacin - to be on trach collar throughout the night - secretions increased mildly, monitor for fever, elevated WBC count Hem/onc Anemia, normochromic, normocytic Thrombocytopenia, resolved - Hemoglobin improving, continue monitoring - transfusion of 2 apheresis of platelets previously Endocrinology/gastroenterology DM type 2, hba1c 6.7 - ISS, moderate - Tube feedings - lactulose held - Bowel movement noted Renal Hyperkalemia, resolved BAO due to VMN resolved Hypernatremia mild, resolved - continue monitoring electrolytes and kidney function DVT prophylaxis: No anticoagulation as patient has high-risk of bleeding PUD prophylaxis: Protonix PICC line right upper arm 05/01/25 Tracheostomy 05/13 kenney's catheter changed on 04/19/25 tracheostomy tube 05/13/25 Code status: full code Goals of care discussed with the patient's daughter at bedside Critical care time spent excluding procedures: 83 minutes Plan discussed with Dr. Corrales Plan discussed with: Daughter, Other (RN Laurence) My Orders My Orders Orders - ANSHUL DAY RESIDENT Procedure Category Date Status Time Respiratory Misc. RT 05/27/25 Transmitted Order 16:30 Lactulose Oral PHA 05/28/25 In Process 10:00 Chest Xray 1 View XY 05/28/25 Resulted 04:00 Abg W/ Co-Ox RT 05/28/25 Logged 06:00 Carvedilol Tablet PHA 05/28/25 In Process (Coreg Tablet) 10:00 Furosemide Tablet PHA 05/28/25 In Process (Lasix Tablet) 10:00 Dietary Evaluation Review Comments: Nutrition Recommendation: 1. TF Vital AF 1.2 Luis Enrique @ 60 ml/hr. start @ 20ml/hr, increase 10ml/hr Q4H until goal is reached. TF at goal volume provides 100% energy & protein needs - 1728 kcal, 108 gm protein, 1168 ml free water 2. Water flush 140ml Q6H if allowed 3. TPN if NPO> 7 days Expected Outcomes/Goals: To meet >75% estimated needs Fu 2-3 days Date of Service: May 28, 2025 Billing Provider: PAMELA CORRALES MD Common Visit Codes: 75461-BPRWXAFH CARE 30-74 MIN, 92298-[id number] CARE-EACH +30MIN ANSHUL DAY May 28, 2025 09:01 PAMELA CORRALES MD May 30, 2025 12:29
[2025-05-28] MEDS: LACTULOSE 20Gm/30ML SOLN PO SCH (10:00)
[2025-05-28] MEDS: FUROSEMIDE 40 MG TAB PO SCH (10:46)
[2025-05-28] MEDS: CARVEDILOL 3.125 MG TAB PO SCH (11:26)
[2025-05-28] MEDS: ACETYLCYSTEINE 20%(200MG/ML) SOL 4ML ONE (15:33)
[2025-05-28 17:29] LABS: Base Excess 4.5 mmol/L (-2.0-3.0)
[2025-05-28] MEDS: ACETYLCYSTEINE 20%(200MG/ML) SOL 4ML NEB ONE (17:59)
[2025-05-28] MEDS: LEVALBUTEROL HCL 1.25 MG/3 ML NEB ONE (18:00)
[2025-05-28] MEDS: LEVALBUTEROL HCL 1.25 MG/3 ML NEB NEB ONE (18:00)
[2025-05-29] VITALS (37 sets, daily range): BP systolic 101–164; BP diastolic 43–72; PULSE 64–83; RESP 11–29; TEMP 98.5–99.6; O2SAT 87–100
[2025-05-29] MEDS: LEVALBUTEROL HCL 1.25 MG/3 ML NEB NEB SCH (00:37)
[2025-05-29] MEDS: ACETYLCYSTEINE 20%(200MG/ML) SOL 4ML NEB SCH (00:38)
[2025-05-29 04:05] LABS: Hematocrit 39.1 % (41.0-53.0); Hemoglobin 12.9 g/dL (13.5-17.5); Mean Corpuscular Hemoglobin 30.6 pg (28.0-32.0); Mean Corpuscular Volume 92.7 fL (80.0-100.0); Nucleated Red Blood Cells % 0.0 %
[2025-05-29 04:15] LABS: Anion Gap 9 (5-15); Chloride 105 mmol/L (98-107); Potassium 3.8 mmol/L (3.5-5.1)
[2025-05-29 04:16] LABS: Calcium 9.2 mg/dL (8.7-10.4)
[2025-05-29 04:21] LABS: BUN/Creatinine Ratio 50.0 (10.0-20.0)
[2025-05-29 04:34] LABS: Blood Urea Nitrogen 29 mg/dL (9-23); Carbon Dioxide 31 mmol/L (20-31); Glucose 157 mg/dL (74-106); Sodium 145 mmol/L (136-145)
--- NOTE | 2025-05-29 05:27 | DVH ---
CHEST RADIOGRAPH Indication: on trach, hfref, increase secretions Technique: Single frontal view of the chest was obtained Comparison: XY CHEST XRAY 1 VIEW on DOS: 05/28/25 FINDINGS: Lines and Tubes: Right PICC terminates in the superior cavoatrial junction. Enteric tube terminates in the stomach. Tracheostomy tube is unchanged. Lungs: Right lower lobe airspace disease similar to prior study. Mild pulmonary congestion. Pleura: No effusion. No pneumothorax. Cardiomediastinal contours: Stable. Bones: No acute osseous abnormality. IMPRESSION: 1. Stable position of the support lines and tubes. 2. Stable right basilar airspace disease and pulmonary vascular congestion.
[2025-05-29 10:42] LABS: Base Excess 1.4 mmol/L (-2.0-3.0)
[2025-05-29] MEDS: FUROSEMIDE 40 MG TAB PO SCH (11:30)
--- NOTE | 2025-05-29 14:57 | DVHPNRES ---
Progress Note Date Seen: May 29, 2025 Resident Creating Document: ANSHUL DAY RESIDENT Has the PT tested + for MRSA If YES, has PT been informed?: No Medical Necessity Reason Pt with a Central, PICC or Fol: Yes The following are medically ne: PICC Line, Kenney Catheter Reason for kenney catheter: Strict I&O Subjective Review of Systems HPI Patient is a 79-year-old male who presents with a chief complaint of bilateral leg swelling. He reports a chronic history of leg swelling, previously managed with a medication obtained from [place], the name of which he cannot recall. He admits to not taking this medication for some time. The patient is a poor historian but endorses a past medical history of diabetes mellitus (DM), hypertension (HTN), and an unspecified "heart issue." On triage, his blood pressure was markedly elevated at 180/116 mmHg with a pulse of 140 bpm. Given his history and current presentation, differential diagnoses include fluid retention possibly due to cardiac or renal insufficiency, medication noncompliance, electrolyte imbalance, and other systemic causes. past medical history: diabetes mellitus (DM), hypertension (HTN), and an unspecified "heart issue., COPD surgical history: none social history: denied smoking, alcohol, drug use home medications: not known Patient presented to the hospital with elevated blood pressure, had shortness of breath with ABG showing respiratory acidosis following which the patient was put on BiPAP with mild improvement in respiratory status but eventually as his PCO2 levels remained elevated above 85mmhg and continued to have respiratory distress following which he was intubated and put on mechanical ventilation on 04/23. A right IJV CVC was attempted to be placed but it was misplaced and on CT angio neck it was seen coursing through the right neck entering into the right brachiocephalic artery and coursing into the aortic arch and Moderate soft tissue edema and intermediate density soft tissue in the deep right supraclavicular neck which could reflect blood products likely related to the malpositioned right central venous catheter. IR were consulted to remove the CVC and they did an angiogram and found Central line tip visualized in the aortic arch. Entrance site of the right central line is at the proximal subclavian artery adjacent to the vertebral artery. Removal of right central catheter from the artery shows no extravasation after balloon angioplasty and manual pressure. Completion angiogram shows patency of the right brachiocephalic, carotid, subclavian, and vertebral artery. ECHO showed LVEF 25% with severe LV and RV global hypokinesis following which the patient underwent coronary angiography for ischemic workup but no obstructive coronary artery disease were found. Patient was noted to have new onset atrial fibrillation/atrial flutter with intermittant RVR following which the patient was started on amiodarone which was discontinued shortly after given slow ventricular rate/pauses and patient was started on therapeutic lovenox. Patient was extubated on 05/02. On 05/03, neck bruise was seen to be expanding following which neck CT angio was done which showed Large hematoma in the right neck and upper chest. Active extravasation is present in the right supraclavicular soft-tissue possibly related to a small arterial branch from the right common carotid artery. Area of injury appears to correspond to course of prior arterial catheter which was removed on 04/24/2025. Lovenox was stopped. Patient was intubated again for airway protection. Interventional Radiology were consulted and CL ANGIO BRACHIAL RETRO S I was done and they found right brachiocephalic, subclavian, and carotid arteries are patent and unremarkable. The right vertebral artery, internal mammary, thyrocervical arteries appear patent. No contrast extravasation was visualized. No clear abnormality / contrast extravasation seen at the location of the prior central venous catheter insertion site on the proximal right subclavian artery. Patient was seen to have heart rate going into the 40s likely due to sick sinus syndrome following which fixed dose dopamine started. On 05/07 patient's hematoma was looking bigger following which CT angio was done which showed large heterogeneous hematoma in the right lower neck which measures 9.9 into 5.9 cm without any evidence of acute arterial extravasation. On 05/10 right shoulder hematoma again look to be increase in size but the hemoglobin and platelets were stable and the patient was hemodynamically stable. Patient was eventually weaned off dopamine and vasopressors and after extensive discussion with the family patient underwent a tracheostomy on 05/13 with a size 8.5 coughed nonfenestrated tracheostomy tube was placed. We started due reduced sedation and repeat CT angio of the neck showed right neck/scapular region hypodense collection/lesion measuring 10.5-5.6 cm similar to previous examination, no definitive extravasation was seen. Sputum cultures from the patient's 0 growth of Klebsiella pneumoniae Pseudomonas aeruginosa and bronchial washings from bronchoscopy done on 05/16 showed growth of yeast. Patient has been on meropenem and micafungin. Since 05/19 patient was tried to put on trach collar but initially he tolerated only 26 minutes and was placed on SIMV for 5 minutes started to have tachypnea and continued on assist-control. Review of systems 05/29 Patient seen and examined at the bedside. Patient is alert and is responding to voice commands and does not report of any acute pain signals to be feeling better. Overnight patient had about 600 mL urine output, no fever was recorded overnight an moderate thick creamy secretions aspirated from tracheostomy similar to yesterday. . Physical therapy working with the patient twice daily but today patient was tired and did not want to do therapy Patient tolerated trach collar throughout for the last 48hrs, ABG showed mixed respiratory acidosis and metabolic alkalosis Increase the frequency of Mucomyst, chest x-ray similar to yesterday, continue on Lasix to 40 mg daily for a net negative of -500 mL balance Objective vital signs Vital Sign Date Time Temp Pulse Resp B/P (MAP) Pulse Ox O2 Delivery O2 Flow Rate FiO2 05/29/25 12:31 74 124/58 05/29/25 12:00 25 95 T-piece 10 40 40 05/29/25 12:00 98.5 98.5 Total Intake and Output 05/28/25 05/28/25 05/29/25 15:00 23:00 07:00 Intake Total 100 ml 593 ml 776 ml Output Total 950 ml 600 ml Balance 100 ml -357 ml 176 ml medications Current Medications Medications Dose Ordered Sig/Jose Alfredo Route Start Time Stop Time Status Last Admin Dose Admin Pantoprazole Sodium 40 mg DAILY IV 04/28/25 10:00 05/29/25 11:29 40 MG Sodium Chloride 10 ml QSHIFT@10,22 IV 05/01/25 10:00 05/29/25 11:29 10 ML Enteral Nutritional Formula 1,000 ml 60ML/HR GT 05/05/25 16:45 05/28/25 18:02 1,000 ML Atropine Sulfate 1 mg UD PRN IV 05/07/25 02:00 Dextrose 50 ml UD PRN IV 05/07/25 18:00 Insulin Human Regular ACHS SC 05/08/25 17:00 05/29/25 11:59 3 UNITS Diagnostic Test (Pha) 1 strip ACHS 05/08/25 17:00 05/29/25 11:31 1 STRIP Vancomycin HCl 150 ml @ 100 mls/hr Q12H IV 05/14/25 21:00 UNV Alprazolam 0.25 mg Q8HP PRN NG 05/15/25 14:45 05/22/25 21:12 0.25 MG Acetaminophen 650 mg Q6HP PRN PO 05/16/25 19:15 05/22/25 21:12 650 MG Psyllium Hydrophilic Mucilloid 1 pkg DAILY PO 05/20/25 10:00 05/29/25 11:30 1 PKG Empaglifozin 10 mg DAILY PO 05/21/25 10:00 05/29/25 11:30 10 MG Levofloxacin/ Dextrose 100 ml @ 100 mls/hr DAILY IV 05/26/25 10:00 05/29/25 11:29 100 MLS/HR Spironolactone 25 mg DAILY NG 05/26/25 10:00 05/29/25 11:29 25 MG Sacubitril/ Valsartan 2 tab BID PO 05/26/25 22:00 05/29/25 13:07 2 TAB Lactulose 15 ml DAILY PO 05/28/25 10:00 05/29/25 11:29 15 ML Carvedilol 6.25 mg Q12HR PO 05/28/25 10:00 05/29/25 11:31 6.25 MG Acetylcysteine 200 mg Q6HR NEB 05/29/25 00:00 05/29/25 11:50 200 MG Furosemide 40 mg DAILY PO 05/29/25 10:00 05/29/25 11:30 40 MG Levalbuterol HCl 0.625 mg Q6HR NEB 05/29/25 00:00 05/29/25 11:50 0.625 MG Ipratropium [place] 0.5 mg Q6HR NEB 05/29/25 18:00 Examination Constitutional: Patient is alert and oriented and follows voice commands, currently on tracheostomy and is not on sedation. Gen - no pallor, no icterus, no cyanosis, no clubbing, no LAD, no edema . Skin - Patients skin is warm and dry. HEENT - normocephalic, atraumatic, moist mucous membranes. Neck -right supraclavicular hematoma with a bluish discoloration decreasing in size, no LAD, no JVD Pulmonary - B/L equal breath sounds with increased coarse rales, minimal expiratory wheezing, no stridor. cardiovascular - regular S1,S2 heard, no added sounds, no murmurs heard. peripheral pulses normal radial 2+, pedal 2+. capillary refill normal <2 secs. GI - soft, nontender abdomen. no hepatospleenomegaly. Bowel sounds normoactive Neurological - Patient is A/O and is responding to voice commands. Bilateral upper extremity strength 4/5, bilateral lower extremity strength 4/5, no facial droop, nonverbal because of tracheostomy, no tremor, no sensory deficiets. laboratory and microbiology Laboratory Tests 05/29/25 02:53 Test 05/29/25 02:53 Range/Units Serum Glucose 157 H 74-106 mg/dL Microbiology Date/Time Source Procedure Growth Status 05/20/25 12:10 Blood Blood Culture - Final NO GROWTH AFTER 5 DAYS OF INCUBATION. Complete 05/20/25 12:05 Pleural Fluid Gram Stain - Final Complete 05/20/25 12:05 Pleural Fluid Aerobic Culture - Final Complete 05/19/25 09:00 Stool Stool Culture - Final Complete 05/19/25 09:00 Stool Shiga Toxin I & II - Final Complete 05/16/25 10:50 Bronchial Washings Gram Stain - Final Complete 05/16/25 10:50 Respiratory Culture - Final Yeast, not Reena albicans Complete 05/12/25 12:44 Voided Urine Urine Culture - Final Complete 05/03/25 20:20 Trachea Gram Stain - Final Complete 05/03/25 20:20 Respiratory Culture - Final Pseudomonas aeruginosa Complete Problem List/Assessment/Plan Problem List/Assessment/Plan Neurology acute metabolic encephalopathy likely due to hypercarbic respiratory failure, resolved - no sedation - patient is alert, interacting using a sign board and following voice commands Cardiovascular 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 Neck hematoma S/p CVC removal from right brachiocephalic/subclavian artery New onset atrial fibrillation/atrial flutter (2-1) with a RVR, resolved Possible sick sinus syndrome Hypertensive heart disease with systolic failure - echocardiogram showed LVEF 25% with severe LV and RV global hypokinesis - goal directed medical therapy with carvedilol, Jardiance, Entresto, spironolactone and Lasix - no arrhythmias noted - most recent CT angio neck showed hematoma of 10.5 X5.6 cm with no active arterial extravasation - chads Vasc 5, but anticoagulation held because of hematoma Respiratory Acute on chronic hypercapnic respiratory failure likely due to COPD exacerbation, resolved S/p mechanical ventilation Pneumonia likely due to Gram +/-bacteria/fungus Pleural effusion likely parapneumonic Mixed metabolic alkalosis with respiratory alkalosis S/p bronchoscopy S/p tracheostomy Status post thoracentesis X 2 - on SIMV at night, trach collar throughout the day on 05/27 - levalbuterol and acetylcysteine q.6hours - on levofloxacin - to be on trach collar throughout the night - secretions increased mildly, monitor for fever, elevated WBC count - sputum culture sent Hem/onc Anemia, normochromic, normocytic Thrombocytopenia, resolved - Hemoglobin improving, continue monitoring - transfusion of 2 apheresis of platelets previously Endocrinology/gastroenterology DM type 2, hba1c 6.7 - ISS, moderate - Tube feedings - lactulose held - Bowel movement noted Renal Hyperkalemia, resolved BAO due to VMN resolved Hypernatremia mild, resolved - continue monitoring electrolytes and kidney function DVT prophylaxis: No anticoagulation as patient has high-risk of bleeding PUD prophylaxis: Protonix PICC line right upper arm 05/01/25 Tracheostomy 05/13 kenney's catheter changed on 04/19/25 tracheostomy tube 05/13/25 Code status: full code Goals of care discussed with the patient's daughter at bedside Critical care time spent excluding procedures: 56 minutes Plan discussed with Dr. Tenorio, as the patient had increased secretions we started on ipratropium q.6 and sent sputum culture. Patient will be put on SIMV ventilation for the night. Plan discussed with: Daughter My Orders My Orders Orders - ANSHUL DAY RESIDENT Procedure Category Date Status Time Abg W/ Co-Ox RT 05/29/25 Logged 09:56 Ipratropium Medneb PHA 05/29/25 In Process (Atrovent Medneb) 18:00 Respiratory Culture BETSY 05/29/25 Logged W/ Gs 12:09 Ventilator Orders RT 05/29/25 Transmitted 18:00 Complete Blood Count LAB 05/30/25 Verified 04:00 Basic Metabolic Panel LAB 05/30/25 Verified 04:00 Chest Xray 1 View XY 05/30/25 Logged 04:00 Abg W/ Co-Ox RT 05/30/25 Logged 04:00 Dietary Evaluation Review Comments: Nutrition Recommendation: 1. TF Vital AF 1.2 Luis Enrique @ 60 ml/hr. start @ 20ml/hr, increase 10ml/hr Q4H until goal is reached. TF at goal volume provides 100% energy & protein needs - 1728 kcal, 108 gm protein, 1168 ml free water 2. Water flush 140ml Q6H if allowed 3. TPN if NPO> 7 days Expected Outcomes/Goals: To meet >75% estimated needs Fu 2-3 days ANSHUL DAY RESIDENT May 29, 2025 14:57
[2025-05-29] MEDS: IPRATROPIUM BROM 0.5 MG/2.5ML INH SOL NEB SCH (18:20)
[2025-05-30] VITALS (38 sets, daily range): BP systolic 71–225; BP diastolic 36–107; PULSE 67–120; RESP 10–28; TEMP 98.3–99.2; O2SAT 91–100
[2025-05-30 03:52] LABS: Hematocrit 38.5 % (41.0-53.0); Hemoglobin 12.5 g/dL (13.5-17.5); Mean Corpuscular Hemoglobin 30.2 pg (28.0-32.0); Mean Corpuscular Volume 93.0 fL (80.0-100.0); Nucleated Red Blood Cells % 0.1 %
[2025-05-30 04:04] LABS: Anion Gap 10 (5-15); Calcium 9.2 mg/dL (8.7-10.4); Carbon Dioxide 30 mmol/L (20-31); Chloride 106 mmol/L (98-107); Potassium 3.7 mmol/L (3.5-5.1)
[2025-05-30 04:08] LABS: Sodium 146 mmol/L (136-145)
[2025-05-30 04:10] LABS: BUN/Creatinine Ratio 54.0 (10.0-20.0)
[2025-05-30 04:12] LABS: Blood Urea Nitrogen 34 mg/dL (9-23); Glucose 161 mg/dL (74-106)
--- NOTE | 2025-05-30 05:46 | DVH ---
CHEST RADIOGRAPH Indication: hfref Technique: Single frontal view of the chest was obtained COMPARISON: XY CHEST XRAY 1 VIEW on DOS: 05/29/25, XY CHEST XRAY 1 VIEW on DOS: 05/28/25, XY CHEST XRAY 1 VIEW on DOS: 05/27/25, XY CHEST XRAY 1 VIEW on DOS: 05/26/25, XY CHEST XRAY 1 VIEW on DOS: 05/25/25 FINDINGS: Lines and Tubes: Unchanged. Lungs: Persistent mild right hemidiaphragmatic elevation and small right pleural effusion. No eviden ce of focal consolidation. No pneumothorax. Cardiomediastinal contours: Unremarkable Bones: Unremarkable IMPRESSION: 1. Stable right hemidiaphragmatic elevation and small right pleural effusion. 2. Lines and tubes unchanged.
[2025-05-30 09:21] LABS: Base Excess 4.8 mmol/L (-2.0-3.0)
--- NOTE | 2025-05-30 09:22 | DVH ---
CHEST RADIOGRAPH Indication: Low Tidal volumes on vent, SOB Technique: Single frontal view of the chest was obtained COMPARISON: XY CHEST XRAY 1 VIEW on DOS: 05/30/25, XY CHEST XRAY 1 VIEW on DOS: 05/29/25, XY CHEST XRAY 1 VIEW on DOS: 05/28/25, XY CHEST XRAY 1 VIEW on DOS: 05/27/25, XY CHEST XRAY 1 VIEW on DOS: 05/26/25 FINDINGS: Lines and Tubes: Tracheostomy tube well-positioned. NG tube coursing into the stomach but not identif ied distally. Right-sided PICC line is in the superior vena cava Lungs: Right basilar atelectasis / infiltrate, stable. Pleura: Small right pleural effusion No pneumothorax. Cardiomediastinal contours: Unremarkable Bones: Unremarkable IMPRESSION: 1. No interval change from the prior study
[2025-05-30] MEDS: SODIUM CHLORIDE 0.9% 250 ML IV ONE ×2 (14:34→23:00)
[2025-05-30] MEDS: SODIUM CHLORIDE 0.9% 1,000 ML IV SCH (19:15)
--- NOTE | 2025-05-30 19:40 | DVHPN2 ---
Subjective chart reviwed/discussed with nurse and family Reviewed: Care Plan, H&P Changes from previous H/P or p: No Changes General: Per HPI Eyes: No Pain, No Vision change, No Conjunctivae inflammation, No Eyelid inflammation, No Other, No Redness ENT: No Ear pain, No Ear discharge, No Nose pain, No Nose discharge, No Nose congestion, No Mouth pain, No Mouth swelling, No Throat pain, No Throat swelling, No Other Cardiovascular: No Chest Pain; Palpitations, Paroxysmal Noc. Dyspnea, Edema; No Lt Headedness, No Other Respiratory: Cough, Dry, Shortness of breath, SOB with excertion Gastrointestinal: No Nausea, No Vomiting, No Abdominal Pain, No Diarrhea, No Constipation, No Melena, No Hematochezia, No Other Genitourinary: No Dysuria, No Frequency, No Incontinence, No Hematuria, No Retention, No Other Musculoskeletal: other (Bilateral leg swelling); No neck pain, No shoulder pain, No arm pain, No back pain, No hand pain, No leg pain, No foot pain Skin: No Rash, No Lesions, No Jaundice, No Bruising, No Other Objective Vitals Vital Signs Date Time Temp Pulse Resp B/P (MAP) Pulse Ox O2 Delivery O2 Flow Rate FiO2 05/30/25 18:11 97 Mechanical Ventilator 05/30/25 18:11 73 27 98/52 (67) 30 05/30/25 17:18 8.0 05/30/25 16:00 98.9 98.9 Intake/Output Intake and Output 05/30/25 07:00 Intake Total 1146 ml Output Total 1400 ml Balance -254 ml Intake Oral 220 ml IV Total 100 ml Tube Feeding 826 ml Output Urine Total 1400 ml General Appearance: Alert, Cooperative, No acute distress, Other (Intubate, on vent.) HEENT: Atraumatic, Mucous membr. moist/pink Neck: Supple Lungs: Clear to auscultation Cardiovascular: Regular rate, Normal S1, Normal S2, No murmurs, Gallops, Rubs Abdomen: Normal bowel sounds, Soft Musculoskeletal: Normal sensory function, Normal motor function Extremities: Normal pulses Neuro: Strength at 5/5 X4 ext, Sensation intact, Cranial nerves 3-12 NL Psych/Mental Status: Mental status NL Medications Current Medications Medications Dose Ordered Sig/Jose Alfredo Route Start Time Stop Time Status Last Admin Dose Admin Pantoprazole Sodium 40 mg DAILY IV 04/28/25 10:00 05/30/25 10:48 40 MG Sodium Chloride 10 ml QSHIFT@10,22 IV 05/01/25 10:00 05/30/25 10:48 10 ML Enteral Nutritional Formula 1,000 ml 60ML/HR GT 05/05/25 16:45 05/29/25 14:56 1,000 ML Atropine Sulfate 1 mg UD PRN IV 05/07/25 02:00 Dextrose 50 ml UD PRN IV 05/07/25 18:00 Insulin Human Regular ACHS SC 05/08/25 17:00 05/30/25 18:40 2 UNITS Diagnostic Test (Pha) 1 strip ACHS 05/08/25 17:00 05/30/25 18:40 1 STRIP Vancomycin HCl 150 ml @ 100 mls/hr Q12H IV 05/14/25 21:00 UNV Alprazolam 0.25 mg Q8HP PRN NG 05/15/25 14:45 05/22/25 21:12 0.25 MG Acetaminophen 650 mg Q6HP PRN PO 05/16/25 19:15 05/22/25 21:12 650 MG Psyllium Hydrophilic Mucilloid 1 pkg DAILY PO 05/20/25 10:00 05/30/25 10:48 1 PKG Empaglifozin 10 mg DAILY PO 05/21/25 10:00 05/29/25 11:30 10 MG Levofloxacin/ Dextrose 100 ml @ 100 mls/hr DAILY IV 05/26/25 10:00 05/30/25 10:47 100 MLS/HR Spironolactone 25 mg DAILY NG 05/26/25 10:00 05/29/25 11:29 25 MG Sacubitril/ Valsartan 2 tab BID PO 05/26/25 22:00 05/29/25 13:07 2 TAB Lactulose 15 ml DAILY PO 05/28/25 10:00 05/30/25 10:48 15 ML Carvedilol 6.25 mg Q12HR PO 05/28/25 10:00 05/29/25 11:31 6.25 MG Acetylcysteine 200 mg Q6HR NEB 05/29/25 00:00 05/30/25 18:11 200 MG Furosemide 40 mg DAILY PO 05/29/25 10:00 05/29/25 11:30 40 MG Levalbuterol HCl 0.625 mg Q6HR NEB 05/29/25 00:00 05/30/25 18:11 0.625 MG Ipratropium [place] 0.5 mg Q6HR NEB 05/29/25 18:00 05/30/25 18:11 0.5 MG Sodium Chloride 1,000 ml @ 60 mls/hr [id number] IV 05/30/25 19:15 Laboratory Results Laboratory Tests 05/30/25 03:15 Chemistry Test 05/30/25 03:15 Calcium Level 9.2 mg/dL (8.7-10.4) Urinalysis Test 05/19/25 15:00 Urine Color Colorless (Yellow) Urine Clarity Turbid (Clear) H Urine pH 6.0 (5.0-9.0) Urine Specific [place] 1.016 (1.001-1.035) Urine Protein 1+ (Negative) H Urine Ketones Negative (Negative) Urine Blood 3+ /uL (Negative) H Urine Nitrite Negative (Negative) Urine Bilirubin Negative (Negative) Urine Urobilinogen 2 mg/dL (Negative) H Urine Leukocyte Esterase 2+ /uL (Negative) Urine RBC 274 /hpf (0 - 3) Urine Microscopic WBC 16 /HPF (0-3) H Urine Squamous Epithelial Cells None seen /hpf (<5) Urine Bacteria None seen /hpf (None Seen) Urine Mucus Few (None Seen) Urine Glucose Normal mg/dL (Normal) Blood Gas Results Test 05/30/25 09:01 Arterial Blood pH 7.414 (7.350-7.450) FiO2 % 30.0 Microbiology Microbiology Date/Time Source Procedure Growth Status 05/20/25 12:10 Blood Blood Culture - Final NO GROWTH AFTER 5 DAYS OF INCUBATION. Complete 05/20/25 12:05 Pleural Fluid Gram Stain - Final Complete 05/20/25 12:05 Pleural Fluid Aerobic Culture - Final Complete 05/19/25 09:00 Stool Stool Culture - Final Complete 05/19/25 09:00 Stool Shiga Toxin I & II - Final Complete 05/16/25 10:50 Bronchial Washings Gram Stain - Final Complete 05/16/25 10:50 Respiratory Culture - Final Yeast, not Reena albicans Complete 05/12/25 12:44 Voided Urine Urine Culture - Final Complete 05/03/25 20:20 Trachea Gram Stain - Final Complete 05/03/25 20:20 Respiratory Culture - Final Pseudomonas aeruginosa Complete Assessment/Plan Assessment/Plan acute respiratory failure secondary to klebsillla pneumonia-vent dependent cardiomyopathy- normal coronaries acute systolic chf better paroxysmal atrial fibrillation stable oliguria/-hypotension- ivf/monitor-check bladder scan gfr stable at 90 neck hematoma- resolving/hold off on full dose anticoagulation tube feeds gi prophylaxis scd for dvt prophylaxis Plan discussed with: Patient, Daughter My Orders Orders - TYRA SOLIS MD Procedure Category Date Status Time Free Water AV 05/30/25 In Process 19:01 Sodium Chloride 0.9% PHA 05/30/25 In Process 19:15 Date of Service: May 30, 2025 Billing Provider: TYRA SOLIS MD Common Visit Codes: [id number] CARE 30-74 MIN TYRA SOLIS MD May 30, 2025 19:40
[2025-05-30] MEDS: ENOXAPARIN SOD 30 MG/0.3 ML SYRINGE SC ONE (20:12)
[2025-05-30] MEDS: FREE WATER NG SCH (21:58)
--- NOTE | 2025-05-30 23:14 | DVHPN2 ---
Progress Note - Dictate Date Seen: May 30, 2025 Has the PT tested + for MRSA If YES, has PT been informed?: No Medical Necessity Reason Pt with a Central, PICC or Fol: Yes The following are medically ne: PICC Line, Kenney Catheter Reason for kenney catheter: Strict I&O Subjective Patient seen and examined at bedside. S/p trach, on mechanical ventilator. Overnight events reviewed. vital signs Vital Sign Date Time Temp Pulse Resp B/P (MAP) Pulse Ox O2 Delivery O2 Flow Rate FiO2 05/30/25 22:01 76 22 110/50 (70) 94 30 05/30/25 20:00 Mechanical Ventilator+ 05/30/25 20:00 99.2 99.2 05/30/25 17:18 8.0 Total Intake and Output 05/29/25 05/29/25 05/30/25 15:00 23:00 07:00 Intake Total 100 ml 556 ml 490 ml Output Total 850 ml 550 ml Balance 100 ml -294 ml -60 ml medications Current Medications Medications Dose Ordered Sig/Jose Alfredo Route Start Time Stop Time Status Last Admin Dose Admin Pantoprazole Sodium 40 mg DAILY IV 04/28/25 10:00 05/30/25 10:48 40 MG Sodium Chloride 10 ml QSHIFT@10,22 IV 05/01/25 10:00 05/30/25 21:58 10 ML Enteral Nutritional Formula 1,000 ml 60ML/HR GT 05/05/25 16:45 05/30/25 21:58 1,000 ML Atropine Sulfate 1 mg UD PRN IV 05/07/25 02:00 Dextrose 50 ml UD PRN IV 05/07/25 18:00 Insulin Human Regular ACHS SC 05/08/25 17:00 05/30/25 18:40 2 UNITS Diagnostic Test (Pha) 1 strip ACHS 05/08/25 17:00 05/30/25 22:19 1 STRIP Vancomycin HCl 150 ml @ 100 mls/hr Q12H IV 05/14/25 21:00 UNV Alprazolam 0.25 mg Q8HP PRN NG 05/15/25 14:45 05/22/25 21:12 0.25 MG Acetaminophen 650 mg Q6HP PRN PO 05/16/25 19:15 05/22/25 21:12 650 MG Psyllium Hydrophilic Mucilloid 1 pkg DAILY PO 05/20/25 10:00 05/30/25 10:48 1 PKG Empaglifozin 10 mg DAILY PO 05/21/25 10:00 05/29/25 11:30 10 MG Levofloxacin/ Dextrose 100 ml @ 100 mls/hr DAILY IV 05/26/25 10:00 05/30/25 10:47 100 MLS/HR Spironolactone 25 mg DAILY NG 05/26/25 10:00 05/29/25 11:29 25 MG Sacubitril/ Valsartan 2 tab BID PO 05/26/25 22:00 05/29/25 13:07 2 TAB Lactulose 15 ml DAILY PO 05/28/25 10:00 05/30/25 10:48 15 ML Carvedilol 6.25 mg Q12HR PO 05/28/25 10:00 05/29/25 11:31 6.25 MG Acetylcysteine 200 mg Q6HR NEB 05/29/25 00:00 05/30/25 18:11 200 MG Furosemide 40 mg DAILY PO 05/29/25 10:00 05/29/25 11:30 40 MG Levalbuterol HCl 0.625 mg Q6HR NEB 05/29/25 00:00 05/30/25 18:11 0.625 MG Ipratropium [place] 0.5 mg Q6HR NEB 05/29/25 18:00 05/30/25 18:11 0.5 MG Sodium Chloride 1,000 ml @ 60 mls/hr [id number] IV 05/30/25 19:15 05/30/25 19:15 60 MLS/HR Enoxaparin Sodium 30 mg DAILY SC 05/31/25 10:00 Purified Water 200 ml Q8HR 05/30/25 22:00 05/30/25 21:58 200 ML objective Gen.: Patient lying in bed in medical ICU. S/p trach, on mechanical ventilator. Head: Normocephalic, atraumatic. Eyes: PERRLA. Ears: Normal external anatomy. Throat: Endotracheal tube and orogastric tube in place. Neck: Trach in place. Chest: Transmitted breath sounds bilaterally. Decreased air entry bilaterally. No wheezing. Bibasilar crackles. Cardiovascular: Positive S1, positive S2. Regular rate and rhythm. Abdomen: Positive bowel sounds in all 4 quadrants. Soft, nontender, nondistended. : Kenney in place. Normal external genitalia. Rectal: Deferred. Skin: Warm, dry. Intact. Extremities: 2+ radial pulses bilaterally. No lower extremity edema. Neuro: Off sedation laboratory and microbiology Laboratory Tests 05/30/25 03:15 Test 05/30/25 03:15 Range/Units Serum Glucose 161 H 74-106 mg/dL Assessment/Plan Impression: Acute hypoxic respiratory failure 2/2 COPD exacerbation On mechanical ventilator S/p tracheostomy Acute COPD exacerbation Acute CHF exacerbation Acute metabolic encephalopathy Septic shock Lactic acidosis Pleural effusions Atelectasis Large neck hematoma Obesity Events: Remains on vent support S/p trach Vent settings: SIMV mode with RR 10, VT 450, PS 8, PEEP 5, FiO2 30% Trach care per RT. Supportive care. Continue pulmonary toileting. ABG reviewed, compensated. CXR reviewed, demonstrates Right basilar atelectasis / infiltrate, stable. Small right pleural effusion. Devices in place. Patient noted to be hypotensive. Started 250 mL NS - pt responded Start Levophed if BP does not improve with IV fluid bolus. Continue antibiotics Bronchodilators/Mucomyst Head of bed elevation Aspiration precautions Accu-Cheks, ISS Lasix held due to decreased blood pressure Mechanical DVT prophylaxis Monitor hemoglobin closely Monitor platelet count Labs and imaging reviewed. Rest of plan as noted below. Plan: On mechanical ventilator. S/p tracheostomy Titrate FIO2 to keep O2 saturation above 90%. Trach care Pulmonary toileting Pressors as necessary for hemodynamic support. Titrate to keep MAP greater than 65 mmHg. Continue antibiotics. Accu-Cheks, ISS Monitor hemoglobin Protonix for GI ppx Monitor renal function Monitor electrolytes. Supplement as necessary. Monitor ins and outs. Maintain euvolemia. Obesity complicates all care. GI prophylaxis - Protonix Mechanical DVT prophylaxis Prognosis: Poor given patient's multiple co-morbidities. Rest of plan per hospitalist and other consultants. Thank you, Dr. Serra, for allowing me to participate in this patient's care. Further recommendations will depend on the patient's clinical course. Please do not hesitate to contact me if you have any questions or concerns. This medical document was created using an electronic medical record system with [employer] dictation system. Although these documentations are being carefully reviewed, there may still be some phonetic and typographical changes. The errors are purely typographical, due to imperfection on the software program, and do not reflect any compromise in the patient's medical care. Dietary Evaluation Review Comments: Nutrition Recommendation: 1. TF Vital AF 1.2 Luis Enrique @ 60 ml/hr. start @ 20ml/hr, increase 10ml/hr Q4H until goal is reached. TF at goal volume provides 100% energy & protein needs - 1728 kcal, 108 gm protein, 1168 ml free water 2. Water flush 140ml Q6H if allowed 3. TPN if NPO> 7 days Expected Outcomes/Goals: To meet >75% estimated needs Fu 2-3 days Plan discussed with: Patient, Other (DUDLEY Li) VITO REDMOND MD May 30, 2025 23:14
[2025-05-31] VITALS (50 sets, daily range): BP systolic 97–180; BP diastolic 53–97; PULSE 62–102; RESP 11–28; TEMP 98.3–99.5; O2SAT 93–100
[2025-05-31 04:21] LABS: Anion Gap 10 (5-15); Calcium 8.8 mg/dL (8.7-10.4); Carbon Dioxide 28 mmol/L (20-31)
[2025-05-31 04:26] LABS: BUN/Creatinine Ratio 63.4 (10.0-20.0)
[2025-05-31 04:53] LABS: Blood Urea Nitrogen 45 mg/dL (9-23); Chloride 108 mmol/L (98-107); Glucose 211 mg/dL (74-106); Potassium 3.5 mmol/L (3.5-5.1); Sodium 146 mmol/L (136-145)
--- NOTE | 2025-05-31 05:21 | DVH ---
CHEST RADIOGRAPH Indication: TRACH Technique: 1 view Comparison: XY CHEST PORTABLE on DOS: 05/30/25, XY CHEST XRAY 1 VIEW on DOS: 05/30/25, XY CHEST XRAY 1 EW on DOS: 05/29/25, XY CHEST XRAY 1 VIEW on DOS: 05/28/25, XY CHEST XRAY 1 VIEW on DOS: 05/27/25 FINDINGS: Lines and Tubes: Unchanged tracheostomy tube, enteric tube, and right upper extremity PICC. Lungs: Persistent hazy airspace disease in the right lung base. No evidence of new consolidation. Pleura: Small right pleural effusion. Cardiomediastinal contours: Unchanged. Bones: Unchanged. IMPRESSION: 1. No significant change from the previous study. Right basilar airspace disease and small pleural e ffusion. Stable support devices.
[2025-05-31 08:37] LABS: Base Excess 3.4 mmol/L (-2.0-3.0)
[2025-05-31] MEDS: ENOXAPARIN SOD 30 MG/0.3 ML SYRINGE SC SCH (09:39)
[2025-05-31 10:46] LABS: Hematocrit 38.2 % (41.0-53.0); Hemoglobin 12.6 g/dL (13.5-17.5); Mean Corpuscular Hemoglobin 30.3 pg (28.0-32.0); Mean Corpuscular Volume 91.9 fL (80.0-100.0); Nucleated Red Blood Cells % 0.0 %
--- NOTE | 2025-05-31 13:00 | DVHPN2 ---
Subjective chart reviwed/discussed with nurse and family/suprapubic/pelvic mass- ? distended bladder- check bladder scan and adjust kenney Reviewed: Care Plan, H&P Changes from previous H/P or p: No Changes General: Per HPI Eyes: No Pain, No Vision change, No Conjunctivae inflammation, No Eyelid inflammation, No Other, No Redness ENT: No Ear pain, No Ear discharge, No Nose pain, No Nose discharge, No Nose congestion, No Mouth pain, No Mouth swelling, No Throat pain, No Throat swelling, No Other Cardiovascular: No Chest Pain; Palpitations, Paroxysmal Noc. Dyspnea, Edema; No Lt Headedness, No Other Respiratory: Cough, Dry, Shortness of breath, SOB with excertion Gastrointestinal: No Nausea, No Vomiting, No Abdominal Pain, No Diarrhea, No Constipation, No Melena, No Hematochezia, No Other Genitourinary: No Dysuria, No Frequency, No Incontinence, No Hematuria, No Retention, No Other Musculoskeletal: other (Bilateral leg swelling); No neck pain, No shoulder pain, No arm pain, No back pain, No hand pain, No leg pain, No foot pain Skin: No Rash, No Lesions, No Jaundice, No Bruising, No Other Objective Vitals Vital Signs Date Time Temp Pulse Resp B/P (MAP) Pulse Ox O2 Delivery O2 Flow Rate FiO2 05/31/25 12:04 83 27 96 05/31/25 11:56 T-piece 10.0 05/31/25 11:56 35 35 05/31/25 10:39 142/79 05/31/25 08:00 98.5 98.5 Intake/Output Intake and Output 05/31/25 07:00 Intake Total 2486 ml Output Total 200 ml Balance 2286 ml Intake Oral 720 ml IV Total 1020 ml Tube Feeding 746 ml Output Urine Total 200 ml # Bowel Movements 2 General Appearance: Alert, Cooperative, No acute distress, Other (Intubate, on vent.) HEENT: Atraumatic, Mucous membr. moist/pink Neck: Supple Lungs: Clear to auscultation Cardiovascular: Regular rate, Normal S1, Normal S2, No murmurs, Gallops, Rubs Abdomen: Normal bowel sounds, Soft, Other (suprapubic mass-? distended bladder) Musculoskeletal: Normal sensory function, Normal motor function Extremities: Normal pulses Neuro: Strength at 5/5 X4 ext, Sensation intact, Cranial nerves 3-12 NL Psych/Mental Status: Mental status NL Medications Current Medications Medications Dose Ordered Sig/Jose Alfredo Route Start Time Stop Time Status Last Admin Dose Admin Pantoprazole Sodium 40 mg DAILY IV 04/28/25 10:00 05/31/25 09:37 40 MG Sodium Chloride 10 ml QSHIFT@10,22 IV 05/01/25 10:00 05/31/25 09:39 10 ML Enteral Nutritional Formula 1,000 ml 60ML/HR GT 05/05/25 16:45 05/30/25 21:58 1,000 ML Atropine Sulfate 1 mg UD PRN IV 05/07/25 02:00 Dextrose 50 ml UD PRN IV 05/07/25 18:00 Insulin Human Regular ACHS SC 05/08/25 17:00 05/31/25 11:30 3 UNITS Diagnostic Test (Pha) 1 strip ACHS 05/08/25 17:00 05/31/25 11:30 1 STRIP Vancomycin HCl 150 ml @ 100 mls/hr Q12H IV 05/14/25 21:00 UNV Alprazolam 0.25 mg Q8HP PRN NG 05/15/25 14:45 05/22/25 21:12 0.25 MG Acetaminophen 650 mg Q6HP PRN PO 05/16/25 19:15 05/31/25 09:37 650 MG Psyllium Hydrophilic Mucilloid 1 pkg DAILY PO 05/20/25 10:00 05/30/25 10:48 1 PKG Empaglifozin 10 mg DAILY PO 05/21/25 10:00 05/31/25 09:37 10 MG Levofloxacin/ Dextrose 100 ml @ 100 mls/hr DAILY IV 05/26/25 10:00 05/31/25 09:37 100 MLS/HR Spironolactone 25 mg DAILY NG 05/26/25 10:00 05/31/25 10:32 25 MG Sacubitril/ Valsartan 2 tab BID PO 05/26/25 22:00 05/31/25 09:38 2 TAB Lactulose 15 ml DAILY PO 05/28/25 10:00 05/30/25 10:48 15 ML Carvedilol 6.25 mg Q12HR PO 05/28/25 10:00 05/31/25 09:39 6.25 MG Acetylcysteine 200 mg Q6HR NEB 05/29/25 00:00 05/31/25 11:56 200 MG Furosemide 40 mg DAILY PO 05/29/25 10:00 05/31/25 09:38 40 MG Levalbuterol HCl 0.625 mg Q6HR NEB 05/29/25 00:00 05/31/25 11:56 0.625 MG Ipratropium [place] 0.5 mg Q6HR NEB 05/29/25 18:00 05/31/25 11:56 0.5 MG Sodium Chloride 1,000 ml @ 60 mls/hr [id number] IV 05/30/25 19:15 05/30/25 19:15 60 MLS/HR Enoxaparin Sodium 30 mg DAILY SC 05/31/25 10:00 05/31/25 09:39 30 MG Purified Water 200 ml Q8HR NG 05/30/25 22:00 05/31/25 06:04 200 ML Laboratory Results Laboratory Tests 05/31/25 03:10 05/31/25 10:18 Chemistry Test 05/31/25 03:10 Calcium Level 8.8 mg/dL (8.7-10.4) Urinalysis Test 05/19/25 15:00 Urine Color Colorless (Yellow) Urine Clarity Turbid (Clear) H Urine pH 6.0 (5.0-9.0) Urine Specific [place] 1.016 (1.001-1.035) Urine Protein 1+ (Negative) H Urine Ketones Negative (Negative) Urine Blood 3+ /uL (Negative) H Urine Nitrite Negative (Negative) Urine Bilirubin Negative (Negative) Urine Urobilinogen 2 mg/dL (Negative) H Urine Leukocyte Esterase 2+ /uL (Negative) Urine RBC 274 /hpf (0 - 3) Urine Microscopic WBC 16 /HPF (0-3) H Urine Squamous Epithelial Cells None seen /hpf (<5) Urine Bacteria None seen /hpf (None Seen) Urine Mucus Few (None Seen) Urine Glucose Normal mg/dL (Normal) Blood Gas Results Test 05/31/25 08:29 Arterial Blood pH 7.423 (7.350-7.450) FiO2 % 35.0 Microbiology Microbiology Date/Time Source Procedure Growth Status 05/20/25 12:10 Blood Blood Culture - Final NO GROWTH AFTER 5 DAYS OF INCUBATION. Complete 05/20/25 12:05 Pleural Fluid Gram Stain - Final Complete 05/20/25 12:05 Pleural Fluid Aerobic Culture - Final Complete 05/19/25 09:00 Stool Stool Culture - Final Complete 05/19/25 09:00 Stool Shiga Toxin I & II - Final Complete 05/16/25 10:50 Bronchial Washings Gram Stain - Final Complete 05/16/25 10:50 Respiratory Culture - Final Yeast, not Reena albicans Complete 05/12/25 12:44 Voided Urine Urine Culture - Final Complete 05/03/25 20:20 Trachea Gram Stain - Final Complete 05/03/25 20:20 Respiratory Culture - Final Pseudomonas aeruginosa Complete Labs and/or images reviewed: Labs reviewed by me, Image(s) reviewed by me Assessment/Plan Assessment/Plan acute respiratory failure secondary to klebsiella pneumonia-vent dependent ? distended bladder- check bladder scan and adjust/replace kenney cardiomyopathy- normal coronaries/ acute systolic chf better paroxysmal atrial fibrillation stable oliguria/-hypotension-bp stable since last night ivf/monitor-checked bladder scan last night showed urine output 200cc- recheck/ gfr stable at 90 neck hematoma- resolving/hold off on full dose anticoagulation tube feeds gi prophylaxis dm- well controlled anemia- mild/stable renal fn- normal gfr scd for dvt prophylaxis Plan discussed with: Patient, Other My Orders Orders - TYRA SOLIS MD Procedure Category Date Status Time Sodium Chloride 0.9% PHA 05/30/25 In Process 19:15 Enoxaparin Sodium PHA 05/31/25 In Process (Lovenox) 10:00 Free Water PHA 05/30/25 In Process 22:00 Date of Service: May 31, 2025 Billing Provider: TYRA SOLIS MD Common Visit Codes: 73427-[id number] CARE 30-74 MIN TYRA SOLIS MD May 31, 2025 13:00
--- NOTE | 2025-05-31 23:46 | DVHPN2 ---
Progress Note - Dictate Date Seen: May 31, 2025 Has the PT tested + for MRSA If YES, has PT been informed?: No Medical Necessity Reason Pt with a Central, PICC or Fol: Yes The following are medically ne: PICC Line, Kenney Catheter Reason for kenney catheter: Strict I&O Subjective Patient seen and examined at bedside. Currently on supplemental oxygen via trach Overnight events reviewed. vital signs Vital Sign Date Time Temp Pulse Resp B/P (MAP) Pulse Ox O2 Delivery O2 Flow Rate FiO2 05/31/25 22:30 78 25 140/76 (97) 96 05/31/25 22:00 Trach Collar 10 35 35 05/31/25 20:00 98.3 98.3 Total Intake and Output 05/30/25 05/30/25 05/31/25 15:00 23:00 07:00 Intake Total 100 ml 1220 ml 1166 ml Output Total 175 ml 25 ml Balance 100 ml 1045 ml 1141 ml medications Current Medications Medications Dose Ordered Sig/Jose Alfredo Route Start Time Stop Time Status Last Admin Dose Admin Pantoprazole Sodium 40 mg DAILY IV 04/28/25 10:00 05/31/25 09:37 40 MG Sodium Chloride 10 ml QSHIFT@10,22 IV 05/01/25 10:00 05/31/25 22:24 10 ML Enteral Nutritional Formula 1,000 ml 60ML/HR GT 05/05/25 16:45 05/30/25 21:58 1,000 ML Atropine Sulfate 1 mg UD PRN IV 05/07/25 02:00 Dextrose 50 ml UD PRN IV 05/07/25 18:00 Insulin Human Regular ACHS SC 05/08/25 17:00 05/31/25 11:30 3 UNITS Diagnostic Test (Pha) 1 strip ACHS 05/08/25 17:00 05/31/25 22:28 1 STRIP Vancomycin HCl 150 ml @ 100 mls/hr Q12H IV 05/14/25 21:00 UNV Alprazolam 0.25 mg Q8HP PRN NG 05/15/25 14:45 05/22/25 21:12 0.25 MG Acetaminophen 650 mg Q6HP PRN PO 05/16/25 19:15 05/31/25 09:37 650 MG Psyllium Hydrophilic Mucilloid 1 pkg DAILY PO 05/20/25 10:00 05/30/25 10:48 1 PKG Empaglifozin 10 mg DAILY PO 05/21/25 10:00 05/31/25 09:37 10 MG Levofloxacin/ Dextrose 100 ml @ 100 mls/hr DAILY IV 05/26/25 10:00 05/31/25 09:37 100 MLS/HR Spironolactone 25 mg DAILY NG 05/26/25 10:00 05/31/25 10:32 25 MG Sacubitril/ Valsartan 2 tab BID PO 05/26/25 22:00 05/31/25 09:38 2 TAB Lactulose 15 ml DAILY PO 05/28/25 10:00 05/30/25 10:48 15 ML Carvedilol 6.25 mg Q12HR PO 05/28/25 10:00 05/31/25 22:25 6.25 MG Acetylcysteine 200 mg Q6HR NEB 05/29/25 00:00 05/31/25 18:19 200 MG Furosemide 40 mg DAILY PO 05/29/25 10:00 05/31/25 09:38 40 MG Levalbuterol HCl 0.625 mg Q6HR NEB 05/29/25 00:00 05/31/25 18:18 0.625 MG Ipratropium [place] 0.5 mg Q6HR NEB 05/29/25 18:00 05/31/25 18:19 0.5 MG Sodium Chloride 1,000 ml @ 60 mls/hr [id number] IV 05/30/25 19:15 05/31/25 11:55 60 MLS/HR Enoxaparin Sodium 30 mg DAILY SC 05/31/25 10:00 05/31/25 09:39 30 MG Purified Water 200 ml Q8HR 05/30/25 22:00 05/31/25 22:25 200 ML objective Gen.: Patient lying in bed in no apparent distress. S/p trach, on supplemental oxygen. Head: Normocephalic, atraumatic. Eyes: EOMI/PERRLA. Ears: Normal hearing. Normal anatomy. Neck/trachea: Trach in place. Nose: Normal external anatomy. Mouth: Moist mucous membranes. Chest: Decreased air entry bilaterally. No wheezing or rhonchi. Cardiovascular: Positive S1, positive S2. Regular rate and rhythm. Abdomen: Positive bowel sounds in all 4 quadrants. Soft, non-tender, non- distended. : Deferred. Rectal: Deferred. Skin: Warm, dry. Intact. Extremities: 2+ radial pulses bilaterally. No lower extremity edema. Neuro: Awake, alert, oriented x3. No gross motor or sensory deficits. Cranial nerves II through XII intact. Gait not assessed. laboratory and microbiology Laboratory Tests 05/31/25 10:18 05/31/25 03:10 Test 05/31/25 03:10 Range/Units Serum Glucose 211 H 74-106 mg/dL Assessment/Plan Impression: Acute hypoxic respiratory failure 2/2 COPD exacerbation Mechanical ventilator PRN S/p tracheostomy Acute COPD exacerbation Acute CHF exacerbation Acute metabolic encephalopathy Septic shock Lactic acidosis Pleural effusions Atelectasis Large neck hematoma Obesity Events: S/p trach Currently off vent On trach collar 9 LPM, 35% FiO2 Trach care per RT. Supportive care. Continue pulmonary toileting. ABG reviewed, compensated. Monitor blood pressure Continue antibiotics Bronchodilators/Mucomyst Head of bed elevation Aspiration precautions Accu-Cheks, ISS Diures with Lasix Monitor renal function Mechanical DVT prophylaxis Monitor hemoglobin closely Monitor platelet count Labs and imaging reviewed. Rest of plan as noted below. Plan: S/p trach Currently off vent On trach collar 9 LPM, 35% FiO2 Titrate to keep O2 saturation above 90%. Place on full vent support if any distress. Trach care Pulmonary toileting Pressors as necessary for hemodynamic support. Titrate to keep MAP greater than 65 mmHg. Continue antibiotics. Accu-Cheks, ISS Monitor hemoglobin Protonix for GI ppx Monitor renal function Monitor electrolytes. Supplement as necessary. Monitor ins and outs. Maintain euvolemia. Obesity complicates all care. GI prophylaxis - Protonix Mechanical DVT prophylaxis Prognosis: Poor given patient's multiple co-morbidities. Rest of plan per hospitalist and other consultants. Thank you, Dr. Serra, for allowing me to participate in this patient's care. Further recommendations will depend on the patient's clinical course. Please do not hesitate to contact me if you have any questions or concerns. This medical document was created using an electronic medical record system with [employer] system. Although these documentations are being carefully reviewed, there may still be some phonetic and typographical changes. The errors are purely typographical, due to imperfection on the software program, and do not reflect any compromise in the patient's medical care. Dietary Evaluation Review Comments: Nutrition Recommendation: 1. TF Vital AF 1.2 Luis Enrique @ 60 ml/hr. start @ 20ml/hr, increase 10ml/hr Q4H until goal is reached. TF at goal volume provides 100% energy & protein needs - 1728 kcal, 108 gm protein, 1168 ml free water 2. Water flush 140ml Q6H if allowed 3. TPN if NPO> 7 days Expected Outcomes/Goals: To meet >75% estimated needs Fu 2-3 days Plan discussed with: Other (DUDLEY Ross) VITO REDMOND MD May 31, 2025 23:46
[2025-06-01] VITALS (68 sets, daily range): BP systolic 69–155; BP diastolic 34–70; PULSE 63–90; RESP 16–28; TEMP 98.1–98.4; O2SAT 6–99
[2025-06-01 04:03] LABS: Hematocrit 38.0 % (41.0-53.0); Hemoglobin 12.1 g/dL (13.5-17.5); Mean Corpuscular Hemoglobin 29.9 pg (28.0-32.0); Mean Corpuscular Volume 93.7 fL (80.0-100.0); Nucleated Red Blood Cells % 0.0 %
[2025-06-01 04:13] LABS: Potassium 3.8 mmol/L (3.5-5.1)
[2025-06-01 04:14] LABS: Anion Gap 9 (5-15); Carbon Dioxide 27 mmol/L (20-31)
[2025-06-01 04:19] LABS: BUN/Creatinine Ratio 51.5 (10.0-20.0)
[2025-06-01 04:22] LABS: Blood Urea Nitrogen 34 mg/dL (9-23); Calcium 8.5 mg/dL (8.7-10.4); Chloride 110 mmol/L (98-107); Glucose 150 mg/dL (74-106); Sodium 146 mmol/L (136-145)
[2025-06-01 07:43] LABS: Base Excess 1.6 mmol/L (-2.0-3.0)
--- NOTE | 2025-06-01 20:13 | DVHPNRES ---
Progress Note Date Seen: Jun 01, 2025 Resident Creating Document: GORDON DAYJUNJUAN RESIDENT Has the PT tested + for MRSA If YES, has PT been informed?: No Medical Necessity Reason Pt with a Central, PICC or Fol: Yes The following are medically ne: PICC Line, Kenney Catheter Reason for kenney catheter: Strict I&O Subjective Review of Systems 06/01 Patient seen and examined at the bedside. Patient is alert and is responding to voice commands and does not report of any acute pain signals to be feeling better. On Sunday patient was put on SIMV for the night as there was mild respiratory distress during the day, he continued to be on SIMV throughout Sunday and was put on a T-piece on Sunday morning. Over the weekend patient remained afebrile, for the blood pressure he remained normotensive with a few episodes of hypertension to 150-160 and few episodes of low BP. Physical therapy has been working with the patient every day and he is out on the chair about 1 hour a day. Patient has been on the baby's for over 24 hours, ABG showed respiratory acidosis with metabolic alkalosis, chest x-ray showed no acute change and continues to have right basilar atelectasis. Respiratory secretions have decreased since Sunday, be sent with a sputum for culture again Objective vital signs Vital Sign Date Time Temp Pulse Resp B/P (MAP) Pulse Ox O2 Delivery O2 Flow Rate FiO2 06/01/25 19:00 68 24 151/64 (93) 95 06/01/25 18:03 T-piece 9 35 Cool Aerosol 35 06/01/25 16:30 98.4 98.4 Total Intake and Output 05/31/25 05/31/25 06/01/25 15:00 23:00 07:00 Intake Total 580 ml 840 ml 1480 ml Output Total 1615 ml 1000 ml Balance 580 ml -775 ml 480 ml medications Current Medications Medications Dose Ordered Sig/Jose Alfredo Route Start Time Stop Time Status Last Admin Dose Admin Pantoprazole Sodium 40 mg DAILY IV 04/28/25 10:00 06/01/25 09:25 40 MG Sodium Chloride 10 ml QSHIFT@10,22 IV 05/01/25 10:00 06/01/25 09:27 10 ML Enteral Nutritional Formula 1,000 ml 60ML/HR GT 05/05/25 16:45 05/30/25 21:58 1,000 ML Dextrose 50 ml UD PRN IV 05/07/25 18:00 Vancomycin HCl 150 ml @ 100 mls/hr Q12H IV 05/14/25 21:00 UNV Alprazolam 0.25 mg Q8HP PRN NG 05/15/25 14:45 05/22/25 21:12 0.25 MG Acetaminophen 650 mg Q6HP PRN PO 05/16/25 19:15 05/31/25 09:37 650 MG Psyllium Hydrophilic Mucilloid 1 pkg DAILY PO 05/20/25 10:00 05/30/25 10:48 1 PKG Empaglifozin 10 mg DAILY PO 05/21/25 10:00 06/01/25 09:26 10 MG Levofloxacin/ Dextrose 100 ml @ 100 mls/hr DAILY IV 05/26/25 10:00 06/01/25 09:24 100 MLS/HR Spironolactone 25 mg DAILY NG 05/26/25 10:00 06/01/25 09:30 25 MG Sacubitril/ Valsartan 2 tab BID PO 05/26/25 22:00 06/01/25 09:27 2 TAB Carvedilol 6.25 mg Q12HR PO 05/28/25 10:00 06/01/25 09:26 6.25 MG Acetylcysteine 200 mg Q6HR NEB 05/29/25 00:00 06/01/25 18:03 200 MG Furosemide 40 mg DAILY PO 05/29/25 10:00 06/01/25 09:27 40 MG Levalbuterol HCl 0.625 mg Q6HR [facility] 05/29/25 00:00 06/01/25 18:03 0.625 MG Ipratropium [place] 0.5 mg Q6HR NEB 05/29/25 18:00 06/01/25 18:03 0.5 MG Enoxaparin Sodium 30 mg DAILY SC 05/31/25 10:00 06/01/25 09:25 30 MG Purified Water 200 ml Q8HR NG 05/30/25 22:00 06/01/25 13:10 200 ML Examination Constitutional: Patient is alert and oriented and follows voice commands, currently on tracheostomy and is not on sedation. Gen - no pallor, no icterus, no cyanosis, no clubbing, no LAD, no edema . Skin - Patients skin is warm and dry. HEENT - normocephalic, atraumatic, moist mucous membranes. Neck -right supraclavicular hematoma decreasing in size, no LAD, no JVD Pulmonary - B/L equal breath sounds with decreased coarse rales, no wheezing, no stridor. cardiovascular - regular S1,S2 heard, no added sounds, no murmurs heard. peripheral pulses normal radial 2+, pedal 2+. capillary refill normal <2 secs. GI - soft, nontender abdomen. Bowel sounds normoactive Neurological - Patient is A/O and is responding to voice commands. Bilateral upper extremity strength 4/5, bilateral lower extremity strength 4/5, no facial droop, nonverbal because of tracheostomy, no tremor, no sensory deficiets. laboratory and microbiology Laboratory Tests 06/01/25 03:11 Test 06/01/25 03:11 Range/Units Serum Glucose 150 H 74-106 mg/dL Microbiology Date/Time Source Procedure Growth Status 05/20/25 12:10 Blood Blood Culture - Final NO GROWTH AFTER 5 DAYS OF INCUBATION. Complete 05/20/25 12:05 Pleural Fluid Gram Stain - Final Complete 05/20/25 12:05 Pleural Fluid Aerobic Culture - Final Complete 05/19/25 09:00 Stool Stool Culture - Final Complete 05/19/25 09:00 Stool Shiga Toxin I & II - Final Complete 05/16/25 10:50 Bronchial Washings Gram Stain - Final Complete 05/16/25 10:50 Respiratory Culture - Final Yeast, not Reena albicans Complete 05/12/25 12:44 Voided Urine Urine Culture - Final Complete 05/03/25 20:20 Trachea Gram Stain - Final Complete 05/03/25 20:20 Respiratory Culture - Final Pseudomonas aeruginosa Complete Labs and/or images reviewed: Labs reviewed by me Problem List/Assessment/Plan Problem List/Assessment/Plan Neurology acute metabolic encephalopathy likely due to hypercarbic respiratory failure, resolved - no sedation - patient is alert, interacting using a sign board and following voice commands Cardiovascular 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 Neck hematoma S/p CVC removal from right brachiocephalic/subclavian artery New onset atrial fibrillation/atrial flutter (2-1) with a RVR, resolved Possible sick sinus syndrome Hypertensive heart disease with systolic failure - echocardiogram showed LVEF 25% with severe LV and RV global hypokinesis - goal directed medical therapy with carvedilol, Jardiance, Entresto, spironolactone and Lasix - no arrhythmias noted - most recent CT angio neck showed hematoma of 10.5 X5.6 cm with no active arterial extravasation - chads Vasc 5, but anticoagulation held because of hematoma Respiratory Acute on chronic hypercapnic respiratory failure likely due to COPD exacerbation, resolved S/p mechanical ventilation Pneumonia likely due to Gram +/-bacteria/fungus Pleural effusion likely parapneumonic Mixed metabolic alkalosis with respiratory alkalosis S/p bronchoscopy S/p tracheostomy Status post thoracentesis X 2 - T-piece throughout the day on 05/29 - levalbuterol, ipratropium and acetylcysteine q.6hours - on levofloxacin - to be on trach collar throughout the night - secretions decreased, WBC count decreased with the patient has been afebrile - we will decrease the size of the tracheostomy tomorrow Hem/onc Anemia, normochromic, normocytic Thrombocytopenia, resolved - Hemoglobin improving, continue monitoring - transfusion of 2 apheresis of platelets previously Endocrinology/gastroenterology DM type 2, hba1c 6.7 - ISS, moderate - Tube feedings - lactulose held - Bowel movement noted Renal Hyperkalemia, resolved BAO due to VMN resolved Hypernatremia mild, resolved - continue monitoring electrolytes and kidney function DVT prophylaxis: No anticoagulation as patient has high-risk of bleeding PUD prophylaxis: Protonix PICC line right upper arm 05/01/25 Tracheostomy 05/13 kenney's catheter changed on 04/19/25 tracheostomy tube 05/13/25 Code status: full code Goals of care discussed with the patient's daughter at bedside Critical care time spent excluding procedures: 61 minutes Plan discussed with Dr. Corrales Plan discussed with: Daughter, Other (DUDLEY Ch) My Orders My Orders Orders - ASNHUL DAY RESIDENT Procedure Category Date Status Time Abg W/ Co-Ox RT 06/01/25 Logged 05:20 Respiratory Culture BETSY 06/01/25 In Process W/ Gs 10:39 Basic Metabolic Panel LAB 06/02/25 Verified 04:00 Complete Blood Count LAB 06/02/25 Verified 04:00 Chest Xray 1 View XY 06/02/25 Logged 04:00 Abg W/ Co-Ox RT 06/02/25 Logged 04:00 Dietary Evaluation Review Comments: Nutrition Recommendation: 1. TF Vital AF 1.2 Luis Enrique @ 60 ml/hr. start @ 20ml/hr, increase 10ml/hr Q4H until goal is reached. TF at goal volume provides 100% energy & protein needs - 1728 kcal, 108 gm protein, 1168 ml free water 2. Water flush 140ml Q6H if allowed 3. TPN if NPO> 7 days Expected Outcomes/Goals: To meet >75% estimated needs Fu 2-3 days Date of Service: Jun 01, 2025 Billing Provider: PAMELA CORRALES MD Common Visit Codes: [id number] CARE 30-74 MIN ANSHUL DAY RESIDENT Jun 01, 2025 20:13 PAMELA CORRALES MD Jun 02, 2025 13:29
[2025-06-02] VITALS (73 sets, daily range): BP systolic 96–151; BP diastolic 48–77; PULSE 61–82; RESP 15–32; TEMP 97.8–98.4; O2SAT 90–98
[2025-06-02 03:53] LABS: Hematocrit 36.7 % (41.0-53.0); Hemoglobin 11.9 g/dL (13.5-17.5); Mean Corpuscular Hemoglobin 29.9 pg (28.0-32.0); Mean Corpuscular Volume 91.9 fL (80.0-100.0); Nucleated Red Blood Cells % 0.0 %
[2025-06-02 03:58] LABS: Chloride 106 mmol/L (98-107); Potassium 3.6 mmol/L (3.5-5.1); Sodium 145 mmol/L (136-145)
[2025-06-02 04:00] LABS: Anion Gap 9 (5-15); Calcium 8.6 mg/dL (8.7-10.4); Carbon Dioxide 30 mmol/L (20-31)
[2025-06-02 04:05] LABS: BUN/Creatinine Ratio 56.6 (10.0-20.0)
[2025-06-02 04:06] LABS: Blood Urea Nitrogen 30 mg/dL (9-23); Glucose 180 mg/dL (74-106)
--- NOTE | 2025-06-02 05:20 | DVH ---
CHEST RADIOGRAPH Indication: on trach Technique: Single frontal view of the chest was obtained Comparison: XY CHEST XRAY 1 VIEW on DOS: 05/31/25 FINDINGS: Lines and Tubes: Tracheostomy tube is unchanged. Right PICC terminates in the superior cavoatrial ju nction. The enteric tube courses below the left hemidiaphragm and the tip extends outside the field o f view. Lungs: Right lower lobe atelectasis and trace right pleural effusion. Pleura: No effusion. No pneumothorax. Cardiomediastinal contours: Unremarkable Bones: No acute osseous abnormality. IMPRESSION: 1. Stable position of the support lines and tubes. 2. No significant change in right lower lobe atelectasis and right pleural effusion.
[2025-06-02 07:15] LABS: Base Excess 6.4 mmol/L (-2.0-3.0)
--- NOTE | 2025-06-02 20:29 | DVHPNRES ---
Progress Note Date Seen: Jun 02, 2025 Resident Creating Document: GORDON DAYBRITTA RESIDENT Has the PT tested + for MRSA If YES, has PT been informed?: No Medical Necessity Reason Pt with a Central, PICC or Fol: Yes The following are medically ne: PICC Line, Kenney Catheter Reason for kenney catheter: Strict I&O Subjective Review of Systems 06/02 Patient seen and examined at the bedside. Patient is alert and is responding to voice commands and does not report of any acute pain signals to be feeling better. Overnight patient did not have any fever, blood pressure and heart rate were within normal limits. Urine output over the last 24 hours at 2650 mL. Last bowel movement reported was on 05/31. Tracheostomy was downsized from 8.5 mm to 7.5 mm and was connected to a T-piece as the patient had secretions but has a good cough reflex. Patient tolerated being on the smaller tracheostomy tube without any significant respiratory distress. Objective vital signs Vital Sign Date Time Temp Pulse Resp B/P (MAP) Pulse Ox O2 Delivery O2 Flow Rate FiO2 06/02/25 18:45 70 22 98 06/02/25 18:33 T-piece 9 35 35 06/02/25 18:00 100/61 (74) 06/02/25 16:00 98.4 98.4 Total Intake and Output 06/01/25 06/01/25 06/02/25 15:00 23:00 07:00 Intake Total 100 ml 963 ml 1060 ml Output Total 1525 ml 1125 ml Balance 100 ml -562 ml -65 ml medications Current Medications Medications Dose Ordered Sig/Jose Alfredo Route Start Time Stop Time Status Last Admin Dose Admin Pantoprazole Sodium 40 mg DAILY IV 04/28/25 10:00 06/02/25 09:58 40 MG Sodium Chloride 10 ml QSHIFT@10,22 IV 05/01/25 10:00 06/02/25 09:58 10 ML Enteral Nutritional Formula 1,000 ml 60ML/HR GT 05/05/25 16:45 05/30/25 21:58 1,000 ML Dextrose 50 ml UD PRN IV 05/07/25 18:00 Vancomycin HCl 150 ml @ 100 mls/hr Q12H IV 05/14/25 21:00 UNV Alprazolam 0.25 mg Q8HP PRN NG 05/15/25 14:45 05/22/25 21:12 0.25 MG Acetaminophen 650 mg Q6HP PRN PO 05/16/25 19:15 05/31/25 09:37 650 MG Psyllium Hydrophilic Mucilloid 1 pkg DAILY PO 05/20/25 10:00 06/02/25 10:03 1 PKG Empaglifozin 10 mg DAILY PO 05/21/25 10:00 06/02/25 09:58 10 MG Levofloxacin/ Dextrose 100 ml @ 100 mls/hr DAILY IV 05/26/25 10:00 06/02/25 09:58 100 MLS/HR Carvedilol 6.25 mg Q12HR PO 05/28/25 10:00 06/02/25 10:00 6.25 MG Acetylcysteine 200 mg Q6HR NEB 05/29/25 00:00 06/02/25 18:33 200 MG Furosemide 40 mg DAILY PO 05/29/25 10:00 06/02/25 10:00 40 MG Levalbuterol HCl 0.625 mg Q6HR NEB 05/29/25 00:00 06/02/25 18:30 0.625 MG Ipratropium [place] 0.5 mg Q6HR NEB 05/29/25 18:00 06/02/25 18:30 0.5 MG Enoxaparin Sodium 30 mg DAILY SC 05/31/25 10:00 06/02/25 10:01 30 MG Spironolactone 25 mg DAILY NG 06/03/25 10:00 Purified Water 200 ml Q12HR NG 06/02/25 22:00 Sacubitril/ Valsartan 1.5 tab BID PO 06/02/25 22:00 Examination Constitutional: Patient is alert and oriented and follows voice commands, currently on tracheostomy on T-piece. Gen - no pallor, no icterus, no cyanosis, no clubbing, no LAD, no edema . Skin - Patients skin is warm and dry. HEENT - normocephalic, atraumatic, moist mucous membranes. Neck -right supraclavicular hematoma decreasing in size, no LAD, no JVD Pulmonary - B/L equal breath sounds with coarse rales cleared on suctioning and coughing up phlegm, no wheezing, no stridor. cardiovascular - regular S1,S2 heard, no added sounds, no murmurs heard. peripheral pulses normal radial 2+, pedal 2+. capillary refill normal <2 secs. GI - soft, nontender abdomen. Bowel sounds normoactive Neurological - Patient is A/O and is responding to voice commands. Bilateral upper extremity strength 4/5, bilateral lower extremity strength 4/5, no facial droop, nonverbal because of tracheostomy, no tremor, no sensory deficiets. laboratory and microbiology Laboratory Tests 06/02/25 02:45 Test 06/02/25 02:45 Range/Units Serum Glucose 180 H 74-106 mg/dL Microbiology Date/Time Source Procedure Growth Status 06/01/25 12:07 Trachea Gram Stain - Final Resulted 06/01/25 12:07 Trachea Respiratory Culture - Preliminary Resulted 05/20/25 12:10 Blood Blood Culture - Final NO GROWTH AFTER 5 DAYS OF INCUBATION. Complete 05/20/25 12:05 Pleural Fluid Gram Stain - Final Complete 05/20/25 12:05 Pleural Fluid Aerobic Culture - Final Complete 05/19/25 09:00 Stool Stool Culture - Final Complete 05/19/25 09:00 Stool Shiga Toxin I & II - Final Complete 05/16/25 10:50 Bronchial Washings Gram Stain - Final Complete 05/16/25 10:50 Respiratory Culture - Final Yeast, not Reena albicans Complete 05/12/25 12:44 Voided Urine Urine Culture - Final Complete Problem List/Assessment/Plan Problem List/Assessment/Plan Neurology acute metabolic encephalopathy likely due to hypercarbic respiratory failure, resolved - no sedation - patient is alert, interacting using a sign board and following voice commands Cardiovascular 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 Neck hematoma S/p CVC removal from right brachiocephalic/subclavian artery New onset atrial fibrillation/atrial flutter (2-1) with a RVR, resolved Possible sick sinus syndrome Hypertensive heart disease with systolic failure - echocardiogram showed LVEF 25% with severe LV and RV global hypokinesis - goal directed medical therapy with carvedilol, Jardiance, Entresto, spironolactone and Lasix - no arrhythmias noted - most recent CT angio neck showed hematoma of 10.5 X5.6 cm with no active arterial extravasation - chads Vasc 5, but anticoagulation held because of hematoma Respiratory Acute on chronic hypercapnic respiratory failure likely due to COPD exacerbation, resolved S/p mechanical ventilation Pneumonia likely due to Gram +/-bacteria/fungus Pleural effusion likely parapneumonic Mixed metabolic alkalosis with respiratory alkalosis S/p bronchoscopy S/p tracheostomy Status post thoracentesis X 2 - decrease the size of the tracheostomy on 06/02 to 7.5 mm - levalbuterol, ipratropium and acetylcysteine q.6hours - on levofloxacin - to be on trach collar throughout the night - continues to have secretions but remained afebrile and decreased WBC count. - repeat cultures showed growth of Gram-negative reports still waiting for sensitivities Hem/onc Anemia, normochromic, normocytic Thrombocytopenia, resolved - Hemoglobin improving, continue monitoring - transfusion of 2 apheresis of platelets previously Endocrinology/gastroenterology DM type 2, hba1c 6.7 - ISS, moderate - Tube feedings - last bowel movement noted on 05/31 Renal Hyperkalemia, resolved BAO due to VMN resolved Hypernatremia mild, resolved - continue monitoring electrolytes and kidney function DVT prophylaxis: No anticoagulation as patient has high-risk of bleeding PUD prophylaxis: Protonix PICC line right upper arm 05/01/25 Tracheostomy 05/13, down sized on 06/02 kenney's catheter changed on 04/19/25 Code status: full code Goals of care discussed with the patient's daughter and at bedside Critical care time spent excluding procedures: 67 minutes Plan discussed with Dr. Corrales Plan discussed with: Spouse, Daughter, Other (DUDLEY Abdullahi) My Orders My Orders Orders - ANSHUL DAY RESIDENT Procedure Category Date Status Time Spironolactone PHA 06/03/25 In Process (Aldactone) 10:00 Free Water PHA 06/02/25 In Process 22:00 Sacubitril-Valsartan PHA 06/02/25 In Process (Entresto 24-26 Mg 22:00 Basic Metabolic Panel LAB 06/03/25 Verified 04:00 Complete Blood Count LAB 06/03/25 Verified 04:00 Chest Xray 1 View XY 06/03/25 Logged 04:00 Abg W/ Co-Ox RT 06/03/25 Logged 04:00 Dietary Evaluation Review Comments: Nutrition Recommendation: 1. TF Vital AF 1.2 Luis Enrique @ 60 ml/hr. start @ 20ml/hr, increase 10ml/hr Q4H until goal is reached. TF at goal volume provides 100% energy & protein needs - 1728 kcal, 108 gm protein, 1168 ml free water 2. Water flush 140ml Q6H if allowed 3. TPN if NPO> 7 days Expected Outcomes/Goals: To meet >75% estimated needs Fu 2-3 days Date of Service: Jun 02, 2025 Billing Provider: PAMELA CORRALES MD Common Visit Codes: [id number] CARE 30-74 MIN ANSHUL DAY RESIDENT Jun 02, 2025 20:29 PAMELA CORRALES MD Jun 03, 2025 13:57
[2025-06-02] MEDS: SACUBITRIL-VALSARTAN 24mg/26mg TAB PO SCH (21:59)
[2025-06-02] MEDS: FREE WATER NG SCH (22:04)
[2025-06-03] VITALS (61 sets, daily range): BP systolic 67–170; BP diastolic 36–67; PULSE 62–80; RESP 12–32; TEMP 97.4–99.4; O2SAT 89–100
--- NOTE | 2025-06-03 03:05 | DVH ---
CHEST RADIOGRAPH Indication: s/p downsizing tracheostomy Technique: 1 view Comparison: XY CHEST XRAY 1 VIEW on DOS: 06/02/25, XY CHEST XRAY 1 VIEW on DOS: 05/31/25, XY CHEST PORTAB LE on DOS: 05/30/25, XY CHEST XRAY 1 VIEW on DOS: 05/30/25, XY CHEST XRAY 1 VIEW on DOS: 05/29/25 FINDINGS: Lines and Tubes: Tracheostomy tube terminates at the level of the inferior clavicular heads. Enteric tube and right upper extremity PICC are unchanged. Lungs: Persistent mild bilateral perihilar interstitial opacities and right basilar atelectasis. Pleura: Suspected small right pleural effusion. No pneumothorax. Cardiomediastinal contours: Unchanged. Other: Unchanged. IMPRESSION: Interval endotracheal tube exchange. No other significant interval change from the previous study.
[2025-06-03 03:39] LABS: Hematocrit 36.6 % (41.0-53.0); Hemoglobin 12.1 g/dL (13.5-17.5); Mean Corpuscular Hemoglobin 30.1 pg (28.0-32.0); Mean Corpuscular Volume 91.3 fL (80.0-100.0); Nucleated Red Blood Cells % 0.2 %
[2025-06-03 04:06] LABS: Anion Gap 7 (5-15); Chloride 104 mmol/L (98-107); Sodium 142 mmol/L (136-145)
[2025-06-03 04:08] LABS: Calcium 8.7 mg/dL (8.7-10.4); Carbon Dioxide 31 mmol/L (20-31); Potassium 3.5 mmol/L (3.5-5.1)
[2025-06-03 04:12] LABS: BUN/Creatinine Ratio 47.6 (10.0-20.0)
[2025-06-03 04:14] LABS: Blood Urea Nitrogen 30 mg/dL (9-23); Glucose 177 mg/dL (74-106)
[2025-06-03 08:58] LABS: Base Excess 5.1 mmol/L (-2.0-3.0)
[2025-06-03] MEDS: SPIRONOLACTONE 25 MG TAB NG SCH (09:51)
[2025-06-03] MEDS: LACTULOSE 20Gm/30ML SOLN PO ONE (11:54)
[2025-06-03] MEDS: POTASSIUM EFFERVESENT TAB 25 MEQ GT ONE (11:54)
[2025-06-03] MEDS: NYSTATIN (MOUTH-THROAT) 500,000 UNITS/5 ML SUSP MT ONE (14:58)
[2025-06-03] MEDS: TOBRAMYCIN 300 MG/5 ML NEB SOLN NEB ONE (15:59)
[2025-06-03] MEDS: NYSTATIN (MOUTH-THROAT) 500,000 UNITS/5 ML SUSP MT SCH (18:29)
--- NOTE | 2025-06-03 21:58 | DVHPNRES ---
Progress Note Date Seen: Jun 03, 2025 Resident Creating Document: GORDON DAYBRITTA RESIDENT Has the PT tested + for MRSA If YES, has PT been informed?: No Medical Necessity Reason Pt with a Central, PICC or Fol: Yes The following are medically ne: PICC Line, Kenney Catheter Reason for kenney catheter: Strict I&O Subjective Review of Systems 06/03 Patient seen and examined at the bedside. Patient is alert and is responding to voice commands and does not report of any acute pain signals to be feeling better. Overnight patient did not have any fever, blood pressure and heart rate were within normal limits. Urine output over the last 24 hours at 1950 mL. Last bowel movement reported was on 05/31. Since the tracheostomy was downsized yesterday, patient did not show any respiratory distress overnight. Patient tolerated 1 valve for a brief period of 2 hours with a any respiratory distress. Sputum cultures are showing Gram-negative rods-Pseudomonas. ABG reviewed showed respiratory acidosis with metabolic alkalosis Objective vital signs Vital Sign Date Time Temp Pulse Resp B/P (MAP) Pulse Ox O2 Delivery O2 Flow Rate FiO2 06/03/25 21:32 69 116/64 06/03/25 20:00 24 93 T-piece 8 35 35 06/03/25 16:00 97.7 97.7 Total Intake and Output 06/02/25 06/02/25 06/03/25 15:00 23:00 07:00 Intake Total 100 ml 540 ml 1060 ml Output Total 1100 ml 850 ml Balance 100 ml -560 ml 210 ml medications Current Medications Medications Dose Ordered Sig/Jose Alfredo Route Start Time Stop Time Status Last Admin Dose Admin Pantoprazole Sodium 40 mg DAILY IV 04/28/25 10:00 06/03/25 09:49 40 MG Sodium Chloride 10 ml QSHIFT@10,22 IV 05/01/25 10:00 06/03/25 21:30 10 ML Enteral Nutritional Formula 1,000 ml 60ML/HR GT 05/05/25 16:45 06/03/25 09:53 1,000 ML Dextrose 50 ml UD PRN IV 05/07/25 18:00 Vancomycin HCl 150 ml @ 100 mls/hr Q12H IV 05/14/25 21:00 UNV Alprazolam 0.25 mg Q8HP PRN NG 05/15/25 14:45 05/22/25 21:12 0.25 MG Acetaminophen 650 mg Q6HP PRN PO 05/16/25 19:15 05/31/25 09:37 650 MG Empaglifozin 10 mg DAILY PO 05/21/25 10:00 06/03/25 09:51 10 MG Levofloxacin/ Dextrose 100 ml @ 100 mls/hr DAILY IV 05/26/25 10:00 06/03/25 09:49 100 MLS/HR Carvedilol 6.25 mg Q12HR PO 05/28/25 10:00 06/03/25 21:32 6.25 MG Acetylcysteine 200 mg Q6HR NEB 05/29/25 00:00 06/03/25 18:00 200 MG Furosemide 40 mg DAILY PO 05/29/25 10:00 06/03/25 09:50 40 MG Levalbuterol HCl 0.625 mg Q6HR [facility] 05/29/25 00:00 06/03/25 19:01 0.625 MG Ipratropium [place] 0.5 mg Q6HR [facility] 05/29/25 18:00 06/03/25 19:01 0.5 MG Enoxaparin Sodium 30 mg DAILY SC 05/31/25 10:00 06/03/25 09:49 30 MG Spironolactone 25 mg DAILY NG 06/03/25 10:00 06/03/25 09:51 25 MG Purified Water 200 ml Q12HR 06/02/25 22:00 06/03/25 21:32 200 ML Sacubitril/ Valsartan 1.5 tab BID PO 06/02/25 22:00 06/03/25 21:31 1.5 TAB Nystatin 5 ml QID MT 06/03/25 18:00 06/03/25 21:31 5 ML Examination Constitutional: Patient is alert and oriented and follows voice commands, currently on tracheostomy on T-piece. Gen - no pallor, no icterus, no cyanosis, no clubbing, no LAD, no edema . Skin - Patients skin is warm and dry. HEENT - normocephalic, atraumatic, moist mucous membranes. Neck -right supraclavicular hematoma decreasing in size, no LAD, no JVD Pulmonary - B/L equal breath sounds with coarse rales cleared on suctioning and coughing up phlegm, no wheezing, no stridor. cardiovascular - regular S1,S2 heard, no added sounds, no murmurs heard. peripheral pulses normal radial 2+, pedal 2+. capillary refill normal <2 secs. GI - soft, nontender abdomen. Bowel sounds normoactive Neurological - Patient is A/O and is responding to voice commands. Bilateral upper extremity strength 4/5, bilateral lower extremity strength 4/5, no facial droop, nonverbal because of tracheostomy, no tremor, no sensory deficiets. laboratory and microbiology Laboratory Tests 06/03/25 02:23 Test 06/03/25 02:23 Range/Units Serum Glucose 177 H 74-106 mg/dL Microbiology Date/Time Source Procedure Growth Status 06/01/25 12:07 Trachea Gram Stain - Final Resulted 06/01/25 12:07 Trachea Respiratory Culture - Preliminary Resulted 05/20/25 12:10 Blood Blood Culture - Final NO GROWTH AFTER 5 DAYS OF INCUBATION. Complete 05/20/25 12:05 Pleural Fluid Gram Stain - Final Complete 05/20/25 12:05 Pleural Fluid Aerobic Culture - Final Complete 05/19/25 09:00 Stool Stool Culture - Final Complete 05/19/25 09:00 Stool Shiga Toxin I & II - Final Complete 05/16/25 10:50 Bronchial Washings Gram Stain - Final Complete 05/16/25 10:50 Respiratory Culture - Final Yeast, not Reena albicans Complete 05/12/25 12:44 Voided Urine Urine Culture - Final Complete Problem List/Assessment/Plan Problem List/Assessment/Plan Neurology acute metabolic encephalopathy likely due to hypercarbic respiratory failure, resolved - no sedation - patient is alert, interacting using a sign board and following voice commands Cardiovascular 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 Neck hematoma S/p CVC removal from right brachiocephalic/subclavian artery New onset atrial fibrillation/atrial flutter (2-1) with a RVR, resolved Possible sick sinus syndrome Hypertensive heart disease with systolic failure - echocardiogram showed LVEF 25% with severe LV and RV global hypokinesis - goal directed medical therapy with carvedilol, Jardiance, Entresto, spironolactone and Lasix - no arrhythmias noted - most recent CT angio neck showed hematoma of 10.5 X5.6 cm with no active arterial extravasation - chads Vasc 5, but anticoagulation held because of hematoma Respiratory Acute on chronic hypercapnic respiratory failure likely due to COPD exacerbation, resolved S/p mechanical ventilation Pneumonia likely due to Gram +/-bacteria/fungus Pleural effusion likely parapneumonic Mixed metabolic alkalosis with respiratory alkalosis S/p bronchoscopy S/p tracheostomy Status post thoracentesis X 2 - decrease the size of the tracheostomy on 06/02 to 7.5 mm - levalbuterol, ipratropium and acetylcysteine q.6hours - on levofloxacin - to be on trach collar throughout the night - continues to have secretions but remained afebrile and decreased WBC count. - repeat cultures showed growth of Gram-negative rods- Pseudomonas aeruginosa Hem/onc Anemia, normochromic, normocytic Thrombocytopenia, resolved - Hemoglobin improving, continue monitoring - transfusion of 2 apheresis of platelets previously Endocrinology/gastroenterology DM type 2, hba1c 6.7 - ISS, moderate - Tube feedings - last bowel movement noted on 05/31 Renal Hyperkalemia, resolved BAO due to VMN resolved Hypernatremia mild, resolved - continue monitoring electrolytes and kidney function DVT prophylaxis: No anticoagulation as patient has high-risk of bleeding PUD prophylaxis: Protonix PICC line right upper arm 05/01/25 Tracheostomy 05/13, down sized on 06/02 kenney's catheter changed on 04/19/25 Code status: full code Goals of care discussed with the patient's daughter and at bedside Critical care time spent excluding procedures: 63 minutes Plan discussed with Dr. Corrales Plan discussed with: Spouse, Daughter, Other (DUDLEY Abdullahi) My Orders My Orders Orders - ANSHUL DAY RESIDENT Procedure Category Date Status Time Basic Metabolic Panel LAB 06/04/25 Verified 04:00 Complete Blood Count LAB 06/04/25 Verified 04:00 Abg W/ Co-Ox RT 06/04/25 Logged 04:00 Dietary Evaluation Review Comments: Nutrition Recommendation: 1. TF Vital AF 1.2 Luis Enrique @ 60 ml/hr. start @ 20ml/hr, increase 10ml/hr Q4H until goal is reached. TF at goal volume provides 100% energy & protein needs - 1728 kcal, 108 gm protein, 1168 ml free water 2. Water flush 140ml Q6H if allowed 3. TPN if NPO> 7 days Expected Outcomes/Goals: To meet >75% estimated needs Fu 2-3 days Date of Service: Jun 03, 2025 Billing Provider: PAMELA CORRALES MD Common Visit Codes: [id number] CARE 30-74 MIN ANSHUL DAY RESIDENT Jun 03, 2025 21:58 PAMELA CORRALES MD Jun 04, 2025 13:00
[2025-06-03] MEDS: TOBRAMYCIN 300 MG/5 ML NEB SOLN NEB SCH (22:00)
[2025-06-04] VITALS (39 sets, daily range): BP systolic 79–137; BP diastolic 35–62; PULSE 62–72; RESP 15–32; TEMP 98.2–98.8; O2SAT 92–100
[2025-06-04 06:16] LABS: Hematocrit 37.1 % (41.0-53.0); Hemoglobin 12.3 g/dL (13.5-17.5); Mean Corpuscular Hemoglobin 30.6 pg (28.0-32.0); Mean Corpuscular Volume 92.3 fL (80.0-100.0); Nucleated Red Blood Cells % 0.1 %
[2025-06-04 06:21] LABS: Chloride 103 mmol/L (98-107); Potassium 3.7 mmol/L (3.5-5.1); Sodium 143 mmol/L (136-145)
[2025-06-04 06:22] LABS: Anion Gap 7 (5-15)
[2025-06-04 06:23] LABS: Calcium 9.0 mg/dL (8.7-10.4)
[2025-06-04 06:29] LABS: BUN/Creatinine Ratio 46.9 (10.0-20.0); Blood Urea Nitrogen 30 mg/dL (9-23); Carbon Dioxide 33 mmol/L (20-31); Glucose 205 mg/dL (74-106)
--- NOTE | 2025-06-04 09:56 | DVH ---
EXAM: XY CHEST XRAY 1 VIEW Indication: s/p downsizing trach, inreased secretions Technique: Single frontal view of the chest was obtained Comparison: XY CHEST XRAY 1 VIEW on DOS: 06/03/25, XY CHEST XRAY 1 VIEW on DOS: 06/02/25, XY CHEST XRAY 1 VIEW on DOS: 05/31/25, XY CHEST PORTABLE on DOS: 05/30/25, XY CHEST XRAY 1 VIEW on DOS: 05/30/25 FINDINGS: Lines and Tubes: Enteric tube tip projects over the expected region the stomach. Tracheostomy tube is visualized. Right PICC tip projects over the superior vena cava. Lungs: Right basilar opacity. Pleura: No effusion. No pneumothorax. Cardiomediastinal contours: Unremarkable Bones: No acute osseous abnormality. IMPRESSION: No significant change compared to prior exam.
--- NOTE | 2025-06-04 15:36 | DVH ---
Procedure: CT CHEST WITHOUT CONTRAST Reason for study/Clinical History: right lower lobe consolidation Comparison Study: XY CHEST XRAY 1 VIEW on DOS: 06/04/25, XY CHEST XRAY 1 VIEW on DOS: 06/03/25, XY CHEST XRAY 1 VIEW on DOS: 06/02/25 Exam Date: 06/04/2025 03:07 PM TECHNIQUE: Multidetector CT of the chest was performed from the lung apices to the upper abdomen with out the use of intravenous contract. Axial, coronal and sagittal multiplanar reformats were performed . Radiation Dose Information: CT Dose: CTDI volume is 7.6 mGy. Dose-length product is 294 mGy*cm The dose indicators for CT are the volume Computed Tomography (CT) Dose Index (CTDIvol) and the Dose Length Product (DLP), and are measured in units of mGy and mGy-cm, respectively. These indicators are not patient dose, but values generated from the CT scanner acquisition factors. The report includes radiation exposure data for exposures received during this examination. FINDINGS: Lower neck: Normal thyroid. A tracheostomy tube is present. Central line is present. Lungs: Focal consolidation right lower lobe. Questionable filling defect right lower lobe bronchus. L eft lung clear. Heart/Vascular Structures: Heart size enlarged. Slight pericardial thickening.. Lymph Nodes: No adenopathy Pleura: No pleural effusion or significant pneumothorax. Musculoskeletal: No acute osseous abnormality. Soft tissues: Normal. Upper abdomen: Limited portions of the upper abdomen are unremarkable. NG tube tip in the stomach IMPRESSION: 1. Focal consolidation right lower lobe. Questionable filling defect right lower lobe bronchus Radiation optimization: All CT scans at this facility use at least one of these dose optimization dany hniques: automated exposure control mA and/or kV adjustment per patient size (includes targeted exam s where dose is matched to clinical indication) or iterative reconstruction.
--- NOTE | 2025-06-04 18:46 | DVHPNRES ---
Progress Note Date Seen: Jun 04, 2025 Resident Creating Document: GORDON DAYBRITTA RESIDENT Has the PT tested + for MRSA If YES, has PT been informed?: No Medical Necessity Reason Pt with a Central, PICC or Fol: Yes The following are medically ne: PICC Line, Kenney Catheter Reason for kenney catheter: Strict I&O Subjective Review of Systems 06/04 Patient seen and examined at the bedside. Patient is alert and is responding to voice commands and does not report of any acute pain signals to be feeling better. Overnight patient did not have any fever, hypotension on few occasions following which Entresto was decreased to 1 tablet b.i.d. and carvedilol dose was decreased. Urine output over the last 24 hours at 1850 mL. Last bowel movement reported was on 05/31. Overnight patient had some respiratory distress for about 2 hours when he had to be put on a T-piece but then again was put on 1 day speaking valve. Sputum cultures are showing Gram-negative rods-Pseudomonas. ABG reviewed showed respiratory acidosis with metabolic alkalosis Objective vital signs Vital Sign Date Time Temp Pulse Resp B/P (MAP) Pulse Ox O2 Delivery O2 Flow Rate FiO2 06/04/25 18:00 69 20 125/47 (73) 97 06/04/25 17:57 Nasal Cannula* 3 32 06/04/25 16:00 98.6 98.6 Total Intake and Output 06/03/25 06/03/25 06/04/25 15:00 23:00 07:00 Intake Total 100 ml 881 ml 939 ml Output Total 1050 ml 800 ml Balance 100 ml -169 ml 139 ml medications Current Medications Medications Dose Ordered Sig/Jose Alfredo Route Start Time Stop Time Status Last Admin Dose Admin Pantoprazole Sodium 40 mg DAILY IV 04/28/25 10:00 06/04/25 07:22 40 MG Sodium Chloride 10 ml QSHIFT@10,22 IV 05/01/25 10:00 06/04/25 07:22 10 ML Enteral Nutritional Formula 1,000 ml 60ML/HR GT 05/05/25 16:45 06/04/25 05:57 1,000 ML Dextrose 50 ml UD PRN IV 05/07/25 18:00 Vancomycin HCl 150 ml @ 100 mls/hr Q12H IV 05/14/25 21:00 UNV Alprazolam 0.25 mg Q8HP PRN NG 05/15/25 14:45 05/22/25 21:12 0.25 MG Acetaminophen 650 mg Q6HP PRN PO 05/16/25 19:15 05/31/25 09:37 650 MG Empaglifozin 10 mg DAILY PO 05/21/25 10:00 06/04/25 07:23 10 MG Levofloxacin/ Dextrose 100 ml @ 100 mls/hr DAILY IV 05/26/25 10:00 06/04/25 07:39 100 MLS/HR Acetylcysteine 200 mg Q6HR NEB 05/29/25 00:00 06/04/25 11:53 200 MG Furosemide 40 mg DAILY PO 05/29/25 10:00 06/04/25 07:40 40 MG Levalbuterol HCl 0.625 mg Q6HR NEB 05/29/25 00:00 06/04/25 11:53 0.625 MG Ipratropium [place] 0.5 mg Q6HR [facility] 05/29/25 18:00 06/04/25 11:53 0.5 MG Enoxaparin Sodium 30 mg DAILY SC 05/31/25 10:00 06/04/25 07:41 30 MG Spironolactone 25 mg DAILY 06/03/25 10:00 06/04/25 07:39 25 MG Purified Water 200 ml Q12HR 06/02/25 22:00 06/04/25 07:57 200 ML Nystatin 5 ml QID MT 06/03/25 18:00 06/04/25 16:59 5 ML Sacubitril/ Valsartan 1 tab BID PO 06/04/25 22:00 Carvedilol 3.125 mg Q12HR PO 06/04/25 22:00 Examination Constitutional: Patient is alert and oriented and follows voice commands, currently on tracheostomy on T-piece. Gen - no pallor, no icterus, no cyanosis, no clubbing, no LAD, no edema . Skin - Patients skin is warm and dry. HEENT - normocephalic, atraumatic, moist mucous membranes. Neck -right supraclavicular hematoma decreasing in size, no LAD, no JVD Pulmonary - B/L equal breath sounds with coarse rales more on the right lower side, no wheezing, no stridor. cardiovascular - regular S1,S2 heard, no added sounds, no murmurs heard. peripheral pulses normal radial 2+, pedal 2+. capillary refill normal <2 secs. GI - soft, nontender abdomen. Bowel sounds normoactive Neurological - Patient is A/O and is responding to voice commands. Bilateral upper extremity strength 4/5, bilateral lower extremity strength 4/5, no facial droop, nonverbal because of tracheostomy, no tremor, no sensory deficiets. laboratory and microbiology Laboratory Tests 06/04/25 05:43 Test 06/04/25 05:43 Range/Units Serum Glucose 205 H 74-106 mg/dL Microbiology Date/Time Source Procedure Growth Status 06/01/25 12:07 Trachea Gram Stain - Final Resulted 06/01/25 12:07 Trachea Respiratory Culture - Preliminary Resulted 05/20/25 12:10 Blood Blood Culture - Final NO GROWTH AFTER 5 DAYS OF INCUBATION. Complete 05/20/25 12:05 Pleural Fluid Gram Stain - Final Complete 05/20/25 12:05 Pleural Fluid Aerobic Culture - Final Complete 05/19/25 09:00 Stool Stool Culture - Final Complete 05/19/25 09:00 Stool Shiga Toxin I & II - Final Complete 05/16/25 10:50 Bronchial Washings Gram Stain - Final Complete 05/16/25 10:50 Respiratory Culture - Final Yeast, not Reena albicans Complete 05/12/25 12:44 Voided Urine Urine Culture - Final Complete Problem List/Assessment/Plan Problem List/Assessment/Plan Neurology acute metabolic encephalopathy likely due to hypercarbic respiratory failure, resolved - no sedation - patient is alert, interacting using a sign board and following voice commands Cardiovascular 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 Neck hematoma S/p CVC removal from right brachiocephalic/subclavian artery New onset atrial fibrillation/atrial flutter (2-1) with a RVR, resolved Possible sick sinus syndrome Hypertensive heart disease with systolic failure - echocardiogram showed LVEF 25% with severe LV and RV global hypokinesis - goal directed medical therapy with carvedilol, Jardiance, Entresto, spironolactone and Lasix - no arrhythmias noted - most recent CT angio neck showed hematoma of 10.5 X5.6 cm with no active arterial extravasation - chads Vasc 5, but anticoagulation held because of hematoma Respiratory Acute on chronic hypercapnic respiratory failure likely due to COPD exacerbation, resolved S/p mechanical ventilation Pneumonia likely due to Gram +/-bacteria/fungus Pleural effusion likely parapneumonic Mixed metabolic alkalosis with respiratory alkalosis S/p bronchoscopy S/p tracheostomy Status post thoracentesis X 2 - decrease the size of the tracheostomy on 06/02 to 7.5 mm - levalbuterol, ipratropium and acetylcysteine q.6hours - on levofloxacin - to be on trach collar throughout the night - continues to have secretions but remained afebrile and decreased WBC count. - repeat cultures showed growth of Gram-negative rods- Pseudomonas aeruginosa - consolidation in the right lower lobe seen on chest CT done on 06/04 Hem/onc Anemia, normochromic, normocytic Thrombocytopenia, resolved - Hemoglobin improving, continue monitoring - transfusion of 2 apheresis of platelets previously Endocrinology/gastroenterology DM type 2, hba1c 6.7 - ISS, moderate - Tube feedings - last bowel movement noted on 05/31 Renal Hyperkalemia, resolved BAO due to VMN resolved Hypernatremia mild, resolved - continue monitoring electrolytes and kidney function DVT prophylaxis: No anticoagulation as patient has high-risk of bleeding PUD prophylaxis: Protonix PICC line right upper arm 05/01/25 Tracheostomy 05/13, down sized on 06/02 kenney's catheter changed on 04/19/25 Code status: full code Goals of care discussed with the patient's daughter and at bedside Critical care time spent excluding procedures: 51 minutes Plan discussed with Dr. Corrales Plan discussed with: Patient, Spouse, Daughter, Other (DUDLEY Sena) My Orders My Orders Orders - ANSHUL DAY RESIDENT Procedure Category Date Status Time Chest Xray 1 View XY 06/04/25 Resulted 07:42 Sacubitril-Valsartan PHA 06/04/25 In Process (Entresto 24-26 Mg 22:[address] 06/04/25 Resulted 14:08 Basic Metabolic Panel LAB 06/05/25 Verified 04:00 Complete Blood Count LAB 06/05/25 Verified 04:00 Dietary Evaluation Review Comments: Nutrition Recommendation: 1. TF Vital AF 1.2 Luis Enrique @ 60 ml/hr. start @ 20ml/hr, increase 10ml/hr Q4H until goal is reached. TF at goal volume provides 100% energy & protein needs - 1728 kcal, 108 gm protein, 1168 ml free water 2. Water flush 140ml Q6H if allowed 3. TPN if NPO> 7 days Expected Outcomes/Goals: To meet >75% estimated needs Fu 2-3 days Date of Service: Jun 04, 2025 Billing Provider: PAMELA CORRALES MD Common Visit Codes: [id number] CARE 30-74 MIN ANSHUL DAY RESIDENT Jun 04, 2025 18:46 PAMELA CORRALES MD Jun 07, 2025 15:34
[2025-06-04] MEDS: ACETYLCYSTEINE 20%(200MG/ML) SOL 4ML ONE (19:11)
[2025-06-04] MEDS: IPRATROPIUM BROM 0.5 MG/2.5ML INH SOL ONE (19:11)
[2025-06-04] MEDS: LEVALBUTEROL HCL 1.25 MG/3 ML NEB ONE (19:11)
[2025-06-04] MEDS: CARVEDILOL 3.125 MG TAB PO SCH (22:00)
[2025-06-04] MEDS: SACUBITRIL-VALSARTAN 24mg/26mg TAB PO SCH (22:00)
[2025-06-05] VITALS (41 sets, daily range): BP systolic 42–132; BP diastolic 42–61; PULSE 62–79; RESP 16–28; TEMP 97.7–99.4; O2SAT 87–100
[2025-06-05 07:25] LABS: Hematocrit 37.4 % (41.0-53.0); Hemoglobin 12.1 g/dL (13.5-17.5); Mean Corpuscular Hemoglobin 29.9 pg (28.0-32.0); Mean Corpuscular Volume 92.4 fL (80.0-100.0); Nucleated Red Blood Cells % 0.0 %
[2025-06-05 07:28] LABS: Anion Gap 9 (5-15); Chloride 104 mmol/L (98-107); Potassium 4.0 mmol/L (3.5-5.1)
[2025-06-05 07:30] LABS: Calcium 9.1 mg/dL (8.7-10.4)
[2025-06-05 07:34] LABS: BUN/Creatinine Ratio 54.0 (10.0-20.0)
[2025-06-05 07:46] LABS: Blood Urea Nitrogen 34 mg/dL (9-23); Carbon Dioxide 34 mmol/L (20-31); Glucose 195 mg/dL (74-106); Sodium 147 mmol/L (136-145)
--- NOTE | 2025-06-05 18:27 | DVHPNRES ---
Progress Note Date Seen: Jun 05, 2025 Resident Creating Document: GORDON DAYBRITTA RESIDENT Has the PT tested + for MRSA If YES, has PT been informed?: No Medical Necessity Reason Pt with a Central, PICC or Fol: Yes The following are medically ne: PICC Line, Kenney Catheter Reason for kenney catheter: Strict I&O Subjective Review of Systems 06/04 Patient seen and examined at the bedside. Patient is alert and is responding to voice commands and does not report of any acute pain signals to be feeling better. Overnight patient did not have any fever, hypotension on few occasions following which Entresto was decreased to 0.5 tablet b.i.d. and carvedilol dose was decreased. Last bowel movement reported was on 05/31. no respiratory distress noted [address] way speaking valve, has minimal thick secretions. Sputum cultures are showing Gram-negative rods-Pseudomonas. Objective vital signs Vital Sign Date Time Temp Pulse Resp B/P (MAP) Pulse Ox O2 Delivery O2 Flow Rate FiO2 06/05/25 17:30 17 97 Nasal Cannula* 3 32 06/05/25 17:30 73 06/05/25 17:00 99.4 42/ (14) 99.4 Total Intake and Output 06/04/25 06/04/25 06/05/25 15:00 23:00 07:00 Intake Total 300 ml 812 ml Output Total 850 ml 700 ml Balance -550 ml 112 ml medications Current Medications Medications Dose Ordered Sig/Jose Alfredo Route Start Time Stop Time Status Last Admin Dose Admin Pantoprazole Sodium 40 mg DAILY IV 04/28/25 10:00 06/05/25 07:20 40 MG Sodium Chloride 10 ml QSHIFT@10,22 IV 05/01/25 10:00 06/05/25 07:20 10 ML Enteral Nutritional Formula 1,000 ml 60ML/HR GT 05/05/25 16:45 06/05/25 13:00 1,000 ML Dextrose 50 ml UD PRN IV 05/07/25 18:00 Vancomycin HCl 150 ml @ 100 mls/hr Q12H IV 05/14/25 21:00 UNV Alprazolam 0.25 mg Q8HP PRN NG 05/15/25 14:45 05/22/25 21:12 0.25 MG Acetaminophen 650 mg Q6HP PRN PO 05/16/25 19:15 05/31/25 09:37 650 MG Empaglifozin 10 mg DAILY PO 05/21/25 10:00 06/05/25 07:42 10 MG Levofloxacin/ Dextrose 100 ml @ 100 mls/hr DAILY IV 05/26/25 10:00 06/05/25 07:41 100 MLS/HR Acetylcysteine 200 mg Q6HR NEB 05/29/25 00:00 06/05/25 11:47 200 MG Levalbuterol HCl 0.625 mg Q6HR NEB 05/29/25 00:00 06/05/25 11:47 0.625 MG Ipratropium [place] 0.5 mg Q6HR NEB 05/29/25 18:00 06/05/25 11:47 0.5 MG Enoxaparin Sodium 30 mg DAILY SC 05/31/25 10:00 06/05/25 07:43 30 MG Spironolactone 25 mg DAILY 06/03/25 10:00 06/05/25 07:41 25 MG Purified Water 200 ml Q12HR 06/02/25 22:00 06/05/25 07:20 200 ML Nystatin 5 ml QID SC 06/03/25 18:00 06/05/25 17:38 5 ML Carvedilol 3.125 mg Q12HR PO 06/04/25 22:00 06/05/25 07:42 3.125 MG Sacubitril/ Valsartan 0.5 tab BID PO 06/05/25 22:00 Examination Constitutional: Patient is alert and oriented and follows voice commands, currently on one way speaking valve Gen - no pallor, no icterus, no cyanosis, no clubbing, no LAD, no edema . Skin - Patients skin is warm and dry. HEENT - normocephalic, atraumatic, moist mucous membranes. Neck -right supraclavicular hematoma decreasing in size, no LAD, no JVD Pulmonary - B/L equal breath sounds with coarse rales more on the right lower side, no wheezing, no stridor. cardiovascular - regular S1,S2 heard, no added sounds, no murmurs heard. peripheral pulses normal radial 2+, pedal 2+. capillary refill normal <2 secs. GI - soft, nontender abdomen. Bowel sounds normoactive Neurological - Patient is A/O and is responding to voice commands. Bilateral upper extremity strength 4/5, bilateral lower extremity strength 4/5, no facial droop, nonverbal because of tracheostomy, no tremor, no sensory deficiets. laboratory and microbiology Laboratory Tests 06/05/25 06:22 Test 06/05/25 06:22 Range/Units Serum Glucose 195 H 74-106 mg/dL Microbiology Date/Time Source Procedure Growth Status 06/01/25 12:07 Trachea Gram Stain - Final Resulted 06/01/25 12:07 Trachea Respiratory Culture - Preliminary Resulted 05/20/25 12:10 Blood Blood Culture - Final NO GROWTH AFTER 5 DAYS OF INCUBATION. Complete 05/20/25 12:05 Pleural Fluid Gram Stain - Final Complete 05/20/25 12:05 Pleural Fluid Aerobic Culture - Final Complete 05/19/25 09:00 Stool Stool Culture - Final Complete 05/19/25 09:00 Stool Shiga Toxin I & II - Final Complete 05/16/25 10:50 Bronchial Washings Gram Stain - Final Complete 05/16/25 10:50 Respiratory Culture - Final Yeast, not Reena albicans Complete 05/12/25 12:44 Voided Urine Urine Culture - Final Complete Problem List/Assessment/Plan Problem List/Assessment/Plan Neurology acute metabolic encephalopathy likely due to hypercarbic respiratory failure, resolved - no sedation - patient is alert, interacting using a sign board and following voice commands Cardiovascular 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 Neck hematoma S/p CVC removal from right brachiocephalic/subclavian artery New onset atrial fibrillation/atrial flutter (2-1) with a RVR, resolved Possible sick sinus syndrome Hypertensive heart disease with systolic failure - echocardiogram showed LVEF 25% with severe LV and RV global hypokinesis - goal directed medical therapy with carvedilol, Jardiance, Entresto, spironolactone and Lasix - no arrhythmias noted - most recent CT angio neck showed hematoma of 10.5 X5.6 cm with no active arterial extravasation - chads Vasc 5, but anticoagulation held because of hematoma Respiratory Acute on chronic hypercapnic respiratory failure likely due to COPD exacerbation, resolved S/p mechanical ventilation Pneumonia likely due to Gram +/-bacteria/fungus Pleural effusion likely parapneumonic Mixed metabolic alkalosis with respiratory alkalosis S/p bronchoscopy S/p tracheostomy Status post thoracentesis X 2 Oral thrush - decrease the size of the tracheostomy on 06/02 to 7.5 mm - on one way speaking valve since 06/03 evening - levalbuterol, ipratropium and acetylcysteine q.12hours - on meropenam and fluconazole started on 06/05 - minimal secretions - repeat cultures showed growth of Gram-negative rods- Pseudomonas aeruginosa - consolidation in the right lower lobe seen on chest CT done on 06/04 Hem/onc Anemia, normochromic, normocytic Thrombocytopenia, resolved - Hemoglobin improving, continue monitoring - transfusion of 2 apheresis of platelets previously Endocrinology/gastroenterology DM type 2, hba1c 6.7 - ISS, moderate - Tube feedings - last bowel movement noted on 05/31 Renal Hyperkalemia, resolved BAO due to VMN resolved Hypernatremia mild, resolved - continue monitoring electrolytes and kidney function DVT prophylaxis: No anticoagulation as patient has high-risk of bleeding PUD prophylaxis: Protonix PICC line right upper arm 05/01/25 Tracheostomy 05/13 kenney's catheter changed on 05/19/25 Code status: full code Goals of care discussed with the patient's daughter and at bedside Critical care time spent excluding procedures: 53 minutes Plan discussed with Dr. Tenorio. Patient has oral thrush and was started on fluconazole. right lower consolidation, patient hypotensive and weak, continues to have thick secretions, was started on meropenam. as the patient is hypotensive, entresto decreased to 0.5 bid and communication order to hold if SBP < 110mmhg Plan discussed with: Spouse, Daughter, Other (DUDLEY Sena) My Orders My Orders Orders - ANSHUL DAY RESIDENT Procedure Category Date Status Time Sacubitril-Valsartan PHA 06/05/25 In Process (Entresto 24-26 Mg 22:00 Acetylcysteine PHA 06/05/25 Transmitted Inhalation 20% 22:00 Free Water PHA 06/05/25 Transmitted 22:00 Ipratropium Medneb PHA 06/05/25 Transmitted (Atrovent Medneb) 22:00 Levalbuterol Hcl PHA 06/05/25 Transmitted (Xopenex Medneb) 22:00 Complete Blood Count LAB 06/06/25 Verified 04:00 Comprehensive LAB 06/06/25 Verified Metabolic Panel 04:00 Fluconazole Ivpb PHA 06/05/25 Transmitted Diflucan 18:15 Fluconazole Ivpb PHA 06/06/25 Transmitted Diflucan 10:00 Communication Order ORDERS 06/05/25 Transmitted 18:06 Meropenem 1gm Ivpb X PHA 06/05/25 Transmitted ONE 18:15 Meropenem 1gm PHA 06/05/25 Transmitted Q8h(Gfr>50) 22:00 Chest Xray 1 View XY 06/06/25 Transmitted 04:00 Dietary Evaluation Review Comments: Nutrition Recommendation: 1. TF Vital AF 1.2 Luis Enrique @ 60 ml/hr. start @ 20ml/hr, increase 10ml/hr Q4H until goal is reached. TF at goal volume provides 100% energy & protein needs - 1728 kcal, 108 gm protein, 1168 ml free water 2. Water flush 140ml Q6H if allowed 3. TPN if NPO> 7 days Expected Outcomes/Goals: To meet >75% estimated needs Fu 2-3 days ANSHUL DAY RESIDENT Jun 05, 2025 18:27
[2025-06-05] MEDS: ACETYLCYSTEINE 20%(200MG/ML) SOL 4ML NEB SCH (19:51)
[2025-06-05] MEDS: IPRATROPIUM BROM 0.5 MG/2.5ML INH SOL NEB SCH (19:51)
[2025-06-05] MEDS: LEVALBUTEROL HCL 1.25 MG/3 ML NEB NEB SCH (19:52)
[2025-06-05] MEDS: MEROPENEM 1GM IVPB 50 ML IV ONE ×2 (20:18→20:30)
[2025-06-05] MEDS: FLUCONAZOLE 200MG/100ML 100 ML IV ONE (20:37)
[2025-06-05] MEDS: SACUBITRIL-VALSARTAN 24mg/26mg TAB PO SCH (22:12)
[2025-06-05] MEDS: FREE WATER NG SCH (22:26)
[2025-06-06] VITALS (29 sets, daily range): BP systolic 110–154; BP diastolic 44–66; PULSE 61–78; RESP 16–97; TEMP 97.8–99.2; O2SAT 88–99
[2025-06-06] MEDS: MEROPENEM 1GM IVPB 50 ML IV SCH (04:01)
[2025-06-06] MEDS: LEVALBUTEROL HCL 1.25 MG/3 ML NEB ONE (06:12)
[2025-06-06] MEDS: ACETYLCYSTEINE 20%(200MG/ML) SOL 4ML ONE ×2 (06:12)
[2025-06-06] MEDS: IPRATROPIUM BROM 0.5 MG/2.5ML INH SOL ONE (06:12)
[2025-06-06 07:20] LABS: Hematocrit 38.0 % (41.0-53.0); Hemoglobin 12.4 g/dL (13.5-17.5); Mean Corpuscular Hemoglobin 30.1 pg (28.0-32.0); Mean Corpuscular Volume 92.3 fL (80.0-100.0); Nucleated Red Blood Cells % 0.0 %
[2025-06-06 07:25] LABS: Alanine Aminotransferase 23 U/L (7-40); Albumin 3.7 g/dL (3.2-4.8); Alkaline Phosphatase 84 U/L (46-116); Anion Gap 7 (5-15); BUN/Creatinine Ratio 52.8 (10.0-20.0); Bilirubin, Total 0.5 mg/dL (0.2-1.0); Calcium 9.1 mg/dL (8.7-10.4); Chloride 106 mmol/L (98-107); Potassium 4.1 mmol/L (3.5-5.1); Total Protein 6.9 g/dL (5.7-8.2)
[2025-06-06 07:26] LABS: Blood Urea Nitrogen 38 mg/dL (9-23); Carbon Dioxide 36 mmol/L (20-31); Glucose 182 mg/dL (74-106); Sodium 149 mmol/L (136-145)
[2025-06-06] MEDS: FLUCONAZOLE 200MG/100ML 100 ML IV SCH (07:33)
--- NOTE | 2025-06-06 13:39 | DVH ---
XY CHEST XRAY 1 VIEW, HISTORY: right lower consolidation, worsening COMPARISON: CT CHEST WITHOUT CONTRAST on DOS: 06/04/25, XY CHEST XRAY 1 VIEW on DOS: 06/04/25, XY CHEST X RAY 1 VIEW on DOS: 06/03/25 CT CHEST WITHOUT CONTRAST on DOS: 06/04/25, XY CHEST XRAY 1 VIEW on DOS: 06/04/25, XY CHEST XRAY 1 VIEW o n DOS: 06/03/25 TECHNICAL DATA: 1 view of the chest was obtained. FINDINGS: Lines and tubes: None Cardiomediastinal silhouette: normal Pulmonary vasculature: normal Lung expansion: normal Lung airspace: Right basilar consolidation. Lung interstitium: normal Pleura: Trace right pleural effusion. Pneumothorax: no Bones: Unremarkable Other: no IMPRESSION: Right basilar consolidation. Trace right pleural effusion.
--- NOTE | 2025-06-06 13:43 | DVH ---
XY CHEST XRAY 1 VIEW, HISTORY: RIGHT LOWER CONSOLIDATION WORSENING COMPARISON: CT CHEST WITHOUT CONTRAST on DOS: 06/04/25, XY CHEST XRAY 1 VIEW on DOS: 06/04/25, XY CHEST X RAY 1 VIEW on DOS: 06/03/25 CT CHEST WITHOUT CONTRAST on DOS: 06/04/25, XY CHEST XRAY 1 VIEW on DOS: 06/04/25, XY CHEST XRAY 1 VIEW o n DOS: 06/03/25 TECHNICAL DATA: 1 view of the chest was obtained. FINDINGS: Lines and tubes: A tracheostomy is seen. NG seen. Right PICC noted. Cardiomediastinal silhouette: Stable Pulmonary vasculature: normal Lung expansion: normal Lung airspace: Similar right basilar consolidation. Lung interstitium: normal Pleura: normal Pneumothorax: no Bones: Unremarkable Other: no IMPRESSION: Similar right basilar consolidation.
--- NOTE | 2025-06-06 18:24 | DVHPN2 ---
Subjective Feeling better Reviewed: Care Plan, H&P, Labs, Medications, Previous Orders, Radiology, Other (Consultants) Changes from previous H/P or p: No Changes General: Per HPI Cardiovascular: Edema Objective Vitals Vital Signs Date Time Temp Pulse Resp B/P (MAP) Pulse Ox O2 Delivery O2 Flow Rate FiO2 06/06/25 17:30 66 06/06/25 17:30 97 98 Nasal Cannula* 3 32 06/06/25 17:00 154/58 (90) 06/06/25 12:00 97.8 97.8 Intake/Output Intake and Output 06/06/25 07:00 Intake Total 1883 ml Output Total 1250 ml Balance 633 ml Intake Oral 800 ml IV Total 211 ml Tube Feeding 872 ml Output Urine Total 1250 ml General Appearance: Alert, Oriented X3, Cooperative, No acute distress HEENT: Atraumatic Neck: Supple Lungs: Other (Few crackles bilateral lungs) Cardiovascular: Regular rate Abdomen: Normal bowel sounds, Soft Medications Current Medications Medications Dose Ordered Sig/Jose Alfredo Route Start Time Stop Time Status Last Admin Dose Admin Pantoprazole Sodium 40 mg DAILY IV 04/28/25 10:00 06/06/25 07:32 40 MG Sodium Chloride 10 ml QSHIFT@10,22 IV 05/01/25 10:00 06/06/25 07:33 10 ML Enteral Nutritional Formula 1,000 ml 60ML/HR GT 05/05/25 16:45 06/05/25 13:00 1,000 ML Dextrose 50 ml UD PRN IV 05/07/25 18:00 Vancomycin HCl 150 ml @ 100 mls/hr Q12H IV 05/14/25 21:00 UNV Alprazolam 0.25 mg Q8HP PRN NG 05/15/25 14:45 05/22/25 21:12 0.25 MG Acetaminophen 650 mg Q6HP PRN PO 05/16/25 19:15 06/06/25 16:20 650 MG Empaglifozin 10 mg DAILY PO 05/21/25 10:00 06/06/25 07:33 10 MG Enoxaparin Sodium 30 mg DAILY SC 05/31/25 10:00 06/06/25 07:34 30 MG Spironolactone 25 mg DAILY NG 06/03/25 10:00 06/06/25 07:33 25 MG Nystatin 5 ml QID MT 06/03/25 18:00 06/06/25 16:20 5 ML Carvedilol 3.125 mg Q12HR PO 06/04/25 22:00 06/06/25 07:33 3.125 MG Sacubitril/ Valsartan 0.5 tab BID PO 06/05/25 22:00 06/06/25 07:32 0.5 TAB Acetylcysteine 200 mg Q12HR NEB 06/05/25 22:00 06/06/25 11:12 200 MG Purified Water 200 ml Q8HR NG 06/05/25 22:00 06/06/25 10:26 200 ML Ipratropium [place] 0.5 mg Q12HR NEB 06/05/25 22:00 06/06/25 11:12 0.5 MG Levalbuterol HCl 0.625 mg Q12HR NEB 06/05/25 22:00 06/06/25 11:12 0.625 MG Fluconazole 100 ml @ 100 mls/hr DAILY IV 06/06/25 10:00 06/06/25 07:33 100 MLS/HR Meropenem 50 ml @ 17 mls/hr Q8H IV 06/06/25 04:00 06/06/25 10:17 17 MLS/HR Laboratory Results Laboratory Tests 06/06/25 06:25 Chemistry Test 06/06/25 06:25 Albumin 3.7 g/dL (3.2-4.8) Calcium Level 9.1 mg/dL (8.7-10.4) Total Protein 6.9 g/dL (5.7-8.2) LFT Test 06/06/25 06:25 Alanine Aminotransferase (ALT) 23 U/L (7-40) Alkaline Phosphatase 84 U/L (46-116) Aspartate Amino Transferase (AST) 30 U/L (13-40) Total Bilirubin 0.5 mg/dL (0.2-1.0) Urinalysis Test 05/19/25 15:00 Urine Color Colorless (Yellow) Urine Clarity Turbid (Clear) H Urine pH 6.0 (5.0-9.0) Urine Specific [place] 1.016 (1.001-1.035) Urine Protein 1+ (Negative) H Urine Ketones Negative (Negative) Urine Blood 3+ /uL (Negative) H Urine Nitrite Negative (Negative) Urine Bilirubin Negative (Negative) Urine Urobilinogen 2 mg/dL (Negative) H Urine Leukocyte Esterase 2+ /uL (Negative) Urine RBC 274 /hpf (0 - 3) Urine Microscopic WBC 16 /HPF (0-3) H Urine Squamous Epithelial Cells None seen /hpf (<5) Urine Bacteria None seen /hpf (None Seen) Urine Mucus Few (None Seen) Urine Glucose Normal mg/dL (Normal) Microbiology Microbiology Date/Time Source Procedure Growth Status 06/01/25 12:07 Trachea Gram Stain - Final Resulted 06/01/25 12:07 Trachea Respiratory Culture - Preliminary Resulted 05/20/25 12:10 Blood Blood Culture - Final NO GROWTH AFTER 5 DAYS OF INCUBATION. Complete 05/20/25 12:05 Pleural Fluid Gram Stain - Final Complete 05/20/25 12:05 Pleural Fluid Aerobic Culture - Final Complete 05/19/25 09:00 Stool Stool Culture - Final Complete 05/19/25 09:00 Stool Shiga Toxin I & II - Final Complete 05/16/25 10:50 Bronchial Washings Gram Stain - Final Complete 05/16/25 10:50 Respiratory Culture - Final Yeast, not Reena albicans Complete 05/12/25 12:44 Voided Urine Urine Culture - Final Complete Assessment/Plan Assessment/Plan Status post acute respiratory failure with intubation and extubation Nonischemic cardiomyopathy Right lower lobe pneumonia Hypotension Status post neck hematoma AFib /sick sinus syndrome Hypertensive heart disease Diabetes Leukocytosis Status post tracheostomy Plan: Repeat labs and x-ray. Antibiotics. Cultures. Further plan per orders Total critical care time 45 minutes Plan discussed with: Patient, Spouse, Daughter Date of Service: Jun 06, 2025 Billing Provider: OC ROWLAND MD Common Visit Codes: [id number] CARE 30-74 MIN OC ROWLAND MD Jun 06, 2025 18:24
[2025-06-07] VITALS (37 sets, daily range): BP systolic 87–140; BP diastolic 41–65; PULSE 60–72; RESP 16–26; TEMP 98.2–99.8; O2SAT 90–99
[2025-06-07] MEDS: MEROPENEM 1GM IVPB 50 ML IV ONE (03:51)
--- NOTE | 2025-06-07 04:07 | DVH ---
CHEST RADIOGRAPH Indication: fu Technique: Single frontal view of the chest was obtained COMPARISON: XY CHEST XRAY 1 VIEW on DOS: 06/06/25, XY CHEST XRAY 1 VIEW on DOS: 06/06/25, CT CHEST WITHOU T CONTRAST on DOS: 06/04/25, XY CHEST XRAY 1 VIEW on DOS: 06/04/25, XY CHEST XRAY 1 VIEW on DOS: 06/03/25 FINDINGS: Lines and Tubes: Unchanged. Lungs: Clear. Mild persistent right hemidiaphragmatic elevation. Pleura: No effusion. No pneumothorax. Cardiomediastinal contours: Unremarkable Bones: Unremarkable IMPRESSION: 1. No acute disease. 2. Lines and tubes unchanged.
[2025-06-07 04:43] LABS: Hematocrit 37.2 % (41.0-53.0); Hemoglobin 12.2 g/dL (13.5-17.5); Mean Corpuscular Hemoglobin 30.4 pg (28.0-32.0); Mean Corpuscular Volume 92.8 fL (80.0-100.0); Nucleated Red Blood Cells % 0.0 %
[2025-06-07 05:26] LABS: Alanine Aminotransferase 20 U/L (7-40); Albumin 3.6 g/dL (3.2-4.8); Alkaline Phosphatase 85 U/L (46-116); Anion Gap 9 (5-15); BUN/Creatinine Ratio 57.4 (10.0-20.0); Bilirubin, Total 0.5 mg/dL (0.2-1.0); Calcium 9.1 mg/dL (8.7-10.4); Chloride 106 mmol/L (98-107); Potassium 4.4 mmol/L (3.5-5.1); Total Protein 6.9 g/dL (5.7-8.2)
[2025-06-07 05:32] LABS: Blood Urea Nitrogen 35 mg/dL (9-23); Carbon Dioxide 34 mmol/L (20-31); Glucose 171 mg/dL (74-106); Sodium 149 mmol/L (136-145)
--- NOTE | 2025-06-07 17:02 | DVHPN2 ---
Subjective Feeling better Reviewed: Care Plan, H&P, Labs, Medications, Previous Orders, Radiology, Other (Consultants) Changes from previous H/P or p: No Changes General: Per HPI Cardiovascular: Edema Objective Vitals Vital Signs Date Time Temp Pulse Resp B/P (MAP) Pulse Ox O2 Delivery O2 Flow Rate FiO2 06/07/25 16:00 98.9 65 21 125/57 (79) 99 98.9 06/07/25 15:32 Nasal Cannula* 4 36 Intake/Output Intake and Output 06/07/25 07:00 Intake Total 1925 ml Output Total 1410 ml Balance 515 ml Intake Oral 800 ml IV Total 100 ml Tube Feeding 1025 ml Output Urine Total 1410 ml General Appearance: Alert, Oriented X3, Cooperative, No acute distress HEENT: Atraumatic Neck: Supple Lungs: Other (Few crackles bilateral lungs) Cardiovascular: Regular rate Abdomen: Normal bowel sounds, Soft Medications Current Medications Medications Dose Ordered Sig/Jose Alfredo Route Start Time Stop Time Status Last Admin Dose Admin Pantoprazole Sodium 40 mg DAILY IV 04/28/25 10:00 06/07/25 07:19 40 MG Sodium Chloride 10 ml QSHIFT@10,22 IV 05/01/25 10:00 06/07/25 07:19 10 ML Enteral Nutritional Formula 1,000 ml 60ML/HR GT 05/05/25 16:45 06/06/25 23:31 1,000 ML Dextrose 50 ml UD PRN IV 05/07/25 18:00 Vancomycin HCl 150 ml @ 100 mls/hr Q12H IV 05/14/25 21:00 UNV Alprazolam 0.25 mg Q8HP PRN NG 05/15/25 14:45 05/22/25 21:12 0.25 MG Acetaminophen 650 mg Q6HP PRN PO 05/16/25 19:15 06/06/25 16:20 650 MG Empaglifozin 10 mg DAILY PO 05/21/25 10:00 06/07/25 07:21 10 MG Enoxaparin Sodium 30 mg DAILY SC 05/31/25 10:00 06/07/25 07:19 30 MG Spironolactone 25 mg DAILY NG 06/03/25 10:00 06/07/25 07:20 25 MG Nystatin 5 ml QID MT 06/03/25 18:00 06/07/25 16:44 5 ML Carvedilol 3.125 mg Q12HR PO 06/04/25 22:00 06/07/25 07:20 3.125 MG Sacubitril/ Valsartan 0.5 tab BID PO 06/05/25 22:00 06/07/25 07:20 0.5 TAB Acetylcysteine 200 mg Q12HR NEB 06/05/25 22:00 06/07/25 10:18 200 MG Ipratropium [place] 0.5 mg Q12HR NEB 06/05/25 22:00 06/07/25 10:18 0.5 MG Levalbuterol HCl 0.625 mg Q12HR NEB 06/05/25 22:00 06/07/25 10:25 0.625 MG Fluconazole 100 ml @ 100 mls/hr DAILY IV 06/06/25 10:00 06/07/25 07:19 100 MLS/HR Meropenem 50 ml @ 17 mls/hr Q8H IV 06/06/25 04:00 06/07/25 10:52 17 MLS/HR Purified Water 400 ml Q6HR NG 06/07/25 22:00 Laboratory Results Laboratory Tests 06/07/25 04:15 Chemistry Test 06/07/25 04:15 Albumin 3.6 g/dL (3.2-4.8) Calcium Level 9.1 mg/dL (8.7-10.4) Total Protein 6.9 g/dL (5.7-8.2) Cardiac Markers Test 06/07/25 04:15 B-Type Natriuretic Peptide 80.29 pg/mL (0-100) LFT Test 06/07/25 04:15 Alanine Aminotransferase (ALT) 20 U/L (7-40) Alkaline Phosphatase 85 U/L (46-116) Aspartate Amino Transferase (AST) 28 U/L (13-40) Total Bilirubin 0.5 mg/dL (0.2-1.0) Urinalysis Test 05/19/25 15:00 Urine Color Colorless (Yellow) Urine Clarity Turbid (Clear) H Urine pH 6.0 (5.0-9.0) Urine Specific [place] 1.016 (1.001-1.035) Urine Protein 1+ (Negative) H Urine Ketones Negative (Negative) Urine Blood 3+ /uL (Negative) H Urine Nitrite Negative (Negative) Urine Bilirubin Negative (Negative) Urine Urobilinogen 2 mg/dL (Negative) H Urine Leukocyte Esterase 2+ /uL (Negative) Urine RBC 274 /hpf (0 - 3) Urine Microscopic WBC 16 /HPF (0-3) H Urine Squamous Epithelial Cells None seen /hpf (<5) Urine Bacteria None seen /hpf (None Seen) Urine Mucus Few (None Seen) Urine Glucose Normal mg/dL (Normal) Microbiology Microbiology Date/Time Source Procedure Growth Status 06/01/25 12:07 Trachea Gram Stain - Final Resulted 06/01/25 12:07 Trachea Respiratory Culture - Preliminary Resulted 05/20/25 12:10 Blood Blood Culture - Final NO GROWTH AFTER 5 DAYS OF INCUBATION. Complete 05/20/25 12:05 Pleural Fluid Gram Stain - Final Complete 05/20/25 12:05 Pleural Fluid Aerobic Culture - Final Complete 05/19/25 09:00 Stool Stool Culture - Final Complete 05/19/25 09:00 Stool Shiga Toxin I & II - Final Complete 05/16/25 10:50 Bronchial Washings Gram Stain - Final Complete 05/16/25 10:50 Respiratory Culture - Final Yeast, not Reena albicans Complete 05/12/25 12:44 Voided Urine Urine Culture - Final Complete Assessment/Plan Assessment/Plan Status post acute respiratory failure with intubation and extubation Nonischemic cardiomyopathy Right lower lobe pneumonia Hypotension Status post neck hematoma AFib /sick sinus syndrome Hypertensive heart disease Diabetes Leukocytosis Status post tracheostomy Hypernatremia Plan: Swallow evaluation. CBC went down to 10.2. More free water for the hypernatremia. Further plan per orders Plan discussed with: Patient, Spouse, Daughter, Other (Nursing) My Orders Orders - OC ROWLAND MD Procedure Category Date Status Time Chest Portable XY 06/07/25 Resulted 06:00 Free Water PHA 06/07/25 In Process 22:00 * Swallow Request ST 06/07/25 Transmitted 14:59 Date of Service: Jun 07, 2025 Billing Provider: OC ROWLAND MD Common Visit Codes: [id number] INP/OBS CARE(HIGH) OC ROWLAND MD Jun 07, 2025 17:02
[2025-06-07] MEDS: FREE WATER NG SCH (21:56)
[2025-06-08] VITALS (31 sets, daily range): BP systolic 86–143; BP diastolic 36–67; PULSE 59–80; RESP 9–25; TEMP 97.5–99.6; O2SAT 92–99
[2025-06-08] MEDS: ACETYLCYSTEINE 10 %(100MG/ML) SOL 4ML ONE (07:00)
[2025-06-08] MEDS: IPRATROPIUM BROM 0.5 MG/2.5ML INH SOL ONE ×2 (07:00→18:08)
[2025-06-08 07:53] LABS: Calcium 9.2 mg/dL (8.7-10.4); Chloride 103 mmol/L (98-107); Potassium 4.4 mmol/L (3.5-5.1)
[2025-06-08 07:54] LABS: Anion Gap 9 (5-15)
[2025-06-08 07:59] LABS: BUN/Creatinine Ratio 47.5 (10.0-20.0)
[2025-06-08 08:00] LABS: Blood Urea Nitrogen 29 mg/dL (9-23); Carbon Dioxide 34 mmol/L (20-31); Glucose 172 mg/dL (74-106); Sodium 146 mmol/L (136-145)
[2025-06-08 11:17] LABS: Hematocrit 37.1 % (41.0-53.0); Hemoglobin 11.9 g/dL (13.5-17.5); Mean Corpuscular Hemoglobin 30.0 pg (28.0-32.0); Mean Corpuscular Volume 93.7 fL (80.0-100.0); Nucleated Red Blood Cells % 0.1 %
[2025-06-08] MEDS: LEVALBUTEROL HCL 1.25 MG/3 ML NEB ONE (18:08)
--- NOTE | 2025-06-08 19:36 | DVHPNRES ---
Progress Note Date Seen: Jun 08, 2025 Resident Creating Document: GORDON DAYBRITTA RESIDENT Has the PT tested + for MRSA If YES, has PT been informed?: No Medical Necessity Reason Pt with a Central, PICC or Fol: Yes The following are medically ne: PICC Line, Kenney Catheter Reason for kenney catheter: Strict I&O Subjective Review of Systems 06/08 Patient seen and examined at the bedside. Patient is alert and oriented, talking with a [address] valve to tracheostomy without any respiratory distress. Over the weekend patient did not have any fevers, last night temperature was recorded at 99.8 F. blood pressure is better after the dose of Entresto was decreased and Lasix was discontinued. Patient has had about 6867-9276 ml urine output per day over the weekend. Chest x-ray showed right lower consolidation as seen on the chest CT on Sunday. Bedside swallow evaluation was done and patient was started on a pureed and nectar thick liquid diet. Objective vital signs Vital Sign Date Time Temp Pulse Resp B/P (MAP) Pulse Ox O2 Delivery O2 Flow Rate FiO2 06/08/25 18:00 62 06/08/25 18:00 21 98 Nasal Cannula* 3 32 06/08/25 18:00 128/63 (84) 06/08/25 16:00 99.6 99.6 Total Intake and Output 06/07/25 06/07/25 06/08/25 15:00 23:00 07:00 Intake Total 800 ml 1440 ml Output Total 750 ml 800 ml Balance 50 ml 640 ml medications Current Medications Medications Dose Ordered Sig/Jose Alfredo Route Start Time Stop Time Status Last Admin Dose Admin Pantoprazole Sodium 40 mg DAILY IV 04/28/25 10:00 06/08/25 11:35 40 MG Sodium Chloride 10 ml QSHIFT@10,22 IV 05/01/25 10:00 06/08/25 11:38 10 ML Dextrose 50 ml UD PRN IV 05/07/25 18:00 Vancomycin HCl 150 ml @ 100 mls/hr Q12H IV 05/14/25 21:00 UNV Alprazolam 0.25 mg Q8HP PRN NG 05/15/25 14:45 05/22/25 21:12 0.25 MG Acetaminophen 650 mg Q6HP PRN PO 05/16/25 19:15 06/06/25 16:20 650 MG Empaglifozin 10 mg DAILY PO 05/21/25 10:00 06/08/25 11:37 10 MG Enoxaparin Sodium 30 mg DAILY SC 05/31/25 10:00 06/08/25 11:36 30 MG Spironolactone 25 mg DAILY NG 06/03/25 10:00 06/08/25 11:37 25 MG Nystatin 5 ml QID MT 06/03/25 18:00 06/08/25 17:29 5 ML Carvedilol 3.125 mg Q12HR PO 06/04/25 22:00 06/08/25 11:37 3.125 MG Sacubitril/ Valsartan 0.5 tab BID PO 06/05/25 22:00 06/07/25 21:55 0.5 TAB Acetylcysteine 200 mg Q12HR [facility] 06/05/25 22:00 06/08/25 06:35 200 MG Ipratropium [place] 0.5 mg Q12HR [facility] 06/05/25 22:00 06/08/25 06:35 0.5 MG Levalbuterol HCl 0.625 mg Q12HR [facility] 06/05/25 22:00 06/08/25 06:34 0.625 MG Fluconazole 100 ml @ 100 mls/hr DAILY IV 06/06/25 10:00 06/08/25 11:07 100 MLS/HR Meropenem 50 ml @ 17 mls/hr Q8H IV 06/06/25 04:00 06/08/25 13:03 17 MLS/HR Purified Water 400 ml Q12HR 06/08/25 22:00 Examination Constitutional: Patient is alert and oriented, currently on one way speaking valve Gen - no pallor, no icterus, no cyanosis, no edema . Skin - Patients skin is warm and dry. HEENT - normocephalic, atraumatic, moist mucous membranes. Neck -right supraclavicular hematoma decreasing in size almost resolved, no LAD, no JVD Pulmonary - B/L equal breath sounds with coarse rales more on the right lower side, no wheezing, no stridor. cardiovascular - regular S1,S2 heard, no added sounds, no murmurs heard. peripheral pulses normal radial 2+, pedal 2+. capillary refill normal <2 secs. GI - soft, nontender abdomen. Bowel sounds normoactive Neurological - Patient is A/O X 4. Bilateral upper extremity strength 4/5, bilateral lower extremity strength 4/5, no facial droop, nonverbal because of tracheostomy, no tremor, no sensory deficiets. laboratory and microbiology Laboratory Tests 06/08/25 06:36 Test 06/08/25 06:36 Range/Units Serum Glucose 172 H 74-106 mg/dL Microbiology Date/Time Source Procedure Growth Status 06/01/25 12:07 Trachea Gram Stain - Final Resulted 06/01/25 12:07 Trachea Respiratory Culture - Preliminary Resulted 05/20/25 12:10 Blood Blood Culture - Final NO GROWTH AFTER 5 DAYS OF INCUBATION. Complete 05/20/25 12:05 Pleural Fluid Gram Stain - Final Complete 05/20/25 12:05 Pleural Fluid Aerobic Culture - Final Complete 05/19/25 09:00 Stool Stool Culture - Final Complete 05/19/25 09:00 Stool Shiga Toxin I & II - Final Complete 05/16/25 10:50 Bronchial Washings Gram Stain - Final Complete 05/16/25 10:50 Respiratory Culture - Final Yeast, not Reena albicans Complete 05/12/25 12:44 Voided Urine Urine Culture - Final Complete Problem List/Assessment/Plan Problem List/Assessment/Plan Neurology acute metabolic encephalopathy likely due to hypercarbic respiratory failure, resolved - no sedation - patient is alert and oriented and is communicating through [address] speaking valve Cardiovascular 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 Neck hematoma S/p CVC removal from right brachiocephalic/subclavian artery New onset atrial fibrillation/atrial flutter (2-1) with a RVR, resolved Possible sick sinus syndrome Hypertensive heart disease with systolic failure - echocardiogram showed LVEF 25% with severe LV and RV global hypokinesis - goal directed medical therapy with carvedilol, Jardiance, Entresto, spironolactone - no arrhythmias noted - most recent CT angio neck showed hematoma of 10.5 X5.6 cm with no active arterial extravasation - chads Vasc 5, but anticoagulation held because of hematoma Respiratory Acute on chronic hypercapnic respiratory failure likely due to COPD exacerbation, resolved S/p mechanical ventilation Pneumonia likely due to Gram +/-bacteria/fungus Pleural effusion likely parapneumonic Mixed metabolic alkalosis with respiratory alkalosis S/p bronchoscopy S/p tracheostomy Status post thoracentesis X 2 Oral thrush - decrease the size of the tracheostomy on 06/02 to 7.5 mm - on one way speaking valve since 06/03 evening - levalbuterol, ipratropium and acetylcysteine q.12hours - on meropenam and fluconazole started on 06/05 - minimal secretions - repeat cultures showed growth of Gram-negative rods- Pseudomonas aeruginosa - consolidation in the right lower lobe seen on chest CT done on 06/04 Hem/onc Anemia, normochromic, normocytic Thrombocytopenia, resolved - Hemoglobin improving, continue monitoring - transfusion of 2 apheresis of platelets previously Endocrinology/gastroenterology DM type 2, hba1c 6.7 - ISS, moderate - Tube feedings - last bowel movement noted on 05/31 Renal Hyperkalemia, resolved BAO due to VMN resolved Hypernatremia mild, - continue monitoring electrolytes and kidney function - free water DVT prophylaxis: No anticoagulation as patient has high-risk of bleeding PUD prophylaxis: Protonix PICC line right upper arm 05/01/25 Tracheostomy 05/13 kenney's catheter changed on 05/19/25 Code status: full code Goals of care discussed with the patient's daughter and at bedside Critical care time spent excluding procedures: 48 minutes Plan discussed with Dr. Corrales Plan discussed with: Patient, Spouse, Daughter, Other (RN Aman) My Orders My Orders Orders - ANSHUL DAY Procedure Category Date Status Time Free Water PHA 06/08/25 In Process 22:00 Dietary Evaluation Review Comments: Nutrition Recommendation: 1. TF Vital AF 1.2 Luis Enrique @ 60 ml/hr. start @ 20ml/hr, increase 10ml/hr Q4H until goal is reached. TF at goal volume provides 100% energy & protein needs - 1728 kcal, 108 gm protein, 1168 ml free water 2. Water flush 140ml Q6H if allowed 3. TPN if NPO> 7 days Expected Outcomes/Goals: To meet >75% estimated needs Fu 2-3 days Date of Service: Jun 08, 2025 Billing Provider: PAMELA CORRALES MD Common Visit Codes: [id number] CARE 30-74 MIN ANSHUL DAY Jun 08, 2025 19:36 PAMELA CORRALES MD Jun 09, 2025 16:01
[2025-06-08] MEDS: FREE WATER NG SCH (22:00)
[2025-06-09] VITALS (59 sets, daily range): BP systolic 97–137; BP diastolic 52–67; PULSE 56–75; RESP 11–25; TEMP 97.7–98.4; O2SAT 90–99
--- NOTE | 2025-06-09 05:24 | DVH ---
CHEST RADIOGRAPH Indication: sob Technique: Single frontal view of the chest was obtained COMPARISON: XY CHEST PORTABLE on DOS: 06/07/25, XY CHEST XRAY 1 VIEW on DOS: 06/06/25, XY CHEST XRAY 1 V IEW on DOS: 06/06/25, CT CHEST WITHOUT CONTRAST on DOS: 06/04/25, XY CHEST XRAY 1 VIEW on DOS: 06/04/25, XY CHEST PORTABLE on DOS: 06/07/25 FINDINGS: Lines and Tubes: Tracheostomy, enteric catheter and right PICC in satisfactory position Lungs: Clear. Mild persistent right hemidiaphragmatic elevation. Pleura: No effusion. No pneumothorax. Cardiomediastinal contours: Unremarkable Bones: Unremarkable IMPRESSION: No acute disease. Lines and tubes unchanged.
[2025-06-09 06:29] LABS: Hematocrit 36.8 % (41.0-53.0); Hemoglobin 12.0 g/dL (13.5-17.5); Mean Corpuscular Hemoglobin 30.4 pg (28.0-32.0); Mean Corpuscular Volume 93.0 fL (80.0-100.0); Nucleated Red Blood Cells % 0.0 %
[2025-06-09 06:48] LABS: Anion Gap 9 (5-15); Calcium 9.0 mg/dL (8.7-10.4); Chloride 101 mmol/L (98-107); Potassium 4.4 mmol/L (3.5-5.1); Sodium 143 mmol/L (136-145)
[2025-06-09] MEDS: IPRATROPIUM BROM 0.5 MG/2.5ML INH SOL ONE (06:50)
[2025-06-09 06:54] LABS: BUN/Creatinine Ratio 52.7 (10.0-20.0); Blood Urea Nitrogen 29 mg/dL (9-23); Carbon Dioxide 33 mmol/L (20-31); Glucose 115 mg/dL (74-106); Magnesium 2.1 mg/dL (1.6-2.6)
--- NOTE | 2025-06-09 18:15 | DVHPNRES ---
Progress Note Date Seen: Jun 09, 2025 Resident Creating Document: GORDON DAYBRITTA RESIDENT Has the PT tested + for MRSA If YES, has PT been informed?: No Medical Necessity Reason Pt with a Central, PICC or Fol: Yes The following are medically ne: PICC Line, Kenney Catheter Reason for kenney catheter: Strict I&O Subjective Review of Systems 06/08 Patient seen and examined at the bedside. Patient is alert and oriented, talking with a [address] valve to tracheostomy without any respiratory distress, tracheostomy was capped and no respiratory distress noted. No fevers overnight. Patient has had about 1300 ml urine output over the last 24 hours. Patient is swallowing pureed and nectar thick liquids. NG tube discontinued. Bladder training to be done with the clamping of the Kenney's catheter Objective vital signs Vital Sign Date Time Temp Pulse Resp B/P (MAP) Pulse Ox O2 Delivery O2 Flow Rate FiO2 06/09/25 17:30 62 21 96 06/09/25 16:00 Nasal Cannula* 4 36 06/09/25 12:00 98.3 98.3 Total Intake and Output 06/08/25 06/08/25 06/09/25 15:00 23:00 07:00 Intake Total 134 ml 737 ml 450 ml Output Total 775 ml 500 ml Balance 134 ml -38 ml -50 ml medications Current Medications Medications Dose Ordered Sig/Jose Alfredo Route Start Time Stop Time Status Last Admin Dose Admin Pantoprazole Sodium 40 mg DAILY IV 04/28/25 10:00 06/09/25 11:17 40 MG Sodium Chloride 10 ml QSHIFT@10,22 IV 05/01/25 10:00 06/09/25 10:00 10 ML Dextrose 50 ml UD PRN IV 05/07/25 18:00 Vancomycin HCl 150 ml @ 100 mls/hr Q12H IV 05/14/25 21:00 UNV Alprazolam 0.25 mg Q8HP PRN NG 05/15/25 14:45 05/22/25 21:12 0.25 MG Acetaminophen 650 mg Q6HP PRN PO 05/16/25 19:15 06/06/25 16:20 650 MG Empaglifozin 10 mg DAILY PO 05/21/25 10:00 06/09/25 11:54 10 MG Enoxaparin Sodium 30 mg DAILY SC 05/31/25 10:00 06/09/25 11:18 30 MG Spironolactone 25 mg DAILY NG 06/03/25 10:00 06/09/25 11:54 25 MG Nystatin 5 ml QID MT 06/03/25 18:00 06/09/25 17:38 5 ML Carvedilol 3.125 mg Q12HR PO 06/04/25 22:00 06/08/25 11:37 3.125 MG Sacubitril/ Valsartan 0.5 tab BID PO 06/05/25 22:00 06/09/25 11:54 0.5 TAB Acetylcysteine 200 mg Q12HR NEB 06/05/25 22:00 06/09/25 07:06 200 MG Ipratropium [place] 0.5 mg Q12HR NEB 06/05/25 22:00 06/09/25 07:06 0.5 MG Levalbuterol HCl 0.625 mg Q12HR [facility]B 06/05/25 22:00 06/09/25 07:07 0.625 MG Fluconazole 100 ml @ 100 mls/hr DAILY IV 06/06/25 10:00 06/09/25 11:16 100 MLS/HR Meropenem 50 ml @ 17 mls/hr Q8H IV 06/06/25 04:00 06/09/25 13:27 17 MLS/HR Examination Constitutional: Patient is alert and oriented, currently on one way speaking valve, clamped, no respiratory distress noted Gen - no pallor, no icterus, no cyanosis, no edema . Skin - Patients skin is warm and dry. HEENT - normocephalic, atraumatic, moist mucous membranes. Neck -right supraclavicular hematoma decreasing in size almost resolved, no LAD, no JVD Pulmonary - B/L equal breath sounds in the mid to upper zones. Right lower zone decreased breath sounds, bilateral rhonchi, no wheezing, no stridor. cardiovascular - regular S1,S2 heard, no added sounds, no murmurs heard. peripheral pulses normal radial 2+, pedal 2+. capillary refill normal <2 secs. GI - soft, nontender abdomen. Bowel sounds normoactive Neurological - Patient is A/O X 4. Bilateral upper extremity strength 4/5, bilateral lower extremity strength 4/5, no facial droop, nonverbal because of tracheostomy, no tremor, no sensory deficiets. laboratory and microbiology Laboratory Tests 06/09/25 05:24 Test 06/09/25 05:24 Range/Units Serum Glucose 115 H 74-106 mg/dL Microbiology Date/Time Source Procedure Growth Status 06/01/25 12:07 Trachea Gram Stain - Final Resulted 06/01/25 12:07 Trachea Respiratory Culture - Preliminary Resulted 05/20/25 12:10 Blood Blood Culture - Final NO GROWTH AFTER 5 DAYS OF INCUBATION. Complete 05/20/25 12:05 Pleural Fluid Gram Stain - Final Complete 05/20/25 12:05 Pleural Fluid Aerobic Culture - Final Complete 05/19/25 09:00 Stool Stool Culture - Final Complete 05/19/25 09:00 Stool Shiga Toxin I & II - Final Complete 05/16/25 10:50 Bronchial Washings Gram Stain - Final Complete 05/16/25 10:50 Respiratory Culture - Final Yeast, not Reena albicans Complete 05/12/25 12:44 Voided Urine Urine Culture - Final Complete Problem List/Assessment/Plan Problem List/Assessment/Plan Neurology acute metabolic encephalopathy likely due to hypercarbic respiratory failure, resolved - no sedation - patient is alert and oriented and is communicating through 1 way speaking valve Cardiovascular 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 Neck hematoma S/p CVC removal from right brachiocephalic/subclavian artery New onset atrial fibrillation/atrial flutter (2-1) with a RVR, resolved Possible sick sinus syndrome Hypertensive heart disease with systolic failure - echocardiogram showed LVEF 25% with severe LV and RV global hypokinesis - goal directed medical therapy with carvedilol, Jardiance, Entresto, spironolactone - no arrhythmias noted - most recent CT angio neck showed hematoma of 10.5 X5.6 cm with no active arterial extravasation - chads Vasc 5, but anticoagulation held because of hematoma Respiratory Acute on chronic hypercapnic respiratory failure likely due to COPD exacerbation, resolved S/p mechanical ventilation Pneumonia likely due to Gram +/-bacteria/fungus Pleural effusion likely parapneumonic Mixed metabolic alkalosis with respiratory alkalosis S/p bronchoscopy S/p tracheostomy Status post thoracentesis X 2 Oral thrush - decrease the size of the tracheostomy on 06/02 to 7.5 mm - on one way speaking valve since 06/03 evening - levalbuterol, ipratropium and acetylcysteine q.12hours - on meropenam and fluconazole started on 06/05 - minimal secretions - repeat cultures showed growth of Gram-negative rods- Pseudomonas aeruginosa - consolidation in the right lower lobe seen on chest CT done on 06/04 Hem/onc Anemia, normochromic, normocytic Thrombocytopenia, resolved - Hemoglobin improving, continue monitoring - transfusion of 2 apheresis of platelets previously Endocrinology/gastroenterology DM type 2, hba1c 6.7 - ISS, moderate - Tube feedings - last bowel movement noted on 05/31 Renal Hyperkalemia, resolved BAO due to VMN resolved Hypernatremia mild, - continue monitoring electrolytes and kidney function - free water DVT prophylaxis: No anticoagulation as patient has high-risk of bleeding PUD prophylaxis: Protonix PICC line right upper arm 05/01/25 Tracheostomy 05/13 kenney's catheter changed on 05/19/25 Code status: full code Goals of care discussed with the patient's daughter at bedside Critical care time spent excluding procedures: 47 minutes Plan discussed with Dr. Corrales Plan discussed with: Daughter, Other (RN Kailee) My Orders My Orders Orders - ANSHUL DAY Procedure Category Date Status Time Chest Xray 1 View XY 06/09/25 Resulted 04:00 Dietary Evaluation Review Comments: Nutrition Recommendation: 1. TF Vital AF 1.2 Luis Enrique @ 60 ml/hr. start @ 20ml/hr, increase 10ml/hr Q4H until goal is reached. TF at goal volume provides 100% energy & protein needs - 1728 kcal, 108 gm protein, 1168 ml free water 2. Water flush 140ml Q6H if allowed 3. TPN if NPO> 7 days Expected Outcomes/Goals: To meet >75% estimated needs Fu 2-3 days Date of Service: Jun 09, 2025 Billing Provider: PAMELA CORRALES MD Common Visit Codes: [id number] CARE 30-74 MIN ANSHUL DAY Jun 09, 2025 18:15 PAMELA CORRALES MD Jun 10, 2025 16:19
[2025-06-10] VITALS (31 sets, daily range): BP systolic 96–134; BP diastolic 44–65; PULSE 57–82; RESP 12–24; TEMP 97.4–98.2; O2SAT 93–99
[2025-06-10 05:42] LABS: Hematocrit 36.9 % (41.0-53.0); Hemoglobin 12.2 g/dL (13.5-17.5); Mean Corpuscular Hemoglobin 30.4 pg (28.0-32.0); Mean Corpuscular Volume 92.2 fL (80.0-100.0); Nucleated Red Blood Cells % 0.1 %
[2025-06-10 05:50] LABS: Chloride 98 mmol/L (98-107); Potassium 4.4 mmol/L (3.5-5.1); Sodium 137 mmol/L (136-145)
[2025-06-10 05:51] LABS: Anion Gap 6 (5-15)
[2025-06-10 05:52] LABS: Calcium 8.9 mg/dL (8.7-10.4)
[2025-06-10 05:55] LABS: Carbon Dioxide 33 mmol/L (20-31)
[2025-06-10 05:57] LABS: BUN/Creatinine Ratio 43.5 (10.0-20.0)
[2025-06-10 06:00] LABS: Blood Urea Nitrogen 27 mg/dL (9-23); Glucose 124 mg/dL (74-106)
[2025-06-10] MEDS: PANTOPRAZOLE 40 MG TAB PO ONE (10:11)
--- NOTE | 2025-06-10 14:03 | DVHPNRES ---
Progress Note Date Seen: Jun 10, 2025 Resident Creating Document: AAMIR DAYAREHTA RESIDENT Has the PT tested + for MRSA If YES, has PT been informed?: No Medical Necessity Reason Pt with a Central, PICC or Fol: Yes The following are medically ne: PICC Line, Kenney Catheter Reason for kenney catheter: Strict I&O Subjective Review of Systems 06/10 Patient seen and examined at the bedside. Patient is alert and oriented,no respiratory distress since the tracheostomy has been capped. No fevers overnight. Patient has had about 1.2L ml urine output over the last 24 hours. Patient is swallowing pureed and nectar thick liquids. NG tube discontinued. Bladder training to be done with the clamping of the Kenney's catheter. no acute complaints . denied any pain. tracheostomy cannula removed today. No respiratory distress noted Objective vital signs Vital Sign Date Time Temp Pulse Resp B/P (MAP) Pulse Ox O2 Delivery O2 Flow Rate FiO2 06/10/25 13:00 69 22 127/55 (79) 96 06/10/25 12:00 98.2 98.2 06/10/25 10:00 Nasal Cannula* 2 28 Total Intake and Output 06/09/25 06/09/25 06/10/25 15:00 23:00 07:00 Intake Total 75 ml 201 ml 134 ml Output Total 675 ml 500 ml Balance 75 ml -474 ml -366 ml medications Current Medications Medications Dose Ordered Sig/Jose Alfredo Route Start Time Stop Time Status Last Admin Dose Admin Sodium Chloride 10 ml QSHIFT@10,22 IV 05/01/25 10:00 06/10/25 10:11 10 ML Dextrose 50 ml UD PRN IV 05/07/25 18:00 Vancomycin HCl 150 ml @ 100 mls/hr Q12H IV 05/14/25 21:00 UNV Acetaminophen 650 mg Q6HP PRN PO 05/16/25 19:15 06/06/25 16:20 650 MG Empaglifozin 10 mg DAILY PO 05/21/25 10:00 06/10/25 10:11 10 MG Enoxaparin Sodium 30 mg DAILY SC 05/31/25 10:00 06/10/25 10:11 30 MG Spironolactone 25 mg DAILY NG 06/03/25 10:00 06/10/25 10:11 25 MG Nystatin 5 ml QID MT 06/03/25 18:00 06/10/25 12:38 5 ML Carvedilol 3.125 mg Q12HR PO 06/04/25 22:00 06/09/25 21:12 3.125 MG Sacubitril/ Valsartan 0.5 tab BID PO 06/05/25 22:00 06/09/25 21:14 0.5 TAB Acetylcysteine 200 mg Q12HR NEB 06/05/25 22:00 06/10/25 07:11 200 MG Ipratropium [place] 0.5 mg Q12HR NEB 06/05/25 22:00 06/10/25 07:10 0.5 MG Levalbuterol HCl 0.625 mg Q12HR NEB 06/05/25 22:00 06/10/25 07:10 0.625 MG Fluconazole 100 ml @ 100 mls/hr DAILY IV 06/06/25 10:00 06/10/25 10:10 100 MLS/HR Meropenem 50 ml @ 17 mls/hr Q8H IV 06/06/25 04:00 06/10/25 12:38 17 MLS/HR Pantoprazole Sodium 40 mg DAILY@0600 PO 06/11/25 06:00 Examination Constitutional: Patient is alert and oriented, currently on one way speaking valve, clamped, no respiratory distress noted Gen - no pallor, no icterus, no cyanosis, no edema . Skin - Patients skin is warm and dry. HEENT - normocephalic, atraumatic, moist mucous membranes. Neck -right supraclavicular hematoma decreasing in size almost resolved, no LAD, no JVD Pulmonary - B/L equal breath sounds in the mid to upper zones. Right lower zone decreased breath sounds, bilateral rhonchi, no wheezing, no stridor. cardiovascular - regular S1,S2 heard, no added sounds, no murmurs heard. peripheral pulses normal radial 2+, pedal 2+. capillary refill normal <2 secs. GI - soft, nontender abdomen. Bowel sounds normoactive Neurological - Patient is A/O X 4. Bilateral upper extremity strength 4/5, bilateral lower extremity strength 4/5, no facial droop, nonverbal because of tracheostomy, no tremor, no sensory deficiets. laboratory and microbiology Laboratory Tests 06/10/25 05:05 Test 06/10/25 05:05 Range/Units Serum Glucose 124 H 74-106 mg/dL Microbiology Date/Time Source Procedure Growth Status 06/01/25 12:07 Trachea Gram Stain - Final Complete 06/01/25 12:07 Respiratory Culture - Final Pseudomonas aeruginosa Complete 05/20/25 12:10 Blood Blood Culture - Final NO GROWTH AFTER 5 DAYS OF INCUBATION. Complete 05/20/25 12:05 Pleural Fluid Gram Stain - Final Complete 05/20/25 12:05 Pleural Fluid Aerobic Culture - Final Complete 05/19/25 09:00 Stool Stool Culture - Final Complete 05/19/25 09:00 Stool Shiga Toxin I & II - Final Complete 05/16/25 10:50 Bronchial Washings Gram Stain - Final Complete 05/16/25 10:50 Respiratory Culture - Final Yeast, not Reena albicans Complete 05/12/25 12:44 Voided Urine Urine Culture - Final Complete Problem List/Assessment/Plan Problem List/Assessment/Plan Neurology acute metabolic encephalopathy likely due to hypercarbic respiratory failure, resolved - patient is alert and oriented Cardiovascular 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 Neck hematoma S/p CVC removal from right brachiocephalic/subclavian artery New onset atrial fibrillation/atrial flutter (2-1) with a RVR, resolved Possible sick sinus syndrome Hypertensive heart disease with systolic failure - echocardiogram showed LVEF 25% with severe LV and RV global hypokinesis - goal directed medical therapy with carvedilol, Jardiance, Entresto, spironolactone - no arrhythmias noted - most recent CT angio neck showed hematoma of 10.5 X5.6 cm with no active arterial extravasation - chads Vasc 5, but anticoagulation held because of hematoma Respiratory Acute on chronic hypercapnic respiratory failure likely due to COPD exacerbation, resolved S/p mechanical ventilation Pneumonia likely due to Gram +/-bacteria/fungus Pleural effusion likely parapneumonic Mixed metabolic alkalosis with respiratory alkalosis S/p bronchoscopy S/p tracheostomy Status post thoracentesis X 2 Oral thrush - decrease the size of the tracheostomy on 06/02 to 7.5 mm - on one way speaking valve since 06/03 evening - levalbuterol, ipratropium and acetylcysteine q.12hours - on meropenam and fluconazole started on 06/05 - minimal secretions - repeat cultures showed growth of Gram-negative rods- Pseudomonas aeruginosa - consolidation in the right lower lobe seen on chest CT done on 06/04 Hem/onc Anemia, normochromic, normocytic Thrombocytopenia, resolved - Hemoglobin improving, continue monitoring Endocrinology/gastroenterology DM type 2, hba1c 6.7 - ISS, moderate Renal Hyperkalemia, resolved BAO due to VMN resolved Hypernatremia, resolved - continue monitoring electrolytes and kidney function DVT prophylaxis: No anticoagulation as patient has high-risk of bleeding PUD prophylaxis: Protonix PICC line right upper arm 05/01/25 Tracheostomy 05/13 tracheostomy removed 06/10 kenney's catheter changed on 05/19/25 Code status: full code Goals of care discussed with the patient's daughter at bedside. Patient's tracheostomy cannula was removed, no respiratory distress noted after that. bladder training to be done. Critical care time spent excluding procedures: 49 minutes Plan discussed with Dr. Corrales Plan discussed with: Patient, Daughter, Other (DUDLEY Hood) My Orders My Orders Orders - ANSHUL DAY RESIDENT Procedure Category Date Status Time Pantoprazole Tablet PHA 06/11/25 In Process (Protonix Tablet) 06:00 Communication Order ORDERS 06/10/25 Transmitted 09:11 Dietary Evaluation Review Comments: Nutrition Recommendation: 1. TF Vital AF 1.2 Luis Enrique @ 60 ml/hr. start @ 20ml/hr, increase 10ml/hr Q4H until goal is reached. TF at goal volume provides 100% energy & protein needs - 1728 kcal, 108 gm protein, 1168 ml free water 2. Water flush 140ml Q6H if allowed 3. TPN if NPO> 7 days Expected Outcomes/Goals: To meet >75% estimated needs Fu 2-3 days Date of Service: Jun 10, 2025 Billing Provider: PAMELA CORRALES MD Common Visit Codes: [id number] INP/OBS CARE(HIGH) ANSHUL DAY RESIDENT Jun 10, 2025 14:03 PAMELA CORRALES MD Jun 11, 2025 12:06
--- NOTE | 2025-06-10 17:28 | MEDREC ---
[facility] Intervention Section I [facility] Intervention: Review courses of therapy (TRACHEA CULTURES FINALIZED WITH PSEUDOMONAS AERUGINOSA WITH SUSCEPTIBILITIES INDICATING MEROPENEM INTERMEDIATE. PLEASE CONSIDER SWITCHING TO EITHER [facility] OR [facility] FOR OPTIMAL COVERAGE.) [facility] RESIDENT Jun 10, 2025 17:28
[2025-06-10] MEDS: SACUBITRIL-VALSARTAN 24mg/26mg TAB PO SCH (22:00)
[2025-06-10] MEDS: CEFEPIME 1GM/ 50ML 50 ML IV SCH (22:00)
[2025-06-11] VITALS (33 sets, daily range): BP systolic 95–136; BP diastolic 48–78; PULSE 63–82; RESP 11–26; TEMP 97.7–98.8; O2SAT 90–100
[2025-06-11] MEDS: LEVALBUTEROL HCL 1.25 MG/3 ML NEB ONE (05:36)
[2025-06-11] MEDS: ACETYLCYSTEINE 20%(200MG/ML) SOL 4ML ONE (05:36)
[2025-06-11] MEDS: IPRATROPIUM BROM 0.5 MG/2.5ML INH SOL ONE (05:36)
--- NOTE | 2025-06-11 05:39 | DVH ---
CHEST RADIOGRAPH Indication: post trach removal Technique: Single frontal view of the chest was obtained COMPARISON: XY CHEST XRAY 1 VIEW on DOS: 06/09/25, XY CHEST PORTABLE on DOS: 06/07/25, XY CHEST XRAY 1 VIEW on DOS: 06/06/25, XY CHEST XRAY 1 VIEW on DOS: 06/06/25, CT CHEST WITHOUT CONTRAST on DOS: 06/04/25 FINDINGS: Lines and Tubes: Status post interval removal fall off tracheostomy and enteric catheter. Right mae pherally inserted central catheter unchanged. Lungs: Clear. Mild persistent right hemidiaphragmatic elevation. Pleura: No effusion. No pneumothorax. Cardiomediastinal contours: Unremarkable Bones: Unremarkable IMPRESSION: 1. No acute disease. Mild persistent right hemidiaphragmatic elevation. 2. Right PICC status post interval removal of tracheostomy and enteric catheter.
[2025-06-11] MEDS: PANTOPRAZOLE 40 MG TAB PO SCH (05:55)
[2025-06-11 06:25] LABS: Hematocrit 37.2 % (41.0-53.0); Hemoglobin 12.2 g/dL (13.5-17.5); Mean Corpuscular Hemoglobin 30.0 pg (28.0-32.0); Mean Corpuscular Volume 91.3 fL (80.0-100.0); Nucleated Red Blood Cells % 0.2 %
[2025-06-11 06:36] LABS: Anion Gap 7 (5-15); Potassium 5.0 mmol/L (3.5-5.1)
[2025-06-11 06:42] LABS: BUN/Creatinine Ratio 38.7 (10.0-20.0)
[2025-06-11 06:43] LABS: Blood Urea Nitrogen 24 mg/dL (9-23); Calcium 8.6 mg/dL (8.7-10.4); Carbon Dioxide 32 mmol/L (20-31); Chloride 97 mmol/L (98-107); Glucose 115 mg/dL (74-106); Sodium 136 mmol/L (136-145)
[2025-06-11 12:40] LABS: Base Excess 3.6 mmol/L (-2.0-3.0)
[2025-06-11] MEDS: TAMSULOSIN HYDROCHLORIDE 0.4 MG CAP PO ONE (14:04)
[2025-06-11] MEDS: TAMSULOSIN HYDROCHLORIDE 0.4 MG CAP PO SCH (14:26)
--- NOTE | 2025-06-11 17:54 | DVHPNRES ---
Progress Note Date Seen: Jun 11, 2025 Resident Creating Document: JHSusanJAAMIR AyersARETHA RESIDENT Has the PT tested + for MRSA If YES, has PT been informed?: No Medical Necessity Reason Pt with a Central, PICC or Fol: Yes The following are medically ne: PICC Line, Kenney Catheter Reason for kenney catheter: Strict I&O Subjective Review of Systems 06/11 Patient seen and examined at the bedside. Patient is alert and oriented,no respiratory distress overnight since the tracheostomy was decannulated. No fevers overnight. Patient denies any abdominal pain. Had 1 bowel movement yesterday. Denied any pain on swallowing, no difficulty swallowing Kenney's catheter removed today Objective vital signs Vital Sign Date Time Temp Pulse Resp B/P (MAP) Pulse Ox O2 Delivery O2 Flow Rate FiO2 06/11/25 17:00 65 25 112/50 (70) 94 06/11/25 16:00 Nasal Cannula* 2 28 06/11/25 12:00 98.6 98.6 Total Intake and Output 06/10/25 06/10/25 06/11/25 15:00 23:00 07:00 Intake Total 500 ml 240 ml Output Total 625 ml 900 ml Balance -125 ml -660 ml medications Current Medications Medications Dose Ordered Sig/Jose Alfredo Route Start Time Stop Time Status Last Admin Dose Admin Sodium Chloride 10 ml QSHIFT@10,22 IV 05/01/25 10:00 06/11/25 09:36 10 ML Dextrose 50 ml UD PRN IV 05/07/25 18:00 Vancomycin HCl 150 ml @ 100 mls/hr Q12H IV 05/14/25 21:00 UNV Acetaminophen 650 mg Q6HP PRN PO 05/16/25 19:15 06/06/25 16:20 650 MG Empaglifozin 10 mg DAILY PO 05/21/25 10:00 06/11/25 09:34 10 MG Enoxaparin Sodium 30 mg DAILY SC 05/31/25 10:00 06/11/25 09:35 30 MG Spironolactone 25 mg DAILY NG 06/03/25 10:00 06/11/25 09:35 25 MG Nystatin 5 ml QID MT 06/03/25 18:00 06/11/25 13:00 5 ML Carvedilol 3.125 mg Q12HR PO 06/04/25 22:00 06/11/25 09:35 3.125 MG Ipratropium [place] 0.5 mg Q12HR NEB 06/05/25 22:00 06/11/25 05:34 0.5 MG Levalbuterol HCl 0.625 mg Q12HR NEB 06/05/25 22:00 06/11/25 05:34 0.625 MG Pantoprazole Sodium 40 mg DAILY@0600 PO 06/11/25 06:00 06/11/25 05:55 40 MG Sacubitril/ Valsartan 0.5 tab BID PO 06/10/25 22:00 06/11/25 09:35 0.5 TAB Tamsulosin HCl 0.4 mg QPM PO 06/11/25 18:00 Examination Constitutional: Patient is alert and oriented X 4. No respiratory distress noted Gen - no pallor, no icterus, no cyanosis, no edema . Skin - Patients skin is warm and dry. HEENT - normocephalic, atraumatic, moist mucous membranes. Neck -right supraclavicular hematoma not visible on the outside, no LAD, no JVD Pulmonary - B/L coarse breath sounds with coarse rhonchi.no wheezing, no stridor. cardiovascular - regular S1,S2 heard, no added sounds, no murmurs heard. peripheral pulses normal radial 2+, pedal 2+. capillary refill normal <2 secs. GI - soft, nontender abdomen. Bowel sounds normoactive Neurological - Patient is A/O X 4. Bilateral upper extremity strength 4/5, bilateral lower extremity strength 4/5, no facial droop, nonverbal because of tracheostomy, no tremor, no sensory deficiets. laboratory and microbiology Laboratory Tests 06/11/25 05:42 Test 06/11/25 05:42 Range/Units Serum Glucose 115 H 74-106 mg/dL Microbiology Date/Time Source Procedure Growth Status 06/01/25 12:07 Trachea Gram Stain - Final Complete 06/01/25 12:07 Respiratory Culture - Final Pseudomonas aeruginosa Complete 05/20/25 12:10 Blood Blood Culture - Final NO GROWTH AFTER 5 DAYS OF INCUBATION. Complete 05/20/25 12:05 Pleural Fluid Gram Stain - Final Complete 05/20/25 12:05 Pleural Fluid Aerobic Culture - Final Complete 05/19/25 09:00 Stool Stool Culture - Final Complete 05/19/25 09:00 Stool Shiga Toxin I & II - Final Complete 05/16/25 10:50 Bronchial Washings Gram Stain - Final Complete 05/16/25 10:50 Respiratory Culture - Final Yeast, not Reena albicans Complete 05/12/25 12:44 Voided Urine Urine Culture - Final Complete Problem List/Assessment/Plan Problem List/Assessment/Plan Neurology acute metabolic encephalopathy likely due to hypercarbic respiratory failure, resolved - patient is alert and oriented Cardiovascular 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 Neck hematoma S/p CVC removal from right brachiocephalic/subclavian artery New onset atrial fibrillation/atrial flutter (2-1) with a RVR, resolved Possible sick sinus syndrome Hypertensive heart disease with systolic failure - echocardiogram showed LVEF 25% with severe LV and RV global hypokinesis - goal directed medical therapy with carvedilol, Jardiance, Entresto, spironolactone - no arrhythmias noted - most recent CT angio neck showed hematoma of 10.5 X5.6 cm with no active arterial extravasation - chads Vasc 5, but anticoagulation held because of hematoma Respiratory Acute on chronic hypercapnic respiratory failure likely due to COPD exacerbation, resolved S/p mechanical ventilation Pneumonia likely due to Gram +/-bacteria/fungus Pleural effusion likely parapneumonic Mixed metabolic alkalosis with respiratory alkalosis S/p bronchoscopy S/p tracheostomy Status post thoracentesis X 2 Oral thrush - decrease the size of the tracheostomy on 06/02 to 7.5 mm - on one way speaking valve since 06/03 evening - levalbuterol, ipratropium and acetylcysteine q.12hours - minimal secretions - repeat cultures showed growth of Gram-negative rods- Pseudomonas aeruginosa - consolidation in the right lower lobe seen on chest CT done on 06/04 - antibiotics stopped 06/11 as the patient has no active fever and WBC count has been normal for the last 5 days Hem/onc Anemia, normochromic, normocytic Thrombocytopenia, resolved - Hemoglobin improving, continue monitoring Endocrinology/gastroenterology DM type 2, hba1c 6.7 - ISS, moderate Renal Hyperkalemia, resolved BAO due to VMN resolved Hypernatremia, resolved - continue monitoring electrolytes and kidney function DVT prophylaxis: on enoxaparin PUD prophylaxis: Protonix PICC line right upper arm 05/01/25 Tracheostomy 05/13 tracheostomy removed 06/10 kenney's removed today Code status: full code Goals of care discussed with the patient's daughter at bedside. Patient's tracheostomy cannula was removed yesterday, no respiratory distress noted after that.Kenney's catheter removed today. Critical care time spent excluding procedures: 46 minutes Plan discussed with Dr. Corrales Plan discussed with: Patient, Daughter My Orders My Orders Orders - ANSHUL DAY Procedure Category Date Status Time Complete Blood Count LAB 06/12/25 Verified 04:00 Basic Metabolic Panel LAB 06/12/25 Verified 04:00 Dietary Evaluation Review Comments: Nutrition Recommendation: 1. TF Vital AF 1.2 Luis Enrique @ 60 ml/hr. start @ 20ml/hr, increase 10ml/hr Q4H until goal is reached. TF at goal volume provides 100% energy & protein needs - 1728 kcal, 108 gm protein, 1168 ml free water 2. Water flush 140ml Q6H if allowed 3. TPN if NPO> 7 days Expected Outcomes/Goals: To meet >75% estimated needs Fu 2-3 days Date of Service: Jun 11, 2025 Billing Provider: PAMELA CORRALES MD Common Visit Codes: 79490-EVFVNOIX CARE 30-74 MIN ANSHUL DAY Jun 11, 2025 17:54 PAMELA CORRALES MD Jun 13, 2025 12:20
[2025-06-12] VITALS (26 sets, daily range): BP systolic 55–128; BP diastolic 42–69; PULSE 61–90; RESP 12–27; TEMP 97.9–98.6; O2SAT 89–100
[2025-06-12 06:10] LABS: Hematocrit 39.1 % (41.0-53.0); Hemoglobin 13.1 g/dL (13.5-17.5); Mean Corpuscular Hemoglobin 30.6 pg (28.0-32.0); Mean Corpuscular Volume 91.4 fL (80.0-100.0); Nucleated Red Blood Cells % 0.1 %; Potassium 4.8 mmol/L (3.5-5.1)
[2025-06-12 06:11] LABS: Anion Gap 7 (5-15); Carbon Dioxide 32 mmol/L (20-31); Chloride 96 mmol/L (98-107); Sodium 135 mmol/L (136-145)
[2025-06-12 06:12] LABS: Calcium 8.8 mg/dL (8.7-10.4)
[2025-06-12 06:16] LABS: BUN/Creatinine Ratio 29.0 (10.0-20.0); Blood Urea Nitrogen 18 mg/dL (9-23); Glucose 105 mg/dL (74-106)
[2025-06-12] MEDS: LEVALBUTEROL HCL 1.25 MG/3 ML NEB ONE (06:58)
[2025-06-12] MEDS: IPRATROPIUM BROM 0.5 MG/2.5ML INH SOL ONE (06:58)
[2025-06-12] MEDS ORDERED: SPIR25TA NG (12:19)
[2025-06-12] MEDS ORDERED: CARV-214 PO (12:19)
[2025-06-12] MEDS ORDERED: SACU1TAB PO (12:19)
[2025-06-12] MEDS ORDERED: EMPA1TAB PO (12:19)
[2025-06-12] MEDS ORDERED: TAMS-35 PO (12:19)
--- NOTE | 2025-06-12 13:00 | DVHDSRES ---
Discharge Summary Date of Admission Resident Creating Document: ANSHUL DAY RESIDENT Apr 23, 2025 at 04:58 Date of Discharge: Jun 12, 2025 Admitting Diagnosis hypertensive emergency/urgency essential hypertension, likely uncontrolled cardiomegaly dt possible underlying cardiomyopathy CHF exacerbation acute hypoxic respiratory failure bilateral pleural effusion Possible underlying left lower lobe pneumonia Wounds: 1 X 2 cm superficial wound on the left side of gluteal cleft Labs/Diagnostic Data: Laboratory Results Test 06/12/25 05:23 06/11/25 12:34 06/09/25 05:24 06/07/25 04:15 White Blood Count 7.6 10^3/uL (4.4-10.8) Red Blood Count 4.28 10^6/uL (4.5-5.90) Hemoglobin 13.1 g/dL (13.5-17.5) Hematocrit 39.1 % (41.0-53.0) Mean Corpuscular Volume 91.4 fL (80.0-100.0) Mean Corpuscular Hemoglobin 30.6 pg (28.0-32.0) Mean Corpuscular Hemoglobin Concent 33.4 g/dL (32.0-36.0) Red Cell Distribution Width 17.1 % (11.8-14.3) Platelet Count 235 10^3/uL (140-450) Mean Platelet Volume 9.0 fL (6.9-10.8) Neutrophils (%) (Auto) 53.5 % (37.0-80.0) Lymphocytes (%) (Auto) 24.2 % (10.0-50.0) Monocytes (%) (Auto) 7.9 % (0.0-12.0) Eosinophils (%) (Auto) 13.3 % (0.0-7.0) Basophils (%) (Auto) 1.1 % (0.0-2.0) Neutrophils # (Auto) 4.1 10 ^3/uL (1.6-8.6) Lymphocytes # (Auto) 1.8 10 ^3/uL (0.4-5.4) Monocytes # (Auto) 0.6 10 ^3/uL (0-1.3) Eosinophils # (Auto) 1.0 10 ^3/uL (0-0.8) Basophils # (Auto) 0.1 10 ^3/uL (0-0.2) Nucleated Red Blood Cells 0.1 % Sodium Level 135 mmol/L (136-145) Potassium Level 4.8 mmol/L (3.5-5.1) Chloride Level 96 mmol/L (98-107) Carbon Dioxide Level 32 mmol/L (20-31) Anion Gap 7 (5-15) Blood Urea Nitrogen 18 mg/dL (9-23) Creatinine 0.62 mg/dL (0.700-1.30) Glomerular Filtration Rate Calc 98 mL/min (>90) BUN/Creatinine Ratio 29.0 (10.0-20.0) Serum Glucose 105 mg/dL (74-106) Calcium Level 8.8 mg/dL (8.7-10.4) Blood Gas Specimen Type Arterial Blood Gas Sample Site Right radial Blood Gas Patient Temperature 34.0 Arterial Blood Date Drawn [id number] Arterial Blood pH 7.443 (7.350-7.450) Arterial Blood Partial Pressure CO2 42.0 mmHg (35.0-48.0) Arterial Blood Partial Pressure O2 54.5 mmHg (83.0-108.0) Arterial Blood HCO3 28.1 mmol/L (21.0-28.0) Arterial Blood Oxygen Saturation 88.1 % (94.0-98.0) Arterial Blood Base Excess 3.6 mmol/L (-2.0-3.0) Arterial Blood Oxyhemoglobin 87.3 % (94.0-98.0) Arterial Blood Carboxyhemoglobin 0.4 % (0.5-1.5) Arterial Blood Methemoglobin 0.5 % (0.0-1.5) Darrius Test Yes Blood Gas Total Hemoglobin 12.30 g/dL (13.5-17.5) Blood Gas Modality Room air FiO2 % 21.0 Blood Gas Critical Value Read Back yes Blood Gas Notified Whom j shakeel Blood Gas Notified Time [id number] Blood Gas Notified By railroad car loader t deborah Magnesium Level 2.1 mg/dL (1.6-2.6) Total Bilirubin 0.5 mg/dL (0.2-1.0) Aspartate Amino Transferase (AST) 28 U/L (13-40) Alanine Aminotransferase (ALT) 20 U/L (7-40) Alkaline Phosphatase 85 U/L (46-116) B-Type Natriuretic Peptide 80.29 pg/mL (0-100) Total Protein 6.9 g/dL (5.7-8.2) Albumin 3.6 g/dL (3.2-4.8) Test 06/01/25 12:42 05/31/25 08:29 05/30/25 09:01 05/22/25 06:20 POC Glucose 158 mg/dl (70-106) Blood Gas Liter Flow 10.00 Blood Gas Set Respiration Rate 10.0 Blood Gas Tidal Volume 450.0 Blood Gas Pressure Support 8 Blood Gas PEEP or CPAP 5.0 Blood Gas Spontaneous Rate 16 Test 05/20/25 12:05 05/19/25 15:00 05/19/25 09:00 05/18/25 08:41 Body Fluid Source Pleural fluid Body Fluid pH 8.0 Body Fluid WBC (Manual) 1628 CUMM (0-200) Body Fluid RBC (Manual) 4455 CUMM (0-2000) Body Fluid Mononuclear Cells 94 % Body Fluid Polymorphonuclear Cells 6 % (0-25) Body Fluid Glucose 112 mg/dL (.) Body Fluid Total Protein 2.8 g/dL (.) Body Fluid Lactate Dehydrogenase 185 IU/L (.) Urine Color Colorless (Yellow) Urine Clarity Turbid (Clear) Urine pH 6.0 (5.0-9.0) Urine Specific [place] 1.016 (1.001-1.035) Urine Protein 1+ (Negative) Urine Ketones Negative (Negative) Urine Blood 3+ /uL (Negative) Urine Nitrite Negative (Negative) Urine Bilirubin Negative (Negative) Urine Urobilinogen 2 mg/dL (Negative) Urine Leukocyte Esterase 2+ /uL (Negative) Urine RBC 274 /hpf (0 - 3) Urine Microscopic WBC 16 /HPF (0-3) Urine Squamous Epithelial Cells None seen /hpf (<5) Urine Bacteria None seen /hpf (None Seen) Urine Mucus Few (None Seen) Urine Glucose Normal mg/dL (Normal) Stool for White Cells None seen Vancomycin Level Trough 13.4 ug/mL (5-10) Test 05/14/25 03:40 05/12/25 06:20 05/07/25 03:00 04/27/25 03:00 Prothrombin Time 11.0 sec (9.3-11.8) Prothrombin Time INR 1.04 (0.9-1.15) Activated Partial Thromboplast Time 29.9 SEC (24.5-34.5) Specimen Drawn By Moises railroad car loader Lactate Dehydrogenase 331 U/L (120-246) Random Vancomycin Level 16.8 ug/mL (5-10) Platelet Estimate Decreased Clumped Platelets Few Triglycerides Level 92 mg/dL (< 150) Cholesterol Level 135 mg/dL (< 200) LDL Cholesterol 100 mg/dL (< 100) HDL Cholesterol 33 mg/dL (40-59) Test 04/25/25 08:15 04/23/25 19:49 04/23/25 07:20 04/23/25 07:04 Lactic Acid Level 3.0 mmol/L (0.4-2.0) Blood Gas EPAP 7 Blood Gas IPAP 22 Influenza Type A Antigen Negative (Negative) Influenza Type B Antigen Negative (Negative) SARS-CoV-2 Antigen (Rapid) Negative (NEGATIVE) Erythrocyte Sedimentation Rate 1 mm/hr (0-20) D-Dimer, Quantitative 1.97 mg/L FEU (0.0-0.49) Direct Bilirubin 0.4 mg/dL (<0.3) C-Reactive Protein High Sensitivity 0.38 mg/dL (<1.0) Thyroid Stimulating Hormone (TSH) 0.85 uIU/mL (0.55-4.78) Test 04/23/25 04:28 04/23/25 01:29 Troponin I High Sensitivity 36 ng/L (</=54) Hemoglobin A1c 6.7 % A1C (<5.7) Other Laboratory Tests 06/12/25 05:23 Brief Hx & Hospital Course: Patient presented to the hospital with elevated blood pressure, had shortness of breath , chest x-ray showing bilateral pleural effusions left greater than the right and bilateral congestion with a ABG showing respiratory acidosis following which the patient was put on BiPAP with mild improvement in respiratory status but eventually as his PCO2 levels remained elevated above 85mmhg and continued to have respiratory distress following which he was intubated and put on mechanical ventilation on 04/23. A right IJV CVC was attempted to be placed but it was misplaced and on CT angio neck it was seen coursing through the right neck entering into the right brachiocephalic artery and coursing into the aortic arch and Moderate soft tissue edema and intermediate density soft tissue in the deep right supraclavicular neck which could reflect blood products likely related to the malpositioned right central venous catheter. IR were consulted to remove the CVC and they did an angiogram and found Central line tip visualized in the aortic arch. Entrance site of the right central line is at the proximal subclavian artery adjacent to the vertebral artery. Removal of right central catheter from the artery shows no extravasation after balloon angioplasty and manual pressure. Completion angiogram shows patency of the right brachiocephalic, carotid, subclavian, and vertebral artery. ECHO showed LVEF 25% with severe LV and RV global hypokinesis following which the patient underwent coronary angiography for ischemic workup but no obstructive coronary artery disease were found. Patient was noted to have new onset atrial fibrillation/atrial flutter with intermittant RVR following which the patient was started on amiodarone which was discontinued shortly after given slow ventricular rate/pauses and patient was started on therapeutic lovenox. Patient was extubated on 05/02. On 05/03, neck bruise was seen to be expanding following which neck CT angio was done which showed Large hematoma in the right neck and upper chest. Active extravasation is present in the right supraclavicular soft-tissue possibly related to a small arterial branch from the right common carotid artery. Area of injury appears to correspond to course of prior arterial catheter which was removed on 04/24/2025. Lovenox was stopped. Patient was intubated again for airway protection. Interventional Radiology were consulted and CL ANGIO BRACHIAL RETRO S I was done and they found right brachiocephalic, subclavian, and carotid arteries are patent and unremarkable. The right vertebral artery, internal mammary, thyrocervical arteries appear patent. No contrast extravasation was visualized. No clear abnormality / contrast extravasation seen at the location of the prior central venous catheter insertion site on the proximal right subclavian artery. Patient was seen to have heart rate going into the 40s likely due to sick sinus syndrome following which fixed dose dopamine started. On 05/07 patient's hematoma was looking bigger following which CT angio was done which showed large heterogeneous hematoma in the right lower neck which measures 9.9 into 5.9 cm without any evidence of acute arterial extravasation. On 05/10 right shoulder hematoma again look to be increase in size but the hemoglobin and platelets were stable and the patient was hemodynamically stable. Patient was eventually weaned off dopamine and vasopressors and after extensive discussion with the family patient underwent a tracheostomy on 05/13 with a size 8.5 coughed nonfenestrated tracheostomy tube was placed. We started due reduced sedation and repeat CT angio of the neck showed right neck/scapular region hypodense collection/lesion measuring 10.5-5.6 cm similar to previous examination, no definitive extravasation was seen. Sputum cultures from the patient's 0 growth of Klebsiella pneumoniae Pseudomonas aeruginosa and bronchial washings from bronchoscopy done on 05/16 showed growth of yeast. Patient was treated with antibiotics including meropenem and micafungin. Patient was gradually weaned off from mechanical ventilation with SIMV and then on the trach collar. Patient had increased secretions from the tracheostomy following which CT chest was done which showed right lower pneumonia and was started on meropenem and tobramycin with gradual improvement of secretions. As he had good cough reflex, he eventually weaned of the trach collar and was put on oxygen via nasal cannula with gradual improvement of respiratory status and no respiratory distress patient was then put on a [address] valve which he tolerated well. Patient was started on guideline directed medical therapy with the low- dose Entresto, carvedilol, spironolactone and empagliflozin which he tolerated well. After noting no respiratory distress while on the one-way valve, the tracheostomy cannula was capped and patient showed no signs of respiratory distress for over 24 hours following which the tracheostomy was decannulated and closed with a bandage. Patient passed a swallow evaluation and was tolerating pureed diet well. He did not complain of any difficulty swallowing, no pain on swallowing, no abdominal pain. Physical therapy worked extensively with the patient and on the day of discharge patient was able to walk more than 40 ft with minimal assistance with a front wheel walker. Roman's catheter was removed and patient is able to urinate. Physical examination Constitutional: Patient is alert and oriented X 4. No respiratory distress noted Gen - no pallor, no icterus, no cyanosis, no edema . Skin - Patients skin is warm and dry. HEENT - normocephalic, atraumatic, moist mucous membranes. Neck -no swelling, no LAD, no JVD Pulmonary - B/L equal breath sounds, improved crackles in the right lower side, no wheezing, no stridor. cardiovascular - regular S1,S2 heard, no added sounds, no murmurs heard. peripheral pulses normal radial 2+, pedal 2+. capillary refill normal <2 secs. GI - soft, nontender abdomen. Bowel sounds normoactive Neurological - Bilateral upper extremity strength 4/5, bilateral lower extremity strength 4/5, no facial droop, no sensory deficiets. Discharge plan: Medications: Entresto was not approved by the insurance, patient discharged on valsartan 20 mg b.i.d., carvedilol 3.125 b.i.d., Jardiance 10 mg daily, spironolactone 25 mg daily, tamsulosin 0.4 mg Follow up in the discharge clinic on Sunday with Dr. Sapp. Operations or Procedures Operative Report - 2 Report Details Date: 04/29/25 Preop Diagnosis: Coronary artery disease Postop Diagnosis: Cardiomyopathy Surgeon: Holly Enamorado MD Anesthesiologist: Conscious sedation Anesthesia: Mac, Local Consent: The patient was informed of the risks and benefits of the procedure. These include but are not limited to complications of anesthesia, postoperative infection, incomplete relief of symptoms, recurrence of symptoms, damage to blood vessels, nerves and tendons, deep venous thrombosis, pulmonary embolism and possible need for repeat surgery in the future. Complications: No complications Findings: Cardiomyopathy Indications for Surgery: Cardiomyopathy Name of Procedure Performed Bilateral cine coronary angiography. Procedure Details Procedure Details: Prior local anesthesia with 2% lidocaine to the left groin and full informed consent obtained the patient was prepped and draped in usual fashion followed by placement of a six Ecu[place]orean sheath. Six [place] catheter was used to cannulate both right and left coronary ostia. A pigtail catheter evaluation of the left ventricle was not performed. Hemodynamics aortic blood pressure was 130/70. End-diastolic pressure was not measured. Coronary anatomy: The RCA is a large vessel it is normal in its proximal mid and distal segments. The PDA and posterolateral branches are normal. Left main is large and normal. Left anterior descending is large and normal. Two diagonals free of significant disease. The circumflex is large with two marginals free of significant disease. Ventriculography not performed. Impression: Normal coronary arteries. No significant CAD. Recommendations: Continue risk factor modifications. Initiate therapy for CHF and guideline medical therapy for cardiomyopathy. Condition Guarded Disposition 2 Still a Patient Date of Service: Apr 29, 2025 Billing Provider: HOLLY ENAMORADO Sr., MD Cardiology Common Codes: 66789-PYMMFET INP/OBS CARE (High) Cardiology Procedure Codes: 64543-DQBW ADD COR ART/BRNCH/GRFT HOLLY ENAMORADO Sr., MD Apr 29, 2025 16:18 DICTATED BY:HOLLY ENAMORADO Sr., MD DICTATED DATE/TIME:04/29/25 1618 ELECTRONICALLY SIGNED BY:HOLLY ENAMORADO Sr., MD 04/29/25 1618 DATE OF SURGERY: 05/13/2025 PREOPERATIVE DIAGNOSIS: Ventilator-dependent respiratory failure. POSTOPERATIVE DIAGNOSES: Ventilator-dependent respiratory failure plus right cervical hematoma. HOSPITAL COURSE: The patient was admitted with worsening pulmonary condition and underwent an intubation following which he is remaining ventilator dependent. He had a catheter placed into the right jugular vein, which was misplaced into the innominate artery. The patient required an endovascular intervention to correct this problem and subsequently developed a hematoma in the right neck extending into the mediastinum. He is now referred for tracheostomy to facilitate extubation eventually. The patient is under general anesthesia administered by Dr. Layton. The neck and chest prepped and draped. An incision was made into the lower neck ____ the patient's soft tissues divided with electrocautery. The hematoma was entered and retracted laterally. There was some aspiration of old blood with no evidence of ongoing hemorrhage. The patient's thyroid had to be displaced inferiorly facilitating access to the trachea. The second space between the cartilaginous portion of the trachea was then incised with the patient on room air to facilitate the exchange of tubes without a fire danger. A size 8 cuffed non-fenestrated tracheostomy tube was then advanced into the tracheotomy as the anesthesiologist withdrew the endotracheal tube. Reaching the final position, the tracheostomy revealed immediate capture of CO2 and return of normal ventilation. The tube was secured with insufflation of the cuff with 7 mL of air, further secured with two interrupted Prolene sutures and a circumferential umbilical tape provided in the kit. The patient remained in unchanged condition at the termination of the procedure. Chest x-ray was ordered and is pending at the time of this dictation. The patient's daughter, Joslyn, was thoroughly informed at [phone]. MD SANTOSH Luna/SHAWANDA/HIEU TID: [id number] RECEIPT: [id number] DICTATED BY:VANESA LEONARD MD DICTATED DATE/TIME:05/13/25 1200 ELECTRONICALLY SIGNED BY:VANESA LEONARD MD 05/15/25 1137 Condition at Discharge: Good Final Diagnosis/Problems List 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 Neck hematoma, resolved Pneumonia likely due to pseudomonas Anemia, normochromic, normocytic DM type 2, borderline Discharge Disposition: Home with Health Services Discharge Instruct/Medications Diet: See Comment Diet comment: Continue pureed diet and advance to mechanical soft diet diet as tolerated Activity: No Restrictions, As Tolerated Follow Up/Referral: Follow up in the discharge clinic in 1 week Medications: as per MAR Scheduled Carvedilol (Coreg), 3.125 MG PO Q12HR Empagliflozin (Jardiance), 10 MG PO DAILY Sacubitril-Valsartan (Entresto 24-26 mg), 0.5 TAB PO BID Spironolactone (Aldactone), 25 MG NG DAILY Tamsulosin Hcl (Flomax), 0.4 MG PO QPM Valsartan (Valsartan), 40 MG PO DAILY Discharge Statement: "Patient was advised to return to the ER or call 911 if any headaches, dizziness, shortness of breath, chest pain, abdominal pain, bleeding, fevers, or worsening of medical condition. Patient was counseled about treatment plan, medications, possible side effects, patientverbalized understanding. All questions were answered to the best of my ability. This discharge took greater then 30 minutes in planning, reviewing documentation, counseling the patient, and discussing with other team members." ASSESSMENT ASSESSMENT Assessment 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 Neck hematoma, resolved Pneumonia likely due to pseudomonas Anemia, normochromic, normocytic DM type 2, borderline ANSHUL DAY RESIDENT Jun 12, 2025 13:00
[2025-06-12] MEDS ORDERED: VALS1TAB57 PO (13:06)
== END 2025-06-12 16:11 | disposition home health service (06) | DRG 4 ==
LOC: EDSEX 00:31 → ER 00:31 → OVERFLOW 04:58 → ICU WEST 18:04 → DOU IN ADS 06-03 19:30 → OVERFLOW 06-09 10:46 → DOU 06-09 10:52 → OVERFLOW 06-09 11:22 → DOU 06-09 11:32 → UNDODISIN 06-12 16:11
PROVIDERS: ADMIT Internal Medicine; ATTEND Emergency Medicine
PROC: 5A1955Z Respiratory Ventilation, Greater than 96 Consecutive Hours (ICD-10-PCS; principal; 2025-04-23)
PROC: 0BH17EZ Insertion of Endotracheal Airway into Trachea, Via Natural or Artificial Opening (ICD-10-PCS; 2025-04-23)
PROC: 5A09357 Assistance with Respiratory Ventilation, Less than 24 Consecutive Hours, Continuous Positive Airway Pressure (ICD-10-PCS; 2025-04-23)
PROC: 06HY33Z Insertion of Infusion Device into Lower Vein, Percutaneous Approach (ICD-10-PCS; 2025-04-23)
PROC: 05HM33Z Insertion of Infusion Device into Right Internal Jugular Vein, Percutaneous Approach (ICD-10-PCS; 2025-04-24)
PROC: B543ZZA Ultrasonography of Right Jugular Veins, Guidance (ICD-10-PCS; 2025-04-24)
PROC: 03773ZZ Dilation of Right Brachial Artery, Percutaneous Approach (ICD-10-PCS; 2025-04-24)
PROC: 05H533Z Insertion of Infusion Device into Right Subclavian Vein, Percutaneous Approach (ICD-10-PCS; 2025-04-24)
PROC: B546ZZA Ultrasonography of Right Subclavian Vein, Guidance (ICD-10-PCS; 2025-04-24)
PROC: B3111ZZ Fluoroscopy of Right Brachiocephalic-Subclavian Artery using Low Osmolar Contrast (ICD-10-PCS; 2025-04-24)
PROC: B211YZZ Fluoroscopy of Multiple Coronary Arteries using Other Contrast (ICD-10-PCS; 2025-04-29)
PROC: 02HV33Z Insertion of Infusion Device into Superior Vena Cava, Percutaneous Approach (ICD-10-PCS; 2025-05-01)
PROC: B548ZZA Ultrasonography of Superior Vena Cava, Guidance (ICD-10-PCS; 2025-05-01)
PROC: 5A1955Z Respiratory Ventilation, Greater than 96 Consecutive Hours (ICD-10-PCS; 2025-05-03)
PROC: 0BH17EZ Insertion of Endotracheal Airway into Trachea, Via Natural or Artificial Opening (ICD-10-PCS; 2025-05-04)
PROC: 30233R1 Transfusion of Nonautologous Platelets into Peripheral Vein, Percutaneous Approach (ICD-10-PCS; 2025-05-07)
PROC: 0B110F4 Bypass Trachea to Cutaneous with Tracheostomy Device, Open Approach (ICD-10-PCS; 2025-05-13)
PROC: 0B9M8ZZ Drainage of Bilateral Lungs, Via Natural or Artificial Opening Endoscopic (ICD-10-PCS; 2025-05-16)
PROC: 0W9B3ZZ Drainage of Left Pleural Cavity, Percutaneous Approach (ICD-10-PCS; 2025-05-20)
PROC: 0W9B3ZX Drainage of Left Pleural Cavity, Percutaneous Approach, Diagnostic (ICD-10-PCS; 2025-05-20)
DX: I11.0 Hypertensive heart disease with heart failure (principal); N17.0 Acute kidney failure with tubular necrosis; G93.41 Metabolic encephalopathy; J15.0 Pneumonia due to Klebsiella pneumoniae; J15.1 Pneumonia due to Pseudomonas; J15.69 Pneumonia due to other Gram-negative bacteria; D69.6 Thrombocytopenia, unspecified; I47.10 Supraventricular tachycardia, unspecified; I48.92 Unspecified atrial flutter; I50.23 Acute on chronic systolic (congestive) heart failure; J96.01 Acute respiratory failure with hypoxia; J15.9 Unspecified bacterial pneumonia; T82.524A Displacement of infusion catheter, initial encounter; J44.0 Chronic obstructive pulmonary disease with (acute) lower respiratory infection; J44.1 Chronic obstructive pulmonary disease with (acute) exacerbation; J96.02 Acute respiratory failure with hypercapnia; I49.5 Sick sinus syndrome; Z99.11 Dependence on respirator [ventilator] status; I42.0 Dilated cardiomyopathy; S27.892A Contusion of other specified intrathoracic organs, initial encounter; K59.01 Slow transit constipation; I42.8 Other cardiomyopathies; Z93.0 Tracheostomy status; E87.0 Hyperosmolality and hypernatremia; E11.9 Type 2 diabetes mellitus without complications; E78.5 Hyperlipidemia, unspecified; E87.4 Mixed disorder of acid-base balance; I16.1 Hypertensive emergency; D64.9 Anemia, unspecified; S10.83XA Contusion of other specified part of neck, initial encounter; E66.9 Obesity, unspecified; J98.11 Atelectasis; E87.5 Hyperkalemia; I48.0 Paroxysmal atrial fibrillation; I25.10 Atherosclerotic heart disease of native coronary artery without angina pectoris; Z87.891 Personal history of nicotine dependence; Z82.5 Family history of asthma and other chronic lower respiratory diseases; Z82.49 Family history of ischemic heart disease and other diseases of the circulatory system; Z79.84 Long term (current) use of oral hypoglycemic drugs; Y92.89 Other specified places as the place of occurrence of the external cause; Z68.29 Body mass index [BMI] 29.0-29.9, adult; Y84.8 Other medical procedures as the cause of abnormal reaction of the patient, or of later complication, without mention of misadventure at the time of the procedure; X58.XXXA Exposure to other specified factors, initial encounter; Y93.89 Activity, other specified; Y92.234 Operating room of hospital as the place of occurrence of the external cause; Y99.8 Other external cause status
CPT/HCPCS: 32555; 36415; 36556; 36569; 36600; 37246; 70450; 70491; 70498; 71045; 71250; 71260; 71275; 75710; 76000; 76604; 76937; 76942; 80048; 80053; 80061; 80076; 80202; 81001; 82565; 82805; 82962; 83036; 83605; 83615; 83735; 83880; 83986; 84132; 84443; 84484; 85014; 85018; 85025; 85048; 85049; 85379; 85610; 85652; 85730; 86141; 86850; 86900; 86901; 86920; 87040; 87045; 87070; 87077; 87081; 87086; 87186; 87205; 87426; 87427; 87804; 89051; 92610; 93005; 93306; 93458; 93970; 94002; 94003; 94640; 94660; 96374; 96375; 97110; 97116; 97163; 97530; 99152; A4605; C1769; C1894; G0378; J0330; J1450; J1815; J1956; J2185; J2248; J2250; J2470; J2543; J2704; J3430; J3480; J3490; Q9967